=== PATIENT | male | born 1965 | race Caucasian/White ===

== ENCOUNTER 2020-05-08 10:05 | Outpatient (RCR) | payer OTHER, SELFPAY | END 2021-02-13 12:54 | disposition home or self-care (01) | LOC: HO.WCC 10:05 | PROVIDERS: PCP Nurse Practitioner Family; Visit Provider Surgery | DX: E11.621 Type 2 diabetes mellitus with foot ulcer (principal); E11.51 Type 2 diabetes mellitus with diabetic peripheral angiopathy without gangrene; L97.422 Non-pressure chronic ulcer of left heel and midfoot with fat layer exposed; E11.65 Type 2 diabetes mellitus with hyperglycemia; I10 Essential (primary) hypertension; B20 Human immunodeficiency virus [HIV] disease; F17.210 Nicotine dependence, cigarettes, uncomplicated; Z79.899 Other long term (current) drug therapy; Z79.891 Long term (current) use of opiate analgesic; Z79.4 Long term (current) use of insulin | CPT/HCPCS: 11042; 11043; 11045; 11046; 15275; 17250; 97597; 97605; 99183; 99212; 99213; Q4186; Q4187 ==

== ENCOUNTER 2020-06-26 09:56 | Outpatient (REF) | payer OTHER, SELFPAY ==
--- NOTE | 2020-06-26 10:10 | XR_ITS ---
EXAMINATION: XR CALCANEUS, LEFT CLINICAL INFORMATION: Diabetic foot ulcer COMPARISON: None TECHNIQUE: Lateral and axial views of the left calcaneus were obtained. FINDINGS: There is a soft tissue defect over the heel. There is adjacent periosteal reaction, osteopenia and bone loss of the posterior calcaneus questionable for osteomyelitis. There are calcaneal spurs. No fracture or dislocation is seen. XR/XR calcaneus LT min 2V IMPRESSION: Soft tissue defect over the posterior heel. There is periosteal reaction, focal osteopenia of bone loss of the adjacent posterior calcaneus questionable for osteomyelitis.
== END 2020-06-26 09:57 | disposition home or self-care (01) ==
LOC: HO.XRAY 09:56
PROVIDERS: PCP Registered Nurse; Visit Provider Surgery
DX: E11.621 Type 2 diabetes mellitus with foot ulcer (principal); L97.529 Non-pressure chronic ulcer of other part of left foot with unspecified severity
CPT/HCPCS: 73650

== ENCOUNTER → 2020-07-06 11:32 | Outpatient (BNVA) | payer OTHER, SELFPAY | PROVIDERS: Visit Provider Internal Medicine | DX: M86.9 Osteomyelitis, unspecified (principal); B20 Human immunodeficiency virus [HIV] disease | CPT/HCPCS: 99212 ==

== ENCOUNTER 2020-07-17 14:03 | Outpatient (REF) | payer OTHER, SELFPAY ==
--- NOTE | 2020-07-17 14:25 | XR_ITS ---
EXAMINATION: XR CHEST CLINICAL INFORMATION: Preprocedure COMPARISON: None TECHNIQUE: 2 views of the chest were obtained. FINDINGS: No significant abnormality is noted involving the heart, lungs, mediastinum, bony thorax or soft tissues. XR/XR chest 2V IMPRESSION: Unremarkable chest examination.
[2020-07-17 15:32] LABS: MANUAL DIFF FLAG NO
[2020-07-17 15:42] LABS: Basophils Absolute Auto 0.1 X10*3/uL (0.0-0.2); Basophils Percent Auto 0.8 % (0-2); Eosinophils Absolute Auto 0.3 X10*3/uL (0.0-0.4); Eosinophils Percent Auto 2.7 % (0-4); Hematocrit 35.8 % (42-52); Hemoglobin 12.4 g/dl (14.0-18.0); Imm Gran Abs Auto 0.05 X10*3/uL (0.00-0.03); Imm Gran Pct Auto 0.5 % (0.0-0.4); Lymphocytes Percent Auto 26.8 % (20-40); Mean Corpuscular HGB Conc 34.6 g/dl (31.0-36.0); Mean Corpuscular Hemoglobin 31.6 pg (27.0-33.0); Mean Corpuscular Volume 91.1 fL (80-98); Mean Platelet Volume 12.6 fL (9.4-12.4); Monocytes Absolute Auto 0.6 X10*3/uL (0.1-1.2); Neutrophils Absolute Auto 7.1 X10*3/uL (2.0-8.3); Neutrophils Percent Auto 64.2 % (45-73); Platelet Count 149 X10*3/uL (160-400); Red Blood Count 3.93 X10*6/uL (4.60-5.80); White Blood Count 11.1 X10*3/uL (4.8-10.8)
[2020-07-17 15:45] LABS: Estimated Average Glucose 235 mg/dL; Hemoglobin A1c % 9.8 %
[2020-07-17 15:57] LABS: Anion Gap 16 (12-20); Blood Urea Nitrogen 37 mg/dL (9-16); C Reactive Protein 0.44 mg/dL (< or = 0.50); Carbon Dioxide 31 mmol/L (22-29); Chloride 96 mmol/L (96-108); Estimated Glomerular Filt Rate 40; Glucose Fasting 258 mg/dL (60-99); Potassium 5.5 mmol/l (3.3-5.1); Sodium 137 mmol/L (135-145)
[2020-07-17 16:37] LABS: Erythrocyte Sedimentation Rate 62 MM/HR (0-15)
== END 2020-07-17 14:04 | disposition home or self-care (01) ==
LOC: HO.LAB 14:03
PROVIDERS: PCP Registered Nurse; Visit Provider Physician Assistant
DX: Z01.818 Encounter for other preprocedural examination (principal); R61 Generalized hyperhidrosis
CPT/HCPCS: 36415; 71046; 80048; 83036; 84134; 85025; 85652; 86140

== ENCOUNTER 2020-08-01 09:12 | Emergency (ER) | payer OTHER, SELFPAY ==
--- NOTE | 2020-08-01 09:21 | ECG_ITS ---
Test Reason : CHESTPRESS Blood Pressure : / mmHG Vent. Rate : 086 BPM Atrial Rate : 086 BPM P-R Int : 126 ms QRS Dur : 082 ms QT Int : 368 ms P-R-T Axes : 031 -08 021 degrees QTc Int : 440 ms Normal sinus rhythm Normal ECG When compared with ECG of 15-NOV-2019 14:59, No significant change was found Referred By: Mildred Nguyen Electronically Signed By:WANDA KOEHLER
[2020-08-01 09:31] VITALS: BMI 37.5
[2020-08-01 09:54] LABS: MANUAL DIFF FLAG SCAN; Monocytes Absolute Auto 0.5 X10*3/uL (0.1-1.2); PLT CLUMP 1; SCAN SMEAR FLAG 1
[2020-08-01 09:56] LABS: Basophils Absolute Auto 0.1 X10*3/uL (0.0-0.2); Basophils Percent Auto 0.9 % (0-2); Eosinophils Absolute Auto 0.2 X10*3/uL (0.0-0.4); Eosinophils Percent Auto 2.3 % (0-4); Hematocrit 32.3 % (42-52); Hemoglobin 10.9 g/dl (14.0-18.0); Imm Gran Abs Auto 0.02 X10*3/uL (0.00-0.03); Imm Gran Pct Auto 0.3 % (0.0-0.4); Lymphocytes Absolute Auto 1.6 X10*3/uL (1.2-4.9); Lymphocytes Percent Auto 20.7 % (20-40); Mean Corpuscular HGB Conc 33.7 g/dl (31.0-36.0); Mean Corpuscular Hemoglobin 31.1 pg (27.0-33.0); Mean Corpuscular Volume 92.3 fL (80-98); Mean Platelet Volume 12.2 fL (9.4-12.4); Monocytes Percent Auto 6.6 % (2-11); Neutrophils Absolute Auto 5.3 X10*3/uL (2.0-8.3); Neutrophils Percent Auto 69.2 % (45-73); Platelet Count 119 X10*3/uL (160-400); Red Cell Distribution Width 12.9 % (11.0-16.0); White Blood Count 7.7 X10*3/uL (4.8-10.8)
--- NOTE | 2020-08-01 09:58 | ED.GENADULT ---
HPI - General Adult General Chief complaint: General Medical Stated complaint: wound check Time Seen by Provider: 08/01/20 09:23 Source: patient Mode of arrival: ambulatory Limitations: no limitations History of Present Illness HPI narrative: 55 y/o male with history of HIV, DM and chronic left heel osteomyelitis who was [facility] with recurrent episode of diaphoresis and feeling unwell when he was in the hypercarbic chamber. Per the provider there a similar event occurred last week. Symptoms resolved when he came out the chamber and his vital signs were stable (both last week and this week). Given recurrence of symptoms patient was sent to the ER for further evaluation. On arrival patient reports feeling unwell while in the chamber but his symptoms are now resolved. He states he was sweaty and anxious. He denied chest pain, SOB, arm pain, neck pain, jaw pain, nausea, abd pain. MD complaint: ?pre-syncopal event Onset (ago): hour(s) (1) Severity: moderate Pain Consistency: now resolved Relieving factors: rest Exacerbating factors: none Associated symptoms: diaphoresis Treatments prior to arrival: none Related Data Allergies Allergy/AdvReac Type Severity Reaction Status Date / Time trazodone [TRAZODONE] Allergy Unknown UNKNOWN Unverified 04/19/20 16:30 Review of Systems Review of Systems: Constitutional: No Fever, No Chills Cardiovascular: No Chest Pain, No SOB, No Orthopnea, No Edema Respiratory: No Cough, No Sputum, No Wheezing, No dyspnea Gastrointestinal: No Nausea, No Vomiting, No Diarrhea, No abdominal Pain Musculoskeletal: No joint pain, No Myalgias Skin: No Skin Lesions, No rash Neuro: No Weakness, No Numbness, No Dizziness, No Headache Psych: No Anxiety/Panic, No Depression Heme/Lymph: No Bruising, No Lymphadenopathy Endocrine: No Polyuria, No Polydipsia PMFSH Past Medical History Attestation statement: The following information was validated with the patient. Medical History HIV (human immunodeficiency virus infection) Osteomyelitis Surgical History S/P angiogram of extremity Status post debridement Family History Family History Father Diabetes HTN (hypertension) Mother HTN (hypertension) Daughter No problems noted. Social History Social History Smoking Status: Current some day smoker Cigarettes Per Day: 4 Use of substances other than those prescribed or required for medical reasons: No Advance Directives: No Advance Directives Information Provided: Yes Physical Exam Vital Signs: Vital Signs: Last Vital Signs Pulse 87 08/01/20 10:31 Resp 14 08/01/20 10:23 BP 143/64 H 08/01/20 10:31 Pulse Ox 98 08/01/20 10:23 Body Mass Index 37.5 Appearance: Alert. Oriented X3. No acute distress. Eyes: Pupils equal, round and reactive to light. ENT: Pharynx normal. Neck: Normal inspection. Neck supple. CVS: Normal heart rate and rhythm. Pulses normal. Respiratory: No respiratory distress. Breath sounds normal. Abdomen: Soft and nontender. +BS x4 Skin: Skin warm and dry. Normal skin color. Normal skin turgor. No rashes. Extremities: No lower extremity edema. LLE wound wrapped in clean, dry dressing Neuro: Oriented X 3. No motor deficit. No sensory deficit. Course Course Course Narrative: 55 y/o male with chronic osteo, DM, HIV presenting with possible pre-syncopal event while in [facility]. Symptoms now resolved and patient feels back to baseline. His vitals are stable and he appears well. EKG is unremarkable. Will get lab work and orthostatic VS. Doubt ACS. Reevaluation(s) Reevaluation #1: EKG normal. Metabolic workup only showing hyperglycemia with glucose 341 - his A1cv is 9.8% with estimate average glucose of 235. No anion gap. Electrolytes stable and troponin is <3.5. Orthostatics negative. He continues to feel at his baseline. He is stable for discharge. Medical Decision Making Lab Data Result diagrams: 08/01/20 09:45 08/01/20 09:45 Labs: Lab Results 08/01/20 08/01/20 08/01/20 Range/Units 09:45 09:45 09:45 WBC 7.7 (4.8-10.8) X10*3/uL RBC 3.50 L (4.60-5.80) X10*6/uL Hgb 10.9 L (14.0-18.0) g/dl Hct 32.3 L (42-52) % MCV 92.3 (80-98) fL MCH 31.1 (27.0-33.0) pg MCHC 33.7 (31.0-36.0) g/dl RDW 12.9 (11.0-16.0) % Plt Count 119 L (160-400) X10*3/uL MPV 12.2 (9.4-12.4) fL Immature Gran % (Auto) 0.3 (0.0-0.4) % Neut % (Auto) 69.2 (45-73) % Lymph % (Auto) 20.7 (20-40) % [place] % (Auto) 6.6 (2-11) % Eos % (Auto) 2.3 (0-4) % Baso % (Auto) 0.9 (0-2) % Lymph # (Auto) 1.6 (1.2-4.9) X10*3/uL [place] # (Auto) 0.5 (0.1-1.2) X10*3/uL Eos # (Auto) 0.2 (0.0-0.4) X10*3/uL Baso # (Auto) 0.1 (0.0-0.2) X10*3/uL Abs Immat Gran (auto) 0.02 (0.00-0.03) X10*3/uL Absolute Neuts (auto) 5.3 (2.0-8.3) X10*3/uL Absolute Nucleated RBC 0.000 (0.0-0.012) X10*3/uL Nucleated RBC % (auto) 0.0 (0.0-0.2) /100WBC Smear Tech's Comments Not Reportable Hold Blue Top Sodium 134 L (135-145) mmol/L Potassium 4.7 (3.3-5.1) mmol/l Chloride 97 (96-108) mmol/L Carbon Dioxide 28 (22-29) mmol/L Anion Gap 14 (12-20) BUN 35 H (9-16) mg/dL Creatinine 1.35 (0.5-1.4) mg/dL Estim Creat Clear Calc 72.7 Estimated GFR 55 Random Glucose 341 H (60-115) mg/dL Calcium 8.8 (8.4-10.2) mg/dL Magnesium 1.7 (1.6-2.6) mg/dL Total Bilirubin 0.3 (0.0-1.0) mg/dL Direct Bilirubin < 0.2 (0.0-0.5) mg/dL AST 15 (5-37) U/L ALT 19 (0-40) U/L Alkaline Phosphatase 99 (39-117) U/L Troponin I High Sens < 3.5 (<3.5-35.0) ng/L Total Protein 7.5 (6.5-8.0) g/dL Albumin 3.7 (3.5-5.0) g/dL Urine Color Urine Appearance Urine pH (5.0-8.0) Ur Specific [place] (1.005-1.025) Urine Protein (NEG-TRACE) MG/DL Urine Glucose (UA) (NEG) MG/DL Urine Ketones (NEG) MG/DL Urine Blood (NEG) Urine Nitrite (NEG) Ur Leukocyte Esterase (NEG) 08/01/20 08/01/20 Range/Units 09:45 10:32 WBC (4.8-10.8) X10*3/uL RBC (4.60-5.80) X10*6/uL Hgb (14.0-18.0) g/dl Hct (42-52) % MCV (80-98) fL MCH (27.0-33.0) pg MCHC (31.0-36.0) g/dl RDW (11.0-16.0) % Plt Count (160-400) X10*3/uL MPV (9.4-12.4) fL Immature Gran % (Auto) (0.0-0.4) % Neut % (Auto) (45-73) % Lymph % (Auto) (20-40) % [place] % (Auto) (2-11) % Eos % (Auto) (0-4) % Baso % (Auto) (0-2) % Lymph # (Auto) (1.2-4.9) X10*3/uL [place] # (Auto) (0.1-1.2) X10*3/uL Eos # (Auto) (0.0-0.4) X10*3/uL Baso # (Auto) (0.0-0.2) X10*3/uL Abs Immat Gran (auto) (0.00-0.03) X10*3/uL Absolute Neuts (auto) (2.0-8.3) X10*3/uL Absolute Nucleated RBC (0.0-0.012) X10*3/uL Nucleated RBC % (auto) (0.0-0.2) /100WBC Smear Tech's Comments Hold Blue Top SEE NOTE Sodium (135-145) mmol/L Potassium (3.3-5.1) mmol/l Chloride (96-108) mmol/L Carbon Dioxide (22-29) mmol/L Anion Gap (12-20) BUN (9-16) mg/dL Creatinine (0.5-1.4) mg/dL Estim Creat Clear Calc Estimated GFR Random Glucose (60-115) mg/dL Calcium (8.4-10.2) mg/dL Magnesium (1.6-2.6) mg/dL Total Bilirubin (0.0-1.0) mg/dL Direct Bilirubin (0.0-0.5) mg/dL AST (5-37) U/L ALT (0-40) U/L Alkaline Phosphatase (39-117) U/L Troponin I High Sens (<3.5-35.0) ng/L Total Protein (6.5-8.0) g/dL Albumin (3.5-5.0) g/dL Urine Color YELLOW Urine Appearance CLEAR Urine pH 5.5 (5.0-8.0) Ur Specific [place] 1.025 (1.005-1.025) Urine Protein NEG (NEG-TRACE) MG/DL Urine Glucose (UA) 250 H (NEG) MG/DL Urine Ketones NEG (NEG) MG/DL Urine Blood NEG (NEG) Urine Nitrite NEG (NEG) Ur Leukocyte Esterase NEG (NEG) ECG Data Interpretation: normal sinus rhythm, HR 86, normal NH interval, normal QTc, no ischemic changes. Discharge Plan Discharge Clinical Impression: Pre-syncope, Anxiety Patient Disposition: Home, Self-Care Instructions: Near Syncope (ED), Anxiety (ED) Additional Instructions: Your lab workup today was unremarkable. Your EKG was normal. Your vital signs were normal. Your glucose was elevated - recommend adhering to diabetic diet and your diabetes medications. Recommend following up with your doctor this week. Your diabetes is not well controlled. Follow up with the [facility] for continued care. If you have recurrent symptoms of feeling unwell call your doctor or come back to the ER for further evaluation.
[2020-08-01 10:23] VITALS: BP 133/62; PULSE 81; RESP 14; O2SAT 98
[2020-08-01 10:25] LABS: Alanine Aminotransferase 19 U/L (0-40); Albumin Level 3.7 g/dL (3.5-5.0); Alkaline Phosphatase 99 U/L (39-117); Anion Gap 14 (12-20); Aspartate Amino Transferase 15 U/L (5-37); Bilirubin Direct < 0.2 mg/dL (0.0-0.5); Bilirubin Total 0.3 mg/dL (0.0-1.0); Blood Urea Nitrogen 35 mg/dL (9-16); Calcium 8.8 mg/dL (8.4-10.2); Carbon Dioxide 28 mmol/L (22-29); Chloride 97 mmol/L (96-108); Creatinine Clr Calc Pharmacy 72.7; Estimated Glomerular Filt Rate 55; Glucose Random 341 mg/dL (60-115); Magnesium 1.7 mg/dL (1.6-2.6); Potassium 4.7 mmol/l (3.3-5.1); Sodium 134 mmol/L (135-145); Total Protein 7.5 g/dL (6.5-8.0)
[2020-08-01 10:28] LABS: Troponin-I High Sensitivity < 3.5 ng/L (<3.5-35.0)
[2020-08-01 10:30] VITALS: BP 133/62; PULSE 87
[2020-08-01 10:31] VITALS: BP 140/63; BP 143/64; PULSE 82; PULSE 87
[2020-08-01 10:52] LABS: Glucose Urine UA 250 MG/DL (NEG); Leukocyte Esterase Urine NEG (NEG); Nitrite Urine NEG (NEG); PH 5.5 (5.0-8.0); Specific Gravity - Urine 1.025 (1.005-1.025); Urine Blood NEG (NEG); Urine Ketones NEG (NEG); Urine Protein NEG (NEG-TRACE)
[2020-08-01 10:56] LABS: Appearance Urine CLEAR; Color Urine YELLOW
[2020-08-01 11:25] VITALS: BP 156/82; PULSE 78; RESP 12; TEMP 37.1; O2SAT 100
== END 2020-08-01 11:37 | disposition home or self-care (01) ==
PROVIDERS: Physician Assistant; Emergency Provider Emergency Medicine Emergency Medical Services
DX: R55 Syncope and collapse (principal); F41.9 Anxiety disorder, unspecified; M86.672 Other chronic osteomyelitis, left ankle and foot; R61 Generalized hyperhidrosis; F17.200 Nicotine dependence, unspecified, uncomplicated; Z21 Asymptomatic human immunodeficiency virus [HIV] infection status
CPT/HCPCS: 36415; 80048; 80076; 81003; 83735; 84484; 85025; 93005; 99284

== ENCOUNTER → 2020-08-08 13:28 | Outpatient (BNVA) | payer OTHER, SELFPAY | PROVIDERS: PCP Nurse Practitioner Family; Referring Provider Nurse Practitioner Family; Visit Provider Surgery | DX: E11.621 Type 2 diabetes mellitus with foot ulcer (principal); L97.509 Non-pressure chronic ulcer of other part of unspecified foot with unspecified severity | CPT/HCPCS: 99202 ==

== ENCOUNTER → 2020-08-27 07:33 | Outpatient (REF) | payer OTHER, SELFPAY ==
--- NOTE | 2020-08-27 | NM_ITS ---
Myocardial perfusion study Indication: Shortness of breath evaluate for myocardial ischemia Technique: The patient was brought in for a Lexiscan perfusion study on 08/27/2020. Patient performed low-level exercise and was injected 0.4 mg of Lexiscan intravenously. Within a minute of injection, 30 mCi of sestamibi was given intravenously. Images were obtained using the SPECT gamma camera interlaced with the gating device. Images were obtained in supine position. Resting perfusion study was performed on 08/28/2020. Patient was administered 30 mCi of sestamibi intravenously at rest. Images were then obtained in supine position. Images obtained with and without CT attenuation. Total DLP 99 mGy-cm. Images were processed with the software and compared side to side in short axis, horizontal long axis and vertical long axis views. Findings: The stress perfusion study showed normal uptake of radiotracer in all segments of LV myocardium on attenuation corrected as well as non attenuated images.. The gated study shows normal LV systolic function with calculated LVEF of 66%. LV cavity is normal size. The gated study shows normal systolic wall thickening and contraction of segments. Resting study shows no change in perfusion pattern compared to stress perfusion study. Gating at rest reveals normal systolic wall motion with ejection fraction at 60%. The findings are consistent with normal myocardial perfusion. NM/NM alexandru perf SPECT rest & str Impression: 1. Myocardial perfusion imaging study shows normal myocardial perfusion 2. Gated LVEF is 66% 3. Transient ischemic dilatation not present EKG is nondiagnostic for ischemia
--- NOTE | 2020-08-27 08:00 | CA_ITS ---
Acquisition Time: 2020-08-27 09:11:55 Total Exercise Time: 00:02:00 Test Indications: Dyspnea Medications: Protocol: LEXISCAN Max HR: 109 BPM 66% of Pred: 165 BPM Max BP: 122/070 mmHG Max Work Load: 1.0 METS Pharmacological stress test with Lexiscan injection, while sitting and kicking his legs, without anginal symptoms, without arrythmia, with normotensive response to injection, with nondiagnostic EKG for ischemia. Nuclear images pending. Test reviewed with Dr Hill. Referred By: Ed Hill Overread By: NESHA PICHARDO
== END ==
LOC: HO.CARD 07:33
PROVIDERS: PCP Family Medicine; Visit Provider Internal Medicine Cardiovascular Disease
DX: R06.00 Dyspnea, unspecified (principal)
CPT/HCPCS: 78452; 93017; A9500; J0280; J2785

== ENCOUNTER → 2020-08-28 08:43 | Outpatient (REF) | payer OTHER, SELFPAY ==
--- NOTE | 2020-08-28 07:30 | CA_ITS ---
Transthoracic Echocardiogram Patient (Last, First, Middle): Santhosh Montanez, Gender: Male Date of : 1965 Age: 55 Procedure Date: 08/28/2020 Procedure Type: Transthoracic Echocardiogram Location: OP Height: 170.18 cm Weight: 91.63 kg BSA: 2.03 m2 Heart Rate: bpm BP: 124 / 80 mmHg Building Mechanic: Referring MD: Ed Hill MD Symptoms: DYSPNEA Study Quality: Good ECG Rhythm: Sinus Conclusions: - The left ventricular systolic function is normal. The visually estimated ejection fraction is between 65-70%. - No obvious valvular pathology seen on this study. Findings Left Ventricle Normal left ventricular cavity size. There is mildly increased left ventricular wall thickness. The left ventricular systolic function is normal. The visually estimated ejection fraction is between 65-70%. There is no evidence of regional wall motion abnormalities. Diastolic function is normal for age. Right Ventricle Normal right ventricular cavity size and systolic function. Atria The left atrium is normal in size. The right atrium is normal in size. Aortic Valve There is a normal trileaflet aortic valve. There is no aortic valve stenosis. There is no aortic valve regurgitation. Mitral Valve The mitral valve appears normal. There is no mitral valve regurgitation. There is no mitral valve stenosis. Pulmonic Valve The pulmonic valve was not well visualized. Tricuspid Valve Normal tricuspid valve structure. There is no tricuspid valve regurgitation. The pulmonary artery systolic pressure is normal. Great Vessels The aortic annulus, sinuses of valsalva, and asc aorta are normal in size. Venous The inferior vena cava is normal in size and collapses greater than 50% with inspiration. Pericardium/Pleural There is no evidence of pericardial effusion. Prior Study Comparison No significant change compared to prior study dated: 07/18/2014. Recommendations, Care & Conclusions No obvious valvular pathology seen on this study. Measurements 2D Linear Measurements IVSd: 1.17 0.6-0.9/0.6-1.0 cm LVIDd: 4.40 3.9-5.3/4.2-5.9 cm LVIDd Index: 2.17 2.4-3.2/2.2-3.1 cm/m2 LVIDs: 2.48 2.0-3.6 cm LVPWd: 1.15 0.7-1.1 cm Ao Root: 3.50 2.1-3.5 cm LA Diam: 3.20 2.7-3.8/3.0-4.0 cm LAIDs Index: 1.58 1.5-2.3 cm/m2 LV Mass: 227.01 67-162/88-224 g LV Mass Index: 111.83 43-95/49-115 g/m2 LVOT Diam: 2.30 3.0+(-)1.3 cm 2D Systolic Function EF 4C: 70.30 >55% EF 2C: 61.40 >55% EF BiP: 67.40 >55% Mitral Valve MV Pk E: 0.82 MV PK A: 0.93 MV Decel Time: 180.00 E/A: 0.90 E'Lateral: 8.99 E'Medial: 6.77 E/E' Med: 12.10 E/E' Lat: 9.10 PHT: 53.00 MVA PHT: 4.15 Decel Foster: 4.56 Aortic Valve AoV Pk David: 1.27 AoV Mn David: 0.85 AoV VTI: 0.27 AoV Pk Grad: 6.00 Aov Mn Grad: 3.00 MELLISSA Cont.VTI: 3.47 LVOT LVOT Pk David: 1.11 LVOT Mn David: 0.71 LVOT VTI: 0.22 LVOT Pk Grad: 5.00 LVOT Mn Grad: 2.00 LVOT Diam: 2.30 LVOT Area: 4.15 Diastolic Function MV Pk E: 0.82 MV Pk A: 0.93 E/A: 0.90 E'Medial: 6.77 E/E' Med: 12.10 E' Laterial: 8.99 E/E' Lat: 9.10 Tricuspid Valve TR Pk David: 1.83 TR Pk Grad: 13.00 RA Press: 3.00 RVSP: 16.00 Great Vessels Aorta Ao Root-2D: 3.50 2.0-3.7 cm Ao Asc: 3.30 2.1-3.4 cm Pulmonary Valve PV Pk David: 1.10 Peak PV Grad: 5.00 Updated in Other Vendor System with Status of Final Rodney Qiu MD electronically signed on 08/28/2020 4:49:46 PM with status of Final
== END ==
LOC: HO.CARD 08:43
PROVIDERS: PCP Family Medicine; Visit Provider Internal Medicine Cardiovascular Disease
DX: R06.00 Dyspnea, unspecified (principal)
CPT/HCPCS: 93306

== ENCOUNTER 2020-09-26 08:37 | Outpatient (REF) | payer OTHER, SELFPAY ==
--- NOTE | ~2020-09-26 | XR_ITS ---
EXAMINATION: XR CHEST CLINICAL INFORMATION: Barotrauma COMPARISON: 07/17/2020 TECHNIQUE: 2 views of the chest were obtained. FINDINGS: No significant abnormality is noted involving the heart, lungs, mediastinum, bony thorax or soft tissues. XR/XR chest 2V IMPRESSION: No acute pulmonary disease.
== END 2020-09-26 08:38 | disposition home or self-care (01) ==
LOC: HO.XRAY 08:37
PROVIDERS: PCP Registered Nurse; Visit Provider Physician Assistant
DX: T70.29XA Other effects of high altitude, initial encounter (principal); X58.XXXA Exposure to other specified factors, initial encounter
CPT/HCPCS: 71046

== ENCOUNTER → 2020-10-16 09:04 | Outpatient (BNVA) | payer OTHER, SELFPAY | PROVIDERS: PCP Registered Nurse; Visit Provider Surgery | DX: E11.621 Type 2 diabetes mellitus with foot ulcer (principal); L97.509 Non-pressure chronic ulcer of other part of unspecified foot with unspecified severity | CPT/HCPCS: 99212 ==

== ENCOUNTER → 2020-11-08 10:55 | Outpatient (BNVA) | payer OTHER, SELFPAY | PROVIDERS: PCP Registered Nurse; Visit Provider Surgery Vascular Surgery | DX: I73.9 Peripheral vascular disease, unspecified (principal) | CPT/HCPCS: 99212 ==

== ENCOUNTER 2020-11-12 10:35 | Outpatient (REF) | payer OTHER, SELFPAY ==
--- NOTE | ~2020-11-12 | US_ITS ---
EXAMINATION: COLOR-FLOW DUPLEX IMAGING OF THE BILATERAL LOWER EXTREMITY ARTERIAL SYSTEM. VELOCITY MEASUREMENTS THROUGHOUT THE FEMORAL ARTERIES WITH ANKLE-BRACHIAL PERIPHERAL ARTERIAL TESTING. CLINICAL INFORMATION: This is a 55-year-old male with a history of hypertension, hyperlipidemia, diabetes, vascular surgery, peripheral vascular disease, previous angioplasty. Interventional Radiologist: Brock Shen M.D., F.S.I.R., F.A.C.R. RIGHT FEMORAL RUNOFF VELOCITIES: The right common femoral artery measures 219 cm/s and biphasic. The right profunda femoral artery is 130 cm/s and is biphasic. Right proximal superficial femoral artery measures 105 cm/s and biphasic. Mid superficial femoral artery is 105 cm/s and biphasic. Distal right superficial femoral artery measures 103 cm/s and is biphasic. Right popliteal velocity measures 62 cm/s and is biphasic. The posterior tibial artery velocity measures 66 cm/s and was biphasic. The right ankle-brachial index is 0.71. LEFT FEMORAL RUNOFF VELOCITIES: The left common femoral artery measures 375 cm/s and biphasic. The left profunda femoral artery is 146 cm/s and is triphasic. Left proximal superficial femoral artery measures 140 cm/s and biphasic. Mid superficial femoral artery is 137 cm/s and biphasic. Distal left superficial femoral artery measures 225 cm/s and is biphasic. Left popliteal velocity measures 78 cm/s and is biphasic. The posterior tibial artery velocity measures 66 cm/s and was biphasic. The right ankle-brachial index is 0.61. Atherosclerotic plaque is seen throughout the arteries bilaterally. US/US arterial duplex LE BI IMPRESSION: 1. Bilateral abnormal peripheral arterial testing with abnormal ankle-brachial indices and velocity measurements. 2. There is elevated velocity in the right common femoral artery. No definite focal stenosis is seen in the inflow or outflow. 3. There is a 2-1 velocity shift with an elevated velocity in the distal left superficial femoral artery consistent with hemodynamically significant stenosis. 4. There are decreased ankle-brachial indices bilaterally with depressed waveforms consistent with moderate atherosclerotic disease and obstruction. 5. There is an elevated velocity in the left common femoral artery. No focal stenosis is seen in the left common femoral artery but this may be an indication of left external iliac artery disease.
== END 2020-11-12 10:36 | disposition home or self-care (01) ==
LOC: HO.US 10:35
PROVIDERS: PCP Registered Nurse; Visit Provider Surgery Vascular Surgery
DX: I73.9 Peripheral vascular disease, unspecified (principal)
CPT/HCPCS: 93923; 93925

== ENCOUNTER 2020-11-14 11:11 | Emergency (ER) | payer OTHER, SELFPAY ==
--- NOTE | ~2020-11-14 | XR_ITS ---
EXAMINATION: XR CHEST CLINICAL INFORMATION: Elevated glucose. COMPARISON: None TECHNIQUE: 2 views of the chest were obtained. FINDINGS: No significant abnormality is noted involving the heart, lungs, mediastinum, bony thorax or soft tissues. XR/XR chest 2V IMPRESSION: Unremarkable chest exam
--- NOTE | 2020-11-14 11:37 | ECG_ITS ---
Test Reason : HIGH BLOOD SUGAR Blood Pressure : / mmHG Vent. Rate : 072 BPM Atrial Rate : 072 BPM P-R Int : 128 ms QRS Dur : 076 ms QT Int : 382 ms P-R-T Axes : 019 -14 -06 degrees QTc Int : 418 ms Normal sinus rhythm Normal ECG When compared with ECG of 01-AUG-2020 09:17, No significant change was found Referred By: Shayy Mendoza Electronically Signed By:WANDA KOEHLER
[2020-11-14 11:53] VITALS: BP 151/73; PULSE 76; RESP 18; TEMP 36.7; O2SAT 98; BMI 31.9
[2020-11-14] MEDS: 0.9 % Sodium Chloride 1,000 ML 999 ML IVCONT (13:32)
[2020-11-14] MEDS: Insulin Regular, Human 100 UNIT/ML 3 ML VIAL 9 UNIT IVPUSH (13:37)
[2020-11-14 13:42] LABS: Basophils Absolute Auto 0.1 X10*3/uL (0.0-0.2); Basophils Percent Auto 0.8 % (0-2); Imm Gran Abs Auto 0.04 X10*3/uL (0.00-0.03); Imm Gran Pct Auto 0.4 % (0.0-0.4); Red Cell Distribution Width 12.8 % (11.0-16.0)
[2020-11-14 13:43] LABS: Eosinophils Absolute Auto 0.3 X10*3/uL (0.0-0.4); Eosinophils Percent Auto 2.7 % (0-4); Hematocrit 32.8 % (42-52); Hemoglobin 11.1 g/dl (14.0-18.0); Lymphocytes Absolute Auto 2.4 X10*3/uL (1.2-4.9); Lymphocytes Percent Auto 25.2 % (20-40); Mean Corpuscular HGB Conc 33.8 g/dl (31.0-36.0); Mean Corpuscular Hemoglobin 32.1 pg (27.0-33.0); Mean Corpuscular Volume 94.8 fL (80-98); Monocytes Absolute Auto 0.6 X10*3/uL (0.1-1.2); Monocytes Percent Auto 5.9 % (2-11); Neutrophils Absolute Auto 6.3 X10*3/uL (2.0-8.3); Platelet Count 129 X10*3/uL (160-400); Red Blood Count 3.46 X10*6/uL (4.60-5.80); White Blood Count 9.6 X10*3/uL (4.8-10.8)
[2020-11-14 13:45] LABS: Glucose, Whole Blood 326 mg/dL (60-115)
[2020-11-14 13:45] LABS: MANUAL DIFF FLAG NO; Prothrombin Time 11.6 SEC (10.8-13.0)
[2020-11-14 14:26] LABS: Acetone, serum QL Negative (Negative); Alanine Aminotransferase 15 U/L (0-40); Alkaline Phosphatase 93 U/L (39-117); Anion Gap 14 (12-20); Aspartate Amino Transferase 14 U/L (5-37); Bilirubin Total 0.4 mg/dL (0.0-1.0); Blood Urea Nitrogen 31 mg/dL (9-16); Calcium 9.3 mg/dL (8.4-10.2); Carbon Dioxide 27 mmol/L (22-29); Chloride 99 mmol/L (96-108); Estimated Glomerular Filt Rate 54; Glucose Random 386 mg/dL (60-115); Potassium 5.5 mmol/L (3.3-5.1); Sodium 134 mmol/L (135-145); Total Protein 7.8 g/dL (6.5-8.0)
[2020-11-14 14:26] LABS: Glucose, Whole Blood 285 mg/dL (60-115)
--- NOTE | 2020-11-14 14:45 | ED_ITS ---
HPI - Recheck/Abnormal Lab/Rx General Chief Complaint: Recheck/Abnormal Lab/Rx Stated Complaint: HIGH BLOOD SUGAR Time Seen by Provider: 11/14/20 11:22 Source: patient Mode of arrival: ambulatory Limitations: no limitations History of Present Illness HPI narrative: 55-year-old male With a past medical history of HIV, diabetes currently on p.o. and insulin, hypertension, hyperlipidemia, hepatitis, cirrhosis, history of drug dependence currently on methadone, peripheral vascular disease and chronic left heel osteomyelitis who received hyperbaric oxygen treatments at the wound center care is currently getting dressing change every other day by the wound center and being followed by Dr. Linares who was scheduling the patient today for skin graft today presenting to the ED after he was noted to have an elevated glucose prior to arrival. He reports he is currently on metformin 1000 mg daily, Lantus 80 units at bedtime. Humalog 90 units b.i.d. and trucility every Thursday, he reports he has been taking all his diabetes medications except for his Lantus 70 units at bedtime due to he ran out of it approximately 5-6 days ago and reports that the pharmacy has not refilled yet. He reports usually when he takes this at bedtime he does not have any problems in the morning although since he ran out he has been having elevated glucose levels. Denies any dizziness, lightheadedness, changes in vision, nausea/vomiting, chest pain, shortness of breath, palpitations, dyspnea on exertion, orthopnea, cough, neck pain/stiffness, abdominal pain, diarrhea, constipation, dysuria, hematuria, lower extremity edema or any other symptoms complaints or concerns at this time. MD complaint: abnormal lab (Elevated glucose) Related Data Home Medications Medication Instructions Recorded Confirmed albuterol sulfate 90 mcg/actuation 2 puff PO Q4H PRN 08/08/20 11/09/20 aerosol inhaler amlodipine 10 mg tablet 10 mg PO DAILY 08/08/20 11/09/20 ammonium lactate 12 % topical cream appl TOPICAL BID 08/08/20 10/16/20 aspirin 81 mg tablet,delayed 81 mg PO DAILY 08/08/20 11/09/20 release blood sugar diagnostic #10 ea 08/08/20 10/16/20 cholecalciferol (vitamin D3) 50 50 mcg PO DAILY 08/08/20 11/09/20 mcg (2,000 unit) tablet clopidogrel 75 mg tablet 75 mg PO DAILY 08/08/20 11/09/20 dulaglutide 1.5 mg/0.5 mL 3 mg SUBCUT QWEEK 08/08/20 11/09/20 subcutaneous pen injector emtricitabine 200 mg-rilpivirine 1 tab PO DAILY 08/08/20 11/09/20 25 mg-tenofovir alafenam 25 mg tablet furosemide 20 mg tablet 20 mg PO QAM PRN 08/08/20 11/09/20 hydrochlorothiazide 25 mg tablet 25 mg PO DAILY 08/08/20 11/09/20 insulin aspar prt-insulin aspart 90 unit SUBCUT BID 08/08/20 11/09/20 100 unit/mL (70-30) subcutaneous soln insulin glargine 100 unit/mL 80 unit SUBCUT BEDTIME 08/08/20 11/09/20 subcutaneous solution insulin syringe-needle U-100 1 mL #10 ea 08/08/20 10/16/20 29 gauge x 1/2 lisinopril 40 mg tablet 40 mg PO DAILY 08/08/20 11/09/20 lorazepam 0.5 mg tablet 0.5 mg PO DAILY PRN 08/08/20 11/09/20 metoprolol succinate 100 mg 100 mg PO DAILY 08/08/20 11/09/20 tablet,extended release 24 hr quetiapine 100 mg tablet 100 mg PO BEDTIME 08/08/20 11/09/20 lancets 33 gauge #100 ea 11/08/20 metformin 500 mg tablet,extended 1,000 mg PO DAILY 11/08/20 11/09/20 release 24 hr pen needle, diabetic 32 gauge x #50 ea 11/08/20 5/32 methadone mg PO QAM 11/12/20 omeprazole 20 mg PO DAILY 11/12/20 11/12/20 Previous Rx's Medication Instructions Recorded insulin glargine [Lantus U-100 80 unit SUBCUT QPM #100 ml 11/14/20 Insulin] Allergies Allergy/AdvReac Type Severity Reaction Status Date / Time trazodone [TRAZODONE] Allergy Unknown UNKNOWN Verified 11/14/20 11:45 Review of Systems Review of Systems: Constitutional : No Weight loss, No Fever, No Chills, No Night Sweats, No Fatigue, No Malaise ENT/Mouth : No Hearing loss, No Ear Pain, No Nasal Congestion, No Sinus Pain, No Hoarseness, No sore throat, No Rhinorrhea, No Swallowing Difficulty Eyes: No Eye Pain, No Swelling, No Redness, No Foreign Body, No Discharge, No Vision Changes Cardiovascular : No Chest Pain, No SOB, No Dyspnea on Exertion, No Orthopnea, No Edema, No Palpitations Respiratory : No Cough, No Sputum, No Wheezing, No Smoke Exposure, No Dyspnea Gastrointestinal : No Nausea, No Vomiting, No Diarrhea, No Constipation, No abdominal Pain, No Hematochezia, No Melena Genitourinary : no irregular bleeding, No Dysuria, No Urinary Frequency, No Hematuria, No Urinary Incontinence, No Urgency, No Flank Pain, No Urinary Flow Changes, No Hesitancy Musculoskeletal : No joint pain, No Myalgias, No Joint Swelling Skin : + chronic wound tp left heel, otherwise No other Skin Lesions, No rash Neuro : No Weakness, No Numbness, No Paresthesias, No Loss of Consciousness, No Dizziness, No Headache Psych : No Anxiety/Panic, No Depression, No SI/HI/AH/VH, No Social Issues, Heme/Lymph: No Bruising, No Bleeding,No Lymphadenopathy Endocrine : + elevated glucose levels, No Polyuria, No Polydipsia, No Temperature Intolerance Yes all other systems are reviewed and are negative [facility] Past Medical History Attestation statement: The following information was validated with the patient. Medical History Cirrhosis COVID-19 vaccine administered Depression Diabetes GERD (gastroesophageal reflux disease) Hepatitis History of hyperbaric oxygen therapy HIV (human immunodeficiency virus infection) Hx of drug dependence Hyperlipidemia Hypertension Osteomyelitis Surgical History S/P angiogram of extremity Status post debridement Family History Family History Father Diabetes HTN (hypertension) Mother HTN (hypertension) Daughter No problems noted. Social History Social History Household Members: Family Housing: House Smoking Status: Current every day smoker Tobacco Type: Cigarette Cigarettes Per Day: 10 Years Smoked: 40 Substance Use Type: Former Substance User and Heroin Advance Directives: No Advance Directives Information Provided: Yes Physical Exam Vital Signs: Vital Signs: Last Vital Signs Temp 98.0 F 11/14/20 11:53 Pulse 76 11/14/20 11:53 Resp 18 11/14/20 11:53 BP 151/73 H 11/14/20 11:53 Pulse Ox 98 11/14/20 11:53 Body Mass Index 31.9 vital signs have been reviewed as normal and appeared to be correct. Blood pressure hypertensive at 151/73. Heart rate normal. Respiration rate normal. Temperature normal. Oxygen saturation normal. Appearance: Alert. Oriented X3. No acute distress. Head: Normal external exam. Normocephalic. Atraumatic. Eyes: PERRLA. EOMI. Conjunctiva and sclera normal. Eyelids normal. ENT: Pharynx normal. Uvula midline. Moist mucous membranes. Neck: Normal inspection. Neck supple. FROM. No adenopathy. Thyroid Normal. No meningeal signs. No neck mass noted. CVS: Normal heart rate and rhythm. Heart sound normal. No murmurs noted. Pulses normal throughout. Respiratory: No respiratory distress. Painless inspiration. Breath sounds normal. No wheezes/rales/rhonchi noted. Chest nontender. No accessory muscle usage noted or decreased air movement noted. Back: Full range of motion noted. Nontender. Skin: To right foot heel aspect patient has a wound with dressing in place. See below for picture. No streaking or fluctuance noted at this time. The rest of the Skin is warm and dry. Normal skin color. Normal skin turgor. No additional rashes/lesions/lacerations noted. Extremities: No lower extremity edema. No calf tenderness noted bilaterally. Extremities exhibit normal range of motion. Extremities nontender. Neuro: Oriented X 3. No motor deficit. No sensory deficit. Reflexes normal. Course Course Course Narrative: 14:46pm - Patient mild baseline anemia improved when compared to prior. - sodium 134 - potassium 5.5 - glucose 386 - acetone level negative. - patient negative for COVID - will give the patient 45 g of Kayexalate and then will consult with Dr. Linares regarding the patient's surgery due to patient reports he was supposed to get surgery and does not want to leave until he has surgery. - will also send a prescription for the patient's Lantus to his pharmacy at this time. - patient understands agrees with this plan. MDM - Recheck/Abnormal Lab/Rx MDM Narrative Medical decision making narrative: 11:40am - 55-year-old male presenting to the ED with an elevated glucose due to not having his Lantus 80 units at bedtime for the past week sent here by Dr. Linares prior to skin graft surgery that was scheduled today. Patient denies any other symptoms complaints or concerns at this time. - on exam patient is alert and oriented x3. Not in any acute distress. Vital signs are stable within normal limits. No focal neuro deficits are noted. Lungs CTA. CV RRR. Abdomen is soft and nontender. No calf tenderness or lower extremity edema noted. Patient with chronic wound to right heel no surrounding erythema/streaking. - Plan: Labs. Provide a L of IV fluids and insulin then re-evaluate. Medical Records Attestation: I reviewed the patient's medical records. Lab Data Attestation: I reviewed the patient's lab results. Result diagrams: 11/14/20 13:31 11/14/20 13:31 Labs: Lab Results 11/14/20 11/14/20 11/14/20 Range/Units 13:31 13:31 13:31 WBC 9.6 (4.8-10.8) X10*3/uL RBC 3.46 L (4.60-5.80) X10*6/uL Hgb 11.1 L (14.0-18.0) g/dl Hct 32.8 L (42-52) % MCV 94.8 (80-98) fL MCH 32.1 (27.0-33.0) pg MCHC 33.8 (31.0-36.0) g/dl RDW 12.8 (11.0-16.0) % Plt Count 129 L (160-400) X10*3/uL MPV 12.0 (9.4-12.4) fL Immature Gran % (Auto) 0.4 (0.0-0.4) % Neut % (Auto) 65.0 (45-73) % Lymph % (Auto) 25.2 (20-40) % [place] % (Auto) 5.9 (2-11) % Eos % (Auto) 2.7 (0-4) % Baso % (Auto) 0.8 (0-2) % Lymph # (Auto) 2.4 (1.2-4.9) X10*3/uL [place] # (Auto) 0.6 (0.1-1.2) X10*3/uL Eos # (Auto) 0.3 (0.0-0.4) X10*3/uL Baso # (Auto) 0.1 (0.0-0.2) X10*3/uL Abs Immat Gran (auto) 0.04 H (0.00-0.03) X10*3/uL Absolute Neuts (auto) 6.3 (2.0-8.3) X10*3/uL Absolute Nucleated RBC 0.000 (0.0-0.012) X10*3/uL Nucleated RBC % (auto) 0.0 (0.0-0.2) /100WBC Hold Purple Top PT 11.6 (10.8-13.0) SEC INR 1.0 (0.9-1.1) Sodium (135-145) mmol/L Potassium (3.3-5.1) mmol/L Chloride (96-108) mmol/L Carbon Dioxide (22-29) mmol/L Anion Gap (12-20) BUN (9-16) mg/dL Creatinine (0.5-1.4) mg/dL Estim Creat Clear Calc Estimated GFR POC Glucose (60-115) mg/dL Random Glucose (60-115) mg/dL Calcium (8.4-10.2) mg/dL Magnesium 2.0 (1.6-2.6) mg/dL Total Bilirubin (0.0-1.0) mg/dL AST (5-37) U/L ALT (0-40) U/L Alkaline Phosphatase (39-117) U/L Total Protein (6.5-8.0) g/dL Albumin (3.5-5.0) g/dL Acetone, Qual Negative (Negative) 11/14/20 11/14/20 11/14/20 Range/Units 13:31 13:31 13:41 WBC (4.8-10.8) X10*3/uL RBC (4.60-5.80) X10*6/uL Hgb (14.0-18.0) g/dl Hct (42-52) % MCV (80-98) fL MCH (27.0-33.0) pg MCHC (31.0-36.0) g/dl RDW (11.0-16.0) % Plt Count (160-400) X10*3/uL MPV (9.4-12.4) fL Immature Gran % (Auto) (0.0-0.4) % Neut % (Auto) (45-73) % Lymph % (Auto) (20-40) % [place] % (Auto) (2-11) % Eos % (Auto) (0-4) % Baso % (Auto) (0-2) % Lymph # (Auto) (1.2-4.9) X10*3/uL [place] # (Auto) (0.1-1.2) X10*3/uL Eos # (Auto) (0.0-0.4) X10*3/uL Baso # (Auto) (0.0-0.2) X10*3/uL Abs Immat Gran (auto) (0.00-0.03) X10*3/uL Absolute Neuts (auto) (2.0-8.3) X10*3/uL Absolute Nucleated RBC (0.0-0.012) X10*3/uL Nucleated RBC % (auto) (0.0-0.2) /100WBC Hold Purple Top SEE NOTE PT (10.8-13.0) SEC INR (0.9-1.1) Sodium 134 L (135-145) mmol/L Potassium 5.5 H (3.3-5.1) mmol/L Chloride 99 (96-108) mmol/L Carbon Dioxide 27 (22-29) mmol/L Anion Gap 14 (12-20) BUN 31 H (9-16) mg/dL Creatinine 1.37 (0.5-1.4) mg/dL Estim Creat Clear Calc 66.0 Estimated GFR 54 POC Glucose 326 H (60-115) mg/dL Random Glucose 386 H* (60-115) mg/dL Calcium 9.3 (8.4-10.2) mg/dL Magnesium (1.6-2.6) mg/dL Total Bilirubin 0.4 (0.0-1.0) mg/dL AST 14 (5-37) U/L ALT 15 (0-40) U/L Alkaline Phosphatase 93 (39-117) U/L Total Protein 7.8 (6.5-8.0) g/dL Albumin 4.0 (3.5-5.0) g/dL Acetone, Qual (Negative) 11/14/20 Range/Units 14:22 WBC (4.8-10.8) X10*3/uL RBC (4.60-5.80) X10*6/uL Hgb (14.0-18.0) g/dl Hct (42-52) % MCV (80-98) fL MCH (27.0-33.0) pg MCHC (31.0-36.0) g/dl RDW (11.0-16.0) % Plt Count (160-400) X10*3/uL MPV (9.4-12.4) fL Immature Gran % (Auto) (0.0-0.4) % Neut % (Auto) (45-73) % Lymph % (Auto) (20-40) % [place] % (Auto) (2-11) % Eos % (Auto) (0-4) % Baso % (Auto) (0-2) % Lymph # (Auto) (1.2-4.9) X10*3/uL [place] # (Auto) (0.1-1.2) X10*3/uL Eos # (Auto) (0.0-0.4) X10*3/uL Baso # (Auto) (0.0-0.2) X10*3/uL Abs Immat Gran (auto) (0.00-0.03) X10*3/uL Absolute Neuts (auto) (2.0-8.3) X10*3/uL Absolute Nucleated RBC (0.0-0.012) X10*3/uL Nucleated RBC % (auto) (0.0-0.2) /100WBC Hold Purple Top PT (10.8-13.0) SEC INR (0.9-1.1) Sodium (135-145) mmol/L Potassium (3.3-5.1) mmol/L Chloride (96-108) mmol/L Carbon Dioxide (22-29) mmol/L Anion Gap (12-20) BUN (9-16) mg/dL Creatinine (0.5-1.4) mg/dL Estim Creat Clear Calc Estimated GFR POC Glucose 285 H (60-115) mg/dL Random Glucose (60-115) mg/dL Calcium (8.4-10.2) mg/dL Magnesium (1.6-2.6) mg/dL Total Bilirubin (0.0-1.0) mg/dL AST (5-37) U/L ALT (0-40) U/L Alkaline Phosphatase (39-117) U/L Total Protein (6.5-8.0) g/dL Albumin (3.5-5.0) g/dL Acetone, Qual (Negative) Critical Care Time Critical Care Time Critical Care Time: Yes Total Critical Care Time: 60 Attestation: I personally attest to this time spent taking care of the patient Discharge Plan Discharge Clinical Impression: Acute hyperglycemia, Acute hyperkalemia Instructions: Diabetic Hyperglycemia (ED) Prescriptions: New Lantus U-100 Insulin 100 unit/mL solution 80 unit subcut QPM Qty: 100 RF: 1 No Action omeprazole 20 mg Tablet,Delayed Release (Dr/Ec) 20 mg PO DAILY RF: 0 methadone 10 mg/mL Concentrate PO QAM RF: 0 albuterol sulfate 90 mcg/actuation HFA aerosol inhaler 2 puff PO Q4H PRN (Reason: Wheezing) RF: 0 hydrochlorothiazide 25 mg tablet 25 mg PO DAILY RF: 0 lisinopril 40 mg tablet 40 mg PO DAILY RF: 0 amlodipine 10 mg tablet 10 mg PO DAILY RF: 0 metoprolol succinate 100 mg tablet extended release 24 hr 100 mg PO DAILY RF: 0 quetiapine 100 mg tablet 100 mg PO BEDTIME RF: 0 Lantus U-100 Insulin 100 unit/mL solution 80 unit subcut BEDTIME RF: 0 clopidogrel 75 mg tablet 75 mg PO DAILY RF: 0 insulin asp prt-insulin aspart 100 unit/mL (70-30) solution 90 unit subcut BID RF: 0 (DME) FreeStyle Lite Strips Strip See Rx Instructions ea Not Applicable .MEDSUPPLY Qty: 10 RF: 0 aspirin 81 mg tablet,delayed release (DR/EC) 81 mg PO DAILY RF: 0 lorazepam 0.5 mg tablet 0.5 mg PO DAILY PRN (Reason: anxiety) RF: 0 ammonium lactate 12 % cream topical BID RF: 0 furosemide 20 mg tablet 20 mg PO QAM PRN (Reason: swelling) RF: 0 (DME) insulin syringe-needle U-100 1 mL 29 gauge x 1/2 syringe See Rx Instructions ea .ROUTE TID Qty: 10 RF: 0 cholecalciferol (vitamin D3) 50 mcg (2,000 unit) tablet 50 mcg PO DAILY RF: 0 Trulicity 1.5 mg/0.5 mL pen injector 3 mg subcut QWEEK RF: 0 O[place] 200-25-25 mg tablet 1 tab PO DAILY RF: 0 Referrals: Suzie Main, [facility] [Primary Care Provider] - 2 days Print Language: Austrian
[2020-11-14] MEDS: Sodium Polystyrene Sulfon/Sorb 15 GM/60 ML ORAL.SUSP 45 GM PO (15:39)
[2020-11-14 15:45] VITALS: BP 163/7; PULSE 71; RESP 18; O2SAT 100
== END 2020-11-14 15:48 | disposition home or self-care (01) ==
PROVIDERS: Physician Assistant Medical; Emergency Provider Emergency Medicine Emergency Medical Services; PCP Registered Nurse
DX: E11.65 Type 2 diabetes mellitus with hyperglycemia (principal); E87.5 Hyperkalemia; Z79.82 Long term (current) use of aspirin; Z79.899 Other long term (current) drug therapy; Z79.4 Long term (current) use of insulin
CPT/HCPCS: 36415; 71046; 80053; 82009; 82947; 83735; 85025; 85610; 93005; 96361; 96374; 99283; 99291

== ENCOUNTER → 2020-11-14 | Day surgery (SDC) | payer OTHER, SELFPAY ==
--- NOTE | 2020-11-12 12:02 | HO.ANESPROP2 ---
HPI - Anesthesia Eval Consult details Narrative: 55yo M for Left Split Thickness from Thigh to Heel, Wound Vac Placement Methadone daily Plavix for PVD Cx'd DOS for high blood sugar. Sent to ED [facility] Active Problems Active Problems: All Active Problems (Updated 11/11/20 @ 09:23 by Luke Billings MD) PVD (peripheral vascular disease) (Acute) Diabetic foot ulcer (Acute) Osteomyelitis (Acute) HIV (human immunodeficiency virus infection) (Acute) Past Medical History Medical History (Updated 11/14/20 @ 14:48 by ARNOLD Alcazar) Cirrhosis COVID-19 vaccine administered Depression Diabetes GERD (gastroesophageal reflux disease) Hepatitis History of hyperbaric oxygen therapy HIV (human immunodeficiency virus infection) Hx of drug dependence Hyperlipidemia Hypertension Osteomyelitis Family History Family History Father Diabetes HTN (hypertension) Mother HTN (hypertension) Daughter No problems noted. Surgical History Surgical History S/P angiogram of extremity Status post debridement Social History Social History (Updated 11/12/20 @ 12:50 by Argelia Kimbrough) Household Members: Family Housing: House Smoking Status: Current every day smoker Tobacco Type: Cigarette Cigarettes Per Day: 10 Years Smoked: 40 Substance Use Type: Former Substance User and Heroin Advance Directives: No Advance Directives Information Provided: Yes Meds Allergies Allergy/AdvReac Type Severity Reaction Status Date / Time trazodone [TRAZODONE] Allergy Unknown UNKNOWN Verified 11/14/20 11:45 Home Medications Medication Instructions Recorded Confirmed Last Taken Type albuterol sulfate 90 mcg/actuation 2 puff PO Q4H PRN 08/08/20 11/09/20 Unknown History aerosol inhaler amlodipine 10 mg tablet 10 mg PO DAILY 08/08/20 11/09/20 Unknown History ammonium lactate 12 % topical cream appl TOPICAL BID 08/08/20 10/16/20 Unknown History aspirin 81 mg tablet,delayed 81 mg PO DAILY 08/08/20 11/09/20 Unknown History release blood sugar diagnostic #10 ea 08/08/20 10/16/20 Unknown History cholecalciferol (vitamin D3) 50 50 mcg PO DAILY 08/08/20 11/09/20 Unknown History mcg (2,000 unit) tablet clopidogrel 75 mg tablet 75 mg PO DAILY 08/08/20 11/09/20 10/31/20 History dulaglutide 1.5 mg/0.5 mL 3 mg SUBCUT QWEEK 08/08/20 11/09/20 Unknown History subcutaneous pen injector emtricitabine 200 mg-rilpivirine 1 tab PO DAILY 08/08/20 11/09/20 Unknown History 25 mg-tenofovir alafenam 25 mg tablet furosemide 20 mg tablet 20 mg PO QAM PRN 08/08/20 11/09/20 Unknown History hydrochlorothiazide 25 mg tablet 25 mg PO DAILY 08/08/20 11/09/20 Unknown History insulin aspar prt-insulin aspart 90 unit SUBCUT BID 08/08/20 11/09/20 Unknown History 100 unit/mL (70-30) subcutaneous soln insulin glargine 100 unit/mL 80 unit SUBCUT BEDTIME 08/08/20 11/09/20 Unknown History subcutaneous solution insulin syringe-needle U-100 1 mL #10 ea 08/08/20 10/16/20 Unknown History 29 gauge x 1/2 lisinopril 40 mg tablet 40 mg PO DAILY 08/08/20 11/09/20 Unknown History lorazepam 0.5 mg tablet 0.5 mg PO DAILY PRN 08/08/20 11/09/20 Unknown History metoprolol succinate 100 mg 100 mg PO DAILY 08/08/20 11/09/20 11/14/20 09:30 History tablet,extended release 24 hr quetiapine 100 mg tablet 100 mg PO BEDTIME 08/08/20 11/09/20 Unknown History lancets 33 gauge #100 ea 11/08/20 Unknown History metformin 500 mg tablet,extended 1,000 mg PO DAILY 11/08/20 11/09/20 Unknown History release 24 hr pen needle, diabetic 32 gauge x #50 ea 11/08/20 Unknown History 5/32 methadone mg PO QAM 11/12/20 11/14/20 09:30 History omeprazole 20 mg PO DAILY 11/12/20 11/12/20 Unknown History Exam Exam Date and Time: November 12, 2020 1202 Narrative Narrative: EKG 07/2020 Vent. Rate : 086 BPM Atrial Rate : 086 BPM P-R Int : 126 ms QRS Dur : 082 ms QT Int : 368 ms P-R-T Axes : 031 -08 021 degrees QTc Int : 440 ms Normal sinus rhythm Normal ECG When compared with ECG of 15-NOV-2019 14:59, No significant change was found ECHO 08/2020 Conclusions: - The left ventricular systolic function is normal. The visually estimated ejection fraction is between 65-70%. - No obvious valvular pathology seen on this study. NM alexandru perf SPECT rest & str 08/2020 Impression: 1. Myocardial perfusion imaging study shows normal myocardial perfusion 2. Gated LVEF is 66% 3. Transient ischemic dilatation not present EKG is nondiagnostic for ischemia Assessment and Plan Assessment Anesthesia Assessment: Chart Reviewed
[2020-11-12 12:38] VITALS: BMI 31.9
[2020-11-14 10:50] LABS: Glucose, Whole Blood 398 mg/dL (60-115)
[2020-11-14 10:53] LABS: Hematocrit 31.6 % (42-52); Hemoglobin 10.7 g/dl (14.0-18.0); Mean Corpuscular HGB Conc 33.9 g/dl (31.0-36.0); Mean Corpuscular Hemoglobin 31.8 pg (27.0-33.0); Mean Corpuscular Volume 93.8 fL (80-98); Mean Platelet Volume 11.8 fL (9.4-12.4); Platelet Count 116 X10*3/uL (160-400); Red Blood Count 3.37 X10*6/uL (4.60-5.80); Red Cell Distribution Width 12.6 % (11.0-16.0); White Blood Count 7.3 X10*3/uL (4.8-10.8)
[2020-11-14 10:54] LABS: Prothrombin Time 11.5 SEC (10.8-13.0)
--- NOTE | 2020-11-14 11:06 | PC.NURSE ---
pt sitting in chair. questions asked to get started to admit. bs checked and 398. anesthesia made aware and surgery cancelled. pt brought to emergency room per doctor's request.
[2020-11-14 11:14] LABS: COVID-19 Test Negative (Negative)
[2020-11-14 11:26] LABS: Alanine Aminotransferase 15 U/L (0-40); Albumin Level 3.8 g/dL (3.5-5.0); Alkaline Phosphatase 91 U/L (39-117); Anion Gap 13 (12-20); Aspartate Amino Transferase 13 U/L (5-37); Bilirubin Total 0.4 mg/dL (0.0-1.0); Blood Urea Nitrogen 32 mg/dL (9-16); Calcium 9.2 mg/dL (8.4-10.2); Carbon Dioxide 26 mmol/L (22-29); Chloride 99 mmol/L (96-108); Estimated Glomerular Filt Rate 54; Potassium 5.1 mmol/L (3.3-5.1); Sodium 133 mmol/L (135-145); Total Protein 7.4 g/dL (6.5-8.0)
[2020-11-14 15:20] LABS: Glucose Fasting 395 mg/dL (60-99)
== END ==
LOC: HO.SSSA 15:12 → HO.SSS 11-15 12:59
PROVIDERS: Nurse Practitioner; PCP Registered Nurse; Visit Provider Surgery
DX: E11.621 Type 2 diabetes mellitus with foot ulcer (principal); L97.529 Non-pressure chronic ulcer of other part of left foot with unspecified severity; Z53.9 Procedure and treatment not carried out, unspecified reason; E11.69 Type 2 diabetes mellitus with other specified complication; E11.51 Type 2 diabetes mellitus with diabetic peripheral angiopathy without gangrene; M86.9 Osteomyelitis, unspecified; Z79.4 Long term (current) use of insulin; B20 Human immunodeficiency virus [HIV] disease; Z79.01 Long term (current) use of anticoagulants; F11.20 Opioid dependence, uncomplicated; Z20.822 Contact with and (suspected) exposure to COVID-19
CPT/HCPCS: 36415; 80053; 82947; 85027; 85610; 87635; 93923; 93925

== ENCOUNTER → 2020-12-04 09:28 | Outpatient (BNVA) | payer OTHER, SELFPAY | PROVIDERS: PCP Registered Nurse; Visit Provider Surgery Vascular Surgery | DX: I73.9 Peripheral vascular disease, unspecified (principal) | CPT/HCPCS: 99212 ==

== ENCOUNTER 2020-12-05 10:40 | Inpatient (IN) | payer OTHER, SELFPAY ==
--- NOTE | 2020-12-04 10:05 | HO.ANESPROP2 ---
Documented by User: Nayla Orosconey 12/04/20 10:12 HPI - Anesthesia Eval Consult details Narrative: 55yo M for Left Split Thickness from Thigh to Heel, Wound Vac Placement Methadone daily Plavix for PVD Cx'd DOS for high blood sugar (BS = 398, A1C = 10). Sent to ED. Dr Vijay vaz. [facility] Active Problems Active Problems: All Active Problems (Updated 11/15/20 @ 00:01 by Background [place]) Hypertension (Acute) Hyperlipidemia (Acute) Hx of drug dependence (Acute) Hepatitis (Acute) GERD (gastroesophageal reflux disease) (Acute) Diabetes (Acute) Depression (Acute) COVID-19 vaccine administered (Acute) Cirrhosis (Acute) Diabetic foot ulcer (Acute) PVD (peripheral vascular disease) (Acute) Osteomyelitis (Acute) HIV (human immunodeficiency virus infection) (Acute) Past Medical History Medical History Cirrhosis COVID-19 vaccine administered Depression Diabetes GERD (gastroesophageal reflux disease) Hepatitis History of hyperbaric oxygen therapy HIV (human immunodeficiency virus infection) Hx of drug dependence Hyperlipidemia Hypertension Osteomyelitis Family History Family History Father Diabetes HTN (hypertension) Mother HTN (hypertension) Daughter No problems noted. Surgical History Surgical History S/P angiogram of extremity Status post debridement Social History Social History Household Members: Family Housing: House Are you a primary care management specialist to a significant other at home: No Do you presently have visiting nurse or other home services: Yes Smoking Status: Current every day smoker Tobacco Type: Cigarette Cigarettes Per Day: 10 Years Smoked: 40 Use of substances other than those prescribed or required for medical reasons: No Substance Use Type: Former Substance User and Heroin Have you been hit, kicked, punched, or otherwise hurt by someone within the past year? If so, by whom?: No Are you DNR?: No Advance Directives: No Advance Directives Information Provided: No Meds Allergies Allergy/AdvReac Type Severity Reaction Status Date / Time trazodone [TRAZODONE] Allergy Unknown UNKNOWN Verified 12/04/20 09:37 Home Medications Medication Instructions Recorded Confirmed Last Taken Type albuterol sulfate 90 mcg/actuation 2 puff PO Q4H PRN 08/08/20 11/09/20 Unknown History aerosol inhaler amlodipine 10 mg tablet 10 mg PO DAILY 08/08/20 11/09/20 Unknown History ammonium lactate 12 % topical cream appl TOPICAL BID 08/08/20 10/16/20 Unknown History aspirin 81 mg tablet,delayed 81 mg PO DAILY 08/08/20 11/09/20 Unknown History release blood sugar diagnostic #10 ea 08/08/20 10/16/20 Unknown History cholecalciferol (vitamin D3) 50 50 mcg PO DAILY 08/08/20 11/09/20 Unknown History mcg (2,000 unit) tablet clopidogrel 75 mg tablet 75 mg PO DAILY 08/08/20 11/09/20 10/31/20 History dulaglutide 1.5 mg/0.5 mL 3 mg SUBCUT QWEEK 08/08/20 11/09/20 Unknown History subcutaneous pen injector emtricitabine 200 mg-rilpivirine 1 tab PO DAILY 08/08/20 11/09/20 Unknown History 25 mg-tenofovir alafenam 25 mg tablet furosemide 20 mg tablet 20 mg PO QAM PRN 08/08/20 11/09/20 Unknown History hydrochlorothiazide 25 mg tablet 25 mg PO DAILY 08/08/20 11/09/20 Unknown History insulin aspar prt-insulin aspart 90 unit SUBCUT BID 08/08/20 11/09/20 Unknown History 100 unit/mL (70-30) subcutaneous soln insulin glargine 100 unit/mL 80 unit SUBCUT BEDTIME 08/08/20 11/09/20 Unknown History subcutaneous solution insulin syringe-needle U-100 1 mL #10 ea 08/08/20 10/16/20 Unknown History 29 gauge x 1/2 lisinopril 40 mg tablet 40 mg PO DAILY 08/08/20 11/09/20 Unknown History lorazepam 0.5 mg tablet 0.5 mg PO DAILY PRN 08/08/20 11/09/20 Unknown History metoprolol succinate 100 mg 100 mg PO DAILY 08/08/20 11/09/20 11/14/20 09:30 History tablet,extended release 24 hr quetiapine 100 mg tablet 100 mg PO BEDTIME 08/08/20 11/09/20 Unknown History lancets 33 gauge #100 ea 11/08/20 Unknown History metformin 500 mg tablet,extended 1,000 mg PO DAILY 11/08/20 11/09/20 Unknown History release 24 hr pen needle, diabetic 32 gauge x #50 ea 11/08/20 Unknown History methadone mg PO QAM 11/12/20 11/14/20 09:30 History omeprazole 20 mg PO DAILY 11/12/20 11/12/20 Unknown History insulin aspart U-100 100 unit/mL unit SUBCUT 12/04/20 Unknown History (3 mL) subcutaneous pen Exam Exam Date and Time: December 04, 2020 1005 Narrative Narrative: EKG 07/2020 Vent. Rate : 086 BPM Atrial Rate : 086 BPM P-R Int : 126 ms QRS Dur : 082 ms QT Int : 368 ms P-R-T Axes : 031 -08 021 degrees QTc Int : 440 ms Normal sinus rhythm Normal ECG When compared with ECG of 15-NOV-2019 14:59, No significant change was found ECHO 08/2020 Conclusions: - The left ventricular systolic function is normal. The visually estimated ejection fraction is between 65-70%. - No obvious valvular pathology seen on this study. NM alexandru perf SPECT rest & str 08/2020 Impression: 1. Myocardial perfusion imaging study shows normal myocardial perfusion 2. Gated LVEF is 66% 3. Transient ischemic dilatation not present EKG is nondiagnostic for ischemia Assessment and Plan Assessment Anesthesia Assessment: Chart Reviewed Documented by User: Kevin Ryder 12/05/20 11:34 [facility] Past Medical History Medical History Cirrhosis COVID-19 vaccine administered Depression Diabetes GERD (gastroesophageal reflux disease) Hepatitis History of hyperbaric oxygen therapy HIV (human immunodeficiency virus infection) Hx of drug dependence Hyperlipidemia Hypertension Osteomyelitis Family History Family History Father Diabetes HTN (hypertension) Mother HTN (hypertension) Daughter No problems noted. Surgical History Surgical History S/P angiogram of extremity Status post debridement Social History Social History Household Members: Family Housing: House Are you a primary care management specialist to a significant other at home: No Do you presently have visiting nurse or other home services: Yes Smoking Status: Current every day smoker Tobacco Type: Cigarette Cigarettes Per Day: 10 Years Smoked: 40 Use of substances other than those prescribed or required for medical reasons: No Substance Use Type: Former Substance User and Heroin Have you been hit, kicked, punched, or otherwise hurt by someone within the past year? If so, by whom?: No Are you DNR?: No Advance Directives: No Advance Directives Information Provided: No Meds Allergies Allergy/AdvReac Type Severity Reaction Status Date / Time trazodone [TRAZODONE] Allergy Unknown UNKNOWN Verified 12/04/20 09:37 Home Medications Medication Instructions Recorded Confirmed Last Taken Type albuterol sulfate 90 mcg/actuation 2 puff PO Q4H PRN 08/08/20 11/09/20 Unknown History aerosol inhaler amlodipine 10 mg tablet 10 mg PO DAILY 08/08/20 11/09/20 Unknown History ammonium lactate 12 % topical cream appl TOPICAL BID 08/08/20 10/16/20 Unknown History aspirin 81 mg tablet,delayed 81 mg PO DAILY 08/08/20 11/09/20 Unknown History release blood sugar diagnostic #10 ea 08/08/20 10/16/20 Unknown History cholecalciferol (vitamin D3) 50 50 mcg PO DAILY 08/08/20 11/09/20 Unknown History mcg (2,000 unit) tablet clopidogrel 75 mg tablet 75 mg PO DAILY 08/08/20 11/09/20 10/31/20 History dulaglutide 1.5 mg/0.5 mL 3 mg SUBCUT QWEEK 08/08/20 11/09/20 Unknown History subcutaneous pen injector emtricitabine 200 mg-rilpivirine 1 tab PO DAILY 08/08/20 11/09/20 Unknown History 25 mg-tenofovir alafenam 25 mg tablet furosemide 20 mg tablet 20 mg PO QAM PRN 08/08/20 11/09/20 Unknown History hydrochlorothiazide 25 mg tablet 25 mg PO DAILY 08/08/20 11/09/20 Unknown History insulin aspar prt-insulin aspart 90 unit SUBCUT BID 08/08/20 11/09/20 Unknown History 100 unit/mL (70-30) subcutaneous soln insulin glargine 100 unit/mL 80 unit SUBCUT BEDTIME 08/08/20 11/09/20 Unknown History subcutaneous solution insulin syringe-needle U-100 1 mL #10 ea 08/08/20 10/16/20 Unknown History 29 gauge x 1/2 lisinopril 40 mg tablet 40 mg PO DAILY 08/08/20 11/09/20 Unknown History lorazepam 0.5 mg tablet 0.5 mg PO DAILY PRN 08/08/20 11/09/20 Unknown History metoprolol succinate 100 mg 100 mg PO DAILY 08/08/20 11/09/20 11/14/20 09:30 History tablet,extended release 24 hr quetiapine 100 mg tablet 100 mg PO BEDTIME 08/08/20 11/09/20 Unknown History lancets 33 gauge #100 ea 11/08/20 Unknown History metformin 500 mg tablet,extended 1,000 mg PO DAILY 11/08/20 11/09/20 Unknown History release 24 hr pen needle, diabetic 32 gauge x #50 ea 11/08/20 Unknown History /32 methadone mg PO QAM 11/12/20 11/14/20 09:30 History omeprazole 20 mg PO DAILY 11/12/20 11/12/20 Unknown History insulin aspart U-100 100 unit/mL unit SUBCUT 12/04/20 Unknown History (3 mL) subcutaneous pen Exam Airway Mallampati Class: III TM Dist: >3cm Neck ROM: Full Loose/Missing/Broken Teeth: Yes Heart: [id number] Lungs: cta b/l Assessment and Plan Assessment Anesthesia Assessment: Anesthesia Plan Discussed, PAT Visit and Chart Reviewed Final Anesthetic Review NPO: Yes ASA Class: III Final Preanesthetic Review: No Changes in Pt Med Stat, Meds/Allgs Chart Reviewed, Consent Obtained/Reviewed and Anes Risks/Benef Reviewed Patient Risk: Intermediate Procedure Risk: Low Assessment/Block/Sedation in SS: Assess/Block/Sedation-SS Anesthetic Plan Anesthetic Plan: GA and Agree w/ Assess. and Plan Disposition: Standard PACU
[2020-12-05] VITALS (11 sets, daily range): BP systolic 132–172; BP diastolic 61–78; PULSE 70–98; RESP 14–18; TEMP 35.8–36.9; O2SAT 98–100; BMI 31.9
[2020-12-05 10:48] LABS: COVID-19 Test Negative (Negative)
[2020-12-05] MEDS: Lactated Ringers 1,000 ML 100 ML IVCONT (10:58)
[2020-12-05 11:35] LABS: Anion Gap 12 (12-20); Blood Urea Nitrogen 35 mg/dL (9-16); Calcium 9.2 mg/dL (8.4-10.2); Carbon Dioxide 29 mmol/L (22-29); Chloride 101 mmol/L (96-108); Creatinine Clr Calc Pharmacy 74.8; Estimated Glomerular Filt Rate > 60; Glucose Fasting 206 mg/dL (60-99); Potassium 5.4 mmol/L (3.3-5.1); Sodium 137 mmol/L (135-145)
--- NOTE | 2020-12-05 11:43 | MHC.SHP ---
Pre-Procedural Eval Section A The patient is an INPATIENT: No Changes since office visit: Yes Patient answered all questions; No Cold of Flu in the past 2 weeks, No New Medical Problems and No Changes in Medication The History & Physical has been completed within 30 days and I have reviewed it.: No Section B Chief Complaint: s/p left debridementhio to heel with skin grafting Details of Present Illness: non-healing ulcer left heel Relevant Family History (Specify if Yes): No Relevant Social History: Other (specify) (drug use hx) Present Medications: see Short Stay Collaborative assessment Medical History: Significant History (Hypertension, hyperlipidemia, GERD, diabetes, HIV, diabetic foot ulcer) Allergies: Allergies Allergy/AdvReac Type Severity Reaction Status Date / Time trazodone [TRAZODONE] Allergy Unknown UNKNOWN Verified 12/04/20 09:37 Review of Systems Sugical H&P ROS: Negative: Constitution, Cardiovascular, Respiratory, Gastrointestinal and Genitourinary Review of Systems Comment: HIV Exam Surgical H&P Exam: Normal: HEENT, Normal: Heart, Normal: Lungs, Normal: Abdomen, Normal: Skin and Normal: Neurological and Significant Findings: Extremities (Ulcer in the heel left foot) Plan Diagnosis/Plan: Unchanged I have reviewed the history and physical and performed a pertinent physical examination on my patient. No changes have occurred unless specified.
--- NOTE | 2020-12-05 13:09 | W.PM.OPN ---
Operative Note Operative Note Date of Service: 12/05/20 Narrative: Preoperative diagnosis: Diabetic Foot ulcer left heel Postoperative diagnosis: Same Procedure: Debridement of left foot diabetic ulcer, heel, split-thickness skin graft harvested from left hip to left heel. Placement of wound VAC Surgeon: Tee Linares MD Finishing Machine Operator Automatic: none Anesthesia: General LMA Indications for procedure: 55-year-old male patient with peripheral vascular disease and diabetes with a nonhealing ulcer of the left heel [facility]. Patient has a nice granulated base for skin grafting. Operative findings: Split-thickness skin graft harvested from left hip and placed on left heel. Wound VAC applied Specimen: None Estimated blood loss: 10 mL Complications: None Procedure details: Patient was brought to the OR and placed in a supine position. After administering general anesthesia the patient's left hip was prepped with ChloraPrep and left foot was prepped with Betadine and the leg draped in a sterile fashion. A surgical time-out was called the consent confirmed. Patient received preoperative antibiotics and Venodyne boots were in place. Using a 15 blade the base of the heel was gently debrided down to viable tissue. This involved debridement of an ulcer measuring 5 x 3 cm. Debridement involved subcutaneous tissue only. Attention was then directed to the left hip. The leg was coated with mineral oil and a split-thickness skin graft measuring 0.015 inch deep and measuring 5 x 8 cm in width and length respectively was harvested from the left hip. This was then coated with a moist sponge. The graft was then meshed using a 1-1.5 mesher. This was then placed onto the wound bed your circumferentially with navdeep. Excess skin graft was excised using Metzenbaum scissors. The wound was then dressed with a sponge dressing from the wound VAC and covered with Obsite. This was then connected to a wound VAC device with 125 mm of mercury of suction continuous. Sterile dressings were then applied to the left hip including Xeroform dry gauze and ABD pads. The patient tolerated the procedure well. Sponge, instrument, needle counts reported as correct. The patient was transferred to PACU in stable condition.
[2020-12-05] MEDS: Sodium Chloride 0.45 % 1,000 ML 80 ML IVCONT (15:42)
[2020-12-05] MEDS: 0.9 % Sodium Chloride Flush 3 ML SYRINGE IVFLUSH (15:43)
[2020-12-05 16:17] LABS: Glucose, Whole Blood 135 mg/dL (60-115)
[2020-12-05 20:23] LABS: Glucose, Whole Blood 272 mg/dL (60-115)
[2020-12-05] MEDS: Insulin Lispro 100 UNIT/ML 3 ML VIAL SUBCUT (20:44)
[2020-12-05] MEDS: QUEtiapine Fumarate 100 MG TABLET PO (20:45)
--- NOTE | 2020-12-05 21:30 | CONS_ITS ---
DATE OF SERVICE: 12/05/2020 REASON FOR CONSULTATION: Medical management for underlying diabetes mellitus, HIV, hyperlipidemia, and hypertension. HISTORY OF PRESENTING ILLNESS: This is a 55-year-old gentleman with past medical history significant for diabetes mellitus, on insulin; history of HIV, on HAART treatment, was admitted to Surgery for graft placement to the left Achilles tendon healed diabetic wound. Postprocedure, the patient is awake, alert, offers no acute complaints. He denies pain. He denies nausea, vomiting, or abdominal discomfort. No diarrhea. He denies headache, lightheadedness, or dizziness. He took his methadone this morning. PAST MEDICAL HISTORY: Significant for, 1. History of diabetes mellitus, on insulin. 2. History of HIV. 3. History of hyperlipidemia. 4. History of hypertension. 5. History of osteomyelitis. 6. History of chronic diabetic heel ulcer, for which he underwent hyperbaric oxygen treatment, was followed closely by [facility]. Now, since he has significant granulation tissue, he underwent graft placement. PAST SURGICAL HISTORY: 1. Status post angiogram of left extremity. 2. Status post debridement of left foot wound. FAMILY HISTORY: Father is , had hypertension and diabetes. Mother has hypertension. SOCIAL HISTORY: The patient smokes 4 to 5 cigarettes a day. Denies alcohol abuse. 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 CVS: Denies chest pain or palpitation. RESPIRATORY: Denies any cough or sputum production. : No urinary symptoms of urgency and frequency. MUSCULOSKELETAL: Chronic numbness, left foot. Denies pain. MEDICATIONS ON ADMISSION: Aspirin 81 mg p.o. daily, vitamin D3 50 mcg daily, Trulicity 1.5 mg subcutaneously every week, Lasix 20 mg p.r.n., NovoLog 20 units subcutaneously with meals, Odefsey 1 tablet daily, hydrochlorothiazide 25 mg daily, insulin Tresiba 6 units subcutaneously daily, methadone 55 mg daily, metoprolol 100 mg daily, and Seroquel 100 mg at bedtime. ALLERGIES: HE IS ALLERGIC TO TRAZODONE, UNKNOWN REACTION. PHYSICAL EXAMINATION: GENERAL: The patient is sitting comfortably, does not appear to be in acute distress. VITAL SIGNS: Blood pressure 147/71 with a pulse of 76, temperature of 97.6, and O2 saturation 100% on room air. HEENT: Pupils equal, round, and reactive to light and accommodation. NECK: Supple. No JVD. LUNGS: Clear to auscultation bilaterally. HEART: Regular rate and rhythm. ABDOMEN: Obese, soft, and nontender. EXTREMITIES: Right lower extremity, there is no edema. Normal sensation. Left lower extremity, decreased sensation. Left heel dressing in place with wound VAC. LABORATORY DATA: Sodium 137, potassium 5.4, chloride 101, BUN of 35, creatinine of 1.2, blood sugar 135. INR of 1. Hematocrit 32.8. ASSESSMENT AND PLAN: This is a 55-year-old gentleman with past medical history significant for diabetes; human immunodeficiency virus; hyperlipidemia, on methadone, is status post left heel graft and wound VAC placement, is now being admitted under Surgery for close monitoring and treatment. 1. HIV. Asymptomatic, no fevers ,will continue HAART treatment. 2. Diabetes mellitus. Blood sugars are under good control. The patient is on multiple medications including Trulicity that is non-formulary, will be held. The patient will be continued on Tresiba equivalent Lantus at bedtime. We will hold premeal NovoLog insulin patient takes 20 units t.i.d. with meals since blood sugar is stable. We will place the patient on insulin sliding scale, and if blood sugars noted to be elevated, then the patient will be placed back on his home dose of NovoLog. 3. History of hyperlipidemia. will recommend low-fat diet. The patient is not on statins. 4. History of hypertension. The patient is on hydrochlorothiazide that will be continued. 5. Mild hyperkalemia. Since the patient is on hydrochlorothiazide, we will hold off on using Kayexalate and follow BMP at a.m. 6. Deep vein thrombosis prophylaxis. As per Surgery. Thank you for allowing us to participate in the care of this patient. We will continue to follow the patient along with you. MD SURESH Samuels/RESHMA / [id number] MTDD
[2020-12-06 03:34] VITALS: BP 140/68; PULSE 77; RESP 16; TEMP 36; O2SAT 100
[2020-12-06] MEDS: Sodium Chloride 0.45 % 1,000 ML 80 ML IVCONT (04:11)
[2020-12-06 07:07] LABS: Anion Gap 12 (12-20); Blood Urea Nitrogen 26 mg/dL (9-16); Calcium 8.6 mg/dL (8.4-10.2); Carbon Dioxide 29 mmol/L (22-29); Chloride 101 mmol/L (96-108); Creatinine Clr Calc Pharmacy 91.4; Estimated Glomerular Filt Rate > 60; Glucose Random 204 mg/dL (60-115); Potassium 4.9 mmol/L (3.3-5.1); Sodium 137 mmol/L (135-145)
[2020-12-06 07:24] VITALS: BP 164/77; PULSE 78; RESP 18; TEMP 36; O2SAT 99
--- NOTE | 2020-12-06 07:30 | P.PNGS_ITS ---
Subjective Subjective Date of Service: 12/06/20 Interval history: Patient denies foot pain or hip pain. Is reasonably comfortable at this time and denies any problems during the night. Physical Exam Vital Signs: Vital Signs: Last Vital Signs Temp 96.8 F 12/06/20 07:24 Pulse 78 12/06/20 07:24 Resp 18 12/06/20 07:24 BP 164/77 H 12/06/20 07:24 Pulse Ox 99 12/06/20 07:24 Body Mass Index 31.9 Const: General: cooperative, healthy appearing, comfortable, no acute distress, well developed, alert and awake Resp: Effort & Inspection: normal respiratory effort, no stridor and not tachypneic Auscultation: no wheezes Skin: Other: Warm, dry, no rash Extrem: Other: Wound VAC in place left heel with good seal. Minimal serous output noted. No erythema noted in foot or ankle. Left hip wound is clean, dry, and intact. Progress Note: A&P Assessment and plan (1) Diabetic foot ulcer: Problem details: Left heel ulcer Status: Acute (2) H/O skin graft: Problem details: 12/05/2020 Dr. Linares split-thickness skin graft from left hip to left heel, wound VAC placement. Status: Acute Assessment and Plan: Postop day 1 status post split-thickness skin graft to left heel from left hip. Both wounds are clean and intact. Patient has a wound VAC in place which will be kept on for today. Dressing changes anticipated for tomorrow. Patient unable to ambulate given the fresh wound and placement of wound VAC. will add heparin injection and continue compression stockings to the right leg. DC IV fluids. Appreciate Dr. Gardner' input. Fall Risk Details Current Medications: Current Medications Generic Name Dose Route Start Last Admin Trade Name Freq PRN Reason Stop Dose Admin Acetaminophen 650 mg 12/05/20 15:03 Acetaminophen 325 Mg Tablet PO Q6H PRN Pain, Mild (Pain Scale 1-3) Hydrocodone Bitart/Acetaminophen 1 tab 12/05/20 15:03 Hydrocodone Bit/Acetam 5/325 Tablet PO Q6H PRN Pain, Moderate (Pain Scale 4-6 Emtricitabine/Tenofovir Alafenamide 1 tab 12/06/20 09:00 Emtricitabine/Tenofov Alafenam Tablet PO DAILY [facility] Heparin Sodium (Porcine) 5,000 unit 05/06/21 07:30 Heparin Sodium,Porcine 5,000 Unit/Ml Vial SUBCUT Q12H [facility] Hydrochlorothiazide 25 mg 12/06/20 09:00 Hydrochlorothiazide 25 Mg Tablet PO DAILY [facility] Protocol Hydromorphone HCl 0.5 mg 12/05/20 15:03 Hydromorphone Hcl 0.5 Mg/0.5 Ml Syringe IVPUSH Q4H PRN Pain, Severe (Pain Scale 7-10) Insulin Glargine 42 unit 12/06/20 09:00 Insulin Glargine,Hum.Rec.Anlog 100 Unit/Ml 10 Ml Vial SUBCUT DAILY [facility] Insulin Human Lispro 0 unit 12/05/20 16:30 12/05/20 20:44 Insulin Lispro 100 Unit/Ml 3 Ml Vial SUBCUT 12/06/20 13:02 8 unit QIDACHS [facility] Administration Protocol Methadone HCl 60 mg 12/06/20 09:00 Methadone Hcl 1 Mg/0.1 Ml Oral.Conc PO DAILY [facility] Metoprolol Succinate 100 mg 12/06/20 09:00 Metoprolol Succinate Er 100 Mg Tab.Er.24h PO DAILY [facility] Protocol Ondansetron HCl 4 mg 12/05/20 15:03 Ondansetron Hcl 4 Mg/2 Ml Vial IVPUSH Q8H PRN Nausea and Vomiting Pharmacy Consult 1 each 12/05/20 15:03 Consult Rx Perform Med Rec MISCELLANE ONCE PRN Consult order Quetiapine Fumarate 100 mg 12/05/20 21:00 12/05/20 20:45 Quetiapine Fumarate 100 Mg Tablet PO 100 mg BEDTIME [facility] Administration Rilpivirine 25 mg 12/06/20 09:00 Rilpivirine Hcl 25 Mg Tablet PO DAILY [facility] Sodium Chloride 3 ml 12/05/20 16:00 12/06/20 07:16 0.9 % Sodium Chloride Flush 3 Ml Syringe IVFLUSH Not Given QSHIFT [facility] Time Spent With Patient Time: Total time spent is greater than 50% in coordination of care (as documented) at patient's floor/unit and/or counseling patient: Time with patient: 15 - 24 minutes
[2020-12-06 07:31] LABS: Glucose, Whole Blood 185 mg/dL (60-115)
[2020-12-06] MEDS: Rilpivirine HCL 25 MG TABLET PO (07:43)
[2020-12-06] MEDS: Heparin Sodium,Porcine 5,000 UNIT/ML VIAL 5000 UNIT SUBCUT ×2 (07:43→20:33)
[2020-12-06] MEDS: Emtricitabine/Tenofov Alafenam TABLET 1 TAB PO (07:43)
[2020-12-06] MEDS: hydroCHLOROthiazide 25 MG TABLET PO (07:43)
[2020-12-06] MEDS: Metoprolol Succinate ER 100 MG TAB.ER.24H PO (07:43)
[2020-12-06] MEDS: Insulin Glargine,Hum.rec.anlog 100 UNIT/ML 10 ML VIAL 42 UNIT SUBCUT (07:44)
[2020-12-06] MEDS: Insulin Lispro 100 UNIT/ML 3 ML VIAL SUBCUT ×2 (07:44→12:06)
[2020-12-06 08:43] LABS: Glucose, Whole Blood 197 mg/dL (60-115)
--- NOTE | 2020-12-06 09:44 | P.PNIM_ITS ---
Subjective Subjective Date of Service: 12/06/20 Interval History: Patient denies foot pain no overnight acute issues . Blood sugar 204 this morning ROS General no headache, no dizziness no fever chills. CVS no chest pain,, no palpitation. Respiratory no cough no sob. Gastrointestinal no nausea no vomiting, no abdominal pain Physical Exam Vital Signs: Vital Signs: Last Vital Signs Temp 96.8 F 12/06/20 07:24 Pulse 78 12/06/20 07:24 Resp 18 12/06/20 07:24 BP 164/77 H 12/06/20 07:24 Pulse Ox 99 12/06/20 07:24 Body Mass Index 31.9 General resting comfortably in no acute distress. Neck no JVD. CVS regular rate rhythm, Respiratory lungs clear to auscultation, no respiratory distress Gastrointestinal abdomen soft, nontender, bowel sounds audible Left heel dressing inplace with wound vac ,mild swelling left leg,rt lower ext no edema Neuro nonfocal, speech clear. Skin no rash Objective Data Current Medications Generic Name Dose Route Start Last Admin Trade Name Jorgeq PRN Reason Stop Dose Admin Acetaminophen 650 mg 12/05/20 15:03 Acetaminophen 325 Mg Tablet PO Q6H PRN Pain, Mild (Pain Scale 1-3) Hydrocodone Bitart/Acetaminophen 1 tab 12/05/20 15:03 Hydrocodone Bit/Acetam 5/325 Tablet PO Q6H PRN Pain, Moderate (Pain Scale 4-6 Emtricitabine/Tenofovir Alafenamide 1 tab 12/06/20 09:00 12/06/20 07:43 Emtricitabine/Tenofov Alafenam Tablet PO 1 tab DAILY LIBRADO Administration Heparin Sodium (Porcine) 5,000 unit 12/06/20 08:00 12/06/20 07:43 Heparin Sodium,Porcine 5,000 Unit/Ml Vial SUBCUT 5,000 unit Q12H LIBRADO Administration Hydrochlorothiazide 25 mg 12/06/20 09:00 12/06/20 07:43 Hydrochlorothiazide 25 Mg Tablet PO 25 mg DAILY LIBRADO Administration Protocol Hydromorphone HCl 0.5 mg 12/05/20 15:03 Hydromorphone Hcl 0.5 Mg/0.5 Ml Syringe IVPUSH Q4H PRN Pain, Severe (Pain Scale 7-10) Insulin Glargine 42 unit 12/06/20 09:00 12/06/20 07:44 Insulin Glargine,Hum.Rec.Anlog 100 Unit/Ml 10 Ml Vial SUBCUT 42 unit DAILY LIBRADO Administration Insulin Human Lispro 0 unit 12/05/20 16:30 12/06/20 07:44 Insulin Lispro 100 Unit/Ml 3 Ml Vial SUBCUT 12/06/20 13:02 4 unit QIDACHS LIBRADO Administration Protocol Methadone HCl 60 mg 12/06/20 09:00 12/06/20 08:26 Methadone Hcl 1 Mg/0.1 Ml Oral.Conc PO 60 mg DAILY LIBRADO Administration Metoprolol Succinate 100 mg 12/06/20 09:00 12/06/20 07:43 Metoprolol Succinate Er 100 Mg Tab.Er.24h PO 100 mg DAILY LIBRADO Administration Protocol Ondansetron HCl 4 mg 12/05/20 15:03 Ondansetron Hcl 4 Mg/2 Ml Vial IVPUSH Q8H PRN Nausea and Vomiting Pharmacy Consult 1 each 12/05/20 15:03 Consult Rx Perform Med Rec MISCELLANE ONCE PRN Consult order Quetiapine Fumarate 100 mg 12/05/20 21:00 12/05/20 20:45 Quetiapine Fumarate 100 Mg Tablet PO 100 mg BEDTIME LIBRADO Administration Rilpivirine 25 mg 12/06/20 09:00 12/06/20 07:43 Rilpivirine Hcl 25 Mg Tablet PO 25 mg DAILY LIBRADO Administration Sodium Chloride 3 ml 12/05/20 16:00 12/06/20 07:16 0.9 % Sodium Chloride Flush 3 Ml Syringe IVFLUSH Not Given QSHIFT [facility] Labs CBC & Chem 7: 12/06/20 06:05 Assessment and Plan (1) Diabetic foot ulcer: Problem details: Left heel ulcer Status: Acute (2) Hypertension: Status: Acute (3) Hyperlipidemia: Status: Acute (4) Hx of drug dependence: Problem details: heroin in past-taking methadone Status: Acute (5) HIV (human immunodeficiency virus infection): Problem details: treated,is on medication to preserve immune function-dx ~1996 Status: Acute (6) Diabetes: Problem details: type 2-taking metformin, trulicity, lantus, humalog-glucose usually mid 100's Status: Acute Assessment and Plan: 55-year-old gentleman with past medical history significant for diabetes; human immunodeficiency virus; hyperlipidemia, on methadone, is status post left heel graft and wound VAC placement, is now being admitted under Surgery for close monitoring and treatment. 1. HIV. continue HAART treatment. 2. Diabetes mellitus. Blood sugar 200 this am patient is on multiple medications at home, Trulicity is non-formulary and is held,continue Lantus in place of tresiba will resume home dose of premeal NovoLog insulin 12 units tid (home dose 20 units t.i.d.) continue diabetic diet and ISS 3. History of hyperlipidemia. cont. low-fat diet. patient is not on statins. 4. History of hypertension.bp noted to be elevated on hydrochlorothiazide and metoprolol cont. current treatment and follow bp closley 5. Mild hyperkalemia. resolved 6. Diabetic foot ulcer s/p skin graft with wound vac pod 1 being followed by surgery. 7. Deep vein thrombosis prophylaxis. on heparin.
[2020-12-06 11:33] LABS: Glucose, Whole Blood 263 mg/dL (60-115)
[2020-12-06 11:58] VITALS: BP 153/81; PULSE 71; RESP 18; TEMP 36.1; O2SAT 99
[2020-12-06] MEDS: Insulin Lispro 100 UNIT/ML 3 ML VIAL 12 UNIT SUBCUT ×2 (12:07→16:37)
[2020-12-06 15:06] VITALS: BP 156/90; PULSE 77; RESP 16; TEMP 36; O2SAT 100
--- NOTE | 2020-12-06 16:19 | HO.POSTANES ---
Post Anesthesia Evaluation Post Anesthesia Evaluation Vital Signs: Vital Signs Temp Pulse Resp BP Pulse Ox 12/06/20 15:06 96.8 F 77 16 156/90 H 100 12/06/20 11:58 97.0 F 71 18 153/81 H 99 12/06/20 07:24 96.8 F 78 18 164/77 H 99 Anesthesia: General Mental Status: Awake Pain Control: Satisfactory Nausea/Vomiting: None Hydration: Adequate Anesthesia-Related Issues: No Anes. Related Issues
[2020-12-06 16:24] LABS: Glucose, Whole Blood 136 mg/dL (60-115)
[2020-12-06] MEDS: 0.9 % Sodium Chloride Flush 3 ML SYRINGE IVFLUSH ×2 (16:38→20:33)
[2020-12-06 18:57] VITALS: BP 175/80; PULSE 75; RESP 16; TEMP 36.1; O2SAT 100
[2020-12-06 20:21] LABS: Glucose, Whole Blood 182 mg/dL (60-115)
[2020-12-06] MEDS: QUEtiapine Fumarate 100 MG TABLET PO (20:33)
[2020-12-06 23:40] VITALS: BP 148/67; PULSE 76; RESP 16; TEMP 36.2; O2SAT 100
[2020-12-07 03:56] VITALS: BP 142/65; PULSE 72; RESP 16; TEMP 36.6; O2SAT 100
--- NOTE | 2020-12-07 07:40 | PM.PNGS ---
Subjective Subjective Date of Service: 12/07/20 Interval history: No new complaints; denies significant foot or leg pain. No problems overnight. Physical Exam Vital Signs: Vital Signs: Last Vital Signs Temp 98 F 12/07/20 03:56 Pulse 72 12/07/20 03:56 Resp 16 12/07/20 03:56 BP 142/65 H 12/07/20 03:56 Pulse Ox 100 12/07/20 03:56 Body Mass Index 31.9 Const: General: cooperative, healthy appearing, comfortable and no acute distress Resp: Effort & Inspection: normal respiratory effort Skin: Other: warm, dry, no rash Extrem: Other: Wound vac in place, serous discharge noted. Graft donor site is clean and intact. Progress Note: A&P Assessment and plan (1) H/O skin graft: Problem details: 12/05/2020 Dr. Linares split-thickness skin graft from left hip to left heel, wound VAC placement. Status: Acute Assessment and Plan: Patient stable after skin graft to left heal. Plan to change the vac dressing later today. Based on dressing change results will determine how long to keep the vac in place. Dressing change materials requested. Fall Risk Details Current Medications: Current Medications Generic Name Dose Route Start Last Admin Trade Name Freq PRN Reason Stop Dose Admin Acetaminophen 650 mg 12/05/20 15:03 Acetaminophen 325 Mg Tablet PO Q6H PRN Pain, Mild (Pain Scale 1-3) Hydrocodone Bitart/Acetaminophen 1 tab 12/05/20 15:03 Hydrocodone Bit/Acetam 5/325 Tablet PO Q6H PRN Pain, Moderate (Pain Scale 4-6 Emtricitabine/Tenofovir Alafenamide 1 tab 12/06/20 09:00 12/06/20 07:43 Emtricitabine/Tenofov Alafenam Tablet PO 1 tab DAILY LIBRADO Administration Heparin Sodium (Porcine) 5,000 unit 12/06/20 08:00 12/06/20 20:33 Heparin Sodium,Porcine 5,000 Unit/Ml Vial SUBCUT 5,000 unit Q12H LIBRADO Administration Hydrochlorothiazide 25 mg 12/06/20 09:00 12/06/20 07:43 Hydrochlorothiazide 25 Mg Tablet PO 25 mg DAILY LIBRADO Administration Protocol Hydromorphone HCl 0.5 mg 12/05/20 15:03 Hydromorphone Hcl 0.5 Mg/0.5 Ml Syringe IVPUSH Q4H PRN Pain, Severe (Pain Scale 7-10) Insulin Glargine 42 unit 12/06/20 09:00 12/06/20 07:44 Insulin Glargine,Hum.Rec.Anlog 100 Unit/Ml 10 Ml Vial SUBCUT 42 unit DAILY LIBRADO Administration Insulin Human Lispro 12 unit 12/06/20 11:30 12/06/20 16:37 Insulin Lispro 100 Unit/Ml 3 Ml Vial SUBCUT 12 unit TIDAC LIBRADO Administration Methadone HCl 60 mg 12/06/20 09:00 12/06/20 08:26 Methadone Hcl 1 Mg/0.1 Ml Oral.Conc PO 60 mg DAILY LIBRADO Administration Metoprolol Succinate 100 mg 12/06/20 09:00 12/06/20 07:43 Metoprolol Succinate Er 100 Mg Tab.Er.24h PO 100 mg DAILY LIBRADO Administration Protocol Ondansetron HCl 4 mg 12/05/20 15:03 Ondansetron Hcl 4 Mg/2 Ml Vial IVPUSH Q8H PRN Nausea and Vomiting Pharmacy Consult 1 each 12/05/20 15:03 Consult Rx Perform Med Rec MISCELLANE ONCE PRN Consult order Quetiapine Fumarate 100 mg 12/05/20 21:00 12/06/20 20:33 Quetiapine Fumarate 100 Mg Tablet PO 100 mg BEDTIME LIBRADO Administration Rilpivirine 25 mg 12/06/20 09:00 12/06/20 07:43 Rilpivirine Hcl 25 Mg Tablet PO 25 mg DAILY LIBRADO Administration Sodium Chloride 3 ml 12/05/20 16:00 12/06/20 20:33 0.9 % Sodium Chloride Flush 3 Ml Syringe IVFLUSH 3 ml QSHIFT LIBRADO Administration Time Spent With Patient Time: Total time spent is greater than 50% in coordination of care (as documented) at patient's floor/unit and/or counseling patient: Time with patient: 15 - 24 minutes
[2020-12-07 07:45] VITALS: BP 158/77; PULSE 73; RESP 18; TEMP 35.8; O2SAT 100
[2020-12-07 07:51] LABS: Glucose, Whole Blood 196 mg/dL (60-115)
[2020-12-07] MEDS: Insulin Glargine,Hum.rec.anlog 100 UNIT/ML 10 ML VIAL 42 UNIT SUBCUT (08:09)
[2020-12-07] MEDS: Emtricitabine/Tenofov Alafenam TABLET 1 TAB PO (08:09)
[2020-12-07] MEDS: hydroCHLOROthiazide 25 MG TABLET PO (08:09)
[2020-12-07] MEDS: Heparin Sodium,Porcine 5,000 UNIT/ML VIAL 5000 UNIT SUBCUT ×2 (08:09→21:51)
[2020-12-07] MEDS: Rilpivirine HCL 25 MG TABLET PO (08:09)
[2020-12-07] MEDS: Metoprolol Succinate ER 100 MG TAB.ER.24H PO (08:10)
[2020-12-07] MEDS: Insulin Lispro 100 UNIT/ML 3 ML VIAL 12 UNIT SUBCUT ×3 (08:10→16:29)
[2020-12-07] MEDS: 0.9 % Sodium Chloride Flush 3 ML SYRINGE IVFLUSH ×3 (08:11→21:52)
--- NOTE | 2020-12-07 11:07 | MHC.CM.PN ---
PATIENT LIVES WITH HIS MOTHER. HE USES A WALKER TO AMBULATE. RN VISITS THROUGH [facility] EVERY OTHER DAY. [facility] ONCE A DAY FOR APPROX. 1 HOUR. PATIENT'S SISTER TRANSPORTS WHERE NEEDED. HE IS HOPING TO RETURN HOME WITH FAMILY AT DISCHARGE. CASE MANAGEMENT TO RETURN FOR HCP COMPLETION TO ALLOW TIME FOR CONSIDERATION OF AGENT TO BE CHOSEN. IMM 5 IN CHART.
[2020-12-07 11:29] VITALS: BP 141/85; PULSE 72; RESP 18; TEMP 36.1; O2SAT 98
--- NOTE | 2020-12-07 12:50 | HO.PM.IMPN ---
Subjective Subjective Date of Service: 12/07/20 Interval History: Patient denies foot pain no overnight acute issues . Pain is controlled ROS General no headache, no dizziness no fever chills. CVS no chest pain,, no palpitation. Respiratory no cough no sob. Gastrointestinal no nausea no vomiting, no abdominal pain Physical Exam Vital Signs: Vital Signs: Last Vital Signs Temp 97.0 F 12/07/20 11:29 Pulse 72 12/07/20 11:29 Resp 18 12/07/20 11:29 BP 141/85 H 12/07/20 11:29 Pulse Ox 98 12/07/20 11:29 Body Mass Index 31.9 Const: General: cooperative, healthy appearing, comfortable, no acute distress, well developed, alert and awake Limitations: No language barrier (PT SPEAKS AND UNDERSTANDS KINYARWANDA WELL FOR ASSESSMENT. 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 Graft donor site is clean and intact. Objective Data Current Medications Generic Name Dose Route Start Last Admin Trade Name Freq PRN Reason Stop Dose Admin Acetaminophen 650 mg 12/05/20 15:03 Acetaminophen 325 Mg Tablet PO Q6H PRN Pain, Mild (Pain Scale 1-3) Hydrocodone Bitart/Acetaminophen 1 tab 12/05/20 15:03 Hydrocodone Bit/Acetam 5/325 Tablet PO Q6H PRN Pain, Moderate (Pain Scale 4-6 Emtricitabine/Tenofovir Alafenamide 1 tab 12/06/20 09:00 12/07/20 08:09 Emtricitabine/Tenofov Alafenam Tablet PO 1 tab DAILY LIBRADO Administration Heparin Sodium (Porcine) 5,000 unit 12/06/20 08:00 12/07/20 08:09 Heparin Sodium,Porcine 5,000 Unit/Ml Vial SUBCUT 5,000 unit Q12H LIBRADO Administration Hydrochlorothiazide 25 mg 12/06/20 09:00 12/07/20 08:09 Hydrochlorothiazide 25 Mg Tablet PO 25 mg DAILY LIBRADO Administration Protocol Hydromorphone HCl 0.5 mg 12/05/20 15:03 Hydromorphone Hcl 0.5 Mg/0.5 Ml Syringe IVPUSH Q4H PRN Pain, Severe (Pain Scale 7-10) Insulin Glargine 42 unit 12/06/20 09:00 12/07/20 08:09 Insulin Glargine,Hum.Rec.Anlog 100 Unit/Ml 10 Ml Vial SUBCUT 42 unit DAILY LIBRADO Administration Insulin Human Lispro 12 unit 12/06/20 11:30 12/07/20 12:10 Insulin Lispro 100 Unit/Ml 3 Ml Vial SUBCUT 12 unit TIDAC LIBRADO Administration Methadone HCl 60 mg 12/06/20 09:00 12/07/20 08:09 Methadone Hcl 1 Mg/0.1 Ml Oral.Conc PO 60 mg DAILY LIBRADO Administration Metoprolol Succinate 100 mg 12/06/20 09:00 12/07/20 08:10 Metoprolol Succinate Er 100 Mg Tab.Er.24h PO 100 mg DAILY LIBRADO Administration Protocol Ondansetron HCl 4 mg 12/05/20 15:03 Ondansetron Hcl 4 Mg/2 Ml Vial IVPUSH Q8H PRN Nausea and Vomiting Pharmacy Consult 1 each 12/05/20 15:03 Consult Rx Perform Med Rec MISCELLANE ONCE PRN Consult order Quetiapine Fumarate 100 mg 12/05/20 21:00 12/06/20 20:33 Quetiapine Fumarate 100 Mg Tablet PO 100 mg BEDTIME LIBRADO Administration Rilpivirine 25 mg 12/06/20 09:00 12/07/20 08:09 Rilpivirine Hcl 25 Mg Tablet PO 25 mg DAILY LIBRADO Administration Sodium Chloride 3 ml 12/05/20 16:00 12/07/20 08:11 0.9 % Sodium Chloride Flush 3 Ml Syringe IVFLUSH 3 ml QSHIFT LIBRADO Administration Labs CBC & Chem 7: 12/06/20 06:05 Assessment and Plan (1) Diabetic foot ulcer: Problem details: Left heel ulcer Status: Acute (2) Hypertension: Status: Acute (3) Hyperlipidemia: Status: Acute (4) Hx of drug dependence: Problem details: heroin in past-taking methadone Status: Acute (5) HIV (human immunodeficiency virus infection): Problem details: treated,is on medication to preserve immune function-dx ~1996 Status: Acute (6) Diabetes: Problem details: type 2-taking metformin, trulicity, lantus, humalog-glucose usually mid 100's Status: Acute Assessment and Plan: 55-year-old gentleman with past medical history significant for diabetes; human immunodeficiency virus; hyperlipidemia, on methadone, is status post left heel graft and wound VAC placement, is now being admitted under Surgery for close monitoring and treatment. 1. HIV. continue HAART treatment. 2. Diabetes mellitus. Blood sugar 200 this am patient is on multiple medications at home, Trulicity is non-formulary and is held,continue Lantus in place of tresiba will resume home dose of premeal NovoLog insulin 12 units tid (home dose 20 units t.i.d.) continue diabetic diet and ISS 3. History of hyperlipidemia. cont. low-fat diet. patient is not on statins. 4. History of hypertension.bp noted to be elevated on hydrochlorothiazide and metoprolol cont. current treatment and follow bp closley 5. Mild hyperkalemia. resolved 6. Diabetic foot ulcer s/p skin graft with wound vac pod 2 being followed by surgery. 7. Deep vein thrombosis prophylaxis. on heparin.
[2020-12-07 15:20] VITALS: BP 130/76; PULSE 70; RESP 15; TEMP 37.2; O2SAT 99
[2020-12-07 16:04] LABS: Glucose, Whole Blood 270 mg/dL (60-115)
[2020-12-07 16:12] LABS: Glucose, Whole Blood 171 mg/dL (60-115)
[2020-12-07 19:12] VITALS: BP 172/82; PULSE 75; RESP 17; TEMP 36.2; O2SAT 100
[2020-12-07 20:12] LABS: Glucose, Whole Blood 179 mg/dL (60-115)
[2020-12-07] MEDS: QUEtiapine Fumarate 100 MG TABLET PO (21:51)
[2020-12-07 23:50] VITALS: BP 115/75; PULSE 72; RESP 18; TEMP 36.7; O2SAT 100
[2020-12-08 04:00] VITALS: BP 133/72; PULSE 74; RESP 18; TEMP 36.5; O2SAT 98
[2020-12-08 07:30] VITALS: BP 153/69; PULSE 70; RESP 16; TEMP 36.7; O2SAT 100
[2020-12-08 07:38] LABS: Glucose, Whole Blood 163 mg/dL (60-115)
[2020-12-08] MEDS: Insulin Lispro 100 UNIT/ML 3 ML VIAL 12 UNIT SUBCUT ×3 (08:09→16:36)
[2020-12-08] MEDS: Heparin Sodium,Porcine 5,000 UNIT/ML VIAL 5000 UNIT SUBCUT ×2 (08:10→20:29)
--- NOTE | 2020-12-08 09:27 | PM.PNGS ---
Subjective Subjective Date of Service: 12/08/20 Interval history: He denies significant complaints Says he is comfortable Physical Exam Vital Signs: Vital Signs: Last Vital Signs Temp 98.0 F 12/08/20 07:30 Pulse 70 12/08/20 07:30 Resp 16 12/08/20 07:30 BP 153/69 H 12/08/20 07:30 Pulse Ox 100 12/08/20 07:30 Body Mass Index 31.9 Const: General: comfortable and no acute distress Resp: Effort & Inspection: normal respiratory effort Cardio: Rhythm: regular rhythm GI: Palpation (GI): Soft to palpation and nontender Extrem: Other: Left heel graft site on wound VAC; appears clean Donor site on the left thigh clean and dry Progress Note: A&P Assessment and plan (1) H/O skin graft: Problem details: 12/05/2020 Dr. Linares split-thickness skin graft from left hip to left heel, wound VAC placement. Status: Acute Assessment and Plan: Both donor sites and graft sites look clean Has wound VAC on heel Pain management Doing well Change of wound VAC dressing planned on Thursday Fall Risk Details Current Medications: Current Medications Generic Name Dose Route Start Last Admin Trade Name Freq PRN Reason Stop Dose Admin Acetaminophen 650 mg 12/05/20 15:03 Acetaminophen 325 Mg Tablet PO Q6H PRN Pain, Mild (Pain Scale 1-3) Hydrocodone Bitart/Acetaminophen 1 tab 12/05/20 15:03 Hydrocodone Bit/Acetam 5/325 Tablet PO Q6H PRN Pain, Moderate (Pain Scale 4-6 Emtricitabine/Tenofovir Alafenamide 1 tab 12/06/20 09:00 12/07/20 08:09 Emtricitabine/Tenofov Alafenam Tablet PO 1 tab DAILY LIBRADO Administration Heparin Sodium (Porcine) 5,000 unit 12/06/20 08:00 12/08/20 08:10 Heparin Sodium,Porcine 5,000 Unit/Ml Vial SUBCUT 5,000 unit Q12H LIBRADO Administration Hydrochlorothiazide 25 mg 12/06/20 09:00 12/07/20 08:09 Hydrochlorothiazide 25 Mg Tablet PO 25 mg DAILY LIBRADO Administration Protocol Hydromorphone HCl 0.5 mg 12/05/20 15:03 Hydromorphone Hcl 0.5 Mg/0.5 Ml Syringe IVPUSH Q4H PRN Pain, Severe (Pain Scale 7-10) Insulin Glargine 42 unit 12/06/20 09:00 12/07/20 08:09 Insulin Glargine,Hum.Rec.Anlog 100 Unit/Ml 10 Ml Vial SUBCUT 42 unit DAILY LIBRADO Administration Insulin Human Lispro 12 unit 12/06/20 11:30 12/08/20 08:09 Insulin Lispro 100 Unit/Ml 3 Ml Vial SUBCUT 12 unit TIDAC LIBRADO Administration Methadone HCl 60 mg 12/06/20 09:00 12/07/20 08:09 Methadone Hcl 1 Mg/0.1 Ml Oral.Conc PO 60 mg DAILY LIBRADO Administration Metoprolol Succinate 100 mg 12/06/20 09:00 12/07/20 08:10 Metoprolol Succinate Er 100 Mg Tab.Er.24h PO 100 mg DAILY LIBRADO Administration Protocol Ondansetron HCl 4 mg 12/05/20 15:03 Ondansetron Hcl 4 Mg/2 Ml Vial IVPUSH Q8H PRN Nausea and Vomiting Pharmacy Consult 1 each 12/05/20 15:03 Consult Rx Perform Med Rec MISCELLANE ONCE PRN Consult order Quetiapine Fumarate 100 mg 12/05/20 21:00 12/07/20 21:51 Quetiapine Fumarate 100 Mg Tablet PO 100 mg BEDTIME LIBRADO Administration Rilpivirine 25 mg 12/06/20 09:00 12/07/20 08:09 Rilpivirine Hcl 25 Mg Tablet PO 25 mg DAILY LIBRADO Administration Sodium Chloride 3 ml 12/05/20 16:00 12/07/20 21:52 0.9 % Sodium Chloride Flush 3 Ml Syringe IVFLUSH 3 ml QSHIFT LIBRADO Administration Time Spent With Patient Time: Total time spent is greater than 50% in coordination of care (as documented) at patient's floor/unit and/or counseling patient: Time with patient: less than 15 minutes
[2020-12-08 09:28] VITALS: BP 141/72; PULSE 82
[2020-12-08] MEDS: Rilpivirine HCL 25 MG TABLET PO (09:28)
[2020-12-08] MEDS: hydroCHLOROthiazide 25 MG TABLET PO (09:28)
[2020-12-08] MEDS: Metoprolol Succinate ER 100 MG TAB.ER.24H PO (09:28)
[2020-12-08] MEDS: Insulin Glargine,Hum.rec.anlog 100 UNIT/ML 10 ML VIAL 42 UNIT SUBCUT (09:29)
[2020-12-08] MEDS: Emtricitabine/Tenofov Alafenam TABLET 1 TAB PO (09:29)
[2020-12-08] MEDS: 0.9 % Sodium Chloride Flush 3 ML SYRINGE IVFLUSH ×3 (09:30→20:30)
--- NOTE | 2020-12-08 11:49 | HO.PM.IMPN ---
Subjective Subjective Date of Service: 12/08/20 Interval History: Patient sitting comfortably in bed denies pain no acute issues overnight. General no headache, no dizziness, no fever chills. CVS no chest pain, no palpitation. Respiratory no cough no sob,. Gastrointestinal no nausea no vomiting, no abdominal pain Physical Exam Vital Signs: Vital Signs: Last Vital Signs Temp 98.0 F 12/08/20 07:30 Pulse 82 12/08/20 09:28 Resp 16 12/08/20 07:30 BP 141/72 H 12/08/20 09:28 Pulse Ox 100 12/08/20 07:30 Body Mass Index 31.9 General resting comfortably in no acute distress. Neck no JVD. CVS regular rate rhythm, Respiratory lungs clear to auscultation, no respiratory distress Gastrointestinal abdomen soft, nontender, bowel sounds audible Left heel dressing inplace with wound vac , left thigh donor site incision is clean,rt lower ext no edema Neuro nonfocal, speech clear. Skin no rash Objective Data Current Medications Generic Name Dose Route Start Last Admin Trade Name Freq PRN Reason Stop Dose Admin Acetaminophen 650 mg 12/05/20 15:03 Acetaminophen 325 Mg Tablet PO Q6H PRN Pain, Mild (Pain Scale 1-3) Hydrocodone Bitart/Acetaminophen 1 tab 12/05/20 15:03 Hydrocodone Bit/Acetam 5/325 Tablet PO Q6H PRN Pain, Moderate (Pain Scale 4-6 Emtricitabine/Tenofovir Alafenamide 1 tab 12/06/20 09:00 12/08/20 09:29 Emtricitabine/Tenofov Alafenam Tablet PO 1 tab DAILY LIBRADO Administration Heparin Sodium (Porcine) 5,000 unit 12/06/20 08:00 12/08/20 08:10 Heparin Sodium,Porcine 5,000 Unit/Ml Vial SUBCUT 5,000 unit Q12H LIBRADO Administration Hydrochlorothiazide 25 mg 12/06/20 09:00 12/08/20 09:28 Hydrochlorothiazide 25 Mg Tablet PO 25 mg DAILY LIBRADO Administration Protocol Hydromorphone HCl 0.5 mg 12/05/20 15:03 Hydromorphone Hcl 0.5 Mg/0.5 Ml Syringe IVPUSH Q4H PRN Pain, Severe (Pain Scale 7-10) Insulin Glargine 42 unit 12/06/20 09:00 12/08/20 09:29 Insulin Glargine,Hum.Rec.Anlog 100 Unit/Ml 10 Ml Vial SUBCUT 42 unit DAILY LIBRADO Administration Insulin Human Lispro 12 unit 12/06/20 11:30 12/08/20 11:46 Insulin Lispro 100 Unit/Ml 3 Ml Vial SUBCUT 12 unit TIDAC LIBRADO Administration Methadone HCl 60 mg 12/06/20 09:00 12/08/20 09:29 Methadone Hcl 1 Mg/0.1 Ml Oral.Conc PO 60 mg DAILY LIBRADO Administration Metoprolol Succinate 100 mg 12/06/20 09:00 12/08/20 09:28 Metoprolol Succinate Er 100 Mg Tab.Er.24h PO 100 mg DAILY LIBRADO Administration Protocol Ondansetron HCl 4 mg 12/05/20 15:03 Ondansetron Hcl 4 Mg/2 Ml Vial IVPUSH Q8H PRN Nausea and Vomiting Pharmacy Consult 1 each 12/05/20 15:03 Consult Rx Perform Med Rec MISCELLANE ONCE PRN Consult order Quetiapine Fumarate 100 mg 12/05/20 21:00 12/07/20 21:51 Quetiapine Fumarate 100 Mg Tablet PO 100 mg BEDTIME LIBRADO Administration Rilpivirine 25 mg 12/06/20 09:00 12/08/20 09:28 Rilpivirine Hcl 25 Mg Tablet PO 25 mg DAILY LIBRADO Administration Sodium Chloride 3 ml 12/05/20 16:00 12/08/20 09:30 0.9 % Sodium Chloride Flush 3 Ml Syringe IVFLUSH 3 ml QSHIFT LIBRADO Administration Labs CBC & Chem 7: 12/06/20 06:05 Assessment and Plan (1) H/O skin graft: Problem details: 12/05/2020 Dr. Linares split-thickness skin graft from left hip to left heel, wound VAC placement. Status: Acute (2) Hypertension: Status: Acute (3) Hyperlipidemia: Status: Acute (4) Hx of drug dependence: Problem details: heroin in past-taking methadone Status: Acute (5) GERD (gastroesophageal reflux disease): Status: Acute (6) Diabetes: Problem details: type 2-taking metformin, trulicity, lantus, humalog-glucose usually mid 100's Status: Acute (7) Depression: Status: Acute (8) PVD (peripheral vascular disease): Problem details: 12/07/2019 - left leg endo intervention with tibial plasty Status: Acute (9) HIV (human immunodeficiency virus infection): Problem details: treated,is on medication to preserve immune function-dx ~1996 Status: Acute Assessment and Plan: 55-year-old gentleman with past medical history significant for diabetes; human immunodeficiency virus; hyperlipidemia, on methadone, is status post left heel graft and wound VAC placement, is now being admitted under Surgery for close monitoring and treatment. 1. HIV. continue HAART treatment. 2. Diabetes mellitus. Blood sugar stable this am patient is on multiple medications at home, Trulicity is non-formulary and is held,continue Lantus in place of tresiba continue home dose of premeal NovoLog insulin 12 units tid (home dose 20 units t.i.d.) continue diabetic diet and ISS 3. History of hyperlipidemia. cont. low-fat diet. patient is not on statins. 4. History of hypertension.few high bp readings on hydrochlorothiazide and metoprolol cont. current treatment and follow bp closley 5. Mild hyperkalemia. resolved 6. Diabetic foot ulcer s/p skin graft with wound vac pod 3 being followed by surgery treatment plan as per surgery. 7. Deep vein thrombosis prophylaxis. on heparin.
[2020-12-08 12:00] VITALS: BP 153/87; PULSE 70; RESP 17; TEMP 36.5; O2SAT 100
[2020-12-08 12:17] LABS: Glucose, Whole Blood 205 mg/dL (60-115)
[2020-12-08 15:19] VITALS: BP 158/76; PULSE 70; RESP 14; TEMP 36.9; O2SAT 100
[2020-12-08 16:18] LABS: Glucose, Whole Blood 166 mg/dL (60-115)
[2020-12-08 19:30] VITALS: BP 155/78; PULSE 73; RESP 15; TEMP 36.2; O2SAT 99
[2020-12-08 20:21] LABS: Glucose, Whole Blood 201 mg/dL (60-115)
[2020-12-08] MEDS: QUEtiapine Fumarate 100 MG TABLET PO (20:29)
[2020-12-09] VITALS (7 sets, daily range): BP systolic 127–156; BP diastolic 55–77; PULSE 66–80; RESP 14–18; TEMP 35.9–36.7; O2SAT 98–100
[2020-12-09 07:33] LABS: Glucose, Whole Blood 199 mg/dL (60-115)
[2020-12-09] MEDS: Insulin Lispro 100 UNIT/ML 3 ML VIAL 12 UNIT SUBCUT ×2 (07:41→11:42)
[2020-12-09] MEDS: Heparin Sodium,Porcine 5,000 UNIT/ML VIAL 5000 UNIT SUBCUT ×2 (07:42→20:06)
[2020-12-09] MEDS: 0.9 % Sodium Chloride Flush 3 ML SYRINGE IVFLUSH ×3 (07:43→23:36)
[2020-12-09] MEDS: Insulin Glargine,Hum.rec.anlog 100 UNIT/ML 10 ML VIAL 42 UNIT SUBCUT (08:43)
[2020-12-09] MEDS: Emtricitabine/Tenofov Alafenam TABLET 1 TAB PO (08:43)
[2020-12-09] MEDS: hydroCHLOROthiazide 25 MG TABLET PO (08:43)
[2020-12-09] MEDS: Metoprolol Succinate ER 100 MG TAB.ER.24H PO (08:43)
[2020-12-09] MEDS: Rilpivirine HCL 25 MG TABLET PO (08:43)
--- NOTE | 2020-12-09 10:34 | PC.NURSE ---
Telesitter removed from room per pt request. Refusing camera at this time
--- NOTE | 2020-12-09 11:38 | PM.PNGS ---
Subjective Subjective Date of Service: 12/09/20 Interval history: no complaints says he feels well denies pain on graft site Physical Exam Vital Signs: Vital Signs: Last Vital Signs Temp 96.9 F 12/09/20 11:07 Pulse 70 12/09/20 11:07 Resp 18 12/09/20 11:07 BP 149/77 H 12/09/20 11:07 Pulse Ox 100 12/09/20 11:07 Body Mass Index 31.9 Const: General: comfortable and no acute distress Resp: Effort & Inspection: normal respiratory effort Cardio: Rate: regular rate GI: Palpation (GI): Soft to palpation and nontender Extrem: Other: graft site left heel with wound vac, clean, wound vac not leaking; donor site on left thigh clean, dry Progress Note: A&P Assessment and plan (1) H/O skin graft: Problem details: 12/05/2020 Dr. Linares split-thickness skin graft from left hip to left heel, wound VAC placement. Status: Acute Assessment and Plan: S/p skin graft both graft site and donor site clean planned for WoundVac dressing change reginald, then likely home with WOund Vac no other acute issues blood sugars ok Fall Risk Details Current Medications: Current Medications Generic Name Dose Route Start Last Admin Trade Name Freq PRN Reason Stop Dose Admin Acetaminophen 650 mg 12/05/20 15:03 Acetaminophen 325 Mg Tablet PO Q6H PRN Pain, Mild (Pain Scale 1-3) Hydrocodone Bitart/Acetaminophen 1 tab 12/05/20 15:03 Hydrocodone Bit/Acetam 5/325 Tablet PO Q6H PRN Pain, Moderate (Pain Scale 4-6 Emtricitabine/Tenofovir Alafenamide 1 tab 12/06/20 09:00 12/09/20 08:43 Emtricitabine/Tenofov Alafenam Tablet PO 1 tab DAILY LIBRADO Administration Heparin Sodium (Porcine) 5,000 unit 12/06/20 08:00 12/09/20 07:42 Heparin Sodium,Porcine 5,000 Unit/Ml Vial SUBCUT 5,000 unit Q12H LIBRADO Administration Hydrochlorothiazide 25 mg 12/06/20 09:00 12/09/20 08:43 Hydrochlorothiazide 25 Mg Tablet PO 25 mg DAILY LIBRADO Administration Protocol Hydromorphone HCl 0.5 mg 12/05/20 15:03 Hydromorphone Hcl 0.5 Mg/0.5 Ml Syringe IVPUSH Q4H PRN Pain, Severe (Pain Scale 7-10) Insulin Glargine 42 unit 12/06/20 09:00 12/09/20 08:43 Insulin Glargine,Hum.Rec.Anlog 100 Unit/Ml 10 Ml Vial SUBCUT 42 unit DAILY LIBRADO Administration Insulin Human Lispro 12 unit 12/06/20 11:30 12/09/20 07:41 Insulin Lispro 100 Unit/Ml 3 Ml Vial SUBCUT 12 unit TIDAC LIBRADO Administration Methadone HCl 60 mg 12/06/20 09:00 12/09/20 08:43 Methadone Hcl 1 Mg/0.1 Ml Oral.Conc PO 60 mg DAILY LIBRADO Administration Metoprolol Succinate 100 mg 12/06/20 09:00 12/09/20 08:43 Metoprolol Succinate Er 100 Mg Tab.Er.24h PO 100 mg DAILY LIBRADO Administration Protocol Ondansetron HCl 4 mg 12/05/20 15:03 Ondansetron Hcl 4 Mg/2 Ml Vial IVPUSH Q8H PRN Nausea and Vomiting Pharmacy Consult 1 each 12/05/20 15:03 Consult Rx Perform Med Rec MISCELLANE ONCE PRN Consult order Quetiapine Fumarate 100 mg 12/05/20 21:00 12/08/20 20:29 Quetiapine Fumarate 100 Mg Tablet PO 100 mg BEDTIME LIBRADO Administration Rilpivirine 25 mg 12/06/20 09:00 12/09/20 08:43 Rilpivirine Hcl 25 Mg Tablet PO 25 mg DAILY LIBRADO Administration Sodium Chloride 3 ml 12/05/20 16:00 12/09/20 07:43 0.9 % Sodium Chloride Flush 3 Ml Syringe IVFLUSH 3 ml QSHIFT LIBRADO Administration Time Spent With Patient Time: Total time spent is greater than 50% in coordination of care (as documented) at patient's floor/unit and/or counseling patient: Time with patient: less than 15 minutes
[2020-12-09 11:44] LABS: Glucose, Whole Blood 215 mg/dL (60-115)
--- NOTE | 2020-12-09 13:16 | HO.PM.IMPN ---
Subjective Subjective Date of Service: 12/09/20 Interval History: Patient sitting comfortably in bed, denies pain, no acute issues overnight. ROS General no headache, no dizziness, no fever chills. CVS no chest pain, no palpitation. Respiratory no cough no sob,. Gastrointestinal no nausea no vomiting, no abdominal pain Physical Exam Vital Signs: Vital Signs: Last Vital Signs Temp 96.9 F 12/09/20 11:07 Pulse 70 12/09/20 11:07 Resp 18 12/09/20 11:07 BP 149/77 H 12/09/20 11:07 Pulse Ox 100 12/09/20 11:07 Body Mass Index 31.9 General resting comfortably in no acute distress. Neck no JVD. CVS regular rate rhythm, Respiratory lungs clear to auscultation, no respiratory distress Gastrointestinal abdomen soft, nontender, bowel sounds audible Left heel dressing inplace with wound vac , left thigh donor site incision is clean,rt lower ext no edema Neuro nonfocal, speech clear. Skin no rash Objective Data Current Medications Generic Name Dose Route Start Last Admin Trade Name Freq PRN Reason Stop Dose Admin Acetaminophen 650 mg 12/05/20 15:03 Acetaminophen 325 Mg Tablet PO Q6H PRN Pain, Mild (Pain Scale 1-3) Hydrocodone Bitart/Acetaminophen 1 tab 12/05/20 15:03 Hydrocodone Bit/Acetam 5/325 Tablet PO Q6H PRN Pain, Moderate (Pain Scale 4-6 Emtricitabine/Tenofovir Alafenamide 1 tab 12/06/20 09:00 12/09/20 08:43 Emtricitabine/Tenofov Alafenam Tablet PO 1 tab DAILY LIBRADO Administration Heparin Sodium (Porcine) 5,000 unit 12/06/20 08:00 12/09/20 07:42 Heparin Sodium,Porcine 5,000 Unit/Ml Vial SUBCUT 5,000 unit Q12H LIBRADO Administration Hydrochlorothiazide 25 mg 12/06/20 09:00 12/09/20 08:43 Hydrochlorothiazide 25 Mg Tablet PO 25 mg DAILY LIBRADO Administration Protocol Hydromorphone HCl 0.5 mg 12/05/20 15:03 Hydromorphone Hcl 0.5 Mg/0.5 Ml Syringe IVPUSH Q4H PRN Pain, Severe (Pain Scale 7-10) Insulin Glargine 42 unit 12/06/20 09:00 12/09/20 08:43 Insulin Glargine,Hum.Rec.Anlog 100 Unit/Ml 10 Ml Vial SUBCUT 42 unit DAILY LIBRADO Administration Insulin Human Lispro 12 unit 12/06/20 11:30 12/09/20 11:42 Insulin Lispro 100 Unit/Ml 3 Ml Vial SUBCUT 12 unit TIDAC LIBRADO Administration Methadone HCl 60 mg 12/06/20 09:00 12/09/20 08:43 Methadone Hcl 1 Mg/0.1 Ml Oral.Conc PO 60 mg DAILY LIBRADO Administration Metoprolol Succinate 100 mg 12/06/20 09:00 12/09/20 08:43 Metoprolol Succinate Er 100 Mg Tab.Er.24h PO 100 mg DAILY LIBRADO Administration Protocol Ondansetron HCl 4 mg 12/05/20 15:03 Ondansetron Hcl 4 Mg/2 Ml Vial IVPUSH Q8H PRN Nausea and Vomiting Pharmacy Consult 1 each 12/05/20 15:03 Consult Rx Perform Med Rec MISCELLANE ONCE PRN Consult order Quetiapine Fumarate 100 mg 12/05/20 21:00 12/08/20 20:29 Quetiapine Fumarate 100 Mg Tablet PO 100 mg BEDTIME LIBRADO Administration Rilpivirine 25 mg 12/06/20 09:00 12/09/20 08:43 Rilpivirine Hcl 25 Mg Tablet PO 25 mg DAILY LIBRADO Administration Sodium Chloride 3 ml 12/05/20 16:00 12/09/20 07:43 0.9 % Sodium Chloride Flush 3 Ml Syringe IVFLUSH 3 ml QSHIFT LIBRADO Administration Labs CBC & Chem 7: 12/06/20 06:05 Assessment and Plan (1) Diabetic foot ulcer: Problem details: Left heel ulcer Status: Acute (2) H/O skin graft: Problem details: 12/05/2020 Dr. Linares split-thickness skin graft from left hip to left heel, wound VAC placement. Status: Acute (3) Hypertension: Status: Acute (4) Hyperlipidemia: Status: Acute (5) Hx of drug dependence: Problem details: heroin in past-taking methadone Status: Acute (6) HIV (human immunodeficiency virus infection): Problem details: treated,is on medication to preserve immune function-dx ~1996 Status: Acute (7) Diabetes: Problem details: type 2-taking metformin, trulicity, lantus, humalog-glucose usually mid 100's Status: Acute Assessment and Plan: 55-year-old gentleman with past medical history significant for diabetes; human immunodeficiency virus; hyperlipidemia, on methadone, is status post left heel graft and wound VAC placement, is now being admitted under Surgery for close monitoring and treatment. 1. HIV. continue HAART treatment. 2. Diabetes mellitus. Blood sugar elevated, on multiple medications at home, Trulicity is non-formulary and is held,continue Lantus in place of tresiba continue home dose of premeal NovoLog insulin 16 units tid (home dose 20 units t.i.d.) continue diabetic diet and ISS 3. History of hyperlipidemia. cont. low-fat diet. patient is not on statins. 4. History of hypertension.few high bp readings on hydrochlorothiazide and metoprolol cont. current treatment and follow bp closley 5. Mild hyperkalemia. resolved 6. Diabetic foot ulcer s/p skin graft with wound vac pod 4, being followed by surgery will have dressing change at a.m. ,further treatment plan as per surgery. 7. Deep vein thrombosis prophylaxis. on heparin.
[2020-12-09] MEDS: Insulin Lispro 100 UNIT/ML 3 ML VIAL 16 UNIT SUBCUT (16:58)
[2020-12-09 17:06] LABS: Glucose, Whole Blood 177 mg/dL (60-115)
[2020-12-09] MEDS: QUEtiapine Fumarate 100 MG TABLET PO (20:06)
[2020-12-09 20:30] LABS: Glucose, Whole Blood 206 mg/dL (60-115)
[2020-12-10 04:00] VITALS: BP 140/61; PULSE 72; RESP 14; TEMP 36.6; O2SAT 100
[2020-12-10 07:30] VITALS: BP 145/63; PULSE 70; RESP 16; TEMP 36.4; O2SAT 99
[2020-12-10 07:38] LABS: Glucose, Whole Blood 210 mg/dL (60-115)
[2020-12-10] MEDS: Insulin Glargine,Hum.rec.anlog 100 UNIT/ML 10 ML VIAL 42 UNIT SUBCUT (07:59)
[2020-12-10] MEDS: Insulin Lispro 100 UNIT/ML 3 ML VIAL 16 UNIT SUBCUT (08:00)
[2020-12-10] MEDS: Rilpivirine HCL 25 MG TABLET PO (08:01)
[2020-12-10] MEDS: Emtricitabine/Tenofov Alafenam TABLET 1 TAB PO (08:01)
[2020-12-10] MEDS: 0.9 % Sodium Chloride Flush 3 ML SYRINGE IVFLUSH (08:02)
[2020-12-10] MEDS: Metoprolol Succinate ER 100 MG TAB.ER.24H PO (08:02)
[2020-12-10] MEDS: hydroCHLOROthiazide 25 MG TABLET PO (08:02)
[2020-12-10] MEDS: Heparin Sodium,Porcine 5,000 UNIT/ML VIAL 5000 UNIT SUBCUT (08:02)
--- NOTE | 2020-12-10 09:40 | MHC.CM.PN ---
Addendum entered by Stephanie Mallory 12/10/20 13:56: [place] WITH MARIO ALBERTO FROM [facility] [employer] APPROVED [facility] WOUND VAC , IT WILL BE DELIVERED BEFORE 4 PM TODAY AND NURSING TO REATTACH THE HOME [facility] WOUND VAC ON . PATIENT WILL THEN BE ABLE TO BE DISCHARGED HOME. THE [facility] WILL BE OUT ON 12/12/20 Original Note: nurse direct care specialist note electronic medical record reviewed. case discussed with staff nurse and vamsi DALTONER TEXT WITH SURGEON . WOUND VAC DRESSING TO BE CHANGED TOday,, and reapplied. confirmed [facility] wound vac,confirmed with nusrat rivera [employer] insurance [facility] is within contracts. iniation of [facility] wound vac paper work started and need s to be completed by surgeon, i will then fax it to [facility] and request that they deliver the wound vac and all related supplies to [place] [phone] discharge plan home where he lives with his Mother [facility]FT AND WOUND ASSESSMENT AND DRESSING CHANGES PER DISCHARGE INSTRUCTIONS, ASSESSMENT OF PAIN MEDICATION AND MEDICATION RECONCILIATION
[2020-12-10 11:18] VITALS: BP 118/59; PULSE 71; RESP 16; TEMP 36.2; O2SAT 98
[2020-12-10 11:30] LABS: Glucose, Whole Blood 321 mg/dL (60-115)
[2020-12-10] MEDS: Insulin Lispro 100 UNIT/ML 3 ML VIAL 18 UNIT SUBCUT (12:05)
--- NOTE | 2020-12-10 13:43 | HO.PM.IMPN ---
Subjective Subjective Date of Service: 12/10/20 Interval History: Has some pain at skin graft donor site; otherwise no complaints States HIV viral load has been fully suppressed for years Physical Exam Vital Signs: Vital Signs: Last Vital Signs Temp 97.2 F 12/10/20 11:18 Pulse 71 12/10/20 11:18 Resp 16 12/10/20 11:18 BP 118/59 L 12/10/20 11:18 Pulse Ox 98 12/10/20 11:18 Body Mass Index 31.9 Gen- NAD Lungs- CTAB CV- RRR Abd- soft/NT Ext- no edema Skin- L heel with VAC dressing, L thigh donor site clean Neuro- no focal sounds Objective Data Current Medications Generic Name Dose Route Start Last Admin Trade Name Freq PRN Reason Stop Dose Admin Acetaminophen 650 mg 12/05/20 15:03 Acetaminophen 325 Mg Tablet PO Q6H PRN Pain, Mild (Pain Scale 1-3) Hydrocodone Bitart/Acetaminophen 1 tab 12/05/20 15:03 Hydrocodone Bit/Acetam 5/325 Tablet PO Q6H PRN Pain, Moderate (Pain Scale 4-6 Emtricitabine/Tenofovir Alafenamide 1 tab 12/06/20 09:00 12/10/20 08:01 Emtricitabine/Tenofov Alafenam Tablet PO 1 tab DAILY LIBRADO Administration Heparin Sodium (Porcine) 5,000 unit 12/06/20 08:00 12/10/20 08:02 Heparin Sodium,Porcine 5,000 Unit/Ml Vial SUBCUT 5,000 unit Q12H LIBRADO Administration Hydrochlorothiazide 25 mg 12/06/20 09:00 12/10/20 08:02 Hydrochlorothiazide 25 Mg Tablet PO 25 mg DAILY LIBRADO Administration Protocol Hydromorphone HCl 0.5 mg 12/05/20 15:03 Hydromorphone Hcl 0.5 Mg/0.5 Ml Syringe IVPUSH Q4H PRN Pain, Severe (Pain Scale 7-10) Insulin Glargine 45 unit 12/10/20 09:00 12/10/20 10:02 Insulin Glargine,Hum.Rec.Anlog 100 Unit/Ml 10 Ml Vial SUBCUT Not Given DAILY [facility] Insulin Human Lispro 18 unit 12/10/20 11:30 12/10/20 12:05 Insulin Lispro 100 Unit/Ml 3 Ml Vial SUBCUT 18 unit TIDAC [facility] Administration Methadone HCl 60 mg 12/06/20 09:00 12/10/20 07:59 Methadone Hcl 1 Mg/0.1 Ml Oral.Conc PO 60 mg DAILY LIBRADO Administration Metoprolol Succinate 100 mg 12/06/20 09:00 12/10/20 08:02 Metoprolol Succinate Er 100 Mg Tab.Er.24h PO 100 mg DAILY LIBRADO Administration Protocol Ondansetron HCl 4 mg 12/05/20 15:03 Ondansetron Hcl 4 Mg/2 Ml Vial IVPUSH Q8H PRN Nausea and Vomiting Pharmacy Consult 1 each 12/05/20 15:03 Consult Rx Perform Med Rec MISCELLANE ONCE PRN Consult order Quetiapine Fumarate 100 mg 12/05/20 21:00 12/09/20 20:06 Quetiapine Fumarate 100 Mg Tablet PO 100 mg BEDTIME LIBRADO Administration Rilpivirine 25 mg 12/06/20 09:00 12/10/20 08:01 Rilpivirine Hcl 25 Mg Tablet PO 25 mg DAILY LIBRADO Administration Sodium Chloride 3 ml 12/05/20 16:00 12/10/20 08:02 0.9 % Sodium Chloride Flush 3 Ml Syringe IVFLUSH 3 ml QSHIFT LIBRADO Administration Labs CBC & Chem 7: 12/06/20 06:05 Labs: Laboratory Results - last 24 hr 12/09/20 12/09/20 12/10/20 16:57 20:21 07:28 POC Glucose 177 H 206 H 210 H 12/10/20 11:19 POC Glucose 321 H Assessment and Plan (1) Diabetic foot ulcer: Problem details: Left heel ulcer Status: Acute (2) H/O skin graft: Problem details: 12/05/2020 Dr. Linares split-thickness skin graft from left hip to left heel, wound VAC placement. Status: Acute (3) Hypertension: Status: Acute (4) Hyperlipidemia: Status: Acute (5) Hx of drug dependence: Problem details: heroin in past-taking methadone Status: Acute (6) HIV (human immunodeficiency virus infection): Problem details: treated,is on medication to preserve immune function-dx ~1996 Status: Acute (7) Diabetes: Problem details: type 2-taking metformin, trulicity, lantus, humalog-glucose usually mid 100's Status: Acute Assessment and Plan: hospital d#6 55yo M with DM2, HTN, opioid use disorder on methadone 55-year-old gentleman with past medical history significant for diabetes; human immunodeficiency virus; hyperlipidemia, on methadone POD #5 debridement of left heel diabetic ulcer with placement of split-thickness skin graft harvested from left hip and wound VAC medicine consultation for management of comorbid conditions # HIV/AIDS - CD4 low but pVL has been suppressed long enough so that PCP prophylaxis is not indicated; updated viral load ordered; continue Odefsey [FTC/TAF + RPV] # DM2 - continue basal/bolus insulin [on Tresiba, Novolog, and Trulicity at home] # HTN - continue HCTZ + metoprolol # hyperK - mild, resolved # opioid use disorder - continue methadone # DFU - postop management per Surgery # VTE ppx - UFH
[2020-12-10 16:00] VITALS: BP 152/79; PULSE 72; RESP 16; TEMP 36.3; O2SAT 100
[2020-12-10 16:23] LABS: Glucose, Whole Blood 192 mg/dL (60-115)
--- NOTE | 2020-12-10 17:58 | P.DS_ITS ---
DS: Providers Provider Date of Service: 12/14/20 Date of admission: 12/05/20 10:40 Primary care physician: Suzie Estrada NP Consults: 12/05/20 15:03 Consult to Hospitalist Routine Consulting Provider: Hospitalist Reason For Exam: Diabetic foot ulcer, med management Attending physician on discharge: Tee Linares DS: Diagnosis Discharge Diagnosis (1) Diabetic foot ulcer: Status: Acute Problem details: Left heel ulcer (2) H/O skin graft: Status: Acute Problem details: 12/05/2020 Dr. Linares split-thickness skin graft from left hip to left heel, wound VAC placement. (3) Hypertension: Status: Acute (4) Hyperlipidemia: Status: Acute (5) Hx of drug dependence: Status: Acute Problem details: heroin in past-taking methadone (6) HIV (human immunodeficiency virus infection): Status: Acute Problem details: treated,is on medication to preserve immune function-dx ~1996 (7) Diabetes: Status: Acute Problem details: type 2-taking metformin, trulicity, lantus, humalog-glucose usually mid ' DS: Medications Discharge Medications Home Medications: Home Medications Medication Instructions Recorded Confirmed ammonium lactate 12 % topical cream 1 appl TOPICAL BID 08/08/20 12/05/20 aspirin 81 mg tablet,delayed 81 mg PO DAILY 08/08/20 12/05/20 release blood sugar diagnostic #10 ea 08/08/20 10/16/20 cholecalciferol (vitamin D3) 50 50 mcg PO DAILY 08/08/20 12/05/20 mcg (2,000 unit) tablet dulaglutide 1.5 mg/0.5 mL 1.5 mg SUBCUT QWEEK 08/08/20 12/05/20 subcutaneous pen injector furosemide 20 mg tablet 20 mg PO DAILY PRN 08/08/20 12/05/20 hydrochlorothiazide 25 mg tablet 25 mg PO DAILY 08/08/20 12/05/20 insulin syringe-needle U-100 1 mL #10 ea 08/08/20 10/16/20 29 gauge x 1/2 metoprolol succinate 100 mg 100 mg PO DAILY 08/08/20 12/05/20 tablet,extended release 24 hr quetiapine 100 mg tablet 100 mg PO BEDTIME 08/08/20 12/05/20 lancets 33 gauge #100 ea 11/08/20 metformin 500 mg tablet,extended 1,000 mg PO DAILY 11/08/20 12/05/20 release 24 hr pen needle, diabetic 32 gauge x #50 ea 11/08/20 methadone 55 mg PO DAILY 11/12/20 12/05/20 Odefsey 1 tab PO DAILY 12/05/20 12/05/20 Tresiba FlexTouch U-100 60 unit SUBCUT DAILY 12/05/20 12/05/20 insulin aspart U-100 [Novolog 20 unit SUBCUT TIDWM 12/05/20 12/05/20 Flexpen U-100 Insulin] DS: Summary Hospital Course Hospital Course: 55-year-old male patient with history of diabetes mellitus and peripheral vascular disease developed an ulcer in the posterior left heel. He underwent wound care at [facility] and was able to completely granulated wound however the wound has completely healed after a prolonged treatment. He presents for split-thickness skin graft placement from the left hip to be applied to the right heel ulcer. He was subsequently taken to the OR on 12/05/2020 for placement of the split-thickness skin graft to the left heel. He tolerated this procedure well. A wound VAC was applied to the graft postoperatively to expedite wound healing. The wound VAC dressing was were changed approximately 2 days later with good wound adherence. He remained hospitalized for the next 3 days with nonweightbearing with a wound VAC dressing in place. On 12/10/2020 the dressing was once again changed and the graft found to be well adhered to the granulated base. He was subsequently discharged home with a wound VAC in place. He will follow-up with wound care for further management and should follow up my office in approximately 2 weeks. He should avoid prolonged walking and standing. Nonweightbearing status was recommended. Time Spent with Patient Time attestation: Total time spent providing and/or coordinating discharge services: Discharge coordination time: Less than 30 minutes Physical Exam Vital Signs: Vital Signs: Last Vital Signs Temp 97.3 F 12/10/20 16:00 Pulse 72 12/10/20 16:00 Resp 16 12/10/20 16:00 BP 152/79 H 12/10/20 16:00 Pulse Ox 100 12/10/20 16:00 Body Mass Index 31.9 Const: General: cooperative, comfortable and no acute distress Neck: Neck: Yes normal visual inspection Resp: Effort & Inspection: normal respiratory effort GI: Inspection: Yes normal to inspection Skin: General skin exam: no rashes or lesions noted Extrem: Other: Dressings changed as noted above DS: Data Data Completed and Pending Labs on day of discharge: Laboratory Results - last 24 hr 12/09/20 12/10/20 12/10/20 20:21 07:28 11:19 POC Glucose 206 H 210 H 321 H 12/10/20 16:17 POC Glucose 192 H Discharge Plan Discharge Patient Disposition: Home Health Service Discharge Diagnosis: Left heel ulcer s/p Split thickness skin graft Referrals: [facility] [Other] - 1 Day ([facility] would vac dresing chnages per discharge instructions, and assessment also assessment for l skin graft , medication reconcilation, diagnosis sighn symptom management, pain management assessment they will be out the day after you are discharged and then per discharge inatructions ) [facility] [Other] - 1 Day ([facility] WOUND VAC AND ALL RELATED SUPPLIES TO BE DELIVERED TO HOSPITAL) [facility] [Other] - 1 Week (THEY WILL CALL YOU WHEN YOU GO HOME TO SCHEULE YOUR NEXT APPT) Tee Linares MD [Physician] - 2 Weeks Suzie Main NP [Primary Care Provider] - 1 Week Edel Hunter MD [Physician] - 1 Week Discharge Medications: Continued methadone 10 mg/mL Concentrate 55 mg PO DAILY RF: 0 insulin aspart U-100 [Novolog Flexpen U-100 Insulin] 100 unit/mL (3 mL) insulin pen 20 unit subcut TIDWM RF: 0 Tresiba FlexTouch U-100 100 unit/mL (3 mL) insulin pen 60 unit subcut DAILY RF: 0 Odefsey 200-25-25 mg tablet 1 tab PO DAILY RF: 0 hydrochlorothiazide 25 mg tablet 25 mg PO DAILY RF: 0 metoprolol succinate 100 mg tablet extended release 24 hr 100 mg PO DAILY RF: 0 quetiapine 100 mg tablet 100 mg PO BEDTIME RF: 0 (DME) blood sugar diagnostic Strip See Rx Instructions ea Not Applicable .MEDSUPPLY Qty: 10 RF: 0 aspirin 81 mg tablet,delayed release (DR/EC) 81 mg PO DAILY RF: 0 ammonium lactate 12 % cream 1 appl topical BID RF: 0 furosemide 20 mg tablet 20 mg PO DAILY PRN (Reason: swelling) RF: 0 (DME) insulin syringe-needle U-100 1 mL 29 gauge x 1/2 syringe See Rx Instructions ea .ROUTE TID Qty: 10 RF: 0 cholecalciferol (vitamin D3) 50 mcg (2,000 unit) tablet 50 mcg PO DAILY RF: 0 dulaglutide 1.5 mg/0.5 mL pen injector 1.5 mg subcut QWEEK RF: 0 Discharge Orders: Discharge Order (Routine); Ordered 12/10/20 Ordered By: Tee Linares Diet: diabetic diet Activity on Discharge: Walk with crutches Stand Alone Forms: Patient Portal Discharge page Care Plan Goals: Well healed skin graft to left heel Health Concerns: Diabetic foot ulcer left heel Plan of Treatment: STSG to left heel Assessment: Diabtic foot ulcer left heel Discharge Date/Time: 12/10/20 16:40
[2020-12-13 12:57] LABS: HIV RNA PCR Qn Copies <20 NOT DETECTED copies/mL (NOT DETECTED); HIV RNA PCR Qn Log Copies <1.30 NOT DETECTED (NOT DETECTED)
== END 2020-12-10 16:40 | disposition home health service (06) | DRG 623 ==
LOC: HO.SSSA 13:32 → HO.S3 13:42
PROVIDERS: Family Medicine; Nurse Practitioner; Admitting Provider Surgery; PCP Registered Nurse; Visit Provider Surgery
PROC: 0HRNX74 Replacement of Left Foot Skin with Autologous Tissue Substitute, Partial Thickness, External Approach (ICD-10-PCS; principal; 2020-12-05 11:40)
DX: E11.621 Type 2 diabetes mellitus with foot ulcer (principal); F11.20 Opioid dependence, uncomplicated; L97.422 Non-pressure chronic ulcer of left heel and midfoot with fat layer exposed; E87.5 Hyperkalemia; K21.9 Gastro-esophageal reflux disease without esophagitis; F17.210 Nicotine dependence, cigarettes, uncomplicated; Z21 Asymptomatic human immunodeficiency virus [HIV] infection status; E78.5 Hyperlipidemia, unspecified; I10 Essential (primary) hypertension; Z79.4 Long term (current) use of insulin; Z79.82 Long term (current) use of aspirin; Z79.899 Other long term (current) drug therapy
CPT/HCPCS: 36415; 80048; 82947; 87536; 87635; 99024; 99212; J0690; J2250; J2370; J3010

== ENCOUNTER 2021-03-13 14:20 | Inpatient (IN) | payer OTHER, SELFPAY ==
--- NOTE | ~2021-03-13 | US_ITS ---
EXAMINATION: US VENOUS ULTRASOUND WITH DOPPLER LOWER EXTREMITY, RIGHT CLINICAL INFORMATION: Ultrasound venous duplex right lower leg COMPARISON: None TECHNIQUE: Ultrasound of the deep veins is performed from the hip to the calf with compression sonography and color and pulse Doppler assessment. Spectral analysis with color-flow imaging is performed. FINDINGS: There is normal venous compression and respiratory variation and augmented flow. The visualized common femoral vein, superficial femoral vein, profunda femoral vein, popliteal vein, and the trifurcation region shows no evidence of deep venous thrombosis. There is no significant popliteal fossa cyst. If the patient's symptoms persist, followup ultrasound in 5 days 7 days might be of value to exclude proximal propagation from a non-visualized calf vein. US/US venous duplex LE RT IMPRESSION: No DVT demonstrated in the right lower extremity.
--- NOTE | ~2021-03-13 | MR_ITS ---
EXAMINATION: MRI FOOT WITHOUT AND WITH CONTRAST, RIGHT CLINICAL INFORMATION: Right 5th toe wound. Evaluate for osteomyelitis. COMPARISON: Right toe radiographs dated 03/13/2021. TECHNIQUE: Multisequence MR imaging of the right foot performed before and after the IV administration of 10 mL Gadavist contrast on a high-field strength scanner. FINDINGS: Evaluation limited secondary to patient motion. BONE: Redemonstration of an oblique fracture through the base of the 5th proximal phalanx. Prominent marrow edema throughout the 5th proximal phalanx which demonstrates postcontrast enhancement. No additional abnormal marrow signal. MUSCLES/TENDONS: The visualized flexor and extensor tendons are intact. Edema within the intrinsic musculature of the foot, which can be seen in diabetic patients. LIGAMENTS: The Lisfranc ligament is intact. SOFT TISSUES: Soft tissue edema and enhancement of the 5th toe without organized fluid collection or abscess formation. Dorsal subcutaneous edema. MR/MR foot RT wo/w con IMPRESSION: 1. Oblique fracture through the base of the 5th proximal phalanx. Prominent associated marrow edema throughout the 5th proximal phalanx with postcontrast enhancement. Findings may be related to the fracture. A superimposed infectious process cannot be excluded in the appropriate clinical setting. 2. Soft tissue edema and enhancement of the 5th toe without organized fluid collection or abscess formation. Findings may be reactive to the adjacent fracture or indicate cellulitis. 3. Edema within the intrinsic musculature of the foot, which can be seen in diabetic patients. 4. Dorsal subcutaneous edema.
--- NOTE | ~2021-03-13 | US_ITS ---
EXAMINATION: US DUPLEX DOPPLER ARTERIAL LOWER EXTREMITY, BILATERAL CLINICAL INFORMATION: PVD. Ischemic change right 5th toe. COMPARISON: TECHNIQUE: Real-time ultrasound and Doppler techniques (integrating B-mode 2D vascular images, Doppler spectral analysis and color flow Doppler imaging) were utilized to interrogate the lower extremity arteries bilaterally. FINDINGS: RIGHT LOWER EXTREMITY: The right common femoral artery has a monophasic waveform with peak systolic velocity of 234 cm/s. The superficial femoral artery has a monophasic waveform with peak systolic velocity of 92 cm/s. The profunda femoral artery has a triphasic waveform with peak systolic velocity of 85 cm/s. The mid superficial femoral artery has a monophasic waveform with peak systolic velocity of 88 cm/s. The distal superficial femoral artery has a peak systolic velocity of 113 cm/s with monophasic waveform. The popliteal artery has a monophasic waveform with peak systolic velocity of 55 cm/s. The peroneal artery has a monophasic waveform with peak systolic velocity of 80 cm/s. The distal posterior tibial artery has a monophasic waveform with peak systolic velocity of 84 cm/s. LEFT LOWER EXTREMITY: The left common femoral artery has a triphasic waveform with peak systolic velocity of 286 cm/s. The proximal superficial femoral artery has a triphasic waveform with peak systolic velocity of 118 cm/s. The profunda femoral artery has a monophasic waveform with peak systolic velocity of 108 cm/s. The mid superficial femoral artery has a triphasic waveform with peak systolic velocity of 124 cm/s. The distal superficial femoral artery has a monophasic waveform with peak systolic velocity of 169 cm/s. The popliteal artery has a biphasic waveform with peak systolic velocity of 46 cm/s. The peroneal artery has a triphasic waveform with peak systolic velocity of 97 cm/s. The distal posterior tibial artery has a monophasic waveform with peak systolic velocity of 35 cm/s. US/US arterial duplex LE BI IMPRESSION: Elevated velocity within the right common femoral artery consistent with inflow stenosis such as external iliac artery disease. There are also monophasic waveforms present consistent with hemodynamically significant stenoses. Elevated left common femoral artery velocity consistent with hemodynamically significant upstream stenosis. There is also seen to be elevated velocity within the distal superficial femoral artery consistent with hemodynamically significant stenosis in that location.
--- NOTE | ~2021-03-13 | XR_ITS ---
EXAMINATION: XR TOES, RIGHT CLINICAL INFORMATION: Osteomyelitis fifth digit COMPARISON: 3 views of the fifth digit TECHNIQUE: 3 views of the right toes were obtained. FINDINGS: Soft tissue swelling is present involving the fifth toe but no bony destructive lesions are seen. XR/XR toe RT min 2V IMPRESSION: No evidence of osteomyelitis
[2021-03-13 15:29] VITALS: BP 150/75; PULSE 87; RESP 18; TEMP 37.2; O2SAT 98; BMI 31.9
[2021-03-13 16:23] LABS: MANUAL DIFF FLAG NO
[2021-03-13 16:24] LABS: Basophils Absolute Auto 0.1 X10*3/uL (0.0-0.2); Basophils Percent Auto 0.6 % (0-2); Eosinophils Absolute Auto 0.2 X10*3/uL (0.0-0.4); Eosinophils Percent Auto 1.5 % (0-4); Hematocrit 34.7 % (42-52); Hemoglobin 11.9 g/dl (14.0-18.0); Imm Gran Abs Auto 0.07 X10*3/uL (0.00-0.03); Imm Gran Pct Auto 0.5 % (0.0-0.4); Lymphocytes Absolute Auto 2.7 X10*3/uL (1.2-4.9); Lymphocytes Percent Auto 18.6 % (20-40); Mean Corpuscular HGB Conc 34.3 g/dl (31.0-36.0); Mean Corpuscular Hemoglobin 31.9 pg (27.0-33.0); Monocytes Absolute Auto 0.9 X10*3/uL (0.1-1.2); Monocytes Percent Auto 6.4 % (2-11); Neutrophils Absolute Auto 10.3 X10*3/uL (2.0-8.3); Neutrophils Percent Auto 72.4 % (45-73); Platelet Count 128 X10*3/uL (160-400); Red Blood Count 3.73 X10*6/uL (4.60-5.80); Red Cell Distribution Width 12.7 % (11.0-16.0); White Blood Count 14.3 X10*3/uL (4.8-10.8)
[2021-03-13 16:52] LABS: Anion Gap 13 (12-20); Blood Urea Nitrogen 40 mg/dL (9-16); Calcium 9.4 mg/dL (8.4-10.2); Carbon Dioxide 30 mmol/L (22-29); Chloride 98 mmol/L (96-108); Creatinine Clr Calc Pharmacy 57.6; Estimated Glomerular Filt Rate 46; Glucose Random 249 mg/dL (60-115); Potassium 5.3 mmol/L (3.3-5.1); Sodium 136 mmol/L (135-145)
--- NOTE | 2021-03-13 18:20 | PC.NURSE ---
First contact with patient. Pt is sitting in bed watching tv and eating doughnuts. Pt states he is diabetic. Wedding Cake Designer informed patient that the doughnut will make his blood sugar high because it is carbohydrates. pt stopped eating it and asked for it to be thrown away
[2021-03-13 18:44] VITALS: BP 143/73; PULSE 82; RESP 17; O2SAT 99
[2021-03-13 19:08] LABS: Lactic Acid 1.6 mmol/L (0.5-2.0)
--- NOTE | 2021-03-13 19:13 | ED_ITS ---
HPI - Skin/Abscess/Foreign Bdy General Chief complaint: Skin/Abscess/Foreign Body Stated complaint: toe injury Time Seen by Provider: 03/13/21 18:00 Source: patient Mode of arrival: ambulatory Limitations: no limitations History of Present Illness HPI narrative: Patient comes emergency room complaining of right 5th toe infection. Patient was seen today at the wound clinic for the 1st time for the toe, patient was sent over to the emergency room for further evaluation and treatment. Patient reports localized pain but it is minimal due to patient's chronic neuropathy. Patient denies fever or chills patient states he noticed that his small toe started turning black approximately 2 weeks ago Related Data Home Medications Medication Instructions Recorded Confirmed ammonium lactate 12 % topical cream 1 appl TOPICAL BID 08/08/20 12/05/20 aspirin 81 mg tablet,delayed 81 mg PO DAILY 08/08/20 12/05/20 release blood sugar diagnostic #10 08/08/20 10/16/20 cholecalciferol (vitamin D3) 50 50 mcg PO DAILY 08/08/20 12/05/20 mcg (2,000 unit) tablet dulaglutide 1.5 mg/0.5 mL 1.5 mg SUBCUT QWEEK 08/08/20 12/05/20 subcutaneous pen injector furosemide 20 mg tablet 20 mg PO DAILY PRN 08/08/20 12/05/20 hydrochlorothiazide 25 mg tablet 25 mg PO DAILY 08/08/20 12/05/20 insulin syringe-needle U-100 1 mL #10 ea 08/08/20 10/16/20 29 gauge x 1/2 metoprolol succinate 100 mg 100 mg PO DAILY 08/08/20 12/05/20 tablet,extended release 24 hr quetiapine 100 mg tablet 100 mg PO BEDTIME 08/08/20 12/05/20 lancets 33 gauge #100 ea 11/08/20 metformin 500 mg tablet,extended 1,000 mg PO DAILY 11/08/20 12/05/20 release 24 hr pen needle, diabetic 32 gauge x #50 11/08/20 methadone 10 mg/mL oral concentrate 55 mg PO DAILY 11/12/20 12/05/20 emtricitabine 200 mg-rilpivirine 1 tab PO DAILY 12/05/20 12/05/20 25 mg-tenofovir alafenam 25 mg tablet (Bryan) insulin aspart U-100 100 unit/mL 20 unit SUBCUT TIDWM 12/05/20 12/05/20 (3 mL) subcutaneous pen (Novolog Flexpen U-100 Insulin aspart) insulin degludec 100 unit/mL (3 60 unit SUBCUT DAILY 12/05/20 12/05/20 mL) subcutaneous pen (Tresiba FlexTouch U-100 insulin) Allergies Allergy/AdvReac Type Severity Reaction Status Date / Time trazodone [TRAZODONE] Allergy Unknown UNKNOWN Verified 12/04/20 09:37 Review of Systems Review of Systems: Constitutional : No Weight loss, No Fever, No Chills, No Night Sweats, No Fatigue, No Malaise ENT/Mouth : No Hearing loss, No Ear Pain, No Nasal Congestion, No Sinus Pain, No Hoarseness, No sore throat, No Rhinorrhea, No Swallowing Difficulty Eyes: No Eye Pain, No Swelling, No Redness, No Foreign Body, No Discharge, No Vision Changes Cardiovascular : No Chest Pain, No SOB, No Dyspnea on Exertion, No Orthopnea, No Edema, No Palpitations Respiratory : No Cough, No Sputum, No Wheezing, No Smoke Exposure, No Dyspnea Gastrointestinal : No Nausea, No Vomiting, No Diarrhea, No Constipation, No abdominal Pain, No Hematochezia, No Melena Genitourinary : no irregular bleeding, No Dysuria, No Urinary Frequency, No Hematuria, No Urinary Incontinence, No Urgency, No Flank Pain, No Urinary Flow Changes, No Hesitancy Musculoskeletal : No joint pain, No Myalgias, No Joint Swelling Skin : 5th toe and in foot complaining of pain moving upwards from his right calf Neuro : No Weakness, No Numbness, No Paresthesias, No Loss of Consciousness, No Dizziness, No Headache Psych : No Anxiety/Panic, No Depression, No SI/HI/AH/VH, No Social Issues, Heme/Lymph: No Bruising, No Bleeding,No Lymphadenopathy Endocrine : No Polyuria, No Polydipsia, No Temperature Intolerance [facility] Past Medical History Medical History Cirrhosis COVID-19 vaccine administered Depression Diabetes GERD (gastroesophageal reflux disease) Hepatitis History of hyperbaric oxygen therapy HIV (human immunodeficiency virus infection) Hx of drug dependence Hyperlipidemia Hypertension Osteomyelitis Surgical History H/O skin graft S/P angiogram of extremity Status post debridement Family History Family History Father Diabetes HTN (hypertension) Mother HTN (hypertension) Daughter No problems noted. Social History Social History Household Members: Family Housing: House Are you a primary special needs caregiver to a significant other at home: No Do you presently have visiting nurse or other home services: Yes Alcohol intake: never Patient Tobacco Use Status: Never used Tobacco Cigarette Packs Per Day: 0 Cigarettes Per Day: 4 Years Smoked: 40 Second Hand Smoke Exposure: No Use of substances other than those prescribed or required for medical reasons: No Substance Use Type: Former Substance User and Heroin Advance Directives: Yes Advance Directives Information Provided: Yes Advance Directives on File: No service: No Current occupational status: disabled Physical Exam Vital Signs: Vital Signs: Last Vital Signs Temp 98.8 F 03/13/21 20:00 Pulse 68 03/13/21 20:00 Resp 16 03/13/21 20:00 BP 118/85 03/13/21 20:00 Pulse Ox 97 03/13/21 20:00 Body Mass Index 31.9 Const: Other: Appearance: Alert. Oriented X3. No acute distress. Eyes: Pupils equal, round and reactive to light. ENT: Pharynx normal. Neck: Normal inspection. Neck supple. No lymph nodes noted. No crepitus CVS: Normal heart rate and rhythm. Pulses normal. Normal S1 and S2 Respiratory: No respiratory distress. Breath sounds normal. No Wheezing. No rales Abdomen: Soft and nontender. No rigidity. No distention. good BS x4 Skin: Skin warm and dry. Normal skin color. Normal skin turgor. Extremities: No lower extremity edema, with gangrene in the right 5th toe, pain to palpation, serosanguineous fluid discharge. Left heel with an unstageable ulcer, not painful, not draining Neuro: Oriented X 3. No motor deficit. No sensory deficit. Moving all extermities. No slurred speech. Course Course Course Narrative: I discussed the labs and x-ray with the patient. Patient will be admitted for IV antibiotics. Although the x-ray does not show osteomyelitis, it is likely that he will need an MRI in the morning. In the meantime patient is being treated with Zosyn and vancomycin. MDM - Skin/Abscess/Foreign Bdy Lab Data Result diagrams: 03/13/21 16:12 03/13/21 16:12 Labs: Lab Results 03/13/21 03/13/21 03/13/21 Range/Units 16:12 16:12 16:12 WBC 14.3 H (4.8-10.8) X10*3/uL RBC 3.73 L (4.60-5.80) X10*6/uL Hgb 11.9 L (14.0-18.0) g/dl Hct 34.7 L (42-52) % MCV 93.0 (80-98) fL MCH 31.9 (27.0-33.0) pg MCHC 34.3 (31.0-36.0) g/dl RDW 12.7 (11.0-16.0) % Plt Count 128 L (160-400) X10*3/uL MPV 12.0 (9.4-12.4) fL Immature Gran % (Auto) 0.5 H (0.0-0.4) % Neut % (Auto) 72.4 (45-73) % Lymph % (Auto) 18.6 L (20-40) % [place] % (Auto) 6.4 (2-11) % Eos % (Auto) 1.5 (0-4) % Baso % (Auto) 0.6 (0-2) % Lymph # (Auto) 2.7 (1.2-4.9) X10*3/uL [place] # (Auto) 0.9 (0.1-1.2) X10*3/uL Eos # (Auto) 0.2 (0.0-0.4) X10*3/uL Baso # (Auto) 0.1 (0.0-0.2) X10*3/uL Abs Immat Gran (auto) 0.07 H (0.00-0.03) X10*3/uL Absolute Neuts (auto) 10.3 H (2.0-8.3) X10*3/uL Absolute Nucleated RBC 0.000 (0.0-0.012) X10*3/uL Nucleated RBC % (auto) 0.0 (0.0-0.2) /100WBC ESR 85 H (0-15) MM/HR Sodium 136 (135-145) mmol/L Potassium 5.3 H (3.3-5.1) mmol/L Chloride 98 (96-108) mmol/L Carbon Dioxide 30 H (22-29) mmol/L Anion Gap 13 (12-20) BUN 40 H D (9-16) mg/dL Creatinine 1.57 H (0.5-1.4) mg/dL Estim Creat Clear Calc 57.6 Estimated GFR 46 Random Glucose 249 H (60-115) mg/dL Lactic Acid (0.5-2.0) mmol/L Calcium 9.4 D (8.4-10.2) mg/dL C-Reactive Protein 7.18 H (< or = 0.50) mg/dL Coronavirus (PCR) (Negative) Influenza Type A (PCR) (Negative) Influenza Type B (PCR) (Negative) RSV RNA Qual (PCR) (Negative) 03/13/21 03/13/21 Range/Units 18:37 18:39 WBC (4.8-10.8) X10*3/uL RBC (4.60-5.80) X10*6/uL Hgb (14.0-18.0) g/dl Hct (42-52) % MCV (80-98) fL MCH (27.0-33.0) pg MCHC (31.0-36.0) g/dl RDW (11.0-16.0) % Plt Count (160-400) X10*3/uL MPV (9.4-12.4) fL Immature Gran % (Auto) (0.0-0.4) % Neut % (Auto) (45-73) % Lymph % (Auto) (20-40) % [place] % (Auto) (2-11) % Eos % (Auto) (0-4) % Baso % (Auto) (0-2) % Lymph # (Auto) (1.2-4.9) X10*3/uL [place] # (Auto) (0.1-1.2) X10*3/uL Eos # (Auto) (0.0-0.4) X10*3/uL Baso # (Auto) (0.0-0.2) X10*3/uL Abs Immat Gran (auto) (0.00-0.03) X10*3/uL Absolute Neuts (auto) (2.0-8.3) X10*3/uL Absolute Nucleated RBC (0.0-0.012) X10*3/uL Nucleated RBC % (auto) (0.0-0.2) /100WBC ESR (0-15) MM/HR Sodium (135-145) mmol/L Potassium (3.3-5.1) mmol/L Chloride (96-108) mmol/L Carbon Dioxide (22-29) mmol/L Anion Gap (12-20) BUN (9-16) mg/dL Creatinine (0.5-1.4) mg/dL Estim Creat Clear Calc Estimated GFR Random Glucose (60-115) mg/dL Lactic Acid 1.6 (0.5-2.0) mmol/L Calcium (8.4-10.2) mg/dL C-Reactive Protein (< or = 0.50) mg/dL Coronavirus (PCR) NEGATIVE (Negative) Influenza Type A (PCR) NEGATIVE (Negative) Influenza Type B (PCR) NEGATIVE (Negative) RSV RNA Qual (PCR) NEGATIVE (Negative) Imaging Data Toe x-ray: Radiologist's impression: CLINICAL INFORMATION: Osteomyelitis fifth digit COMPARISON: 3 views of the fifth digit TECHNIQUE: 3 views of the right toes were obtained. FINDINGS: Soft tissue swelling is present involving the fifth toe but no bony destructive lesions are seen. XR/XR toe RT min 2V IMPRESSION: No evidence of osteomyelitis Discharge Plan Discharge Clinical Impression: Diabetic foot ulcer, Acute kidney injury Patient Disposition: Admitted As Inpatient Prescriptions: No Action methadone 10 mg/mL Concentrate 55 mg PO DAILY RF: 0 insulin aspart U-100 [Novolog Flexpen U-100 Insulin] 100 unit/mL (3 mL) insulin pen 20 unit subcut TIDWM RF: 0 Tresiba FlexTouch U-100 100 unit/mL (3 mL) insulin pen 60 unit subcut DAILY RF: 0 Odefsey 200-25-25 mg tablet 1 tab PO DAILY RF: 0 hydrochlorothiazide 25 mg tablet 25 mg PO DAILY RF: 0 metoprolol succinate 100 mg tablet extended release 24 hr 100 mg PO DAILY RF: 0 quetiapine 100 mg tablet 100 mg PO BEDTIME RF: 0 (DME) blood sugar diagnostic Strip See Rx Instructions ea Not Applicable .MEDSUPPLY Qty: 10 RF: 0 aspirin 81 mg tablet,delayed release (DR/EC) 81 mg PO DAILY RF: 0 ammonium lactate 12 % cream 1 appl topical BID RF: 0 furosemide 20 mg tablet 20 mg PO DAILY PRN (Reason: swelling) RF: 0 (DME) insulin syringe-needle U-100 1 mL 29 gauge x 1/2 syringe See Rx Instructions ea .ROUTE TID Qty: 10 RF: 0 cholecalciferol (vitamin D3) 50 mcg (2,000 unit) tablet 50 mcg PO DAILY RF: 0 dulaglutide 1.5 mg/0.5 mL pen injector 1.5 mg subcut QWEEK RF: 0
[2021-03-13 19:57] LABS: C Reactive Protein 7.18 mg/dL (< or = 0.50)
[2021-03-13 20:00] VITALS: BP 118/85; PULSE 68; RESP 16; TEMP 37.1; O2SAT 97
[2021-03-13 20:00] LABS: Influenza A PCR NEGATIVE (Negative); Influenza B PCR NEGATIVE (Negative); Resp Syncy Virus RNA Qual PCR NEGATIVE (Negative); SARS COV2 PCR INHOUSE NEGATIVE (Negative)
[2021-03-13] MEDS: 0.9 % Sodium Chloride 1,000 ML 999 ML IVCONT (20:06)
[2021-03-13] MEDS: Piperacillin Sodium/Tazobactam 3.375 GM in 0.9 % Sodium Chloride 50 ML IV (20:06)
[2021-03-13] MEDS: vancomycin HCL 1,250 MG in 0.9 % Sodium Chloride 250 ML 166.67 MG IV (20:27)
[2021-03-13 20:30] LABS: Erythrocyte Sedimentation Rate 85 MM/HR (0-15)
[2021-03-13 21:51] VITALS: BP 141/72; PULSE 80; RESP 16; TEMP 36.2; O2SAT 80
[2021-03-13 21:57] LABS: Glucose, Whole Blood 159 mg/dL (60-115)
[2021-03-13] MEDS: Docusate Sodium 100 MG CAPSULE PO (21:59)
[2021-03-13] MEDS: Lactated Ringers 1,000 ML 100 ML IVCONT (22:00)
[2021-03-13] MEDS: Heparin Sodium,Porcine 5,000 UNIT/ML VIAL 5000 UNIT SUBCUT (22:00)
[2021-03-13 23:38] VITALS: BP 159/75; PULSE 81; RESP 18; TEMP 36.2; O2SAT 98
[2021-03-13] MEDS: QUEtiapine Fumarate 100 MG TABLET PO (23:48)
[2021-03-14 03:48] VITALS: BP 160/77; PULSE 81; RESP 18; TEMP 36.2; O2SAT 100
[2021-03-14] MEDS: Piperacillin Sodium/Tazobactam 3.375 GM in 0.9 % Sodium Chloride 50 ML IV ×4 (03:55→20:40)
--- NOTE | 2021-03-14 05:50 | P.HPHOSP_ITS ---
History of Present Illness Date of Service: 03/13/21 Chief Complaint: right toe ulcer This is a 55-year-old Mohawk-speaking only male with past medical history of liver cirrhosis, diabetes, HTN, HIV, HLD, history of osteomyelitis of the left heel presents to the hospital from wound clinic for right 5th toe wound. Patient reports that the wound started about 2 weeks ago, progressively changed color to block, and over the past few days the his started noticing swelling of his toe. he has about 3-4/10 throbbing pain that is not radiating, constant, reports no drainage, denies any fever chills, does not remember any trauma to the toe, denies any chest pain, no shortness of breath, no cough, no abdominal pain nausea or vomiting, no diarrhea constipation. No urinary symptoms. He does have swelling of the right lower extremity On arrival to the ED Patient hemodynamically stable with no significant abnormal vitals Labs are significant for WBC count of 14.3, hemoglobin of 11.9, ESR of 85, potassium of 5.3, BUN of 40, creatinine of 1.57 with a baseline of 0.99 in December, X-ray of the toe shows no evidence of osteomyelitis Review of Systems Review of Systems: Yes all other systems are reviewed and are negative [facility], [facility] Medical History Cirrhosis COVID-19 vaccine administered Depression Diabetes GERD (gastroesophageal reflux disease) Hepatitis History of hyperbaric oxygen therapy HIV (human immunodeficiency virus infection) Hx of drug dependence Hyperlipidemia Hypertension Osteomyelitis Family History Father Diabetes HTN (hypertension) Mother HTN (hypertension) Daughter No problems noted. Surgical History H/O skin graft S/P angiogram of extremity Status post debridement Social History Household Members: Family Housing: House Are you a primary tire care manager to a significant other at home: No Do you presently have visiting nurse or other home services: Yes Alcohol intake: never Patient Tobacco Use Status: Current everyday Tobacco user Tobacco use type: Cigarette Cigarette Packs Per Day: 0 Cigarettes Per Day: 4 Years Smoked: 40 Smoked in Last 30 Days: Yes e-Cigarette/Vaping Use: Never Used Patient Interested in Nicotine Replacement: No Patient Given Instructions on How to Stop Smoking: Yes (pt is willing and is trying to quit) Date Education Initiated: 03/13/21 Second Hand Smoke Exposure: No Use of substances other than those prescribed or required for medical reasons: No Substance Use Type: Former Substance User and Heroin Have you been hit, kicked, punched, or otherwise hurt by someone within the past year? If so, by whom?: No Do you feel safe in your current relationship?: Yes Is there a partner from a previous relationship who is making you feel unsafe now?: No Are you made to feel afraid or neglected: No Advance Directives: Yes Advance Directives Information Provided: Yes Advance Directives on File: No Advance Directives Date on File: 03/13/21 Do you have thoughts of harming others: None Do you have a plan to hurt others: No Plan Recently lost weight without trying: No Eating poorly because of decreased appetite: No Nutrition Risks: No Nutritional Risk Poor oral hygiene: No service: No Current occupational status: disabled Meds Allergies Allergy/AdvReac Type Severity Reaction Status Date / Time trazodone [TRAZODONE] Allergy Unknown UNKNOWN Verified 12/04/20 09:37 Active Medications: Current Medications Generic Name Dose Route Start Last Admin Trade Name Freq PRN Reason Stop Dose Admin Acetaminophen 650 mg 03/13/21 20:20 Acetaminophen 325 Mg Tablet PO Q6H PRN Pain, Mild (Pain Scale 1-3) Aspirin 81 mg 03/14/21 09:00 Aspirin Enteric Coated 81 Mg Tablet.Dr PO DAILY LIBRADO Dextrose 25 gm 03/13/21 23:18 Dextrose 50 % 25 Gm/50 Ml Vial IVPUSH Q15M PRN per Hypoglycemia Standing Ord. Protocol Docusate Sodium 100 mg 03/13/21 21:00 03/13/21 21:59 Docusate Sodium 100 Mg Capsule PO 100 mg BID [facility]RADO Administration Furosemide 20 mg 03/13/21 23:17 Furosemide 20 Mg Tablet PO DAILY PRN swelling Protocol Glucose 15 gm 03/13/21 23:18 Glucose Gel 15 Gm Gel..Gram. PO Q15M PRN per Hypoglycemia Standing Ord. Protocol Heparin Sodium (Porcine) 5,000 unit 03/13/21 21:00 03/13/21 22:00 Heparin Sodium,Porcine 5,000 Unit/Ml Vial SUBCUT 5,000 unit Q12H [facility] Administration Hydrochlorothiazide 25 mg 03/14/21 09:00 Hydrochlorothiazide 25 Mg Tablet PO DAILY [facility] Protocol Piperacillin Sod/Tazobactam 50 mls @ 100 mls/hr 03/14/21 03:00 03/14/21 04:32 Sod 3.375 gm/ Sodium Chloride IV Infused Q6H [facility] Infusion Lactated Ringer's 1,000 mls @ 100 mls/hr 03/13/21 20:30 03/13/21 22:00 Lr IVCONT 100 mls/hr .Q10H [facility] Administration Vancomycin HCl 750 mg/ Sodium 265 mls @ 265 mls/hr 03/14/21 10:00 Chloride IV Q12H [facility] Insulin Human Lispro 20 unit 03/14/21 08:00 Insulin Lispro 100 Unit/Ml 3 Ml Vial SUBCUT TIDWM [facility] Insulin Human Lispro 0 unit 03/14/21 07:30 Insulin Lispro 100 Unit/Ml 3 Ml Vial SUBCUT QIDACHS [facility] Protocol Lactic Acid 1 appl 03/14/21 09:00 Ammonium Lactate 12 % Cream 140 Gm Tube TOPICAL BID [facility] Protocol Methadone HCl 50 mg 03/14/21 09:00 Methadone Hcl 1 Mg/0.1 Ml Oral.Conc PO DAILY [facility] Metoprolol Succinate 100 mg 03/14/21 09:00 Metoprolol Succinate Er 100 Mg Tab.Er.24h PO DAILY [facility] Protocol Non-Formulary Medication 1 tab 03/14/21 09:00 Emtricitab/Rilpiviri/Tenof Ala PO DAILY [facility] Non-Formulary Medication 60 unit 03/14/21 09:00 Insulin Degludec [Tresiba Flextouch U-100] SUBCUT DAILY [facility] Ondansetron HCl 4 mg 03/13/21 20:20 Ondansetron Hcl 4 Mg/2 Ml Vial IVPUSH Q8H PRN Nausea and Vomiting Pharmacy Consult 1 each 03/13/21 20:20 Consult Rx Vancomycin Dosing MISCELLANE DAILY PRN Consult order Quetiapine Fumarate 100 mg 03/13/21 23:20 03/13/21 23:48 Quetiapine Fumarate 100 Mg Tablet PO 100 mg BEDTIME [facility] Administration Sodium Chloride 3 ml 03/14/21 00:00 03/14/21 00:20 0.9 % Sodium Chloride Flush 3 Ml Syringe IVFLUSH Not Given QSHIFT [facility] Vitamin D 50 mcg 03/14/21 09:00 Cholecalciferol (Vitamin D3) 25 Mcg Tablet PO DAILY [facility] Home Medications Medication Instructions Recorded Confirmed Last Taken Type ammonium lactate 12 % topical cream 1 appl TOPICAL BID 08/08/20 03/13/21 Unknown History aspirin 81 mg tablet,delayed 81 mg PO DAILY 08/08/20 03/13/21 Unknown History release blood sugar diagnostic #10 ea 08/08/20 10/16/20 Unknown History cholecalciferol (vitamin D3) 50 50 mcg PO DAILY 08/08/20 03/13/21 Unknown History mcg (2,000 unit) tablet dulaglutide 1.5 mg/0.5 mL 1.5 mg SUBCUT QWEEK 08/08/20 03/13/21 Unknown History subcutaneous pen injector furosemide 20 mg tablet 20 mg PO DAILY PRN 08/08/20 03/13/21 Unknown History hydrochlorothiazide 25 mg tablet 25 mg PO DAILY 08/08/20 03/13/21 Unknown History insulin syringe-needle U-100 1 mL #10 ea 08/08/20 10/16/20 Unknown History 29 gauge x 1/2 metoprolol succinate 100 mg 100 mg PO DAILY 08/08/20 03/13/21 11/14/20 09:30 History tablet,extended release 24 hr quetiapine 100 mg tablet 100 mg PO BEDTIME 08/08/20 03/13/21 Unknown History lancets 33 gauge #100 ea 11/08/20 Unknown History metformin 500 mg tablet,extended 1,000 mg PO DAILY 11/08/20 12/05/20 Unknown History release 24 hr pen needle, diabetic 32 gauge x #50 ea 11/08/20 Unknown History methadone 10 mg/mL oral concentrate 50 mg PO DAILY 11/12/20 03/13/21 11/14/20 09:30 History emtricitabine 200 mg-rilpivirine 1 tab PO DAILY 12/05/20 03/13/21 Unknown History 25 mg-tenofovir alafenam 25 mg tablet (Odefsey) insulin aspart U-100 100 unit/mL 20 unit SUBCUT TIDWM 12/05/20 03/13/21 Unknown History (3 mL) subcutaneous pen (Novolog Flexpen U-100 Insulin aspart) insulin degludec 100 unit/mL (3 60 unit SUBCUT DAILY 12/05/20 03/13/21 Unknown History mL) subcutaneous pen (Tresiba FlexTouch U-100 insulin) Physical Exam Vital Signs and Narrative: Vital Signs: Last Vital Signs Temp 97.1 F 03/14/21 03:48 Pulse 81 03/14/21 03:48 Resp 18 03/14/21 03:48 BP 160/77 H 03/14/21 03:48 Pulse Ox 100 03/14/21 03:48 Body Mass Index 31.9 Const: General: cooperative and no acute distress Eyes: General: appearance normal, both eyes and all related structures Resp: Effort & Inspection: normal respiratory effort and able to speak in complete sentences Auscultation: clear to auscultation bilaterally Cardio: Rate: regular rate Rhythm: regular rhythm GI: Palpation (GI): Soft to palpation Auscultation: normal bowel sounds Skin: General skin exam: no rashes or lesions noted Neuro: Cognition (Neuro): normal cognition Extrem: Other: Right 5th toe swollen, presence of an open wound that is black in color, no drainage. Has Estrace swelling of right extremity to to the vazquez. Left foot heel well-healed wound. Results Labs CBC and Chem 7: 03/13/21 16:12 03/13/21 16:12 Labs: Laboratory Results - last 24 hr 03/13/21 03/13/21 03/13/21 16:12 16:12 16:12 MCV 93.0 MCH 31.9 MCHC 34.3 RDW 12.7 Plt Count 128 L MPV 12.0 Immature Gran % (Auto) 0.5 H Neut % (Auto) 72.4 Lymph % (Auto) 18.6 L [place] % (Auto) 6.4 Eos % (Auto) 1.5 Baso % (Auto) 0.6 Lymph # (Auto) 2.7 [place] # (Auto) 0.9 Eos # (Auto) 0.2 Baso # (Auto) 0.1 Abs Immat Gran (auto) 0.07 H Absolute Neuts (auto) 10.3 H Absolute Nucleated RBC 0.000 Nucleated RBC % (auto) 0.0 ESR 85 H Anion Gap 13 Estim Creat Clear Calc 57.6 Estimated GFR 46 POC Glucose Random Glucose 249 H Lactic Acid Calcium 9.4 D C-Reactive Protein 7.18 H Coronavirus (PCR) Influenza Type A (PCR) Influenza Type B (PCR) RSV RNA Qual (PCR) 03/13/21 03/13/21 03/13/21 18:37 18:39 21:54 MCV MCH MCHC RDW Plt Count MPV Immature Gran % (Auto) Neut % (Auto) Lymph % (Auto) [place] % (Auto) Eos % (Auto) Baso % (Auto) Lymph # (Auto) [place] # (Auto) Eos # (Auto) Baso # (Auto) Abs Immat Gran (auto) Absolute Neuts (auto) Absolute Nucleated RBC Nucleated RBC % (auto) ESR Anion Gap Estim Creat Clear Calc Estimated GFR POC Glucose 159 H Random Glucose Lactic Acid 1.6 Calcium C-Reactive Protein Coronavirus (PCR) NEGATIVE Influenza Type A (PCR) NEGATIVE Influenza Type B (PCR) NEGATIVE RSV RNA Qual (PCR) NEGATIVE Imaging Radiologist's Impressions: Impressions Toe X-Ray 03/13/21 18:08 IMPRESSION: No evidence of osteomyelitis Assessment and Plan (1) Diabetic foot ulcer: Status: Acute (2) Acute kidney injury: Status: Acute (3) Non-healing wound: Status: Acute (4) Leukocytosis: Status: Acute (5) Right leg swelling: Status: Acute 55-year-old male with history of diabetes, osteomyelitis who presents with a nonhealing right foot 5th toe wound. # nonhealing wound,/diabetic foot ulcer - has elevated ESR and CRP - most likely osteomyelitis - was started on broad-spectrum antibiotics - follow cultures - MRI of the foot # COLT - creatinine of 1.51 with a baseline around 1 - unclear etiology - will start him on IV fluids - follow cultures - hold any nephrotoxic meds # right leg swelling - most likely secondary to toe infection but will rule out DVT - the next duplex ordered # leukocytosis - secondary to infection of right 5th toe - IV antibiotics - follow CBC # diabetes - continue home insulin - diabetic diet - will add low-dose sliding scale insulin # HIV - continue home medication # hypertension - will hold hydrochlorothiazide in the setting of COLT - hold furosemide DVT prophylaxis heparin subQ Quality Stroke Does the patient have a stroke diagnosis?: No VTE Prior VTE?: No VTE Risk Level:: Medical - moderate - high VTE Device Contraindication: Treatment Not Indicated VTE Drug Contraindication: N/A - Med Ordered
[2021-03-14 06:27] LABS: MANUAL DIFF FLAG NO
[2021-03-14 06:51] LABS: Basophils Absolute Auto 0.1 X10*3/uL (0.0-0.2); Basophils Percent Auto 0.8 % (0-2); Eosinophils Absolute Auto 0.3 X10*3/uL (0.0-0.4); Eosinophils Percent Auto 2.5 % (0-4); Hematocrit 30.8 % (42-52); Hemoglobin 10.7 g/dl (14.0-18.0); Imm Gran Abs Auto 0.05 X10*3/uL (0.00-0.03); Imm Gran Pct Auto 0.5 % (0.0-0.4); Lymphocytes Absolute Auto 2.9 X10*3/uL (1.2-4.9); Lymphocytes Percent Auto 27.7 % (20-40); Mean Corpuscular HGB Conc 34.7 g/dl (31.0-36.0); Mean Corpuscular Hemoglobin 32.2 pg (27.0-33.0); Mean Corpuscular Volume 92.8 fL (80-98); Mean Platelet Volume 12.4 fL (9.4-12.4); Monocytes Absolute Auto 0.8 X10*3/uL (0.1-1.2); Monocytes Percent Auto 7.8 % (2-11); Neutrophils Absolute Auto 6.4 X10*3/uL (2.0-8.3); Neutrophils Percent Auto 60.7 % (45-73); Platelet Count 111 X10*3/uL (160-400); Red Blood Count 3.32 X10*6/uL (4.60-5.80); Red Cell Distribution Width 12.6 % (11.0-16.0); White Blood Count 10.6 X10*3/uL (4.8-10.8)
[2021-03-14 07:07] LABS: Anion Gap 12 (12-20); Blood Urea Nitrogen 38 mg/dL (9-16); Calcium 8.4 mg/dL (8.4-10.2); Carbon Dioxide 28 mmol/L (22-29); Chloride 101 mmol/L (96-108); Creatinine Clr Calc Pharmacy 68.5; Estimated Glomerular Filt Rate 56; Glucose Random 204 mg/dL (60-115); Potassium 4.2 mmol/L (3.3-5.1); Sodium 137 mmol/L (135-145)
[2021-03-14 07:22] VITALS: BP 155/73; PULSE 74; RESP 18; TEMP 36; O2SAT 100
[2021-03-14 07:42] LABS: Glucose, Whole Blood 206 mg/dL (60-115)
[2021-03-14] MEDS: Insulin Lispro 100 UNIT/ML 3 ML VIAL 20 UNIT SUBCUT ×3 (08:18→16:13)
[2021-03-14] MEDS: Insulin Lispro 100 UNIT/ML 3 ML VIAL SUBCUT ×3 (08:19→16:14)
[2021-03-14] MEDS: Lactated Ringers 1,000 ML 100 ML IVCONT (09:00)
[2021-03-14] MEDS: Docusate Sodium 100 MG CAPSULE PO ×2 (09:01→20:39)
[2021-03-14] MEDS: Aspirin Enteric Coated 81 MG TABLET.DR PO (09:01)
[2021-03-14] MEDS: 0.9 % Sodium Chloride Flush 3 ML SYRINGE IVFLUSH ×3 (09:01→20:40)
[2021-03-14] MEDS: Metoprolol Succinate ER 100 MG TAB.ER.24H PO (09:01)
[2021-03-14] MEDS: Heparin Sodium,Porcine 5,000 UNIT/ML VIAL 5000 UNIT SUBCUT ×2 (09:01→20:39)
[2021-03-14] MEDS: Cholecalciferol (Vitamin D3) 25 MCG TABLET 50 MCG PO (09:01)
--- NOTE | 2021-03-14 09:33 | MHC.CM.PN ---
PATIENT LIVES WITH FAMILY. HE HAS ASSIGNED HIS SISTER, SOULEYMANE, HIS SOLE HCP AGENT. COPY FAXED INTO [employer] AND PLACED IN CHART. PATIENT HAS ORIGINAL AND [place] [facility] [place]. [facility] LEFT WITH OFFICE FOR MAILING. PATIENT USES A CANE AND A WALKER AND HAS [employer] (APPROX 2O HOURS PER WEEK). SISTER WILL PROVIDE TRANSPORT AT [place]. IMM 03/14 IN CHART.
[2021-03-14] MEDS: Ammonium Lactate 12 % Cream 140 GM TUBE 1 APPL TOPICAL ×2 (09:52→21:28)
[2021-03-14] MEDS: vancomycin HCL 750 MG in 0.9 % Sodium Chloride 250 ML 265 MG IV ×2 (09:52→21:23)
--- NOTE | 2021-03-14 10:39 | P.CDIC_ITS ---
CDI Concurrent Query Service Date: 03/14/21 Documentation Clarification: Please clarify if you are treating a proba ble/suspected/likely or confirmed: Labs: Hyperkalemia Other, please specify if known or undetermined Provider Response: Other Other Diagnosis: Hyperkalemia PLEASE DO NOT DELETE/MODIFY EXISTING CONTENT Additional information is needed in order to code to the highest accuracy and appropriate Severity of Illness (SOI). Please clarify the information noted below in your progress notes and discharge summary. Risk Factors/Clinical Indicators/Treatments Lab findings: potassium 5.3 H CDS: Vaishnavi Mccarthy CCS, CDIS Contact Number: [phone] Please Review the information above and exercise your independent professional judgment in responding to the query. If you concur, pleas document in the PROGRESS NOTES and DISCHARGE SUMMARY. If you do not agree with the query, please document in the query above. THIS QUERY IS PART OF THE PERMANENT MEDICAL RECORD
[2021-03-14 11:15] VITALS: BP 136/65; PULSE 71; RESP 18; TEMP 36; O2SAT 95
[2021-03-14 11:47] LABS: Glucose, Whole Blood 245 mg/dL (60-115)
--- NOTE | 2021-03-14 14:13 | P.PNIM_ITS ---
Subjective Subjective Date of Service: 03/14/21 Interval History: the patient was seen and evaluated this morning Laying in bed, complaining of pain in his right foot Denies any fever, chills or shortness of breath No reported other overnight events. Systemic review: No fever, chills or weakness No chest pain, palpitation No shortness of breath or coughing No abdominal pain, nausea or vomiting No urinary symptoms Fifth toe blackish discoloration with pain Physical Exam Vital Signs: Vital Signs: Last Vital Signs Temp 96.8 F 03/14/21 11:15 Pulse 71 03/14/21 11:15 Resp 18 03/14/21 11:15 BP 136/65 03/14/21 11:15 Pulse Ox 95 03/14/21 11:15 Body Mass Index 31.9 Const: Other: Constitutional : Alert, oriented, not in distress Neck : Normal inspection, Supple Cardiovascular : RRR, S1 S2, no lower extremity edema Respiratory : Good bilateral air entry, no crackles, wheezes or rhonchi Gastrointestinal: soft, lax, Normal bowel sounds, Non tender Skin : Warm, Dry, right 5th toe swollen with surrounding erythema and tenderness to touch Neurological : Alert & oriented x3, No focal deficit Objective Data Current Medications Generic Name Dose Route Start Last Admin Trade Name Freq PRN Reason Stop Dose Admin Acetaminophen 650 mg 03/13/21 20:20 Acetaminophen 325 Mg Tablet PO Q6H PRN Pain, Mild (Pain Scale 1-3) Aspirin 81 mg 03/14/21 09:00 03/14/21 09:01 Aspirin Enteric Coated 81 Mg Tablet. PO 81 mg DAILY [facility] Administration Dextrose 25 gm 03/13/21 23:18 Dextrose 50 % 25 Gm/50 Ml Vial IVPUSH Q15M PRN per Hypoglycemia Standing Ord. Protocol Docusate Sodium 100 mg 03/13/21 21:00 03/14/21 09:01 Docusate Sodium 100 Mg Capsule PO 100 mg BID [facility]O Administration Glucose 15 gm 03/13/21 23:18 Glucose Gel 15 Gm Gel..Gram. PO Q15M PRN per Hypoglycemia Standing Ord. Protocol Heparin Sodium (Porcine) 5,000 unit 03/13/21 21:00 03/14/21 09:01 Heparin Sodium,Porcine 5,000 Unit/Ml Vial SUBCUT 5,000 unit Q12H [facility] Administration Piperacillin Sod/Tazobactam 50 mls @ 100 mls/hr 03/14/21 03:00 03/14/21 09:53 Sod 3.375 gm/ Sodium Chloride IV Infused Q6H [facility] Infusion Lactated Ringer's 1,000 mls @ 100 mls/hr 03/13/21 20:30 03/14/21 09:00 Lr IVCONT 100 mls/hr .Q10H [facility] Administration Vancomycin HCl 750 mg/ Sodium 265 mls @ 265 mls/hr 03/14/21 10:00 03/14/21 10:55 Chloride IV Infused Q12H [facility] Infusion Insulin Glargine 42 unit 03/14/21 21:00 Insulin Glargine,Hum.Rec.Anlog 100 Unit/Ml 10 Ml Vial SUBCUT BEDTIME [facility] Insulin Human Lispro 20 unit 03/14/21 08:00 03/14/21 11:57 Insulin Lispro 100 Unit/Ml 3 Ml Vial SUBCUT 20 unit TIDWM [facility] Administration Insulin Human Lispro 0 unit 03/14/21 07:30 03/14/21 11:58 Insulin Lispro 100 Unit/Ml 3 Ml Vial SUBCUT 4 unit QIDACHS [facility] Administration Protocol Lactic Acid 1 appl 03/14/21 09:00 03/14/21 09:52 Ammonium Lactate 12 % Cream 140 Gm Tube TOPICAL 1 appl BID LIBRADO Administration Protocol Methadone HCl 50 mg 03/14/21 09:00 03/14/21 09:04 Methadone Hcl 1 Mg/0.1 Ml Oral.Conc PO 50 mg DAILY [facility] Administration Metoprolol Succinate 100 mg 03/14/21 09:00 03/14/21 09:01 Metoprolol Succinate Er 100 Mg Tab.Er.24h PO 100 mg DAILY [facility] Administration Protocol Patient Own 1 each 03/14/21 10:15 03/14/21 13:45 Medication ( PO 1 each Emtricitabine/ DAILY [facility] Administration Rilpivirine/ Tenofovir {Odefsey}) Ondansetron HCl 4 mg 03/13/21 20:20 Ondansetron Hcl 4 Mg/2 Ml Vial IVPUSH Q8H PRN Nausea and Vomiting Pharmacy Consult 1 each 03/13/21 20:20 Consult Rx Vancomycin Dosing MISCELLANE DAILY PRN Consult order Quetiapine Fumarate 100 mg 03/13/21 23:20 03/13/21 23:48 Quetiapine Fumarate 100 Mg Tablet PO 100 mg BEDTIME [facility]RADO Administration Sodium Chloride 3 ml 03/14/21 00:00 03/14/21 09:01 0.9 % Sodium Chloride Flush 3 Ml Syringe IVFLUSH 3 ml QSHIFT [facility] Administration Vitamin D 50 mcg 03/14/21 09:00 03/14/21 09:01 Cholecalciferol (Vitamin D3) 25 Mcg Tablet PO 50 mcg DAILY [facility] Administration Labs CBC & Chem 7: 03/14/21 06:11 03/14/21 06:11 Labs: Laboratory Results - last 24 hr 03/13/21 03/13/21 03/13/21 16:12 16:12 16:12 MCV 93.0 MCH 31.9 MCHC 34.3 RDW 12.7 Plt Count 128 L MPV 12.0 Immature Gran % (Auto) 0.5 H Neut % (Auto) 72.4 Lymph % (Auto) 18.6 L [place] % (Auto) 6.4 Eos % (Auto) 1.5 Baso % (Auto) 0.6 Lymph # (Auto) 2.7 [place] # (Auto) 0.9 Eos # (Auto) 0.2 Baso # (Auto) 0.1 Abs Immat Gran (auto) 0.07 H Absolute Neuts (auto) 10.3 H Absolute Nucleated RBC 0.000 Nucleated RBC % (auto) 0.0 ESR 85 H Anion Gap 13 Estim Creat Clear Calc 57.6 Estimated GFR 46 POC Glucose Random Glucose 249 H Lactic Acid Calcium 9.4 D C-Reactive Protein 7.18 H Coronavirus (PCR) Influenza Type A (PCR) Influenza Type B (PCR) RSV RNA Qual (PCR) 03/13/21 03/13/21 03/13/21 18:37 18:39 21:54 MCV MCH MCHC RDW Plt Count MPV Immature Gran % (Auto) Neut % (Auto) Lymph % (Auto) [place] % (Auto) Eos % (Auto) Baso % (Auto) Lymph # (Auto) [place] # (Auto) Eos # (Auto) Baso # (Auto) Abs Immat Gran (auto) Absolute Neuts (auto) Absolute Nucleated RBC Nucleated RBC % (auto) ESR Anion Gap Estim Creat Clear Calc Estimated GFR POC Glucose 159 H Random Glucose Lactic Acid 1.6 Calcium C-Reactive Protein Coronavirus (PCR) NEGATIVE Influenza Type A (PCR) NEGATIVE Influenza Type B (PCR) NEGATIVE RSV RNA Qual (PCR) NEGATIVE 03/14/21 03/14/21 03/14/21 06:11 06:11 07:21 MCV 92.8 MCH 32.2 MCHC 34.7 RDW 12.6 Plt Count 111 L MPV 12.4 Immature Gran % (Auto) 0.5 H Neut % (Auto) 60.7 Lymph % (Auto) 27.7 [place] % (Auto) 7.8 Eos % (Auto) 2.5 Baso % (Auto) 0.8 Lymph # (Auto) 2.9 [place] # (Auto) 0.8 Eos # (Auto) 0.3 Baso # (Auto) 0.1 Abs Immat Gran (auto) 0.05 H Absolute Neuts (auto) 6.4 Absolute Nucleated RBC 0.000 Nucleated RBC % (auto) 0.0 ESR Anion Gap 12 Estim Creat Clear Calc 68.5 Estimated GFR 56 POC Glucose 206 H Random Glucose 204 H Lactic Acid Calcium 8.4 D C-Reactive Protein Coronavirus (PCR) Influenza Type A (PCR) Influenza Type B (PCR) RSV RNA Qual (PCR) 03/14/21 11:14 MCV MCH MCHC RDW Plt Count MPV Immature Gran % (Auto) Neut % (Auto) Lymph % (Auto) [place] % (Auto) Eos % (Auto) Baso % (Auto) Lymph # (Auto) [place] # (Auto) Eos # (Auto) Baso # (Auto) Abs Immat Gran (auto) Absolute Neuts (auto) Absolute Nucleated RBC Nucleated RBC % (auto) ESR Anion Gap Estim Creat Clear Calc Estimated GFR POC Glucose 245 H Random Glucose Lactic Acid Calcium C-Reactive Protein Coronavirus (PCR) Influenza Type A (PCR) Influenza Type B (PCR) RSV RNA Qual (PCR) Assessment and Plan (1) Right leg swelling: Status: Acute (2) Leukocytosis: Status: Acute (3) Non-healing wound: Status: Acute (4) Acute kidney injury: Status: Acute Assessment and Plan: 55-year-old male with history of diabetes, osteomyelitis who presents with a nonhealing right foot 5th toe wound. # nonhealing wound,/diabetic foot ulcer elevated ESR and CRP Evaluate with MRI to rule out osteomyelitis Continue broad-spectrum antibiotics follow cultures # COLT Improving to 1.3 Continue IV fluids hold any nephrotoxic meds # right leg swelling secondary to toe infection but will rule out DVT Negative Doppler # diabetes continue home insulin diabetic diet low-dose sliding scale insulin # HIV continue home medication # hypertension will hold hydrochlorothiazide in the setting of COLT hold furosemide DVT prophylaxis heparin subQ Quality Stroke Does the patient have a stroke diagnosis?: No VTE Prior VTE?: No VTE Risk Level:: Medical - moderate - high VTE Device Contraindication: Treatment Not Indicated VTE Drug Contraindication: N/A - Med Ordered
[2021-03-14 15:05] VITALS: BP 127/63; PULSE 73; RESP 17; TEMP 36.2; O2SAT 97
--- NOTE | 2021-03-14 15:53 | PM.CNGS ---
History of Present Illness Consult details Consult date: 03/14/21 Narrative: 55-year-old male referred for a toe ulcer. The patient describes an ulcer on the 5th toe on the right side for about 2 weeks now. He says that the toe has become progressively swollen. He describes discoloration of the entire toe as well. He says sometimes this has some throbbing pain but generally he really does not complain of significant tenderness. [facility] and was sent to the emergency room because of this. He does have a history of a left heel ulcer and had undergone a graft for this with Dr. Linares last December. He has known longstanding diabetes. He is being seen by Dr. Billings of vascular surgery next week as well he says. Review of Systems Constitutional: Constitutional: Denies chills and Denies fever(s) Cardiovascular: Cardiovascular: Denies chest pain, Denies dyspnea and Denies dyspnea on exertion Respiratory: Respiratory: Denies cough, Denies dyspnea and Denies dyspnea on exertion Gastrointestinal: Gastrointestinal: Denies hematochezia and Denies change in bowel habits Genitourinary: Genitourinary: Denies hematuria and Denies difficulty urinating Musculoskeletal: Musculoskeletal: Denies back pain and Denies limited range of motion Neurologic: Denies focal weakness and Denies convulsions Psychiatric: Psychiatric: Denies depression and Denies mood swings PMFSH Past Medical History Medical History (Updated 03/14/21 @ 15:56 by Doug Wahl MD) Cirrhosis COVID-19 vaccine administered Depression Diabetes GERD (gastroesophageal reflux disease) Hepatitis History of hyperbaric oxygen therapy HIV (human immunodeficiency virus infection) Hx of drug dependence Hyperlipidemia Hypertension Osteomyelitis Toe ulcer Family History Family History Father Diabetes HTN (hypertension) Mother HTN (hypertension) Daughter No problems noted. Surgical History Surgical History H/O skin graft S/P angiogram of extremity Status post debridement Social History Social History Household Members: Family Housing: House Are you a primary hospice patient care secretary to a significant other at home: No Do you presently have visiting nurse or other home services: Yes Alcohol intake: never Patient Tobacco Use Status: Current everyday Tobacco user Tobacco use type: Cigarette Cigarette Packs Per Day: 0 Cigarettes Per Day: 4 Years Smoked: 40 Smoked in Last 30 Days: Yes e-Cigarette/Vaping Use: Never Used Patient Interested in Nicotine Replacement: No Patient Given Instructions on How to Stop Smoking: Yes (pt is willing and is trying to quit) Date Education Initiated: 03/13/21 Second Hand Smoke Exposure: No Use of substances other than those prescribed or required for medical reasons: No Substance Use Type: Former Substance User and Heroin Currently Displaying Signs/Symptoms of Drug Intoxication Withdrawal: No Have you been hit, kicked, punched, or otherwise hurt by someone within the past year? If so, by whom?: No Do you feel safe in your current relationship?: Yes Is there a partner from a previous relationship who is making you feel unsafe now?: No Are you made to feel afraid or neglected: No Advance Directives: Yes Advance Directives Information Provided: Yes Advance Directives on File: No Advance Directives Date on File: 03/13/21 Do you have thoughts of harming others: None Do you have a plan to hurt others: No Plan Recently lost weight without trying: No Eating poorly because of decreased appetite: No Nutrition Risks: No Nutritional Risk Poor oral hygiene: No service: No Current occupational status: disabled Meds Allergies Allergy/AdvReac Type Severity Reaction Status Date / Time trazodone [TRAZODONE] Allergy Unknown UNKNOWN Verified 12/04/20 09:37 Active Medications: Current Medications Generic Name Dose Route Start Last Admin Trade Name Freq PRN Reason Stop Dose Admin Acetaminophen 650 mg 03/13/21 20:20 Acetaminophen 325 Mg Tablet PO Q6H PRN Pain, Mild (Pain Scale 1-3) Aspirin 81 mg 03/14/21 09:00 03/14/21 09:01 Aspirin Enteric Coated 81 Mg Tablet. PO 81 mg DAILY LIBRADO Administration Dextrose 25 gm 03/13/21 23:18 Dextrose 50 % 25 Gm/50 Ml Vial IVPUSH Q15M PRN per Hypoglycemia Standing Ord. Protocol Docusate Sodium 100 mg 03/13/21 21:00 03/14/21 09:01 Docusate Sodium 100 Mg Capsule PO 100 mg BID LIBRADO Administration Glucose 15 gm 03/13/21 23:18 Glucose Gel 15 Gm Gel..Gram. PO Q15M PRN per Hypoglycemia Standing Ord. Protocol Heparin Sodium (Porcine) 5,000 unit 03/13/21 21:00 03/14/21 09:01 Heparin Sodium,Porcine 5,000 Unit/Ml Vial SUBCUT 5,000 unit Q12H LIBRADO Administration Piperacillin Sod/Tazobactam 50 mls @ 100 mls/hr 03/14/21 03:00 03/14/21 15:40 Sod 3.375 gm/ Sodium Chloride IV Infused Q6H LIBRADO Infusion Lactated Ringer's 1,000 mls @ 100 mls/hr 03/13/21 20:30 03/14/21 09:00 Lr IVCONT 100 mls/hr .Q10H LIBRADO Administration Vancomycin HCl 750 mg/ Sodium 265 mls @ 265 mls/hr 03/14/21 10:00 03/14/21 10:55 Chloride IV Infused Q12H LIBRADO Infusion Insulin Glargine 42 unit 03/14/21 21:00 Insulin Glargine,Hum.Rec.Anlog 100 Unit/Ml 10 Ml Vial SUBCUT BEDTIME LIBRADO Insulin Human Lispro 20 unit 03/14/21 08:00 03/14/21 11:57 Insulin Lispro 100 Unit/Ml 3 Ml Vial SUBCUT 20 unit TIDWM LIBRADO Administration Insulin Human Lispro 0 unit 03/14/21 07:30 03/14/21 11:58 Insulin Lispro 100 Unit/Ml 3 Ml Vial SUBCUT 4 unit QIDACHS [facility] Administration Protocol Lactic Acid 1 appl 03/14/21 09:00 03/14/21 09:52 Ammonium Lactate 12 % Cream 140 Gm Tube TOPICAL 1 appl BID LIBRADO Administration Protocol Methadone HCl 50 mg 03/14/21 09:00 03/14/21 09:04 Methadone Hcl 1 Mg/0.1 Ml Oral.Conc PO 50 mg DAILY LIBRADO Administration Metoprolol Succinate 100 mg 03/14/21 09:00 03/14/21 09:01 Metoprolol Succinate Er 100 Mg Tab.Er.24h PO 100 mg DAILY LIBRADO Administration Protocol Patient Own 1 each 03/14/21 10:15 03/14/21 13:45 Medication ( PO 1 each Emtricitabine/ DAILY LIBRADO Administration Rilpivirine/ Tenofovir {Odefsey}) Ondansetron HCl 4 mg 03/13/21 20:20 Ondansetron Hcl 4 Mg/2 Ml Vial IVPUSH Q8H PRN Nausea and Vomiting Pharmacy Consult 1 each 03/13/21 20:20 Consult Rx Vancomycin Dosing MISCELLANE DAILY PRN Consult order Quetiapine Fumarate 100 mg 03/13/21 23:20 03/13/21 23:48 Quetiapine Fumarate 100 Mg Tablet PO 100 mg BEDTIME LIBRADO Administration Sodium Chloride 3 ml 03/14/21 00:00 03/14/21 15:09 0.9 % Sodium Chloride Flush 3 Ml Syringe IVFLUSH 3 ml QSHIFT LIBRADO Administration Vitamin D 50 mcg 03/14/21 09:00 03/14/21 09:01 Cholecalciferol (Vitamin D3) 25 Mcg Tablet PO 50 mcg DAILY LIBRADO Administration Home Medications Medication Instructions Recorded Confirmed Last Taken Type ammonium lactate 12 % topical cream 1 appl TOPICAL BID 08/08/20 03/13/21 Unknown History aspirin 81 mg tablet,delayed 81 mg PO DAILY 08/08/20 03/13/21 Unknown History release blood sugar diagnostic #10 ea 08/08/20 10/16/20 Unknown History cholecalciferol (vitamin D3) 50 50 mcg PO DAILY 08/08/20 03/13/21 Unknown History mcg (2,000 unit) tablet dulaglutide 1.5 mg/0.5 mL 1.5 mg SUBCUT QWEEK 08/08/20 03/13/21 Unknown History subcutaneous pen injector furosemide 20 mg tablet 20 mg PO DAILY PRN 08/08/20 03/13/21 Unknown History hydrochlorothiazide 25 mg tablet 25 mg PO DAILY 08/08/20 03/13/21 Unknown History insulin syringe-needle U-100 1 mL #10 ea 08/08/20 10/16/20 Unknown History 29 gauge x 1/2 metoprolol succinate 100 mg 100 mg PO DAILY 08/08/20 03/13/21 11/14/20 09:30 History tablet,extended release 24 hr quetiapine 100 mg tablet 100 mg PO BEDTIME 08/08/20 03/13/21 Unknown History lancets 33 gauge #100 ea 11/08/20 Unknown History metformin 500 mg tablet,extended 1,000 mg PO DAILY 11/08/20 12/05/20 Unknown History release 24 hr pen needle, diabetic 32 gauge x #50 ea 11/08/20 Unknown History methadone 10 mg/mL oral concentrate 50 mg PO DAILY 11/12/20 03/13/21 11/14/20 09:30 History emtricitabine 200 mg-rilpivirine 1 tab PO DAILY 12/05/20 03/13/21 Unknown History 25 mg-tenofovir alafenam 25 mg tablet (Odefsey) insulin aspart U-100 100 unit/mL 20 unit SUBCUT TIDWM 12/05/20 03/13/21 Unknown History (3 mL) subcutaneous pen (Novolog Flexpen U-100 Insulin aspart) insulin degludec 100 unit/mL (3 60 unit SUBCUT DAILY 12/05/20 03/13/21 Unknown History mL) subcutaneous pen (Tresiba FlexTouch U-100 insulin) Physical Exam Vital Signs: Vital Signs: Last Vital Signs Temp 97.1 F 03/14/21 15:05 Pulse 73 03/14/21 15:05 Resp 17 03/14/21 15:05 BP 127/63 03/14/21 15:05 Pulse Ox 97 03/14/21 15:05 Body Mass Index 31.9 Const: General: comfortable and no acute distress Orientation/consciousness: patient oriented x3 Neck: Neck: Yes no lymphadenopathy Resp: Auscultation: clear to auscultation bilaterally Cardio: Rhythm: regular rhythm GI: Palpation (GI): Soft to palpation, nontender and no guarding Neuro: General: patient oriented x3 Extrem: Other: Trophic changes of both lower extremities, 5th toe with discoloration, diffuse edema, ulcer on the lower aspect, scanty drainage; will healed ulcer on the left heel Results Labs Result diagrams: 03/14/21 06:11 03/14/21 06:11 Labs: Abnormal lab results 03/13/21 03/13/21 03/13/21 Range/Units 16:12 16:12 16:12 WBC 14.3 H (4.8-10.8) X10*3/uL RBC 3.73 L (4.60-5.80) X10*6/uL Hgb 11.9 L (14.0-18.0) g/dl Hct 34.7 L (42-52) % Plt Count 128 L (160-400) X10*3/uL Immature Gran % (Auto) 0.5 H (0.0-0.4) % Lymph % (Auto) 18.6 L (20-40) % Abs Immat Gran (auto) 0.07 H (0.00-0.03) X10*3/uL Absolute Neuts (auto) 10.3 H (2.0-8.3) X10*3/uL ESR 85 H (0-15) MM/HR Potassium 5.3 H (3.3-5.1) mmol/L Carbon Dioxide 30 H (22-29) mmol/L BUN 40 H D (9-16) mg/dL Creatinine 1.57 H (0.5-1.4) mg/dL POC Glucose (60-115) mg/dL Random Glucose 249 H (60-115) mg/dL C-Reactive Protein 7.18 H (< or = 0.50) mg/dL 03/13/21 03/14/21 03/14/21 Range/Units 21:54 06:11 06:11 WBC (4.8-10.8) X10*3/uL RBC 3.32 L (4.60-5.80) X10*6/uL Hgb 10.7 L (14.0-18.0) g/dl Hct 30.8 L (42-52) % Plt Count 111 L (160-400) X10*3/uL Immature Gran % (Auto) 0.5 H (0.0-0.4) % Lymph % (Auto) (20-40) % Abs Immat Gran (auto) 0.05 H (0.00-0.03) X10*3/uL Absolute Neuts (auto) (2.0-8.3) X10*3/uL ESR (0-15) MM/HR Potassium (3.3-5.1) mmol/L Carbon Dioxide (22-29) mmol/L BUN 38 H (9-16) mg/dL Creatinine (0.5-1.4) mg/dL POC Glucose 159 H (60-115) mg/dL Random Glucose 204 H (60-115) mg/dL C-Reactive Protein (< or = 0.50) mg/dL 03/14/21 03/14/21 Range/Units 07:21 11:14 WBC (4.8-10.8) X10*3/uL RBC (4.60-5.80) X10*6/uL Hgb (14.0-18.0) g/dl Hct (42-52) % Plt Count (160-400) X10*3/uL Immature Gran % (Auto) (0.0-0.4) % Lymph % (Auto) (20-40) % Abs Immat Gran (auto) (0.00-0.03) X10*3/uL Absolute Neuts (auto) (2.0-8.3) X10*3/uL ESR (0-15) MM/HR Potassium (3.3-5.1) mmol/L Carbon Dioxide (22-29) mmol/L BUN (9-16) mg/dL Creatinine (0.5-1.4) mg/dL POC Glucose 206 H 245 H (60-115) mg/dL Random Glucose (60-115) mg/dL C-Reactive Protein (< or = 0.50) mg/dL Short CBC 03/13/21 03/14/21 Range/Units 16:12 06:11 WBC 14.3 H 10.6 (4.8-10.8) X10*3/uL Hgb 11.9 L 10.7 L (14.0-18.0) g/dl Hct 34.7 L 30.8 L (42-52) % Plt Count 128 L 111 L (160-400) X10*3/uL BMP 03/13/21 03/14/21 16:12 06:11 Sodium 136 137 Potassium 5.3 H 4.2 D Chloride 98 101 Carbon Dioxide 30 H 28 BUN 40 H D 38 H Creatinine 1.57 H 1.32 Calcium 9.4 D 8.4 D All other labs normal. Assessment and Plan (1) Toe ulcer: Status: Acute He has the toe ulcer on the 5th toe with edema and discoloration. This is suspicious for osteomyelitis. I would recommend proceeding with MRI of these foot. He has been started on IV antibiotics empirically. It may be best for in to be seen by Dr. Billings vascular surgery as well for vasculopathy of the right foot and leg. He has known diabetes and his blood sugars need to be well controlled. I can follow him while is in the hospital. Procedures Date of Service Date of Service: 03/14/21
[2021-03-14 16:00] LABS: Glucose, Whole Blood 167 mg/dL (60-115)
[2021-03-14 20:00] VITALS: BP 155/72; PULSE 79; RESP 20; TEMP 36; O2SAT 99
[2021-03-14 20:14] LABS: Glucose, Whole Blood 146 mg/dL (60-115)
[2021-03-14] MEDS: QUEtiapine Fumarate 100 MG TABLET PO (20:39)
[2021-03-14] MEDS: Insulin Glargine,Hum.rec.anlog 100 UNIT/ML 10 ML VIAL 42 UNIT SUBCUT (20:39)
[2021-03-14 23:23] VITALS: BP 136/65; PULSE 88; RESP 18; TEMP 36.9; O2SAT 100
[2021-03-15] MEDS: Piperacillin Sodium/Tazobactam 3.375 GM in 0.9 % Sodium Chloride 50 ML IV ×4 (02:53→20:15)
[2021-03-15] MEDS: Lactated Ringers 1,000 ML 100 ML IVCONT (02:54)
[2021-03-15 03:35] VITALS: BP 134/61; PULSE 73; RESP 18; TEMP 37; O2SAT 100
[2021-03-15 06:20] LABS: Hematocrit 30.7 % (42-52); Hemoglobin 10.5 g/dl (14.0-18.0); Mean Corpuscular HGB Conc 34.2 g/dl (31.0-36.0); Mean Corpuscular Hemoglobin 31.6 pg (27.0-33.0); Mean Corpuscular Volume 92.5 fL (80-98); Mean Platelet Volume 12.2 fL (9.4-12.4); Platelet Count 123 X10*3/uL (160-400); Red Blood Count 3.32 X10*6/uL (4.60-5.80); Red Cell Distribution Width 12.4 % (11.0-16.0); White Blood Count 8.6 X10*3/uL (4.8-10.8)
[2021-03-15 06:49] LABS: Anion Gap 11 (12-20); Blood Urea Nitrogen 26 mg/dL (9-16); Calcium 8.5 mg/dL (8.4-10.2); Carbon Dioxide 29 mmol/L (22-29); Chloride 102 mmol/L (96-108); Creatinine Clr Calc Pharmacy 75.4; Estimated Glomerular Filt Rate > 60; Glucose Random 159 mg/dL (60-115); Potassium 4.4 mmol/L (3.3-5.1); Sodium 138 mmol/L (135-145)
[2021-03-15 07:34] VITALS: BP 141/68; PULSE 79; RESP 18; TEMP 36; O2SAT 100
[2021-03-15 07:56] LABS: Glucose, Whole Blood 158 mg/dL (60-115)
[2021-03-15] MEDS: Cholecalciferol (Vitamin D3) 25 MCG TABLET 50 MCG PO (08:05)
[2021-03-15] MEDS: Aspirin Enteric Coated 81 MG TABLET.DR PO (08:06)
[2021-03-15] MEDS: Insulin Lispro 100 UNIT/ML 3 ML VIAL 20 UNIT SUBCUT ×3 (08:06→16:41)
[2021-03-15] MEDS: Docusate Sodium 100 MG CAPSULE PO ×2 (08:06→20:15)
[2021-03-15] MEDS: Metoprolol Succinate ER 100 MG TAB.ER.24H PO (08:06)
[2021-03-15] MEDS: Heparin Sodium,Porcine 5,000 UNIT/ML VIAL 5000 UNIT SUBCUT ×2 (08:06→20:15)
[2021-03-15] MEDS: 0.9 % Sodium Chloride Flush 3 ML SYRINGE IVFLUSH ×3 (08:07→20:22)
[2021-03-15] MEDS: Ammonium Lactate 12 % Cream 140 GM TUBE 1 APPL TOPICAL ×2 (08:07→20:20)
[2021-03-15] MEDS: Insulin Lispro 100 UNIT/ML 3 ML VIAL SUBCUT ×4 (08:07→20:14)
[2021-03-15 11:27] VITALS: BP 145/71; PULSE 74; RESP 18; TEMP 36.1; O2SAT 99
[2021-03-15] MEDS: vancomycin HCL 750 MG in 0.9 % Sodium Chloride 250 ML 265 MG IV ×2 (11:32→22:32)
[2021-03-15 11:55] LABS: Glucose, Whole Blood 154 mg/dL (60-115)
--- NOTE | 2021-03-15 12:02 | P.PNIM_ITS ---
Subjective Subjective Date of Service: 03/15/21 Interval History: the patient was seen and evaluated this morning Laying in bed, complaining of pain in his right foot Denies any fever, chills or shortness of breath No reported other overnight events. Systemic review: No fever, chills or weakness No chest pain, palpitation No shortness of breath or coughing No abdominal pain, nausea or vomiting No urinary symptoms Fifth toe blackish discoloration with pain Physical Exam Vital Signs: Vital Signs: Last Vital Signs Temp 96.9 F 03/15/21 11:27 Pulse 74 03/15/21 11:27 Resp 18 03/15/21 11:27 BP 145/71 H 03/15/21 11:27 Pulse Ox 99 03/15/21 11:27 Body Mass Index 31.9 Const: Other: Constitutional : Alert, oriented, not in distress Neck : Normal inspection, Supple Cardiovascular : RRR, S1 S2, no lower extremity edema Respiratory : Good bilateral air entry, no crackles, wheezes or rhonchi Gastrointestinal: soft, lax, Normal bowel sounds, Non tender Skin : Warm, Dry, right 5th toe swollen with surrounding erythema and tenderness to touch Neurological : Alert & oriented x3, No focal deficit Objective Data Current Medications Generic Name Dose Route Start Last Admin Trade Name Freq PRN Reason Stop Dose Admin Acetaminophen 650 mg 03/13/21 20:20 Acetaminophen 325 Mg Tablet PO Q6H PRN Pain, Mild (Pain Scale 1-3) Aspirin 81 mg 03/14/21 09:00 03/15/21 08:06 Aspirin Enteric Coated 81 Mg Tablet. PO 81 mg DAILY LIBRADO Administration Dextrose 25 gm 03/13/21 23:18 Dextrose 50 % 25 Gm/50 Ml Vial IVPUSH Q15M PRN per Hypoglycemia Standing Ord. Protocol Docusate Sodium 100 mg 03/13/21 21:00 03/15/21 08:06 Docusate Sodium 100 Mg Capsule PO 100 mg BID LIBRADO Administration Glucose 15 gm 03/13/21 23:18 Glucose Gel 15 Gm Gel..Gram. PO Q15M PRN per Hypoglycemia Standing Ord. Protocol Heparin Sodium (Porcine) 5,000 unit 03/13/21 21:00 03/15/21 08:06 Heparin Sodium,Porcine 5,000 Unit/Ml Vial SUBCUT 5,000 unit Q12H LIBRADO Administration Piperacillin Sod/Tazobactam 50 mls @ 100 mls/hr 03/14/21 03:00 03/15/21 08:47 Sod 3.375 gm/ Sodium Chloride IV Infused Q6H LIBRADO Infusion Vancomycin HCl 750 mg/ Sodium 265 mls @ 265 mls/hr 03/14/21 10:00 03/15/21 11:32 Chloride IV 265 mls/hr Q12H LIBRADO Administration Insulin Glargine 42 unit 03/14/21 21:00 03/14/21 20:39 Insulin Glargine,Hum.Rec.Anlog 100 Unit/Ml 10 Ml Vial SUBCUT 42 unit BEDTIME LIBRADO Administration Insulin Human Lispro 20 unit 03/14/21 08:00 03/15/21 11:54 Insulin Lispro 100 Unit/Ml 3 Ml Vial SUBCUT 20 unit TIDWM LIBRADO Administration Insulin Human Lispro 0 unit 03/14/21 07:30 03/15/21 11:54 Insulin Lispro 100 Unit/Ml 3 Ml Vial SUBCUT 2 unit QIDACHS LIBRADO Administration Protocol Lactic Acid 1 appl 03/14/21 09:00 03/15/21 08:07 Ammonium Lactate 12 % Cream 140 Gm Tube TOPICAL 1 appl BID LIBRADO Administration Protocol Methadone HCl 50 mg 03/14/21 09:00 03/15/21 08:06 Methadone Hcl 1 Mg/0.1 Ml Oral.Conc PO 50 mg DAILY LIBRADO Administration Metoprolol Succinate 100 mg 03/14/21 09:00 03/15/21 08:06 Metoprolol Succinate Er 100 Mg Tab.Er.24h PO 100 mg DAILY LIBRADO Administration Protocol Patient Own 1 each 03/14/21 10:15 03/15/21 08:09 Medication ( PO 1 each Emtricitabine/ DAILY LIBRADO Administration Rilpivirine/ Tenofovir {Michelesey}) Ondansetron HCl 4 mg 03/13/21 20:20 Ondansetron Hcl 4 Mg/2 Ml Vial IVPUSH Q8H PRN Nausea and Vomiting Pharmacy Consult 1 each 03/13/21 20:20 Consult Rx Vancomycin Dosing MISCELLANE DAILY PRN Consult order Quetiapine Fumarate 100 mg 03/13/21 23:20 03/14/21 20:39 Quetiapine Fumarate 100 Mg Tablet PO 100 mg BEDTIME LIBRADO Administration Senna 8.6 mg 03/15/21 10:30 03/15/21 11:00 Sennosides 8.6 Mg Tablet PO Not Given DAILY [facility] Sodium Chloride 3 ml 03/14/21 00:00 03/15/21 08:07 0.9 % Sodium Chloride Flush 3 Ml Syringe IVFLUSH 3 ml QSHIFT [facility] Administration Vitamin D 50 mcg 03/14/21 09:00 03/15/21 08:05 Cholecalciferol (Vitamin D3) 25 Mcg Tablet PO 50 mcg DAILY LIBRADO Administration Labs CBC & Chem 7: 03/15/21 05:44 03/15/21 05:44 Labs: Laboratory Results - last 24 hr 03/14/21 03/14/21 03/15/21 15:44 20:09 05:44 MCV 92.5 MCH 31.6 MCHC 34.2 RDW 12.4 Plt Count 123 L MPV 12.2 Absolute Nucleated RBC 0.000 Nucleated RBC % (auto) 0.0 Anion Gap Estim Creat Clear Calc Estimated GFR POC Glucose 167 H 146 H Random Glucose Calcium 03/15/21 03/15/21 03/15/21 05:44 07:33 11:26 MCV MCH MCHC RDW Plt Count MPV Absolute Nucleated RBC Nucleated RBC % (auto) Anion Gap 11 L Estim Creat Clear Calc 75.4 Estimated GFR > 60 POC Glucose 158 H 154 H Random Glucose 159 H Calcium 8.5 Microbiology Microbiology Results: Microbiology 03/13/21 18:43 Blood Culture - Preliminary Blood - Venous No growth after 24 hours. 03/13/21 18:37 Blood Culture - Preliminary Blood - Venous No growth after 24 hours. Assessment and Plan (1) Toe ulcer: Status: Acute (2) Non-healing wound: Status: Acute (3) Osteomyelitis: Status: Acute Assessment and Plan: 55-year-old male with history of diabetes, osteomyelitis who presents with a nonhealing right foot 5th toe wound. # nonhealing wound,/diabetic foot ulcer # suspected osteomyelitis elevated ESR and CRP The MRI concerning for possible 5th toe osteomyelitis with a fracture Continue broad-spectrum antibiotics follow cultures Pending Vascular surgery evaluation # COLT Improving Discontinue IV fluids hold any nephrotoxic meds # right leg swelling secondary to toe infection but will rule out DVT Negative Doppler # diabetes continue home insulin diabetic diet low-dose sliding scale insulin # HIV continue home medication # hypertension will hold hydrochlorothiazide in the setting of COLT hold furosemide DVT prophylaxis heparin subQ Quality Stroke Does the patient have a stroke diagnosis?: No VTE Prior VTE?: No VTE Risk Level:: Medical - moderate - high VTE Device Contraindication: Treatment Not Indicated VTE Drug Contraindication: N/A - Med Ordered
--- NOTE | 2021-03-15 12:35 | MHC.CM.PN ---
PATIENT AWARE OF WINDOW INSTALLER ANTIBIOTIC POSSIBILITY. HE IS WANTING TO DISCHARGE HOME WITH [facility], AND IS AGREEABLE TO A REFERRAL TO , AND CHOOSES, [facility], IN THE EVENT THAT PATIENT NEEDS MORE CARE THAN A [facility] CAN PROVIDE AT [place]. BOTH REFERRALS PLACED. CASE MANAGEMENT FOLLOWING.
[2021-03-15 12:56] LABS: Vancomycin Trough 10.2 mcg/mL (10.0-20.0)
[2021-03-15 15:23] VITALS: BP 142/68; PULSE 76; RESP 20; TEMP 36; O2SAT 98
--- NOTE | 2021-03-15 15:33 | P.CNID_ITS ---
History of Present Illness Data of Consult Service Date: 03/15/21 Requesting physician: Turner Elmore Primary Care Provider: Suzie Estrada NP HPI Reason for consult: foot infection,HIV He presents to hospital with right foot redness and swelling, started two weeks ago after wore new footwear and worsening. He has dark skin and drainage over right 5th toe He has no fever or chills He takes Odefsey Review of Systems Review of Systems: Yes all other systems are reviewed and are negative [facility] Past Medical History Medical History Cirrhosis COVID-19 vaccine administered Depression Diabetes GERD (gastroesophageal reflux disease) Hepatitis History of hyperbaric oxygen therapy HIV (human immunodeficiency virus infection) Hx of drug dependence Hyperlipidemia Hypertension Osteomyelitis Toe ulcer Family History Family History Father Diabetes HTN (hypertension) Mother HTN (hypertension) Daughter No problems noted. Family history: reviewed and not pertinent Surgical History Surgical History H/O skin graft S/P angiogram of extremity Status post debridement Social History Social History Household Members: Family Housing: House Are you a primary urgent care nurse practitioner to a significant other at home: No Do you presently have visiting nurse or other home services: Yes Alcohol intake: never Patient Tobacco Use Status: Current everyday Tobacco user Tobacco use type: Cigarette Cigarette Packs Per Day: 0 Cigarettes Per Day: 5 Years Smoked: 35 e-Cigarette/Vaping Use: Never Used Second Hand Smoke Exposure: No Substance Use Type: Former Substance User and Heroin Advance Directives Date on File: 03/13/21 service: No Current occupational status: disabled Meds Allergies Allergy/AdvReac Type Severity Reaction Status Date / Time trazodone [TRAZODONE] Allergy Unknown UNKNOWN Verified 04/22/21 12:01 Active Medications: Current Medications Generic Name Dose Route Start Last Admin Trade Name Freq PRN Reason Stop Dose Admin Acetaminophen 650 mg 03/13/21 20:20 Acetaminophen 325 Mg Tablet PO Q6H PRN Pain, Mild (Pain Scale 1-3) Aspirin 81 mg 03/14/21 09:00 03/15/21 08:06 Aspirin Enteric Coated 81 Mg Tablet. PO 81 mg DAILY LIBRADO Administration Dextrose 25 gm 03/13/21 23:18 Dextrose 50 % 25 Gm/50 Ml Vial IVPUSH Q15M PRN per Hypoglycemia Standing Ord. Protocol Docusate Sodium 100 mg 03/13/21 21:00 03/15/21 08:06 Docusate Sodium 100 Mg Capsule PO 100 mg BID LIBRADO Administration Glucose 15 gm 03/13/21 23:18 Glucose Gel 15 Gm Gel..Gram. PO Q15M PRN per Hypoglycemia Standing Ord. Protocol Heparin Sodium (Porcine) 5,000 unit 03/13/21 21:00 03/15/21 08:06 Heparin Sodium,Porcine 5,000 Unit/Ml Vial SUBCUT 5,000 unit Q12H LIBRADO Administration Piperacillin Sod/Tazobactam 50 mls @ 100 mls/hr 03/14/21 03:00 03/15/21 08:47 Sod 3.375 gm/ Sodium Chloride IV Infused Q6H LIBRADO Infusion Vancomycin HCl 750 mg/ Sodium 265 mls @ 265 mls/hr 03/14/21 10:00 03/15/21 13:04 Chloride IV Infused Q12H LIBRADO Infusion Insulin Glargine 42 unit 03/14/21 21:00 03/14/21 20:39 Insulin Glargine,Hum.Rec.Anlog 100 Unit/Ml 10 Ml Vial SUBCUT 42 unit BEDTIME LIBRADO Administration Insulin Human Lispro 20 unit 03/14/21 08:00 03/15/21 11:54 Insulin Lispro 100 Unit/Ml 3 Ml Vial SUBCUT 20 unit TIDWM LIBRADO Administration Insulin Human Lispro 0 unit 03/14/21 07:30 03/15/21 11:54 Insulin Lispro 100 Unit/Ml 3 Ml Vial SUBCUT 2 unit QIDACHS LIBRADO Administration Protocol Lactic Acid 1 appl 03/14/21 09:00 03/15/21 08:07 Ammonium Lactate 12 % Cream 140 Gm Tube TOPICAL 1 appl BID LIBRADO Administration Protocol Methadone HCl 50 mg 03/14/21 09:00 03/15/21 08:06 Methadone Hcl 1 Mg/0.1 Ml Oral.Conc PO 50 mg DAILY LIBRADO Administration Metoprolol Succinate 100 mg 03/14/21 09:00 03/15/21 08:06 Metoprolol Succinate Er 100 Mg Tab.Er.24h PO 100 mg DAILY LIBRADO Administration Protocol Patient Own 1 each 03/14/21 10:15 03/15/21 08:09 Medication ( PO 1 each Emtricitabine/ DAILY LIBRADO Administration Rilpivirine/ Tenofovir {Odefsey}) Ondansetron HCl 4 mg 03/13/21 20:20 Ondansetron Hcl 4 Mg/2 Ml Vial IVPUSH Q8H PRN Nausea and Vomiting Pharmacy Consult 1 each 03/13/21 20:20 Consult Rx Vancomycin Dosing MISCELLANE DAILY PRN Consult order Quetiapine Fumarate 100 mg 03/13/21 23:20 03/14/21 20:39 Quetiapine Fumarate 100 Mg Tablet PO 100 mg BEDTIME LIBRADO Administration Senna 8.6 mg 03/15/21 10:30 03/15/21 11:00 Sennosides 8.6 Mg Tablet PO Not Given DAILY LIBRADO Sodium Chloride 3 ml 03/14/21 00:00 03/15/21 08:07 0.9 % Sodium Chloride Flush 3 Ml Syringe IVFLUSH 3 ml QSHIFT [facility] Administration Vitamin D 50 mcg 03/14/21 09:00 03/15/21 08:05 Cholecalciferol (Vitamin D3) 25 Mcg Tablet PO 50 mcg DAILY LIBRADO Administration Home Medications Medication Instructions Recorded Confirmed Last Taken Type ammonium lactate 12 % topical cream 1 appl TOPICAL BID 08/08/20 03/13/21 Unknown History aspirin 81 mg tablet,delayed 81 mg PO DAILY 08/08/20 03/13/21 04/20/21 History release blood sugar diagnostic #10 ea 08/08/20 10/16/20 Unknown History cholecalciferol (vitamin D3) 50 50 mcg PO DAILY 08/08/20 03/13/21 Unknown History mcg (2,000 unit) tablet dulaglutide 1.5 mg/0.5 mL 1.5 mg SUBCUT QWEEK 08/08/20 03/13/21 04/18/21 History subcutaneous pen injector furosemide 20 mg tablet 20 mg PO DAILY PRN 08/08/20 03/13/21 Unknown History hydrochlorothiazide 25 mg tablet 25 mg PO DAILY 08/08/20 03/13/21 Unknown His tory insulin syringe-needle U-100 1 mL #10 ea 08/08/20 10/16/20 Unknown History 29 gauge x 1/2 metoprolol succinate 100 mg 100 mg PO DAILY 08/08/20 03/13/21 11/14/20 09:30 History tablet,extended release 24 hr quetiapine 100 mg tablet 100 mg PO BEDTIME 08/08/20 03/13/21 Unknown History lancets 33 gauge #100 ea 11/08/20 Unknown History metformin 500 mg tablet,extended 1,000 mg PO DAILY 11/08/20 12/05/20 Unknown History release 24 hr pen needle, diabetic 32 gauge x #50 ea 11/08/20 Unknown History methadone 10 mg/mL oral concentrate 50 mg PO DAILY 11/12/20 03/13/21 04/22/21 10:30 History emtricitabine 200 mg-rilpivirine 1 tab PO DAILY 12/05/20 03/13/21 Unknown History 25 mg-tenofovir alafenam 25 mg tablet (Bryan) insulin aspart U-100 100 unit/mL 20 unit SUBCUT TIDWM 12/05/20 03/13/21 Unknown History (3 mL) subcutaneous pen (Novolog Flexpen U-100 Insulin aspart) insulin degludec 100 unit/mL (3 60 unit SUBCUT DAILY 12/05/20 03/13/21 Unknown History mL) subcutaneous pen (Tresiba FlexTouch U-100 insulin) insulin degludec 100 unit/mL (3 60 unit SUBCUT DAILY 04/22/21 04/22/21 04/21/21 21:30 History mL) subcutaneous pen (Tresiba 30 units FlexTouch U-100 insulin) Physical Exam Vital Signs: Vital Signs: Last Vital Signs Temp 96.8 F 03/15/21 15:23 Pulse 76 03/15/21 15:23 Resp 20 03/15/21 15:23 BP 142/68 H 03/15/21 15:23 Pulse Ox 98 03/15/21 15:23 Body Mass Index 31.9 Const: General: cooperative Orientation/consciousness: patient oriented x3 HENMT: Head: Yes normal to inspection Mouth: Normal oral and palatal mucosa present Resp: Effort & Inspection: normal respiratory effort Cardio: Rate: regular rate Rhythm: regular rhythm GI: Palpation (GI): Soft to palpation and not firm Skin: General skin exam: no rashes or lesions noted Neuro: General: patient oriented x3 Gait exam (Neuro): Other gait observations present (neuropathy feet) Extrem: Other: right 5th toe dark color and erythema Results Labs CBC & Chem 7: 03/20/21 05:59 03/20/21 05:59 Labs: Short CBC 03/15/21 Range/Units 05:44 WBC 8.6 (4.8-10.8) X10*3/uL Hgb 10.5 L (14.0-18.0) g/dl Hct 30.7 L (42-52) % Plt Count 123 L (160-400) X10*3/uL BMP 03/15/21 05:44 Sodium 138 Potassium 4.4 Chloride 102 Carbon Dioxide 29 BUN 26 H Creatinine 1.20 Calcium 8.5 Microbiology Microbiology Results: Microbiology 03/13/21 18:43 Blood - Venous Blood Culture - Preliminary No growth after 24 hours. 03/13/21 18:37 Blood - Venous Blood Culture - Preliminary No growth after 24 hours. Assessment and Plan (1) Osteomyelitis: Status: Acute There may be occult osteomyelitis leading to pathologic fracture (2) Diabetic foot ulcer: Status: Acute Fracture and possible osteomyelitis Would likely give Ertapenem for six weeks (3) HIV (human immunodeficiency virus infection): Status: Acute Continue Odefsey
--- NOTE | 2021-03-15 15:47 | PM.PNGS ---
Subjective Subjective Date of Service: 03/15/21 Interval history: Some pain on 5th toe No new complaints otherwise Physical Exam Vital Signs: Vital Signs: Last Vital Signs Temp 96.8 F 03/15/21 15:23 Pulse 76 03/15/21 15:23 Resp 20 03/15/21 15:23 BP 142/68 H 03/15/21 15:23 Pulse Ox 98 03/15/21 15:23 Body Mass Index 31.9 Const: General: comfortable and no acute distress Resp: Effort & Inspection: normal respiratory effort Cardio: Rate: regular rate Procedures Date of Service Date of Service: 03/15/21 Progress Note: A&P Assessment and plan (1) Toe ulcer: Status: Acute Assessment and Plan: MRI shows fracture of the proximal phalanx of the 5th toe, with significant soft tissue edema No abscesses noted Explained above to patient No amputation necessary at this time He may continue to need antibiotics however If there is poor healing or worsening of the changes of the 5th toe, revisit option of surgical intervention including amputation I can see him in the office for follow-up visit Fall Risk Details Current Medications: Current Medications Generic Name Dose Route Start Last Admin Trade Name Freq PRN Reason Stop Dose Admin Acetaminophen 650 mg 03/13/21 20:20 Acetaminophen 325 Mg Tablet PO Q6H PRN Pain, Mild (Pain Scale 1-3) Aspirin 81 mg 03/14/21 09:00 03/15/21 08:06 Aspirin Enteric Coated 81 Mg Tablet. PO 81 mg DAILY LIBRADO Administration Dextrose 25 gm 03/13/21 23:18 Dextrose 50 % 25 Gm/50 Ml Vial IVPUSH Q15M PRN per Hypoglycemia Standing Ord. Protocol Docusate Sodium 100 mg 03/13/21 21:00 03/15/21 08:06 Docusate Sodium 100 Mg Capsule PO 100 mg BID LIBRADO Administration Glucose 15 gm 03/13/21 23:18 Glucose Gel 15 Gm Gel..Gram. PO Q15M PRN per Hypoglycemia Standing Ord. Protocol Heparin Sodium (Porcine) 5,000 unit 03/13/21 21:00 03/15/21 08:06 Heparin Sodium,Porcine 5,000 Unit/Ml Vial SUBCUT 5,000 unit Q12H LIBRADO Administration Piperacillin Sod/Tazobactam 50 mls @ 100 mls/hr 03/14/21 03:00 03/15/21 08:47 Sod 3.375 gm/ Sodium Chloride IV Infused Q6H LIBRADO Infusion Vancomycin HCl 750 mg/ Sodium 265 mls @ 265 mls/hr 03/14/21 10:00 03/15/21 13:04 Chloride IV Infused Q12H LIBRADO Infusion Insulin Glargine 42 unit 03/14/21 21:00 03/14/21 20:39 Insulin Glargine,Hum.Rec.Anlog 100 Unit/Ml 10 Ml Vial SUBCUT 42 unit BEDTIME LIBRADO Administration Insulin Human Lispro 20 unit 03/14/21 08:00 03/15/21 11:54 Insulin Lispro 100 Unit/Ml 3 Ml Vial SUBCUT 20 unit TIDWM LIBRADO Administration Insulin Human Lispro 0 unit 03/14/21 07:30 03/15/21 11:54 Insulin Lispro 100 Unit/Ml 3 Ml Vial SUBCUT 2 unit QIDACHS LIBRADO Administration Protocol Lactic Acid 1 appl 03/14/21 09:00 03/15/21 08:07 Ammonium Lactate 12 % Cream 140 Gm Tube TOPICAL 1 appl BID LIBRADO Administration Protocol Methadone HCl 50 mg 03/14/21 09:00 03/15/21 08:06 Methadone Hcl 1 Mg/0.1 Ml Oral.Conc PO 50 mg DAILY LIBRADO Administration Metoprolol Succinate 100 mg 03/14/21 09:00 03/15/21 08:06 Metoprolol Succinate Er 100 Mg Tab.Er.24h PO 100 mg DAILY LIBRADO Administration Protocol Patient Own 1 each 03/14/21 10:15 03/15/21 08:09 Medication ( PO 1 each Emtricitabine/ DAILY LIBRADO Administration Rilpivirine/ Tenofovir {Bryan}) Ondansetron HCl 4 mg 03/13/21 20:20 Ondansetron Hcl 4 Mg/2 Ml Vial IVPUSH Q8H PRN Nausea and Vomiting Pharmacy Consult 1 each 03/13/21 20:20 Consult Rx Vancomycin Dosing MISCELLANE DAILY PRN Consult order Quetiapine Fumarate 100 mg 03/13/21 23:20 03/14/21 20:39 Quetiapine Fumarate 100 Mg Tablet PO 100 mg BEDTIME LIBRADO Administration Senna 8.6 mg 03/15/21 10:30 03/15/21 11:00 Sennosides 8.6 Mg Tablet PO Not Given DAILY LIBRADO Sodium Chloride 3 ml 03/14/21 00:00 03/15/21 08:07 0.9 % Sodium Chloride Flush 3 Ml Syringe IVFLUSH 3 ml QSHIFT LIBRADO Administration Vitamin D 50 mcg 03/14/21 09:00 03/15/21 08:05 Cholecalciferol (Vitamin D3) 25 Mcg Tablet PO 50 mcg DAILY LIBRADO Administration Time Spent With Patient Time: Total time spent is greater than 50% in coordination of care (as documented) at patient's floor/unit and/or counseling patient: Time with patient: 15 - 24 minutes Quality Stroke Does the patient have a stroke diagnosis?: No VTE Prior VTE?: No VTE Risk Level:: Medical - moderate - high VTE Device Contraindication: Treatment Not Indicated VTE Drug Contraindication: N/A - Med Ordered
[2021-03-15 16:18] LABS: Glucose, Whole Blood 152 mg/dL (60-115)
[2021-03-15 19:09] VITALS: BP 167/73; PULSE 73; RESP 20; TEMP 36.2; O2SAT 98
[2021-03-15 19:57] LABS: Glucose, Whole Blood 159 mg/dL (60-115)
[2021-03-15] MEDS: Insulin Glargine,Hum.rec.anlog 100 UNIT/ML 10 ML VIAL 42 UNIT SUBCUT (20:14)
[2021-03-15] MEDS: QUEtiapine Fumarate 100 MG TABLET PO (20:15)
[2021-03-15 23:59] VITALS: BP 160/71; PULSE 79; RESP 16; TEMP 36.4; O2SAT 100
[2021-03-16] VITALS (7 sets, daily range): BP systolic 140–165; BP diastolic 62–80; PULSE 70–88; RESP 15–18; TEMP 35.9–37.3; O2SAT 98–100
[2021-03-16] MEDS: Piperacillin Sodium/Tazobactam 3.375 GM in 0.9 % Sodium Chloride 50 ML IV ×4 (03:54→21:07)
[2021-03-16 06:49] LABS: Anion Gap 12 (12-20); Blood Urea Nitrogen 19 mg/dL (9-16); Calcium 8.1 mg/dL (8.4-10.2); Carbon Dioxide 26 mmol/L (22-29); Chloride 104 mmol/L (96-108); Creatinine Clr Calc Pharmacy 83.8; Estimated Glomerular Filt Rate > 60; Glucose Random 203 mg/dL (60-115); Potassium 3.9 mmol/L (3.3-5.1); Sodium 138 mmol/L (135-145)
[2021-03-16 07:21] LABS: Glucose, Whole Blood 181 mg/dL (60-115)
[2021-03-16] MEDS: Insulin Lispro 100 UNIT/ML 3 ML VIAL 20 UNIT SUBCUT ×3 (07:42→16:43)
[2021-03-16] MEDS: Metoprolol Succinate ER 100 MG TAB.ER.24H PO (07:43)
[2021-03-16] MEDS: 0.9 % Sodium Chloride Flush 3 ML SYRINGE IVFLUSH ×2 (07:43→15:17)
[2021-03-16] MEDS: Heparin Sodium,Porcine 5,000 UNIT/ML VIAL 5000 UNIT SUBCUT ×2 (07:43→21:01)
[2021-03-16] MEDS: Insulin Lispro 100 UNIT/ML 3 ML VIAL SUBCUT ×4 (07:43→21:02)
[2021-03-16] MEDS: Aspirin Enteric Coated 81 MG TABLET.DR PO (07:44)
[2021-03-16] MEDS: Cholecalciferol (Vitamin D3) 25 MCG TABLET 50 MCG PO (07:44)
[2021-03-16] MEDS: Sennosides 8.6 MG TABLET PO (07:44)
[2021-03-16] MEDS: Docusate Sodium 100 MG CAPSULE PO ×2 (07:44→21:01)
[2021-03-16] MEDS: Ammonium Lactate 12 % Cream 140 GM TUBE 1 APPL TOPICAL (07:46)
[2021-03-16] MEDS: vancomycin HCL 750 MG in 0.9 % Sodium Chloride 250 ML 265 MG IV ×2 (10:12→22:19)
--- NOTE | 2021-03-16 10:58 | HO.PM.IMPN ---
Subjective Subjective Date of Service: 03/16/21 Interval History: the patient was seen and evaluated this morning Laying in bed, complaining of pain in his right foot Pain has improved Denies any fever, chills or shortness of breath No reported other overnight events. Systemic review: No fever, chills or weakness No chest pain, palpitation No shortness of breath or coughing No abdominal pain, nausea or vomiting No urinary symptoms Fifth toe blackish discoloration with pain Physical Exam Vital Signs: Vital Signs: Last Vital Signs Temp 96.6 F L 03/16/21 08:00 Pulse 74 03/16/21 08:00 Resp 18 03/16/21 08:00 BP 156/70 H 03/16/21 08:00 Pulse Ox 100 03/16/21 08:00 Body Mass Index 31.9 Const: Other: Constitutional : Alert, oriented, not in distress Neck : Normal inspection, Supple Cardiovascular : RRR, S1 S2, no lower extremity edema Respiratory : Good bilateral air entry, no crackles, wheezes or rhonchi Gastrointestinal: soft, lax, Normal bowel sounds, Non tender Skin : Warm, Dry, right 5th toe swollen with surrounding erythema and tenderness to touch Neurological : Alert & oriented x3, No focal deficit Objective Data Current Medications Generic Name Dose Route Start Last Admin Trade Name Freq PRN Reason Stop Dose Admin Acetaminophen 650 mg 03/13/21 20:20 Acetaminophen 325 Mg Tablet PO Q6H PRN Pain, Mild (Pain Scale 1-3) Aspirin 81 mg 03/14/21 09:00 03/16/21 07:44 Aspirin Enteric Coated 81 Mg Tablet.Dr PO 81 mg DAILY LIBRADO Administration Dextrose 25 gm 03/13/21 23:18 Dextrose 50 % 25 Gm/50 Ml Vial IVPUSH Q15M PRN per Hypoglycemia Standing Ord. Protocol Docusate Sodium 100 mg 03/13/21 21:00 03/16/21 07:44 Docusate Sodium 100 Mg Capsule PO 100 mg BID LIBRADO Administration Glucose 15 gm 03/13/21 23:18 Glucose Gel 15 Gm Gel..Gram. PO Q15M PRN per Hypoglycemia Standing Ord. Protocol Heparin Sodium (Porcine) 5,000 unit 03/13/21 21:00 03/16/21 07:43 Heparin Sodium,Porcine 5,000 Unit/Ml Vial SUBCUT 5,000 unit Q12H LIBRADO Administration Piperacillin Sod/Tazobactam 50 mls @ 100 mls/hr 03/14/21 03:00 03/16/21 10:18 Sod 3.375 gm/ Sodium Chloride IV Infused Q6H LIBRADO Infusion Vancomycin HCl 750 mg/ Sodium 265 mls @ 265 mls/hr 03/14/21 10:00 03/16/21 10:12 Chloride IV 265 mls/hr Q12H LIBRADO Administration Insulin Glargine 42 unit 03/14/21 21:00 03/15/21 20:14 Insulin Glargine,Hum.Rec.Anlog 100 Unit/Ml 10 Ml Vial SUBCUT 42 unit BEDTIME LIBRADO Administration Insulin Human Lispro 20 unit 03/14/21 08:00 03/16/21 07:42 Insulin Lispro 100 Unit/Ml 3 Ml Vial SUBCUT 20 unit TIDWM LIBRADO Administration Insulin Human Lispro 0 unit 03/14/21 07:30 03/16/21 07:43 Insulin Lispro 100 Unit/Ml 3 Ml Vial SUBCUT 2 unit QIDACHS LIBRADO Administration Protocol Lactic Acid 1 appl 03/14/21 09:00 03/16/21 07:46 Ammonium Lactate 12 % Cream 140 Gm Tube TOPICAL 1 appl BID LIBRADO Administration Protocol Methadone HCl 50 mg 03/14/21 09:00 03/16/21 07:44 Methadone Hcl 1 Mg/0.1 Ml Oral.Conc PO 50 mg DAILY LIBRADO Administration Metoprolol Succinate 100 mg 03/14/21 09:00 03/16/21 07:43 Metoprolol Succinate Er 100 Mg Tab.Er.24h PO 100 mg DAILY LIBRADO Administration Protocol Patient Own 1 each 03/14/21 10:15 03/16/21 09:31 Medication ( PO 1 each Emtricitabine/ DAILY LIBRADO Administration Rilpivirine/ Tenofovir {Odefsey}) Ondansetron HCl 4 mg 03/13/21 20:20 Ondansetron Hcl 4 Mg/2 Ml Vial IVPUSH Q8H PRN Nausea and Vomiting Pharmacy Consult 1 each 03/13/21 20:20 Consult Rx Vancomycin Dosing MISCELLANE DAILY PRN Consult order Quetiapine Fumarate 100 mg 03/13/21 23:20 03/15/21 20:15 Quetiapine Fumarate 100 Mg Tablet PO 100 mg BEDTIME LIBRADO Administration Senna 8.6 mg 03/15/21 10:30 03/16/21 07:44 Sennosides 8.6 Mg Tablet PO 8.6 mg DAILY LIBRADO Administration Sodium Chloride 3 ml 03/14/21 00:00 03/16/21 07:43 0.9 % Sodium Chloride Flush 3 Ml Syringe IVFLUSH 3 ml QSHIFT LIBRADO Administration Vitamin D 50 mcg 03/14/21 09:00 03/16/21 07:44 Cholecalciferol (Vitamin D3) 25 Mcg Tablet PO 50 mcg DAILY LIBRADO Administration Labs CBC & Chem 7: 03/15/21 05:44 03/16/21 05:40 Labs: Laboratory Results - last 24 hr 03/15/21 03/15/21 03/15/21 07:54 11:26 16:05 Anion Gap Estim Creat Clear Calc Estimated GFR POC Glucose 154 H 152 H Random Glucose Calcium Vancomycin Trough 10.2 03/15/21 03/16/21 03/16/21 19:51 05:40 07:17 Anion Gap 12 Estim Creat Clear Calc 83.8 Estimated GFR > 60 POC Glucose 159 H 181 H Random Glucose 203 H Calcium 8.1 L Vancomycin Trough Microbiology Microbiology Results: Microbiology 03/13/21 18:43 Blood Culture - Preliminary Blood - Venous No growth after 48 hours. 03/13/21 18:37 Blood Culture - Preliminary Blood - Venous No growth after 48 hours. Assessment and Plan (1) Osteomyelitis: Status: Acute (2) Toe ulcer: Status: Acute (3) Right leg swelling: Status: Acute Assessment and Plan: 55-year-old male with history of diabetes, osteomyelitis who presents with a nonhealing right foot 5th toe wound. # nonhealing wound,/diabetic foot ulcer # suspected osteomyelitis elevated ESR and CRP The MRI concerning for possible 5th toe osteomyelitis with a fracture Continue broad-spectrum antibiotics follow cultures To place PICC line and for treatment with 6 weeks with ertapenem # PAD Doppler ultrasound LE showing significant stenosis bilaterally in the lower extremities Pending Vascular surgery evaluation # COLT Improving Discontinue IV fluids hold any nephrotoxic meds # right leg swelling secondary to toe infection but will rule out DVT Negative Doppler # diabetes continue home insulin diabetic diet low-dose sliding scale insulin # HIV continue home medication # hypertension will hold hydrochlorothiazide in the setting of COLT hold furosemide DVT prophylaxis heparin subQ Quality Stroke Does the patient have a stroke diagnosis?: No VTE Prior VTE?: No VTE Risk Level:: Medical - moderate - high VTE Device Contraindication: Treatment Not Indicated VTE Drug Contraindication: N/A - Med Ordered
[2021-03-16 11:19] LABS: Glucose, Whole Blood 168 mg/dL (60-115)
--- NOTE | 2021-03-16 11:47 | PM.PNGS ---
Subjective Subjective Date of Service: 03/16/21 Interval history: No new complaints Physical Exam Vital Signs: Vital Signs: Last Vital Signs Temp 96.6 F L 03/16/21 08:00 Pulse 74 03/16/21 08:00 Resp 18 03/16/21 08:00 BP 156/70 H 03/16/21 08:00 Pulse Ox 100 03/16/21 08:00 Body Mass Index 31.9 Const: General: cooperative, no acute distress and awake Extrem: Other: Right foot-slight decrease in erythema 5th toe and adjacent distal foot. Areas of eschar dorsum of 5th toe. Procedures Date of Service Date of Service: 03/16/21 Progress Note: A&P Assessment and plan (1) Toe ulcer: Status: Acute (2) Osteomyelitis: Status: Acute (3) Right leg swelling: Status: Acute Assessment and Plan: Recent onset ulcer right 5th toe with fracture and possible osteomyelitis, cellulitis. Cellulitis appears improved. Arterial duplex studies done yesterday suggest the presence of significant arterial disease. ABIs not done. Discussed results with the patient and his sister. May benefit from vascular intervention. Awaiting assessment with Dr. Billings, anticipated 03/18/2021. On vancomycin and Zosyn. Per Dr. Del Castillo, 6 weeks of IV antibiotics advisable as presence of osteomyelitis is likely. Fall Risk Details Current Medications: Current Medications Generic Name Dose Route Start Last Admin Trade Name Freq PRN Reason Stop Dose Admin Acetaminophen 650 mg 03/13/21 20:20 Acetaminophen 325 Mg Tablet PO Q6H PRN Pain, Mild (Pain Scale 1-3) Aspirin 81 mg 03/14/21 09:00 03/16/21 07:44 Aspirin Enteric Coated 81 Mg Tablet. PO 81 mg DAILY LIBRADO Administration Dextrose 25 gm 03/13/21 23:18 Dextrose 50 % 25 Gm/50 Ml Vial IVPUSH Q15M PRN per Hypoglycemia Standing Ord. Protocol Docusate Sodium 100 mg 03/13/21 21:00 03/16/21 07:44 Docusate Sodium 100 Mg Capsule PO 100 mg BID LIBRADO Administration Glucose 15 gm 03/13/21 23:18 Glucose Gel 15 Gm Gel..Gram. PO Q15M PRN per Hypoglycemia Standing Ord. Protocol Heparin Sodium (Porcine) 5,000 unit 03/13/21 21:00 03/16/21 07:43 Heparin Sodium,Porcine 5,000 Unit/Ml Vial SUBCUT 5,000 unit Q12H LIBRADO Administration Piperacillin Sod/Tazobactam 50 mls @ 100 mls/hr 03/14/21 03:00 03/16/21 10:18 Sod 3.375 gm/ Sodium Chloride IV Infused Q6H LIB[facility]O Infusion Vancomycin HCl 750 mg/ Sodium 265 mls @ 265 mls/hr 03/14/21 10:00 03/16/21 11:22 Chloride IV Infused Q12H [facility]O Infusion Insulin Glargine 42 unit 03/14/21 21:00 03/15/21 20:14 Insulin Glargine,Hum.Rec.Anlog 100 Unit/Ml 10 Ml Vial SUBCUT 42 unit BEDTIME LIBRADO Administration Insulin Human Lispro 20 unit 03/14/21 08:00 03/16/21 07:42 Insulin Lispro 100 Unit/Ml 3 Ml Vial SUBCUT 20 unit TIDWM LIBRADO Administration Insulin Human Lispro 0 unit 03/14/21 07:30 03/16/21 07:43 Insulin Lispro 100 Unit/Ml 3 Ml Vial SUBCUT 2 unit QIDACHS [facility]RADO Administration Protocol Lactic Acid 1 appl 03/14/21 09:00 03/16/21 07:46 Ammonium Lactate 12 % Cream 140 Gm Tube TOPICAL 1 appl BID LIBRADO Administration Protocol Methadone HCl 50 mg 03/14/21 09:00 03/16/21 07:44 Methadone Hcl 1 Mg/0.1 Ml Oral.Conc PO 50 mg DAILY LIBRADO Administration Metoprolol Succinate 100 mg 03/14/21 09:00 03/16/21 07:43 Metoprolol Succinate Er 100 Mg Tab.Er.24h PO 100 mg DAILY LIBRADO Administration Protocol Patient Own 1 each 03/14/21 10:15 03/16/21 09:31 Medication ( PO 1 each Emtricitabine/ DAILY LIBRADO Administration Rilpivirine/ Tenofovir {Sydneyefsey}) Ondansetron HCl 4 mg 03/13/21 20:20 Ondansetron Hcl 4 Mg/2 Ml Vial IVPUSH Q8H PRN Nausea and Vomiting Pharmacy Consult 1 each 03/13/21 20:20 Consult Rx Vancomycin Dosing MISCELLANE DAILY PRN Consult order Quetiapine Fumarate 100 mg 03/13/21 23:20 03/15/21 20:15 Quetiapine Fumarate 100 Mg Tablet PO 100 mg BEDTIME LIBRADO Administration Senna 8.6 mg 03/15/21 10:30 03/16/21 07:44 Sennosides 8.6 Mg Tablet PO 8.6 mg DAILY LIBRADO Administration Sodium Chloride 3 ml 03/14/21 00:00 03/16/21 07:43 0.9 % Sodium Chloride Flush 3 Ml Syringe IVFLUSH 3 ml QSHIFT [facility] Administration Vitamin D 50 mcg 03/14/21 09:00 03/16/21 07:44 Cholecalciferol (Vitamin D3) 25 Mcg Tablet PO 50 mcg DAILY LIBRADO Administration Time Spent With Patient Time: Total time spent is greater than 50% in coordination of care (as documented) at patient's floor/unit and/or counseling patient: Time with patient: 15 - 24 minutes Quality Stroke Does the patient have a stroke diagnosis?: No VTE Prior VTE?: No VTE Risk Level:: Medical - moderate - high VTE Device Contraindication: Treatment Not Indicated VTE Drug Contraindication: N/A - Med Ordered
[2021-03-16 16:19] LABS: Glucose, Whole Blood 160 mg/dL (60-115)
[2021-03-16 20:28] LABS: Glucose, Whole Blood 222 mg/dL (60-115)
[2021-03-16] MEDS: QUEtiapine Fumarate 100 MG TABLET PO (21:01)
[2021-03-16] MEDS: Insulin Glargine,Hum.rec.anlog 100 UNIT/ML 10 ML VIAL 42 UNIT SUBCUT (21:01)
[2021-03-16 21:52] LABS: Vancomycin Trough 11.3 mcg/mL (10.0-20.0)
[2021-03-17] VITALS (8 sets, daily range): BP systolic 143–174; BP diastolic 65–78; PULSE 70–81; RESP 16–19; TEMP 36.2–37.2; O2SAT 97–100
[2021-03-17] MEDS: Piperacillin Sodium/Tazobactam 3.375 GM in 0.9 % Sodium Chloride 50 ML IV ×4 (03:23→20:39)
[2021-03-17 07:27] LABS: Glucose, Whole Blood 155 mg/dL (60-115)
[2021-03-17] MEDS: Insulin Lispro 100 UNIT/ML 3 ML VIAL SUBCUT ×2 (07:39→20:41)
[2021-03-17] MEDS: Insulin Lispro 100 UNIT/ML 3 ML VIAL 20 UNIT SUBCUT ×3 (07:39→16:25)
[2021-03-17] MEDS: 0.9 % Sodium Chloride Flush 3 ML SYRINGE IVFLUSH ×2 (07:39→14:53)
[2021-03-17] MEDS: Sennosides 8.6 MG TABLET PO (08:54)
[2021-03-17] MEDS: Cholecalciferol (Vitamin D3) 25 MCG TABLET 50 MCG PO (08:54)
[2021-03-17] MEDS: Heparin Sodium,Porcine 5,000 UNIT/ML VIAL 5000 UNIT SUBCUT ×2 (08:54→20:40)
[2021-03-17] MEDS: Metoprolol Succinate ER 100 MG TAB.ER.24H PO (08:54)
[2021-03-17] MEDS: Docusate Sodium 100 MG CAPSULE PO ×2 (08:54→20:40)
[2021-03-17] MEDS: amLODIPine Besylate 5 MG TABLET PO (08:55)
[2021-03-17] MEDS: Aspirin Enteric Coated 81 MG TABLET.DR PO (08:55)
[2021-03-17] MEDS: Ammonium Lactate 12 % Cream 140 GM TUBE 1 APPL TOPICAL ×2 (08:55→20:45)
[2021-03-17] MEDS: vancomycin HCL 750 MG in 0.9 % Sodium Chloride 250 ML 265 MG IV ×2 (09:35→22:07)
[2021-03-17 11:25] LABS: Glucose, Whole Blood 149 mg/dL (60-115)
--- NOTE | 2021-03-17 11:48 | HO.PM.IMPN ---
Subjective Subjective Date of Service: 03/17/21 Interval History: the patient was seen and evaluated this morning Laying in bed, complaining of pain in his right foot Pain has improved Denies any fever, chills or shortness of breath No reported other overnight events. Systemic review: No fever, chills or weakness No chest pain, palpitation No shortness of breath or coughing No abdominal pain, nausea or vomiting No urinary symptoms Fifth toe blackish discoloration with pain Physical Exam Vital Signs: Vital Signs: Last Vital Signs Temp 97.1 F 03/17/21 11:03 Pulse 75 03/17/21 11:03 Resp 16 03/17/21 11:03 BP 162/70 H 03/17/21 11:03 Pulse Ox 99 03/17/21 11:03 Body Mass Index 31.9 Const: Other: Constitutional : Alert, oriented, not in distress Neck : Normal inspection, Supple Cardiovascular : RRR, S1 S2, no lower extremity edema Respiratory : Good bilateral air entry, no crackles, wheezes or rhonchi Gastrointestinal: soft, lax, Normal bowel sounds, Non tender Skin : Warm, Dry, right 5th toe swollen with surrounding erythema and tenderness to touch Neurological : Alert & oriented x3, No focal deficit Objective Data Current Medications Generic Name Dose Route Start Last Admin Trade Name Freq PRN Reason Stop Dose Admin Acetaminophen 650 mg 03/13/21 20:20 Acetaminophen 325 Mg Tablet PO Q6H PRN Pain, Mild (Pain Scale 1-3) Amlodipine Besylate 5 mg 03/17/21 09:00 03/17/21 08:55 Amlodipine Besylate 5 Mg Tablet PO 5 mg DAILY LIBRADO Administration Protocol Aspirin 81 mg 03/14/21 09:00 03/17/21 08:55 Aspirin Enteric Coated 81 Mg Tablet.Dr PO 81 mg DAILY [facility]O Administration Dextrose 25 gm 03/13/21 23:18 Dextrose 50 % 25 Gm/50 Ml Vial IVPUSH Q15M PRN per Hypoglycemia Standing Ord. Protocol Docusate Sodium 100 mg 03/13/21 21:00 03/17/21 08:54 Docusate Sodium 100 Mg Capsule PO 100 mg BID [facility]RADO Administration Glucose 15 gm 03/13/21 23:18 Glucose Gel 15 Gm Gel..Gram. PO Q15M PRN per Hypoglycemia Standing Ord. Protocol Heparin Sodium (Porcine) 5,000 unit 03/13/21 21:00 03/17/21 08:54 Heparin Sodium,Porcine 5,000 Unit/Ml Vial SUBCUT 5,000 unit Q12H [facility]O Administration Piperacillin Sod/Tazobactam 50 mls @ 100 mls/hr 03/14/21 03:00 03/17/21 09:35 Sod 3.375 gm/ Sodium Chloride IV Infused Q6H [facility]O Infusion Vancomycin HCl 750 mg/ Sodium 265 mls @ 265 mls/hr 03/14/21 10:00 03/17/21 11:01 Chloride IV Infused Q12H [facility]O Infusion Insulin Glargine 42 unit 03/14/21 21:00 03/16/21 21:01 Insulin Glargine,Hum.Rec.Anlog 100 Unit/Ml 10 Ml Vial SUBCUT 42 unit BEDTIME [facility]O Administration Insulin Human Lispro 20 unit 03/14/21 08:00 03/17/21 11:27 Insulin Lispro 100 Unit/Ml 3 Ml Vial SUBCUT 20 unit TIDWM [facility] Administration Insulin Human Lispro 0 unit 03/14/21 07:30 03/17/21 11:26 Insulin Lispro 100 Unit/Ml 3 Ml Vial SUBCUT Not Given QIDACHS [facility] Protocol Lactic Acid 1 appl 03/14/21 09:00 03/17/21 08:55 Ammonium Lactate 12 % Cream 140 Gm Tube TOPICAL 1 appl BID LIBRADO Administration Protocol Methadone HCl 50 mg 03/14/21 09:00 03/17/21 08:54 Methadone Hcl 1 Mg/0.1 Ml Oral.Conc PO 50 mg DAILY [facility] Administration Metoprolol Succinate 100 mg 03/14/21 09:00 03/17/21 08:54 Metoprolol Succinate Er 100 Mg Tab.Er.24h PO 100 mg DAILY [facility] Administration Protocol Patient Own 1 each 03/14/21 10:15 03/17/21 08:55 Medication ( PO 1 each Emtricitabine/ DAILY [facility] Administration Rilpivirine/ Tenofovir {Odefsey}) Ondansetron HCl 4 mg 03/13/21 20:20 Ondansetron Hcl 4 Mg/2 Ml Vial IVPUSH Q8H PRN Nausea and Vomiting Pharmacy Consult 1 each 03/13/21 20:20 Consult Rx Vancomycin Dosing MISCELLANE DAILY PRN Consult order Quetiapine Fumarate 100 mg 03/13/21 23:20 03/16/21 21:01 Quetiapine Fumarate 100 Mg Tablet PO 100 mg BEDTIME [facility] Administration Senna 8.6 mg 03/15/21 10:30 03/17/21 08:54 Sennosides 8.6 Mg Tablet PO 8.6 mg DAILY [facility] Administration Sodium Chloride 3 ml 03/14/21 00:00 03/17/21 07:39 0.9 % Sodium Chloride Flush 3 Ml Syringe IVFLUSH 3 ml QSHIFT [facility] Administration Vitamin D 50 mcg 03/14/21 09:00 03/17/21 08:54 Cholecalciferol (Vitamin D3) 25 Mcg Tablet PO 50 mcg DAILY [facility] Administration Labs CBC & Chem 7: 03/15/21 05:44 03/16/21 05:40 Labs: Laboratory Results - last 24 hr 03/16/21 03/16/21 03/16/21 16:14 20:24 21:05 POC Glucose 160 H 222 H Vancomycin Trough 11.3 03/17/21 03/17/21 07:08 10:58 POC Glucose 155 H 149 H Vancomycin Trough Assessment and Plan (1) Osteomyelitis: Status: Acute (2) Toe ulcer: Status: Acute (3) Right leg swelling: Status: Acute Assessment and Plan: 55-year-old male with history of diabetes, osteomyelitis who presents with a nonhealing right foot 5th toe wound. # nonhealing wound,/diabetic foot ulcer # suspected osteomyelitis elevated ESR and CRP The MRI concerning for possible 5th toe osteomyelitis with a fracture Continue broad-spectrum antibiotics follow cultures To place PICC line and for treatment with 6 weeks with ertapenem # PAD Doppler ultrasound LE showing significant stenosis bilaterally in the lower extremities Pending Vascular surgery evaluation # COLT Improved hold any nephrotoxic meds # right leg swelling secondary to toe infection but will rule out DVT Negative Doppler # diabetes continue home insulin diabetic diet low-dose sliding scale insulin # HIV continue home medication # hypertension will hold hydrochlorothiazide in the setting of COLT hold furosemide DVT prophylaxis heparin subQ Quality Stroke Does the patient have a stroke diagnosis?: No VTE Prior VTE?: No VTE Risk Level:: Medical - moderate - high VTE Device Contraindication: Treatment Not Indicated VTE Drug Contraindication: N/A - Med Ordered
[2021-03-17 16:18] LABS: Glucose, Whole Blood 129 mg/dL (60-115)
[2021-03-17 20:28] LABS: Glucose, Whole Blood 211 mg/dL (60-115)
[2021-03-17] MEDS: Insulin Glargine,Hum.rec.anlog 100 UNIT/ML 10 ML VIAL 42 UNIT SUBCUT (20:40)
[2021-03-17] MEDS: QUEtiapine Fumarate 100 MG TABLET PO (20:40)
[2021-03-18] VITALS (8 sets, daily range): BP systolic 147–176; BP diastolic 65–79; PULSE 72–83; RESP 16–18; TEMP 36.2–36.9; O2SAT 97–100
[2021-03-18] MEDS: Piperacillin Sodium/Tazobactam 3.375 GM in 0.9 % Sodium Chloride 50 ML IV ×4 (03:36→21:23)
--- NOTE | 2021-03-18 06:17 | P.HPHOSP_ITS ---
Review of Systems Constitutional: Constitutional: Denies chills, Denies fatigue, Denies fever(s), Denies headache(s), Denies weakness and Denies weight loss Eyes: Eyes: Denies blurry vision, Denies change in vision, Denies diplopia and Denies loss of vision ENT: Denies dysphagia, Denies vertigo, Denies dizziness, Denies headache(s), Denies hearing loss, Denies lip swelling and Denies sore throat Cardiovascular: Cardiovascular: Denies chest pain, Denies leg edema, Denies lightheadedness, Denies palpitations and Denies dyspnea Respiratory: Respiratory: Denies no additional respiratory complaints, Denies cough, Denies dyspnea and Denies wheezing Gastrointestinal: Gastrointestinal: Denies coffee ground emesis, Denies constipation, Denies dysphagia, Denies diarrhea, Denies nausea and Denies vomiting Genitourinary: Genitourinary: Denies dysuria Musculoskeletal: Musculoskeletal: Denies arthralgias, Denies muscle weakness, Denies numbness and Denies tingling Integumentary/Breasts: Skin/Breast: Denies bleeding lesions, Denies new lesions and Denies rash Neurologic: Denies vertigo, Denies dizziness, Denies headache(s), Denies loss of vision, Denies numbness, Denies tingling and Denies weakness Psychiatric: Psychiatric: Denies anxiety and Denies depression Endocrine: Endocrine: Denies cold intolerance, Denies fatigue, Denies heat intolerance and Denies palpitations Hematologic/Lymphatic: Hematologic/Lymphatic: Denies easy bleeding, Denies easy bruising and Denies lymphadenopathy Allergic/Immunologic: Allergic/Immunologic: Denies lip swelling and Denies wheezing [facility] Medical History Cirrhosis COVID-19 vaccine administered Depression Diabetes GERD (gastroesophageal reflux disease) Hepatitis History of hyperbaric oxygen therapy HIV (human immunodeficiency virus infection) Hx of drug dependence Hyperlipidemia Hypertension Osteomyelitis Toe ulcer Family History Father Diabetes HTN (hypertension) Mother HTN (hypertension) Daughter No problems noted. Family history: reviewed and not pertinent Surgical History H/O skin graft S/P angiogram of extremity Status post debridement Social History Household Members: Family Housing: House Are you a primary pet care worker to a significant other at home: No Do you presently have visiting nurse or other home services: Yes Alcohol intake: never Patient Tobacco Use Status: Current everyday Tobacco user Tobacco use type: Cigarette Cigarette Packs Per Day: 0 Cigarettes Per Day: 4 Years Smoked: 40 e-Cigarette/Vaping Use: Never Used Second Hand Smoke Exposure: No Substance Use Type: Former Substance User and Heroin Advance Directives Date on File: 03/13/21 service: No Current occupational status: disabled Meds Allergies Allergy/AdvReac Type Severity Reaction Status Date / Time trazodone [TRAZODONE] Allergy Unknown UNKNOWN Verified 12/04/20 09:37 Active Medications: Current Medications Generic Name Dose Route Start Last Admin Trade Name Freq PRN Reason Stop Dose Admin Acetaminophen 650 mg 03/13/21 20:20 Acetaminophen 325 Mg Tablet PO Q6H PRN Pain, Mild (Pain Scale 1-3) Amlodipine Besylate 5 mg 03/17/21 09:00 03/17/21 08:55 Amlodipine Besylate 5 Mg Tablet PO 5 mg DAILY [facility]RADO Administration Protocol Aspirin 81 mg 03/14/21 09:00 03/17/21 08:55 Aspirin Enteric Coated 81 Mg Tablet. PO 81 mg DAILY [facility]RADO Administration Dextrose 25 gm 03/13/21 23:18 Dextrose 50 % 25 Gm/50 Ml Vial IVPUSH Q15M PRN per Hypoglycemia Standing Ord. Protocol Docusate Sodium 100 mg 03/13/21 21:00 03/17/21 20:40 Docusate Sodium 100 Mg Capsule PO 100 mg BID LIBRADO Administration Glucose 15 gm 03/13/21 23:18 Glucose Gel 15 Gm Gel..Gram. PO Q15M PRN per Hypoglycemia Standing Ord. Protocol Heparin Sodium (Porcine) 5,000 unit 03/13/21 21:00 03/17/21 20:40 Heparin Sodium,Porcine 5,000 Unit/Ml Vial SUBCUT 5,000 unit Q12H [facility]O Administration Piperacillin Sod/Tazobactam 50 mls @ 100 mls/hr 03/14/21 03:00 03/18/21 04:15 Sod 3.375 gm/ Sodium Chloride IV Infused Q6H [facility] Infusion Vancomycin HCl 750 mg/ Sodium 265 mls @ 265 mls/hr 03/14/21 10:00 03/17/21 23:18 Chloride IV Infused Q12H [facility] Infusion Insulin Glargine 42 unit 03/14/21 21:00 03/17/21 20:40 Insulin Glargine,Hum.Rec.Anlog 100 Unit/Ml 10 Ml Vial SUBCUT 42 unit BEDTIME [facility]RADO Administration Insulin Human Lispro 20 unit 03/14/21 08:00 03/17/21 16:25 Insulin Lispro 100 Unit/Ml 3 Ml Vial SUBCUT 20 unit TIDWM [facility] Administration Insulin Human Lispro 0 unit 03/14/21 07:30 03/17/21 20:41 Insulin Lispro 100 Unit/Ml 3 Ml Vial SUBCUT 4 unit QIDACHS [facility] Administration Protocol Lactic Acid 1 appl 03/14/21 09:00 03/17/21 20:45 Ammonium Lactate 12 % Cream 140 Gm Tube TOPICAL 1 appl BID LIBRADO Administration Protocol Methadone HCl 50 mg 03/14/21 09:00 03/17/21 08:54 Methadone Hcl 1 Mg/0.1 Ml Oral.Conc PO 50 mg DAILY [facility]RADO Administration Metoprolol Succinate 100 mg 03/14/21 09:00 03/17/21 08:54 Metoprolol Succinate Er 100 Mg Tab.Er.24h PO 100 mg DAILY [facility]RADO Administration Protocol Patient Own 1 each 03/14/21 10:15 03/17/21 08:55 Medication ( PO 1 each Emtricitabine/ DAILY LIBRADO Administration Rilpivirine/ Tenofovir {Odefsey}) Ondansetron HCl 4 mg 03/13/21 20:20 Ondansetron Hcl 4 Mg/2 Ml Vial IVPUSH Q8H PRN Nausea and Vomiting Pharmacy Consult 1 each 03/13/21 20:20 Consult Rx Vancomycin Dosing MISCELLANE DAILY PRN Consult order Quetiapine Fumarate 100 mg 03/13/21 23:20 03/17/21 20:40 Quetiapine Fumarate 100 Mg Tablet PO 100 mg BEDTIME [facility]RADO Administration Senna 8.6 mg 03/15/21 10:30 03/17/21 08:54 Sennosides 8.6 Mg Tablet PO 8.6 mg DAILY [facility] Administration Sodium Chloride 3 ml 03/14/21 00:00 03/18/21 01:36 0.9 % Sodium Chloride Flush 3 Ml Syringe IVFLUSH Not Given QSHIFT [facility] Vitamin D 50 mcg 03/14/21 09:00 03/17/21 08:54 Cholecalciferol (Vitamin D3) 25 Mcg Tablet PO 50 mcg DAILY [facility] Administration Home Medications Medication Instructions Recorded Confirmed Last Taken Type ammonium lactate 12 % topical cream 1 appl TOPICAL BID 08/08/20 03/13/21 Unknown History aspirin 81 mg tablet,delayed 81 mg PO DAILY 08/08/20 03/13/21 Unknown History release blood sugar diagnostic #10 ea 08/08/20 10/16/20 Unknown History cholecalciferol (vitamin D3) 50 50 mcg PO DAILY 08/08/20 03/13/21 Unknown History mcg (2,000 unit) tablet dulaglutide 1.5 mg/0.5 mL 1.5 mg SUBCUT QWEEK 08/08/20 03/13/21 Unknown History subcutaneous pen injector furosemide 20 mg tablet 20 mg PO DAILY PRN 08/08/20 03/13/21 Unknown History hydrochlorothiazide 25 mg tablet 25 mg PO DAILY 08/08/20 03/13/21 Unknown History insulin syringe-needle U-100 1 mL #10 ea 08/08/20 10/16/20 Unknown History 29 gauge x 1/2 metoprolol succinate 100 mg 100 mg PO DAILY 08/08/20 03/13/21 11/14/20 09:30 H istory tablet,extended release 24 hr quetiapine 100 mg tablet 100 mg PO BEDTIME 08/08/20 03/13/21 Unknown History lancets 33 gauge #100 ea 11/08/20 Unknown History metformin 500 mg tablet,extended 1,000 mg PO DAILY 11/08/20 12/05/20 Unknown History release 24 hr pen needle, diabetic 32 gauge x #50 ea 11/08/20 Unknown History methadone 10 mg/mL oral concentrate 50 mg PO DAILY 11/12/20 03/13/21 11/14/20 09:30 History emtricitabine 200 mg-rilpivirine 1 tab PO DAILY 12/05/20 03/13/21 Unknown History 25 mg-tenofovir alafenam 25 mg tablet (Odefsey) insulin aspart U-100 100 unit/mL 20 unit SUBCUT TIDWM 12/05/20 03/13/21 Unknown History (3 mL) subcutaneous pen (Novolog Flexpen U-100 Insulin aspart) insulin degludec 100 unit/mL (3 60 unit SUBCUT DAILY 12/05/20 03/13/21 Unknown History mL) subcutaneous pen (Tresiba FlexTouch U-100 insulin) Physical Exam Vital Signs and Narrative: Vital Signs: Last Vital Signs Temp 97.8 F 03/18/21 03:58 Pulse 73 03/18/21 03:58 Resp 16 03/18/21 03:58 BP 164/72 H 03/18/21 03:58 Pulse Ox 100 03/18/21 03:58 Body Mass Index 31.9 Const: General: no acute distress, well developed and alert HENMT: Face and sinus: Yes normal facial exam and Yes face symmetric Mouth: Normal oral and palatal mucosa present and moist mucous membranes Throat: Yes posterior oropharynx normal and Yes tonsils normal Eyes: General: appearance normal, both eyes and all related structures Alignment and Position: alignment normal and position normal Sclerae: sclerae normal Pupils: Equal, round and reactive pupils present EOM: EOMs intact bilaterally Neck: Yes normal visual inspection, Yes full ROM and Yes no lymphadenopathy Lymphatic: no lymphadenopathy noted Chest: Chest palpation & inspection: normal inspection of the chest, no tenderness and No rash Resp: Effort & Inspection: normal respiratory effort and able to speak in complete sentences Auscultation: clear to auscultation bilaterally, no crackles, no rales, no rhonchi and no wheezes Cardio: Rate: regular rate Rhythm: regular rhythm Heart sounds: S1 normal heart sound present, S2 normal heart sound present, no murmurs and no rubs GI: Inspection: No distended Palpation (GI): Soft to palpation and nontender Percussion: No tympanic to percussion Auscultation: normal bowel sounds Skin: Rashes: no rashes Trauma: no lacerations or abrasions Wounds: no wounds Neuro: Cranial nerves: Yes CN's II-XII intact bilaterally, Yes Equal, round and reactive pupils present and Yes Bilaterally intact EOM present Extrem: General: Yes full ROM and Yes no pedal edema Psych: Appearance: grossly normal Mental Status: mental status grossly normal Speech and movement: Normal speech and movement present Affect: normal affect Thought process: Normal thought process present Results Labs CBC and Chem 7: 03/15/21 05:44 03/16/21 05:40 Labs: Laboratory Results - last 24 hr 03/17/21 03/17/2121 07:08 10:58 16:13 POC Glucose 155 H 149 H 129 H 03/17/21 20:22 POC Glucose 211 H Quality Stroke Does the patient have a stroke diagnosis?: No VTE Prior VTE?: No VTE Risk Level:: Medical - moderate - high VTE Device Contraindication: Treatment Not Indicated VTE Drug Contraindication: N/A - Med Ordered
[2021-03-18 06:33] LABS: Anion Gap 14 (12-20); Blood Urea Nitrogen 15 mg/dL (9-16); Calcium 8.2 mg/dL (8.4-10.2); Carbon Dioxide 26 mmol/L (22-29); Chloride 105 mmol/L (96-108); Creatinine Clr Calc Pharmacy 89.6; Estimated Glomerular Filt Rate > 60; Glucose Random 202 mg/dL (60-115); Sodium 141 mmol/L (135-145)
[2021-03-18 07:35] LABS: Glucose, Whole Blood 180 mg/dL (60-115)
[2021-03-18] MEDS: Insulin Lispro 100 UNIT/ML 3 ML VIAL SUBCUT ×3 (07:38→21:28)
[2021-03-18] MEDS: Insulin Lispro 100 UNIT/ML 3 ML VIAL 20 UNIT SUBCUT ×3 (07:38→16:50)
[2021-03-18] MEDS: Heparin Sodium,Porcine 5,000 UNIT/ML VIAL 5000 UNIT SUBCUT ×2 (08:37→21:27)
[2021-03-18] MEDS: Aspirin Enteric Coated 81 MG TABLET.DR PO (08:38)
[2021-03-18] MEDS: amLODIPine Besylate 5 MG TABLET PO ×2 (08:38→10:36)
[2021-03-18] MEDS: Cholecalciferol (Vitamin D3) 25 MCG TABLET 50 MCG PO (08:38)
[2021-03-18] MEDS: 0.9 % Sodium Chloride Flush 3 ML SYRINGE IVFLUSH ×3 (08:38→21:37)
[2021-03-18] MEDS: Sennosides 8.6 MG TABLET PO (08:38)
[2021-03-18] MEDS: Ammonium Lactate 12 % Cream 140 GM TUBE 1 APPL TOPICAL ×2 (08:38→21:36)
[2021-03-18] MEDS: Docusate Sodium 100 MG CAPSULE PO ×2 (08:38→21:27)
[2021-03-18] MEDS: Metoprolol Succinate ER 100 MG TAB.ER.24H PO (08:38)
[2021-03-18 09:38] LABS: Estimated Glomerular Filt Rate > 60
[2021-03-18 09:44] LABS: Vancomycin Trough 9.6 mcg/mL (10.0-20.0)
--- NOTE | 2021-03-18 10:03 | P.PICC_ITS ---
[facility] Diagnosis: NONHEALING R FOOT DIABETIC ULCER, SUSPECTED OSTEOMYELITIS Indication: PALLET RECTIFIER IV ANTIBIOTICS Pertinent Labs: REVIEWED Technique: Following informed consent including risks, benefits and alternatives and using sterile technique including cap and mask, sterile gown, glove and drape, the RIGHT arm was prepped and draped in the usual sterile fashion of full barrier technique with CHG. Following completion of [place] Protocol the skin and soft tissues were anesthetized with 1% Lidocaine plain. Using ultrasound gu idance, CEPHALIC vein access was obtained IN SINGLE ATTEMPT BY THIS RN. Over an 0.018 wire through peel-away sheath, a 4-YI, SINGLE LUMEN, PASV PICC line was positioned. Catheter length is 39 CM internal length, 1 CM external length, for a total trimmed length of 40 CM. The procedure was performed in [facility]. Tip verification was performed by Samra Murray with [place]lock 3CG. Tip located in SVC. Ultrasound was used to document vein patency and for needle entry. A formal ultrasound picture and cardiac rhythm strip was recorded. V[employer] Instrument Shop Supervisor has released the line for use and it is currently dressed with a StatLock, Tegaderm, and CHG disc. Verification has been performed for blood return and line patency. Arm Circumference: 34.5 CM Equipment: [employer] POWERPICC SOLO Catheter Type: SINGLE LUMEN, 4-YI, PASV Lot #: [id number]
--- NOTE | 2021-03-18 10:21 | MHC.CM.PN ---
REFERRAL TO [facility]. PATIENT PREFERS OT RETURN HOME AT DISCHARGE. [facility] CANNOT OFFER SECONDARY TO METHADONE.
[2021-03-18] MEDS: vancomycin HCL 1,000 MG in 0.9 % Sodium Chloride 250 ML 270 MG IV ×2 (10:34→21:29)
[2021-03-18] MEDS: lisinopriL 5 MG TABLET PO (10:37)
[2021-03-18 11:46] LABS: Glucose, Whole Blood 137 mg/dL (60-115)
--- NOTE | 2021-03-18 12:44 | P.PNIM_ITS ---
Subjective Subjective Date of Service: 03/18/21 Interval History: the patient was seen and evaluated this morning Laying in bed, complaining of pain in his right foot Pain has improved Denies any fever, chills or shortness of breath No reported other overnight events. Systemic review: No fever, chills or weakness No chest pain, palpitation No shortness of breath or coughing No abdominal pain, nausea or vomiting No urinary symptoms Fifth toe blackish discoloration with pain Physical Exam Vital Signs: Vital Signs: Last Vital Signs Temp 97.2 F 03/18/21 11:59 Pulse 73 03/18/21 11:59 Resp 17 03/18/21 11:59 BP 170/79 H 03/18/21 11:59 Pulse Ox 100 03/18/21 11:59 Body Mass Index 31.9 Const: Other: Constitutional : Alert, oriented, not in distress Neck : Normal inspection, Supple Cardiovascular : RRR, S1 S2, no lower extremity edema Respiratory : Good bilateral air entry, no crackles, wheezes or rhonchi Gastrointestinal: soft, lax, Normal bowel sounds, Non tender Skin : Warm, Dry, right 5th toe swollen with surrounding erythema and tenderness to touch Neurological : Alert & oriented x3, No focal deficit Objective Data Current Medications Generic Name Dose Route Start Last Admin Trade Name Freq PRN Reason Stop Dose Admin Acetaminophen 650 mg 03/13/21 20:20 Acetaminophen 325 Mg Tablet PO Q6H PRN Pain, Mild (Pain Scale 1-3) Amlodipine Besylate 10 mg 03/19/21 09:00 Amlodipine Besylate 5 Mg Tablet PO DAILY [facility] Protocol Aspirin 81 mg 03/14/21 09:00 03/18/21 08:38 Aspirin Enteric Coated 81 Mg Tablet.Dr PO 81 mg DAILY [facility] Administration Dextrose 25 gm 03/13/21 23:18 Dextrose 50 % 25 Gm/50 Ml Vial IVPUSH Q15M PRN per Hypoglycemia Standing Ord. Protocol Docusate Sodium 100 mg 03/13/21 21:00 03/18/21 08:38 Docusate Sodium 100 Mg Capsule PO 100 mg BID [facility]RADO Administration Glucose 15 gm 03/13/21 23:18 Glucose Gel 15 Gm Gel..Gram. PO Q15M PRN per Hypoglycemia Standing Ord. Protocol Heparin Sodium (Porcine) 5,000 unit 03/13/21 21:00 03/18/21 08:37 Heparin Sodium,Porcine 5,000 Unit/Ml Vial SUBCUT 5,000 unit Q12H [facility]O Administration Piperacillin Sod/Tazobactam 50 mls @ 100 mls/hr 03/14/21 03:00 03/18/21 11:42 Sod 3.375 gm/ Sodium Chloride IV Infused Q6H [facility]RADO Infusion Vancomycin HCl 1,000 mg/ 270 mls @ 270 mls/hr 03/18/21 10:00 03/18/21 11:42 Sodium Chloride IV Infused Q12H [facility]O Infusion Insulin Glargine 42 unit 03/14/21 21:00 03/17/21 20:40 Insulin Glargine,Hum.Rec.Anlog 100 Unit/Ml 10 Ml Vial SUBCUT 42 unit BEDTIME [facility]RADO Administration Insulin Human Lispro 20 unit 03/14/21 08:00 03/18/21 12:20 Insulin Lispro 100 Unit/Ml 3 Ml Vial SUBCUT 20 unit TIDWM [facility] Administration Insulin Human Lispro 0 unit 03/14/21 07:30 03/18/21 11:48 Insulin Lispro 100 Unit/Ml 3 Ml Vial SUBCUT Not Given QIDACHS [facility] Protocol Lactic Acid 1 appl 03/14/21 09:00 03/18/21 08:38 Ammonium Lactate 12 % Cream 140 Gm Tube TOPICAL 1 appl BID [facility] Administration Protocol Lisinopril 5 mg 03/18/21 09:10 03/18/21 10:37 Lisinopril 5 Mg Tablet PO 5 mg DAILY [facility] Administration Protocol Methadone HCl 50 mg 03/14/21 09:00 03/18/21 08:36 Methadone Hcl 1 Mg/0.1 Ml Oral.Conc PO 50 mg DAILY [facility] Administration Metoprolol Succinate 100 mg 03/14/21 09:00 03/18/21 08:38 Metoprolol Succinate Er 100 Mg Tab.Er.24h PO 100 mg DAILY [facility] Administration Protocol Patient Own 1 each 03/14/21 10:15 03/18/21 08:38 Medication ( PO 1 each Emtricitabine/ DAILY [facility] Administration Rilpivirine/ Tenofovir {Odefsey}) Ondansetron HCl 4 mg 03/13/21 20:20 Ondansetron Hcl 4 Mg/2 Ml Vial IVPUSH Q8H PRN Nausea and Vomiting Pharmacy Consult 1 each 03/13/21 20:20 Consult Rx Vancomycin Dosing MISCELLANE DAILY PRN Consult order Quetiapine Fumarate 100 mg 03/13/21 23:20 03/17/21 20:40 Quetiapine Fumarate 100 Mg Tablet PO 100 mg BEDTIME [facility] Administration Senna 8.6 mg 03/15/21 10:30 03/18/21 08:38 Sennosides 8.6 Mg Tablet PO 8.6 mg DAILY [facility] Administration Sodium Chloride 3 ml 03/14/21 00:00 03/18/21 08:38 0.9 % Sodium Chloride Flush 3 Ml Syringe IVFLUSH 3 ml QSHIFT [facility] Administration Vitamin D 50 mcg 03/14/21 09:00 03/18/21 08:38 Cholecalciferol (Vitamin D3) 25 Mcg Tablet PO 50 mcg DAILY [facility] Administration Labs CBC & Chem 7: 03/15/21 05:44 03/18/21 08:51 Labs: Laboratory Results - last 24 hr 03/17/21 03/17/21 03/18/21 16:13 20:22 05:23 Anion Gap 14 Estim Creat Clear Calc 89.6 Estimated GFR > 60 POC Glucose 129 H 211 H Random Glucose 202 H Calcium 8.2 L Vancomycin Trough 03/18/21 03/18/21 03/18/21 07:21 08:49 08:51 Anion Gap Estim Creat Clear Calc 87.0 Estimated GFR > 60 POC Glucose 180 H Random Glucose Calcium Vancomycin Trough 9.6 L 03/18/21 11:29 Anion Gap Estim Creat Clear Calc Estimated GFR POC Glucose 137 H Random Glucose Calcium Vancomycin Trough Assessment and Plan (1) Osteomyelitis: Status: Acute (2) Toe ulcer: Status: Acute (3) Right leg swelling: Status: Acute Assessment and Plan: 55-year-old male with history of diabetes, osteomyelitis who presents with a nonhealing right foot 5th toe wound. # nonhealing wound,/diabetic foot ulcer # suspected osteomyelitis elevated ESR and CRP The MRI concerning for possible 5th toe osteomyelitis with a fracture Continue broad-spectrum antibiotics follow cultures PICC line and for treatment with 6 weeks with ertapenem # PAD Doppler ultrasound LE showing significant stenosis bilaterally in the lower extremities Vascular surgery evaluation, for Angiography on Thursday # COLT Improved hold any nephrotoxic meds # right leg swelling secondary to toe infection but will rule out DVT Negative Doppler # diabetes continue home insulin diabetic diet low-dose sliding scale insulin # HIV continue home medication # hypertension will hold hydrochlorothiazide in the setting of COLT hold furosemide DVT prophylaxis heparin subQ Quality Stroke Does the patient have a stroke diagnosis?: No VTE Prior VTE?: No VTE Risk Level:: Medical - moderate - high VTE Device Contraindication: Treatment Not Indicated VTE Drug Contraindication: N/A - Med Ordered
--- NOTE | 2021-03-18 13:25 | PM.CNGS ---
History of Present Illness Consult details Consult date: 03/18/21 Reason for consult: wound care Narrative: Very pleasant 55-year-old gentleman presents for vascular evaluation regarding nonhealing right 5th toe ulceration. He had been admitted and subsequently worked up. He was discovered to have underlying osteomyelitis. He has already received a PICC line for IV antibiotic therapy. In addition during his workup he had undergone noninvasive arterial testing. He now presents to us for vascular evaluation. Review of Systems Review of Systems: Yes all other systems are reviewed and are negative Constitutional: Constitutional: Reports no additional constitutional complaints ENT: Reports Normal hearing present Cardiovascular: Cardiovascular: Denies chest pain, Denies chest pain at rest, Denies chest pain with activity and Denies pedal edema Respiratory: Respiratory: Denies cough Gastrointestinal: Gastrointestinal: Denies abdominal pain Musculoskeletal: Musculoskeletal: Denies abnormal gait, Denies muscle cramps and Denies radiating pain into limb Integumentary/Breasts: Skin/Breast: Denies skin ulcer and Denies wounds Neurologic: Reports Normal hearing present and Denies abnormal gait Psychiatric: Psychiatric: Reports no additional psychiatric complaints PMFSH Past Medical History Medical History Cirrhosis COVID-19 vaccine administered Depression Diabetes GERD (gastroesophageal reflux disease) Hepatitis History of hyperbaric oxygen therapy HIV (human immunodeficiency virus infection) Hx of drug dependence Hyperlipidemia Hypertension Osteomyelitis Toe ulcer Family History Family History Father Diabetes HTN (hypertension) Mother HTN (hypertension) Daughter No problems noted. Family history: reviewed and not pertinent Surgical History Surgical History H/O skin graft S/P angiogram of extremity Status post debridement Social History Social History Household Members: Family Housing: House Are you a primary personal carer to a significant other at home: No Do you presently have visiting nurse or other home services: Yes Alcohol intake: never Patient Tobacco Use Status: Current everyday Tobacco user Tobacco use type: Cigarette Cigarette Packs Per Day: 0 Cigarettes Per Day: 4 Years Smoked: 40 e-Cigarette/Vaping Use: Never Used Second Hand Smoke Exposure: No Substance Use Type: Former Substance User and Heroin Advance Directives Date on File: 03/13/21 service: No Current occupational status: disabled Meds Allergies Allergy/AdvReac Type Severity Reaction Status Date / Time trazodone [TRAZODONE] Allergy Unknown UNKNOWN Verified 12/04/20 09:37 Active Medications: Current Medications Generic Name Dose Route Start Last Admin Trade Name Freq PRN Reason Stop Dose Admin Acetaminophen 650 mg 03/13/21 20:20 Acetaminophen 325 Mg Tablet PO Q6H PRN Pain, Mild (Pain Scale 1-3) Amlodipine Besylate 10 mg 03/19/21 09:00 Amlodipine Besylate 5 Mg Tablet PO DAILY [facility] Protocol Aspirin 81 mg 03/14/21 09:00 03/18/21 08:38 Aspirin Enteric Coated 81 Mg Tablet.Dr PO 81 mg DAILY [facility] Administration Dextrose 25 gm 03/13/21 23:18 Dextrose 50 % 25 Gm/50 Ml Vial IVPUSH Q15M PRN per Hypoglycemia Standing Ord. Protocol Docusate Sodium 100 mg 03/13/21 21:00 03/18/21 08:38 Docusate Sodium 100 Mg Capsule PO 100 mg BID [facility] Administration Glucose 15 gm 03/13/21 23:18 Glucose Gel 15 Gm Gel..Gram. PO Q15M PRN per Hypoglycemia Standing Ord. Protocol Heparin Sodium (Porcine) 5,000 unit 03/13/21 21:00 03/18/21 08:37 Heparin Sodium,Porcine 5,000 Unit/Ml Vial SUBCUT 5,000 unit Q12H [facility] Administration Piperacillin Sod/Tazobactam 50 mls @ 100 mls/hr 03/14/21 03:00 03/18/21 11:42 Sod 3.375 gm/ Sodium Chloride IV Infused Q6H [facility] Infusion Vancomycin HCl 1,000 mg/ 270 mls @ 270 mls/hr 03/18/21 10:00 03/18/21 11:42 Sodium Chloride IV Infused Q12H [facility] Infusion Insulin Glargine 42 unit 03/14/21 21:00 03/17/21 20:40 Insulin Glargine,Hum.Rec.Anlog 100 Unit/Ml 10 Ml Vial SUBCUT 42 unit BEDTIME [facility] Administration Insulin Human Lispro 20 unit 03/14/21 08:00 03/18/21 12:20 Insulin Lispro 100 Unit/Ml 3 Ml Vial SUBCUT 20 unit TIDWM [facility] Administration Insulin Human Lispro 0 unit 03/14/21 07:30 03/18/21 11:48 Insulin Lispro 100 Unit/Ml 3 Ml Vial SUBCUT Not Given QIDACHS [facility] Protocol Lactic Acid 1 appl 03/14/21 09:00 03/18/21 08:38 Ammonium Lactate 12 % Cream 140 Gm Tube TOPICAL 1 appl BID [facility] Administration Protocol Lisinopril 5 mg 03/18/21 09:10 03/18/21 10:37 Lisinopril 5 Mg Tablet PO 5 mg DAILY [facility] Administration Protocol Methadone HCl 50 mg 03/14/21 09:00 03/18/21 08:36 Methadone Hcl 1 Mg/0.1 Ml Oral.Conc PO 50 mg DAILY [facility] Administration Metoprolol Succinate 100 mg 03/14/21 09:00 03/18/21 08:38 Metoprolol Succinate Er 100 Mg Tab.Er.24h PO 100 mg DAILY [facility] Administration Protocol Patient Own 1 each 03/14/21 10:15 03/18/21 08:38 Medication ( PO 1 each Emtricitabine/ DAILY [facility] Administration Rilpivirine/ Tenofovir {Michelesey}) Ondansetron HCl 4 mg 03/13/21 20:20 Ondansetron Hcl 4 Mg/2 Ml Vial IVPUSH Q8H PRN Nausea and Vomiting Pharmacy Consult 1 each 03/13/21 20:20 Consult Rx Vancomycin Dosing MISCELLANE DAILY PRN Consult order Quetiapine Fumarate 100 mg 03/13/21 23:20 03/17/21 20:40 Quetiapine Fumarate 100 Mg Tablet PO 100 mg BEDTIME [facility] Administration Senna 8.6 mg 03/15/21 10:30 03/18/21 08:38 Sennosides 8.6 Mg Tablet PO 8.6 mg DAILY [facility] Administration Sodium Chloride 3 ml 03/14/21 00:00 03/18/21 08:38 0.9 % Sodium Chloride Flush 3 Ml Syringe IVFLUSH 3 ml QSHIFT [facility] Administration Vitamin D 50 mcg 03/14/21 09:00 03/18/21 08:38 Cholecalciferol (Vitamin D3) 25 Mcg Tablet PO 50 mcg DAILY [facility] Administration Home Medications Medication Instructions Recorded Confirmed Last Taken Type ammonium lactate 12 % topical cream 1 appl TOPICAL BID 08/08/20 03/13/21 Unknown History aspirin 81 mg tablet,delayed 81 mg PO DAILY 08/08/20 03/13/21 Unknown History release blood sugar diagnostic #10 ea 08/08/20 10/16/20 Unknown History cholecalciferol (vitamin D3) 50 50 mcg PO DAILY 08/08/20 03/13/21 Unknown History mcg (2,000 unit) tablet dulaglutide 1.5 mg/0.5 mL 1.5 mg SUBCUT QWEEK 08/08/20 03/13/21 Unknown History subcutaneous pen injector furosemide 20 mg tablet 20 mg PO DAILY PRN 08/08/20 03/13/21 Unknown History hydrochlorothiazide 25 mg tablet 25 mg PO DAILY 08/08/20 03/13/21 Unknown History insulin syringe-needle U-100 1 mL #10 ea 08/08/20 10/16/20 Unknown History 29 gauge x 1/2 metoprolol succinate 100 mg 100 mg PO DAILY 08/08/20 03/13/21 11/14/20 09:30 History tablet,extended release 24 hr quetiapine 100 mg tablet 100 mg PO BEDTIME 08/08/20 03/13/21 Unknown History lancets 33 gauge #100 ea 11/08/20 Unknown History metformin 500 mg tablet,extended 1,000 mg PO DAILY 11/08/20 12/05/20 Unknown History release 24 hr pen needle, diabetic 32 gauge x #50 ea 11/08/20 Unknown History methadone 10 mg/mL oral concentrate 50 mg PO DAILY 11/12/20 03/13/21 11/14/20 09:30 History emtricitabine 200 mg-rilpivirine 1 tab PO DAILY 12/05/20 03/13/21 Unknown History 25 mg-tenofovir alafenam 25 mg tablet (Bryan) insulin aspart U-100 100 unit/mL 20 unit SUBCUT TIDWM 12/05/20 03/13/21 Unknown History (3 mL) subcutaneous pen (Novolog Flexpen U-100 Insulin aspart) insulin degludec 100 unit/mL (3 60 unit SUBCUT DAILY 12/05/20 03/13/21 Unknown History mL) subcutaneous pen (Tresiba FlexTouch U-100 insulin) Physical Exam Vital Signs: Vital Signs: Last Vital Signs Temp 97.2 F 03/18/21 11:59 Pulse 73 03/18/21 11:59 Resp 17 03/18/21 11:59 BP 170/79 H 03/18/21 11:59 Pulse Ox 100 03/18/21 11:59 Body Mass Index 31.9 Const: General: cooperative, healthy appearing and comfortable Orientation/consciousness: oriented to person, oriented to place and oriented to time HENMT: Head: Yes normal to inspection Neck: Neck: Yes normal visual inspection Carotids: no bruits Chest: Chest palpation & inspection: normal inspection of the chest Resp: Effort & Inspection: normal respiratory effort and able to speak in complete sentences Auscultation: clear to auscultation bilaterally, no crackles, no rales, no rhonchi and no wheezes Cardio: Rate: regular rate Rhythm: regular rhythm Heart sounds: S1 normal heart sound present and S2 normal heart sound present Bruits: no carotid bruits Peripheral pulses: dorsalis pedis present (Bilateral DP signal only) GI: Inspection: Yes normal to inspection Skin: Wounds: wounds noted (Right 5th toe dorsal necrosis) Hair: normal Neuro: General: oriented to person, oriented to place and oriented to time Cranial nerves: Yes CN's II-XII intact bilaterally and Yes Normal hearing present Cognition (Neuro): normal cognition Motor exam (neuro): 5/5 motor strength present throughout Extrem: Other: venous exam: No significant superficial varicosities or spider telangiectasias, minimal edema General: No clubbing, No cyanosis and No edema Psych: Appearance: grossly normal Mental Status: mental status grossly normal Speech and movement: Normal speech and movement present Results Labs Result diagrams: 03/15/21 05:44 03/18/21 08:51 Labs: Abnormal lab results 03/17/21 03/17/21 03/18/21 Range/Units 16:13 20:22 05:23 POC Glucose 129 H 211 H (60-115) mg/dL Random Glucose 202 H (60-115) mg/dL Calcium 8.2 L (8.4-10.2) mg/dL Vancomycin Trough (10.0-20.0) mcg/mL 03/18/21 03/18/21 03/18/21 Range/Units 07:21 08:49 11:29 POC Glucose 180 H 137 H (60-115) mg/dL Random Glucose (60-115) mg/dL Calcium (8.4-10.2) mg/dL Vancomycin Trough 9.6 L (10.0-20.0) mcg/mL BMP 03/18/21 03/18/21 05:23 08:51 Sodium 141 Potassium 4.0 Chloride 105 Carbon Dioxide 26 BUN 15 Creatinine 1.01 1.04 Calcium 8.2 L All other labs normal. Assessment and Plan (1) PAD (peripheral artery disease): Status: Acute Patient notes nonhealing right 5th toe ulcer I have discussed the pathophysiology of peripheral vascular disease with the patient. I have also discussed risk factor modification. I have reviewed the patient's arterial testing which reveals common femoral and SFA disease on the right leg the patient would benefit from a right leg endovascular peripheral angiogram with possible angioplasty, stent, and/or atherectomy. This has been discussed in detail with the patient along with risks, benefits, and complications. This includes but is not limited to bleeding, infection, heart attack, need for emergent surgical repair, limb ischemia, blood vessel damage, bleeding, puncture, kidney injury, bruising, allergic reaction, and skin reaction. The patient demonstrates a clear understanding. We will schedule for the next appropriate time. Thank you for allowing us to assist in this patient's care. Procedures Date of Service Date of Service: 03/18/21
[2021-03-18 16:38] LABS: Glucose, Whole Blood 192 mg/dL (60-115)
[2021-03-18 20:31] LABS: Glucose, Whole Blood 173 mg/dL (60-115)
[2021-03-18] MEDS: QUEtiapine Fumarate 100 MG TABLET PO (21:27)
[2021-03-18] MEDS: Insulin Glargine,Hum.rec.anlog 100 UNIT/ML 10 ML VIAL 42 UNIT SUBCUT (21:28)
[2021-03-19] VITALS (12 sets, daily range): BP systolic 121–181; BP diastolic 57–86; PULSE 70–95; RESP 16–20; TEMP 36.1–37.4; O2SAT 97–100
[2021-03-19] MEDS: Piperacillin Sodium/Tazobactam 3.375 GM in 0.9 % Sodium Chloride 50 ML IV ×4 (03:54→20:25)
[2021-03-19] MEDS: 0.9 % Sodium Chloride 1,000 ML 100 ML IVCONT (05:59)
[2021-03-19 07:01] LABS: Glucose, Whole Blood 153 mg/dL (60-115)
[2021-03-19 07:46] LABS: Creatinine Clr Calc Pharmacy 91.4; Estimated Glomerular Filt Rate > 60
--- NOTE | 2021-03-19 10:06 | P.OP_ITS ---
Operative Note Operative Note Date of Service: 03/19/21 Narrative: Angiogram report from [facility] Preoperative diagnosis: Atherosclerosis of right lower extremity with nonhealing ulcer Postoperative diagnosis: Same Procedure: 1. Ultrasound-guided left common femoral access 2. Aortogram with right lower extremity runoff 3. Angioplasty of right anterior tibial and peroneal artery Surgeon:Luke Billings M.D. Director Of Agriculture:None Anesthesia: Local with moderate conscious sedation for a total of 78 minutes, performed by ak Specimens:none Drains:none Estimated blood loss: Less than 10 ml Indications: 55-year-old gentleman who presented to the hospital with atherosclerosis and a nonhealing right 5th toe ulceration now presents for endovascular intervention. The patient has signed the informed consent after reviewing risks, complications, benefits, and alternatives previously discussed with the patient. The patient was given the opportunity to ask any additional questions or voice any concerns. All questions were answered to the patient's satisfaction. Procedure in detail: Patient was brought to the angiography suite prior to which a time-out was called for patient identification and site verification. Bilateral groins were prepped and draped in the standard surgical fashion. Under ultrasound guidance leftcommon femoral was punctured with micro puncture needle and wire. Subsequently a precision 4 Frisian sheath was then placed. streamOnceson wire was advanced to the level of the aorta. 4 Frisian Flush catheter was brought up and parked at the level of the renal arteries. Aortogram was then undertaken. Catheter was brought down to the level of the iliac bifurcation. Iliacs were subsequently imaged. Catheter was then brought in up and over to the right side SFA. Runoff study was then undertaken. At this time it was recognized that he did have significant below-knee disease. 5000 units of systemic heparin was administered. Up and over 6 Frisian sheath was then placed. We then brought a now he cross catheter just below the knee in the blue knee popliteal region. And 014 wire was used to traverse the lesions and get into the anterior tibial artery. We 1st tried to use a tapered 1.5-2 balloon. We were able to get into the mid anterior tibial artery we then went down to a 2 x 100 balloon and this had minimal additional X 6s and finally we did a 1.5 balloon which did provide significant improvement throughout the anterior tibial at the more proximal portion we once again insufflated this with a 2.5 x 100 balloon. We then turned our attention to the peroneal artery where the origin had a high-grade stenosis. This was plasty and with a 3 x 40 balloon. Once this was all accomplished we turned our attention to the iliac system which had mild to moderate stenosis a multiple orthogonal views were undertaken. There was no high-grade stenosis noted. At this point catheter wire sheath was brought back to the ipsilateral side. StarClose closure device was deployed. Adequate hemostasis was achieved. 10 minutes of direct pressure was held. Interpretation of films: 1. Ultrasound demonstrates appropriate femoral puncture. Image of which was saved. 2. Aortogram demonstrates appropriate caliber aorta. Minimal disease. Appropriate take-off of the renals. 3. Iliac images demonstrate small caliber vessels with stenosis mild to moderate noted in the external iliac in particular on the right side. 4. Right lower extremity demonstrated good flow through the common femoral profunda and SFA all the way down into the popliteal. Below knee had good runoff in the posterior tibial peroneal had moderate stenosis at the origin. Good runoff. Anterior tibial was tenuous with multiple stenotic areas thro ughout. Completion angiogram demonstrated good flow through the posterior tibial peroneal and anterior tibial had improved flow although smaller in caliber. Conclusion: 1. Successful angiogram with plasty of right anterior tibial and peroneal arteries. The patient will require aspirin and Plavix. This note is constructed using voice recognition software. While every effort has been made to ensure accuracy, jig boring machine set up operator errors may have been included. Thank you for allowing me to participate in the care of your patient. Yours sincerely, Luke Billings MD, FACS, R.P.V.I.
[2021-03-19] MEDS: vancomycin HCL 1,000 MG in 0.9 % Sodium Chloride 250 ML 270 MG IV ×2 (11:09→22:07)
--- NOTE | 2021-03-19 11:29 | P.PNIM_ITS ---
Subjective Subjective Date of Service: 03/19/21 Interval History: Went to angiogram study this morning Pain has improved No fever, chills or shortness of breath No reported other overnight events. Systemic review: No fever, chills or weakness No chest pain, palpitation No shortness of breath or coughing No abdominal pain, nausea or vomiting No urinary symptoms Physical Exam Vital Signs: Vital Signs: Last Vital Signs Temp 99.3 F 03/19/21 09:47 Pulse 78 03/19/21 10:45 Resp 18 03/19/21 10:45 BP 140/86 H 03/19/21 10:45 Pulse Ox 100 03/19/21 10:45 Body Mass Index 31.9 Const: Other: Constitutional : Alert, oriented, not in distress Neck : Normal inspection, Supple Cardiovascular : RRR, S1 S2, no lower extremity edema Respiratory : Good bilateral air entry, no crackles, wheezes or rhonchi Gastrointestinal: soft, lax, Normal bowel sounds, Non tender Skin : Warm, Dry, right 5th toe swollen with surrounding erythema and tenderness to touch Neurological : Alert & oriented x3, No focal deficit Objective Data Current Medications Generic Name Dose Route Start Last Admin Trade Name Freq PRN Reason Stop Dose Admin Acetaminophen 650 mg 03/13/21 20:20 Acetaminophen 325 Mg Tablet PO Q6H PRN Pain, Mild (Pain Scale 1-3) Amlodipine Besylate 10 mg 03/19/21 09:00 Amlodipine Besylate 5 Mg Tablet PO DAILY [facility] Protocol Aspirin 81 mg 03/14/21 09:00 03/18/21 08:38 Aspirin Enteric Coated 81 Mg Tablet.Dr PO 81 mg DAILY [facility] Administration Clopidogrel Bisulfate 75 mg 03/20/21 09:00 Clopidogrel Bisulfate 75 Mg Tablet PO DAILY [facility] Dextrose 25 gm 03/13/21 23:18 Dextrose 50 % 25 Gm/50 Ml Vial IVPUSH Q15M PRN per Hypoglycemia Standing Ord. Protocol Docusate Sodium 100 mg 03/13/21 21:00 03/18/21 21:27 Docusate Sodium 100 Mg Capsule PO 100 mg BID [facility] Administration Glucose 15 gm 03/13/21 23:18 Glucose Gel 15 Gm Gel..Gram. PO Q15M PRN per Hypoglycemia Standing Ord. Protocol Heparin Sodium (Porcine) 5,000 unit 03/13/21 21:00 03/18/21 21:27 Heparin Sodium,Porcine 5,000 Unit/Ml Vial SUBCUT 5,000 unit Q12H [facility] Administration Piperacillin Sod/Tazobactam 50 mls @ 100 mls/hr 03/14/21 03:00 03/19/21 11:08 Sod 3.375 gm/ Sodium Chloride IV 03/20/21 06:00 Infused Q6H [facility] Infusion Vancomycin HCl 1,000 mg/ 270 mls @ 270 mls/hr 03/18/21 10:00 03/19/21 11:09 Sodium Chloride IV 03/20/21 06:00 270 mls/hr Q12H [facility] Administration Sodium Chloride 1,000 mls @ 100 mls/hr 03/19/21 06:00 03/19/21 05:59 Ns IVCONT 100 mls/hr .Q10H [facility] Administration Ertapenem 1 gm/ Sodium 50 mls @ 100 mls/hr 03/20/21 09:00 Chloride IV 03/20/21 09:29 ONCE ONE Insulin Glargine 42 unit 03/14/21 21:00 03/18/21 21:28 Insulin Glargine,Hum.Rec.Anlog 100 Unit/Ml 10 Ml Vial SUBCUT 42 unit BEDTIME [facility] Administration Insulin Human Lispro 20 unit 03/14/21 08:00 03/18/21 16:50 Insulin Lispro 100 Unit/Ml 3 Ml Vial SUBCUT 20 unit TIDWM [facility] Administration Insulin Human Lispro 0 unit 03/14/21 07:30 03/18/21 21:28 Insulin Lispro 100 Unit/Ml 3 Ml Vial SUBCUT 8 unit QIDACHS [facility] Administration Protocol Lactic Acid 1 appl 03/14/21 09:00 03/18/21 21:36 Ammonium Lactate 12 % Cream 140 Gm Tube TOPICAL 1 appl BID [facility] Administration Protocol Lisinopril 5 mg 03/18/21 09:10 03/18/21 10:37 Lisinopril 5 Mg Tablet PO 5 mg DAILY [facility] Administration Protocol Methadone HCl 50 mg 03/14/21 09:00 03/18/21 08:36 Methadone Hcl 1 Mg/0.1 Ml Oral.Conc PO 50 mg DAILY [facility] Administration Metoprolol Succinate 100 mg 03/14/21 09:00 03/18/21 08:38 Metoprolol Succinate Er 100 Mg Tab.Er.24h PO 100 mg DAILY [facility] Administration Protocol Patient Own 1 each 03/14/21 10:15 03/18/21 08:38 Medication ( PO 1 each Emtricitabine/ DAILY [facility] Administration Rilpivirine/ Tenofovir {Odefsey}) Ondansetron HCl 4 mg 03/13/21 20:20 Ondansetron Hcl 4 Mg/2 Ml Vial IVPUSH Q8H PRN Nausea and Vomiting Pharmacy Consult 1 each 03/13/21 20:20 Consult Rx Vancomycin Dosing MISCELLANE DAILY PRN Consult order Quetiapine Fumarate 100 mg 03/13/21 23:20 03/18/21 21:27 Quetiapine Fumarate 100 Mg Tablet PO 100 mg BEDTIME [facility] Administration Senna 8.6 mg 03/15/21 10:30 03/18/21 08:38 Sennosides 8.6 Mg Tablet PO 8.6 mg DAILY [facility] Administration Sodium Chloride 3 ml 03/14/21 00:00 03/18/21 21:37 0.9 % Sodium Chloride Flush 3 Ml Syringe IVFLUSH 3 ml QSHIFT [facility] Administration Vitamin D 50 mcg 03/14/21 09:00 03/18/21 08:38 Cholecalciferol (Vitamin D3) 25 Mcg Tablet PO 50 mcg DAILY [facility] Administration Labs CBC & Chem 7: 03/15/21 05:44 03/19/21 07:19 Labs: Laboratory Results - last 24 hr 03/18/21 03/18/21 03/18/21 11:29 16:22 20:20 Estim Creat Clear Calc Estimated GFR POC Glucose 137 H 192 H 173 H 03/19/21 03/19/21 06:58 07:19 Estim Creat Clear Calc 91.4 Estimated GFR > 60 POC Glucose 153 H Microbiology Microbiology Results: Microbiology 03/13/21 18:43 Blood Culture - Final Blood - Venous No growth after 5 days. 03/13/21 18:37 Blood Culture - Final Blood - Venous No growth after 5 days. Assessment and Plan (1) PAD (peripheral artery disease): Status: Acute (2) Osteomyelitis: Status: Acute (3) Toe ulcer: Status: Acute Assessment and Plan: 55-year-old male with history of diabetes, osteomyelitis who presents with a nonhealing right foot 5th toe wound. # nonhealing wound,/diabetic foot ulcer # suspected osteomyelitis elevated ESR and CRP The MRI concerning for possible 5th toe osteomyelitis with a fracture Continue broad-spectrum antibiotics follow cultures PICC line placed To give ertapenem 1st dose tomorrow morning with a plan to discharge home in the afternoon with [facility]. # PAD Doppler ultrasound LE showing significant stenosis bilaterally in the lower extremities Vascular surgery evaluation, angiography plan for today # COLT Improved hold any nephrotoxic meds # right leg swelling secondary to toe infection but will rule out DVT Negative Doppler # diabetes continue home insulin diabetic diet low-dose sliding scale insulin # HIV continue home medication # hypertension will hold hydrochlorothiazide in the setting of COLT hold furosemide DVT prophylaxis heparin subQ Quality Stroke Does the patient have a stroke diagnosis?: No VTE Prior VTE?: No VTE Risk Level:: Medical - moderate - high VTE Device Contraindication: Treatment Not Indicated VTE Drug Contraindication: N/A - Med Ordered
--- NOTE | 2021-03-19 11:35 | MHC.CM.PN ---
[facility] ARRIVED AND NOW HAS THE FLUSH FORM AND RX FOR INVANZ. FORMS ALSO UPLOADED INTO [employer] PLAN IS FOR PATIENT TO DC TO HOME TOMORROW AND RECEIVE START OF CARE Thursday03/21/21. [facility], PATIENT, AND [facility] AWARE OF PLAN.
--- NOTE | 2021-03-19 12:09 | W.PM.OPN ---
Operative Note Operative Note Date of Service: 03/19/21 Narrative: Angiogram report from [facility] Preoperative diagnosis: Atherosclerosis of right lower extremity with nonhealing ulcer Postoperative diagnosis: Same Procedure: 1. Ultrasound-guided left common femoral access 2. Aortogram with right lower extremity runoff 3. Plasty right anterior tibial and peroneal artery Surgeon:Luke Billings M.D. Spot Checker:None Anesthesia: Local with moderate conscious sedation for a total of 78 minutes, performed by sc Specimens:none Drains:none Estimated blood loss: Less than 10 ml Indications: 55-year-old gentleman with a history of peripheral vascular disease and nonhealing right 5th toe ulcer presents for endovascular treatment. The patient has signed the informed consent after reviewing risks, complications, benefits, and alternatives previously discussed with the patient. The patient was given the opportunity to ask any additional questions or voice any concerns. All questions were answered to the patient's satisfaction. Procedure in detail: Patient was brought to the angiography suite prior to which a time-out was called for patient identification and site verification. Bilateral groins were prepped and draped in the standard surgical fashion. Under ultrasound guidance left common femoral was punctured with micro puncture needle and wire. Subsequently a precision 4 [place] sheath was then placed. Bentson wire was advanced to the level of the aorta. 4 [place] Flush catheter was brought up and parked at the level of the renal arteries. Aortogram was then undertaken. Catheter was brought down to the level of the iliac bifurcation. Iliacs were subsequently imaged. Catheter was then brought in up and over to the right side SFA. Runoff study was then undertaken. At this time it was recognized that he had significant below-knee disease. 5000 units of systemic heparin was administered. After 5 minutes of circulation time and up and over 6 [place] sheath was then placed. We advanced a 035 wire to the below-knee popliteal. We then brought in a now be cross catheter. Through this we brought in a 014 wire. Once this was accomplished I was able to access the anterior tibial artery. We confirmed true lumen with the catheter. At this point we E plasty this with a progressive 1.5-2 balloon. Then we subsequently plasty the this with a 1.5 balloon in the more distal portion which we could not reach. Finally we plasty id the rest with a 2.5 x 100 balloon in the more proximal portion. We then turned our attention to the pro Tayo artery we redirected the wire down the prone heel artery and at the proximal portion we plasty a high-grade stenosis with a 3 x 40 balloon. We then turned our attention to the iliacs. There was [id number] disease but none that appeared flow limiting. Multiple orthogonal views were undertaken. No intervention was indicated in the iliacs. Catheter wire sheath were brought back to the ipsilateral side. StarClose closure device was deployed. At the end the case sponge instrument counts were correct. Patient tolerated the procedure well. Interpretation of films: 1. Ultrasound demonstrates appropriate femoral puncture. Image of which was saved. 2. Aortogram demonstrates appropriate caliber aorta. Minimal disease. Appropriate take-off of the renals. 3. Iliac images demonstrate small caliber vessel [id number] disease in the external iliac on the right side. It did not appear flow limiting. 4. Right side demonstrated good flow through the profundus an SFA all the way down to the popliteal below knee posterior tibial had normal flow all the way through peroneal had some disease at the proximal portion but normal flow down below anterior tibial had multiple stenotic lesions throughout. Completion angiogram demonstrated reasonable flow through the anterior tibial excellent flow through the peroneal and posterior tibial arteries. Conclusion: 1. Successful at angioplasty of right peroneal and anterior tibial arteries. Patient will require aspirin and Plavix. This note is constructed using voice recognition software. While every effort has been made to ensure accuracy, moth proofer errors may have been included. Thank you for allowing me to participate in the care of your patient. Yours sincerely, Luke Billings MD, FACS, R.P.V.I.
[2021-03-19 13:02] LABS: Glucose, Whole Blood 144 mg/dL (60-115)
[2021-03-19] MEDS: amLODIPine Besylate 5 MG TABLET 10 MG PO (13:03)
[2021-03-19] MEDS: lisinopriL 5 MG TABLET PO (13:03)
[2021-03-19] MEDS: Sennosides 8.6 MG TABLET PO (13:03)
[2021-03-19] MEDS: Clopidogrel Bisulfate 300 MG TABLET PO (13:03)
[2021-03-19] MEDS: Metoprolol Succinate ER 100 MG TAB.ER.24H PO (13:05)
[2021-03-19] MEDS: methADONE HCl 20 MG/2 ML ORAL.CONC 50 MG PO (13:21)
--- NOTE | 2021-03-19 13:39 | W.PM.OPN ---
Operative Note Operative Note Date of Service: 03/19/21 Narrative: Angiogram report from [facility] Preoperative diagnosis: Atherosclerosis of right lower extremity with nonhealing ulcer Postoperative diagnosis: Same Procedure: 1. Ultrasound-guided left common femoral access 2. Aortogram with right lower extremity runoff 3. Angioplasty of right anterior tibial and peroneal arteries Surgeon:Luke Billings M.D. Head Men'S Tennis Coach:None Anesthesia: Local with moderate conscious sedation for a total of 78 minutes, performed by ny Specimens:none Drains:none Estimated blood loss: Less than 10 ml Indications: 55-year-old gentleman with a history of peripheral vascular disease has it been in the hospital for nonhealing right 5th toe ulceration. He now presents for endovascular intervention. The patient has signed the informed consent after reviewing risks, complications, benefits, and alternatives previously discussed. The patient was given the opportunity to ask any additional questions or voice any concerns. All questions were answered to the patient's satisfaction. Procedure in detail: Patient was brought to the angiography suite prior to which a time-out was called for patient identification and site verification. Bilateral groins were prepped and draped in the standard surgical fashion. Under ultrasound guidance left common femoral was punctured with micro puncture needle and wire. Subsequently a precision 4 [place] sheath was then placed. [employer] wire was advanced to the level of the aorta. 4 [place] Flush catheter was brought up and parked at the level of the renal arteries. Aortogram was then undertaken. Catheter was brought down to the level of the iliac bifurcation. Iliacs were subsequently imaged. Catheter was then brought in up and over to the right side SFA. Runoff study was then undertaken. At this time it was discovered that most of the disease was right below-knee vasculature. 5000 units of systemic heparin was administered. Up and over 6 Venezuelan sheath was placed. An 035 glidewire Advantage was advanced all the way down to the popliteal. Confirmed true lumen with not across catheter. We then advanced a 014 wire down to the anterior tibial. There are multiple stenotic lesions throughout. We were finally able to traverse these and we confirmed true lumen once again with a catheter. We 1st plastied with a 1.5-2.0 tapered balloon. A there additional lesions distal to that which was plasty with a 1.5 by 100 balloon. More proximally we used a 2.5 x 100 balloon as well. Reasonable result was achieved. We redirected the were 014 wire down the peroneal artery. The proximal portion was plasty and with a 3.0 x 20 balloon. Once this was accomplished we turned our attention to the iliacs. The external iliac had mild to moderate stitches ease. There was no flow-limiting stenosis noted. Multiple orthogonal views were undertaken. We then brought the catheter wire sheath back to the ipsilateral side. StarClose closure device was deployed. 10 minutes direct pressure was held. Patient tolerated the procedure well. Interpretation of films: 1. Ultrasound demonstrates appropriate femoral puncture. Image of which was saved. 2. Aortogram demonstrates appropriate caliber aorta. Minimal disease. Appropriate take-off of the renals. 3. Iliac images demonstrate small caliber. Right external iliac had mild to moderate stenosis. No flow mill limiting disease. 4. Right side demonstrated good flow through the SFA and popliteal. Below-knee anterior tibial had significant disease and the origin of peroneal. The rest of the peroneal was within normal limits. Posterior tibial had excellent flow. Completion angiogram demonstrated reasonable flow through the anterior tibial. Good flow through the peroneal and posterior tibial. Conclusion: 1. Successful plasty of right anterior tibial and peroneal arteries. Patient will require aspirin and Plavix. This note is constructed using voice recognition software. While every effort has been made to ensure accuracy, mobile application tester errors may have been included. Thank you for allowing me to participate in the care of your patient. Yours sincerely, Luke Billings MD, FACS, R.P.V.I.
[2021-03-19 16:29] LABS: Glucose, Whole Blood 285 mg/dL (60-115)
[2021-03-19] MEDS: Insulin Lispro 100 UNIT/ML 3 ML VIAL 20 UNIT SUBCUT (16:52)
[2021-03-19] MEDS: Insulin Lispro 100 UNIT/ML 3 ML VIAL SUBCUT ×2 (16:53→20:25)
[2021-03-19 20:24] LABS: Glucose, Whole Blood 229 mg/dL (60-115)
[2021-03-19] MEDS: Heparin Sodium,Porcine 5,000 UNIT/ML VIAL 5000 UNIT SUBCUT (20:24)
[2021-03-19] MEDS: Insulin Glargine,Hum.rec.anlog 100 UNIT/ML 10 ML VIAL 42 UNIT SUBCUT (20:24)
[2021-03-19] MEDS: Docusate Sodium 100 MG CAPSULE PO (20:25)
[2021-03-19] MEDS: QUEtiapine Fumarate 100 MG TABLET PO (20:25)
[2021-03-19] MEDS: Ammonium Lactate 12 % Cream 140 GM TUBE 1 APPL TOPICAL (22:10)
[2021-03-20] MEDS: 0.9 % Sodium Chloride 1,000 ML 100 ML IVCONT (02:23)
[2021-03-20 03:46] VITALS: BP 136/62; PULSE 74; RESP 16; TEMP 36.9; O2SAT 100
[2021-03-20] MEDS: Piperacillin Sodium/Tazobactam 3.375 GM in 0.9 % Sodium Chloride 50 ML IV (03:56)
[2021-03-20 06:29] LABS: Hematocrit 25.7 % (42-52); Hemoglobin 9.1 g/dl (14.0-18.0); Mean Corpuscular HGB Conc 35.4 g/dl (31.0-36.0); Mean Corpuscular Hemoglobin 32.2 pg (27.0-33.0); Mean Corpuscular Volume 90.8 fL (80-98); Mean Platelet Volume 11.3 fL (9.4-12.4); Platelet Count 144 X10*3/uL (160-400); Red Blood Count 2.83 X10*6/uL (4.60-5.80); Red Cell Distribution Width 12.5 % (11.0-16.0)
[2021-03-20 07:03] LABS: Anion Gap 10 (12-20); Calcium 8.1 mg/dL (8.4-10.2); Carbon Dioxide 28 mmol/L (22-29); Chloride 107 mmol/L (96-108); Creatinine Clr Calc Pharmacy 100.5; Estimated Glomerular Filt Rate > 60; Glucose Random 166 mg/dL (60-115); Potassium 3.8 mmol/L (3.3-5.1); Sodium 141 mmol/L (135-145)
[2021-03-20 07:21] LABS: Blood Urea Nitrogen 10 mg/dL (9-16)
[2021-03-20 07:54] VITALS: BP 176/81; PULSE 80; RESP 18; TEMP 36.1; O2SAT 100
[2021-03-20 07:59] LABS: Glucose, Whole Blood 154 mg/dL (60-115)
[2021-03-20] MEDS: Insulin Lispro 100 UNIT/ML 3 ML VIAL SUBCUT ×2 (08:09→12:08)
[2021-03-20] MEDS: methADONE HCl 20 MG/2 ML ORAL.CONC 50 MG PO (08:10)
[2021-03-20] MEDS: Cholecalciferol (Vitamin D3) 25 MCG TABLET 50 MCG PO (08:12)
[2021-03-20] MEDS: Clopidogrel Bisulfate 75 MG TABLET PO (08:12)
[2021-03-20] MEDS: Aspirin Enteric Coated 81 MG TABLET.DR PO (08:13)
[2021-03-20] MEDS: amLODIPine Besylate 5 MG TABLET 10 MG PO (08:13)
[2021-03-20] MEDS: Docusate Sodium 100 MG CAPSULE PO (08:13)
[2021-03-20] MEDS: Metoprolol Succinate ER 100 MG TAB.ER.24H PO (08:13)
[2021-03-20] MEDS: lisinopriL 5 MG TABLET PO (08:13)
[2021-03-20] MEDS: 0.9 % Sodium Chloride Flush 3 ML SYRINGE IVFLUSH (08:15)
[2021-03-20] MEDS: Heparin Sodium,Porcine 5,000 UNIT/ML VIAL 5000 UNIT SUBCUT (08:15)
[2021-03-20] MEDS: Ammonium Lactate 12 % Cream 140 GM TUBE 1 APPL TOPICAL (08:17)
[2021-03-20] MEDS: Ertapenem Sodium 1 GM in 0.9 % Sodium Chloride 50 ML IV (10:05)
[2021-03-20 11:16] VITALS: BP 165/75; PULSE 76; RESP 16; TEMP 36.1; O2SAT 99
[2021-03-20 11:28] LABS: Glucose, Whole Blood 293 mg/dL (60-115)
--- NOTE | 2021-03-20 11:55 | HO.VASCPN ---
Subjective Subjective Date of Service: 03/20/21 Patient reports: no new complaints and feels better Interval history: Patient seen and examined. No significant events overnight. Status post angiogram. Left groin had a pressure dressing which was stable overnight. He notes that right lower extremity does feel better to him. Now for postprocedure follow-up. Physical Exam Vital Signs: Vital Signs: Last Vital Signs Temp 96.9 F 03/20/21 11:16 Pulse 76 03/20/21 11:16 Resp 16 03/20/21 11:16 BP 165/75 H 03/20/21 11:16 Pulse Ox 99 03/20/21 11:16 Body Mass Index 31.9 Const: General: cooperative, healthy appearing and no acute distress Orientation/consciousness: oriented to person, oriented to place and oriented to time HENMT: Head: Yes normal to inspection Neck: Carotids: no bruits Chest: Chest palpation & inspection: normal inspection of the chest Resp: Effort & Inspection: normal respiratory effort and able to speak in complete sentences Auscultation: clear to auscultation bilaterally Cardio: Rate: regular rate Heart sounds: S1 normal heart sound present and S2 normal heart sound present Peripheral pulses: dorsalis pedis present (Bilateral DP signals) GI: Inspection: Yes normal to inspection Skin: General skin exam: no rashes or lesions noted Wounds: wounds noted (Right 5th toe) Neuro: General: oriented to person, oriented to place, oriented to time and CN's II-XI intact bilaterally Extrem: General: Yes normal to inspection, Yes full ROM and Yes no clubbing, cyanosis or edema Psych: Appearance: grossly normal and well kempt Speech and movement: Normal speech and movement present Affect: normal affect Progress Note: A&P Assessment and plan (1) PAD (peripheral artery disease): Status: Acute Assessment and Plan: In short patient is stable status post endovascular intervention. Stable from my perspective for discharge. Upon discharge patient will need to be maintained on aspirin and Plavix. He can follow up with me in approximately 2 weeks time. Thank you for allowing us to assist in his care. If there are any questions or concerns please do not hesitate to contact us. Fall Risk Details Current Medications: Current Medications Generic Name Dose Route Start Last Admin Trade Name Freq PRN Reason Stop Dose Admin Acetaminophen 650 mg 03/13/21 20:20 Acetaminophen 325 Mg Tablet PO Q6H PRN Pain, Mild (Pain Scale 1-3) Amlodipine Besylate 10 mg 03/19/21 09:00 03/20/21 08:13 Amlodipine Besylate 5 Mg Tablet PO 10 mg DAILY LIBRADO Administration Protocol Aspirin 81 mg 03/14/21 09:00 03/20/21 08:13 Aspirin Enteric Coated 81 Mg Tablet. PO 81 mg DAILY LIBRADO Administration Clopidogrel Bisulfate 75 mg 03/20/21 09:00 03/20/21 08:12 Clopidogrel Bisulfate 75 Mg Tablet PO 75 mg DAILY LIBRADO Administration Dextrose 25 gm 03/13/21 23:18 Dextrose 50 % 25 Gm/50 Ml Vial IVPUSH Q15M PRN per Hypoglycemia Standing Ord. Protocol Docusate Sodium 100 mg 03/13/21 21:00 03/20/21 08:13 Docusate Sodium 100 Mg Capsule PO 100 mg BID LIBRADO Administration Glucose 15 gm 03/13/21 23:18 Glucose Gel 15 Gm Gel..Gram. PO Q15M PRN per Hypoglycemia Standing Ord. Protocol Heparin Sodium (Porcine) 5,000 unit 03/13/21 21:00 03/20/21 08:15 Heparin Sodium,Porcine 5,000 Unit/Ml Vial SUBCUT 5,000 unit Q12H LIBRADO Administration Sodium Chloride 1,000 mls @ 100 mls/hr 03/19/21 06:00 03/20/21 02:23 Ns IVCONT 100 mls/hr .Q10H LIBRADO Administration Insulin Glargine 42 unit 03/14/21 21:00 03/19/21 20:24 Insulin Glargine,Hum.Rec.Anlog 100 Unit/Ml 10 Ml Vial SUBCUT 42 unit BEDTIME LIBRADO Administration Insulin Human Lispro 20 unit 03/14/21 08:00 03/20/21 08:00 Insulin Lispro 100 Unit/Ml 3 Ml Vial SUBCUT Not Given TIDWM LIBRADO Insulin Human Lispro 0 unit 03/14/21 07:30 03/20/21 08:09 Insulin Lispro 100 Unit/Ml 3 Ml Vial SUBCUT 2 unit QIDACHS LIBRADO Administration Protocol Lactic Acid 1 appl 03/14/21 09:00 03/20/21 08:17 Ammonium Lactate 12 % Cream 140 Gm Tube TOPICAL 1 appl BID LIBRADO Administration Protocol Lisinopril 5 mg 03/18/21 09:10 03/20/21 08:13 Lisinopril 5 Mg Tablet PO 5 mg DAILY LIBRADO Administration Protocol Methadone HCl 50 mg 03/20/21 09:00 03/20/21 08:10 Methadone Hcl 20 Mg/2 Ml Oral.Conc PO 50 mg DAILY LIBRADO Administration Metoprolol Succinate 100 mg 03/14/21 09:00 03/20/21 08:13 Metoprolol Succinate Er 100 Mg Tab.Er.24h PO 100 mg DAILY LIBRADO Administration Protocol Patient Own 1 each 03/14/21 10:15 03/20/21 08:16 Medication ( PO 1 each Emtricitabine/ DAILY LIBRADO Administration Rilpivirine/ Tenofovir {Odefsey}) Ondansetron HCl 4 mg 03/13/21 20:20 Ondansetron Hcl 4 Mg/2 Ml Vial IVPUSH Q8H PRN Nausea and Vomiting Pharmacy Consult 1 each 03/13/21 20:20 Consult Rx Vancomycin Dosing MISCELLANE DAILY PRN Consult order Quetiapine Fumarate 100 mg 03/13/21 23:20 03/19/21 20:25 Quetiapine Fumarate 100 Mg Tablet PO 100 mg BEDTIME LIBRADO Administration Senna 8.6 mg 03/15/21 10:30 03/20/21 08:17 Sennosides 8.6 Mg Tablet PO Not Given DAILY LIBRADO Sodium Chloride 3 ml 03/14/21 00:00 03/20/21 08:15 0.9 % Sodium Chloride Flush 3 Ml Syringe IVFLUSH 3 ml QSHIFT LIBRADO Administration Vitamin D 50 mcg 03/14/21 09:00 03/20/21 08:12 Cholecalciferol (Vitamin D3) 25 Mcg Tablet PO 50 mcg DAILY LIBRADO Administration Time Spent With Patient Time: Total time spent is greater than 50% in coordination of care (as documented) at patient's floor/unit and/or counseling patient: Time with patient: 15 - 24 minutes Procedures Date of Service Date of Service: 03/20/21 Quality Stroke Does the patient have a stroke diagnosis?: No VTE Prior VTE?: No VTE Risk Level:: Medical - moderate - high VTE Device Contraindication: Treatment Not Indicated VTE Drug Contraindication: N/A - Med Ordered
[2021-03-20] MEDS: Insulin Lispro 100 UNIT/ML 3 ML VIAL 20 UNIT SUBCUT (12:08)
--- NOTE | 2021-03-20 12:09 | PM.DS ---
DS: Providers Provider Date of Service: 03/20/21 Date of admission: 03/13/21 20:13 Primary care physician: Suzie Estrada NP Consults: 03/13/21 20:20 Consult to General Surgery Routine Consulting Provider: Doug Wahl Reason for consultation: non-healing diabetic wound in r foot Has provider been notified: No Consult to Infectious Diseases Routine Consulting Provider: Sherin Del Castillo Reason for consultation: non-healing diabetic wound, osteo Has provider been notified: No 03/15/21 07:49 Consult to Vascular Surgery Routine Consulting Provider: Luke Billings Reason for consultation: Diabetic foot, OM, LE vascular eval. DS: Diagnosis Discharge Diagnosis (1) PAD (peripheral artery disease): Status: Acute DS: Medications Discharge Medications Home Medications: Home Medications Medication Instructions Recorded Confirmed ammonium lactate 12 % topical cream 1 appl TOPICAL BID 08/08/20 03/13/21 aspirin 81 mg tablet,delayed 81 mg PO DAILY 08/08/20 03/13/21 release blood sugar diagnostic #10 ea 08/08/20 10/16/20 cholecalciferol (vitamin D3) 50 50 mcg PO DAILY 08/08/20 03/13/21 mcg (2,000 unit) tablet dulaglutide 1.5 mg/0.5 mL 1.5 mg SUBCUT QWEEK 08/08/20 03/13/21 subcutaneous pen injector furosemide 20 mg tablet 20 mg PO DAILY PRN 08/08/20 03/13/21 hydrochlorothiazide 25 mg tablet 25 mg PO DAILY 08/08/20 03/13/21 insulin syringe-needle U-100 1 mL #10 ea 08/08/20 10/16/20 29 gauge x 1/2 metoprolol succinate 100 mg 100 mg PO DAILY 08/08/20 03/13/21 tablet,extended release 24 hr quetiapine 100 mg tablet 100 mg PO BEDTIME 08/08/20 03/13/21 lancets 33 gauge #100 ea 11/08/20 metformin 500 mg tablet,extended 1,000 mg PO DAILY 11/08/20 12/05/20 release 24 hr pen needle, diabetic 32 gauge x #50 ea 11/08/20/32 methadone 10 mg/mL oral concentrate 50 mg PO DAILY 11/12/20 03/13/21 emtricitabine 200 mg-rilpivirine 1 tab PO DAILY 12/05/20 03/13/21 25 mg-tenofovir alafenam 25 mg tablet (Odefsey) insulin aspart U-100 100 unit/mL 20 unit SUBCUT TIDWM 12/05/20 03/13/21 (3 mL) subcutaneous pen (Novolog Flexpen U-100 Insulin aspart) insulin degludec 100 unit/mL (3 60 unit SUBCUT DAILY 12/05/20 03/13/21 mL) subcutaneous pen (Tresiba FlexTouch U-100 insulin) Previous Rx's Medication Instructions Recorded ertapenem 1 gram solution for 1 g IV Q24H 35 Days ea 03/19/21 injection (Invanz) DS: Summary Hospital Course Hospital Course: patient was admitted for non healing diabetic foot ulcer, MRI showed right fifth toe OM with fracture. he underwent angiogram and successful plasty of right anterior tibial and peroneal arteries. course complicated by COLT creatniine was 1.5, resolved by time of discharge. patient will continue 6 weeks iv ertpaenem via picc at home. Time Spent with Patient Time attestation: Total time spent providing and/or coordinating discharge services: Discharge coordination time: Greater than 30 minutes Quality: Stroke Does the patient have a stroke diagnosis?: No Physical Exam Vital Signs: Vital Signs: Last Vital Signs Temp 96.9 F 03/20/21 11:16 Pulse 76 03/20/21 11:16 Resp 16 03/20/21 11:16 BP 165/75 H 03/20/21 11:16 Pulse Ox 99 03/20/21 11:16 Body Mass Index 31.9 General: AO X 3, no acute distress Resp: CTA bilateral CVS: S1,S2,RRR GI: soft, non tender, non distended Neuro: motor grossly intact Psych: appropriate affect DS: Data Data Completed and Pending Completed studies during hospitalization [Text1]: Procedures Excision of Left Foot Subcutaneous Tissue and Fascia, Open Approach (12/05/20) Excision of Left Upper Leg Skin, External Approach (12/05/20) Replacement of Left Foot Skin with Autologous Tissue Substitute, Partial Thickness, External Approach (12/05/20) Labs on day of discharge: Laboratory Results - last 24 hr 03/19/21 03/19/21 03/19/21 12:58 15:58 20:20 WBC RBC Hgb Hct MCV MCH MCHC RDW Plt Count MPV Absolute Nucleated RBC Nucleated RBC % (auto) Sodium Potassium Chloride Carbon Dioxide Anion Gap BUN Creatinine Estim Creat Clear Calc Estimated GFR POC Glucose 144 H 285 H 229 H Random Glucose Calcium Vancomycin Trough 03/19/21 03/20/21 03/20/21 20:46 05:59 05:59 WBC 7.0 RBC 2.83 L Hgb 9.1 L Hct 25.7 L MCV 90.8 MCH 32.2 MCHC 35.4 RDW 12.5 Plt Count 144 L MPV 11.3 Absolute Nucleated RBC 0.000 Nucleated RBC % (auto) 0.0 Sodium 141 Potassium 3.8 Chloride 107 Carbon Dioxide 28 Anion Gap 10 L BUN 10 Creatinine 0.90 Estim Creat Clear Calc 100.5 Estimated GFR > 60 POC Glucose Random Glucose 166 H Calcium 8.1 L Vancomycin Trough 14.0 03/20/21 03/20/21 07:52 11:15 WBC RBC Hgb Hct MCV MCH MCHC RDW Plt Count MPV Absolute Nucleated RBC Nucleated RBC % (auto) Sodium Potassium Chloride Carbon Dioxide Anion Gap BUN Creatinine Estim Creat Clear Calc Estimated GFR POC Glucose 154 H 293 H Random Glucose Calcium Vancomycin Trough Discharge Plan Discharge Patient Disposition: Home Health Service Discharge Diagnosis: OM Referrals: Suzie Main, DRISS [Primary Care Provider] - 1 Week Discharge Medications: New ertapenem [Invanz] 1 gram recon soln 1 g IV Q24H 35 Days RF: 0 Continued methadone 10 mg/mL Concentrate 50 mg PO DAILY RF: 0 insulin aspart U-100 [Novolog Flexpen U-100 Insulin] 100 unit/mL (3 mL) insulin pen 20 unit subcut TIDWM RF: 0 Tresiba FlexTouch U-100 100 unit/mL (3 mL) insulin pen 60 unit subcut DAILY RF: 0 Odefsey 200-25-25 mg tablet 1 tab PO DAILY RF: 0 hydrochlorothiazide 25 mg tablet 25 mg PO DAILY RF: 0 metoprolol succinate 100 mg tablet extended release 24 hr 100 mg PO DAILY RF: 0 quetiapine 100 mg tablet 100 mg PO BEDTIME RF: 0 (DME) blood sugar diagnostic Strip See Rx Instructions ea Not Applicable .MEDSUPPLY Qty: 10 RF: 0 aspirin 81 mg tablet,delayed release (DR/EC) 81 mg PO DAILY RF: 0 ammonium lactate 12 % cream 1 appl topical BID RF: 0 furosemide 20 mg tablet 20 mg PO DAILY PRN (Reason: swelling) RF: 0 (DME) insulin syringe-needle U-100 1 mL 29 gauge x 1/2 syringe See Rx Instructions ea .ROUTE TID Qty: 10 RF: 0 cholecalciferol (vitamin D3) 50 mcg (2,000 unit) tablet 50 mcg PO DAILY RF: 0 dulaglutide 1.5 mg/0.5 mL pen injector 1.5 mg subcut QWEEK RF: 0 Discharge Orders: Discharge Order (Routine); Ordered 03/20/21 Ordered By: Pino Pearson Diet: advance to usual diet Activity on Discharge: As tolerated Stand Alone Forms: Patient Portal Discharge page Activity Restrictions/Additional Instructions: Skin glue was used in your groin. Take it easy today and you may ambulate around the house. Within 24 hours you can resume normal activity you may climb a flight of stairs as tolerated Do not lift anything heavier than a gallon of milk for [address] Billings in follow-up in approximately 2 weeks time. you should already have an appointment if not please call my office at [phone] Please see above for any change in medications If you notice excessive bleeding from the groin please immediately call my office or return to the emergency room. Care Plan Goals: recovery Health Concerns: OM Plan of Treatment: 6 weeks total iv ertapenem Assessment: see above
--- NOTE | 2021-03-20 12:29 | W.MHC.F2F ---
Service Date Service Date: 03/20/21 Encounter Date of encounter: 03/20/21 Reasons for Services Reason for custodial: administration of IV, SQ, or IM injection, medication management, medication treatment and teach disease management Homebound: Leaving the home is medically contraindicated at this time without the asist of a device and/or another person due th the listed conditions above and below. Certification: Based on the above findings, I certify that this patient is confined to the home and needs intermittent custodial care, physical therapy and/or speech therapy, or continues to need occupational therapy. The patient is under my care, and I have initiated the establishment of the plan of care. The patient will be followed by a physician who will periodically review the plan of care.
--- NOTE | 2021-03-20 13:30 | MHC.CM.PN ---
PATIENT IS DISCHARGED HOME WITH [facility]. PATIENT AND FAMILY AWARE OF PLAN. IMM 03/19 IN CHART
== END 2021-03-20 14:48 | disposition home health service (06) | DRG 253 ==
LOC: HO.ED 20:55 → HO.S3 21:02
PROVIDERS: Student in an Organized Health Care Education/Training Program; Surgery Vascular Surgery; Admitting Provider Internal Medicine; Emergency Provider Emergency Medicine; PCP Registered Nurse; Visit Provider Internal Medicine
PROC: 047P3ZZ Dilation of Right Anterior Tibial Artery, Percutaneous Approach (ICD-10-PCS; principal; 2021-03-19 07:30)
DX: E11.51 Type 2 diabetes mellitus with diabetic peripheral angiopathy without gangrene (principal); F11.20 Opioid dependence, uncomplicated; M86.9 Osteomyelitis, unspecified; L97.516 Non-pressure chronic ulcer of other part of right foot with bone involvement without evidence of necrosis; M84.674A Pathological fracture in other disease, right foot, initial encounter for fracture; N17.9 Acute kidney failure, unspecified; E11.621 Type 2 diabetes mellitus with foot ulcer; K21.9 Gastro-esophageal reflux disease without esophagitis; F17.210 Nicotine dependence, cigarettes, uncomplicated; Z21 Asymptomatic human immunodeficiency virus [HIV] infection status; E11.69 Type 2 diabetes mellitus with other specified complication; E87.5 Hyperkalemia; D72.829 Elevated white blood cell count, unspecified; Z20.822 Contact with and (suspected) exposure to COVID-19; Z71.6 Tobacco abuse counseling; I70.235 Atherosclerosis of native arteries of right leg with ulceration of other part of foot; Z79.4 Long term (current) use of insulin; Z79.82 Long term (current) use of aspirin; Z79.899 Other long term (current) drug therapy
CPT/HCPCS: 0241U; 36415; 36573; 37228; 37232; 73660; 73720; 76937; 80048; 80202; 82565; 82947; 83605; 85025; 85027; 85652; 86140; 87040; 93925; 93971; 96361; 96365; 96375; 99152; 99153; 99285; A9585; C1725; C1751; C1760; C1769; C1887; J1335; J2543; J3370

== ENCOUNTER 2021-03-20 09:00 | Outpatient (RCR) | payer OTHER, SELFPAY | END 2021-04-19 12:16 | disposition home or self-care (01) | LOC: HO.WCC 09:00 | PROVIDERS: Visit Provider Surgery | DX: E11.621 Type 2 diabetes mellitus with foot ulcer (principal); L97.514 Non-pressure chronic ulcer of other part of right foot with necrosis of bone; I70.235 Atherosclerosis of native arteries of right leg with ulceration of other part of foot; E11.69 Type 2 diabetes mellitus with other specified complication; M86.9 Osteomyelitis, unspecified; E11.51 Type 2 diabetes mellitus with diabetic peripheral angiopathy without gangrene; E11.65 Type 2 diabetes mellitus with hyperglycemia; I10 Essential (primary) hypertension; B20 Human immunodeficiency virus [HIV] disease; F17.200 Nicotine dependence, unspecified, uncomplicated; Z79.2 Long term (current) use of antibiotics | CPT/HCPCS: 11042; 11044; 97597; 99212 ==

== ENCOUNTER 2021-03-26 | Outpatient (REF) | payer OTHER, SELFPAY ==
[2021-03-26 13:51] LABS: MANUAL DIFF FLAG NO
[2021-03-26 13:53] LABS: Basophils Absolute Auto 0.1 X10*3/uL (0.0-0.2); Basophils Percent Auto 0.8 % (0-2); Eosinophils Absolute Auto 0.3 X10*3/uL (0.0-0.4); Imm Gran Abs Auto 0.08 X10*3/uL (0.00-0.03); Imm Gran Pct Auto 0.8 % (0.0-0.4); Lymphocytes Absolute Auto 1.7 X10*3/uL (1.2-4.9); Lymphocytes Percent Auto 17.9 % (20-40); Mean Corpuscular HGB Conc 34.5 g/dl (31.0-36.0); Mean Corpuscular Hemoglobin 32.1 pg (27.0-33.0); Mean Corpuscular Volume 92.9 fL (80-98); Monocytes Absolute Auto 0.7 X10*3/uL (0.1-1.2); Monocytes Percent Auto 6.9 % (2-11); Neutrophils Absolute Auto 6.8 X10*3/uL (2.0-8.3); Neutrophils Percent Auto 70.6 % (45-73); Platelet Count 152 X10*3/uL (160-400); Red Blood Count 3.12 X10*6/uL (4.60-5.80); Red Cell Distribution Width 12.8 % (11.0-16.0); White Blood Count 9.6 X10*3/uL (4.8-10.8)
[2021-03-26 14:11] LABS: Anion Gap 16 (12-20); Blood Urea Nitrogen 25 mg/dL (9-16); Calcium 9.1 mg/dL (8.4-10.2); Carbon Dioxide 28 mmol/L (22-29); Chloride 100 mmol/L (96-108); Estimated Glomerular Filt Rate 57; Glucose Random 316 mg/dL (60-115); Potassium 4.7 mmol/L (3.3-5.1); Sodium 139 mmol/L (135-145)
== END 2021-03-26 00:01 | disposition home or self-care (01) ==
LOC: HO.HVNA
PROVIDERS: Visit Provider Internal Medicine
DX: M86.9 Osteomyelitis, unspecified (principal)
CPT/HCPCS: 36415; 80048; 85025

== ENCOUNTER → 2021-04-02 09:47 | Outpatient (BNVA) | payer OTHER, SELFPAY | PROVIDERS: PCP Registered Nurse; Referring Provider Registered Nurse; Visit Provider Surgery Vascular Surgery | DX: I73.9 Peripheral vascular disease, unspecified (principal) | CPT/HCPCS: 99212 ==

== ENCOUNTER 2021-04-04 12:02 | Outpatient (REF) | payer OTHER, SELFPAY ==
[2021-04-04 12:06] LABS: MANUAL DIFF FLAG NO
[2021-04-04 12:11] LABS: Basophils Absolute Auto 0.1 X10*3/uL (0.0-0.2); Basophils Percent Auto 0.8 % (0-2); Eosinophils Absolute Auto 0.3 X10*3/uL (0.0-0.4); Eosinophils Percent Auto 3.9 % (0-4); Hemoglobin 10.9 g/dl (14.0-18.0); Imm Gran Abs Auto 0.02 X10*3/uL (0.00-0.03); Imm Gran Pct Auto 0.3 % (0.0-0.4); Lymphocytes Absolute Auto 2.3 X10*3/uL (1.2-4.9); Lymphocytes Percent Auto 31.7 % (20-40); Mean Corpuscular HGB Conc 34.1 g/dl (31.0-36.0); Mean Corpuscular Hemoglobin 31.8 pg (27.0-33.0); Mean Corpuscular Volume 93.3 fL (80-98); Mean Platelet Volume 12.8 fL (9.4-12.4); Monocytes Absolute Auto 0.5 X10*3/uL (0.1-1.2); Monocytes Percent Auto 6.2 % (2-11); Neutrophils Absolute Auto 4.2 X10*3/uL (2.0-8.3); Neutrophils Percent Auto 57.1 % (45-73); Platelet Count 129 X10*3/uL (160-400); Red Blood Count 3.43 X10*6/uL (4.60-5.80); Red Cell Distribution Width 12.6 % (11.0-16.0); White Blood Count 7.4 X10*3/uL (4.8-10.8)
[2021-04-04 12:25] LABS: Anion Gap 15 (12-20); Blood Urea Nitrogen 32 mg/dL (9-16); Calcium 9.1 mg/dL (8.4-10.2); Carbon Dioxide 27 mmol/L (22-29); Chloride 100 mmol/L (96-108); Estimated Glomerular Filt Rate 56; Glucose Random 278 mg/dL (60-115); Sodium 137 mmol/L (135-145)
== END 2021-04-04 12:03 | disposition home or self-care (01) ==
LOC: HO.HVNA 12:02
PROVIDERS: Visit Provider Internal Medicine
DX: M86.9 Osteomyelitis, unspecified (principal)
CPT/HCPCS: 36415; 80048; 85025

== ENCOUNTER 2021-04-11 11:31 | Outpatient (REF) | payer OTHER, SELFPAY ==
[2021-04-11 11:36] LABS: MANUAL DIFF FLAG NO
[2021-04-11 11:43] LABS: Basophils Absolute Auto 0.1 X10*3/uL (0.0-0.2); Basophils Percent Auto 0.9 % (0-2); Eosinophils Absolute Auto 0.3 X10*3/uL (0.0-0.4); Eosinophils Percent Auto 3.3 % (0-4); Hematocrit 32.7 % (42-52); Imm Gran Abs Auto 0.03 X10*3/uL (0.00-0.03); Imm Gran Pct Auto 0.4 % (0.0-0.4); Lymphocytes Percent Auto 38.5 % (20-40); Mean Corpuscular HGB Conc 33.6 g/dl (31.0-36.0); Mean Corpuscular Hemoglobin 31.3 pg (27.0-33.0); Mean Corpuscular Volume 93.2 fL (80-98); Mean Platelet Volume 12.8 fL (9.4-12.4); Monocytes Absolute Auto 0.6 X10*3/uL (0.1-1.2); Monocytes Percent Auto 7.4 % (2-11); Neutrophils Absolute Auto 3.9 X10*3/uL (2.0-8.3); Neutrophils Percent Auto 49.5 % (45-73); Platelet Count 133 X10*3/uL (160-400); Red Blood Count 3.51 X10*6/uL (4.60-5.80); Red Cell Distribution Width 12.7 % (11.0-16.0); White Blood Count 7.9 X10*3/uL (4.8-10.8)
[2021-04-11 12:10] LABS: Anion Gap 14 (12-20); Blood Urea Nitrogen 33 mg/dL (9-16); Calcium 9.4 mg/dL (8.4-10.2); Carbon Dioxide 27 mmol/L (22-29); Chloride 102 mmol/L (96-108); Estimated Glomerular Filt Rate 54; Glucose Random 275 mg/dL (60-115); Potassium 4.7 mmol/L (3.3-5.1); Sodium 138 mmol/L (135-145)
== END 2021-04-11 11:32 | disposition home or self-care (01) ==
LOC: HO.LNP 11:31
PROVIDERS: Visit Provider Internal Medicine
DX: L97.519 Non-pressure chronic ulcer of other part of right foot with unspecified severity (principal); L03.115 Cellulitis of right lower limb; Z79.2 Long term (current) use of antibiotics
CPT/HCPCS: 80048; 85025

== ENCOUNTER → 2021-04-16 13:07 | Outpatient (BNVA) | payer OTHER, SELFPAY | PROVIDERS: Visit Provider Surgery Vascular Surgery | DX: I73.9 Peripheral vascular disease, unspecified (principal); M86.9 Osteomyelitis, unspecified | CPT/HCPCS: 99212 ==

== ENCOUNTER 2021-04-18 11:14 | Outpatient (REF) | payer OTHER, SELFPAY ==
[2021-04-18 11:15] LABS: MANUAL DIFF FLAG NO
[2021-04-18 11:21] LABS: Basophils Absolute Auto 0.1 X10*3/uL (0.0-0.2); Basophils Percent Auto 1.2 % (0-2); Eosinophils Absolute Auto 0.3 X10*3/uL (0.0-0.4); Eosinophils Percent Auto 3.9 % (0-4); Hematocrit 32.7 % (42-52); Hemoglobin 11.3 g/dl (14.0-18.0); Imm Gran Abs Auto 0.03 X10*3/uL (0.00-0.03); Imm Gran Pct Auto 0.4 % (0.0-0.4); Lymphocytes Absolute Auto 2.7 X10*3/uL (1.2-4.9); Lymphocytes Percent Auto 32.2 % (20-40); Mean Corpuscular HGB Conc 34.6 g/dl (31.0-36.0); Mean Corpuscular Hemoglobin 31.8 pg (27.0-33.0); Mean Corpuscular Volume 92.1 fL (80-98); Mean Platelet Volume 12.5 fL (9.4-12.4); Monocytes Absolute Auto 0.6 X10*3/uL (0.1-1.2); Monocytes Percent Auto 6.5 % (2-11); Neutrophils Absolute Auto 4.7 X10*3/uL (2.0-8.3); Neutrophils Percent Auto 55.8 % (45-73); Platelet Count 122 X10*3/uL (160-400); Red Blood Count 3.55 X10*6/uL (4.60-5.80); Red Cell Distribution Width 12.2 % (11.0-16.0); White Blood Count 8.5 X10*3/uL (4.8-10.8)
[2021-04-18 11:58] LABS: Anion Gap 15 (12-20); Blood Urea Nitrogen 27 mg/dL (9-16); Calcium 8.8 mg/dL (8.4-10.2); Carbon Dioxide 24 mmol/L (22-29); Chloride 101 mmol/L (96-108); Estimated Glomerular Filt Rate 57; Glucose Random 212 mg/dL (60-115); Sodium 135 mmol/L (135-145)
== END 2021-04-18 11:15 | disposition home or self-care (01) ==
LOC: HO.HVNA 11:14
PROVIDERS: Visit Provider Internal Medicine
DX: E11.51 Type 2 diabetes mellitus with diabetic peripheral angiopathy without gangrene (principal); L97.519 Non-pressure chronic ulcer of other part of right foot with unspecified severity; Z79.2 Long term (current) use of antibiotics
CPT/HCPCS: 36415; 80048; 85025

== ENCOUNTER 2021-04-22 11:47 | Day surgery (SDC) | payer OTHER, SELFPAY ==
--- NOTE | 2021-04-19 09:45 | HO.ANESPROP2 ---
Documented by User: Nayla Ko NP 04/19/21 09:51 HPI - Anesthesia Eval Consult details Narrative: 56yo M for Toe Amputation 5th toe s/p debridement 12/2020 with GA-LMA 5 Methadone daily PMFSH Active Problems Active Problems: All Active Problems (Updated 04/02/21 @ 12:11 by Luke Billings MD) PAD (peripheral artery disease) (Acute) Osteomyelitis (Acute) Toe ulcer (Acute) Right leg swelling (Acute) Leukocytosis (Acute) Non-healing wound (Acute) Acute kidney injury (Acute) H/O skin graft (Acute) Hypertension (Acute) Hyperlipidemia (Acute) Hx of drug dependence (Acute) Hepatitis (Acute) GERD (gastroesophageal reflux disease) (Acute) Diabetes (Acute) Depression (Acute) COVID-19 vaccine administered (Acute) Cirrhosis (Acute) Diabetic foot ulcer (Acute) PVD (peripheral vascular disease) (Acute) Osteomyelitis (Acute) HIV (human immunodeficiency virus infection) (Acute) Past Medical History Medical History Cirrhosis COVID-19 vaccine administered Depression Diabetes GERD (gastroesophageal reflux disease) Hepatitis History of hyperbaric oxygen therapy HIV (human immunodeficiency virus infection) Hx of drug dependence Hyperlipidemia Hypertension Osteomyelitis Toe ulcer Family History Family History Father Diabetes HTN (hypertension) Mother HTN (hypertension) Daughter No problems noted. Surgical History Surgical History H/O skin graft S/P angiogram of extremity Status post debridement Social History Social History Household Members: Family Housing: House Are you a primary care consultant to a significant other at home: No Do you presently have visiting nurse or other home services: Yes Alcohol intake: never Patient Tobacco Use Status: Current everyday Tobacco user Tobacco use type: Cigarette Cigarette Packs Per Day: 0 Cigarettes Per Day: 5 Years Smoked: 35 Smoked in Last 30 Days: Yes e-Cigarette/Vaping Use: Never Used Second Hand Smoke Exposure: No Use of substances other than those prescribed or required for medical reasons: Yes 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 Are you DNR?: No Advance Directives: Yes Advance Directives Information Provided: Yes Advance Directives on File: Yes Advance Directives Date on File: 03/13/21 service: No Current occupational status: disabled Meds Allergies Allergy/AdvReac Type Severity Reaction Status Date / Time trazodone [TRAZODONE] Allergy Unknown UNKNOWN Verified 04/22/21 12:01 Home Medications Medication Instructions Recorded Confirmed Last Taken Type ammonium lactate 12 % topical cream 1 appl TOPICAL BID 08/08/20 03/13/21 Unknown History aspirin 81 mg tablet,delayed 81 mg PO DAILY 08/08/20 03/13/21 04/20/21 History release blood sugar diagnostic #10 ea 08/08/20 10/16/20 Unknown History cholecalciferol (vitamin D3) 50 50 mcg PO DAILY 08/08/20 03/13/21 Unknown History mcg (2,000 unit) tablet dulaglutide 1.5 mg/0.5 mL 1.5 mg SUBCUT QWEEK 08/08/20 03/13/21 04/18/21 History subcutaneous pen injector furosemide 20 mg tablet 20 mg PO DAILY PRN 08/08/20 03/13/21 Unknown History hydrochlorothiazide 25 mg tablet 25 mg PO DAILY 08/08/20 03/13/21 Unknown History insulin syringe-needle U-100 1 mL #10 ea 08/08/20 10/16/20 Unknown History 29 gauge x 1/2 metoprolol succinate 100 mg 100 mg PO DAILY 08/08/20 03/13/21 11/14/20 09:30 History tablet,extended release 24 hr quetiapine 100 mg tablet 100 mg PO BEDTIME 08/08/20 03/13/21 Unknown History lancets 33 gauge #100 ea 11/08/20 Unknown History metformin 500 mg tablet,extended 1,000 mg PO DAILY 11/08/20 12/05/20 Unknown History release 24 hr pen needle, diabetic 32 gauge x #50 ea 11/08/20 Unknown History methadone 10 mg/mL oral concentrate 50 mg PO DAILY 11/12/20 03/13/21 04/22/21 10:30 History emtricitabine 200 mg-rilpivirine 1 tab PO DAILY 12/05/20 03/13/21 Unknown History 25 mg-tenofovir alafenam 25 mg tablet (Bryan) insulin aspart U-100 100 unit/mL 20 unit SUBCUT TIDWM 12/05/20 03/13/21 Unknown History (3 mL) subcutaneous pen (Novolog Flexpen U-100 Insulin aspart) insulin degludec 100 unit/mL (3 60 unit SUBCUT DAILY 12/05/20 03/13/21 Unknown History mL) subcutaneous pen (Tresiba FlexTouch U-100 insulin) insulin degludec 100 unit/mL (3 60 unit SUBCUT DAILY 04/22/21 04/22/21 04/21/21 21:30 History mL) subcutaneous pen (Tresiba 30 units FlexTouch U-100 insulin) Exam Exam Date and Time: April 19, 2021 0945 Pertinent Lab Results Pertinent Lab Results: Laboratory Tests 04/18/21 04/18/21 10:21 10:21 WBC 8.5 Hgb 11.3 L Hct 32.7 L Plt Count 122 L Sodium 135 Potassium 5.0 Chloride 101 Carbon Dioxide 24 BUN 27 H Creatinine 1.30 Narrative Narrative: EKG 11/2020 Vent. Rate : 072 BPM ? ? Atrial Rate : 072 BPM ?? P-R Int : 128 ms? QRS Dur : 076 ms ? ? QT Int : 382 ms ? ? ? P-R-T Axes : 019 -14 -06 degrees ?? QTc Int : 418 ms ? Normal sinus rhythm Normal ECG When compared with ECG of 01-AUG-2020 09:17, No significant change was found ECHO 08/2020 Conclusions: - The left ventricular systolic function is normal.? The visually estimated ejection fraction is between 65-70%. ? - No obvious valvular pathology seen on this study.? NM alexandru perf SPECT rest & str 08/2020 Impression: ? 1.? Myocardial perfusion imaging study shows normal myocardial perfusion 2.? Gated LVEF is 66% 3. Transient ischemic dilatation not present ? EKG is nondiagnostic for ischemia Assessment and Plan Assessment Anesthesia Assessment: Chart Reviewed Documented by User: Anastasiya Mancuso MD 04/22/21 14:01 COUNTS INCLUDE 234 BEDS AT THE [facility] Past Medical History Medical History Cirrhosis COVID-19 vaccine administered Depression Diabetes GERD (gastroesophageal reflux disease) Hepatitis History of hyperbaric oxygen therapy HIV (human immunodeficiency virus infection) Hx of drug dependence Hyperlipidemia Hypertension Osteomyelitis Toe ulcer Family History Family History Father Diabetes HTN (hypertension) Mother HTN (hypertension) Daughter No problems noted. Family history of problems with anesthesia: No Surgical History Surgical History H/O skin graft S/P angiogram of extremity Status post debridement History of Problems with Anesthesia: No Social History Social History Household Members: Family Housing: House Are you a primary care consultant to a significant other at home: No Do you presently have visiting nurse or other home services: Yes Alcohol intake: never Patient Tobacco Use Status: Current everyday Tobacco user Tobacco use type: Cigarette Cigarette Packs Per Day: 0 Cigarettes Per Day: 5 Years Smoked: 35 Smoked in Last 30 Days: Yes e-Cigarette/Vaping Use: Never Used Second Hand Smoke Exposure: No Use of substances other than those prescribed or required for medical reasons: Yes 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 Are you DNR?: No Advance Directives: Yes Advance Directives Information Provided: Yes Advance Directives on File: Yes Advance Directives Date on File: 03/13/21 service: No Current occupational status: disabled Meds Allergies Allergy/AdvReac Type Severity Reaction Status Date / Time trazodone [TRAZODONE] Allergy Unknown UNKNOWN Verified 04/22/21 12:01 Home Medications Medication Instructions Recorded Confirmed Last Taken Type ammonium lactate 12 % topical cream 1 appl TOPICAL BID 08/08/20 03/13/21 Unknown History aspirin 81 mg tablet,delayed 81 mg PO DAILY 08/08/20 03/13/21 04/20/21 History release blood sugar diagnostic #10 ea 08/08/20 10/16/20 Unknown History cholecalciferol (vitamin D3) 50 50 mcg PO DAILY 08/08/20 03/13/21 Unknown History mcg (2,000 unit) tablet dulaglutide 1.5 mg/0.5 mL 1.5 mg SUBCUT QWEEK 08/08/20 03/13/21 04/18/21 History subcutaneous pen injector furosemide 20 mg tablet 20 mg PO DAILY PRN 08/08/20 03/13/21 Unknown History hydrochlorothiazide 25 mg tablet 25 mg PO DAILY 08/08/20 03/13/21 Unknown History insulin syringe-needle U-100 1 mL #10 ea 08/08/20 10/16/20 Unknown History 29 gauge x 1/2 metoprolol succinate 100 mg 100 mg PO DAILY 08/08/20 03/13/21 11/14/20 09:30 History tablet,extended release 24 hr quetiapine 100 mg tablet 100 mg PO BEDTIME 08/08/20 03/13/21 Unknown History lancets 33 gauge #100 ea 11/08/20 Unknown History metformin 500 mg tablet,extended 1,000 mg PO DAILY 11/08/20 12/05/20 Unknown History release 24 hr pen needle, diabetic 32 gauge x #50 ea 11/08/20 Unknown History methadone 10 mg/mL oral concentrate 50 mg PO DAILY 11/12/20 03/13/21 04/22/21 10:30 History emtricitabine 200 mg-rilpivirine 1 tab PO DAILY 12/05/20 03/13/21 Unknown History 25 mg-tenofovir alafenam 25 mg tablet (Bryan) insulin aspart U-100 100 unit/mL 20 unit SUBCUT TIDWM 12/05/20 03/13/21 Unknown History (3 mL) subcutaneous pen (Novolog Flexpen U-100 Insulin aspart) insulin degludec 100 unit/mL (3 60 unit SUBCUT DAILY 12/05/20 03/13/21 Unknown History mL) subcutaneous pen (Tresiba FlexTouch U-100 insulin) insulin degludec 100 unit/mL (3 60 unit SUBCUT DAILY 04/22/21 04/22/21 04/21/21 21:30 History mL) subcutaneous pen (Tresiba 30 units FlexTouch U-100 insulin) Exam Height,Weight and Vital Signs: Height 5 ft 7 in Weight 92.533 kg Vital Signs Temp Pulse Resp BP Pulse Ox 97.1 F 78 16 145/71 H 100 04/22/21 12:24 09/20/21 12:24 04/22/21 12:24 04/22/21 12:24 04/22/21 12:24 Pertinent Lab Results Pertinent Lab Results: Laboratory Tests 04/18/21 04/18/21 10:21 10:21 WBC 8.5 Hgb 11.3 L Hct 32.7 L Plt Count 122 L Sodium 135 Potassium 5.0 Chloride 101 Carbon Dioxide 24 BUN 27 H Creatinine 1.30 Lab Results 04/22/21 Range/Units 12:16 POC Glucose 314 H (60-115) mg/dL Airway Mallampati Class: III TM Dist: >3cm Neck ROM: Full Loose/Missing/Broken Teeth: Yes (Broken, missing) Heart: RRR Lungs: CTAB Assessment and Plan Assessment Anesthesia Assessment: Anesthesia Plan Discussed Final Anesthetic Review Family History of Problems with Anesthesia: No History of Problems with Anesthesia: No NPO: Yes ASA Class: III Final Preanesthetic Review: No Changes in Pt Med Stat, Meds/Allgs Chart Reviewed, Consent Obtained/Reviewed and Anes Risks/Benef Reviewed Patient Risk: Intermediate Procedure Risk: Low Assessment/Block/Sedation in SS: Assess/Block/Sedation-SS Anesthetic Plan Anesthetic Plan: GA Disposition: Standard PACU
--- NOTE | 2021-04-22 11:31 | MHC.SHP ---
Pre-Procedural Eval Section A Date of Service: 04/22/21 The patient is an INPATIENT: No The History & Physical has been completed within 30 days and I have reviewed it.: Yes Section B Chief Complaint: PVD,ulcer Allergies: Allergies Allergy/AdvReac Type Severity Reaction Status Date / Time trazodone [TRAZODONE] Allergy Unknown UNKNOWN Verified 04/16/21 13:16 Plan I have reviewed the history and physical and performed a pertinent physical examination on my patient. No changes have occurred unless specified.
[2021-04-22 12:02] VITALS: BMI 31.9
[2021-04-22 12:23] LABS: Glucose, Whole Blood 314 mg/dL (60-115)
[2021-04-22 12:24] VITALS: BP 145/71; PULSE 78; RESP 16; TEMP 36.2; O2SAT 100
--- NOTE | 2021-04-22 12:45 | PC.NURSE ---
Anesthesia Dr. Ryder made aware that patients blood sugar results were 314 in preop. No new orders at this time. Okay to proceed with surgery.
[2021-04-22] MEDS: Lactated Ringers 1,000 ML 100 ML IVCONT (13:10)
[2021-04-22 13:48] VITALS: BP 113/73; PULSE 80; RESP 10; TEMP 36; O2SAT 100
[2021-04-22 13:53] VITALS: BP 141/68; PULSE 80; RESP 10; O2SAT 99
[2021-04-22 13:58] VITALS: BP 128/78; PULSE 78; RESP 10; O2SAT 99
[2021-04-22 14:03] VITALS: BP 144/73; PULSE 79; RESP 12; O2SAT 98
--- NOTE | 2021-04-22 14:04 | P.OP_ITS ---
Operative Note Operative Note Date of Service: 04/22/21 Narrative: Operative note by [facility] Preoperative diagnosis: Right 5th toe nonhealing ulcer Postoperative diagnosis: Same Procedure: Her right 5th toe amputation Surgeon:Luke Billings M.D. Software Sales Manager: None Anesthesia: General Specimens: 1 Drains: None Estimated blood loss: Minimal Indications: 56-year-old gentleman with history of peripheral vascular disease and diabetes has a nonhealing right 5th toe ulcer. This has been extending into bone. There has been a significant period of conservative management with the wound remains nonhealing. He now presents for amputation of that right 5th toe. The patient has signed the informed consent after reviewing risks, complications, benefits, and alternatives previously discussed with the patient. The patient was given the opportunity to ask any additional questions or voice any concerns. All questions were answered to the patient's satisfaction. Procedure in detail: Patient was brought to the OR prior to which a time-out was called for patient identification and site verification a fishmouth incision was carried out over the 5th toe. This was taken down through the bone muscle down to the metatarsal head. This was then excised in its entirety. The of note the bone had totally disintegrated. It had to be removed piecemeal. The metatarsal head was left in its entirety. Once this was accomplished the area was irrigated out thoroughly. We then placed a 2 x 3 piece of epi Fix. Once this was done deep layer was reapproximated using 2 0 poly Sorb. Finally skin was closed using a 3-0 nylon in a mattress fashion. Xeroform and a sterile dressing were applied. At the end the case sponge instrument counts were correct. It patient tolerated the procedure well and was returned to recovery with stable vitals. This note is constructed using voice recognition software. While every effort has been made to ensure accuracy, concrete tile machine operator errors may have been included. Thank you for allowing me to participate in the care of your patient. Yours sincerely, Luke Billings MD, FACS, R.P.V.I.
[2021-04-22 14:18] VITALS: BP 134/71; PULSE 78; RESP 14; TEMP 36.3; O2SAT 97
== END 2021-04-22 15:00 | disposition home or self-care (01) ==
PROVIDERS: PCP Registered Nurse; Visit Provider Surgery Vascular Surgery
PROC: (CPT 28820; principal; 2021-04-22 13:10)
DX: E11.621 Type 2 diabetes mellitus with foot ulcer (principal); L97.516 Non-pressure chronic ulcer of other part of right foot with bone involvement without evidence of necrosis; M86.171 Other acute osteomyelitis, right ankle and foot; M86.671 Other chronic osteomyelitis, right ankle and foot; I73.9 Peripheral vascular disease, unspecified; I10 Essential (primary) hypertension; Z21 Asymptomatic human immunodeficiency virus [HIV] infection status
CPT/HCPCS: 28820; 82947; 88305; 88311; J0690; J2250; J2405; J3010; Q4186

== ENCOUNTER → 2021-04-26 14:26 | Outpatient (BNVA) | payer OTHER, SELFPAY | PROVIDERS: Visit Provider Internal Medicine | DX: I73.9 Peripheral vascular disease, unspecified (principal); M86.9 Osteomyelitis, unspecified | CPT/HCPCS: 99212 ==

== ENCOUNTER → 2021-05-07 13:37 | Outpatient (BNVA) | payer OTHER, SELFPAY | PROVIDERS: PCP Registered Nurse; Visit Provider Surgery Vascular Surgery | DX: I73.9 Peripheral vascular disease, unspecified (principal); Z89.421 Acquired absence of other right toe(s) | CPT/HCPCS: 99212 ==

== ENCOUNTER → 2021-05-28 13:24 | Outpatient (BNVA) | payer OTHER, SELFPAY | PROVIDERS: PCP Registered Nurse; Visit Provider Surgery Vascular Surgery | DX: I73.9 Peripheral vascular disease, unspecified (principal) | CPT/HCPCS: 99212 ==

== ENCOUNTER → 2021-06-20 14:07 | Outpatient (BNVA) | payer OTHER, SELFPAY | PROVIDERS: PCP Registered Nurse; Visit Provider Surgery Vascular Surgery | DX: I73.9 Peripheral vascular disease, unspecified (principal); M86.8X8 Other osteomyelitis, other site; K74.60 Unspecified cirrhosis of liver; I10 Essential (primary) hypertension; E78.5 Hyperlipidemia, unspecified; B19.9 Unspecified viral hepatitis without hepatic coma; B20 Human immunodeficiency virus [HIV] disease; F17.210 Nicotine dependence, cigarettes, uncomplicated; F11.20 Opioid dependence, uncomplicated; F15.20 Other stimulant dependence, uncomplicated; Z89.421 Acquired absence of other right toe(s); Z83.3 Family history of diabetes mellitus; Z82.49 Family history of ischemic heart disease and other diseases of the circulatory system; Z88.6 Allergy status to analgesic agent; Z79.4 Long term (current) use of insulin; Z79.84 Long term (current) use of oral hypoglycemic drugs; Z79.899 Other long term (current) drug therapy | CPT/HCPCS: 99212 ==

== ENCOUNTER → 2021-07-11 13:21 | Outpatient (BNVA) | payer OTHER, SELFPAY | PROVIDERS: PCP Registered Nurse; Referring Provider Registered Nurse; Visit Provider Surgery Vascular Surgery | DX: I73.9 Peripheral vascular disease, unspecified (principal); Z89.421 Acquired absence of other right toe(s) | CPT/HCPCS: 99212 ==

== ENCOUNTER → 2021-08-15 10:20 | Outpatient (BNVA) | payer OTHER, SELFPAY | PROVIDERS: PCP Registered Nurse; Visit Provider Surgery Vascular Surgery | DX: I73.9 Peripheral vascular disease, unspecified (principal); Z89.421 Acquired absence of other right toe(s) | CPT/HCPCS: 99212 ==

== ENCOUNTER 2021-09-12 09:30 | Outpatient (REF) | payer OTHER, SELFPAY ==
--- NOTE | ~2021-09-12 | US_ITS ---
EXAMINATION: COLOR-FLOW DUPLEX IMAGING OF THE BILATERAL LOWER EXTREMITY ARTERIAL SYSTEM. VELOCITY MEASUREMENTS THROUGHOUT THE FEMORAL ARTERIES WITH ANKLE-BRACHIAL PERIPHERAL ARTERIAL TESTING. Interventional Radiologist: Brock Shen M.D., F.S.I.R., F.A.C.R. CLINICAL INFORMATION: This is a 56-year-old male with bilateral peripheral arterial disease. Comparison: Comparison is made to a previous study dated 11/12/2020. RIGHT FEMORAL RUNOFF VELOCITIES: The right common femoral artery measures 164 cm/s and monophasic. Previously, 219 cm/s and biphasic. The right profunda femoral artery is 105 cm/s and monophasic. Previously, 130 cm/s and is biphasic. Right proximal superficial femoral artery measures 108 cm/s and monophasic. Previously, 105 cm/s and biphasic. Mid superficial femoral artery is 97 cm/s and monophasic. Previously, 105 cm/s and biphasic. Distal right superficial femoral artery measures 79 cm/s and monophasic. Previously, 103 cm/s and is biphasic. Right popliteal velocity measures 53 cm/s and monophasic. Previously, 62 cm/s and is biphasic. The posterior tibial artery velocity measures 98 cm/s and monophasic. Previously, 66 cm/s and was biphasic. The right ankle-brachial index is 0.70. Previously, 0.71. LEFT FEMORAL RUNOFF VELOCITIES: The left common femoral artery measures 280 cm/s and triphasic. Previously, 375 cm/s and biphasic. The left profunda femoral artery is 97 cm/s and triphasic. Previously, 146 cm/s and is triphasic. Left proximal superficial femoral artery measures 149 cm/s and triphasic. Previously, 140 cm/s and biphasic. Mid superficial femoral artery is 124 cm/s and triphasic. Previously, 137 cm/s and biphasic. Distal left superficial femoral artery measures 151 cm/s and triphasic. Previously, 225 cm/s and is biphasic. Left popliteal velocity measures 73 cm/s and triphasic. Previously, 78 cm/s and is biphasic. The posterior tibial artery velocity measures 54 cm/s and monophasic. Previously, 66 cm/s and was biphasic. The right ankle-brachial index is 0.73. Previously, 0.61. Atherosclerotic plaque is seen throughout the arteries bilaterally. US/US arterial duplex LE BI IMPRESSION: 1. Bilateral abnormal peripheral arterial testing with abnormal ankle-brachial indices and velocity measurements. 2. The previous elevated velocity in the right common femoral artery is not apparent on the current study. However, the waveforms are monophasic throughout the Doppler study and the ankle-brachial index is decreased. This may be a sign of aortoiliac disease which could not be imaged. 3. The previous 2-1 velocity shift with an elevated velocity in the distal left superficial femoral artery is not apparent on the current study. However, there are elevated velocities again noted in the left common femoral artery and an abnormal ankle-brachial index. This may be indicative of bilateral aortoiliac inflow disease.
== END 2021-09-12 09:31 | disposition home or self-care (01) ==
LOC: HO.US 09:30
PROVIDERS: Visit Provider Surgery Vascular Surgery
DX: I73.9 Peripheral vascular disease, unspecified (principal)
CPT/HCPCS: 93923; 93925

== ENCOUNTER → 2021-09-17 11:37 | Outpatient (BNVA) | payer OTHER, SELFPAY | PROVIDERS: Visit Provider Surgery Vascular Surgery | DX: I73.9 Peripheral vascular disease, unspecified (principal) | CPT/HCPCS: 99212 ==

== ENCOUNTER 2022-03-31 08:45 | Outpatient (REF) | payer OTHER, SELFPAY ==
--- NOTE | ~2022-03-31 | US_ITS ---
EXAMINATION: ANKLE-BRACHIAL INDICES SINGLE LEVEL PULSE VOLUME RECORDING ARTERIAL DUPLEX BILATERAL LEGS CLINICAL INFORMATION: Peripheral arterial disease COMPARISON: 09/12/21 TECHNIQUE: Ankle-brachial indices and PVR at the ankle were obtained. Duplex Doppler of the bilateral lower extremity arterial systems was performed. FINDINGS: RIGHT: Ankle-brachial index: 0.57. Previous 0.70. PVR: Abnormal Common femoral: PSV 191 cm/s. Monophasic waveform. Moderate focal stenosis. Deep femoral: PSV 143 cm/s. Monophasic waveform. Proximal superficial femoral: PSV 123 cm/s. Monophasic waveform. Mid superficial femoral: PSV 128 cm/s. Monophasic waveform. Distal superficial femoral: PSV 44 cm/s. Monophasic waveform. Popliteal: PSV 51 cm/s. Monophasic waveform. Posterior tibial: PSV 48 cm/s. Monophasic waveform. Peroneal: PSV 29 cm/s. Monophasic waveform. LEFT: Ankle-brachial index: 0.65. Previous 0.73. PVR: Mildly abnormal Common femoral: PSV 284 cm/s. Monophasic waveform. Deep femoral: PSV 123 cm/s. Triphasic waveform. Proximal superficial femoral: PSV 178 cm/s. Monophasic waveform. Mid superficial femoral: PSV 255 cm/s. Monophasic waveform. Distal superficial femoral: PSV 46 cm/s. Monophasic waveform. Popliteal: PSV 73 cm/s. Monophasic waveform. Posterior tibial: PSV 49 cm/s. Monophasic waveform. Peroneal: PSV 24 cm/s. Monophasic waveform. US/US arterial duplex LE BI IMPRESSION: Right lower extremity: Ankle-brachial index 0.57 (previous 0.70) and abnormal PVR waveform consistent with moderate peripheral arterial disease. Monophasic waveforms are seen throughout the right lower extremity which is consistent with hemodynamically significant inflow disease. There is patent moderate focal stenosis in the common femoral artery. Left lower extremity: Ankle-brachial index 0.65 (previous 0.73) and mildly abnormal PVR waveform consistent with moderate peripheral arterial disease. Monophasic waveforms are seen throughout the left lower extremity which is consistent with hemodynamically significant inflow disease.
--- NOTE | ~2022-03-31 | US_ITS ---
EXAMINATION: ANKLE-BRACHIAL INDICES SINGLE LEVEL PULSE VOLUME RECORDING ARTERIAL DUPLEX BILATERAL LEGS CLINICAL INFORMATION: Peripheral arterial disease COMPARISON: 09/12/21 TECHNIQUE: Ankle-brachial indices and PVR at the ankle were obtained. Duplex Doppler of the bilateral lower extremity arterial systems was performed. FINDINGS: RIGHT: Ankle-brachial index: 0.57. Previous 0.70. PVR: Abnormal Common femoral: PSV 191 cm/s. Monophasic waveform. Moderate focal stenosis. Deep femoral: PSV 143 cm/s. Monophasic waveform. Proximal superficial femoral: PSV 123 cm/s. Monophasic waveform. Mid superficial femoral: PSV 128 cm/s. Monophasic waveform. Distal superficial femoral: PSV 44 cm/s. Monophasic waveform. Popliteal: PSV 51 cm/s. Monophasic waveform. Posterior tibial: PSV 48 cm/s. Monophasic waveform. Peroneal: PSV 29 cm/s. Monophasic waveform. LEFT: Ankle-brachial index: 0.65. Previous 0.73. PVR: Mildly abnormal Common femoral: PSV 284 cm/s. Monophasic waveform. Deep femoral: PSV 123 cm/s. Triphasic waveform. Proximal superficial femoral: PSV 178 cm/s. Monophasic waveform. Mid superficial femoral: PSV 255 cm/s. Monophasic waveform. Distal superficial femoral: PSV 46 cm/s. Monophasic waveform. Popliteal: PSV 73 cm/s. Monophasic waveform. Posterior tibial: PSV 49 cm/s. Monophasic waveform. Peroneal: PSV 24 cm/s. Monophasic waveform. US/US CELINA complete IMPRESSION: Right lower extremity: Ankle-brachial index 0.57 (previous 0.70) and abnormal PVR waveform consistent with moderate peripheral arterial disease. Monophasic waveforms are seen throughout the right lower extremity which is consistent with hemodynamically significant inflow disease. There is patent moderate focal stenosis in the common femoral artery. Left lower extremity: Ankle-brachial index 0.65 (previous 0.73) and mildly abnormal PVR waveform consistent with moderate peripheral arterial disease. Monophasic waveforms are seen throughout the left lower extremity which is consistent with hemodynamically significant inflow disease.
== END 2022-03-31 08:46 | disposition home or self-care (01) ==
LOC: HO.US 08:45
PROVIDERS: Visit Provider Surgery Vascular Surgery
DX: I73.9 Peripheral vascular disease, unspecified (principal)
CPT/HCPCS: 93923; 93925

== ENCOUNTER → 2022-07-29 10:46 | Outpatient (BNVA) | payer OTHER, SELFPAY | PROVIDERS: Visit Provider Surgery Vascular Surgery | DX: I73.9 Peripheral vascular disease, unspecified (principal); Z89.421 Acquired absence of other right toe(s) | CPT/HCPCS: 99212 ==

== ENCOUNTER 2023-01-05 12:32 | Outpatient (REF) | payer OTHER, SELFPAY ==
--- NOTE | ~2023-01-05 | US_ITS ---
EXAMINATION: US RETROPERITONEAL LIMITED (AORTA) CLINICAL INFORMATION: Peripheral vascular disease. COMPARISON: None available. TECHNIQUE: White-scale, color Doppler and spectral Doppler evaluation of the abdominal aorta. FINDINGS: The aorta is normal. The measurements of the aorta in maximum AP dimensions is as follows: Proximal: 2.4 cm. Mid: 1.9 cm. Distal: 1.5 cm. PSV: 75 cm/s (proximal and mid segments). The measurements of the common iliac arteries in maximum AP and TRV dimensions are as follows: Right Common Iliac Artery: 0.9 cm. Left Common Iliac Artery: 0.8 cm. US/US abdominal aortic aneurysm IMPRESSION: No abdominal aortic or bilateral common iliac artery aneurysm is seen.
--- NOTE | ~2023-01-05 | US_ITS ---
EXAMINATION: Noninvasive assessment of the bilateral lower extremities with ARTERIAL DUPLEX and ANKLE BRACHIAL INDICES (ABIs). CLINICAL INFORMATION: Peripheral vascular disease, follow-up TECHNIQUE: Duplex Doppler techniques with waveform analysis and measurement of velocities in the bilateral common femoral, profunda femoris, superficial femoral, popliteal and tibial arteries were performed. Additionally, ankle pulse volume recordings, ankle pressure measurements and ankle brachial indices were obtained of the lower extremity arterial system bilaterally. The study was performed only at rest. Additional duplex evaluation of the abdominal aorta and bilateral iliac arteries was performed. This portion of the study was dictated separately however velocity measurements were not reported and will be reported below. COMPARISON: 03/31/2022 and 09/12/2021 FINDINGS: DIRECT DUPLEX DOPPLER FINDINGS: RIGHT LEG: Common femoral artery: 180 cm/s, phasicity: Monophasic. Moderate noncalcified plaque Profunda femoris artery: 111 cm/s, phasicity: Monophasic Superficial femoral artery (proximal): 116 cm/s, phasicity: Monophasic Superficial femoral artery (mid): 124 cm/s, phasicity: Monophasic Superficial femoral artery (distal): 103 cm/s, phasicity: Monophasic Popliteal artery: 59.5 cm/s, phasicity: Monophasic Posterior tibial artery: 51.0 cm/s, phasicity: Monophasic Peroneal artery: 39.6 cm/s, phasicity: Monophasic LEFT LEG: Common femoral artery: 328 cm/s, phasicity: Triphasic. Moderate noncalcified plaque Profunda femoris artery: 183 cm/s, phasicity: Triphasic Superficial femoral artery (proximal): 168 cm/s, phasicity: Monophasic Superficial femoral artery (mid): 149 cm/s, phasicity: Monophasic Superficial femoral artery (distal): 194 cm/s, phasicity: Monophasic Popliteal artery: 126 cm/s, phasicity: Monophasic Posterior tibial artery: 63.5 cm/s, phasicity: Monophasic Peroneal artery: Not visualized ANKLE-BRACHIAL INDEX: Right: 0.44, previously 0.57? Left: 0.59, previously 0.65 ANKLE PRESSURES: Right: PT 64, DP 60 Left: PT?85, DP?68 ANKLE PVR WAVEFORMS: Right: Abnormal Left: Abnormal Abdominal aorta and iliac arteries: Abdominal aorta and bilateral iliac arteries are normal in caliber. Duplex Doppler demonstrates normal velocities and color-flow in the abdominal aorta. Elevated velocity seen in the right common iliac artery measuring 280 cm/s and external iliac artery measuring 354 cm/s consistent with moderate to severe stenosis. Velocities within the left iliac arteries measures 112 cm/s in the common iliac artery and 206 cm/s in the external iliac artery. US/US arterial duplex LE BI IMPRESSION: Right: Severely decreased ankle-brachial index. Moderate to severe stenosis seen in the right common iliac artery and right external iliac artery. Diffusely dampened arterial waveforms with otherwise patent flow in the right femoral, popliteal and below-knee runoff vessels. Left: Moderately decreased ankle brachial index. A moderate to severe stenosis in the left common femoral artery. Dampened arterial waveforms with otherwise patent flow within the left superficial femoral, popliteal and below-knee runoff vessels. No significant change
== END 2023-01-05 12:33 | disposition home or self-care (01) ==
LOC: HO.US 12:32
PROVIDERS: Visit Provider Surgery Vascular Surgery
DX: Z13.6 Encounter for screening for cardiovascular disorders (principal); I70.213 Atherosclerosis of native arteries of extremities with intermittent claudication, bilateral legs
CPT/HCPCS: 76706; 93923; 93925

== ENCOUNTER → 2023-01-20 13:11 | Outpatient (BNVA) | payer OTHER, SELFPAY | PROVIDERS: Visit Provider Surgery Vascular Surgery | DX: I73.9 Peripheral vascular disease, unspecified (principal); E11.610 Type 2 diabetes mellitus with diabetic neuropathic arthropathy; Z89.421 Acquired absence of other right toe(s) | CPT/HCPCS: 99212 ==

== ENCOUNTER 2023-01-28 06:10 | Day surgery (SDC) | payer OTHER, SELFPAY ==
[2023-01-28] VITALS (15 sets, daily range): BP systolic 96–131; BP diastolic 44–68; PULSE 10–110; RESP 16–18; TEMP 36.8–37.2; O2SAT 97–100; BMI 28.5
[2023-01-28 06:33] LABS: MANUAL DIFF FLAG NO
[2023-01-28 06:44] LABS: Basophils Absolute Auto 0.1 X10*3/uL (0.0-0.2); Basophils Percent Auto 0.6 % (0-2); Eosinophils Absolute Auto 0.3 X10*3/uL (0.0-0.4); Hematocrit 22.8 % (42.0-52.0); Imm Gran Abs Auto 0.17 X10*3/uL (0.00-0.03); Imm Gran Pct Auto 1.4 % (0.0-0.4); Lymphocytes Absolute Auto 2.3 X10*3/uL (1.2-4.9); Lymphocytes Percent Auto 18.1 % (20-40); Mean Corpuscular HGB Conc 35.1 g/dl (31.0-36.0); Mean Corpuscular Hemoglobin 32.3 pg (27.0-33.0); Mean Corpuscular Volume 91.9 fL (80.0-98.0); Mean Platelet Volume 11.2 fL (9.4-12.4); Monocytes Absolute Auto 0.9 X10*3/uL (0.1-1.2); Monocytes Percent Auto 7.4 % (2-11); Neutrophils Absolute Auto 8.8 x10*3/uL (2.0-8.3); Neutrophils Percent Auto 70.5 % (45-73); Platelet Count 203 X10*3/uL (160-400); Red Blood Count 2.48 X10*6/uL (4.60-5.80); Red Cell Distribution Width 11.8 % (11.0-16.0); White Blood Count 12.5 X10*3/uL (4.8-10.8)
[2023-01-28 06:47] LABS: Blood Urea Nitrogen 27 mg/dL (9-16); Estimated Glomerular Filt Rate 34
[2023-01-28 07:03] LABS: Glucose, Whole Blood 371 mg/dL (60-115)
[2023-01-28] MEDS: Albuterol Sulfate (0.083%) 2.5 MG/3 ML VIAL.NEB INHALE (07:22)
--- NOTE | 2023-01-28 07:39 | PC.NURSE ---
md was made aware earlier of poc and H&h
--- NOTE | 2023-01-28 09:15 | P.OP_ITS ---
Operative Note Operative Note Date of Service: 01/28/23 Narrative: Angiogram report from [facility] Preoperative diagnosis: Atherosclerosis of right lower extremity with nonhealing ulcer Postoperative diagnosis: Same Procedure: 1. Ultrasound-guided left common femoral access 2. Aortogram with right lower extremity runoff 3. Right external iliac plasty Surgeon:Luke Billings M.D., FACS, RPVI Employment Manager:None Anesthesia: Local with moderate conscious sedation. Total intraservice moderate sedation time was 37 minutes. I monitored the patient's level of consciousness and physiologic status continuously throughout the procedure. Specimens:none Drains:none Estimated blood loss: Less than 10 ml Contrast used: 50 cc Implant: Medtronic Impact DCB 7 x 40 Indications: 57-year-old diabetic gentleman with a history of Charcot foot presents with nonhealing ulcer. He had undergone noninvasive testing which was concerning for inflow disease. He now presents for endovascular intervention The patient has signed the informed consent after reviewing risks, co mplications, benefits, and alternatives previously discussed with the patient. The patient was given the opportunity to ask any additional questions or voice any concerns. All questions were answered to the patient's satisfaction. Procedure in detail: Patient was brought to the angiography suite prior to which a time-out was called for patient identification and site verification. Bilateral groins were prepped and draped in the standard surgical fashion. Under ultrasound guidance left common femoral was punctured with micro puncture needle and wire. Subsequently a precision 4 Kisw[place]ili sheath was then placed. Bentson wire was advanced to the level of the aorta. 4 Kisw[place]ili Flush catheter was brought up and parked at the level of the renal arteries. Aortogram was then undertaken. Catheter was brought down to the level of the iliac bifurcation. Iliacs were subsequently imaged. Catheter was then brought in up and over to the right side SFA. Runoff study was then undertaken. We brought a trail Blazer catheter all the way down into the popliteal to get better visualization of the below-knee vessels. Through this contrast was instilled and no below-knee intervention was indicated. We did multiple orthogonal views of the iliacs and we recognize there was a high-grade right external iliac stenosis. At this time we administered 3000 units of systemic heparin. After 5 minutes of circulation time up and over 7 Kisw[place]ili sheath was then placed. We then confirmed true lumen with contrast. Once this was all accomplished we saw a high-grade stenosis in the external iliac. This was 1st insufflated with a regular 7 x 40 balloon. We then performed a plasty with a 7 x 40 drug coated balloon. This was brought into position in under 3 minutes and insufflated for a total of 3 minutes in duration. Completion angiogram demonstrated a good result. Catheter wire sheath was brought back to the ipsilateral side. StarClose closure device was then deployed. Patient tolerated the procedure well. Interpretation of films: 1. Ultrasound demonstrates appropriate femoral puncture. Image of which was saved. 2. Aortogram demonstrates appropriate caliber aorta. Minimal disease. Appropriate take-off of the renals. 3. Iliac images demonstrate right external iliac high-grade stenosis and in general vasculature was of extremely small caliber 4. Right Leg Common femoral artery: No significant disease Profundus Femoris: No significant disease Superficial femoral artery: No significant disease Popliteal artery (p1,p2,p3): No significant disease Anterior tibial artery: Occludes proximal quarter and becomes all collateral no named vessel Peroneal artery: Good flow all the way down towards the ankle Posterior tibial artery: Dominant flow to the pedal arch Dorsalis pedis/plantar arch: Incomplete Conclusion: 1. Successful plasty of right external iliac 2. Anticoagulation status: Will require 6 months of aspirin and Plavix This note is constructed using voice recognition software. While every effort has been made to ensure accuracy, toxics program officer errors may have been included. Thank you for allowing me to participate in the care of your patient. Yours sincerely, Luke Billings MD, FACS, R.P.V.I.
[2023-01-28] MEDS: Aspirin 325 MG TABLET 650 MG PO (09:20)
[2023-01-28] MEDS: Clopidogrel Bisulfate 300 MG TABLET PO (09:20)
== END 2023-01-28 13:16 | disposition home or self-care (01) ==
PROVIDERS: Visit Provider Surgery Vascular Surgery
DX: E11.51 Type 2 diabetes mellitus with diabetic peripheral angiopathy without gangrene (principal); L97.519 Non-pressure chronic ulcer of other part of right foot with unspecified severity; I70.235 Atherosclerosis of native arteries of right leg with ulceration of other part of foot; E11.610 Type 2 diabetes mellitus with diabetic neuropathic arthropathy; M86.9 Osteomyelitis, unspecified; Z89.421 Acquired absence of other right toe(s); F32.A Depression, unspecified; B20 Human immunodeficiency virus [HIV] disease; Z79.4 Long term (current) use of insulin; I10 Essential (primary) hypertension; E78.5 Hyperlipidemia, unspecified; F11.21 Opioid dependence, in remission; F17.210 Nicotine dependence, cigarettes, uncomplicated
CPT/HCPCS: 36415; 37220; 75630; 76937; 82565; 82947; 84520; 85025; 94640; 99152; 99153; C1725; C1760; C1769; C1887; J1643; J2250; J3010; Q9967

== ENCOUNTER 2023-01-30 12:36 | Outpatient (RCR) | payer OTHER, SELFPAY ==
--- NOTE | ~2023-01-30 | XR_ITS ---
EXAMINATION: XR FOOT, LEFT CLINICAL INFORMATION: Nonhealing wound COMPARISON: None available. TECHNIQUE: AP, lateral, and oblique views of the left foot. FINDINGS: Soft tissue gas and gauze material overlies the 5th toe. No acute osseous abnormality is identified. Probable chronic ulcer of the posterior heel pad. No cortical erosion is evident. Large heel spur. XR/XR foot LT min 3V IMPRESSION: Soft tissue gas and gauze material overlies the 5th toe. No acute osseous abnormality is evident. No radiographic evidence of osteomyelitis. MRI would be a more sensitive modality.
== END 2023-02-11 09:00 | disposition home or self-care (01) ==
LOC: HO.WCC 12:36
PROVIDERS: Visit Provider Physician Assistant
DX: E11.621 Type 2 diabetes mellitus with foot ulcer (principal); E11.51 Type 2 diabetes mellitus with diabetic peripheral angiopathy without gangrene; L97.524 Non-pressure chronic ulcer of other part of left foot with necrosis of bone; E11.69 Type 2 diabetes mellitus with other specified complication; M86.072 Acute hematogenous osteomyelitis, left ankle and foot; E11.40 Type 2 diabetes mellitus with diabetic neuropathy, unspecified; Q66.02 Congenital talipes equinovarus, left foot; F17.210 Nicotine dependence, cigarettes, uncomplicated; I10 Essential (primary) hypertension; Z79.02 Long term (current) use of antithrombotics/antiplatelets; Z79.82 Long term (current) use of aspirin; Z86.19 Personal history of other infectious and parasitic diseases; Z79.4 Long term (current) use of insulin; Z79.84 Long term (current) use of oral hypoglycemic drugs; Z89.421 Acquired absence of other right toe(s)
CPT/HCPCS: 11042; 11044; 36415; 73630; 80053; 83036; 84134; 85025; 85652; 86140; 87070; 87073; 87076; 87077; 87185; 87186; 87205

== ENCOUNTER 2023-02-02 15:29 | Inpatient (IN) | payer OTHER, SELFPAY ==
[2023-02-02 15:44] VITALS: BP 129/64; PULSE 100; RESP 18; TEMP 36.6; O2SAT 100; BMI 28.2
--- NOTE | 2023-02-02 15:55 | ED.GENADULT ---
HPI - General Adult General Chief complaint: Wound/Laceration Stated complaint: abnormal labs Time Seen by Provider: 02/02/23 16:51 Source: patient, RN notes reviewed, old records reviewed and assistant art director Mode of arrival: ambulatory Limitations: language barrier History of Present Illness HPI narrative: 57-year-old male past medical history significant for diabetes, peripheral artery disease, history of osteomyelitis, chronic kidney disease, hypertension, hyperlipidemia, cirrhosis presents for evaluation of left foot pain and wound. Patient reports that he has had chronic wounds to his left foot. He has a previous calcaneal surgery related to osteomyelitis in the past Therefore yesterday where a specialized boot to his left leg and he believes that caused an ulcer to the ball of his foot. He reports that he had been going to Wound Care previously but stopped for a long time as he felt his wound was improving He went back to wound care today had x-rays and blood work and was told to go to the ER due to an infection He reports mild, 5/10 pain to the area that is worse with walking Denies any fevers or chills Related Data Home Medications Medication Instructions Recorded Confirmed aspirin 81 mg tablet,delayed 81 mg PO DAILY 08/08/20 02/02/23 release blood sugar diagnostic #10 ea 08/08/20 10/16/20 cholecalciferol (vitamin D3) 50 50 mcg PO DAILY 08/08/20 02/02/23 mcg (2,000 unit) tablet dulaglutide 1.5 mg/0.5 mL 1.5 mg subcut FR 08/08/20 02/02/23 subcutaneous pen injector furosemide 20 mg tablet 20 mg PO DAILY PRN swelling 08/08/20 02/02/23 hydrochlorothiazide 25 mg tablet 25 mg PO DAILY 08/08/20 02/02/23 insulin syringe-needle U-100 1 mL #10 ea 08/08/20 10/16/20 29 gauge x 1/2 metoprolol succinate 100 mg 100 mg PO DAILY 08/08/20 02/02/23 tablet,extended release 24 hr quetiapine 100 mg tablet 100 mg PO BEDTIME 08/08/20 02/02/23 lancets 33 gauge #100 ea 11/08/20 metformin 500 mg tablet,extended 1,000 mg PO BID 11/08/20 02/02/23 release 24 hr pen needle, diabetic 32 gauge x #50 ea 11/08/20 methadone 10 mg/mL oral concentrate 30 mg PO DAILY 11/12/20 03/13/21 emtricitabine 200 mg-rilpivirine 1 tab PO DAILY 12/05/20 02/02/23 25 mg-tenofovir alafenam 25 mg tablet (Odefsey) insulin aspart U-100 100 unit/mL 10 - 20 unit subcut TIDWM 12/05/20 02/02/23 (3 mL) subcutaneous pen (Novolog FlexPen U-100 Insulin aspart) insulin degludec 100 unit/mL (3 30 unit subcut BEDTIME 04/22/21 02/02/23 mL) subcutaneous pen (Tresiba FlexTouch U-100 insulin) amlodipine 5 mg tablet 5 mg PO DAILY 02/02/23 02/02/23 nicotine 10 mg inhalation 1 inh inhalation Q4H PRN CRAvings 02/02/23 02/02/23 cartridge (Nicotrol) nicotine 21 mg/24 hr daily 1 patch topical DAILY 02/02/23 02/02/23 transdermal patch rosuvastatin 20 mg tablet 20 mg PO BEDTIME 02/02/23 02/02/23 Previous Rx's Medication Instructions Recorded lisinopril 5 mg tablet 5 mg PO DAILY #30 tabs 03/20/21 clopidogrel 75 mg tablet (Plavix) 75 mg PO DAILY #90 tabs 01/28/23 Allergies Allergy/AdvReac Type Severity Reaction Status Date / Time trazodone [TRAZODONE] Allergy Unknown UNKNOWN Verified 01/20/23 13:17 Review of Systems Constitutional: Constitutional: Denies chills and Denies fever(s) Musculoskeletal: Musculoskeletal: Reports deformity Integumentary/Breasts: Skin/Breast: Reports erythema, Reports skin ulcer, Reports wounds and Reports jaundice PMFSH Past Medical History Medical History Cirrhosis COVID-19 vaccine administered Depression Diabetes GERD (gastroesophageal reflux disease) Hepatitis History of hyperbaric oxygen therapy HIV (human immunodeficiency virus infection) Hx of drug dependence Hyperlipidemia Hypertension Osteomyelitis Toe ulcer Surgical History H/O skin graft S/P angiogram of extremity Status post debridement Family History Family History Father Diabetes HTN (hypertension) Mother HTN (hypertension) Daughter No problems noted. Social History Social History (Updated 01/20/23 @ 13:19 by VINICIO Murcia) Household Members: Family Housing: House Are you a primary resident care coordinator to a significant other at home: No Do you presently have visiting nurse or other home services: Yes Alcohol intake: never Patient Tobacco Use Status: Current everyday Tobacco user Tobacco use type: Cigarette Cigarette Packs Per Day: 0 Cigarettes Per Day: 10 Years Smoked: 35 e-Cigarette/Vaping Use: Never Used Second Hand Smoke Exposure: No Substance Use Type: Former Substance User and Heroin Advance Directives: Yes Advance Directives on File: Yes Advance Directives Date on File: 03/13/21 service: No Current occupational status: disabled Physical Exam ED Vital Signs: Vital Signs - 24 hr 02/02/23 15:44 Temperature 97.8 F Pulse Rate 100 Respiratory Rate 18 Blood Pressure 129/64 Pulse Oximetry 100 Oxygen Delivery Method Room Air BMI result Body Mass Index 28.2 Const General: healthy appearing, comfortable, no acute distress, alert and awake Nutritional Appearance: well nourished Orientation/consciousness: patient oriented x3 HENMT Head: Yes normocephalic and Yes atraumatic Eyes Eyelids: Yes eyelids normal Conjunctivae: conjunctivae normal Sclerae: sclerae normal Corneas: corneas normal Pupils: Equal, round and reactive pupils present EOM: EOMs intact bilaterally Neck Neck: Yes full ROM Resp Effort & Inspection: normal respiratory effort, able to speak in complete sentences and not labored Skin Other: Patient has an approximately 8 cm in diameter diabetic ulcer that is unstageable due to black eschar. There is some surrounding erythema on the lateral aspect of the foot. There is some foul-smelling purulent drainage. General skin exam: elasticity normal Neuro General: patient oriented x3 Cranial nerves: Yes Equal, round and reactive pupils present and Yes Bilaterally intact EOM present Cognition (Neuro): normal cognition Extrem Other: Deformity to the left calcaneus from previous surgery Course Course Course Narrative: RME; 57 yold male with known ostemoytleitis presents to the ED for WBC of 18,000 and known oestoemyelitits as per wound clinic. labs and xray ordered Reevaluation(s) Reevaluation #1: Discussed with Dr. Goodman, admitting team who would like me to transfuse the patient as his hemoglobin is 7.3 any is a high likelihood of going to the OR. I discussed this with the patient using the court commissioner and the patient signed informed consent agreeing to blood transfusion Time: 18:55 Medications Administered Discontinued Medications Generic Name Dose Route Start Last Admin Trade Name Humble PRN Reason Stop Dose Admin Acetaminophen 650 mg 02/02/23 17:26 02/02/23 18:29 Acetaminophen 325 Mg Tablet PO 02/02/23 17:27 650 mg ONCE ONE Administration Piperacillin Sod/Tazobactam 50 mls @ 100 mls/hr 02/02/23 17:14 02/02/23 18:29 Sod 3.375 gm/ Sodium Chloride IV 02/02/23 17:43 100 mls/hr ONCE ONE Administration Sodium Chloride 1,000 mls @ 999 mls/hr 02/02/23 17:15 02/02/23 18:29 Ns IV 02/02/23 18:15 999 mls/hr .Q1H1M LIBRADO Administration Medical Decision Making Medical Decision Making [facility] Narrative: 57-year-old male presents for evaluation of a diabetic ulcer/wound to his left foot. The patient appears to [place] [address]. He has a chronic anemia due to liver cirrhosis and likely anemia of chronic disease. His lactic acid is 2.4. The patient's vital signs are within normal limits. The patient's heart rate is 100 however he does not meet any other criteria for SIRS. The for the patient is not septic. However we will treat with IV fluids, vancomycin and Zosyn. Will admit to the hospitalist for further evaluation management Differential Diagnosis Cellulitis Osteomyelitis Diabetic ulcer Gangrene Sepsis Admission/Observation Consideration of admission/observation: Escalation of care including admission/observation considered Consult Healthcare Provider Management of the patient was discussed with: Hospitalist Lab Data [facility] Lab Attestation statement: I reviewed the patient's lab results. Patient has a [place] [address]. He has a chronic anemia. The patient has chronic kidney disease, his creatinine is 2.09 which is consistent with his recent baseline, his BUN is 36. The patient's sodium is low at 128 but he does have a elevated glucose at 295. Elevated lactic acid to 2.4 02/02/23 16:05 02/02/23 16:05 Labs: Lab Results 02/02/23 02/02/23 02/02/23 Range/Units 16:04 16:05 16:05 WBC 20.2 H (4.8-10.8) X10*3/uL RBC 2.27 L (4.60-5.80) X10*6/uL Hgb 7.3 L (14.0-18.0) g/dl Hct 20.9 L* (42.0-52.0) % MCV 92.1 (80.0-98.0) fL MCH 32.2 (27.0-33.0) pg MCHC 34.9 (31.0-36.0) g/dl RDW 12.0 (11.0-16.0) % Plt Count 257 (160-400) X10*3/uL MPV 11.0 (9.4-12.4) fL Immature Gran % (Auto) 0.9 H (0.0-0.4) % Neut % (Auto) 82.9 H (45-73) % Lymph % (Auto) 9.6 L (20-40) % [place] % (Auto) 5.6 (2-11) % Eos % (Auto) 0.6 (0-4) % Baso % (Auto) 0.4 (0-2) % Lymph # (Auto) 1.9 (1.2-4.9) X10*3/uL [place] # (Auto) 1.1 (0.1-1.2) X10*3/uL Eos # (Auto) 0.1 (0.0-0.4) X10*3/uL Baso # (Auto) 0.1 (0.0-0.2) X10*3/uL Abs Immat Gran (auto) 0.18 H (0.00-0.03) X10*3/uL Absolute Neuts (auto) 16.7 H (2.0-8.3) x10*3/uL Absolute Nucleated RBC 0.000 (0.0-0.012) X10*3/uL Nucleated RBC % (auto) 0.0 (0.0-0.2) /100WBC Sodium 128 L (135-145) mmol/L Potassium 4.0 (3.3-5.1) mmol/L Chloride 97 (96-108) mmol/L Carbon Dioxide 20 L (22-29) mmol/L Anion Gap 15 (12-20) BUN 36 H (9-16) mg/dL Creatinine 2.09 H (0.5-1.4) mg/dL Estim Creat Clear Calc 39.8 Estimated GFR 33 Random Glucose 295 H (60-115) mg/dL Lactic Acid 2.4 H* (0.5-2.0) mmol/L Calcium 9.1 (8.4-10.2) mg/dL Total Bilirubin 0.5 (0.0-1.0) mg/dL AST 38 H (5-37) U/L ALT 30 (0-40) U/L Alkaline Phosphatase 139 H (39-117) U/L C-Reactive Protein 13.97 H (< or = 0.50) mg/dL Total Protein 8.3 H (6.5-8.0) g/dL Albumin 3.4 L (3.5-5.0) g/dL External Record Review External record reviewed: Prior outpatient labs and Prior outpatient radiology Chronic Conditions Patient?s care impacted by: Diabetes Discharge Plan Discharge Clinical Impression: Diabetic foot ulcer, Anemia of chronic disease Patient Disposition: Admitted As Inpatient Prescriptions: No Action lisinopril 5 mg Tablet 5 mg PO DAILY Qty: 30 0RF Protocol: Hold for SBP< HOLD for SBP < : 90 insulin degludec [Tresiba FlexTouch U-100] 100 unit/mL (3 mL) insulin pen 30 unit subcut BEDTIME methadone 10 mg/mL Concentrate 30 mg PO DAILY insulin aspart U-100 [Novolog FlexPen U-100 Insulin] 100 unit/mL (3 mL) insulin pen 10 - 20 unit subcut TIDWM Odefsey 200-25-25 mg tablet 1 tab PO DAILY clopidogrel [Plavix] 75 mg tablet 75 mg PO DAILY Qty: 90 1RF amlodipine 5 mg tablet 5 mg PO DAILY Nicotrol 10 mg cartridge 1 inh INHALATION Q4H PRN (Reason: CRAvings) nicotine 21 mg/24 hr patch 24 hour 1 patch topical DAILY rosuvastatin 20 mg tablet 20 mg PO BEDTIME hydrochlorothiazide 25 mg tablet 25 mg PO DAILY metoprolol succinate 100 mg tablet extended release 24 hr 100 mg PO DAILY quetiapine 100 mg tablet 100 mg PO BEDTIME (DME) blood sugar diagnostic Strip See Rx Instructions Not Applicable .MEDSUPPLY Qty: 10 Rx Instructions: As directed aspirin 81 mg tablet,delayed release (DR/EC) 81 mg PO DAILY furosemide 20 mg tablet 20 mg PO DAILY PRN (Reason: swelling) (DME) insulin syringe-needle U-100 1 mL 29 gauge x 1/2 syringe See Rx Instructions .ROUTE TID Qty: 10 Rx Instructions: As directed cholecalciferol (vitamin D3) 50 mcg (2,000 unit) tablet 50 mcg PO DAILY dulaglutide 1.5 mg/0.5 mL pen injector 1.5 mg subcut FR (DME) lancets 33 gauge misc See Rx Instructions Not Applicable .MEDSUPPLY Qty: 100 Rx Instructions: As directed (DME) pen needle, diabetic 32 gauge x / needle See Rx Instructions .ROUTE .MEDSUPPLY Qty: 50 Rx Instructions: As directed metformin 500 mg tablet extended release 24 hr 1,000 mg PO BID
--- NOTE | 2023-02-02 18:33 | PHA.MEDREC ---
Pharmacy Consult ? Medication Reconciliation Pharmacy has completed the medication reconciliation. Spoke to patient using stock preparer. Patient states that the tresiba dose is between 30-40 units, and his sliding scale changes between 10-20. Patient gets 30 mg of methadone from a clinic in [place]. He said the clinic is closed tomorrow so he did get 1x take home bottle. patient states he is done with the doxy. Everything else is updated per pt aaron
--- NOTE | 2023-02-02 19:23 | PM.IMHP ---
History of Present Illness Date of Service: 02/02/23 Attending physician on admission: Milton Goodman Chief Complaint: DM FOOT WOUND 57-year-old male past medical history significant for diabetes, peripheral artery disease, history of osteomyelitis, chronic kidney disease, hypertension, hyperlipidemia, cirrhosis presents for evaluation of left foot pain and wound. Patient says that he had a blister on the foot 3 weeks ago for which he went to his PCP and was given p.o. antibiotics- Ceftin and another antibiotic not know the name. And he he kept walking on the same foot and subsequently his foot was getting more erythematous and has some pain-for which he went to his PCP again and was lab work was done-foot x-ray and labs: Patient found to have COLT and also evidence of infection please see x-ray section. Subsequently was sent to the hospital for further evaluation. In ED: Lab imaging reviewed Found to have WBC count of 20, hemoglobin of 7.3/hematocrit 20.9 Foot x-ray shows soft tissue infection with some air. Discussed with the ED physician in detail foot x-ray finding is likely due to open foot phone area, otherwise patient is not in distress, no fever. Sodium : Corrected is 131 BUN 36 and creatinine of 2.1 ESR pending, CRP is 13. 79 Lactic acid 2.4, patient had tachycardia Patient received IV vanco and Zosyn in the ED, and admission was given for cellulitis. Review of Systems Review of Systems: As above. [facility] Medical History Cirrhosis COVID-19 vaccine administered Depression Diabetes GERD (gastroesophageal reflux disease) Hepatitis History of hyperbaric oxygen therapy HIV (human immunodeficiency virus infection) Hx of drug dependence Hyperlipidemia Hypertension Osteomyelitis Toe ulcer Family History Father Diabetes HTN (hypertension) Mother HTN (hypertension) Daughter No problems noted. Surgical History H/O skin graft S/P angiogram of extremity Status post debridement Social History Household Members: Family Housing: House Are you a primary hearing healthcare practitioner to a significant other at home: No Do you presently have visiting nurse or other home services: Yes Alcohol intake: never Patient Tobacco Use Status: Current everyday Tobacco user Tobacco use type: Cigarette Cigarette Packs Per Day: 0 Cigarettes Per Day: 10 Years Smoked: 35 e-Cigarette/Vaping Use: Never Used Second Hand Smoke Exposure: No Substance Use Type: Former Substance User and Heroin Advance Directives: Yes Advance Directives on File: Yes Advance Directives Date on File: 03/13/21 service: No Current occupational status: disabled Meds Allergies Allergy/AdvReac Type Severity Reaction Status Date / Time trazodone [TRAZODONE] Allergy Unknown UNKNOWN Verified 01/20/23 13:17 Active Medications: Current Medications Amlodipine Besylate (Amlodipine Besylate 5 Mg Tablet) 5 mg PO DAILY FOR[facility]LY [facility], [facility]–1983; Protocol Aspirin (Aspirin Enteric Coated 81 Mg Tablet.Dr) 81 mg PO DAILY [facility], [facility]1983 Clopidogrel Bisulfate (Clopidogrel Bisulfate 75 Mg Tablet) 75 mg PO DAILY [facility], [facility]1983 Dextrose (Dextrose 50 % 25 Gm/50 Ml Syringe) 25 gm IVPUSH Q15M PRN; Protocol PRN Reason: per Hypoglycemia Standing Ord. Glucose (Glucose Gel 15 Gm Gel..Gram.) 15 gm PO Q15M PRN; Protocol PRN Reason: per Hypoglycemia Standing Ord. Albumin Human (Kedbumin 25 %) 100 mls @ 100 mls/hr IV Q6H [facility], [facility]–1983 Stop: 02/03/23 14:29 Sodium Chloride (Ns) 1,000 mls @ 80 mls/hr IVCONT .[id number] [facility], 1928–1983 Piperacillin Sod/Tazobactam (Sod 3.375 gm/ Sodium Chloride) 50 mls @ 100 mls/hr IV Q6H [facility], [facility]–1983 Insulin Human Lispro (Insulin Lispro 100 Unit/Ml 3 Ml Vial) 0 unit SUBCUT QIDACHS FOR[facility]LY [facility], 1928–1983; Protocol Metoprolol Succinate (Metoprolol Succinate Er 100 Mg Tab.Er.24h) 100 mg PO DAILY [facility], [facility]1983; Protocol Nicotine (Nicotine 21 Mg Patch.Td24) mg TRANSDERMA DAILY [facility], 1928–1983 Non-Formulary Medication (Hgzmpsusuj-Wzxatavl-Nqabdd Ala [Odefsey]) 1 tab PO DAILY FOR[facility]LY [facility], [facility]1983 Non-Formulary Medication (Nicotine [Nicotrol]) 1 inhalation INHALE Q4H PRN PRN Reason: CRAvings Pharmacy Consult (Consult Rx Perform Med Rec) 1 each MISCELLANE ONCE PRN PRN Reason: Consult order Pharmacy Consult (Consult Rx Vancomycin Dosing) 1 each MISCELLANE DAILY PRN PRN Reason: Consult order Quetiapine Fumarate (Quetiapine Fumarate 100 Mg Tablet) 100 mg PO BEDTIME [facility], [facility]1983 Sodium Chloride (0.9 % Sodium Chloride Flush 3 Ml Syringe) 3 ml IVFLUSH QSHIFT [facility]–1983 Vitamin D (Cholecalciferol (Vitamin D3) 25 Mcg Tablet) 50 mcg PO DAILY FOR[facility], [facility]1983 Home Medications Medication Instructions Recorded Confirmed Last Taken Type aspirin 81 mg tablet,delayed 81 mg PO DAILY 08/08/20 02/02/23 02/02/23 History release blood sugar diagnostic #10 ea 08/08/20 10/16/20 Unknown History cholecalciferol (vitamin D3) 50 50 mcg PO DAILY 08/08/20 02/02/23 02/02/23 History mcg (2,000 unit) tablet dulaglutide 1.5 mg/0.5 mL 1.5 mg subcut FR 08/08/20 02/02/23 04/18/21 History subcutaneous pen injector furosemide 20 mg tablet 20 mg PO DAILY PRN swelling 08/08/20 02/02/23 Unknown History hydrochlorothiazide 25 mg tablet 25 mg PO DAILY 08/08/20 02/02/23 02/02/23 History insulin syringe-needle U-100 1 mL #10 ea 08/08/20 10/16/20 Unknown History 29 gauge x 1/2 metoprolol succinate 100 mg 100 mg PO DAILY 08/08/20 02/02/23 02/02/23 History tablet,extended release 24 hr quetiapine 100 mg tablet 100 mg PO BEDTIME 08/08/20 02/02/23 02/01/23 History lancets 33 gauge #100 ea 11/08/20 Unknown History metformin 500 mg tablet,extended 1,000 mg PO BID 11/08/20 02/02/23 02/02/23 History release 24 hr pen needle, diabetic 32 gauge x #50 ea 11/08/20 Unknown History methadone 10 mg/mL oral concentrate 30 mg PO DAILY 11/12/20 03/13/21 04/22/21 10:30 History emtricitabine 200 mg-rilpivirine 1 tab PO DAILY 12/05/20 02/02/23 02/02/23 History 25 mg-tenofovir alafenam 25 mg tablet (Bryan) insulin aspart U-100 100 unit/mL 10 - 20 unit subcut TIDWM 12/05/20 02/02/23 02/02/23 History (3 mL) subcutaneous pen (Novolog FlexPen U-100 Insulin aspart) insulin degludec 100 unit/mL (3 30 unit subcut BEDTIME 04/22/21 02/02/23 02/01/23 History mL) subcutaneous pen (Tresiba FlexTouch U-100 insulin) amlodipine 5 mg tablet 5 mg PO DAILY 02/02/23 02/02/23 02/02/23 History nicotine 10 mg inhalation 1 inh inhalation Q4H PRN CRAvings 02/02/23 02/02/23 Unknown History cartridge (Nicotrol) nicotine 21 mg/24 hr daily 1 patch topical DAILY 02/02/23 02/02/23 Unknown History transdermal patch rosuvastatin 20 mg tablet 20 mg PO BEDTIME 02/02/23 02/02/23 02/01/23 History Physical Exam Vital Signs and Narrative: Vital Signs: Last Vital Signs Temp 97.8 F 02/02/23 15:44 Pulse 100 02/02/23 15:44 Resp 18 02/02/23 15:44 BP 129/64 02/02/23 15:44 Pulse Ox 100 02/02/23 15:44 O2 Del Method Room Air 02/02/23 15:44 BMI result Body Mass Index 28.2 Appearance: Alert.? Oriented X3.? not in distress.? Eyes: Pupils equal, round and reactive to light.? Sclera nonicteric.? ENT: Pharynx normal.? Moist mucous membranes. cvs: rrr, [id number] . res: clear to auscultation ,no rhonchii or wheezing abd: no rebound or guarding ,nt, bs present. ext pulses present , no cyanosis. left foot -mild erythema, mostly dry at the plantar base ulcer none, no significant discharge, 5th told seems to me bluish. Please see picture from ED attending says note for further detail. neuro: axo3 , nonfocal. Results Labs 02/02/23 16:05 02/02/23 16:05 Labs: Laboratory Results - last 24 hr 02/02/23 02/02/23 02/02/23 16:04 16:05 16:05 MCV 92.1 MCH 32.2 MCHC 34.9 RDW 12.0 Plt Count 257 MPV 11.0 Immature Gran % (Auto) 0.9 H Neut % (Auto) 82.9 H Lymph % (Auto) 9.6 L [place] % (Auto) 5.6 Eos % (Auto) 0.6 Baso % (Auto) 0.4 Lymph # (Auto) 1.9 [place] # (Auto) 1.1 Eos # (Auto) 0.1 Baso # (Auto) 0.1 Abs Immat Gran (auto) 0.18 H Absolute Neuts (auto) 16.7 H Absolute Nucleated RBC 0.000 Nucleated RBC % (auto) 0.0 Anion Gap 15 Estim Creat Clear Calc 39.8 Estimated GFR 33 Random Glucose 295 H Lactic Acid 2.4 H* Lactic Acid F/U @ 2Hr Calcium 9.1 Total Bilirubin 0.5 AST 38 H ALT 30 Alkaline Phosphatase 139 H C-Reactive Protein 13.97 H Total Protein 8.3 H Albumin 3.4 L Crossmatch 02/02/23 02/02/23 18:34 18:59 MCV MCH MCHC RDW Plt Count MPV Immature Gran % (Auto) Neut % (Auto) Lymph % (Auto) [place] % (Auto) Eos % (Auto) Baso % (Auto) Lymph # (Auto) [place] # (Auto) Eos # (Auto) Baso # (Auto) Abs Immat Gran (auto) Absolute Neuts (auto) Absolute Nucleated RBC Nucleated RBC % (auto) Anion Gap Estim Creat Clear Calc Estimated GFR Random Glucose Lactic Acid Lactic Acid F/U @ 2Hr 2.3 H* Calcium Total Bilirubin AST ALT Alkaline Phosphatase C-Reactive Protein Total Protein Albumin Crossmatch See Detail Imaging Radiologist's Impressions: Impressions Foot X-Ray 02/02/23 16:25 IMPRESSION: Gas in the soft tissue most likely due to soft tissue infection. No obvious osteomyelitis. Correlate clinically. Assessment and Plan (1) Sepsis: Status: Acute (2) PAD (peripheral artery disease): Status: Acute (3) Cellulitis: Status: Acute (4) Acute kidney injury: Status: Acute Plan 57-year-old male with history of diabetes, osteomyelitis who presents with a nonhealing left foot wound/5th toe . Sepsis secondary to nonhealing wound,/diabetic foot ulcer-suspected osteomyelitis ? ESR pending and CRP elevated,blood culure pending Patient has lactic acidosis, tachycardia, elevated leukocytosis X-ray findings: Please see above. Trend lactic acid Continue broad-spectrum antibiotics-Vanco and Zosyn day 1 . vascular evaluation and id evaluation ? 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 PAD Continue home medications. COLT: Ordered hydration IV with normal saline Hold lisinopril, diuretics, nephrotoxic medications Added UA-to more information for COLT. diabetes diabetic diet Fingersticks with low-dose sliding scale insulin HIV:?continue home medication hypertension will hold hydrochlorothiazide in the setting of COLT hold furosemide Chronic anemia: Worsening Monitor H&H ED had already ordered type and cross and PRBC. Monitor CBC. Hyponatremia: Mild hyponatremia possibly related to decreased p.o. intake Continue hydration, monitor BMP. DVT prophylaxis : Chemoprophylaxis on hold because of anemia. In patient need: Patient has sepsis secondary to nonhealing diabetic foot wound-cellulitis: Need IV antibiotic broad-spectrum, need Vanco trough and electrolyte monitoring, also need surgical evaluation for possible surgical intervention if does not improve. Above was discussed with patient and his sister in detail length both understand and in agreement with above plan, time spent 70 minute, sisters phone number [phone]. Patient is full code. Time Spent With Patient Time: Total time managing care of this patient today ____ minutes. Quality Stroke Does the patient have a stroke diagnosis?: No VTE Prior VTE?: No VTE Risk Level:: Medical - moderate - high VTE Device Contraindication: N/A - Device Ordered VTE Drug Contraindication: N/A - Med Ordered
[2023-02-02 19:47] VITALS: BP 94/52; PULSE 79; RESP 18; TEMP 37.3; O2SAT 98
[2023-02-02 20:26] VITALS: BP 110/55; PULSE 79; RESP 17; TEMP 36.2; O2SAT 99
[2023-02-02] MEDS: Insulin Lispro 100 UNIT/ML 3 ML VIAL SUBCUT (20:44)
--- NOTE | 2023-02-02 22:13 | PHA.PROG ---
Admission Date/Time: February 02, 2023 19:03 Indication: SKIN Weight in k.647 kg Serum Creatinine - Last 168 Hours 02/02/23 16:05 Creatinine 2.09 H Estimated CrCl and GFR - Last 168 Hours 02/02/23 16:05 Estim Creat Clear Calc 39.8 Estimated GFR 33 Vancomycin Loading Dose: 1500 Current Vancomycin Dosing Regimen: 1000 Vancomycin Monitoring using AUC goal of 400 - 600 range with trough as surrogate marker: 480 Date and Time for next Vancomycin Level to be drawn: 02/04 @ 1700 Pharmacist Comments on Vancomycin Plan: Vancomycin dosing will take advantage of [employer] as a clinical decision support tool that uses Bayesian modeling to calculate individual patient's pharmacokinetic parameters and forecast the patient's drug concentration time course with the target goal AUC 24 range of 400 - 600 mg/L/hr.
[2023-02-02 22:55] VITALS: BP 113/59; PULSE 81; RESP 17; TEMP 37.3
[2023-02-02 23:11] VITALS: BP 119/61; PULSE 81; RESP 16; TEMP 36.9; O2SAT 100
[2023-02-03] VITALS (8 sets, daily range): BP systolic 109–132; BP diastolic 57–63; PULSE 79–91; RESP 16–20; TEMP 36.1–37; O2SAT 99–100; BMI 29.2
--- NOTE | 2023-02-03 04:39 | PC.NURSE ---
Pr arrived to unit at approx 2014 from ED via stretcher. A&Ox4, tajik speaking but able to make needs known. No c/o pain or discomfort. No s/s respiratory distress. Call watson and orientation of room reviewed. NSR on cardiac cath technologist. Pt recieved 1 unit RBCs this shift w/o difficulty. Albumin as ordered. NS at 80ml/hr as ordered infusing. IV antibiotics given as ordered. Left foot diabetic ulcer necrotic throughout, eschar present. Foul odor noted. Pt requesting wound to be covered. Place a moistened gauze over affected area and wrapped with kerlix. NPO after midnight. Urine sample obtained and sent to the lab. Pt voiding large amounts of CYU in urinal. Call watson within reach, bed in lowest locked position.
--- NOTE | 2023-02-03 08:00 | PC.NURSE ---
Surgery- Dr. Wahl at bedside for debriedment of foot wound this AM.
[2023-02-03] MEDS: Clopidogrel Bisulfate 75 MG TABLET PO (08:27)
[2023-02-03] MEDS: amLODIPine Besylate 5 MG TABLET PO (08:27)
[2023-02-03] MEDS: Aspirin Enteric Coated 81 MG TABLET.DR PO (08:27)
[2023-02-03] MEDS: Cholecalciferol (Vitamin D3) 25 MCG TABLET 50 MCG PO (08:27)
[2023-02-03] MEDS: Nicotine 21 MG PATCH.TD24 TRANSDERMA (08:27)
[2023-02-03] MEDS: Metoprolol Succinate ER 100 MG TAB.ER.24H PO (08:27)
[2023-02-03] MEDS: Insulin Lispro 100 UNIT/ML 3 ML VIAL SUBCUT ×4 (08:28→20:46)
--- NOTE | 2023-02-03 09:02 | PM.CNGS ---
History of Present Illness Consult details Consult date: 02/03/23 Narrative: 57M with hx of DM, PVD, cirrhosis, HIV, foot ulcers, admitted last night for COLT. He was being followed by his PCP for multiple medical problems. Outpatient labs yesterday showed COLT, so he was sent to the ED. According to his sister, he has had discoloration of the 5th toe on the left, involving the lateral aspect of the left foot mostly on the plantar aspect. This had been ongoing for about 3 weeks, but apparently has been worsening. The pt has poor sensation of his extremities so he denies any pain. The sister also says that the left foot has had foul odor for a few days now. She says the patient does not have any fever or chills. The patient has know PVD, with iliac diseas on the right. He had plasty of the right iliac with Dr. Billings last week. He has amputation oft the 5th toe on the right, and debridement of a heel ulce on the left with skin grafts. Review of Systems Constitutional: Constitutional: Denies chills and Denies fever(s) Cardiovascular: Cardiovascular: Denies chest pain Respiratory: Respiratory: Denies cough Gastrointestinal: Gastrointestinal: Denies abdominal pain Genitourinary: Genitourinary: Denies dysuria Musculoskeletal: Musculoskeletal: Reports muscle weakness and Reports numbness Neurologic: Reports numbness and Reports Sensory deficit (Neuro) (on both lower extremities) [facility] Past Medical History Medical History Cirrhosis COVID-19 vaccine administered Depression Diabetes Gangrene of left foot GERD (gastroesophageal reflux disease) Hepatitis History of hyperbaric oxygen therapy HIV (human immunodeficiency virus infection) Hx of drug dependence Hyperlipidemia Hypertension Osteomyelitis Toe ulcer Family History Family History Father Diabetes HTN (hypertension) Mother HTN (hypertension) Daughter No problems noted. Surgical History Surgical History H/O skin graft S/P angiogram of extremity Status post debridement Social History Social History Household Members: Family Housing: House Are you a primary emergency care tech to a significant other at home: No Do you presently have visiting nurse or other home services: Yes Alcohol intake: never Patient Tobacco Use Status: Current everyday Tobacco user Tobacco use type: Cigarette Cigarette Packs Per Day: 0 Cigarettes Per Day: 10 Years Smoked: 35 e-Cigarette/Vaping Use: Never Used Second Hand Smoke Exposure: No Substance Use Type: Former Substance User and Heroin Advance Directives Date on File: 03/13/21 service: No Current occupational status: disabled Meds Allergies Allergy/AdvReac Type Severity Reaction Status Date / Time trazodone [TRAZODONE] Allergy Unknown UNKNOWN Verified 01/20/23 13:17 Active Medications: Current Medications Amlodipine Besylate (Amlodipine Besylate 5 Mg Tablet) 5 mg PO DAILY [facility]; Protocol Last Admin: 02/03/23 08:27 Dose: 5 mg Aspirin (Aspirin Enteric Coated 81 Mg Tablet.Dr) 81 mg PO DAILY [facility] Last Admin: 02/03/23 08:27 Dose: 81 mg Clopidogrel Bisulfate (Clopidogrel Bisulfate 75 Mg Tablet) 75 mg PO DAILY [facility] Last Admin: 02/03/23 08:27 Dose: 75 mg Dextrose (Dextrose 50 % 25 Gm/50 Ml Syringe) 25 gm IVPUSH Q15M PRN; Protocol PRN Reason: per Hypoglycemia Standing Ord. Glucose (Glucose Gel 15 Gm Gel..Gram.) 15 gm PO Q15M PRN; Protocol PRN Reason: per Hypoglycemia Standing Ord. Albumin Human (Kedbumin 25 %) 100 mls @ 100 mls/hr IV Q6H [facility] Stop: 02/03/23 14:29 Last Admin: 02/03/23 08:20 Dose: 100 mls/hr Sodium Chloride (Ns) 1,000 mls @ 80 mls/hr IVCONT .[id number] [facility] Last Admin: 02/02/23 20:39 Dose: 80 mls/hr Piperacillin Sod/Tazobactam (Sod 2.25 gm/ Sodium Chloride) 50 mls @ 100 mls/hr IV Q6H [facility] Last Infusion: 02/03/23 06:22 Dose: Infused Vancomycin HCl 1,000 mg/ (Sodium Chloride) 270 mls @ 270 mls/hr IV Q24H [facility] Insulin Human Lispro (Insulin Lispro 100 Unit/Ml 3 Ml Vial) 0 unit SUBCUT QIDACHS [facility]; Protocol Last Admin: 02/03/23 08:28 Dose: 6 unit Methadone HCl (Methadone Hcl 20 Mg/2 Ml Oral.Conc) 30 mg PO DAILY [facility] Metoprolol Succinate (Metoprolol Succinate Er 100 Mg Tab.Er.24h) 100 mg PO DAILY [facility]; Protocol Last Admin: 02/03/23 08:27 Dose: 100 mg Nicotine (Nicotine 21 Mg Patch.Td24) 21 mg TRANSDERMA DAILY [facility] Last Admin: 02/03/23 08:27 Dose: 21 mg Non-Formulary Medication (Nbmzvggpad-Btwgywve-Rifjuu Ala [Odefsey]) 1 tab PO DAILY [facility] Pharmacy Consult (Consult Rx Perform Med Rec) 1 each MISCELLANE ONCE PRN PRN Reason: Consult order Pharmacy Consult (Consult Rx Vancomycin Dosing) 1 each MISCELLANE DAILY PRN PRN Reason: Consult order Quetiapine Fumarate (Quetiapine Fumarate 100 Mg Tablet) 100 mg PO BEDTIME [facility] Last Admin: 02/02/23 20:44 Dose: 100 mg Sodium Chloride (0.9 % Sodium Chloride Flush 3 Ml Syringe) 3 ml IVFLUSH QSHIFT [facility] Last Admin: 02/03/23 08:28 Dose: 3 ml Vitamin D (Cholecalciferol (Vitamin D3) 25 Mcg Tablet) 50 mcg PO DAILY [facility] Last Admin: 02/03/23 08:27 Dose: 50 mcg Home Medications Medication Instructions Recorded Confirmed Last Taken Type aspirin 81 mg tablet,delayed 81 mg PO DAILY 08/08/20 02/02/23 02/02/23 History release blood sugar diagnostic #10 ea 08/08/20 10/16/20 Unknown History cholecalciferol (vitamin D3) 50 50 mcg PO DAILY 08/08/20 02/02/23 02/02/23 History mcg (2,000 unit) tablet dulaglutide 1.5 mg/0.5 mL 1.5 mg subcut FR 08/08/20 02/02/23 04/18/21 History subcutaneous pen injector furosemide 20 mg tablet 20 mg PO DAILY PRN swelling 08/08/20 02/02/23 Unknown History hydrochlorothiazide 25 mg tablet 25 mg PO DAILY 08/08/20 02/02/23 02/02/23 History insulin syringe-needle U-100 1 mL #10 ea 08/08/20 10/16/20 Unknown History 29 gauge x 1/2 metoprolol succinate 100 mg 100 mg PO DAILY 08/08/20 02/02/23 02/02/23 History tablet,extended release 24 hr quetiapine 100 mg tablet 100 mg PO DAILY@1800 08/08/20 02/08/23 02/01/23 History lancets 33 gauge #100 ea 11/08/20 Unknown History metformin 500 mg tablet,extended 1,000 mg PO BID 11/08/20 02/02/23 02/02/23 History release 24 hr pen needle, diabetic 32 gauge x #50 ea 11/08/20 Unknown History methadone 10 mg/mL oral concentrate 30 mg PO DAILY 11/12/20 03/13/21 04/22/21 10:30 History emtricitabine 200 mg-rilpivirine 1 tab PO DAILY 12/05/20 02/02/23 02/02/23 History 25 mg-tenofovir alafenam 25 mg tablet (Sydneyefsey) insulin aspart U-100 100 unit/mL 10 - 20 unit subcut TIDWM 12/05/20 02/02/23 02/02/23 History (3 mL) subcutaneous pen (Novolog FlexPen U-100 Insulin aspart) insulin degludec 100 unit/mL (3 30 unit subcut BEDTIME 04/22/21 02/02/23 02/01/23 History mL) subcutaneous pen (Tresiba FlexTouch U-100 insulin) amlodipine 5 mg tablet 5 mg PO DAILY 02/02/23 02/02/23 02/02/23 History nicotine 10 mg inhalation 1 inh inhalation Q4H PRN CRAvings 02/02/23 02/02/23 Unknown History cartridge (Nicotrol) nicotine 21 mg/24 hr daily 1 patch topical DAILY 02/02/23 02/02/23 Unknown History transdermal patch rosuvastatin 20 mg tablet 20 mg PO BEDTIME 02/02/23 02/02/23 02/01/23 History Physical Exam Vital Signs: Vital Signs: Last Vital Signs Temp 98.1 F 02/03/23 07:40 Pulse 82 02/03/23 07:40 Resp 20 02/03/23 07:40 BP 119/57 L 02/03/23 07:40 Pulse Ox 100 02/03/23 07:40 O2 Del Method Room Air 02/03/23 07:40 BMI result Body Mass Index 29.2 Const: General: comfortable and no acute distress Resp: Effort & Inspection: normal respiratory effort Cardio: Rate: regular rate GI: Palpation (GI): Soft to palpation, not firm, nontender and no guarding Neuro: Sensory Exam: Sensory deficit (Neuro) (on both lower extremities) Extrem: Other: left foot - dark discoloration, 5th toe and plantar aspect of later foot, with foul odor c/w gangrene, no surrounding cellulitis; area of discoloration on plantar aspect 5x7 cm, appearing to be thick eschar 5th toe amputation on right Results Labs 02/03/23 05:45 02/03/23 05:45 Labs: Abnormal lab results 02/02/23 02/02/23 02/02/23 Range/Units 16:04 16:05 16:05 WBC 20.2 H (4.8-10.8) X10*3/uL RBC 2.27 L (4.60-5.80) X10*6/uL Hgb 7.3 L (14.0-18.0) g/dl Hct 20.9 L* (42.0-52.0) % Immature Gran % (Auto) 0.9 H (0.0-0.4) % Neut % (Auto) 82.9 H (45-73) % Lymph % (Auto) 9.6 L (20-40) % Abs Immat Gran (auto) 0.18 H (0.00-0.03) X10*3/uL Absolute Neuts (auto) 16.7 H (2.0-8.3) x10*3/uL ESR > 140 H (0-15) MM/HR Sodium (135-145) mmol/L Carbon Dioxide (22-29) mmol/L BUN (9-16) mg/dL Creatinine (0.5-1.4) mg/dL POC Glucose (60-115) mg/dL Random Glucose (60-115) mg/dL Lactic Acid 2.4 H* (0.5-2.0) mmol/L Lactic Acid F/U @ 2Hr (0.5-2.0) mmol/L AST (5-37) U/L Alkaline Phosphatase (39-117) U/L C-Reactive Protein (< or = 0.50) mg/dL Total Protein (6.5-8.0) g/dL Albumin (3.5-5.0) g/dL Urine Protein (Neg-Trace) mg/dL Urine Blood (Negative) Crossmatch 02/02/23 02/02/23 02/02/23 Range/Units 16:05 18:34 18:59 WBC (4.8-10.8) X10*3/uL RBC (4.60-5.80) X10*6/uL Hgb (14.0-18.0) g/dl Hct (42.0-52.0) % Immature Gran % (Auto) (0.0-0.4) % Neut % (Auto) (45-73) % Lymph % (Auto) (20-40) % Abs Immat Gran (auto) (0.00-0.03) X10*3/uL Absolute Neuts (auto) (2.0-8.3) x10*3/uL ESR (0-15) MM/HR Sodium 128 L (135-145) mmol/L Carbon Dioxide 20 L (22-29) mmol/L BUN 36 H (9-16) mg/dL Creatinine 2.09 H (0.5-1.4) mg/dL POC Glucose (60-115) mg/dL Random Glucose 295 H (60-115) mg/dL Lactic Acid (0.5-2.0) mmol/L Lactic Acid F/U @ 2Hr 2.3 H* (0.5-2.0) mmol/L AST 38 H (5-37) U/L Alkaline Phosphatase 139 H (39-117) U/L C-Reactive Protein 13.97 H (< or = 0.50) mg/dL Total Protein 8.3 H (6.5-8.0) g/dL Albumin 3.4 L (3.5-5.0) g/dL Urine Protein (Neg-Trace) mg/dL Urine Blood (Negative) Crossmatch See Detail 02/02/23 02/03/23 02/03/23 Range/Units 20:25 01:42 05:45 WBC 14.2 H (4.8-10.8) X10*3/uL RBC 2.30 L (4.60-5.80) X10*6/uL Hgb 7.2 L (14.0-18.0) g/dl Hct 21.2 L (42.0-52.0) % Immature Gran % (Auto) (0.0-0.4) % Neut % (Auto) (45-73) % Lymph % (Auto) (20-40) % Abs Immat Gran (auto) (0.00-0.03) X10*3/uL Absolute Neuts (auto) (2.0-8.3) x10*3/uL ESR (0-15) MM/HR Sodium (135-145) mmol/L Carbon Dioxide (22-29) mmol/L BUN (9-16) mg/dL Creatinine (0.5-1.4) mg/dL POC Glucose 224 H (60-115) mg/dL Random Glucose (60-115) mg/dL Lactic Acid (0.5-2.0) mmol/L Lactic Acid F/U @ 2Hr (0.5-2.0) mmol/L AST (5-37) U/L Alkaline Phosphatase (39-117) U/L C-Reactive Protein (< or = 0.50) mg/dL Total Protein (6.5-8.0) g/dL Albumin (3.5-5.0) g/dL Urine Protein 100 (2+) H (Neg-Trace) mg/dL Urine Blood Trace H (Negative) Crossmatch 02/03/23 02/03/23 Range/Units 05:45 07:44 WBC (4.8-10.8) X10*3/uL RBC (4.60-5.80) X10*6/uL Hgb (14.0-18.0) g/dl Hct (42.0-52.0) % Immature Gran % (Auto) (0.0-0.4) % Neut % (Auto) (45-73) % Lymph % (Auto) (20-40) % Abs Immat Gran (auto) (0.00-0.03) X10*3/uL Absolute Neuts (auto) (2.0-8.3) x10*3/uL ESR (0-15) MM/HR Sodium (135-145) mmol/L Carbon Dioxide 18 L (22-29) mmol/L BUN 33 H (9-16) mg/dL Creatinine 1.91 H (0.5-1.4) mg/dL POC Glucose 298 H (60-115) mg/dL Random Glucose 302 H (60-115) mg/dL Lactic Acid (0.5-2.0) mmol/L Lactic Acid F/U @ 2Hr (0.5-2.0) mmol/L AST (5-37) U/L Alkaline Phosphatase (39-117) U/L C-Reactive Protein (< or = 0.50) mg/dL Total Protein (6.5-8.0) g/dL Albumin (3.5-5.0) g/dL Urine Protein (Neg-Trace) mg/dL Urine Blood (Negative) Crossmatch Short CBC 02/02/23 02/03/23 Range/Units 16:05 05:45 WBC 20.2 H 14.2 H (4.8-10.8) X10*3/uL Hgb 7.3 L 7.2 L (14.0-18.0) g/dl Hct 20.9 L* 21.2 L (42.0-52.0) % Plt Count 257 198 (160-400) X10*3/uL BMP 02/02/23 02/03/23 16:05 05:45 Sodium 128 L 135 Potassium 4.0 4.4 Chloride 97 106 Carbon Dioxide 20 L 18 L BUN 36 H 33 H Creatinine 2.09 H 1.91 H Calcium 9.1 8.4 D Liver Function 02/02/23 Range/Units 16:05 Total Bilirubin 0.5 (0.0-1.0) mg/dL AST 38 H (5-37) U/L ALT 30 (0-40) U/L Alkaline Phosphatase 139 H (39-117) U/L Albumin 3.4 L (3.5-5.0) g/dL Urine 02/03/23 Range/Units 01:42 Urine Color Yellow Urine Appearance Cloudy Urine pH 5.5 (5.0-9.0) Ur Specific [place] <= 1.005 (1.005-1.025) Urine Protein 100 (2+) H (Neg-Trace) mg/dL Urine Glucose (UA) Negative (Negative) mg/dL All other labs normal. Assessment and Plan (1) Gangrene of left foot: Status: Acute Exam shows a thick eschar on the lateral plantar aspect of the left foot as described above. There was note of foul odor c/w gangrene as well. I therefore proceeded to do sharp excision debridement of this area. Full thickness of the eschar including skin and gangrenous subcutaneous fat was sharply excised with scissors. An area of 7x5 cm of full thickness skin and subcutaneous tissue was excised. I applied wet to dry dressings and wrapped the foot with Kerlix. I may need to repeat the debridement, probably in the OR depending on how the wound looks tomorrow. I explained to him that there is a change he may need amputation, whether trans met or BKA down the line. He does have known PVD, so I would recommend consulting Dr. Billings as well of Vascular Surgery. Time Spent With Patient Time: Total time managing care of this patient today ____ minutes. Procedures Date of Service Date of Service: 02/09/23
--- NOTE | 2023-02-03 09:14 | PM.EVENT ---
Event Note Date of Service: 02/03/23 Event Note: sharp excisional debridement done at bedside using scissors. full thickness of skin and subcutaneous fat was excised - gangrenous tissue noted I applied wet to dry dressings wrapped foot with gauze and Kerlix roll area 7 cm x 5 cm excised Time Spent With Patient Time: Total time managing care of this patient today ____ minutes.
--- NOTE | 2023-02-03 11:21 | MHC.CM.PN ---
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 PT VERIFIES PCP IS DARIELA AT [facility] (DARIELA ZULUAGA), FULLY VACC FOR COVID 19 AND PT REPORTS [facility] HAS A COPY OF HCP WHO IS SISTER SOULEYMANE MUNOZ, PT DECLINED TO COMPLETE A NEW ONE AT TIME OF ADMIT. 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
--- NOTE | 2023-02-03 11:46 | HO.PM.IMPN ---
Subjective Subjective Date of Service: 02/03/23 Interval History: follow-up on diabetic foot infection, osteomyelitis P no change Physical Exam Vital Signs: Vital Signs: Last Vital Signs Temp 97.7 F 02/03/23 10:52 Pulse 79 02/03/23 10:52 Resp 20 02/03/23 10:52 BP 109/57 L 02/03/23 10:52 Pulse Ox 99 02/03/23 10:52 O2 Del Method Room Air 02/03/23 10:52 BMI result Body Mass Index 29.2 Const: Other: General: AO X 3, no acute distress Resp: CTA bilateral CVS: S1,S2,RRR GI: +BS, NT, no distention Skin:see picture Neuro: motor grossly intact Psych: appropriate affect Skin: Other: Patient has an approximately 8 cm in diameter diabetic ulcer that is unstageable due to black eschar. There is some surrounding erythema on the lateral aspect of the foot. There is some foul-smelling purulent drainage. Objective Data Active Medications Amlodipine Besylate (Amlodipine Besylate 5 Mg Tablet) 5 mg PO DAILY [facility]; Protocol Last Admin: 02/03/23 08:27 Dose: 5 mg Documented By: KEVIN Aspirin (Aspirin Enteric Coated 81 Mg Tablet.) 81 mg PO DAILY [facility] Last Admin: 02/03/23 08:27 Dose: 81 mg Documented By: KEVIN Clopidogrel Bisulfate (Clopidogrel Bisulfate 75 Mg Tablet) 75 mg PO DAILY [facility] Last Admin: 02/03/23 08:27 Dose: 75 mg Documented By: KEVIN Dextrose (Dextrose 50 % 25 Gm/50 Ml Syringe) 25 gm IVPUSH Q15M PRN; Protocol PRN Reason: per Hypoglycemia Standing Ord. Glucose (Glucose Gel 15 Gm Gel..Gram.) 15 gm PO Q15M PRN; Protocol PRN Reason: per Hypoglycemia Standing Ord. Albumin Human (Kedbumin 25 %) 100 mls @ 100 mls/hr IV Q6H [facility] Stop: 02/03/23 14:29 Last Infusion: 02/03/23 09:27 Dose: 0 mls/hr Documented By: KEVIN Sodium Chloride (Ns) 1,000 mls @ 80 mls/hr IVCONT .[id number] [facility] Last Admin: 02/03/23 09:29 Dose: 80 mls/hr Documented By: KEVIN Piperacillin Sod/Tazobactam (Sod 2.25 gm/ Sodium Chloride) 50 mls @ 100 mls/hr IV Q6H [facility] Last Admin: 02/03/23 11:24 Dose: 100 mls/hr Documented By: KEVIN Vancomycin HCl 1,000 mg/ (Sodium Chloride) 270 mls @ 270 mls/hr IV Q24H [facility] Insulin Human Lispro (Insulin Lispro 100 Unit/Ml 3 Ml Vial) 0 unit SUBCUT QIDACHS [facility]; Protocol Last Admin: 02/03/23 11:24 Dose: 10 unit Documented By: KEVIN Methadone HCl (Methadone Hcl 20 Mg/2 Ml Oral.Conc) 30 mg PO DAILY [facility] Metoprolol Succinate (Metoprolol Succinate Er 100 Mg Tab.Er.24h) 100 mg PO DAILY [facility]; Protocol Last Admin: 02/03/23 08:27 Dose: 100 mg Documented By: KEVIN Nicotine (Nicotine 21 Mg Patch.Td24) 21 mg TRANSDERMA DAILY [facility] Last Admin: 02/03/23 08:27 Dose: 21 mg Documented By: KEVIN Non-Formulary Medication (Daqpfflhcn-Cazhflsy-Tubkfa Ala [Odefsey]) 1 tab PO DAILY [facility] Pharmacy Consult (Consult Rx Perform Med Rec) 1 each MISCELLANE ONCE PRN PRN Reason: Consult order Pharmacy Consult (Consult Rx Vancomycin Dosing) 1 each MISCELLANE DAILY PRN PRN Reason: Consult order Quetiapine Fumarate (Quetiapine Fumarate 100 Mg Tablet) 100 mg PO BEDTIME [facility] Last Admin: 02/02/23 20:44 Dose: 100 mg Documented By: AIYANA Sodium Chloride (0.9 % Sodium Chloride Flush 3 Ml Syringe) 3 ml IVFLUSH QSHIFT [facility] Last Admin: 02/03/23 11:27 Dose: 3 ml Documented By: KEVIN Vitamin D (Cholecalciferol (Vitamin D3) 25 Mcg Tablet) 50 mcg PO DAILY [facility] Last Admin: 02/03/23 08:27 Dose: 50 mcg Documented By: KEVIN Labs 02/03/23 05:45 02/03/23 05:45 Labs: Laboratory Results - last 24 hr 02/02/23 02/02/2323 16:04 16:05 16:05 MCV 92.1 MCH 32.2 MCHC 34.9 RDW 12.0 Plt Count 257 MPV 11.0 Immature Gran % (Auto) 0.9 H Neut % (Auto) 82.9 H Lymph % (Auto) 9.6 L [place] % (Auto) 5.6 Eos % (Auto) 0.6 Baso % (Auto) 0.4 Lymph # (Auto) 1.9 [place] # (Auto) 1.1 Eos # (Auto) 0.1 Baso # (Auto) 0.1 Abs Immat Gran (auto) 0.18 H Absolute Neuts (auto) 16.7 H Absolute Nucleated RBC 0.000 Nucleated RBC % (auto) 0.0 ESR > 140 H Anion Gap Estim Creat Clear Calc Estimated GFR POC Glucose Random Glucose Estimat Average Glucose Hemoglobin A1c % Lactic Acid 2.4 H* Lactic Acid F/U @ 2Hr Lactic Acid F/U @ 4Hr Calcium Total Bilirubin AST ALT Alkaline Phosphatase C-Reactive Protein Total Protein Albumin Urine Color Urine Appearance Urine pH Ur Specific [place] Urine Protein Urine Glucose (UA) Urine Ketones Urine Blood Urine Nitrite Ur Leukocyte Esterase Urine RBC Urine WBC Ur Squamous Epith Cells Urine Bacteria Hyaline Casts Blood Type Antibody Screen Crossmatch 02/02/23 02/02/23 02/02/23 16:05 18:34 18:59 MCV MCH MCHC RDW Plt Count MPV Immature Gran % (Auto) Neut % (Auto) Lymph % (Auto) [place] % (Auto) Eos % (Auto) Baso % (Auto) Lymph # (Auto) [place] # (Auto) Eos # (Auto) Baso # (Auto) Abs Immat Gran (auto) Absolute Neuts (auto) Absolute Nucleated RBC Nucleated RBC % (auto) ESR Anion Gap 15 Estim Creat Clear Calc 39.8 Estimated GFR 33 POC Glucose Random Glucose 295 H Estimat Average Glucose Hemoglobin A1c % Lactic Acid Lactic Acid F/U @ 2Hr 2.3 H* Lactic Acid F/U @ 4Hr Calcium 9.1 Total Bilirubin 0.5 AST 38 H ALT 30 Alkaline Phosphatase 139 H C-Reactive Protein 13.97 H Total Protein 8.3 H Albumin 3.4 L Urine Color Urine Appearance Urine pH Ur Specific [place] Urine Protein Urine Glucose (UA) Urine Ketones Urine Blood Urine Nitrite Ur Leukocyte Esterase Urine RBC Urine WBC Ur Squamous Epith Cells Urine Bacteria Hyaline Casts Blood Type A Negative Antibody Screen NEGATIVE Crossmatch See Detail 02/02/23 02/02/23 02/03/23 20:25 21:22 01:42 MCV MCH MCHC RDW Plt Count MPV Immature Gran % (Auto) Neut % (Auto) Lymph % (Auto) [place] % (Auto) Eos % (Auto) Baso % (Auto) Lymph # (Auto) [place] # (Auto) Eos # (Auto) Baso # (Auto) Abs Immat Gran (auto) Absolute Neuts (auto) Absolute Nucleated RBC Nucleated RBC % (auto) ESR Anion Gap Estim Creat Clear Calc Estimated GFR POC Glucose 224 H Random Glucose Estimat Average Glucose Hemoglobin A1c % Lactic Acid Lactic Acid F/U @ 2Hr Lactic Acid F/U @ 4Hr 1.6 Calcium Total Bilirubin AST ALT Alkaline Phosphatase C-Reactive Protein Total Protein Albumin Urine Color Yellow Urine Appearance Cloudy Urine pH 5.5 Ur Specific [place] <= 1.005 Urine Protein 100 (2+) H Urine Glucose (UA) Negative Urine Ketones Negative Urine Blood Trace H Urine Nitrite Negative Ur Leukocyte Esterase Negative Urine RBC 0-2 Urine WBC 0-5 Ur Squamous Epith Cells 0-2 Urine Bacteria None Seen Hyaline Casts 3-5 Blood Type Antibody Screen Crossmatch 02/03/23 02/03/23 02/03/23 05:45 05:45 05:45 MCV 92.2 MCH 31.3 MCHC 34.0 RDW 13.1 Plt Count 198 MPV 11.5 Immature Gran % (Auto) Neut % (Auto) Lymph % (Auto) [place] % (Auto) Eos % (Auto) Baso % (Auto) Lymph # (Auto) [place] # (Auto) Eos # (Auto) Baso # (Auto) Abs Immat Gran (auto) Absolute Neuts (auto) Absolute Nucleated RBC 0.000 Nucleated RBC % (auto) 0.0 ESR Anion Gap 15 Estim Creat Clear Calc 44.3 Estimated GFR 36 POC Glucose Random Glucose 302 H Estimat Average Glucose 206 Hemoglobin A1c % 8.8 Lactic Acid Lactic Acid F/U @ 2Hr Lactic Acid F/U @ 4Hr Calcium 8.4 D Total Bilirubin AST ALT Alkaline Phosphatase C-Reactive Protein Total Protein Albumin Urine Color Urine Appearance Urine pH Ur Specific [place] Urine Protein Urine Glucose (UA) Urine Ketones Urine Blood Urine Nitrite Ur Leukocyte Esterase Urine RBC Urine WBC Ur Squamous Epith Cells Urine Bacteria Hyaline Casts Blood Type Antibody Screen Crossmatch 02/03/23 02/03/23 07:44 10:54 MCV MCH MCHC RDW Plt Count MPV Immature Gran % (Auto) Neut % (Auto) Lymph % (Auto) [place] % (Auto) Eos % (Auto) Baso % (Auto) Lymph # (Auto) [place] # (Auto) Eos # (Auto) Baso # (Auto) Abs Immat Gran (auto) Absolute Neuts (auto) Absolute Nucleated RBC Nucleated RBC % (auto) ESR Anion Gap Estim Creat Clear Calc Estimated GFR POC Glucose 298 H 395 H* Random Glucose Estimat Average Glucose Hemoglobin A1c % Lactic Acid Lactic Acid F/U @ 2Hr Lactic Acid F/U @ 4Hr Calcium Total Bilirubin AST ALT Alkaline Phosphatase C-Reactive Protein Total Protein Albumin Urine Color Urine Appearance Urine pH Ur Specific [place] Urine Protein Urine Glucose (UA) Urine Ketones Urine Blood Urine Nitrite Ur Leukocyte Esterase Urine RBC Urine WBC Ur Squamous Epith Cells Urine Bacteria Hyaline Casts Blood Type Antibody Screen Crossmatch Assessment and Plan (1) Cellulitis: Status: Acute (2) Sepsis: Status: Acute Plan 57-year-old male with history of diabetes, osteomyelitis who presents with a nonhealing left foot wound/5th toe . Sepsis secondary to nonhealing wound,/diabetic foot ulcer-suspected acute osteomyelitis, high ESR and CRP--see pic --s/p bedside debridment by Dr. Wahl and may need further debridment in OR and even possible Amputation. -continue IV Abx, follow cultures PAD Continue home medications. COLT: on CKD, improving, continue IV and monitor DM--SSI, add Lantus HIV:?continue home medication hypertension-- hold hydrochlorothiazide in the setting of COLT hold furosemide Chronic anemia: s/p 1 unit RBC 02/02, no change, monitor Hyponatremia: Mild hyponatremia possibly related to decreased p.o. intake, resolved DVT prophylaxis : Chemoprophylaxis on hold because of anemia. compression device need for inpt: IV for sepsis, likely acute osteomylitis Time Spent With Patient Time: Total time managing care of this patient today ____ minutes. Quality Stroke Does the patient have a stroke diagnosis?: No VTE Prior VTE?: No VTE Risk Level:: Medical - moderate - high VTE Device Contraindication: N/A - Device Ordered VTE Drug Contraindication: N/A - Med Ordered
[2023-02-03] MEDS: Piperacillin Sodium/Tazobactam 3.375 GM in 0.9 % Sodium Chloride 50 ML IV ×2 (18:05→23:48)
[2023-02-03] MEDS: Insulin Glargine,Hum.rec.anlog 100 UNIT/ML 10 ML VIAL 20 UNIT SUBCUT (20:45)
[2023-02-04] VITALS (9 sets, daily range): BP systolic 107–151; BP diastolic 48–70; PULSE 77–91; RESP 16–20; TEMP 36.2–36.8; O2SAT 99–100
[2023-02-04] MEDS: Piperacillin Sodium/Tazobactam 3.375 GM in 0.9 % Sodium Chloride 50 ML IV ×3 (05:13→17:02)
[2023-02-04] MEDS: Metoprolol Succinate ER 100 MG TAB.ER.24H PO (07:47)
[2023-02-04] MEDS: amLODIPine Besylate 5 MG TABLET PO (07:50)
[2023-02-04] MEDS: Cholecalciferol (Vitamin D3) 25 MCG TABLET 50 MCG PO (07:50)
[2023-02-04] MEDS: Nicotine 21 MG PATCH.TD24 TRANSDERMA (07:57)
--- NOTE | 2023-02-04 08:20 | PM.PNGS ---
Subjective Subjective Date of Service: 02/04/23 Interval history: No new complaints No events reported Physical Exam Vital Signs: Vital Signs: Last Vital Signs Temp 98.2 F 02/04/23 07:24 Pulse 83 02/04/23 07:24 Resp 20 02/04/23 07:24 BP 130/61 02/04/23 07:24 Pulse Ox 100 02/04/23 07:24 O2 Del Method Room Air 02/04/23 07:24 BMI result Body Mass Index 29.2 Const: General: comfortable and no acute distress Resp: Effort & Inspection: normal respiratory effort Cardio: Rate: regular rate GI: Palpation (GI): Soft to palpation, not firm and nontender Extrem: Other: Left foot - open wound, improved from yesterday but still with nonviable subcutaneous tissue, 5th distal metatarsal exposed, still with some foul odor Fifth toe appears to have dry gangrene, 4th toe slightly discolored as well Objective Data Active Medications Amlodipine Besylate (Amlodipine Besylate 5 Mg Tablet) 5 mg PO DAILY [facility]; Protocol Last Admin: 02/04/23 07:50 Dose: 5 mg Documented By: OLIVIA Aspirin (Aspirin Enteric Coated 81 Mg Tablet.) 81 mg PO DAILY [facility] Last Admin: 02/03/23 08:27 Dose: 81 mg Documented By: KEVIN Clopidogrel Bisulfate (Clopidogrel Bisulfate 75 Mg Tablet) 75 mg PO DAILY [facility] Last Admin: 02/04/23 07:50 Dose: 75 mg Documented By: OLIVIA Dextrose (Dextrose 50 % 25 Gm/50 Ml Syringe) 25 gm IVPUSH Q15M PRN; Protocol PRN Reason: per Hypoglycemia Standing Ord. Glucose (Glucose Gel 15 Gm Gel..Gram.) 15 gm PO Q15M PRN; Protocol PRN Reason: per Hypoglycemia Standing Ord. Sodium Chloride (Ns) 1,000 mls @ 80 mls/hr IVCONT .[id number] [facility] Last Admin: 02/03/23 20:45 Dose: 80 mls/hr Documented By: CHARU Vancomycin HCl 1,000 mg/ (Sodium Chloride) 270 mls @ 270 mls/hr IV Q24H [facility] Last Infusion: 02/03/23 20:13 Dose: 0 mls/hr Documented By: CHARU Piperacillin Sod/Tazobactam (Sod 3.375 gm/ Sodium Chloride) 50 mls @ 100 mls/hr IV Q6H [facility] Last Infusion: 02/04/23 05:51 Dose: 0 mls/hr Documented By: XAVIER Insulin Glargine (Insulin Glargine,Hum.Rec.Anlog 100 Unit/Ml 10 Ml Vial) 20 unit SUBCUT BEDTIME [facility] Last Admin: 02/03/23 20:45 Dose: 20 unit Documented By: CHARU Insulin Human Lispro (Insulin Lispro 100 Unit/Ml 3 Ml Vial) 0 unit SUBCUT QIDACHS [facility]; Protocol Last Admin: 02/03/23 20:46 Dose: 10 unit Documented By: CHARU Methadone HCl (Methadone Hcl 20 Mg/2 Ml Oral.Conc) 30 mg PO DAILY [facility] Metoprolol Succinate (Metoprolol Succinate Er 100 Mg Tab.Er.24h) 100 mg PO DAILY [facility]; Protocol Last Admin: 02/04/23 07:47 Dose: 100 mg Documented By: OLIVIA Nicotine (Nicotine 21 Mg Patch.Td24) 21 mg TRANSDERMA DAILY [facility] Last Admin: 02/04/23 07:57 Dose: 21 mg Documented By: OLIVIA Pt Own (Emtricitab- Rilpivir-Tenofo Ala [Odefsey] 200-25-25 Mg Tablet) 1 tab PO DAILY [facility] Last Admin: 02/03/23 17:56 Dose: 1 tab Documented By: CHARU Pharmacy Consult (Consult Rx Perform Med Rec) 1 each MISCELLANE ONCE PRN PRN Reason: Consult order Pharmacy Consult (Consult Rx Vancomycin Dosing) 1 each MISCELLANE DAILY PRN PRN Reason: Consult order Quetiapine Fumarate (Quetiapine Fumarate 100 Mg Tablet) 100 mg PO BEDTIME [facility] Last Admin: 02/03/23 19:40 Dose: 100 mg Documented By: CHARU Sodium Chloride (0.9 % Sodium Chloride Flush 3 Ml Syringe) [facility] Last Admin: 02/04/23 07:54 Dose: 3 ml Documented By: OLIVIA Vitamin D (Cholecalciferol (Vitamin D3) 25 Mcg Tablet) 50 mcg PO DAILY [facility] Last Admin: 02/04/23 07:50 Dose: 50 mcg Documented By: OLIVIA Labs 02/03/23 05:45 02/04/23 05:31 Labs: Laboratory Results - last 24 hr 02/03/23 02/03/23 02/03/23 10:54 15:55 20:09 Estim Creat Clear Calc Estimated GFR POC Glucose 395 H* 443 H* 434 H* 02/04/23 02/04/23 05:31 07:26 Estim Creat Clear Calc 44.1 Estimated GFR 36 POC Glucose 307 H Microbiology Microbiology Results: Microbiology 02/02/23 18:35 Blood Culture - Preliminary Blood - Venous No growth after 24 hours. 02/02/23 16:04 Blood Culture - Preliminary Blood - Venous No growth after 24 hours. Procedures Date of Service Date of Service: 02/04/23 Progress Note: A&P Assessment and plan (1) Gangrene of left foot: Status: Acute Assessment and Plan: I have done excisional debridement yesterday for a thick eschar with foul smell Open wound appears better but still with nonviable tissue, malodorous, exposed bone - 5th metatarsal head I had a long discussion with the patient I explained to him that he may need BKA of the left because of the presence persistent nonviable tissue, exposed bone He wants to save his foot but is willing to have amputation of the 5th toe including the metatarsal for now I explained to him that this is unlikely to heal and there will be not enough soft tissue coverage He will have an open wound after amputation therefore He says he is is willing to take a chance as long as there is a possibility of saving his left foot Will proceed with debridement of the left foot with amputation of the 5th toe at this time including the metatarsal Discussed with his sister as well Hospitalist aware of plan Time Spent With Patient Time: Total time managing care of this patient today ____ minutes. Quality Stroke Does the patient have a stroke diagnosis?: No VTE Prior VTE?: No VTE Risk Level:: Medical - moderate - high VTE Device Contraindication: N/A - Device Ordered VTE Drug Contraindication: N/A - Med Ordered
[2023-02-04] MEDS: Insulin Lispro 100 UNIT/ML 3 ML VIAL SUBCUT ×4 (08:37→20:32)
--- NOTE | 2023-02-04 09:28 | HO.PM.IMPN ---
Subjective Subjective Date of Service: 02/04/23 Interval History: follow-up on diabetic foot infection, osteomyelitis no new issues Physical Exam Vital Signs: Vital Signs: Last Vital Signs Temp 98.2 F 02/04/23 07:24 Pulse 83 02/04/23 07:24 Resp 20 02/04/23 07:24 BP 130/61 02/04/23 07:24 Pulse Ox 100 02/04/23 07:24 O2 Del Method Room Air 02/04/23 07:24 BMI result Body Mass Index 29.2 Const: Other: General: AO X 3, no acute distress Resp: CTA bilateral CVS: S1,S2,RRR GI: +BS, NT, no distention Skin:see picture Neuro: motor grossly intact Psych: appropriate affect Objective Data Active Medications Amlodipine Besylate (Amlodipine Besylate 5 Mg Tablet) 5 mg PO DAILY [facility]; Protocol Last Admin: 02/04/23 07:50 Dose: 5 mg Documented By: OLIVIA Aspirin (Aspirin Enteric Coated 81 Mg Tablet.) 81 mg PO DAILY [facility] Last Admin: 02/04/23 08:37 Dose: Not Given Documented By: OLIVIA Non-Admin Reason: Physician Held Med Clopidogrel Bisulfate (Clopidogrel Bisulfate 75 Mg Tablet) 75 mg PO DAILY [facility] Last Admin: 02/04/23 09:24 Dose: Not Given Documented By: OLIVIA Non-Admin Reason: Physician Held Med Dextrose (Dextrose 50 % 25 Gm/50 Ml Syringe) 25 gm IVPUSH Q15M PRN; Protocol PRN Reason: per Hypoglycemia Standing Ord. Glucose (Glucose Gel 15 Gm Gel..Gram.) 15 gm PO Q15M PRN; Protocol PRN Reason: per Hypoglycemia Standing Ord. Sodium Chloride (Ns) 1,000 mls @ 80 mls/hr IVCONT .[id number] [facility] Last Admin: 02/04/23 09:14 Dose: 80 mls/hr Documented By: OLIVIA Vancomycin HCl 1,000 mg/ (Sodium Chloride) 270 mls @ 270 mls/hr IV Q24H [facility] Last Infusion: 02/03/23 20:13 Dose: 0 mls/hr Documented By: CHARU Piperacillin Sod/Tazobactam (Sod 3.375 gm/ Sodium Chloride) 50 mls @ 100 mls/hr IV Q6H [facility] Last Infusion: 02/04/23 05:51 Dose: 0 mls/hr Documented By: XAVIER Insulin Glargine (Insulin Glargine,Hum.Rec.Anlog 100 Unit/Ml 10 Ml Vial) 20 unit SUBCUT BEDTIME [facility] Last Admin: 02/03/23 20:45 Dose: 20 unit Documented By: CHARU Insulin Human Lispro (Insulin Lispro 100 Unit/Ml 3 Ml Vial) 0 unit SUBCUT QIDACHS [facility]; Protocol Last Admin: 02/04/23 08:37 Dose: 8 unit Documented By: OLIVIA Methadone HCl (Methadone Hcl 20 Mg/2 Ml Oral.Conc) 30 mg PO DAILY [facility] Metoprolol Succinate (Metoprolol Succinate Er 100 Mg Tab.Er.24h) 100 mg PO DAILY [facility]; Protocol Last Admin: 02/04/23 07:47 Dose: 100 mg Documented By: OLIVIA Nicotine (Nicotine 21 Mg Patch.Td24) 21 mg TRANSDERMA DAILY [facility] Last Admin: 02/04/23 07:57 Dose: 21 mg Documented By: OLIVIA Pt Own (Emtricitab- Rilpivir-Tenofo Ala [Odefsey] 200-25-25 Mg Tablet) 1 tab PO DAILY [facility] Last Admin: 02/04/23 08:37 Dose: Not Given Documented By: OLIVIA Non-Admin Reason: NPO Pharmacy Consult (Consult Rx Perform Med Rec) 1 each MISCELLANE ONCE PRN PRN Reason: Consult order Pharmacy Consult (Consult Rx Vancomycin Dosing) 1 each MISCELLANE DAILY PRN PRN Reason: Consult order Quetiapine Fumarate (Quetiapine Fumarate 100 Mg Tablet) 100 mg PO BEDTIME [facility] Last Admin: 02/03/23 19:40 Dose: 100 mg Documented By: CHARU Sodium Chloride (0.9 % Sodium Chloride Flush 3 Ml Syringe) 3 ml IVFLUSH QSHIFT [facility] Last Admin: 02/04/23 07:54 Dose: 3 ml Documented By: OLIVIA Vitamin D (Cholecalciferol (Vitamin D3) 25 Mcg Tablet) 50 mcg PO DAILY [facility] Last Admin: 02/04/23 07:50 Dose: 50 mcg Documented By: OLIVIA Labs 02/03/23 05:45 02/04/23 05:31 Labs: Laboratory Results - last 24 hr 02/03/23 02/03/23 02/03/23 10:54 15:55 20:09 Estim Creat Clear Calc Estimated GFR POC Glucose 395 H* 443 H* 434 H* 02/04/23 02/04/23 05:31 07:26 Estim Creat Clear Calc 44.1 Estimated GFR 36 POC Glucose 307 H Microbiology Microbiology Results: Microbiology 02/02/23 18:35 Blood Culture - Preliminary Blood - Venous No growth after 24 hours. 02/02/23 16:04 Blood Culture - Preliminary Blood - Venous No growth after 24 hours. Assessment and Plan (1) Cellulitis: Status: Acute (2) Sepsis: Status: Acute Plan 57-year-old male with history of diabetes, osteomyelitis who presents with a nonhealing left foot wound/5th toe . Sepsis secondary to nonhealing wound,/diabetic foot ulcer-suspected acute osteomyelitis, high ESR and CRP--see pic --s/p bedside debridment by Dr. Wahl and plan for debridment today and probable definitive ampuation -continue IV Abx, follow cultures PAD Continue home medications. COLT: on CKD, improving, continue IV and monitor, I suspect this baseline DM--SSI, add Lantus HIV:?continue home medication hypertension-- hold hydrochlorothiazide in the setting of COLT hold furosemide Chronic anemia: s/p 1 unit RBC 02/02, no change, monitor Hyponatremia: Mild hyponatremia possibly related to decreased p.o. intake, resolved DVT prophylaxis : Chemoprophylaxis on hold because of anemia. compression device need for inpt: IV for sepsis, likely acute osteomylitis Time Spent With Patient Time: Total time managing care of this patient today ____ minutes. Quality Stroke Does the patient have a stroke diagnosis?: No VTE Prior VTE?: No VTE Risk Level:: Medical - moderate - high VTE Device Contraindication: N/A - Device Ordered VTE Drug Contraindication: N/A - Med Ordered
--- NOTE | 2023-02-04 09:32 | PM.CNGS ---
History of Present Illness Consult details Consult date: 02/04/23 Reason for consult: wound care Narrative: Pleasant 57-year-old gentleman with a history of diabetes and non healing lower extremity ulcers presented to the hospital with nonhealing left foot ulcer. He actually had undergone right lower extremity endovascular treatment and his left leg subsequently progressed. [facility] and then there was concern about his left foot. He was sent into the hospital. He was found to have an elevated white count up to 20. He was subsequently admitted and treated with IV antibiotics. He now presents for vascular evaluation. Of note he had undergone right lower extremity endovascular intervention by me approximately a week or 2 prior. Review of Systems Review of Systems: Yes all other systems are reviewed and are negative Constitutional: Constitutional: Reports no additional constitutional complaints ENT: Reports Normal hearing present Cardiovascular: Cardiovascular: Denies chest pain, Denies chest pain at rest, Denies chest pain with activity and Denies pedal edema Respiratory: Respiratory: Denies cough Gastrointestinal: Gastrointestinal: Denies abdominal pain Musculoskeletal: Musculoskeletal: Denies abnormal gait, Denies muscle cramps and Denies radiating pain into limb Integumentary/Breasts: Skin/Breast: Denies skin ulcer and Denies wounds Neurologic: Reports Normal hearing present and Denies abnormal gait Psychiatric: Psychiatric: Reports no additional psychiatric complaints PMFSH Past Medical History Medical History (Updated 02/03/23 @ 09:10 by Doug Wahl MD) Cirrhosis COVID-19 vaccine administered Depression Diabetes Gangrene of left foot GERD (gastroesophageal reflux disease) Hepatitis History of hyperbaric oxygen therapy HIV (human immunodeficiency virus infection) Hx of drug dependence Hyperlipidemia Hypertension Osteomyelitis Toe ulcer Family History Family History Father Diabetes HTN (hypertension) Mother HTN (hypertension) Daughter No problems noted. Surgical History Surgical History H/O skin graft S/P angiogram of extremity Status post debridement Social History Social History Household Members: Family Housing: House Are you a primary plant health care technician to a significant other at home: No Do you presently have visiting nurse or other home services: Yes Alcohol intake: never Patient Tobacco Use Status: Current everyday Tobacco user Tobacco use type: Cigarette Cigarette Packs Per Day: 0 Cigarettes Per Day: 10 Years Smoked: 35 e-Cigarette/Vaping Use: Never Used Second Hand Smoke Exposure: No Substance Use Type: Former Substance User and Heroin Advance Directives Date on File: 03/13/21 service: No Current occupational status: disabled Meds Allergies Allergy/AdvReac Type Severity Reaction Status Date / Time trazodone [TRAZODONE] Allergy Unknown UNKNOWN Verified 01/20/23 13:17 Active Medications: Current Medications Amlodipine Besylate (Amlodipine Besylate 5 Mg Tablet) 5 mg PO DAILY [facility]; Protocol Last Admin: 02/04/23 07:50 Dose: 5 mg Aspirin (Aspirin Enteric Coated 81 Mg Tablet.Dr) 81 mg PO DAILY [facility] Last Admin: 02/04/23 08:37 Dose: Not Given Clopidogrel Bisulfate (Clopidogrel Bisulfate 75 Mg Tablet) 75 mg PO DAILY [facility] Last Admin: 02/04/23 09:24 Dose: Not Given Dextrose (Dextrose 50 % 25 Gm/50 Ml Syringe) 25 gm IVPUSH Q15M PRN; Protocol PRN Reason: per Hypoglycemia Standing Ord. Glucose (Glucose Gel 15 Gm Gel..Gram.) 15 gm PO Q15M PRN; Protocol PRN Reason: per Hypoglycemia Standing Ord. Sodium Chloride (Ns) 1,000 mls @ 80 mls/hr IVCONT .[id number] [facility] Last Admin: 02/04/23 09:14 Dose: 80 mls/hr Vancomycin HCl 1,000 mg/ (Sodium Chloride) 270 mls @ 270 mls/hr IV Q24H [facility] Last Infusion: 02/03/23 20:13 Dose: Infused Piperacillin Sod/Tazobactam (Sod 3.375 gm/ Sodium Chloride) 50 mls @ 100 mls/hr IV Q6H [facility] Last Infusion: 02/04/23 05:51 Dose: Infused Insulin Glargine (Insulin Glargine,Hum.Rec.Anlog 100 Unit/Ml 10 Ml Vial) 20 unit SUBCUT BEDTIME [facility] Last Admin: 02/03/23 20:45 Dose: 20 unit Insulin Human Lispro (Insulin Lispro 100 Unit/Ml 3 Ml Vial) 0 unit SUBCUT QIDACHS [facility]; Protocol Last Admin: 02/04/23 08:37 Dose: 8 unit Methadone HCl (Methadone Hcl 20 Mg/2 Ml Oral.Conc) 30 mg PO DAILY [facility] Metoprolol Succinate (Metoprolol Succinate Er 100 Mg Tab.Er.24h) 100 mg PO DAILY [facility]; Protocol Last Admin: 02/04/23 07:47 Dose: 100 mg Nicotine (Nicotine 21 Mg Patch.Td24) 21 mg TRANSDERMA DAILY [facility] Last Admin: 02/04/23 07:57 Dose: 21 mg Pt Own (Emtricitab- Rilpivir-Tenofo Ala [Odefsey] 200-25-25 Mg Tablet) 1 tab PO DAILY [facility] Last Admin: 02/04/23 08:37 Dose: Not Given Pharmacy Consult (Consult Rx Perform Med Rec) 1 each MISCELLANE ONCE PRN PRN Reason: Consult order Pharmacy Consult (Consult Rx Vancomycin Dosing) 1 each MISCELLANE DAILY PRN PRN Reason: Consult order Quetiapine Fumarate (Quetiapine Fumarate 100 Mg Tablet) 100 mg PO BEDTIME [facility] Last Admin: 02/03/23 19:40 Dose: 100 mg Sodium Chloride (0.9 % Sodium Chloride Flush 3 Ml Syringe) 3 ml IVFLUSH QSHIFT [facility] Last Admin: 02/04/23 07:54 Dose: 3 ml Vitamin D (Cholecalciferol (Vitamin D3) 25 Mcg Tablet) 50 mcg PO DAILY [facility] Last Admin: 02/04/23 07:50 Dose: 50 mcg Home Medications Medication Instructions Recorded Confirmed Last Taken Type aspirin 81 mg tablet,delayed 81 mg PO DAILY 08/08/20 02/02/23 02/02/23 History release blood sugar diagnostic #10 ea 08/08/20 10/16/20 Unknown History cholecalciferol (vitamin D3) 50 50 mcg PO DAILY 08/08/20 02/02/23 02/02/23 History mcg (2,000 unit) tablet dulaglutide 1.5 mg/0.5 mL 1.5 mg subcut FR 08/08/20 02/02/23 04/18/21 History subcutaneous pen injector furosemide 20 mg tablet 20 mg PO DAILY PRN swelling 08/08/20 02/02/23 Unknown History hydrochlorothiazide 25 mg tablet 25 mg PO DAILY 08/08/20 02/02/23 02/02/23 History insulin syringe-needle U-100 1 mL #10 ea 08/08/20 10/16/20 Unknown History 29 gauge x 1/2 metoprolol succinate 100 mg 100 mg PO DAILY 08/08/20 02/02/23 02/02/23 History tablet,extended release 24 hr quetiapine 100 mg tablet 100 mg PO BEDTIME 08/08/20 02/02/23 02/01/23 History lancets 33 gauge #100 ea 11/08/20 Unknown History metformin 500 mg tablet,extended 1,000 mg PO BID 11/08/20 02/02/23 02/02/23 History release 24 hr pen needle, diabetic 32 gauge x #50 ea 11/08/20 Unknown History methadone 10 mg/mL oral concentrate 30 mg PO DAILY 11/12/20 03/13/21 04/22/21 10:30 History emtricitabine 200 mg-rilpivirine 1 tab PO DAILY 12/05/20 02/02/23 02/02/23 History 25 mg-tenofovir alafenam 25 mg tablet (Bryan) insulin aspart U-100 100 unit/mL 10 - 20 unit subcut TIDWM 12/05/20 02/02/23 02/02/23 History (3 mL) subcutaneous pen (Novolog FlexPen U-100 Insulin aspart) insulin degludec 100 unit/mL (3 30 unit subcut BEDTIME 04/22/21 02/02/23 02/01/23 History mL) subcutaneous pen (Tresiba FlexTouch U-100 insulin) amlodipine 5 mg tablet 5 mg PO DAILY 02/02/23 02/02/23 02/02/23 History nicotine 10 mg inhalation 1 inh inhalation Q4H PRN CRAvings 02/02/23 02/02/23 Unknown History cartridge (Nicotrol) nicotine 21 mg/24 hr daily 1 patch topical DAILY 02/02/23 02/02/23 Unknown History transdermal patch rosuvastatin 20 mg tablet 20 mg PO BEDTIME 02/02/23 02/02/23 02/01/23 History Physical Exam Vital Signs: Vital Signs: Last Vital Signs Temp 98.2 F 02/04/23 07:24 Pulse 83 02/04/23 07:24 Resp 20 02/04/23 07:24 BP 130/61 02/04/23 07:24 Pulse Ox 100 02/04/23 07:24 O2 Del Method Room Air 02/04/23 07:24 BMI result Body Mass Index 29.2 Const: General: cooperative, healthy appearing and comfortable Orientation/consciousness: oriented to person, oriented to place and oriented to time HEENT: Head: Yes normal to inspection Neck: Neck: Yes normal visual inspection Carotids: no bruits Chest: Chest palpation & inspection: normal inspection of the chest Resp: Effort & Inspection: normal respiratory effort and able to speak in complete sentences Auscultation: clear to auscultation bilaterally, no crackles, no rales, no rhonchi and no wheezes Cardio: Other: Bilateral DP signals Rate: regular rate Rhythm: regular rhythm Heart sounds: S1 normal heart sound present and S2 normal heart sound present Bruits: no carotid bruits GI: Inspection: Yes normal to inspection Skin: Other: Left foot plantar ulcer exposed bone 5th toe dusky. Plantar aspect loss of a fair amount of skin surface. Wounds: no wounds Hair: normal Neuro: General: oriented to person, oriented to place and oriented to time Cranial nerves: Yes CN's II-XII intact bilaterally and Yes Normal hearing present Cognition (Neuro): normal cognition Motor exam (neuro): 5/5 motor strength present throughout Extrem: Other: venous exam: No significant superficial varicosities or spider telangiectasias, minimal edema General: No clubbing, No cyanosis and No edema Psych: Appearance: grossly normal Mental Status: mental status grossly normal Speech and movement: Normal speech and movement present Results Labs 02/03/23 05:45 02/04/23 05:31 Labs: Abnormal lab results 02/03/23 02/03/23 02/03/23 Range/Units 10:54 15:55 20:09 Creatinine (0.5-1.4) mg/dL POC Glucose 395 H* 443 H* 434 H* (60-115) mg/dL 02/04/23 02/04/23 Range/Units 05:31 07:26 Creatinine 1.92 H (0.5-1.4) mg/dL POC Glucose 307 H (60-115) mg/dL BMP 02/04/23 05:31 Creatinine 1.92 H Urine 02/03/23 Range/Units 01:42 Urine Color Yellow Urine Appearance Cloudy Urine pH 5.5 (5.0-9.0) Ur Specific [place] <= 1.005 (1.005-1.025) Urine Protein 100 (2+) H (Neg-Trace) mg/dL Urine Glucose (UA) Negative (Negative) mg/dL All other labs normal. Assessment and Plan (1) PAD (peripheral artery disease): Status: Acute Plan In short patient has nonhealing left lower extremity ulcer. He is scheduled for operative debridement by General surgery today. He will require repeat endovascular intervention at some point. May benefit from Nephrology evaluation although I do believe most of his disease is chronic in nature. Will continue to monitor his status with you. Thank you for allowing us to assist in his care. If there are any questions or concerns please do not hesitate to contact us. Time Spent With Patient Time: Total time managing care of this patient today ____ minutes. Procedures Date of Service Date of Service: 02/04/23
--- NOTE | 2023-02-04 10:21 | HO.ANESPROP2 ---
HPI - Anesthesia Eval Consult details Narrative: for left 5th toe amputation PMFSH Active Problems Active Problems: All Active Problems (Updated 02/03/23 @ 09:10 by Doug Wahl MD) Gangrene of left foot (Acute) Cellulitis (Acute) Sepsis (Acute) Anemia of chronic disease (Acute) Charcot foot due to diabetes mellitus (Acute) PAD (peripheral artery disease) (Acute) Osteomyelitis (Acute) Toe ulcer (Acute) Right leg swelling (Acute) Leukocytosis (Acute) Non-healing wound (Acute) Acute kidney injury (Acute) H/O skin graft (Acute) Hypertension (Acute) Hyperlipidemia (Acute) Hx of drug dependence (Acute) Hepatitis (Acute) GERD (gastroesophageal reflux disease) (Acute) Diabetes (Acute) Depression (Acute) COVID-19 vaccine administered (Acute) Cirrhosis (Acute) Diabetic foot ulcer (Acute) PVD (peripheral vascular disease) (Acute) Osteomyelitis (Acute) HIV (human immunodeficiency virus infection) (Acute) Past Medical History Medical History (Updated 02/03/23 @ 09:10 by Doug Wahl MD) Cirrhosis COVID-19 vaccine administered Depression Diabetes Gangrene of left foot GERD (gastroesophageal reflux disease) Hepatitis History of hyperbaric oxygen therapy HIV (human immunodeficiency virus infection) Hx of drug dependence Hyperlipidemia Hypertension Osteomyelitis Toe ulcer Family History Family History Father Diabetes HTN (hypertension) Mother HTN (hypertension) Daughter No problems noted. Family history of problems with anesthesia: No Surgical History Surgical History H/O skin graft S/P angiogram of extremity Status post debridement History of Problems with Anesthesia: No Social History Social History Household Members: Family Housing: House Are you a primary palliative care specialist to a significant other at home: No Do you presently have visiting nurse or other home services: Yes Alcohol intake: never Patient Tobacco Use Status: Current everyday Tobacco user Tobacco use type: Cigarette Cigarette Packs Per Day: 0 Cigarettes Per Day: 10 Years Smoked: 35 e-Cigarette/Vaping Use: Never Used Second Hand Smoke Exposure: No Substance Use Type: Former Substance User and Heroin Advance Directives Date on File: 03/13/21 service: No Current occupational status: disabled Meds Allergies Allergy/AdvReac Type Severity Reaction Status Date / Time trazodone [TRAZODONE] Allergy Unknown UNKNOWN Verified 01/20/23 13:17 Active Medications: Current Medications Amlodipine Besylate (Amlodipine Besylate 5 Mg Tablet) 5 mg PO DAILY [facility]; Protocol Last Admin: 02/04/23 07:50 Dose: 5 mg Aspirin (Aspirin Enteric Coated 81 Mg Tablet.Dr) 81 mg PO DAILY [facility] Last Admin: 02/04/23 08:37 Dose: Not Given Clopidogrel Bisulfate (Clopidogrel Bisulfate 75 Mg Tablet) 75 mg PO DAILY [facility] Last Admin: 02/04/23 09:24 Dose: Not Given Dextrose (Dextrose 50 % 25 Gm/50 Ml Syringe) 25 gm IVPUSH Q15M PRN; Protocol PRN Reason: per Hypoglycemia Standing Ord. Glucose (Glucose Gel 15 Gm Gel..Gram.) 15 gm PO Q15M PRN; Protocol PRN Reason: per Hypoglycemia Standing Ord. Sodium Chloride (Ns) 1,000 mls @ 80 mls/hr IVCONT .[id number] [facility] Last Infusion: 02/04/23 09:41 Dose: 0 mls/hr Vancomycin HCl 1,000 mg/ (Sodium Chloride) 270 mls @ 270 mls/hr IV Q24H [facility] Last Infusion: 02/03/23 20:13 Dose: Infused Piperacillin Sod/Tazobactam (Sod 3.375 gm/ Sodium Chloride) 50 mls @ 100 mls/hr IV Q6H [facility] Last Infusion: 02/04/23 05:51 Dose: Infused Insulin Glargine (Insulin Glargine,Hum.Rec.Anlog 100 Unit/Ml 10 Ml Vial) 20 unit SUBCUT BEDTIME [facility] Last Admin: 02/03/23 20:45 Dose: 20 unit Insulin Human Lispro (Insulin Lispro 100 Unit/Ml 3 Ml Vial) 0 unit SUBCUT QIDACHS [facility]; Protocol Last Admin: 02/04/23 08:37 Dose: 8 unit Methadone HCl (Methadone Hcl 20 Mg/2 Ml Oral.Conc) 30 mg PO DAILY [facility] Metoprolol Succinate (Metoprolol Succinate Er 100 Mg Tab.Er.24h) 100 mg PO DAILY [facility]; Protocol Last Admin: 02/04/23 07:47 Dose: 100 mg Nicotine (Nicotine 21 Mg Patch.Td24) 21 mg TRANSDERMA DAILY [facility] Last Admin: 02/04/23 07:57 Dose: 21 mg Pt Own (Emtricitab- Rilpivir-Tenofo Ala [Odefsey] 200-25-25 Mg Tablet) 1 tab PO DAILY [facility] Last Admin: 02/04/23 08:37 Dose: Not Given Pharmacy Consult (Consult Rx Perform Med Rec) 1 each MISCELLANE ONCE PRN PRN Reason: Consult order Pharmacy Consult (Consult Rx Vancomycin Dosing) 1 each MISCELLANE DAILY PRN PRN Reason: Consult order Quetiapine Fumarate (Quetiapine Fumarate 100 Mg Tablet) 100 mg PO BEDTIME [facility] Last Admin: 02/03/23 19:40 Dose: 100 mg Sodium Chloride (0.9 % Sodium Chloride Flush 3 Ml Syringe) 3 ml IVFLUSH QSHIFT [facility] Last Admin: 02/04/23 07:54 Dose: 3 ml Vitamin D (Cholecalciferol (Vitamin D3) 25 Mcg Tablet) 50 mcg PO DAILY [facility] Last Admin: 02/04/23 07:50 Dose: 50 mcg Home Medications Medication Instructions Recorded Confirmed Last Taken Type aspirin 81 mg tablet,delayed 81 mg PO DAILY 08/08/20 02/02/23 02/02/23 History release blood sugar diagnostic #10 ea 08/08/20 10/16/20 Unknown History cholecalciferol (vitamin D3) 50 50 mcg PO DAILY 08/08/20 02/02/23 02/02/23 History mcg (2,000 unit) tablet dulaglutide 1.5 mg/0.5 mL 1.5 mg subcut FR 08/08/20 02/02/23 04/18/21 History subcutaneous pen injector furosemide 20 mg tablet 20 mg PO DAILY PRN swelling 08/08/20 02/02/23 Unknown History hydrochlorothiazide 25 mg tablet 25 mg PO DAILY 08/08/20 02/02/23 02/02/23 History insulin syringe-needle U-100 1 mL #10 ea 08/08/20 10/16/20 Unknown History 29 gauge x 1/2 metoprolol succinate 100 mg 100 mg PO DAILY 08/08/20 02/02/23 02/02/23 History tablet,extended release 24 hr quetiapine 100 mg tablet 100 mg PO BEDTIME 08/08/20 02/02/23 02/01/23 History lancets 33 gauge #100 ea 11/08/20 Unknown History metformin 500 mg tablet,extended 1,000 mg PO BID 11/08/20 02/02/23 02/02/23 History release 24 hr pen needle, diabetic 32 gauge x #50 ea 11/08/20 Unknown History methadone 10 mg/mL oral concentrate 30 mg PO DAILY 11/12/20 03/13/21 04/22/21 10:30 History emtricitabine 200 mg-rilpivirine 1 tab PO DAILY 12/05/20 02/02/23 02/02/23 History 25 mg-tenofovir alafenam 25 mg tablet (Sydneyefsey) insulin aspart U-100 100 unit/mL 10 - 20 unit subcut TIDWM 12/05/20 02/02/23 02/02/23 History (3 mL) subcutaneous pen (Novolog FlexPen U-100 Insulin aspart) insulin degludec 100 unit/mL (3 30 unit subcut BEDTIME 04/22/21 02/02/23 02/01/23 History mL) subcutaneous pen (Tresiba FlexTouch U-100 insulin) amlodipine 5 mg tablet 5 mg PO DAILY 02/02/23 02/02/23 02/02/23 History nicotine 10 mg inhalation 1 inh inhalation Q4H PRN CRAvings 02/02/23 02/02/23 Unknown History cartridge (Nicotrol) nicotine 21 mg/24 hr daily 1 patch topical DAILY 02/02/23 02/02/23 Unknown History transdermal patch rosuvastatin 20 mg tablet 20 mg PO BEDTIME 02/02/23 02/02/23 02/01/23 History Exam Exam Date and Time: February 04, 2023 102 Height,Weight and Vital Signs: Height 5 ft 7 in Weight 84.5 kg Last Vital Signs Temp 97.5 F 02/04/23 09:50 Pulse 77 02/04/23 09:50 Resp 16 02/04/23 09:50 BP 125/54 L 02/04/23 09:50 Pulse Ox 100 02/04/23 09:50 O2 Del Method Room Air 02/04/23 09:50 Pertinent Lab Results Pertinent Lab Results: Laboratory Tests 02/02/23 02/02/23 02/02/23 16:04 16:05 16:05 WBC 20.2 H RBC 2.27 L Hgb 7.3 L Hct 20.9 L* MCV 92.1 MCH 32.2 MCHC 34.9 RDW 12.0 Plt Count 257 MPV 11.0 Immature Gran % (Auto) 0.9 H Neut % (Auto) 82.9 H Lymph % (Auto) 9.6 L Pepin % (Auto) 5.6 Eos % (Auto) 0.6 Baso % (Auto) 0.4 Lymph # (Auto) 1.9 Pepin # (Auto) 1.1 Eos # (Auto) 0.1 Baso # (Auto) 0.1 Abs Immat Gran (auto) 0.18 H Absolute Neuts (auto) 16.7 H Absolute Nucleated RBC 0.000 Nucleated RBC % (auto) 0.0 ESR > 140 H Sodium Potassium Chloride Carbon Dioxide Anion Gap BUN Creatinine Estim Creat Clear Calc Estimated GFR POC Glucose Random Glucose Estimat Average Glucose Hemoglobin A1c % Lactic Acid 2.4 H* Lactic Acid F/U @ 2Hr Lactic Acid F/U @ 4Hr Calcium Total Bilirubin AST ALT Alkaline Phosphatase C-Reactive Protein Total Protein Albumin Urine Color Urine Appearance Urine pH Ur Specific [place] Urine Protein Urine Glucose (UA) Urine Ketones Urine Blood Urine Nitrite Ur Leukocyte Esterase Urine RBC Urine WBC Ur Squamous Epith Cells Urine Bacteria Hyaline Casts Blood Type Antibody Screen Crossmatch 02/02/23 02/02/23 02/02/23 16:05 18:34 18:59 WBC RBC Hgb Hct MCV MCH MCHC RDW Plt Count MPV Immature Gran % (Auto) Neut % (Auto) Lymph % (Auto) Pepin % (Auto) Eos % (Auto) Baso % (Auto) Lymph # (Auto) Pepin # (Auto) Eos # (Auto) Baso # (Auto) Abs Immat Gran (auto) Absolute Neuts (auto) Absolute Nucleated RBC Nucleated RBC % (auto) ESR Sodium 128 L Potassium 4.0 Chloride 97 Carbon Dioxide 20 L Anion Gap 15 BUN 36 H Creatinine 2.09 H Estim Creat Clear Calc 39.8 Estimated GFR 33 POC Glucose Random Glucose 295 H Estimat Average Glucose Hemoglobin A1c % Lactic Acid Lactic Acid F/U @ 2Hr 2.3 H* Lactic Acid F/U @ 4Hr Calcium 9.1 Total Bilirubin 0.5 AST 38 H ALT 30 Alkaline Phosphatase 139 H C-Reactive Protein 13.97 H Total Protein 8.3 H Albumin 3.4 L Urine Color Urine Appearance Urine pH Ur Specific [place] Urine Protein Urine Glucose (UA) Urine Ketones Urine Blood Urine Nitrite Ur Leukocyte Esterase Urine RBC Urine WBC Ur Squamous Epith Cells Urine Bacteria Hyaline Casts Blood Type A Negative Antibody Screen NEGATIVE Crossmatch See Detail 02/02/23 02/02/23 02/03/23 20:25 21:22 01:42 WBC RBC Hgb Hct MCV MCH MCHC RDW Plt Count MPV Immature Gran % (Auto) Neut % (Auto) Lymph % (Auto) Pepin % (Auto) Eos % (Auto) Baso % (Auto) Lymph # (Auto) Pepin # (Auto) Eos # (Auto) Baso # (Auto) Abs Immat Gran (auto) Absolute Neuts (auto) Absolute Nucleated RBC Nucleated RBC % (auto) ESR Sodium Potassium Chloride Carbon Dioxide Anion Gap BUN Creatinine Estim Creat Clear Calc Estimated GFR POC Glucose 224 H Random Glucose Estimat Average Glucose Hemoglobin A1c % Lactic Acid Lactic Acid F/U @ 2Hr Lactic Acid F/U @ 4Hr 1.6 Calcium Total Bilirubin AST ALT Alkaline Phosphatase C-Reactive Protein Total Protein Albumin Urine Color Yellow Urine Appearance Cloudy Urine pH 5.5 Ur Specific [place] <= 1.005 Urine Protein 100 (2+) H Urine Glucose (UA) Negative Urine Ketones Negative Urine Blood Trace H Urine Nitrite Negative Ur Leukocyte Esterase Negative Urine RBC 0-2 Urine WBC 0-5 Ur Squamous Epith Cells 0-2 Urine Bacteria None Seen Hyaline Casts 3-5 Blood Type Antibody Screen Crossmatch 02/03/23 02/03/23 02/03/23 05:45 05:45 05:45 WBC 14.2 H RBC 2.30 L Hgb 7.2 L Hct 21.2 L MCV 92.2 MCH 31.3 MCHC 34.0 RDW 13.1 Plt Count 198 MPV 11.5 Immature Gran % (Auto) Neut % (Auto) Lymph % (Auto) Pepin % (Auto) Eos % (Auto) Baso % (Auto) Lymph # (Auto) Pepin # (Auto) Eos # (Auto) Baso # (Auto) Abs Immat Gran (auto) Absolute Neuts (auto) Absolute Nucleated RBC 0.000 Nucleated RBC % (auto) 0.0 ESR Sodium 135 Potassium 4.4 Chloride 106 Carbon Dioxide 18 L Anion Gap 15 BUN 33 H Creatinine 1.91 H Estim Creat Clear Calc 44.3 Estimated GFR 36 POC Glucose Random Glucose 302 H Estimat Average Glucose 206 Hemoglobin A1c % 8.8 Lactic Acid Lactic Acid F/U @ 2Hr Lactic Acid F/U @ 4Hr Calcium 8.4 D Total Bilirubin AST ALT Alkaline Phosphatase C-Reactive Protein Total Protein Albumin Urine Color Urine Appearance Urine pH Ur Specific [place] Urine Protein Urine Glucose (UA) Urine Ketones Urine Blood Urine Nitrite Ur Leukocyte Esterase Urine RBC Urine WBC Ur Squamous Epith Cells Urine Bacteria Hyaline Casts Blood Type Antibody Screen Crossmatch 02/03/23 02/03/23 02/03/23 07:44 10:54 15:55 WBC RBC Hgb Hct MCV MCH MCHC RDW Plt Count MPV Immature Gran % (Auto) Neut % (Auto) Lymph % (Auto) Pepin % (Auto) Eos % (Auto) Baso % (Auto) Lymph # (Auto) Pepin # (Auto) Eos # (Auto) Baso # (Auto) Abs Immat Gran (auto) Absolute Neuts (auto) Absolute Nucleated RBC Nucleated RBC % (auto) ESR Sodium Potassium Chloride Carbon Dioxide Anion Gap BUN Creatinine Estim Creat Clear Calc Estimated GFR POC Glucose 298 H 395 H* 443 H* Random Glucose Estimat Average Glucose Hemoglobin A1c % Lactic Acid Lactic Acid F/U @ 2Hr Lactic Acid F/U @ 4Hr Calcium Total Bilirubin AST ALT Alkaline Phosphatase C-Reactive Protein Total Protein Albumin Urine Color Urine Appearance Urine pH Ur Specific [place] Urine Protein Urine Glucose (UA) Urine Ketones Urine Blood Urine Nitrite Ur Leukocyte Esterase Urine RBC Urine WBC Ur Squamous Epith Cells Urine Bacteria Hyaline Casts Blood Type Antibody Screen Crossmatch 02/03/23 02/04/23 02/04/23 20:09 05:31 07:26 WBC RBC Hgb Hct MCV MCH MCHC RDW Plt Count MPV Immature Gran % (Auto) Neut % (Auto) Lymph % (Auto) Pepin % (Auto) Eos % (Auto) Baso % (Auto) Lymph # (Auto) Pepin # (Auto) Eos # (Auto) Baso # (Auto) Abs Immat Gran (auto) Absolute Neuts (auto) Absolute Nucleated RBC Nucleated RBC % (auto) ESR Sodium Potassium Chloride Carbon Dioxide Anion Gap BUN Creatinine 1.92 H Estim Creat Clear Calc 44.1 Estimated GFR 36 POC Glucose 434 H* 307 H Random Glucose Estimat Average Glucose Hemoglobin A1c % Lactic Acid Lactic Acid F/U @ 2Hr Lactic Acid F/U @ 4Hr Calcium Total Bilirubin AST ALT Alkaline Phosphatase C-Reactive Protein Total Protein Albumin Urine Color Urine Appearance Urine pH Ur Specific [place] Urine Protein Urine Glucose (UA) Urine Ketones Urine Blood Urine Nitrite Ur Leukocyte Esterase Urine RBC Urine WBC Ur Squamous Epith Cells Urine Bacteria Hyaline Casts Blood Type Antibody Screen Crossmatch 02/04/23 09:56 WBC RBC Hgb Hct MCV MCH MCHC RDW Plt Count MPV Immature Gran % (Auto) Neut % (Auto) Lymph % (Auto) Pepin % (Auto) Eos % (Auto) Baso % (Auto) Lymph # (Auto) Pepin # (Auto) Eos # (Auto) Baso # (Auto) Abs Immat Gran (auto) Absolute Neuts (auto) Absolute Nucleated RBC Nucleated RBC % (auto) ESR Sodium Potassium Chloride Carbon Dioxide Anion Gap BUN Creatinine Estim Creat Clear Calc Estimated GFR POC Glucose 312 H Random Glucose Estimat Average Glucose Hemoglobin A1c % Lactic Acid Lactic Acid F/U @ 2Hr Lactic Acid F/U @ 4Hr Calcium Total Bilirubin AST ALT Alkaline Phosphatase C-Reactive Protein Total Protein Albumin Urine Color Urine Appearance Urine pH Ur Specific [place] Urine Protein Urine Glucose (UA) Urine Ketones Urine Blood Urine Nitrite Ur Leukocyte Esterase Urine RBC Urine WBC Ur Squamous Epith Cells Urine Bacteria Hyaline Casts Blood Type Antibody Screen Crossmatch Airway Mallampati Class: I TM Dist: <=3cm Neck ROM: Full Denture: Upper and Lower Heart: ok Lungs: ok Assessment and Plan Assessment Anesthesia Assessment: Anesthesia Plan Discussed and Chart Reviewed Final Anesthetic Review Family History of Problems with Anesthesia: No History of Problems with Anesthesia: No NPO: Yes ASA Class: IV Final Preanesthetic Review: No Changes in Pt Med Stat, Meds/Allgs Chart Reviewed, Consent Obtained/Reviewed and Anes Risks/Benef Reviewed Patient Risk: High Procedure Risk: Low Anesthetic Plan Anesthetic Plan: MAC:, Regional Block (ankle block) and Agree w/ Assess. and Plan Disposition: Standard PACU
--- NOTE | 2023-02-04 11:06 | MHC.CM.PN ---
EMR reviewed and per MD rounds, pt is not medically cleared for D/C due to needing a wound debridement in the OR today and he may have an amputation later this week. CM will continue to follow.
--- NOTE | 2023-02-04 11:22 | HO.ANESEVENT ---
Anesthesia Event Note Date of Service: 02/04/23 Time Spent With Patient Time: Total time managing care of this patient today ____ minutes.
--- NOTE | 2023-02-04 11:26 | W.PM.OPN ---
Operative Note Operative Note Date of Service: 02/04/23 Narrative: Preop diagnosis: Gangrene of the 5th toe and plantar aspect of the left foot Postop diagnosis: The same Procedure: Amputation of the 5th toe at the mid metatarsal, with excisional debridement of the soft tissue of the plantar aspect and lateral aspect of the foot Surgeon: Doug Wahl MD medical support assistant: ARNOLD Zhang The patient is a 57-year-old male, diabetic, with gangrene of the 5th toe and the surrounding soft tissue. I had done excisional debridement bedside but there was more nonviable and gangrenous soft tissue surrounding the 5th toe which was ischemic and gangrenous as well. He understood the technique of amputation of this 5th toe at the metatarsal along with excision debridement of the plantar aspect of the left foot surrounding the toe. He did not want to proceed with the BKA at this time. He understood that there did not appear to be adequate soft tissue for closure of this debridement site and he would have an open wound. He was brought to the operating room. He was placed supine under monitored anesthesia care. An ankle block had been done by the anesthesiologist. The left foot and lower leg were prepped and draped in these was sterile fashion. A surgical time-out was done. The patient was receiving scheduled antibiotics. I made an incision on the dorsal aspect of the skin at the base of the 5th toe and extended this proximally and laterally. This was connected with the open wound. I then used electrocautery to divide through soft tissue. I used curved Monroy scissors to continue division of the soft tissues including tendons towards the mid part of the 5th metatarsal. This allowed me to define the mid meta tarsal. I used a bone cutter to divide this. Then continued division of the rest of the soft tissue attached to this amputated area. This included gangrenous tissue that I had to divide excised using Monroy scissors all the way to the plantar aspect surrounding this 5th toe. The specimen consisting of the 5th toe down to the metatarsal, along with venous soft tissue potassium this was sent as specimen. I continued to excise nonviable tissue using Monroy scissors until I reached what appeared to be will arise and nonischemic tissue. I used electrocautery to achieve hemostasis. I copiously irrigated. I used the rongeur to smooth then the of the 5th metatarsal. The open wound measured about 10 x 7 cm. Once hemostasis was achieved, I proceeded to apply a bone wax on the stump. I applied wet to dry dressings and wrapped the foot with thick dry fluffs, and Kerlix and Garry bandage. The procedure was then completed. He tolerated procedure well. The were no immediate complications. Estimated blood loss about 50 cc. He was transferred to the recovery room with stable vital signs.
--- NOTE | 2023-02-04 14:02 | PC.NURSE ---
this nurse tried to call the clinic to verify methadone dose for the patient for 6 times but the line was busy all times. tried to call with different phone number that patient gave but unsuccessful. Pharmacist notified. Overridden a pt own med (Odefsy) at 1300 in OCT due to time change (with meal) and new label not available
--- NOTE | 2023-02-04 16:48 | W.PM.IDCN ---
History of Present Illness Data of Consult Service Date: 02/04/23 Requesting physician: Sukh Soto Primary Care Provider: [facility] Reason for consult: left foot wound He has DM and PAD and chronic foot infections. He has left lateral foot infection He has HIV and is taking medication. Review of Systems Review of Systems: Yes all other systems are reviewed and are negative [facility] Past Medical History Medical History Cirrhosis COVID-19 vaccine administered Depression Diabetes Gangrene of left foot GERD (gastroesophageal reflux disease) Hepatitis History of hyperbaric oxygen therapy HIV (human immunodeficiency virus infection) Hx of drug dependence Hyperlipidemia Hypertension Osteomyelitis Toe ulcer Family History Family History Father Diabetes HTN (hypertension) Mother HTN (hypertension) Daughter No problems noted. Family history: reviewed and not pertinent Surgical History Surgical History H/O skin graft S/P angiogram of extremity Status post debridement Social History Social History Household Members: Family Housing: House Are you a primary wound care rn to a significant other at home: No Do you presently have visiting nurse or other home services: Yes Alcohol intake: never Patient Tobacco Use Status: Current everyday Tobacco user Tobacco use type: Cigarette Cigarette Packs Per Day: 0 Cigarettes Per Day: 10 Years Smoked: 35 e-Cigarette/Vaping Use: Never Used Second Hand Smoke Exposure: No Substance Use Type: Former Substance User and Heroin Advance Directives Date on File: 03/13/21 service: No Current occupational status: disabled Meds Allergies Allergy/AdvReac Type Severity Reaction Status Date / Time trazodone [TRAZODONE] Allergy Unknown UNKNOWN Verified 01/20/23 13:17 Active Medications: Current Medications Acetaminophen (Acetaminophen 325 Mg Tablet) 650 mg PO Q6H PRN PRN Reason: Pain, Mild (Pain Scale 1-3) Amlodipine Besylate (Amlodipine Besylate 5 Mg Tablet) 5 mg PO DAILY [facility]; Protocol Last Admin: 02/04/23 07:50 Dose: 5 mg Aspirin (Aspirin Enteric Coated 81 Mg Tablet.) 81 mg PO DAILY [facility] Last Admin: 02/04/23 08:37 Dose: Not Given Clopidogrel Bisulfate (Clopidogrel Bisulfate 75 Mg Tablet) 75 mg PO DAILY [facility] Last Admin: 02/04/23 09:24 Dose: Not Given Dextrose (Dextrose 50 % 25 Gm/50 Ml Syringe) 25 gm IVPUSH Q15M PRN; Protocol PRN Reason: per Hypoglycemia Standing Ord. Fentanyl (Fentanyl Citrate/Pf 100 Mcg/2 Ml Vial) 25 mcg IVPUSH Q5M PRN; Protocol PRN Reason: Pain, Moderate(Pain Scale 4-6) Glucose (Glucose Gel 15 Gm Gel..Gram.) 15 gm PO Q15M PRN; Protocol PRN Reason: per Hypoglycemia Standing Ord. Sodium Chloride (Ns) 1,000 mls @ 80 mls/hr IVCONT .[id number] [facility] Last Infusion: 02/04/23 12:48 Dose: 80 mls/hr Vancomycin HCl 1,000 mg/ (Sodium Chloride) 270 mls @ 270 mls/hr IV Q24H [facility] Last Infusion: 02/03/23 20:13 Dose: Infused Piperacillin Sod/Tazobactam (Sod 3.375 gm/ Sodium Chloride) 50 mls @ 100 mls/hr IV Q6H [facility] Last Infusion: 02/04/23 12:48 Dose: Infused Insulin Glargine (Insulin Glargine,Hum.Rec.Anlog 100 Unit/Ml 10 Ml Vial) 20 unit SUBCUT BEDTIME [facility] Last Admin: 02/03/23 20:45 Dose: 20 unit Insulin Human Lispro (Insulin Lispro 100 Unit/Ml 3 Ml Vial) 0 unit SUBCUT QIDACHS [facility]; Protocol Last Admin: 02/04/23 13:06 Dose: 6 unit Methadone HCl (Methadone Hcl 20 Mg/2 Ml Oral.Conc) 30 mg PO DAILY [facility] Metoprolol Succinate (Metoprolol Succinate Er 100 Mg Tab.Er.24h) 100 mg PO DAILY [facility]; Protocol Last Admin: 02/04/23 07:47 Dose: 100 mg Morphine Sulfate (Morphine Sulfate 4 Mg/Ml Cartridge) 4 mg IVPUSH Q4H PRN; Protocol PRN Reason: Pain, Severe (Pain Scale 7-10) Nicotine (Nicotine 21 Mg Patch.Td24) 21 mg TRANSDERMA DAILY [facility] Last Admin: 02/04/23 07:57 Dose: 21 mg Pt Own (Emtricitab- Rilpivir-Tenofo Ala [Odefsey] 200-25-25 Mg Tablet) 1 tab PO DAILY@1200 [facility] Last Admin: 02/04/23 13:08 Dose: 1 tab Oxycodone HCl (Oxycodone Hcl Immed Release 5 Mg Tablet) 5 mg PO Q4H PRN PRN Reason: Pain, Moderate(Pain Scale 4-6) Pharmacy Consult (Consult Rx Perform Med Rec) 1 each MISCELLANE ONCE PRN PRN Reason: Consult order Pharmacy Consult (Consult Rx Vancomycin Dosing) 1 each MISCELLANE DAILY PRN PRN Reason: Consult order Quetiapine Fumarate (Quetiapine Fumarate 100 Mg Tablet) 100 mg PO BEDTIME [facility] Last Admin: 02/03/23 19:40 Dose: 100 mg Sodium Chloride (0.9 % Sodium Chloride Flush 3 Ml Syringe) 3 ml IVFLUSH QSHIFT [facility] Last Admin: 02/04/23 07:54 Dose: 3 ml Vitamin D (Cholecalciferol (Vitamin D3) 25 Mcg Tablet) 50 mcg PO DAILY [facility] Last Admin: 02/04/23 07:50 Dose: 50 mcg Home Medications Medication Instructions Recorded Confirmed Last Taken Type aspirin 81 mg tablet,delayed 81 mg PO DAILY 08/08/20 02/02/23 02/02/23 History release blood sugar diagnostic #10 ea 08/08/20 10/16/20 Unknown History cholecalciferol (vitamin D3) 50 50 mcg PO DAILY 08/08/20 02/02/23 02/02/23 History mcg (2,000 unit) tablet dulaglutide 1.5 mg/0.5 mL 1.5 mg subcut FR 08/08/20 02/02/23 04/18/21 History subcutaneous pen injector furosemide 20 mg tablet 20 mg PO DAILY PRN swelling 08/08/20 02/02/23 Unknown History hydrochlorothiazide 25 mg tablet 25 mg PO DAILY 08/08/20 02/02/23 02/02/23 History insulin syringe-needle U-100 1 mL #10 ea 08/08/20 10/16/20 Unknown History 29 gauge x 1/2 metoprolol succinate 100 mg 100 mg PO DAILY 08/08/20 02/02/23 02/02/23 History tablet,extended release 24 hr quetiapine 100 mg tablet 100 mg PO BEDTIME 08/08/20 02/02/23 02/01/23 History lancets 33 gauge #100 ea 11/08/20 Unknown History metformin 500 mg tablet,extended 1,000 mg PO BID 11/08/20 02/02/23 02/02/23 History release 24 hr pen needle, diabetic 32 gauge x #50 ea 11/08/20 Unknown History methadone 10 mg/mL oral concentrate 30 mg PO DAILY 11/12/20 03/13/21 04/22/21 10:30 History emtricitabine 200 mg-rilpivirine 1 tab PO DAILY 12/05/20 02/02/23 02/02/23 History 25 mg-tenofovir alafenam 25 mg tablet (Odefsey) insulin aspart U-100 100 unit/mL 10 - 20 unit subcut TIDWM 12/05/20 02/02/23 02/02/23 History (3 mL) subcutaneous pen (Novolog FlexPen U-100 Insulin aspart) insulin degludec 100 unit/mL (3 30 unit subcut BEDTIME 04/22/21 02/02/23 02/01/23 History mL) subcutaneous pen (Tresiba FlexTouch U-100 insulin) amlodipine 5 mg tablet 5 mg PO DAILY 02/02/23 02/02/23 02/02/23 History nicotine 10 mg inhalation 1 inh inhalation Q4H PRN CRAvings 02/02/23 02/02/23 Unknown History cartridge (Nicotrol) nicotine 21 mg/24 hr daily 1 patch topical DAILY 02/02/23 02/02/23 Unknown History transdermal patch rosuvastatin 20 mg tablet 20 mg PO BEDTIME 02/02/23 02/02/23 02/01/23 History Physical Exam Vital Signs: Vital Signs: Last Vital Signs Temp 97.4 F 02/04/23 15:13 Pulse 88 02/04/23 15:13 Resp 20 02/04/23 15:13 BP 128/59 L 02/04/23 15:13 Pulse Ox 100 02/04/23 15:13 O2 Del Method Room Air 02/04/23 15:13 BMI result Body Mass Index 29.2 Const: General: cooperative HEENT: Head: Yes normal to inspection Face and sinus: Yes normal facial exam Mouth: Normal oral and palatal mucosa present Teeth and gingiva: dentition normal Eyes: General: appearance normal, both eyes and all related structures Pupils: Equal, round and reactive pupils present Resp: Effort & Inspection: normal respiratory effort Cardio: Rate: regular rate Rhythm: regular rhythm GI: Palpation (GI): Soft to palpation and nontender : General: Yes no CVA tenderness Back/Spine/Pelvis: Back: no CVA tenderness Skin: General skin exam: no rashes or lesions noted Neuro: General: moves all extremities Cranial nerves: Yes Equal, round and reactive pupils present Extrem: Other: left foot wound midway through foot General: Yes normal to inspection Psych: Appearance: grossly normal Results Labs 02/03/23 05:45 02/04/23 05:31 Labs: BMP 02/04/23 05:31 Creatinine 1.92 H Microbiology Microbiology Results: Microbiology 02/02/23 18:35 Blood - Venous Blood Culture - Preliminary No growth after 24 hours. 02/02/23 16:04 Blood - Venous Blood Culture - Preliminary No growth after 24 hours. Assessment and Plan (1) Gangrene of left foot: Status: Acute He has much tissue compromised He may have multiple organisms found,gram negative,gram positive,anerobe (2) Cellulitis: Status: Acute Plan Continue broad spectrum antibiotics Would also recommend surgical therapy as needed per Dr Billings Continue HIV medicationBryan Time Spent With Patient Time: Total time managing care of this patient today ____ minutes.
[2023-02-04] MEDS: Insulin Glargine,Hum.rec.anlog 100 UNIT/ML 10 ML VIAL 20 UNIT SUBCUT (20:32)
--- NOTE | 2023-02-04 21:15 | PM.EVENT ---
Event Note Date of Service: 02/04/23 Event Note: d/w medical team Full consult to follow Pt with Mild COLT on CKD 3 Baseline around 1.3 in 2020 Last month = 2.1 PVD for angio Suggest IVF with NS 1 ml/kg/ hr pre and post - Pt high risk for BELLA Avoid Nephrotoxins THx Time Spent With Patient Time: Total time managing care of this patient today ____ minutes.
[2023-02-05] VITALS (12 sets, daily range): BP systolic 132–155; BP diastolic 61–73; PULSE 73–84; RESP 16–20; TEMP 36.1–36.6; O2SAT 98–100
[2023-02-05] MEDS: Piperacillin Sodium/Tazobactam 3.375 GM in 0.9 % Sodium Chloride 50 ML IV ×4 (01:13→17:50)
[2023-02-05 06:42] LABS: Mean Corpuscular HGB Conc 34.3 g/dl (31.0-36.0); Mean Corpuscular Hemoglobin 30.8 pg (27.0-33.0); Mean Corpuscular Volume 89.9 fL (80.0-98.0); Mean Platelet Volume 11.3 fL (9.4-12.4); Platelet Count 184 X10*3/uL (160-400); Red Blood Count 2.27 X10*6/uL (4.60-5.80); Red Cell Distribution Width 13.2 % (11.0-16.0); White Blood Count 10.5 X10*3/uL (4.8-10.8)
[2023-02-05 07:10] LABS: Anion Gap 13 (12-20); Blood Urea Nitrogen 24 mg/dL (9-16); Calcium 8.8 mg/dL (8.4-10.2); Carbon Dioxide 20 mmol/L (22-29); Chloride 112 mmol/L (96-108); Creatinine Clr Calc Pharmacy 53.5; Estimated Glomerular Filt Rate 45; Glucose Random 297 mg/dL (60-115); Potassium 3.6 mmol/L (3.3-5.1); Sodium 141 mmol/L (135-145)
[2023-02-05 07:27] LABS: Hematocrit 20.4 % (42.0-52.0)
[2023-02-05] MEDS: Insulin Lispro 100 UNIT/ML 3 ML VIAL SUBCUT ×4 (07:37→20:24)
[2023-02-05] MEDS: Clopidogrel Bisulfate 75 MG TABLET PO (07:38)
[2023-02-05] MEDS: Cholecalciferol (Vitamin D3) 25 MCG TABLET 50 MCG PO (07:38)
[2023-02-05] MEDS: Metoprolol Succinate ER 100 MG TAB.ER.24H PO (07:38)
[2023-02-05] MEDS: Nicotine 21 MG PATCH.TD24 TRANSDERMA (07:38)
[2023-02-05] MEDS: Aspirin Enteric Coated 81 MG TABLET.DR PO (07:39)
[2023-02-05] MEDS: amLODIPine Besylate 5 MG TABLET PO (07:39)
--- NOTE | 2023-02-05 08:04 | PM.PNGS ---
Subjective Subjective Date of Service: 02/05/23 Interval history: no complaints denies signficant pain no events reported overnight Physical Exam Vital Signs: Vital Signs: Last Vital Signs Temp 97.7 F 02/05/23 07:21 Pulse 84 02/05/23 07:21 Resp 20 02/05/23 07:21 BP 144/67 H 02/05/23 07:21 Pulse Ox 99 02/05/23 07:21 O2 Del Method Room Air 02/05/23 07:21 BMI result Body Mass Index 29.2 Const: General: comfortable and no acute distress Resp: Effort & Inspection: normal respiratory effort Cardio: Rate: regular rate GI: Palpation (GI): Soft to palpation Extrem: Other: dressings changed - open wound left foot clean, no obvious gangrenous tissue, 4th toe appears darker on dorsal aspect; no cellulitis Objective Data Active Medications Acetaminophen (Acetaminophen 325 Mg Tablet) 650 mg PO Q6H PRN PRN Reason: Pain, Mild (Pain Scale 1-3) Amlodipine Besylate (Amlodipine Besylate 5 Mg Tablet) 5 mg PO DAILY [facility]; Protocol Last Admin: 02/05/23 07:39 Dose: 5 mg Documented By: ALINA Aspirin (Aspirin Enteric Coated 81 Mg Tablet.) 81 mg PO DAILY [facility] Last Admin: 02/05/23 07:39 Dose: 81 mg Documented By: ALINA Clopidogrel Bisulfate (Clopidogrel Bisulfate 75 Mg Tablet) 75 mg PO DAILY [facility] Last Admin: 02/05/23 07:38 Dose: 75 mg Documented By: ALINA Dextrose (Dextrose 50 % 25 Gm/50 Ml Syringe) 25 gm IVPUSH Q15M PRN; Protocol PRN Reason: per Hypoglycemia Standing Ord. Fentanyl (Fentanyl Citrate/Pf 100 Mcg/2 Ml Vial) 25 mcg IVPUSH Q5M PRN; Protocol PRN Reason: Pain, Moderate(Pain Scale 4-6) Glucose (Glucose Gel 15 Gm Gel..Gram.) 15 gm PO Q15M PRN; Protocol PRN Reason: per Hypoglycemia Standing Ord. Vancomycin HCl 1,000 mg/ (Sodium Chloride) 270 mls @ 270 mls/hr IV Q24H [facility] Last Infusion: 02/04/23 22:00 Dose: 0 mls/hr Documented By: TREASURE Piperacillin Sod/Tazobactam (Sod 3.375 gm/ Sodium Chloride) 50 mls @ 100 mls/hr IV Q6H [facility] Last Infusion: 02/05/23 07:24 Dose: 100 mls/hr Documented By: ALINA Insulin Glargine (Insulin Glargine,Hum.Rec.Anlog 100 Unit/Ml 10 Ml Vial) 20 unit SUBCUT BEDTIME [facility] Last Admin: 02/04/23 20:32 Dose: 20 unit Documented By: ROBERT Insulin Human Lispro (Insulin Lispro 100 Unit/Ml 3 Ml Vial) 0 unit SUBCUT QIDACHS [facility]; Protocol Last Admin: 02/05/23 07:37 Dose: 6 unit Documented By: ALINA Methadone HCl (Methadone Hcl 20 Mg/2 Ml Oral.Conc) 30 mg PO DAILY [facility] Metoprolol Succinate (Metoprolol Succinate Er 100 Mg Tab.Er.24h) 100 mg PO DAILY [facility]; Protocol Last Admin: 02/05/23 07:38 Dose: 100 mg Documented By: ALINA Morphine Sulfate (Morphine Sulfate 4 Mg/Ml Cartridge) 4 mg IVPUSH Q4H PRN; Protocol PRN Reason: Pain, Severe (Pain Scale 7-10) Nicotine (Nicotine 21 Mg Patch.Td24) 21 mg TRANSDERMA DAILY [facility] Last Admin: 02/05/23 07:38 Dose: 21 mg Documented By: ALINA Oxycodone HCl (Oxycodone Hcl Immed Release 5 Mg Tablet) 5 mg PO Q4H PRN PRN Reason: Pain, Moderate(Pain Scale 4-6) Pharmacy Consult (Consult Rx Perform Med Rec) 1 each MISCELLANE ONCE PRN PRN Reason: Consult order Pharmacy Consult (Consult Rx Vancomycin Dosing) 1 each MISCELLANE DAILY PRN PRN Reason: Consult order Quetiapine Fumarate (Quetiapine Fumarate 100 Mg Tablet) 100 mg PO BEDTIME [facility] Last Admin: 02/04/23 20:32 Dose: 100 mg Documented By: ROBERT Sodium Chloride (0.9 % Sodium Chloride Flush 3 Ml Syringe) 3 ml IVFLUSH QSHIFT [facility] Last Admin: 02/05/23 07:39 Dose: 3 ml Documented By: ALINA Vitamin D (Cholecalciferol (Vitamin D3) 25 Mcg Tablet) 50 mcg PO DAILY [facility] Last Admin: 02/05/23 07:38 Dose: 50 mcg Documented By: ALINA Labs 02/05/23 06:00 02/05/23 06:00 Labs: Laboratory Results - last 24 hr 02/04/23 02/04/23 02/04/23 09:56 11:38 12:14 MCV MCH MCHC RDW Plt Count MPV Absolute Nucleated RBC Nucleated RBC % (auto) Anion Gap Estim Creat Clear Calc Estimated GFR POC Glucose 312 H 278 H 279 H Random Glucose Calcium Random Vancomycin 02/04/23 02/04/23 02/04/23 16:06 17:39 19:46 MCV MCH MCHC RDW Plt Count MPV Absolute Nucleated RBC Nucleated RBC % (auto) Anion Gap Estim Creat Clear Calc Estimated GFR POC Glucose 334 H 379 H* Random Glucose Calcium Random Vancomycin 12.9 L 02/05/23 02/05/23 02/05/23 06:00 06:00 07:23 MCV 89.9 MCH 30.8 MCHC 34.3 RDW 13.2 Plt Count 184 MPV 11.3 Absolute Nucleated RBC 0.000 Nucleated RBC % (auto) 0.0 Anion Gap 13 Estim Creat Clear Calc 53.5 Estimated GFR 45 POC Glucose 298 H Random Glucose 297 H Calcium 8.8 Random Vancomycin Microbiology Microbiology Results: Microbiology 02/02/23 18:35 Blood Culture - Preliminary Blood - Venous No growth after 48 hours. 02/02/23 16:04 Blood Culture - Preliminary Blood - Venous No growth after 48 hours. Procedures Date of Service Date of Service: 02/05/23 Progress Note: A&P Assessment and plan (1) Gangrene of left foot: Status: Acute Assessment and Plan: s/p amputation of 5th toe at midmetatarsal level, wtih extensive debridement of soft tissue has large open wound wet to dry dressings placed - wound looks clean 4th toe seems more discolored at dorsal area he again stated he would like to save his foot as much as possible he understands the 4th toe may not be viable either continue good wound care, IV abx Time Spent With Patient Time: Total time managing care of this patient today ____ minutes. Quality Stroke Does the patient have a stroke diagnosis?: No VTE Prior VTE?: No VTE Risk Level:: Medical - moderate - high VTE Device Contraindication: N/A - Device Ordered VTE Drug Contraindication: N/A - Med Ordered
--- NOTE | 2023-02-05 08:35 | HE.PHANOTE ---
Methadone Maintenance Clinic Verification Form : [facility] . Methadone Dose 30 mg .
--- NOTE | 2023-02-05 09:17 | HO.PM.IMPN ---
Subjective Subjective Date of Service: 02/05/23 Interval History: follow-up on diabetic foot infection, osteomyelitis no new issues, s/p debridment in OR yesterday, H/H signficantly low Cr better Physical Exam Vital Signs: Vital Signs: Last Vital Signs Temp 97.7 F 02/05/23 07:21 Pulse 84 02/05/23 07:21 Resp 20 02/05/23 07:21 BP 144/67 H 02/05/23 07:21 Pulse Ox 99 02/05/23 07:21 O2 Del Method Room Air 02/05/23 07:21 BMI result Body Mass Index 29.2 Objective Data Active Medications Acetaminophen (Acetaminophen 325 Mg Tablet) 650 mg PO Q6H PRN PRN Reason: Pain, Mild (Pain Scale 1-3) Amlodipine Besylate (Amlodipine Besylate 5 Mg Tablet) 5 mg PO DAILY [facility]; Protocol Last Admin: 02/05/23 07:39 Dose: 5 mg Documented By: ALINA Aspirin (Aspirin Enteric Coated 81 Mg Tablet.) 81 mg PO DAILY [facility] Last Admin: 02/05/23 07:39 Dose: 81 mg Documented By: ALINA Clopidogrel Bisulfate (Clopidogrel Bisulfate 75 Mg Tablet) 75 mg PO DAILY [facility] Last Admin: 02/05/23 07:38 Dose: 75 mg Documented By: ALINA Dextrose (Dextrose 50 % 25 Gm/50 Ml Syringe) 25 gm IVPUSH Q15M PRN; Protocol PRN Reason: per Hypoglycemia Standing Ord. Fentanyl (Fentanyl Citrate/Pf 100 Mcg/2 Ml Vial) 25 mcg IVPUSH Q5M PRN; Protocol PRN Reason: Pain, Moderate(Pain Scale 4-6) Glucose (Glucose Gel 15 Gm Gel..Gram.) 15 gm PO Q15M PRN; Protocol PRN Reason: per Hypoglycemia Standing Ord. Vancomycin HCl 1,000 mg/ (Sodium Chloride) 270 mls @ 270 mls/hr IV Q24H [facility] Last Infusion: 02/04/23 22:00 Dose: 0 mls/hr Documented By: TREASURE Piperacillin Sod/Tazobactam (Sod 3.375 gm/ Sodium Chloride) 50 mls @ 100 mls/hr IV Q6H [facility] Last Infusion: 02/05/23 07:24 Dose: 100 mls/hr Documented By: ALINA Insulin Glargine (Insulin Glargine,Hum.Rec.Anlog 100 Unit/Ml 10 Ml Vial) 20 unit SUBCUT BEDTIME [facility] Last Admin: 02/04/23 20:32 Dose: 20 unit Documented By: ROBERT Insulin Human Lispro (Insulin Lispro 100 Unit/Ml 3 Ml Vial) 0 unit SUBCUT QIDACHS [facility]; Protocol Last Admin: 02/05/23 07:37 Dose: 6 unit Documented By: ALINA Methadone HCl (Methadone Hcl 20 Mg/2 Ml Oral.Conc) 30 mg PO DAILY [facility] Metoprolol Succinate (Metoprolol Succinate Er 100 Mg Tab.Er.24h) 100 mg PO DAILY [facility]; Protocol Last Admin: 02/05/23 07:38 Dose: 100 mg Documented By: ALINA Morphine Sulfate (Morphine Sulfate 4 Mg/Ml Cartridge) 4 mg IVPUSH Q4H PR[facility]; Protocol PRN Reason: Pain, Severe (Pain Scale 7-10) Nicotine (Nicotine 21 Mg Patch.Td24) 21 mg TRANSDERMA DAILY [facility] Last Admin: 02/05/23 07:38 Dose: 21 mg Documented By: ALINA Oxycodone HCl (Oxycodone Hcl Immed Release 5 Mg Tablet) 5 mg PO Q4H PRN PRN Reason: Pain, Moderate(Pain Scale 4-6) Pharmacy Consult (Consult Rx Perform Med Rec) 1 each MISCELLANE ONCE PRN PRN Reason: Consult order Pharmacy Consult (Consult Rx Vancomycin Dosing) 1 each MISCELLANE DAILY PRN PRN Reason: Consult order Quetiapine Fumarate (Quetiapine Fumarate 100 Mg Tablet) 100 mg PO BEDTIME [facility] Last Admin: 02/04/23 20:32 Dose: 100 mg Documented By: ROBERT Sodium Chloride (0.9 % Sodium Chloride Flush 3 Ml Syringe) 3 ml IVFLUSH QSHIFT [facility] Last Admin: 02/05/23 07:39 Dose: 3 ml Documented By: ALINA Vitamin D (Cholecalciferol (Vitamin D3) 25 Mcg Tablet) 50 mcg PO DAILY [facility] Last Admin: 02/05/23 07:38 Dose: 50 mcg Documented By: ALINA Labs 02/05/23 06:00 02/05/23 06:00 Labs: Laboratory Results - last 24 hr 02/04/23 02/04/23 02/04/23 09:56 11:38 12:14 MCV MCH MCHC RDW Plt Count MPV Absolute Nucleated RBC Nucleated RBC % (auto) Anion Gap Estim Creat Clear Calc Estimated GFR POC Glucose 312 H 278 H 279 H Random Glucose Calcium Random Vancomycin 02/04/23 02/04/23 02/04/23 16:06 17:39 19:46 MCV MCH MCHC RDW Plt Count MPV Absolute Nucleated RBC Nucleated RBC % (auto) Anion Gap Estim Creat Clear Calc Estimated GFR POC Glucose 334 H 379 H* Random Glucose Calcium Random Vancomycin 12.9 L 02/05/23 02/05/23 02/05/23 06:00 06:00 07:23 MCV 89.9 MCH 30.8 MCHC 34.3 RDW 13.2 Plt Count 184 MPV 11.3 Absolute Nucleated RBC 0.000 Nucleated RBC % (auto) 0.0 Anion Gap 13 Estim Creat Clear Calc 53.5 Estimated GFR 45 POC Glucose 298 H Random Glucose 297 H Calcium 8.8 Random Vancomycin Microbiology Microbiology Results: Microbiology 02/02/23 18:35 Blood Culture - Preliminary Blood - Venous No growth after 48 hours. 02/02/23 16:04 Blood Culture - Preliminary Blood - Venous No growth after 48 hours. Assessment and Plan (1) Cellulitis: Status: Acute (2) Sepsis: Status: Acute Plan 57-year-old male with history of diabetes, osteomyelitis who presents with a nonhealing left foot wound/5th toe . Sepsis secondary to nonhealing wound,/diabetic foot ulcer-suspected acute osteomyelitis, high ESR and CRP--see pic --s/p bedside debridment by Dr. Wahl and OR debridment 02/04 and probable will need definitive ampuation -continue IV Abx (Vanco and Zosyn since 02/02), cultures negative thus far PAD Continue home medications. Vascular following COLT: on CKD, improving, continue IVF and monitor, Cr better 1.9 to 1.58 today, Nephrology following DM--SSI, add Lantus HIV:?continue home medication Hypertension-- hold hydrochlorothiazide and Lasix in the setting of COLT Chronic anemia: s/p 1 unit RBC 02/02, H/H worse, transfuse 2 units today HypOnatremia: Mild hypOnatremia possibly related to decreased p.o. intake, resolved DVT prophylaxis : Chemoprophylaxis on hold because of anemia. compression device need for inpt: IV Abx for sepsis, likely acute osteomylitis and may need further surgical intervention Time Spent With Patient Time: Total time managing care of this patient today ____ minutes. Quality Stroke Does the patient have a stroke diagnosis?: No VTE Prior VTE?: No VTE Risk Level:: Medical - moderate - high VTE Device Contraindication: N/A - Device Ordered VTE Drug Contraindication: N/A - Med Ordered
[2023-02-05] MEDS: methADONE HCl 20 MG/2 ML ORAL.CONC 30 MG PO (09:19)
--- NOTE | 2023-02-05 14:16 | HO.VASCPN ---
Subjective Subjective Date of Service: 02/05/23 Patient reports: no new complaints and feels better Interval history: Pleasant 57-year-old gentleman for vascular follow-up. He had undergone debridement and left 5th toe amputation by General surgery yesterday. He reports he is doing fairly well with that. Pain well controlled. No events overnight. Now for vascular follow-up. Physical Exam Vital Signs: Vital Signs: Last Vital Signs Temp 97.3 F 02/05/23 13:45 Pulse 74 02/05/23 13:45 Resp 20 02/05/23 13:45 BP 133/72 02/05/23 13:45 Pulse Ox 99 02/05/23 10:54 O2 Del Method Room Air 02/05/23 10:54 BMI result Body Mass Index 29.2 Const: General: cooperative, healthy appearing and no acute distress Orientation/consciousness: oriented to person, oriented to place and oriented to time HEENT: Head: Yes normal to inspection Neck: Carotids: no bruits Chest: Chest palpation & inspection: normal inspection of the chest Resp: Effort & Inspection: normal respiratory effort and able to speak in complete sentences Auscultation: clear to auscultation bilaterally Cardio: Other: Bilateral DP signals Rate: regular rate Heart sounds: S1 normal heart sound present and S2 normal heart sound present GI: Inspection: Yes normal to inspection Skin: Other: Left foot dressing clean dry intact General skin exam: no rashes or lesions noted Wounds: no wounds Neuro: General: oriented to person, oriented to place, oriented to time and CN's II-XI intact bilaterally Extrem: General: Yes normal to inspection, Yes full ROM and Yes no clubbing, cyanosis or edema Psych: Appearance: grossly normal and well kempt Speech and movement: Normal speech and movement present Affect: normal affect Progress Note: A&P Assessment and plan (1) PAD (peripheral artery disease): Status: Acute Assessment and Plan: In short patient has nonhealing left foot ulcer. He does have an element of peripheral vascular disease. He is currently being transfused 2 units of packed red blood cells. Will await him stabilizing. Did discuss the case with Nephrology and who feels that he is back down to baseline creatinine. We will continue to monitor this patient with you and anticipate angiogram on Thursday if patient is stable. Thank you for allowing us to participate in his care. Time Spent With Patient Time: Total time managing care of this patient today ____ minutes. Procedures Date of Service Date of Service: 02/05/23 Quality Stroke Does the patient have a stroke diagnosis?: No VTE Prior VTE?: No VTE Risk Level:: Medical - moderate - high VTE Device Contraindication: N/A - Device Ordered VTE Drug Contraindication: N/A - Med Ordered
--- NOTE | 2023-02-05 14:56 | HO.POSTANES ---
Post Anesthesia Evaluation Post Anesthesia Evaluation Date of Service: 02/05/23 Vital Signs: Vital Signs Temp Pulse Resp BP Pulse Ox O2 Del Method 02/05/23 13:45 97.3 F 74 20 133/72 02/05/23 12:51 97.5 F 76 20 135/62 02/05/23 12:35 97.5 F 77 20 144/61 H 02/05/23 12:21 97.5 F 77 20 144/62 H 02/05/23 10:54 97.7 F 73 20 135/63 99 Room Air 02/05/23 10:49 97.7 F 73 20 135/63 02/05/23 10:31 97.8 F 76 20 137/62 02/05/23 07:21 97.7 F 84 20 144/67 H 99 Room Air 02/05/23 03:21 97.0 F 83 20 134/64 99 Room Air Anesthesia: Monitored Mental Status: Awake Pain Control: Satisfactory Nausea/Vomiting: None Hydration: Adequate Anesthesia-Related Issues: No Anes. Related Issues
[2023-02-05 17:36] LABS: Vancomycin Random 12.8 mcg/mL (15-20)
--- NOTE | 2023-02-05 17:49 | HE.PHANOTE ---
RE: vanco Trough on 02/05 came back at 12.8; renal function improved. Increased dose to 1250mg Q24 with predicted AUC of 498mg/L, trough of 15. Next level to be drawn after 2 doses 02/07 @1700
[2023-02-05] MEDS: Insulin Glargine,Hum.rec.anlog 100 UNIT/ML 10 ML VIAL 20 UNIT SUBCUT (20:23)
[2023-02-06] MEDS: Piperacillin Sodium/Tazobactam 3.375 GM in 0.9 % Sodium Chloride 50 ML IV ×4 (00:05→17:20)
[2023-02-06 03:21] VITALS: BP 149/68; PULSE 73; RESP 20; TEMP 36.7; O2SAT 100
[2023-02-06 05:42] LABS: Hematocrit 26.4 % (42.0-52.0); Mean Corpuscular HGB Conc 34.1 g/dl (31.0-36.0); Mean Corpuscular Hemoglobin 30.5 pg (27.0-33.0); Mean Corpuscular Volume 89.5 fL (80.0-98.0); Mean Platelet Volume 10.8 fL (9.4-12.4); Platelet Count 171 X10*3/uL (160-400); Red Blood Count 2.95 X10*6/uL (4.60-5.80); Red Cell Distribution Width 13.1 % (11.0-16.0); White Blood Count 9.4 X10*3/uL (4.8-10.8)
[2023-02-06 06:02] LABS: Creatinine Clr Calc Pharmacy 66.1; Estimated Glomerular Filt Rate 58
[2023-02-06 07:19] VITALS: BP 149/67; PULSE 76; RESP 20; TEMP 36.3; O2SAT 97
--- NOTE | 2023-02-06 07:52 | PM.PNGS ---
Subjective Subjective Date of Service: 02/09/23 Interval history: no complaints no events reported Physical Exam Vital Signs: Vital Signs: Last Vital Signs Temp 97.4 F 02/06/23 07:19 Pulse 76 02/06/23 07:19 Resp 20 02/06/23 07:19 BP 149/67 H 02/06/23 07:19 Pulse Ox 97 02/06/23 07:19 O2 Del Method Room Air 02/06/23 07:19 BMI result Body Mass Index 29.2 Const: General: comfortable and no acute distress Resp: Effort & Inspection: normal respiratory effort GI: Palpation (GI): Soft to palpation Extrem: Other: left foot open wound clean, 4th toe with dark discoloration on dorsal aspect, no pus, most of wound surface granulating, large tissue defect Objective Data Active Medications Acetaminophen (Acetaminophen 325 Mg Tablet) 650 mg PO Q6H PRN PRN Reason: Pain, Mild (Pain Scale 1-3) Amlodipine Besylate (Amlodipine Besylate 5 Mg Tablet) 5 mg PO DAILY [facility]; Protocol Last Admin: 02/05/23 07:39 Dose: 5 mg Documented By: ALINA Aspirin (Aspirin Enteric Coated 81 Mg Tablet.) 81 mg PO DAILY [facility] Last Admin: 02/05/23 07:39 Dose: 81 mg Documented By: ALINA Clopidogrel Bisulfate (Clopidogrel Bisulfate 75 Mg Tablet) 75 mg PO DAILY [facility] Last Admin: 02/05/23 07:38 Dose: 75 mg Documented By: ALINA Dextrose (Dextrose 50 % 25 Gm/50 Ml Syringe) 25 gm IVPUSH Q15M PRN; Protocol PRN Reason: per Hypoglycemia Standing Ord. Fentanyl (Fentanyl Citrate/Pf 100 Mcg/2 Ml Vial) 25 mcg IVPUSH Q5M PRN; Protocol PRN Reason: Pain, Moderate(Pain Scale 4-6) Glucose (Glucose Gel 15 Gm Gel..Gram.) 15 gm PO Q15M PRN; Protocol PRN Reason: per Hypoglycemia Standing Ord. Piperacillin Sod/Tazobactam (Sod 3.375 gm/ Sodium Chloride) 50 mls @ 100 mls/hr IV Q6H [facility] Last Infusion: 02/06/23 07:04 Dose: 0 mls/hr Documented By: CINDY Vancomycin HCl 1,250 mg/ (Sodium Chloride) 250 mls @ 166.667 mls/hr IV Q24H [facility] Last Infusion: 02/05/23 20:02 Dose: 0 mls/hr Documented By: CHARU Insulin Glargine (Insulin Glargine,Hum.Rec.Anlog 100 Unit/Ml 10 Ml Vial) 20 unit SUBCUT BEDTIME [facility] Last Admin: 02/05/23 20:23 Dose: 20 unit Documented By: CHARU Insulin Human Lispro (Insulin Lispro 100 Unit/Ml 3 Ml Vial) 0 unit SUBCUT QIDACHS [facility]; Protocol Last Admin: 02/05/23 20:24 Dose: 10 unit Documented By: CHARU Methadone HCl (Methadone Hcl 20 Mg/2 Ml Oral.Conc) 30 mg PO DAILY [facility] Last Admin: 02/05/23 09:23 Dose: 30 mg Documented By: ALINA Metoprolol Succinate (Metoprolol Succinate Er 100 Mg Tab.Er.24h) 100 mg PO DAILY [facility]; Protocol Last Admin: 02/05/23 07:38 Dose: 100 mg Documented By: ALINA Morphine Sulfate (Morphine Sulfate 4 Mg/Ml Cartridge) 4 mg IVPUSH Q4H PRN; Protocol PRN Reason: Pain, Severe (Pain Scale 7-10) Nicotine (Nicotine 21 Mg Patch.Td24) 21 mg TRANSDERMA DAILY [facility] Last Admin: 02/05/23 07:38 Dose: 21 mg Documented By: ALINA Oxycodone HCl (Oxycodone Hcl Immed Release 5 Mg Tablet) 5 mg PO Q4H PRN PRN Reason: Pain, Moderate(Pain Scale 4-6) Pharmacy Consult (Consult Rx Perform Med Rec) 1 each MISCELLANE ONCE PRN PRN Reason: Consult order Pharmacy Consult (Consult Rx Vancomycin Dosing) 1 each MISCELLANE DAILY PRN PRN Reason: Consult order Quetiapine Fumarate (Quetiapine Fumarate 100 Mg Tablet) 100 mg PO BEDTIME [facility] Last Admin: 02/05/23 19:20 Dose: 100 mg Documented By: CHARU Sodium Chloride (0.9 % Sodium Chloride Flush 3 Ml Syringe) 3 ml IVFLUSH QSHIFT [facility] Last Admin: 02/06/23 00:06 Dose: 3 ml Documented By: SARAH Vitamin D (Cholecalciferol (Vitamin D3) 25 Mcg Tablet) 50 mcg PO DAILY [facility] Last Admin: 02/05/23 07:38 Dose: 50 mcg Documented By: ALINA Labs 02/06/23 05:19 02/06/23 05:19 Labs: Laboratory Results - last 24 hr 02/02/23 02/05/23 02/05/23 18:59 06:00 09:01 MCV MCH MCHC RDW Plt Count MPV Absolute Nucleated RBC Nucleated RBC % (auto) Smear Path Review SEE NOTE Estim Creat Clear Calc Estimated GFR POC Glucose U Random Total Protein 50 H Ur Random Sodium 132.0 Urine Creatinine 32.84 Random Vancomycin Blood Type A Negative Antibody Screen NEGATIVE Crossmatch See Detail 02/05/23 02/05/23 02/05/23 11:05 16:04 17:16 MCV MCH MCHC RDW Plt Count MPV Absolute Nucleated RBC Nucleated RBC % (auto) Smear Path Review Estim Creat Clear Calc Estimated GFR POC Glucose 369 H* 365 H* U Random Total Protein Ur Random Sodium Urine Creatinine Random Vancomycin 12.8 L Blood Type Antibody Screen Crossmatch 02/05/23 02/06/23 02/06/23 19:49 05:19 05:19 MCV 89.5 MCH 30.5 MCHC 34.1 RDW 13.1 Plt Count 171 MPV 10.8 Absolute Nucleated RBC 0.000 Nucleated RBC % (auto) 0.0 Smear Path Review Estim Creat Clear Calc 66.1 Estimated GFR 58 POC Glucose 381 H* U Random Total Protein Ur Random Sodium Urine Creatinine Random Vancomycin Blood Type Antibody Screen Crossmatch 02/06/23 07:20 MCV MCH MCHC RDW Plt Count MPV Absolute Nucleated RBC Nucleated RBC % (auto) Smear Path Review Estim Creat Clear Calc Estimated GFR POC Glucose 228 H U Random Total Protein Ur Random Sodium Urine Creatinine Random Vancomycin Blood Type Antibody Screen Crossmatch Procedures Date of Service Date of Service: 02/09/23 Progress Note: A&P Assessment and plan (1) Gangrene of left foot: Status: Acute Assessment and Plan: S/P amputation of 5th toe all the way to midmetatarsal, with extensive debridement wound looks clean discoloration of 4th toe noted, but still mostly viable dressings changed wet to dry applied continue daily wound care if he gets discharged over the weekend, I can see him next week to reeval for possible more proximal amputation he stated preference for avoiding further amputation for now if possible Time Spent With Patient Time: Total time managing care of this patient today ____ minutes. Quality Stroke Does the patient have a stroke diagnosis?: No VTE Prior VTE?: No VTE Risk Level:: Medical - moderate - high VTE Device Contraindication: N/A - Device Ordered VTE Drug Contraindication: N/A - Med Ordered
--- NOTE | 2023-02-06 07:53 | HE.PHANOTE ---
Vancomycin Dosing Renal function is still improving. Current regimen is still predicted to be therapeutic. Next level 02/07 @ 6192. Tara Pope PharmD
[2023-02-06] MEDS: Aspirin Enteric Coated 81 MG TABLET.DR PO (07:54)
[2023-02-06] MEDS: methADONE HCl 20 MG/2 ML ORAL.CONC 30 MG PO (07:55)
[2023-02-06] MEDS: Insulin Lispro 100 UNIT/ML 3 ML VIAL SUBCUT ×4 (07:55→19:32)
[2023-02-06] MEDS: Cholecalciferol (Vitamin D3) 25 MCG TABLET 50 MCG PO (07:55)
[2023-02-06] MEDS: Metoprolol Succinate ER 100 MG TAB.ER.24H PO (07:55)
[2023-02-06] MEDS: amLODIPine Besylate 5 MG TABLET PO (07:55)
[2023-02-06] MEDS: Nicotine 21 MG PATCH.TD24 TRANSDERMA (07:55)
[2023-02-06] MEDS: Clopidogrel Bisulfate 75 MG TABLET PO (07:55)
--- NOTE | 2023-02-06 09:06 | HO.PM.IMPN ---
Subjective Subjective Date of Service: 02/06/23 Interval History: follow-up on diabetic foot infection, osteomyelitis no new issues, s/p debridment , H/H signficantly low and transfused yesterday with good effect COLT resolved. Physical Exam Vital Signs: Vital Signs: Last Vital Signs Temp 97.4 F 02/06/23 07:19 Pulse 76 02/06/23 07:19 Resp 20 02/06/23 07:19 BP 149/67 H 02/06/23 07:19 Pulse Ox 97 02/06/23 07:19 O2 Del Method Room Air 02/06/23 07:19 BMI result Body Mass Index 29.2 Const: Other: General: AO X 3, no acute distress Resp: CTA bilateral CVS: S1,S2,RRR GI: +BS, NT, no distention Skin: left foot wound dressing in place Neuro: motor grossly intact Psych: appropriate affect Objective Data Active Medications Acetaminophen (Acetaminophen 325 Mg Tablet) 650 mg PO Q6H PRN PRN Reason: Pain, Mild (Pain Scale 1-3) Amlodipine Besylate (Amlodipine Besylate 5 Mg Tablet) 5 mg PO DAILY [facility]; Protocol Last Admin: 02/06/23 07:55 Dose: 5 mg Documented By: CINDY Aspirin (Aspirin Enteric Coated 81 Mg Tablet.) 81 mg PO DAILY [facility] Last Admin: 02/06/23 07:54 Dose: 81 mg Documented By: CINDY Clopidogrel Bisulfate (Clopidogrel Bisulfate 75 Mg Tablet) 75 mg PO DAILY [facility] Last Admin: 02/06/23 07:55 Dose: 75 mg Documented By: CINDY Dextrose (Dextrose 50 % 25 Gm/50 Ml Syringe) 25 gm IVPUSH Q15M PRN; Protocol PRN Reason: per Hypoglycemia Standing Ord. Fentanyl (Fentanyl Citrate/Pf 100 Mcg/2 Ml Vial) 25 mcg IVPUSH Q5M PRN; Protocol PRN Reason: Pain, Moderate(Pain Scale 4-6) Glucose (Glucose Gel 15 Gm Gel..Gram.) 15 gm PO Q15M PRN; Protocol PRN Reason: per Hypoglycemia Standing Ord. Piperacillin Sod/Tazobactam (Sod 3.375 gm/ Sodium Chloride) 50 mls @ 100 mls/hr IV Q6H [facility] Last Infusion: 02/06/23 07:04 Dose: 0 mls/hr Documented By: CINDY Vancomycin HCl 1,250 mg/ (Sodium Chloride) 250 mls @ 166.667 mls/hr IV Q24H [facility] Last Infusion: 02/05/23 20:02 Dose: 0 mls/hr Documented By: CHARU Insulin Glargine (Insulin Glargine,Hum.Rec.Anlog 100 Unit/Ml 10 Ml Vial) 20 unit SUBCUT BEDTIME [facility] Last Admin: 02/05/23 20:23 Dose: 20 unit Documented By: CHARU Insulin Human Lispro (Insulin Lispro 100 Unit/Ml 3 Ml Vial) 0 unit SUBCUT QIDACHS [facility]; Protocol Last Admin: 02/06/23 07:55 Dose: 4 unit Documented By: CINDY Methadone HCl (Methadone Hcl 20 Mg/2 Ml Oral.Conc) 30 mg PO DAILY [facility] Last Admin: 02/06/23 07:55 Dose: 30 mg Documented By: CINDY Metoprolol Succinate (Metoprolol Succinate Er 100 Mg Tab.Er.24h) 100 mg PO DAILY [facility]; Protocol Last Admin: 02/06/23 07:55 Dose: 100 mg Documented By: CINDY Morphine Sulfate (Morphine Sulfate 4 Mg/Ml Cartridge) 4 mg IVPUSH Q4H PRN; Protocol PRN Reason: Pain, Severe (Pain Scale 7-10) Nicotine (Nicotine 21 Mg Patch.Td24) 21 mg TRANSDERMA DAILY [facility] Last Admin: 02/06/23 07:55 Dose: 21 mg Documented By: CINDY Oxycodone HCl (Oxycodone Hcl Immed Release 5 Mg Tablet) 5 mg PO Q4H PRN PRN Reason: Pain, Moderate(Pain Scale 4-6) Pharmacy Consult (Consult Rx Perform Med Rec) 1 each MISCELLANE ONCE PRN PRN Reason: Consult order Pharmacy Consult (Consult Rx Vancomycin Dosing) 1 each MISCELLANE DAILY PRN PRN Reason: Consult order Quetiapine Fumarate (Quetiapine Fumarate 100 Mg Tablet) 100 mg PO BEDTIME [facility] Last Admin: 02/05/23 19:20 Dose: 100 mg Documented By: CHARU Sodium Chloride (0.9 % Sodium Chloride Flush 3 Ml Syringe) 3 ml IVFLUSH QSHIFT [facility] Last Admin: 02/06/23 07:59 Dose: 3 ml Documented By: CINDY Vitamin D (Cholecalciferol (Vitamin D3) 25 Mcg Tablet) 50 mcg PO DAILY [facility] Last Admin: 02/06/23 07:55 Dose: 50 mcg Documented By: CINDY Labs 02/06/23 05:19 02/06/23 05:19 Labs: Laboratory Results - last 24 hr 02/02/23 02/05/23 02/05/23 18:59 06:00 09:01 MCV MCH MCHC RDW Plt Count MPV Absolute Nucleated RBC Nucleated RBC % (auto) Smear Path Review SEE NOTE Estim Creat Clear Calc Estimated GFR POC Glucose U Random Total Protein 50 H Ur Random Sodium 132.0 Urine Creatinine 32.84 Random Vancomycin Blood Type A Negative Antibody Screen NEGATIVE Crossmatch See Detail 02/05/23 02/05/23 02/05/23 11:05 16:04 17:16 MCV MCH MCHC RDW Plt Count MPV Absolute Nucleated RBC Nucleated RBC % (auto) Smear Path Review Estim Creat Clear Calc Estimated GFR POC Glucose 369 H* 365 H* U Random Total Protein Ur Random Sodium Urine Creatinine Random Vancomycin 12.8 L Blood Type Antibody Screen Crossmatch 02/05/23 02/06/23 02/06/23 19:49 05:19 05:19 MCV 89.5 MCH 30.5 MCHC 34.1 RDW 13.1 Plt Count 171 MPV 10.8 Absolute Nucleated RBC 0.000 Nucleated RBC % (auto) 0.0 Smear Path Review Estim Creat Clear Calc 66.1 Estimated GFR 58 POC Glucose 381 H* U Random Total Protein Ur Random Sodium Urine Creatinine Random Vancomycin Blood Type Antibody Screen Crossmatch 02/06/23 07:20 MCV MCH MCHC RDW Plt Count MPV Absolute Nucleated RBC Nucleated RBC % (auto) Smear Path Review Estim Creat Clear Calc Estimated GFR POC Glucose 228 H U Random Total Protein Ur Random Sodium Urine Creatinine Random Vancomycin Blood Type Antibody Screen Crossmatch Assessment and Plan (1) Cellulitis: Status: Acute (2) Sepsis: Status: Acute Plan 57-year-old male with history of diabetes, osteomyelitis who presents with a nonhealing left foot wound/5th toe . Sepsis secondary to nonhealing wound,/diabetic foot ulcer-suspected acute osteomyelitis, high ESR and CRP--see pic --s/p bedside debridment by Dr. Wahl and OR debridment 02/04 and probable will need definitive ampuation. He will have angiogram by Dr. Billings on Friday 02/09 -continue IV Abx (Vanco and Zosyn since 02/02), cultures negative thus far PAD Continue home medications. Vascular following, angiogram 02/09 COLT: on CKD, improving, continue IVF and monitor, Cr better 1.9 to 1.28 today, Nephrology need no longer to follow DM--SSI, add Lantus HIV:?continue home medication Hypertension-- hold hydrochlorothiazide and Lasix in the setting of COLT Chronic anemia: s/p 1 unit RBC 02/02, H/H worse, transfused 2 units 02/05, H/H is better HypOnatremia: Mild hypOnatremia possibly related to decreased p.o. intake, resolved DVT prophylaxis : Chemoprophylaxis on hold because of anemia. compression device need for inpt: IV Abx for sepsis, likely acute osteomylitis and may need further surgical intervention Time Spent With Patient Time: Total time managing care of this patient today ____ minutes. Quality Stroke Does the patient have a stroke diagnosis?: No VTE Prior VTE?: No VTE Risk Level:: Medical - moderate - high VTE Device Contraindication: N/A - Device Ordered VTE Drug Contraindication: N/A - Med Ordered
--- NOTE | 2023-02-06 09:45 | HO.VASCPN ---
Subjective Subjective Date of Service: 02/06/23 Patient reports: no new complaints and feels better Interval history: Very pleasant 57-year-old gentleman presents for routine follow-up regarding his left lower extremity. He has this nonhealing ulcer which was debrided by General surgery. They report some healing there is concern about the 4th toe as well. He now presents for vascular follow-up. Physical Exam Vital Signs: Vital Signs: Last Vital Signs Temp 97.4 F 02/06/23 07:19 Pulse 76 02/06/23 07:19 Resp 20 02/06/23 07:19 BP 149/67 H 02/06/23 07:19 Pulse Ox 97 02/06/23 07:19 O2 Del Method Room Air 02/06/23 07:19 BMI result Body Mass Index 29.2 Const: General: cooperative, healthy appearing and no acute distress Orientation/consciousness: oriented to person, oriented to place and oriented to time HEENT: Head: Yes normal to inspection Neck: Carotids: no bruits Chest: Chest palpation & inspection: normal inspection of the chest Resp: Effort & Inspection: normal respiratory effort and able to speak in complete sentences Auscultation: clear to auscultation bilaterally Cardio: Rate: regular rate Heart sounds: S1 normal heart sound present and S2 normal heart sound present GI: Inspection: Yes normal to inspection Skin: Other: Left foot dressing clean dry intact General skin exam: no rashes or lesions noted Wounds: no wounds Neuro: General: oriented to person, oriented to place, oriented to time and CN's II-XI intact bilaterally Extrem: General: Yes normal to inspection, Yes full ROM and Yes no clubbing, cyanosis or edema Psych: Appearance: grossly normal and well kempt Speech and movement: Normal speech and movement present Affect: normal affect Progress Note: A&P Assessment and plan (1) PAD (peripheral artery disease): Status: Acute Assessment and Plan: Patient has a nonhealing left leg ulcer. I have discussed the pathophysiology of peripheral vascular disease with the patient. I have also discussed risk factor modification. I have reviewed the patient's arterial testing which reveals left leg inflow disease along with common femoral disease. the patient would benefit from a left leg endovascular peripheral angiogram with possible angioplasty, stent, and/or atherectomy. This has been discussed in detail with the patient along with risks, benefits, and complications. This includes but is not limited to bleeding, infection, heart attack, need for emergent surgical repair, limb ischemia, blood vessel damage, bleeding, puncture, kidney injury, bruising, allergic reaction, and skin reaction. The patient demonstrates a clear understanding. We will schedule for the next appropriate time. Thank you for allowing us to assist in this patient's care. Time Spent With Patient Time: Total time managing care of this patient today ____ minutes. Procedures Date of Service Date of Service: 02/06/23 Quality Stroke Does the patient have a stroke diagnosis?: No VTE Prior VTE?: No VTE Risk Level:: Medical - moderate - high VTE Device Contraindication: N/A - Device Ordered VTE Drug Contraindication: N/A - Med Ordered
--- NOTE | 2023-02-06 10:23 | MHC.CM.PN ---
Per ROUNDS discussion, Patient will have Surgery on Thursday and is not yet medically cleared for dc. Home/resume services is the goal; and CM will continue to follow.
[2023-02-06 11:13] VITALS: BP 145/70; PULSE 71; RESP 20; TEMP 36.9; O2SAT 99
[2023-02-06 15:23] VITALS: BP 156/73; PULSE 72; RESP 16; TEMP 36.3; O2SAT 98
[2023-02-06 18:46] VITALS: BP 142/65; PULSE 76; RESP 17; TEMP 36.1; O2SAT 99
[2023-02-06] MEDS: Insulin Glargine,Hum.rec.anlog 100 UNIT/ML 10 ML VIAL 20 UNIT SUBCUT (19:31)
--- NOTE | 2023-02-06 23:50 | PM.PNNEP ---
Subjective Subjective Date of Service: 02/06/23 Interval history: follow-up on diabetic foot infection, osteomyelitis no new issues, s/p debridment , H/H signficantly low and transfused yesterday with good effect COLT resolved. Physical Exam Vital Signs: Vital Signs: Last Vital Signs Temp 97.0 F 02/06/23 18:46 Pulse 76 02/06/23 18:46 Resp 17 02/06/23 18:46 BP 142/65 H 02/06/23 18:46 Pulse Ox 99 02/06/23 18:46 O2 Del Method Room Air 02/06/23 18:46 BMI result Body Mass Index 29.2 Const: General: cooperative, healthy appearing and no acute distress Orientation/consciousness: oriented to person, oriented to place and oriented to time HEENT: Head: Yes normal to inspection Neck: Carotids: no bruits Chest: Chest palpation & inspection: normal inspection of the chest Resp: Effort & Inspection: normal respiratory effort and able to speak in complete sentences Auscultation: clear to auscultation bilaterally Cardio: Rate: regular rate Heart sounds: S1 normal heart sound present and S2 normal heart sound present GI: Inspection: Yes normal to inspection Skin: Other: Left foot dressing clean dry intact General skin exam: no rashes or lesions noted Wounds: no wounds Neuro: General: oriented to person, oriented to place, oriented to time and CN's II-XI intact bilaterally Extrem: General: Yes normal to inspection, Yes full ROM and Yes no clubbing, cyanosis or edema Psych: Appearance: grossly normal and well kempt Speech and movement: Normal speech and movement present Affect: normal affect Objective Data Labs 02/06/23 05:19 02/06/23 05:19 Labs: Laboratory Results - last 24 hr 02/06/23 02/06/23 02/06/23 05:19 05:19 07:20 WBC 9.4 RBC 2.95 L D Hgb 9.0 L D Hct 26.4 L D MCV 89.5 MCH 30.5 MCHC 34.1 RDW 13.1 Plt Count 171 MPV 10.8 Absolute Nucleated RBC 0.000 Nucleated RBC % (auto) 0.0 Creatinine 1.28 Estim Creat Clear Calc 66.1 Estimated GFR 58 POC Glucose 228 H 02/06/23 02/06/23 02/06/23 11:15 16:13 19:22 WBC RBC Hgb Hct MCV MCH MCHC RDW Plt Count MPV Absolute Nucleated RBC Nucleated RBC % (auto) Creatinine Estim Creat Clear Calc Estimated GFR POC Glucose 289 H 394 H* 387 H* Microbiology Microbiology Results: Microbiology 02/02/23 18:35 Blood - Venous Blood Culture - Preliminary No growth after 48 hours. 02/02/23 16:04 Blood - Venous Blood Culture - Preliminary No growth after 48 hours. Procedures Date of Service Date of Service: 02/06/23 Assessment & Plan Assessment and plan (1) Acute kidney injury: Status: Acute Plan 1. 57-year-old male with acute kidney injury.? Acute kidney injury, likely secondary to multifactorial reasons.? Clinically, might be slightly prerenal. He had infection in the foot with likely renal hypoperfusion associated with it.? The patient was on furosemide and hydrochlorothiazide which could have also induced renal insufficiency. 2. He was on human immunodeficiency viruses medication combination which had tenofovir, which is also a nephrotoxic agent.? We need to rule out obstruction. ?Renal function does not improve. 3. Chronic kidney disease stage 3 at baseline setting of longstanding diabetes and hypertension likely diabetic/hypertensive renal disease. 4. Diabetic foot infection with suspicion of osteomyelitis. 5. Type 2 diabetes mellitus. 6. Human immunodeficiency viruses positive status. 7. Hypertension. ? RECOMMENDATION:? Continue holding off on diuretic, Lasix and hydrochlorothiazide as pt may go for an angio ? I agree with holding off on metformin for now. ? Can restart HIV medication ? In regard to risk of contrast nephropathy, he is at high risk of contrast nephropathy, which include due to multiple reasons.? I recommend giving IV hydration normal saline at 1 mL/kg per hour for 8 hours to 12 pre and 8 hours to 12 hours post. Time Spent With Patient Time: Total time managing care of this patient today ____ minutes. Progress Note: Quality Stroke Does the patient have a stroke diagnosis?: No
[2023-02-07] VITALS (7 sets, daily range): BP systolic 134–173; BP diastolic 63–81; PULSE 66–76; RESP 16–20; TEMP 36.2–36.8; O2SAT 98–100
[2023-02-07] MEDS: Piperacillin Sodium/Tazobactam 3.375 GM in 0.9 % Sodium Chloride 50 ML IV ×4 (00:18→17:48)
[2023-02-07] MEDS: Metoprolol Succinate ER 100 MG TAB.ER.24H PO (07:51)
[2023-02-07] MEDS: Nicotine 21 MG PATCH.TD24 TRANSDERMA (07:52)
[2023-02-07] MEDS: Insulin Lispro 100 UNIT/ML 3 ML VIAL SUBCUT ×6 (07:52→20:16)
[2023-02-07] MEDS: Aspirin Enteric Coated 81 MG TABLET.DR PO (07:52)
[2023-02-07] MEDS: amLODIPine Besylate 5 MG TABLET PO (07:52)
[2023-02-07] MEDS: Cholecalciferol (Vitamin D3) 25 MCG TABLET 50 MCG PO (07:52)
[2023-02-07] MEDS: Clopidogrel Bisulfate 75 MG TABLET PO (07:52)
[2023-02-07] MEDS: methADONE HCl 20 MG/2 ML ORAL.CONC 30 MG PO (07:53)
--- NOTE | 2023-02-07 08:14 | HE.PHANOTE ---
VANCOMYCIN ADDENDUM RENAL FUNCTION IS SLOWLY IMPROVING, MAY NEED TO INCREASE DOSE, LEVEL DUE TODAY AT 1700 CAN DECIDE AFTER WE GET THIS LEVEL
--- NOTE | 2023-02-07 08:52 | HO.PM.IMPN ---
Subjective Subjective Date of Service: 02/07/23 Interval History: follow-up on diabetic foot infection, osteomyelitis no new issues, s/p debridment , no new issues, anemia improved Physical Exam Vital Signs: Vital Signs: Last Vital Signs Temp 97.4 F 02/07/23 07:27 Pulse 71 02/07/23 07:27 Resp 16 02/07/23 07:27 BP 156/66 H 02/07/23 07:27 Pulse Ox 99 02/07/23 07:27 O2 Del Method Room Air 02/07/23 07:27 BMI result Body Mass Index 29.2 Const: Other: General: AO X 3, no acute distress Resp: CTA bilateral CVS: S1,S2,RRR GI: +BS, NT, no distention Skin: left foot wound dressing in place Neuro: motor grossly intact Psych: appropriate affect Objective Data Active Medications Acetaminophen (Acetaminophen 325 Mg Tablet) 650 mg PO Q6H PRN PRN Reason: Pain, Mild (Pain Scale 1-3) Amlodipine Besylate (Amlodipine Besylate 5 Mg Tablet) 5 mg PO DAILY [facility]; Protocol Last Admin: 02/07/23 07:52 Dose: 5 mg Documented By: CAROLINA Aspirin (Aspirin Enteric Coated 81 Mg Tablet.) 81 mg PO DAILY [facility] Last Admin: 02/07/23 07:52 Dose: 81 mg Documented By: CAROLINA Clopidogrel Bisulfate (Clopidogrel Bisulfate 75 Mg Tablet) 75 mg PO DAILY [facility] Last Admin: 02/07/23 07:52 Dose: 75 mg Documented By: CAROLINA Dextrose (Dextrose 50 % 25 Gm/50 Ml Syringe) 25 gm IVPUSH Q15M PRN; Protocol PRN Reason: per Hypoglycemia Standing Ord. Fentanyl (Fentanyl Citrate/Pf 100 Mcg/2 Ml Vial) 25 mcg IVPUSH Q5M PRN; Protocol PRN Reason: Pain, Moderate(Pain Scale 4-6) Glucose (Glucose Gel 15 Gm Gel..Gram.) 15 gm PO Q15M PRN; Protocol PRN Reason: per Hypoglycemia Standing Ord. Piperacillin Sod/Tazobactam (Sod 3.375 gm/ Sodium Chloride) 50 mls @ 100 mls/hr IV Q6H [facility] Last Infusion: 02/07/23 06:36 Dose: 0 mls/hr Documented By: REBA Vancomycin HCl 1,250 mg/ (Sodium Chloride) 250 mls @ 166.667 mls/hr IV Q24H [facility] Last Infusion: 02/06/23 19:44 Dose: 0 mls/hr Documented By: BRADLEY Sodium Chloride (Ns) 1,000 mls @ 100 mls/hr IVCONT .Q10H [facility] Insulin Glargine (Insulin Glargine,Hum.Rec.Anlog 100 Unit/Ml 10 Ml Vial) 20 unit SUBCUT BEDTIME [facility] Last Admin: 02/06/23 19:31 Dose: 20 unit Documented By: BRADLEY Insulin Human Lispro (Insulin Lispro 100 Unit/Ml 3 Ml Vial) 0 unit SUBCUT QIDACHS [facility]; Protocol Last Admin: 02/07/23 07:52 Dose: 4 unit Documented By: CAROLINA Methadone HCl (Methadone Hcl 20 Mg/2 Ml Oral.Conc) 30 mg PO DAILY [facility] Last Admin: 02/07/23 07:53 Dose: 30 mg Documented By: CAROLINA Metoprolol Succinate (Metoprolol Succinate Er 100 Mg Tab.Er.24h) 100 mg PO DAILY [facility]; Protocol Last Admin: 02/07/23 07:51 Dose: 100 mg Documented By: CAROLINA Morphine Sulfate (Morphine Sulfate 4 Mg/Ml Cartridge) 4 mg IVPUSH Q4H PRN; Protocol PRN Reason: Pain, Severe (Pain Scale 7-10) Nicotine (Nicotine 21 Mg Patch.Td24) 21 mg TRANSDERMA DAILY [facility] Last Admin: 02/07/23 07:52 Dose: 21 mg Documented By: CAROLINA Oxycodone HCl (Oxycodone Hcl Immed Release 5 Mg Tablet) 5 mg PO Q4H PRN PRN Reason: Pain, Moderate(Pain Scale 4-6) Pharmacy Consult (Consult Rx Perform Med Rec) 1 each MISCELLANE ONCE PRN PRN Reason: Consult order Pharmacy Consult (Consult Rx Vancomycin Dosing) 1 each MISCELLANE DAILY PRN PRN Reason: Consult order Quetiapine Fumarate (Quetiapine Fumarate 100 Mg Tablet) 100 mg PO BEDTIME [facility] Last Admin: 02/06/23 19:31 Dose: 100 mg Documented By: BRADLEY Sodium Chloride (0.9 % Sodium Chloride Flush 3 Ml Syringe) 3 ml IVFLUSH QSHIFT [facility] Last Admin: 02/07/23 07:53 Dose: 3 ml Documented By: CAROLINA Vitamin D (Cholecalciferol (Vitamin D3) 25 Mcg Tablet) 50 mcg PO DAILY [facility] Last Admin: 02/07/23 07:52 Dose: 50 mcg Documented By: CAROLINA Labs 02/06/23 05:19 02/07/23 06:14 Labs: Laboratory Results - last 24 hr 02/06/23 02/06/23 02/06/23 11:15 16:13 19:22 Estim Creat Clear Calc Estimated GFR POC Glucose 289 H 394 H* 387 H* 02/07/23 02/07/23 06:14 07:29 Estim Creat Clear Calc 73.6 Estimated GFR > 60 POC Glucose 236 H Assessment and Plan (1) Cellulitis: Status: Acute (2) Sepsis: Status: Acute Plan 57-year-old male with history of diabetes, osteomyelitis who presents with a nonhealing left foot wound/5th toe . Sepsis secondary to nonhealing wound,/diabetic foot ulcer-suspected acute osteomyelitis, high ESR and CRP--see pic --s/p bedside debridment by Dr. Wahl and OR debridment 02/04 and probable will need definitive ampuation. He will have angiogram by Dr. Billings on Friday 02/09 -continue IV Abx (Vanco and Zosyn since 02/02), cultures negative thus far PAD Continue home medications. Vascular following, angiogram 02/09 COLT: on CKD, improving, continue IVF and monitor, Cr better 1.9 to 1.15 today, Nephrology need no longer to follow DM--SSI, add Lantus HIV:?continue home medication Hypertension-- hold hydrochlorothiazide and Lasix in the setting of COLT Chronic anemia: s/p 1 unit RBC 02/02, H/H worse, transfused 2 units 02/05, H/H is better HypOnatremia: Mild hypOnatremia possibly related to decreased p.o. intake, resolved DVT prophylaxis : Chemoprophylaxis on hold because of anemia. compression device need for inpt: IV Abx for sepsis, likely acute osteomylitis and may need further surgical intervention Time Spent With Patient Time: Total time managing care of this patient today ____ minutes. Quality Stroke Does the patient have a stroke diagnosis?: No VTE Prior VTE?: No VTE Risk Level:: Medical - moderate - high VTE Device Contraindication: N/A - Device Ordered VTE Drug Contraindication: N/A - Med Ordered
--- NOTE | 2023-02-07 14:12 | PM.PNNEP ---
Subjective Subjective Date of Service: 02/07/23 Interval history: follow-up on diabetic foot infection, osteomyelitis no new issues, s/p debridment , no new issues, anemia improved Physical Exam Vital Signs: Vital Signs: Last Vital Signs Temp 97.3 F 02/07/23 11:04 Pulse 71 02/07/23 11:04 Resp 18 02/07/23 11:04 BP 134/63 02/07/23 11:04 Pulse Ox 100 02/07/23 11:04 O2 Del Method Room Air 02/07/23 11:04 BMI result Body Mass Index 29.2 Const: Other: General: AO X 3, no acute distress Resp: CTA bilateral CVS: S1,S2,RRR GI: +BS, NT, no distention Skin: left foot wound dressing in place Neuro: motor grossly intact Psych: appropriate affect Objective Data Labs 02/06/23 05:19 02/07/23 06:14 Labs: Laboratory Results - last 24 hr 02/06/23 02/06/23 02/07/23 16:13 19:22 06:14 Creatinine 1.15 Estim Creat Clear Calc 73.6 Estimated GFR > 60 POC Glucose 394 H* 387 H* 02/07/23 02/07/23 07:29 11:06 Creatinine Estim Creat Clear Calc Estimated GFR POC Glucose 236 H 322 H Microbiology Microbiology Results: Microbiology 02/02/23 18:35 Blood - Venous Blood Culture - Preliminary No growth after 48 hours. 02/02/23 16:04 Blood - Venous Blood Culture - Preliminary No growth after 48 hours. Procedures Date of Service Date of Service: 02/07/23 Assessment & Plan Assessment and plan (1) Acute kidney injury: Status: Acute Plan 1. 57-year-old male with acute kidney injury.? Acute kidney injury, likely secondary to multifactorial reasons.? Clinically, might be slightly prerenal. He had infection in the foot with likely renal hypoperfusion associated with it.? The patient was on furosemide and hydrochlorothiazide which could have also induced renal insufficiency. 2. He was on human immunodeficiency viruses medication combination which had tenofovir, which is also a nephrotoxic agent.? We need to rule out obstruction. ?Renal function does not improve. 3. Chronic kidney disease stage 3 at baseline setting of longstanding diabetes and hypertension likely diabetic/hypertensive renal disease. 4. Diabetic foot infection with suspicion of osteomyelitis. 5. Type 2 diabetes mellitus. 6. Human immunodeficiency viruses positive status. 7. Hypertension. ? RECOMMENDATION:? Continue holding off on diuretic, Lasix and hydrochlorothiazide as pt may go for an angio ? I agree with holding off on metformin for now. ? Can restart HIV medication ? In regard to risk of contrast nephropathy, he is at high risk of contrast nephropathy, which include due to multiple reasons.? I recommend giving IV hydration normal saline at 1 mL/kg per hour for 8 hours to 12 pre and 8 hours to 12 hours post. Will sign Off Thx Time Spent With Patient Time: Total time managing care of this patient today ____ minutes. Progress Note: Quality Stroke Does the patient have a stroke diagnosis?: No
[2023-02-07] MEDS: Insulin Glargine,Hum.rec.anlog 100 UNIT/ML 10 ML VIAL 20 UNIT SUBCUT (20:14)
[2023-02-08] VITALS (7 sets, daily range): BP systolic 139–171; BP diastolic 67–79; PULSE 66–77; RESP 17–20; TEMP 35.8–36.7; O2SAT 98–100
[2023-02-08] MEDS: Piperacillin Sodium/Tazobactam 3.375 GM in 0.9 % Sodium Chloride 50 ML IV ×5 (01:24→23:11)
[2023-02-08 07:09] LABS: Creatinine Clr Calc Pharmacy 81.4; Estimated Glomerular Filt Rate > 60
[2023-02-08] MEDS: Cholecalciferol (Vitamin D3) 25 MCG TABLET 50 MCG PO (08:30)
[2023-02-08] MEDS: amLODIPine Besylate 5 MG TABLET PO (08:30)
[2023-02-08] MEDS: Metoprolol Succinate ER 100 MG TAB.ER.24H PO (08:30)
[2023-02-08] MEDS: methADONE HCl 20 MG/2 ML ORAL.CONC 30 MG PO (08:30)
[2023-02-08] MEDS: Nicotine 21 MG PATCH.TD24 TRANSDERMA (08:30)
[2023-02-08] MEDS: Aspirin Enteric Coated 81 MG TABLET.DR PO (08:30)
[2023-02-08] MEDS: Clopidogrel Bisulfate 75 MG TABLET PO (08:30)
--- NOTE | 2023-02-08 08:48 | HE.PHANOTE ---
VANCOMYCIN ADDENDUM RENAL FUNCTION CONTINUES TO IMPROVE, NEXT LEVEL FOR 02/09/23, WILL KEEP SAME DOSE, MAY CONSIDER CHANGING TO Q 12 HOURS IN RENAL FUNCTION CONTINUES TO IMPROVE
--- NOTE | 2023-02-08 08:54 | HO.PM.IMPN ---
Subjective Subjective Date of Service: 02/08/23 Interval History: follow-up on diabetic foot infection, osteomyelitis doing well, no new issues Physical Exam Vital Signs: Vital Signs: Last Vital Signs Temp 98.1 F 02/08/23 07:12 Pulse 72 02/08/23 07:12 Resp 20 02/08/23 07:12 BP 139/67 02/08/23 07:12 Pulse Ox 100 02/08/23 07:12 O2 Del Method Room Air 02/08/23 07:12 BMI result Body Mass Index 29.2 Const: Other: General: AO X 3, no acute distress Resp: CTA bilateral CVS: S1,S2,RRR GI: +BS, NT, no distention Skin: left foot wound dressing in place Neuro: motor grossly intact Psych: appropriate affect Objective Data Active Medications Acetaminophen (Acetaminophen 325 Mg Tablet) 650 mg PO Q6H PRN PRN Reason: Pain, Mild (Pain Scale 1-3) Amlodipine Besylate (Amlodipine Besylate 5 Mg Tablet) 5 mg PO DAILY [facility]; Protocol Last Admin: 02/08/23 08:30 Dose: 5 mg Documented By: DINO Aspirin (Aspirin Enteric Coated 81 Mg Tablet.) 81 mg PO DAILY [facility] Last Admin: 02/08/23 08:30 Dose: 81 mg Documented By: DINO Clopidogrel Bisulfate (Clopidogrel Bisulfate 75 Mg Tablet) 75 mg PO DAILY [facility] Last Admin: 02/08/23 08:30 Dose: 75 mg Documented By: DINO Dextrose (Dextrose 50 % 25 Gm/50 Ml Syringe) 25 gm IVPUSH Q15M PRN; Protocol PRN Reason: per Hypoglycemia Standing Ord. Fentanyl (Fentanyl Citrate/Pf 100 Mcg/2 Ml Vial) 25 mcg IVPUSH Q5M PRN; Protocol PRN Reason: Pain, Moderate(Pain Scale 4-6) Glucose (Glucose Gel 15 Gm Gel..Gram.) 15 gm PO Q15M PRN; Protocol PRN Reason: per Hypoglycemia Standing Ord. Piperacillin Sod/Tazobactam (Sod 3.375 gm/ Sodium Chloride) 50 mls @ 100 mls/hr IV Q6H [facility] Last Infusion: 02/08/23 06:43 Dose: 0 mls/hr Documented By: REBA Sodium Chloride (Ns) 1,000 mls @ 100 mls/hr IVCONT .Q10H [facility] Vancomycin HCl 1,500 mg/ (Sodium Chloride) 500 mls @ 333.333 mls/hr IV Q24H [facility] Last Infusion: 02/07/23 20:03 Dose: 0 mls/hr Documented By: REBA Insulin Glargine (Insulin Glargine,Hum.Rec.Anlog 100 Unit/Ml 10 Ml Vial) 20 unit SUBCUT BEDTIME [facility] Last Admin: 02/07/23 20:14 Dose: 20 unit Documented By: REBA Insulin Human Lispro (Insulin Lispro 100 Unit/Ml 3 Ml Vial) 0 unit SUBCUT QIDACHS [facility]; Protocol Last Admin: 02/08/23 08:03 Dose: Not Given Documented By: DINO Non-Admin Reason: No Insulin Coverage Insulin Human Lispro (Insulin Lispro 100 Unit/Ml 3 Ml Vial) 5 unit SUBCUT QIDACHS [facility] Last Admin: 02/08/23 08:03 Dose: Not Given Documented By: DINO Non-Admin Reason: POC 106 Methadone HCl (Methadone Hcl 20 Mg/2 Ml Oral.Conc) 30 mg PO DAILY [facility] Last Admin: 02/08/23 08:30 Dose: 30 mg Documented By: DINO Metoprolol Succinate (Metoprolol Succinate Er 100 Mg Tab.Er.24h) 100 mg PO DAILY [facility]; Protocol Last Admin: 02/08/23 08:30 Dose: 100 mg Documented By: DINO Morphine Sulfate (Morphine Sulfate 4 Mg/Ml Cartridge) 4 mg IVPUSH Q4H PRN; Protocol PRN Reason: Pain, Severe (Pain Scale 7-10) Nicotine (Nicotine 21 Mg Patch.Td24) 21 mg TRANSDERMA DAILY [facility] Last Admin: 02/08/23 08:30 Dose: 21 mg Documented By: DINO Oxycodone HCl (Oxycodone Hcl Immed Release 5 Mg Tablet) 5 mg PO Q4H PRN PRN Reason: Pain, Moderate(Pain Scale 4-6) Pharmacy Consult (Consult Rx Perform Med Rec) 1 each MISCELLANE ONCE PRN PRN Reason: Consult order Pharmacy Consult (Consult Rx Vancomycin Dosing) 1 each MISCELLANE DAILY PRN PRN Reason: Consult order Quetiapine Fumarate (Quetiapine Fumarate 100 Mg Tablet) 100 mg PO BEDTIME [facility] Last Admin: 02/07/23 20:14 Dose: 100 mg Documented By: REBA Sodium Chloride (0.9 % Sodium Chloride Flush 3 Ml Syringe) 3 ml IVFLUSH QSHIFT [facility] Last Admin: 02/08/23 08:31 Dose: 3 ml Documented By: DINO Vitamin D (Cholecalciferol (Vitamin D3) 25 Mcg Tablet) 50 mcg PO DAILY [facility] Last Admin: 02/08/23 08:30 Dose: 50 mcg Documented By: DINO Labs 02/06/23 05:19 02/08/23 05:49 Labs: Laboratory Results - last 24 hr 02/07/23 02/07/23 02/07/23 11:06 15:30 17:04 Estim Creat Clear Calc Estimated GFR POC Glucose 322 H 371 H* Vancomycin Trough 12.9 02/07/23 02/08/23 02/08/23 19:16 05:49 07:15 Estim Creat Clear Calc 81.4 Estimated GFR > 60 POC Glucose 385 H* 106 Vancomycin Trough Microbiology Microbiology Results: Microbiology 02/02/23 18:35 Blood Culture - Final Blood - Venous No growth after 5 days. 02/02/23 16:04 Blood Culture - Final Blood - Venous No growth after 5 days. Assessment and Plan (1) Cellulitis: Status: Acute (2) Sepsis: Status: Acute Plan 57-year-old male with history of diabetes, osteomyelitis who presents with a nonhealing left foot wound/5th toe . Sepsis secondary to nonhealing wound,/diabetic foot ulcer-suspected acute osteomyelitis, high ESR and CRP--see pic --s/p bedside debridment by Dr. Wahl and OR debridment 02/04 and probable will need definitive ampuation. He will have angiogram by Dr. Billings on Friday 02/09 -continue IV Abx (Vanco and Zosyn since 02/02), cultures negative thus far PAD Continue home medications. Vascular following, angiogram planed for 02/09 COLT: on CKD, improving, continue IVF and monitor, Cr better 1.9 to 1.04 today, Nephrology need no longer to follow DM--Lantus+SSI+5u pre-meal--FBS 106 HIV:?continue home medication Hypertension-- hold hydrochlorothiazide and Lasix in the setting of COLT Chronic anemia: s/p 1 unit RBC 7/3, H/H worse, transfused 2 units /, H/H is better HypOnatremia: Mild hypOnatremia possibly related to decreased p.o. intake, resolved DVT prophylaxis : Chemoprophylaxis on hold because of anemia. compression device need for inpt: IV Abx for sepsis, likely acute osteomylitis , awaiting angiogram and possibly amputation later Time Spent With Patient Time: Total time managing care of this patient today ____ minutes. Quality Stroke Does the patient have a stroke diagnosis?: No VTE Prior VTE?: No VTE Risk Level:: Medical - moderate - high VTE Device Contraindication: N/A - Device Ordered VTE Drug Contraindication: N/A - Med Ordered
[2023-02-08 10:51] LABS: Anion Gap 14 (12-20)
[2023-02-08] MEDS: Insulin Lispro 100 UNIT/ML 3 ML VIAL SUBCUT ×6 (11:19→20:10)
[2023-02-08 11:31] LABS: Carbon Dioxide 26 mmol/L (22-29); Chloride 108 mmol/L (96-108); Magnesium 1.8 mg/dL (1.6-2.6); Potassium 3.1 mmol/L (3.3-5.1); Sodium 145 mmol/L (135-145)
[2023-02-08] MEDS: QUEtiapine Fumarate 100 MG TABLET PO (17:09)
[2023-02-08] MEDS: Insulin Glargine,Hum.rec.anlog 100 UNIT/ML 10 ML VIAL 20 UNIT SUBCUT (20:09)
[2023-02-08] MEDS: 0.9 % Sodium Chloride 1,000 ML 100 ML IVCONT (23:48)
[2023-02-09] VITALS (16 sets, daily range): BP systolic 96–162; BP diastolic 55–72; PULSE 68–81; RESP 14–20; TEMP 36.3–37.6; O2SAT 97–100
[2023-02-09] MEDS: Piperacillin Sodium/Tazobactam 3.375 GM in 0.9 % Sodium Chloride 50 ML IV ×3 (06:04→23:09)
[2023-02-09 06:44] LABS: Estimated Glomerular Filt Rate > 60
--- NOTE | 2023-02-09 07:46 | PM.PNGS ---
Subjective Subjective Date of Service: 02/09/23 Interval history: denies any complaints no events reported for the weekend Physical Exam Vital Signs: Vital Signs: Last Vital Signs Temp 99.0 F 02/09/23 07:26 Pulse 74 02/09/23 07:26 Resp 18 02/09/23 07:26 BP 161/72 H 02/09/23 07:26 Pulse Ox 100 02/09/23 07:26 O2 Del Method Room Air 02/09/23 07:26 BMI result Body Mass Index 29.2 Const: General: comfortable and no acute distress Resp: Effort & Inspection: normal respiratory effort Cardio: Rate: regular rate GI: Palpation (GI): Soft to palpation Extrem: Other: dressings on left foot taken down - large open wound with soft tissue defect around 5th toe amputation, clean, no residual gangrene or pus, 4th toe with discoloration on the dorsal aspect consistent with ischemia of skin Objective Data Active Medications Acetaminophen (Acetaminophen 325 Mg Tablet) 650 mg PO Q6H PRN PRN Reason: Pain, Mild (Pain Scale 1-3) Amlodipine Besylate (Amlodipine Besylate 5 Mg Tablet) 5 mg PO DAILY [facility]; Protocol Last Admin: 02/08/23 08:30 Dose: 5 mg Documented By: DINO Aspirin (Aspirin Enteric Coated 81 Mg Tablet.) 81 mg PO DAILY [facility] Last Admin: 02/08/23 08:30 Dose: 81 mg Documented By: DINO Clopidogrel Bisulfate (Clopidogrel Bisulfate 75 Mg Tablet) 75 mg PO DAILY [facility] Last Admin: 02/08/23 08:30 Dose: 75 mg Documented By: DINO Dextrose (Dextrose 50 % 25 Gm/50 Ml Syringe) 25 gm IVPUSH Q15M PRN; Protocol PRN Reason: per Hypoglycemia Standing Ord. Glucose (Glucose Gel 15 Gm Gel..Gram.) 15 gm PO Q15M PRN; Protocol PRN Reason: per Hypoglycemia Standing Ord. Piperacillin Sod/Tazobactam (Sod 3.375 gm/ Sodium Chloride) 50 mls @ 100 mls/hr IV Q6H [facility] Last Infusion: 02/09/23 07:20 Dose: 100 mls/hr Documented By: MARISELA Sodium Chloride (Ns) 1,000 mls @ 100 mls/hr IVCONT .Q10H [facility] Last Admin: 02/08/23 23:48 Dose: 100 mls/hr Documented By: MARISELA Vancomycin HCl 1,500 mg/ (Sodium Chloride) 500 mls @ 333.333 mls/hr IV Q24H [facility] Last Infusion: 02/08/23 23:17 Dose: 333.3 mls/hr Documented By: MARISELA Insulin Glargine (Insulin Glargine,Hum.Rec.Anlog 100 Unit/Ml 10 Ml Vial) 20 unit SUBCUT BEDTIME [facility] Last Admin: 02/08/23 20:09 Dose: 20 unit Documented By: MARISELA Insulin Human Lispro (Insulin Lispro 100 Unit/Ml 3 Ml Vial) 0 unit SUBCUT QIDACHS [facility]; Protocol Last Admin: 02/08/23 20:10 Dose: 8 unit Documented By: MARISELA Insulin Human Lispro (Insulin Lispro 100 Unit/Ml 3 Ml Vial) 5 unit SUBCUT QIDACHS [facility] Last Admin: 02/08/23 20:09 Dose: 5 unit Documented By: MARISELA Magnesium Hydroxide (Milk Of Magnesia 30 Ml Oral.Susp) 30 ml PO DAILY PRN PRN Reason: Constipation Methadone HCl (Methadone Hcl 20 Mg/2 Ml Oral.Conc) 30 mg PO DAILY [facility] Last Admin: 02/08/23 08:30 Dose: 30 mg Documented By: DINO Metoprolol Succinate (Metoprolol Succinate Er 100 Mg Tab.Er.24h) 100 mg PO DAILY [facility]; Protocol Last Admin: 02/08/23 08:30 Dose: 100 mg Documented By: DINO Morphine Sulfate (Morphine Sulfate 4 Mg/Ml Cartridge) 4 mg IVPUSH Q4H PRN; Protocol PRN Reason: Pain, Severe (Pain Scale 7-10) Nicotine (Nicotine 21 Mg Patch.Td24) 21 mg TRANSDERMA DAILY [facility] Last Admin: 02/08/23 08:30 Dose: 21 mg Documented By: DINO Pt Own (Emtricitab- Rilpivir-Tenofo Ala [Odefsey] 200-25-25 Mg Tablet) 1 tab PO DAILY@1200 [facility] Last Admin: 02/08/23 14:59 Dose: 1 tab Documented By: DINO Oxycodone HCl (Oxycodone Hcl Immed Release 5 Mg Tablet) 5 mg PO Q4H PRN PRN Reason: Pain, Moderate(Pain Scale 4-6) Pharmacy Consult (Consult Rx Perform Med Rec) 1 each MISCELLANE ONCE PRN PRN Reason: Consult order Pharmacy Consult (Consult Rx Vancomycin Dosing) 1 each MISCELLANE DAILY PRN PRN Reason: Consult order Polyethylene Glycol (Polyethylene Glycol 3350 17 Gm Powd.Pack) 17 gm PO DAILY PRN PRN Reason: Constipation Last Admin: 02/08/23 13:23 Dose: 17 gm Documented By: ESTHER Quetiapine Fumarate (Quetiapine Fumarate 100 Mg Tablet) 100 mg PO DAILY@1800 [facility] Last Admin: 02/08/23 17:09 Dose: 100 mg Documented By: DINO Sodium Chloride (0.9 % Sodium Chloride Flush 3 Ml Syringe) 3 ml IVFLUSH QSHIFT [facility] Last Admin: 02/09/23 00:23 Dose: 3 ml Documented By: MARISELA Vitamin D (Cholecalciferol (Vitamin D3) 25 Mcg Tablet) 50 mcg PO DAILY [facility] Last Admin: 02/08/23 08:30 Dose: 50 mcg Documented By: DINO Labs 02/06/23 05:19 02/09/23 06:13 Labs: Laboratory Results - last 24 hr 02/08/23 02/08/23 02/08/23 05:49 07:15 11:14 Anion Gap 14 Estim Creat Clear Calc Estimated GFR POC Glucose 106 271 H Magnesium 1.8 02/08/23 02/08/23 02/09/23 15:07 19:25 06:13 Anion Gap Estim Creat Clear Calc 83.0 Estimated GFR > 60 POC Glucose 315 H 304 H Magnesium 02/09/23 07:28 Anion Gap Estim Creat Clear Calc Estimated GFR POC Glucose 132 H Magnesium Procedures Date of Service Date of Service: 02/09/23 Progress Note: A&P Assessment and plan (1) Gangrene of left foot: Status: Acute Assessment and Plan: status post amputation and debridement large open wound with soft tissue defect clean for angiogram today with Dr. Billings patient and family now stating that if he needs further amputation, he would rather for BKA then amputate the 4th toe appears to be darkly discolored the dorsal aspect Time Spent With Patient Time: Total time managing care of this patient today ____ minutes. Quality Stroke Does the patient have a stroke diagnosis?: No VTE Prior VTE?: No VTE Risk Level:: Medical - moderate - high VTE Device Contraindication: N/A - Device Ordered VTE Drug Contraindication: N/A - Med Ordered
--- NOTE | 2023-02-09 09:02 | HO.PM.IMPN ---
Subjective Subjective Date of Service: 02/09/23 Interval History: follow-up on diabetic foot infection, osteomyelitis doing well, no new issues, for angiogram today Physical Exam Vital Signs: Vital Signs: Last Vital Signs Temp 99.0 F 02/09/23 07:26 Pulse 74 02/09/23 07:26 Resp 18 02/09/23 07:26 BP 161/72 H 02/09/23 07:26 Pulse Ox 100 02/09/23 07:26 O2 Del Method Room Air 02/09/23 07:26 BMI result Body Mass Index 29.2 Const: Other: General: AO X 3, no acute distress Resp: CTA bilateral CVS: S1,S2,RRR GI: +BS, NT, no distention Skin: left foot wound dressing in place Neuro: motor grossly intact Psych: appropriate affect Objective Data Active Medications Acetaminophen (Acetaminophen 325 Mg Tablet) 650 mg PO Q6H PRN PRN Reason: Pain, Mild (Pain Scale 1-3) Amlodipine Besylate (Amlodipine Besylate 5 Mg Tablet) 5 mg PO DAILY [facility]; Protocol Last Admin: 02/08/23 08:30 Dose: 5 mg Documented By: DINO Aspirin (Aspirin Enteric Coated 81 Mg Tablet.) 81 mg PO DAILY [facility] Last Admin: 02/08/23 08:30 Dose: 81 mg Documented By: DINO Clopidogrel Bisulfate (Clopidogrel Bisulfate 75 Mg Tablet) 75 mg PO DAILY [facility] Last Admin: 02/08/23 08:30 Dose: 75 mg Documented By: DINO Dextrose (Dextrose 50 % 25 Gm/50 Ml Syringe) 25 gm IVPUSH Q15M PRN; Protocol PRN Reason: per Hypoglycemia Standing Ord. Glucose (Glucose Gel 15 Gm Gel..Gram.) 15 gm PO Q15M PRN; Protocol PRN Reason: per Hypoglycemia Standing Ord. Piperacillin Sod/Tazobactam (Sod 3.375 gm/ Sodium Chloride) 50 mls @ 100 mls/hr IV Q6H [facility] Last Infusion: 02/09/23 07:20 Dose: 100 mls/hr Documented By: MARISELA Sodium Chloride (Ns) 1,000 mls @ 100 mls/hr IVCONT .Q10H [facility] Last Admin: 02/08/23 23:48 Dose: 100 mls/hr Documented By: MARISELA Vancomycin HCl 1,500 mg/ (Sodium Chloride) 500 mls @ 333.333 mls/hr IV Q24H [facility] Last Infusion: 02/08/23 23:17 Dose: 333.3 mls/hr Documented By: MARISELA Insulin Glargine (Insulin Glargine,Hum.Rec.Anlog 100 Unit/Ml 10 Ml Vial) 20 unit SUBCUT BEDTIME [facility] Last Admin: 02/08/23 20:09 Dose: 20 unit Documented By: MARISELA Insulin Human Lispro (Insulin Lispro 100 Unit/Ml 3 Ml Vial) 0 unit SUBCUT QIDACHS [facility]; Protocol Last Admin: 02/09/23 08:23 Dose: Not Given Documented By: ISIDRO Non-Admin Reason: No Insulin Coverage Insulin Human Lispro (Insulin Lispro 100 Unit/Ml 3 Ml Vial) 5 unit SUBCUT QIDACHS [facility] Last Admin: 02/09/23 08:24 Dose: Not Given Documented By: ISIDRO Non-Admin Reason: NPO Magnesium Hydroxide (Milk Of Magnesia 30 Ml Oral.Susp) 30 ml PO DAILY PRN PRN Reason: Constipation Methadone HCl (Methadone Hcl 20 Mg/2 Ml Oral.Conc) 30 mg PO DAILY [facility] Last Admin: 02/08/23 08:30 Dose: 30 mg Documented By: DINO Metoprolol Succinate (Metoprolol Succinate Er 100 Mg Tab.Er.24h) 100 mg PO DAILY [facility]; Protocol Last Admin: 02/08/23 08:30 Dose: 100 mg Documented By: DINO Morphine Sulfate (Morphine Sulfate 4 Mg/Ml Cartridge) 4 mg IVPUSH Q4H PRN; Protocol PRN Reason: Pain, Severe (Pain Scale 7-10) Nicotine (Nicotine 21 Mg Patch.Td24) 21 mg TRANSDERMA DAILY [facility] Last Admin: 02/08/23 08:30 Dose: 21 mg Documented By: DINO Pt Own (Emtricitab- Rilpivir-Tenofo Ala [Odefsey] 200-25-25 Mg Tablet) 1 tab PO DAILY@1200 [facility] Last Admin: 02/08/23 14:59 Dose: 1 tab Documented By: DINO Oxycodone HCl (Oxycodone Hcl Immed Release 5 Mg Tablet) 5 mg PO Q4H PRN PRN Reason: Pain, Moderate(Pain Scale 4-6) Pharmacy Consult (Consult Rx Perform Med Rec) 1 each MISCELLANE ONCE PRN PRN Reason: Consult order Pharmacy Consult (Consult Rx Vancomycin Dosing) 1 each MISCELLANE DAILY PRN PRN Reason: Consult order Polyethylene Glycol (Polyethylene Glycol 3350 17 Gm Powd.Pack) 17 gm PO DAILY PRN PRN Reason: Constipation Last Admin: 02/08/23 13:23 Dose: 17 gm Documented By: ESTHER Quetiapine Fumarate (Quetiapine Fumarate 100 Mg Tablet) 100 mg PO DAILY@1800 [facility] Last Admin: 02/08/23 17:09 Dose: 100 mg Documented By: DINO Sodium Chloride (0.9 % Sodium Chloride Flush 3 Ml Syringe) 3 ml IVFLUSH QSHIFT [facility] Last Admin: 02/09/23 00:23 Dose: 3 ml Documented By: MARISELA Vitamin D (Cholecalciferol (Vitamin D3) 25 Mcg Tablet) 50 mcg PO DAILY [facility] Last Admin: 02/08/23 08:30 Dose: 50 mcg Documented By: DINO Labs 02/06/23 05:19 02/09/23 06:13 Labs: Laboratory Results - last 24 hr 02/08/23 02/08/23 02/08/23 05:49 11:14 15:07 Anion Gap 14 Estim Creat Clear Calc Estimated GFR POC Glucose 271 H 315 H Magnesium 1.8 02/08/23 02/09/23 02/09/23 19:25 06:13 07:28 Anion Gap Estim Creat Clear Calc 83.0 Estimated GFR > 60 POC Glucose 304 H 132 H Magnesium Assessment and Plan (1) Cellulitis: Status: Acute (2) Sepsis: Status: Acute Plan 57-year-old male with history of diabetes, osteomyelitis who presents with a nonhealing left foot wound/5th toe . Sepsis secondary to nonhealing wound,/diabetic foot ulcer-suspected acute osteomyelitis--see pic (in ED note) --s/p bedside debridment by Dr. Wahl and OR debridment 02/04 and probable will need definitive ampuation, he is open to BKA. He will have angiogram by Dr. Billings on today 02/09 -continue IV Abx (Vanco and Zosyn since 02/02), cultures negative thus far PAD Continue home medications. Vascular following, angiogram planed for 02/09 COLT: on CKD, improving, continue IVF and monitor, Cr better 1.9 to 1.02 today, Nephrology need no longer to follow DM--Lantus+SSI+5u pre-meal--FBS 106 HIV:?continue home medication Hypertension-- hold hydrochlorothiazide and Lasix in the setting of COLT Chronic anemia: s/p 1 unit RBC 7/, H/H worse, transfused 2 units 7/6, H/H is better HypOnatremia: Mild hypOnatremia possibly related to decreased p.o. intake, resolved DVT prophylaxis : Chemoprophylaxis on hold because of anemia. compression device need for inpt: IV Abx for sepsis, likely acute osteomylitis , awaiting angiogram and possibly amputation later Time Spent With Patient Time: Total time managing care of this patient today ____ minutes. Quality Stroke Does the patient have a stroke diagnosis?: No VTE Prior VTE?: No VTE Risk Level:: Medical - moderate - high VTE Device Contraindication: N/A - Device Ordered VTE Drug Contraindication: N/A - Med Ordered
[2023-02-09] MEDS: Cholecalciferol (Vitamin D3) 25 MCG TABLET 50 MCG PO (09:05)
[2023-02-09] MEDS: Aspirin Enteric Coated 81 MG TABLET.DR PO (09:05)
[2023-02-09] MEDS: amLODIPine Besylate 5 MG TABLET PO (09:05)
[2023-02-09] MEDS: Clopidogrel Bisulfate 75 MG TABLET PO (09:05)
[2023-02-09] MEDS: Metoprolol Succinate ER 100 MG TAB.ER.24H PO (09:05)
[2023-02-09] MEDS: methADONE HCl 20 MG/2 ML ORAL.CONC 30 MG PO (09:06)
[2023-02-09] MEDS: 0.9 % Sodium Chloride 1,000 ML 100 ML IVCONT ×2 (09:08→23:14)
[2023-02-09] MEDS: Nicotine 21 MG PATCH.TD24 TRANSDERMA (09:09)
--- NOTE | 2023-02-09 10:11 | MHC.CM.PN ---
Patient is not yet medically cleared for dc (IV ABT, Angiogram today); Home/resume services is the goal and CM will continue to follow.
--- NOTE | 2023-02-09 14:01 | W.PM.OPN ---
Operative Note Operative Note Date of Service: 02/09/23 Narrative: Angiogram report from [facility] Preoperative diagnosis: Atherosclerosis of left lower extremity with nonhealing ulcer Postoperative diagnosis: Same Procedure: 1. Ultrasound-guided right common femoral access 2. Aortogram with left lower extremity runoff Surgeon:Luke Billings M.D., FACS, RPVI Cinder Crusher Operator:None Anesthesia: Local with moderate conscious sedation. Total intraservice moderate sedation time was 28 minutes. I monitored the patient's level of consciousness and physiologic status continuously throughout the procedure. Specimens:none Drains:none Estimated blood loss: Less than 10 ml Implant: None Indications: 57-year-old diabetic gentleman with nonhealing left leg ulcer. He has on noninvasive testing noted to be monophasic inflow. He now presents for endovascular intervention. The patient has signed the informed consent after reviewing risks, complications, benefits, and alternatives previously discussed with the patient. The patient was given the opportunity to ask any additional questions or voice any concerns. All questions were answered to the patient's satisfaction. Procedure in detail: Patient was brought to the angiography suite prior to which a time-out was called for patient identification and site verification. Bilateral groins were prepped and draped in the standard surgical fashion. Under ultrasound guidance right common femoral was punctured with micro puncture needle and wire. Subsequently a precision 4 Singaporean sheath was then placed. Bentson wire was advanced to the level of the aorta. 4 Singaporean Flush catheter was brought up and parked at the level of the renal arteries. Aortogram was then undertaken. Catheter was brought down to the level of the iliac bifurcation. Iliacs were subsequently imaged. Catheter was then brought in up and over to the left side SFA. Runoff study was then undertaken. There appeared to be good runoff. The only significant finding was a question of a arterial venous fistula in the left groin. This did not appear to interfere with the patient's distal runoff. No intervention was indicated. Catheter wire sheath were removed. Direct pressure was held for 10 minutes. Patient tolerated the procedure well. Interpretation of films: 1. Ultrasound demonstrates appropriate femoral puncture. Image of which was saved. 2. Aortogram demonstrates appropriate caliber aorta. Minimal disease. Appropriate take-off of the renals. 3. Iliac images demonstrate no significant disease 4. Left Leg Common femoral artery: No significant disease but there is concern of a AV fistula at the common femoral as the venous vessels filled immediately Profundus Femoris: No significant disease Superficial femoral artery: No significant disease Popliteal artery (p1,p2,p3): No significant disease Anterior tibial artery: No significant disease in supplies the foot Peroneal artery: No significant disease Posterior tibial artery: No significant disease supplies the foot Dorsalis pedis/plantar arch: Nearly complete Conclusion: 1. Successful diagnostic angiogram no intervention indicated 2. Anticoagulation status: Resume regular anticoagulation This note is constructed using voice recognition software. While every effort has been made to ensure accuracy, personnel analyst errors may have been included. Thank you for allowing me to participate in the care of your patient. Yours sincerely, Luke Billings MD, FACS, R.P.V.I.
--- NOTE | 2023-02-09 15:06 | PM.PNNEP ---
Subjective Subjective Date of Service: 02/09/23 Interval history: Seen and examined, events noted Physical Exam Vital Signs: Vital Signs: Last Vital Signs Temp 98.5 F 02/09/23 13:35 Pulse 73 02/09/23 14:50 Resp 17 02/09/23 14:50 BP 145/64 H 02/09/23 14:50 Pulse Ox 99 02/09/23 14:50 O2 Del Method Room Air 02/09/23 14:50 BMI result Body Mass Index 29.2 Const: Other: General: AO X 3, no acute distress Resp: CTA bilateral CVS: S1,S2,RRR GI: +BS, NT, no distention Skin: left foot wound dressing in place Neuro: motor grossly intact Psych: appropriate affect General: cooperative, healthy appearing and no acute distress Orientation/consciousness: oriented to person, oriented to place and oriented to time HEENT: Head: Yes normal to inspection Neck: Carotids: no bruits Chest: Chest palpation & inspection: normal inspection of the chest Resp: Effort & Inspection: normal respiratory effort and able to speak in complete sentences Auscultation: clear to auscultation bilaterally Cardio: Rate: regular rate Heart sounds: S1 normal heart sound present and S2 normal heart sound present GI: Inspection: Yes normal to inspection Skin: Other: Left foot dressing clean dry intact General skin exam: no rashes or lesions noted Wounds: no wounds Neuro: General: oriented to person, oriented to place, oriented to time and CN's II-XI intact bilaterally Extrem: General: Yes normal to inspection, Yes full ROM and Yes no clubbing, cyanosis or edema Psych: Appearance: grossly normal and well kempt Speech and movement: Normal speech and movement present Affect: normal affect Objective Data Labs 02/06/23 05:19 02/09/23 06:13 Labs: Laboratory Results - last 24 hr 02/08/23 02/08/23 02/09/23 15:07 19:25 06:13 Creatinine 1.02 Estim Creat Clear Calc 83.0 Estimated GFR > 60 POC Glucose 315 H 304 H 02/09/23 02/09/23 07:28 11:35 Creatinine Estim Creat Clear Calc Estimated GFR POC Glucose 132 H 168 H Microbiology Microbiology Results: Microbiology 02/02/23 18:35 Blood - Venous Blood Culture - Final No growth after 5 days. 02/02/23 16:04 Blood - Venous Blood Culture - Final No growth after 5 days. Procedures Date of Service Date of Service: 02/09/23 Assessment & Plan Assessment and plan (1) Acute kidney injury: Status: Acute Plan 1. 57-year-old male with acute kidney injury.? Acute kidney injury, likely secondary to multifactorial reasons.? Clinically, might be slightly prerenal. He had infection in the foot with likely renal hypoperfusion associated with it.? The patient was on furosemide and hydrochlorothiazide which could have also induced renal insufficiency. 2. He was on human immunodeficiency viruses medication combination which had tenofovir, which is also a nephrotoxic agent.? We need to rule out obstruction. ?Renal function does not improve. 3. Chronic kidney disease stage 3 at baseline setting of longstanding diabetes and hypertension likely diabetic/hypertensive renal disease. 4. Diabetic foot infection with suspicion of osteomyelitis. 5. Type 2 diabetes mellitus. 6. Human immunodeficiency viruses positive status. 7. Hypertension. ? RECOMMENDATION:? Continue holding off on diuretic, Lasix and hydrochlorothiazide as pt may go for an angio ? I agree with holding off on metformin for now. ? Can restart HIV medication ? In regard to risk of contrast nephropathy, he is at high risk of contrast nephropathy, which include due to multiple reasons.? I recommend giving IV hydration normal saline at 1 mL/kg per hour for 8 hours to 12 pre and 8 hours to 12 hours post. Will sign Off Thx Time Spent With Patient Time: Total time managing care of this patient today ____ minutes. Progress Note: Quality Stroke Does the patient have a stroke diagnosis?: No
[2023-02-09] MEDS: Insulin Lispro 100 UNIT/ML 3 ML VIAL SUBCUT ×4 (17:17→21:04)
--- NOTE | 2023-02-09 17:41 | PC.NURSE ---
Pt back from angiogram without complications. Right groin incision with glue CDI, no bleeding or hematoma noted. Resumed diabetic diet. Good po intake. Missed 1 dose of Zosyn, spoke with pharmacy and advised to chart against dose and given next instead of rescheduling. Denies any pain. On room air, vital signs stable. Bed alarm on, safety maintained.
[2023-02-09] MEDS: QUEtiapine Fumarate 100 MG TABLET PO (18:29)
[2023-02-09 18:42] LABS: Vancomycin Trough 13.2 mcg/mL (10.0-20.0)
[2023-02-09] MEDS: vancomycin HCL 1,250 MG in 0.9 % Sodium Chloride 250 ML 166.67 MG IV (20:18)
[2023-02-09 20:37] LABS: Glucose, Whole Blood 378 mg/dL (60-115)
[2023-02-09] MEDS: Insulin Glargine,Hum.rec.anlog 100 UNIT/ML 10 ML VIAL 20 UNIT SUBCUT (21:04)
[2023-02-10 03:14] VITALS: BP 158/70; PULSE 69; RESP 18; TEMP 36.8; O2SAT 97
[2023-02-10 06:11] LABS: Creatinine Clr Calc Pharmacy 73.6; Estimated Glomerular Filt Rate > 60
[2023-02-10] MEDS: Piperacillin Sodium/Tazobactam 3.375 GM in 0.9 % Sodium Chloride 50 ML IV ×3 (06:20→17:48)
[2023-02-10 07:09] VITALS: BP 126/71; PULSE 70; RESP 20; TEMP 36.8; O2SAT 98
[2023-02-10 07:37] LABS: Glucose, Whole Blood 257 mg/dL (60-115)
[2023-02-10] MEDS: Insulin Lispro 100 UNIT/ML 3 ML VIAL SUBCUT ×8 (08:17→20:42)
[2023-02-10] MEDS: Cholecalciferol (Vitamin D3) 25 MCG TABLET 50 MCG PO (08:18)
[2023-02-10] MEDS: methADONE HCl 20 MG/2 ML ORAL.CONC 30 MG PO (08:18)
[2023-02-10] MEDS: Aspirin Enteric Coated 81 MG TABLET.DR PO (08:18)
[2023-02-10] MEDS: Metoprolol Succinate ER 100 MG TAB.ER.24H PO (08:18)
[2023-02-10] MEDS: Clopidogrel Bisulfate 75 MG TABLET PO (08:18)
[2023-02-10] MEDS: amLODIPine Besylate 5 MG TABLET PO (08:18)
[2023-02-10] MEDS: vancomycin HCL 1,250 MG in 0.9 % Sodium Chloride 250 ML 166.67 MG IV (08:19)
[2023-02-10] MEDS: Nicotine 21 MG PATCH.TD24 TRANSDERMA (08:19)
--- NOTE | 2023-02-10 09:25 | HO.VASCPN ---
Subjective Subjective Date of Service: 02/10/23 Patient reports: no new complaints and feels better Interval history: Patient is postop day 1 status post left lower extremity angiogram. He has had no interval issues. Reports that he is doing fairly well. Now for post angio follow-up. Physical Exam Vital Signs: Vital Signs: Last Vital Signs Temp 98.2 F 02/10/23 07:09 Pulse 70 02/10/23 07:09 Resp 20 02/10/23 07:09 BP 126/71 02/10/23 07:09 Pulse Ox 98 02/10/23 07:09 O2 Del Method Room Air 02/10/23 07:09 BMI result Body Mass Index 29.2 Const: General: cooperative, healthy appearing and no acute distress Orientation/consciousness: oriented to person, oriented to place and oriented to time HEENT: Head: Yes normal to inspection Neck: Carotids: no bruits Chest: Chest palpation & inspection: normal inspection of the chest Resp: Effort & Inspection: normal respiratory effort and able to speak in complete sentences Auscultation: clear to auscultation bilaterally Cardio: Rate: regular rate Heart sounds: S1 normal heart sound present and S2 normal heart sound present GI: Inspection: Yes normal to inspection Skin: Other: Left foot nonhealing ulcer - dressing clean dry intact General skin exam: no rashes or lesions noted Wounds: no wounds Neuro: General: oriented to person, oriented to place, oriented to time and CN's II-XI intact bilaterally Extrem: General: Yes normal to inspection, Yes full ROM and Yes no clubbing, cyanosis or edema Psych: Appearance: grossly normal and well kempt Speech and movement: Normal speech and movement present Affect: normal affect Progress Note: A&P Assessment and plan (1) PVD (peripheral vascular disease): Status: Acute Assessment and Plan: In short patient has a nonhealing left lower extremity ulcer from an arterial standpoint there appears to be adequate supply to heal the wound. There is an incidental finding of an AV fistula in the left groin. This can be addressed as an outpatient. Does not interfere with the patient's overall vascular status. General surgery is following in terms of the patient's wound status. Thank you for allowing us to assist in this patient's care. If there are any questions or concerns please do not hesitate to contact us. Time Spent With Patient Time: Total time managing care of this patient today ____ minutes. Procedures Date of Service Date of Service: 02/10/23 Quality Stroke Does the patient have a stroke diagnosis?: No VTE Prior VTE?: No VTE Risk Level:: Medical - moderate - high VTE Device Contraindication: N/A - Device Ordered VTE Drug Contraindication: N/A - Med Ordered
[2023-02-10 11:09] VITALS: BP 136/75; PULSE 73; RESP 20; TEMP 36.3; O2SAT 100
[2023-02-10 11:39] LABS: Glucose, Whole Blood 305 mg/dL (60-115)
--- NOTE | 2023-02-10 13:36 | PM.PNGS ---
Subjective Subjective Date of Service: 02/10/23 Interval history: no new complaints angiogram done yesterday by Dr. Billings - beatriz blood supply to left lower leg Physical Exam Vital Signs: Vital Signs: Last Vital Signs Temp 97.3 F 02/10/23 11:09 Pulse 73 02/10/23 11:09 Resp 20 02/10/23 11:09 BP 136/75 02/10/23 11:09 Pulse Ox 100 02/10/23 11:09 O2 Del Method Room Air 02/10/23 11:09 BMI result Body Mass Index 29.2 Const: General: comfortable and no acute distress Resp: Effort & Inspection: normal respiratory effort Cardio: Rate: regular rate Extrem: Other: open wound with large defect on left forefoot laterally, now with dry gangrene of the 4th toe; open wound otherwise clean Objective Data Active Medications Acetaminophen (Acetaminophen 325 Mg Tablet) 650 mg PO Q6H PRN PRN Reason: Pain, Mild (Pain Scale 1-3) Amlodipine Besylate (Amlodipine Besylate 5 Mg Tablet) 5 mg PO DAILY [facility]; Protocol Last Admin: 02/10/23 08:18 Dose: 5 mg Documented By: LEIA Aspirin (Aspirin Enteric Coated 81 Mg Tablet.) 81 mg PO DAILY [facility] Last Admin: 02/10/23 08:18 Dose: 81 mg Documented By: LEIA Clopidogrel Bisulfate (Clopidogrel Bisulfate 75 Mg Tablet) 75 mg PO DAILY [facility] Last Admin: 02/10/23 08:18 Dose: 75 mg Documented By: LEIA Dextrose (Dextrose 50 % 25 Gm/50 Ml Syringe) 25 gm IVPUSH Q15M PRN; Protocol PRN Reason: per Hypoglycemia Standing Ord. Glucose (Glucose Gel 15 Gm Gel..Gram.) 15 gm PO Q15M PRN; Protocol PRN Reason: per Hypoglycemia Standing Ord. Piperacillin Sod/Tazobactam (Sod 3.375 gm/ Sodium Chloride) 50 mls @ 100 mls/hr IV Q6H [facility] Last Infusion: 02/10/23 12:52 Dose: 0 mls/hr Documented By: LEIA Sodium Chloride (Ns) 1,000 mls @ 100 mls/hr IVCONT .Q10H [facility] Last Admin: 02/09/23 23:14 Dose: 100 mls/hr Documented By: MARISELA Vancomycin HCl 1,250 mg/ (Sodium Chloride) 250 mls @ 166.667 mls/hr IV Q12H [facility] Last Infusion: 02/10/23 10:05 Dose: 0 mls/hr Documented By: LEIA Insulin Glargine (Insulin Glargine,Hum.Rec.Anlog 100 Unit/Ml 10 Ml Vial) 20 unit SUBCUT BEDTIME [facility] Last Admin: 02/09/23 21:04 Dose: 20 unit Documented By: MARISELA Insulin Human Lispro (Insulin Lispro 100 Unit/Ml 3 Ml Vial) 0 unit SUBCUT QIDAS [facility]; Protocol Last Admin: 02/10/23 11:55 Dose: 8 unit Documented By: LEIA Insulin Human Lispro (Insulin Lispro 100 Unit/Ml 3 Ml Vial) 5 unit SUBCUT QIDAS [facility] Last Admin: 02/10/23 11:55 Dose: 5 unit Documented By: LEIA Magnesium Hydroxide (Milk Of Magnesia 30 Ml Oral.Susp) 30 ml PO DAILY PRN PRN Reason: Constipation Methadone HCl (Methadone Hcl 20 Mg/2 Ml Oral.Conc) 30 mg PO DAILY [facility] Last Admin: 02/10/23 08:18 Dose: 30 mg Documented By: LEIA Metoprolol Succinate (Metoprolol Succinate Er 100 Mg Tab.Er.24h) 100 mg PO DAILY [facility]; Protocol Last Admin: 02/10/23 08:18 Dose: 100 mg Documented By: LEIA Nicotine (Nicotine 21 Mg Patch.Td24) 21 mg TRANSDERMA DAILY [facility] Last Admin: 02/10/23 08:19 Dose: 21 mg Documented By: LEIA Pt Own (Emtricitab- Rilpivir-Tenofo Ala [Odefsey] 200-25-25 Mg Tablet) 1 tab PO DAILY@1200 [facility] Last Admin: 02/10/23 11:55 Dose: 1 tab Documented By: LEIA Pharmacy Consult (Consult Rx Perform Med Rec) 1 each MISCELLANE ONCE PRN PRN Reason: Consult order Pharmacy Consult (Consult Rx Vancomycin Dosing) 1 each MISCELLANE DAILY PRN PRN Reason: Consult order Polyethylene Glycol (Polyethylene Glycol 3350 17 Gm Powd.Pack) 17 gm PO DAILY PRN PRN Reason: Constipation Last Admin: 02/08/23 13:23 Dose: 17 gm Documented By: ESTHER Quetiapine Fumarate (Quetiapine Fumarate 100 Mg Tablet) 100 mg PO DAILY@1800 [facility] Last Admin: 02/09/23 18:29 Dose: 100 mg Documented By: ISIDRO Sodium Chloride (0.9 % Sodium Chloride Flush 3 Ml Syringe) 3 ml IVFLUSH QSHIFT [facility] Last Admin: 02/10/23 08:07 Dose: Not Given Documented By: LEIA Non-Admin Reason: IV Running Vitamin D (Cholecalciferol (Vitamin D3) 25 Mcg Tablet) 50 mcg PO DAILY [facility] Last Admin: 02/10/23 08:18 Dose: 50 mcg Documented By: LEIA Labs 02/06/23 05:19 02/10/23 05:26 Labs: Laboratory Results - last 24 hr 02/09/23 02/09/23 02/09/23 16:28 18:11 20:22 Estim Creat Clear Calc Estimated GFR POC Glucose 281 H 378 H* Vancomycin Trough 13.2 02/10/23 02/10/23 02/10/23 05:26 07:12 11:11 Estim Creat Clear Calc 73.6 Estimated GFR > 60 POC Glucose 257 H 305 H Vancomycin Trough Procedures Date of Service Date of Service: 02/10/23 Progress Note: A&P Assessment and plan (1) Gangrene of toe of left foot: Status: Acute Assessment and Plan: the 4th toe now has dry gangrene I told him that this will need to be amputated as this has demarcated well in view of the large soft tissue defect on the foot, he now says he would like to go ahead with BKA of the left I did explain to him that the open wound looks clean, and may take some time to reepithelialize completely he does not want to continue with intensive wound care for this open wound especially with dry gangrene of the 4th toe will schedule for BKA, left tomorrow (?) his sister Zoila was involved with discussion Time Spent With Patient Time: Total time managing care of this patient today ____ minutes. Quality Stroke Does the patient have a stroke diagnosis?: No VTE Prior VTE?: No VTE Risk Level:: Medical - moderate - high VTE Device Contraindication: N/A - Device Ordered VTE Drug Contraindication: N/A - Med Ordered
[2023-02-10] MEDS: 0.9 % Sodium Chloride 1,000 ML 100 ML IVCONT (14:19)
--- NOTE | 2023-02-10 14:31 | HO.PM.IMPN ---
Subjective Subjective Date of Service: 02/10/23 Interval History: follow-up on diabetic foot infection, osteomyelitis Review of Systems doing well, no new issues, s/p angiogram yesterday Physical Exam Vital Signs: Vital Signs: Last Vital Signs Temp 97.3 F 02/10/23 11:09 Pulse 73 02/10/23 11:09 Resp 20 02/10/23 11:09 BP 136/75 02/10/23 11:09 Pulse Ox 100 02/10/23 11:09 O2 Del Method Room Air 02/10/23 11:09 BMI result Body Mass Index 29.2 General: AO X 3, no acute distress Resp:? CTA bilateral CVS: S1,S2,RRR GI: +BS, NT, no distention Skin: left foot wound dressing in place Neuro:? motor grossly intact Psych: appropriate affect Objective Data Active Medications Acetaminophen (Acetaminophen 325 Mg Tablet) 650 mg PO Q6H PRN PRN Reason: Pain, Mild (Pain Scale 1-3) Amlodipine Besylate (Amlodipine Besylate 5 Mg Tablet) 5 mg PO DAILY [facility]; Protocol Last Admin: 02/10/23 08:18 Dose: 5 mg Documented By: DAVIDEMA Aspirin (Aspirin Enteric Coated 81 Mg Tablet.) 81 mg PO DAILY [facility] Last Admin: 02/10/23 08:18 Dose: 81 mg Documented By: LEIA Clopidogrel Bisulfate (Clopidogrel Bisulfate 75 Mg Tablet) 75 mg PO DAILY [facility] Last Admin: 02/10/23 08:18 Dose: 75 mg Documented By: DAVIDEMA Dextrose (Dextrose 50 % 25 Gm/50 Ml Syringe) 25 gm IVPUSH Q15M PRN; Protocol PRN Reason: per Hypoglycemia Standing Ord. Glucose (Glucose Gel 15 Gm Gel..Gram.) 15 gm PO Q15M PRN; Protocol PRN Reason: per Hypoglycemia Standing Ord. Piperacillin Sod/Tazobactam (Sod 3.375 gm/ Sodium Chloride) 50 mls @ 100 mls/hr IV Q6H [facility] Last Infusion: 02/10/23 12:52 Dose: 0 mls/hr Documented By: COTEMA Sodium Chloride (Ns) 1,000 mls @ 100 mls/hr IVCONT .Q10H [facility] Last Admin: 02/10/23 14:19 Dose: 100 mls/hr Documented By: DAVIDEMA Vancomycin HCl 1,250 mg/ (Sodium Chloride) 250 mls @ 166.667 mls/hr IV Q12H [facility] Last Infusion: 02/10/23 10:05 Dose: 0 mls/hr Documented By: LEIA Insulin Glargine (Insulin Glargine,Hum.Rec.Anlog 100 Unit/Ml 10 Ml Vial) 20 unit SUBCUT BEDTIME [facility] Last Admin: 02/09/23 21:04 Dose: 20 unit Documented By: MARISELA Insulin Human Lispro (Insulin Lispro 100 Unit/Ml 3 Ml Vial) 0 unit SUBCUT QIDAS [facility]; Protocol Last Admin: 02/10/23 11:55 Dose: 8 unit Documented By: LEIA Insulin Human Lispro (Insulin Lispro 100 Unit/Ml 3 Ml Vial) 5 unit SUBCUT QIDAS [facility] Last Admin: 02/10/23 11:55 Dose: 5 unit Documented By: LEIA Magnesium Hydroxide (Milk Of Magnesia 30 Ml Oral.Susp) 30 ml PO DAILY PRN PRN Reason: Constipation Methadone HCl (Methadone Hcl 20 Mg/2 Ml Oral.Conc) 30 mg PO DAILY [facility] Last Admin: 02/10/23 08:18 Dose: 30 mg Documented By: LEIA Metoprolol Succinate (Metoprolol Succinate Er 100 Mg Tab.Er.24h) 100 mg PO DAILY [facility]; Protocol Last Admin: 02/10/23 08:18 Dose: 100 mg Documented By: LEIA Nicotine (Nicotine 21 Mg Patch.Td24) 21 mg TRANSDERMA DAILY [facility] Last Admin: 02/10/23 08:19 Dose: 21 mg Documented By: LEIA Pt Own (Emtricitab- Rilpivir-Tenofo Ala [Odefsey] 200-25-25 Mg Tablet) 1 tab PO DAILY@1200 [facility] Last Admin: 02/10/23 11:55 Dose: 1 tab Documented By: LEIA Pharmacy Consult (Consult Rx Perform Med Rec) 1 each MISCELLANE ONCE PRN PRN Reason: Consult order Pharmacy Consult (Consult Rx Vancomycin Dosing) 1 each MISCELLANE DAILY PRN PRN Reason: Consult order Polyethylene Glycol (Polyethylene Glycol 3350 17 Gm Powd.Pack) 17 gm PO DAILY PRN PRN Reason: Constipation Last Admin: 02/08/23 13:23 Dose: 17 gm Documented By: ESTHER Quetiapine Fumarate (Quetiapine Fumarate 100 Mg Tablet) 100 mg PO DAILY@1800 [facility] Last Admin: 02/09/23 18:29 Dose: 100 mg Documented By: ISIDRO Sodium Chloride (0.9 % Sodium Chloride Flush 3 Ml Syringe) 3 ml IVFLUSH QSHIFT [facility] Last Admin: 02/10/23 08:07 Dose: Not Given Documented By: LEIA Non-Admin Reason: IV Running Vitamin D (Cholecalciferol (Vitamin D3) 25 Mcg Tablet) 50 mcg PO DAILY [facility] Last Admin: 02/10/23 08:18 Dose: 50 mcg Documented By: LEIA Labs 02/06/23 05:19 02/10/23 05:26 Labs: Laboratory Results - last 24 hr 02/09/23 02/09/23 02/09/23 16:28 18:11 20:22 Estim Creat Clear Calc Estimated GFR POC Glucose 281 H 378 H* Vancomycin Trough 13.2 02/10/23 02/10/23 02/10/23 05:26 07:12 11:11 Estim Creat Clear Calc 73.6 Estimated GFR > 60 POC Glucose 257 H 305 H Vancomycin Trough Assessment and Plan (1) Gangrene of toe of left foot: Status: Acute Plan 57-year-old male with history of diabetes, osteomyelitis who presents with a nonhealing left foot wound/5th toe . Sepsis secondary to nonhealing wound,/diabetic foot ulcer-suspected acute osteomyelitis--see pic (in ED note). s/p bedside debridment by Dr. Wahl and OR debridment 02/04? and probable will need definitive ampuation, he is open to BKA. s/p angiogram by Dr. Billings on today 02/09. continue IV Abx (Vanco and Zosyn since 02/02), cultures negative thus far PAD Continue home medications.? Vascular following, angiogram planed for 02/09 ?COLT:? on CKD, improving, continue IVF and monitor,? Cr better 1.9 to 1.02 today, Nephrology need no longer to follow DM--Lantus+SSI+5u pre-meal--FBS 106 ?HIV:?continue home medication Hypertension-- hold hydrochlorothiazide and Lasix in the setting of COLT Chronic anemia: s/p 1 unit RBC 02/02, H/H worse, transfused 2 units 02/05, H/H is better HypOnatremia:? Mild hypOnatremia possibly related to decreased p.o. intake, resolved DVT prophylaxis :? Chemoprophylaxis on hold because of anemia. compression device need for inpt: IV Abx? for sepsis, likely acute osteomylitis , s/p angiogram and need ?possibly surgery intervention Time Spent With Patient Time: Total time managing care of this patient today ____ minutes. Quality Stroke Does the patient have a stroke diagnosis?: No VTE Prior VTE?: No VTE Risk Level:: Medical - moderate - high VTE Device Contraindication: N/A - Device Ordered VTE Drug Contraindication: N/A - Med Ordered
[2023-02-10 15:05] VITALS: BP 149/75; PULSE 68; RESP 16; TEMP 36.3; O2SAT 99
[2023-02-10 16:36] LABS: Glucose, Whole Blood 324 mg/dL (60-115)
[2023-02-10] MEDS: QUEtiapine Fumarate 100 MG TABLET PO (17:48)
[2023-02-10 19:03] VITALS: BP 132/60; PULSE 69; RESP 16; TEMP 36.9; O2SAT 99
[2023-02-10 19:16] LABS: Vancomycin Trough 22.7 mcg/mL (10.0-20.0)
--- NOTE | 2023-02-10 19:36 | HE.PHANOTE ---
RE VANCO PT TROUGH WAS 22.7, WILL HOLD X1, AND REPEAT LEVEL IN AM. DOSE TO BE CHANGED BACK TO Q24H BOBBY
[2023-02-10 19:56] LABS: Glucose, Whole Blood 253 mg/dL (60-115)
[2023-02-10] MEDS: Insulin Glargine,Hum.rec.anlog 100 UNIT/ML 10 ML VIAL 20 UNIT SUBCUT (20:41)
[2023-02-11] VITALS (9 sets, daily range): BP systolic 121–162; BP diastolic 59–80; PULSE 65–74; RESP 16–76; TEMP 35.8–37.1; O2SAT 97–100
[2023-02-11] MEDS: Piperacillin Sodium/Tazobactam 3.375 GM in 0.9 % Sodium Chloride 50 ML IV ×4 (00:13→20:14)
[2023-02-11 06:14] LABS: Creatinine Clr Calc Pharmacy 86.4; Estimated Glomerular Filt Rate > 60
[2023-02-11 06:18] LABS: Vancomycin Random 17.5 mcg/mL (15-20)
--- NOTE | 2023-02-11 06:26 | HE.PHANOTE ---
RE: SAMIA Patients level came back at 17.5 down from 22.7, dose was held. Patients renal function also improved increasing patients crcl. Insight suggests that 1250 mg will be subtherapeutic, therefore going with one dose of 1500 mg before another level is taken to ensure patients level does not rise too high again. Will monitor renal. Predicted AUC 440.
[2023-02-11 07:47] LABS: Glucose, Whole Blood 149 mg/dL (60-115)
[2023-02-11] MEDS: Nicotine 21 MG PATCH.TD24 TRANSDERMA (08:27)
[2023-02-11] MEDS: methADONE HCl 20 MG/2 ML ORAL.CONC 30 MG PO (08:27)
[2023-02-11] MEDS: amLODIPine Besylate 5 MG TABLET PO (08:27)
[2023-02-11] MEDS: Metoprolol Succinate ER 100 MG TAB.ER.24H PO (08:27)
[2023-02-11] MEDS: vancomycin HCL 1,500 MG in 0.9 % Sodium Chloride 500 ML 333.33 MG IV (08:32)
[2023-02-11 10:13] LABS: Hematocrit 26.4 % (42.0-52.0); Mean Corpuscular HGB Conc 34.1 g/dl (31.0-36.0); Mean Corpuscular Hemoglobin 30.9 pg (27.0-33.0); Mean Corpuscular Volume 90.7 fL (80.0-98.0); Platelet Count 146 X10*3/uL (160-400); Red Blood Count 2.91 X10*6/uL (4.60-5.80); Red Cell Distribution Width 12.5 % (11.0-16.0)
--- NOTE | 2023-02-11 10:20 | MHC.CM.PN ---
Per MD in [facility], Patient is not yet medically cleared for dc (amp today); Patient will need a PT eval to then assist with disposition.Should STR be necessary, Patient's SNF choice will be limited r/t Methadone. CM will follow.
[2023-02-11 10:41] LABS: MANUAL DIFF FLAG NO
[2023-02-11 10:46] LABS: Basophils Absolute Auto 0.1 X10*3/uL (0.0-0.2); Basophils Percent Auto 0.9 % (0-2); Eosinophils Absolute Auto 0.2 X10*3/uL (0.0-0.4); Eosinophils Percent Auto 2.5 % (0-4); Imm Gran Abs Auto 0.02 X10*3/uL (0.00-0.03); Imm Gran Pct Auto 0.3 % (0.0-0.4); Lymphocytes Absolute Auto 1.7 X10*3/uL (1.2-4.9); Monocytes Absolute Auto 0.4 X10*3/uL (0.1-1.2); Monocytes Percent Auto 4.8 % (2-11); Neutrophils Absolute Auto 5.5 x10*3/uL (2.0-8.3); Neutrophils Percent Auto 69.5 % (45-73)
--- NOTE | 2023-02-11 11:13 | PC.NURSE ---
patient only had a 22g left forearm and inserted a new 20g right ac iv. attempted once.
--- NOTE | 2023-02-11 12:13 | P.CONAN_ITS ---
HPI - Anesthesia Eval Consult details Narrative: Left foot gangreene PMFSH Active Problems Active Problems: All Active Problems (Updated 02/10/23 @ 13:39 by Doug Wahl MD) Gangrene of toe of left foot (Acute) Gangrene of left foot (Acute) Cellulitis (Acute) Sepsis (Acute) Anemia of chronic disease (Acute) Charcot foot due to diabetes mellitus (Acute) PAD (peripheral artery disease) (Acute) Osteomyelitis (Acute) Toe ulcer (Acute) Right leg swelling (Acute) Leukocytosis (Acute) Non-healing wound (Acute) Acute kidney injury (Acute) H/O skin graft (Acute) Hypertension (Acute) Hyperlipidemia (Acute) Hx of drug dependence (Acute) Hepatitis (Acute) GERD (gastroesophageal reflux disease) (Acute) Diabetes (Acute) Depression (Acute) COVID-19 vaccine administered (Acute) Cirrhosis (Acute) Diabetic foot ulcer (Acute) PVD (peripheral vascular disease) (Acute) Osteomyelitis (Acute) HIV (human immunodeficiency virus infection) (Acute) Past Medical History Medical History (Updated 02/10/23 @ 13:39 by Doug Wahl MD) Cirrhosis COVID-19 vaccine administered Depression Diabetes Gangrene of left foot Gangrene of toe of left foot GERD (gastroesophageal reflux disease) Hepatitis History of hyperbaric oxygen therapy HIV (human immunodeficiency virus infection) Hx of drug dependence Hyperlipidemia Hypertension Osteomyelitis Toe ulcer Family History Family History Father Diabetes HTN (hypertension) Mother HTN (hypertension) Daughter No problems noted. Family history of problems with anesthesia: No Surgical History Surgical History H/O skin graft S/P angiogram of extremity Status post debridement History of Problems with Anesthesia: No Social History Social History Household Members: Family Housing: House Are you a primary wound care nurse to a significant other at home: No Do you presently have visiting nurse or other home services: Yes Alcohol intake: never Patient Tobacco Use Status: Current everyday Tobacco user Tobacco use type: Cigarette Cigarette Packs Per Day: 0 Cigarettes Per Day: 10 Years Smoked: 35 Smoked in Last 30 Days: Yes e-Cigarette/Vaping Use: Never Used Patient Interested in Nicotine Replacement: No Patient Given Instructions on How to Stop Smoking: No Second Hand Smoke Exposure: No Use of substances other than those prescribed or required for medical reasons: No Substance Use Type: Former Substance User and Heroin Currently Displaying Signs/Symptoms of Drug Intoxication Withdrawal: No Have you been hit, kicked, punched, or otherwise hurt by someone within the past year? If so, by whom?: No Are you DNR?: No Advance Directives: Yes Advance Directives Information Provided: No Advance Directives on File: Yes Advance Directives Date on File: 03/13/21 Do you have thoughts of harming others: None Do you have a plan to hurt others: No Plan Recently lost weight without trying: Unsure Nutrition Risks: No Nutritional Risk service: No Current occupational status: disabled Meds Allergies Allergy/AdvReac Type Severity Reaction Status Date / Time trazodone [TRAZODONE] Allergy Unknown UNKNOWN Verified 01/20/23 13:17 Active Medications: Current Medications Acetaminophen (Acetaminophen 325 Mg Tablet) 650 mg PO Q6H PRN PRN Reason: Pain, Mild (Pain Scale 1-3) Amlodipine Besylate (Amlodipine Besylate 5 Mg Tablet) 5 mg PO DAILY [facility]; Protocol Last Admin: 02/11/23 08:27 Dose: 5 mg Aspirin (Aspirin Enteric Coated 81 Mg Tablet.Dr) 81 mg PO DAILY [facility] Last Admin: 02/11/23 07:50 Dose: Not Given Clopidogrel Bisulfate (Clopidogrel Bisulfate 75 Mg Tablet) 75 mg PO DAILY [facility] Last Admin: 02/11/23 07:50 Dose: Not Given Dextrose (Dextrose 50 % 25 Gm/50 Ml Syringe) 25 gm IVPUSH Q15M PRN; Protocol PRN Reason: per Hypoglycemia Standing Ord. Glucose (Glucose Gel 15 Gm Gel..Gram.) 15 gm PO Q15M PRN; Protocol PRN Reason: per Hypoglycemia Standing Ord. Piperacillin Sod/Tazobactam (Sod 3.375 gm/ Sodium Chloride) 50 mls @ 100 mls/hr IV Q6H [facility] Last Infusion: 02/11/23 06:36 Dose: Infused Vancomycin HCl 1,500 mg/ (Sodium Chloride) 500 mls @ 333.333 mls/hr IV Q24H [facility] Last Infusion: 02/11/23 10:06 Dose: Infused Insulin Glargine (Insulin Glargine,Hum.Rec.Anlog 100 Unit/Ml 10 Ml Vial) 20 unit SUBCUT BEDTIME [facility] Last Admin: 02/10/23 20:41 Dose: 20 unit Insulin Human Lispro (Insulin Lispro 100 Unit/Ml 3 Ml Vial) 0 unit SUBCUT QIDACHS [facility]; Protocol Last Admin: 02/11/23 11:26 Dose: Not Given Insulin Human Lispro (Insulin Lispro 100 Unit/Ml 3 Ml Vial) 5 unit SUBCUT QIDACHS [facility] Last Admin: 02/11/23 11:27 Dose: Not Given Magnesium Hydroxide (Milk Of Magnesia 30 Ml Oral.Susp) 30 ml PO DAILY PRN PRN Reason: Constipation Methadone HCl (Methadone Hcl 20 Mg/2 Ml Oral.Conc) 30 mg PO DAILY [facility] Last Admin: 02/11/23 08:27 Dose: 30 mg Metoprolol Succinate (Metoprolol Succinate Er 100 Mg Tab.Er.24h) 100 mg PO DAILY [facility]; Protocol Last Admin: 02/11/23 08:27 Dose: 100 mg Nicotine (Nicotine 21 Mg Patch.Td24) 21 mg TRANSDERMA DAILY [facility] Last Admin: 02/11/23 08:27 Dose: 21 mg Pt Own (Emtricitab- Rilpivir-Tenofo Ala [Odefsey] 200-25-25 Mg Tablet) 1 tab PO DAILY@1200 [facility] Last Admin: 02/10/23 11:55 Dose: 1 tab Pharmacy Consult (Consult Rx Perform Med Rec) 1 each MISCELLANE ONCE PRN PRN Reason: Consult order Pharmacy Consult (Consult Rx Vancomycin Dosing) 1 each MISCELLANE DAILY PRN PRN Reason: Consult order Polyethylene Glycol (Polyethylene Glycol 3350 17 Gm Powd.Pack) 17 gm PO DAILY PRN PRN Reason: Constipation Last Admin: 02/08/23 13:23 Dose: 17 gm Quetiapine Fumarate (Quetiapine Fumarate 100 Mg Tablet) 100 mg PO DAILY@1800 [facility] Last Admin: 02/10/23 17:48 Dose: 100 mg Sodium Chloride (0.9 % Sodium Chloride Flush 3 Ml Syringe) 3 ml IVFLUSH QSHIFT [facility] Last Admin: 02/11/23 07:15 Dose: Not Given Vitamin D (Cholecalciferol (Vitamin D3) 25 Mcg Tablet) 50 mcg PO DAILY [facility] Last Admin: 02/10/23 08:18 Dose: 50 mcg Home Medications Medication Instructions Recorded Confirmed Last Taken Type aspirin 81 mg tablet,delayed 81 mg PO DAILY 08/08/20 02/02/23 02/02/23 History release blood sugar diagnostic #10 ea 08/08/20 10/16/20 Unknown History cholecalciferol (vitamin D3) 50 50 mcg PO DAILY 08/08/20 02/02/23 02/02/23 History mcg (2,000 unit) tablet dulaglutide 1.5 mg/0.5 mL 1.5 mg subcut FR 08/08/20 02/02/23 04/18/21 History subcutaneous pen injector furosemide 20 mg tablet 20 mg PO DAILY PRN swelling 08/08/20 02/02/23 Unknown History hydrochlorothiazide 25 mg tablet 25 mg PO DAILY 08/08/20 02/02/23 02/02/23 History insulin syringe-needle U-100 1 mL #10 ea 08/08/20 10/16/20 Unknown History 29 gauge x 1/2 metoprolol succinate 100 mg 100 mg PO DAILY 08/08/20 02/02/23 02/02/23 History tablet,extended release 24 hr quetiapine 100 mg tablet 100 mg PO DAILY@1800 08/08/20 02/08/23 02/01/23 History lancets 33 gauge #100 ea 11/08/20 Unknown History metformin 500 mg tablet,extended 1,000 mg PO BID 11/08/20 02/02/23 02/02/23 History release 24 hr pen needle, diabetic 32 gauge x #50 ea 11/08/20 Unknown History methadone 10 mg/mL oral concentrate 30 mg PO DAILY 11/12/20 03/13/21 04/22/21 10:30 History emtricitabine 200 mg-rilpivirine 1 tab PO DAILY 12/05/20 02/02/23 02/02/23 History 25 mg-tenofovir alafenam 25 mg tablet (Bryan) insulin aspart U-100 100 unit/mL 10 - 20 unit subcut TIDWM 12/05/20 02/02/23 02/02/23 History (3 mL) subcutaneous pen (Novolog FlexPen U-100 Insulin aspart) insulin degludec 100 unit/mL (3 30 unit subcut BEDTIME 04/22/21 02/02/23 02/01/23 History mL) subcutaneous pen (Tresiba FlexTouch U-100 insulin) amlodipine 5 mg tablet 5 mg PO DAILY 02/02/23 02/02/23 02/02/23 History nicotine 10 mg inhalation 1 inh inhalation Q4H PRN CRAvings 02/02/23 02/02/23 Unknown History cartridge (Nicotrol) nicotine 21 mg/24 hr daily 1 patch topical DAILY 02/02/23 02/02/23 Unknown History transdermal patch rosuvastatin 20 mg tablet 20 mg PO BEDTIME 02/02/23 02/02/23 02/01/23 History Exam Exam Date and Time: February 11, 2023 1213 Height,Weight and Vital Signs: Height 5 ft 7 in Weight 84.5 kg Last Vital Signs Temp 98.4 F 02/11/23 10:58 Pulse 74 02/11/23 10:58 Resp 16 02/11/23 10:58 BP 162/76 H 02/11/23 10:58 Pulse Ox 100 02/11/23 10:58 O2 Del Method Room Air 02/11/23 10:58 Pertinent Lab Results Pertinent Lab Results: Laboratory Tests 02/02/23 02/02/23 02/02/23 16:04 16:05 16:05 WBC 20.2 H RBC 2.27 L Hgb 7.3 L Hct 20.9 L* MCV 92.1 MCH 32.2 MCHC 34.9 RDW 12.0 Plt Count 257 MPV 11.0 Immature Gran % (Auto) 0.9 H Neut % (Auto) 82.9 H Lymph % (Auto) 9.6 L [place] % (Auto) 5.6 Eos % (Auto) 0.6 Baso % (Auto) 0.4 Lymph # (Auto) 1.9 Hemphill # (Auto) 1.1 Eos # (Auto) 0.1 Baso # (Auto) 0.1 Abs Immat Gran (auto) 0.18 H Absolute Neuts (auto) 16.7 H Absolute Nucleated RBC 0.000 Nucleated RBC % (auto) 0.0 Smear Path Review ESR > 140 H Sodium Potassium Chloride Carbon Dioxide Anion Gap BUN Creatinine Estim Creat Clear Calc Estimated GFR POC Glucose Random Glucose Estimat Average Glucose Hemoglobin A1c % Lactic Acid 2.4 H* Lactic Acid F/U @ 2Hr Lactic Acid F/U @ 4Hr Calcium Magnesium Total Bilirubin AST ALT Alkaline Phosphatase C-Reactive Protein Total Protein Albumin Urine Color Urine Appearance Urine pH Ur Specific Chancellor Urine Protein Urine Glucose (UA) Urine Ketones Urine Blood Urine Nitrite Ur Leukocyte Esterase Urine RBC Urine WBC Ur Squamous Epith Cells Urine Bacteria Hyaline Casts U Random Total Protein Ur Random Sodium Urine Creatinine Vancomycin Trough Random Vancomycin Blood Type Antibody Screen Crossmatch 02/02/23 02/02/23 02/02/23 16:05 18:34 18:59 WBC RBC Hgb Hct MCV MCH MCHC RDW Plt Count MPV Immature Gran % (Auto) Neut % (Auto) Lymph % (Auto) Hemphill % (Auto) Eos % (Auto) Baso % (Auto) Lymph # (Auto) Hem[place]ill # (Auto) Eos # (Auto) Baso # (Auto) Abs Immat Gran (auto) Absolute Neuts (auto) Absolute Nucleated RBC Nucleated RBC % (auto) Smear Path Review ESR Sodium 128 L Potassium 4.0 Chloride 97 Carbon Dioxide 20 L Anion Gap 15 BUN 36 H Creatinine 2.09 H Estim Creat Clear Calc 39.8 Estimated GFR 33 POC Glucose Random Glucose 295 H Estimat Average Glucose Hemoglobin A1c % Lactic Acid Lactic Acid F/U @ 2Hr 2.3 H* Lactic Acid F/U @ 4Hr Calcium 9.1 Magnesium Total Bilirubin 0.5 AST 38 H ALT 30 Alkaline Phosphatase 139 H C-Reactive Protein 13.97 H Total Protein 8.3 H Albumin 3.4 L Urine Color Urine Appearance Urine pH Ur Specific Chancellor Urine Protein Urine Glucose (UA) Urine Ketones Urine Blood Urine Nitrite Ur Leukocyte Esterase Urine RBC Urine WBC Ur Squamous Epith Cells Urine Bacteria Hyaline Casts U Random Total Protein Ur Random Sodium Urine Creatinine Vancomycin Trough Random Vancomycin Blood Type A Negative Antibody Screen NEGATIVE Crossmatch See Detail 02/02/23 02/02/23 02/03/23 20:25 21:22 01:42 WBC RBC Hgb Hct MCV MCH MCHC RDW Plt Count MPV Immature Gran % (Auto) Neut % (Auto) Lymph % (Auto) Hemphill % (Auto) Eos % (Auto) Baso % (Auto) Lymph # (Auto) Hemphill # (Auto) Eos # (Auto) Baso # (Auto) Abs Immat Gran (auto) Absolute Neuts (auto) Absolute Nucleated RBC Nucleated RBC % (auto) Smear Path Review ESR Sodium Potassium Chloride Carbon Dioxide Anion Gap BUN Creatinine Estim Creat Clear Calc Estimated GFR POC Glucose 224 H Random Glucose Estimat Average Glucose Hemoglobin A1c % Lactic Acid Lactic Acid F/U @ 2Hr Lactic Acid F/U @ 4Hr 1.6 Calcium Magnesium Total Bilirubin AST ALT Alkaline Phosphatase C-Reactive Protein Total Protein Albumin Urine Color Yellow Urine Appearance Cloudy Urine pH 5.5 Ur Specific Chancellor <= 1.005 Urine Protein 100 (2+) H Urine Glucose (UA) Negative Urine Ketones Negative Urine Blood Trace H Urine Nitrite Negative Ur Leukocyte Esterase Negative Urine RBC 0-2 Urine WBC 0-5 Ur Squamous Epith Cells 0-2 Urine Bacteria None Seen Hyaline Casts 3-5 U Random Total Protein Ur Random Sodium Urine Creatinine Vancomycin Trough Random Vancomycin Blood Type Antibody Screen Crossmatch 02/03/23 02/03/23 02/03/23 05:45 05:45 05:45 WBC 14.2 H RBC 2.30 L Hgb 7.2 L Hct 21.2 L MCV 92.2 MCH 31.3 MCHC 34.0 RDW 13.1 Plt Count 198 MPV 11.5 Immature Gran % (Auto) Neut % (Auto) Lymph % (Auto) Hemphill % (Auto) Eos % (Auto) Baso % (Auto) Lymph # (Auto) Hemphill # (Auto) Eos # (Auto) Baso # (Auto) Abs Immat Gran (auto) Absolute Neuts (auto) Absolute Nucleated RBC 0.000 Nucleated RBC % (auto) 0.0 Smear Path Review ESR Sodium 135 Potassium 4.4 Chloride 106 Carbon Dioxide 18 L Anion Gap 15 BUN 33 H Creatinine 1.91 H Estim Creat Clear Calc 44.3 Estimated GFR 36 POC Glucose Random Glucose 302 H Estimat Average Glucose 206 Hemoglobin A1c % 8.8 Lactic Acid Lactic Acid F/U @ 2Hr Lactic Acid F/U @ 4Hr Calcium 8.4 D Magnesium Total Bilirubin AST ALT Alkaline Phosphatase C-Reactive Protein Total Protein Albumin Urine Color Urine Appearance Urine pH Ur Specific Chancellor Urine Protein Urine Glucose (UA) Urine Ketones Urine Blood Urine Nitrite Ur Leukocyte Esterase Urine RBC Urine WBC Ur Squamous Epith Cells Urine Bacteria Hyaline Casts U Random Total Protein Ur Random Sodium Urine Creatinine Vancomycin Trough Random Vancomycin Blood Type Antibody Screen Crossmatch 02/03/23 02/03/23 02/03/23 07:44 10:54 15:55 WBC RBC Hgb Hct MCV MCH MCHC RDW Plt Count MPV Immature Gran % (Auto) Neut % (Auto) Lymph % (Auto) Hemphill % (Auto) Eos % (Auto) Baso % (Auto) Lymph # (Auto) Hemphill # (Auto) Eos # (Auto) Baso # (Auto) Abs Immat Gran (auto) Absolute Neuts (auto) Absolute Nucleated RBC Nucleated RBC % (auto) Smear Path Review ESR Sodium Potassium Chloride Carbon Dioxide Anion Gap BUN Creatinine Estim Creat Clear Calc Estimated GFR POC Glucose 298 H 395 H* 443 H* Random Glucose Estimat Average Glucose Hemoglobin A1c % Lactic Acid Lactic Acid F/U @ 2Hr Lactic Acid F/U @ 4Hr Calcium Magnesium Total Bilirubin AST ALT Alkaline Phosphatase C-Reactive Protein Total Protein Albumin Urine Color Urine Appearance Urine pH Ur Specific Chancellor Urine Protein Urine Glucose (UA) Urine Ketones Urine Blood Urine Nitrite Ur Leukocyte Esterase Urine RBC Urine WBC Ur Squamous Epith Cells Urine Bacteria Hyaline Casts U Random Total Protein Ur Random Sodium Urine Creatinine Vancomycin Trough Random Vancomycin Blood Type Antibody Screen Crossmatch 02/03/23 02/04/23 02/04/23 20:09 05:31 07:26 WBC RBC Hgb Hct MCV MCH MCHC RDW Plt Count MPV Immature Gran % (Auto) Neut % (Auto) Lymph % (Auto) Hemphill % (Auto) Eos % (Auto) Baso % (Auto) Lymph # (Auto) Hemphill # (Auto) Eos # (Auto) Baso # (Auto) Abs Immat Gran (auto) Absolute Neuts (auto) Absolute Nucleated RBC Nucleated RBC % (auto) Smear Path Review ESR Sodium Potassium Chloride Carbon Dioxide Anion Gap BUN Creatinine 1.92 H Estim Creat Clear Calc 44.1 Estimated GFR 36 POC Glucose 434 H* 307 H Random Glucose Estimat Average Glucose Hemoglobin A1c % Lactic Acid Lactic Acid F/U @ 2Hr Lactic Acid F/U @ 4Hr Calcium Magnesium Total Bilirubin AST ALT Alkaline Phosphatase C-Reactive Protein Total Protein Albumin Urine Color Urine Appearance Urine pH Ur Specific Chancellor Urine Protein Urine Glucose (UA) Urine Ketones Urine Blood Urine Nitrite Ur Leukocyte Esterase Urine RBC Urine WBC Ur Squamous Epith Cells Urine Bacteria Hyaline Casts U Random Total Protein Ur Random Sodium Urine Creatinine Vancomycin Trough Random Vancomycin Blood Type Antibody Screen Crossmatch 02/04/23 02/04/23 02/04/23 09:56 11:38 12:14 WBC RBC Hgb Hct MCV MCH MCHC RDW Plt Count MPV Immature Gran % (Auto) Neut % (Auto) Lymph % (Auto) Hemph[place] % (Auto) Eos % (Auto) Baso % (Auto) Lymph # (Auto) [place] # (Auto) Eos # (Auto) Baso # (Auto) Abs Immat Gran (auto) Absolute Neuts (auto) Absolute Nucleated RBC Nucleated RBC % (auto) Smear Path Review ESR Sodium Potassium Chloride Carbon Dioxide Anion Gap BUN Creatinine Estim Creat Clear Calc Estimated GFR POC Glucose 312 H 278 H 279 H Random Glucose Estimat Average Glucose Hemoglobin A1c % Lactic Acid Lactic Acid F/U @ 2Hr Lactic Acid F/U @ 4Hr Calcium Magnesium Total Bilirubin AST ALT Alkaline Phosphatase C-Reactive Protein Total Protein Albumin Urine Color Urine Appearance Urine pH Ur Specific Chancellor Urine Protein Urine Glucose (UA) Urine Ketones Urine Blood Urine Nitrite Ur Leukocyte Esterase Urine RBC Urine WBC Ur Squamous Epith Cells Urine Bacteria Hyaline Casts U Random Total Protein Ur Random Sodium Urine Creatinine Vancomycin Trough Random Vancomycin Blood Type Antibody Screen Crossmatch 02/04/23 02/04/23 02/04/23 16:06 17:39 19:46 WBC RBC Hgb Hct MCV MCH MCHC RDW Plt Count MPV Immature Gran % (Auto) Neut % (Auto) Lymph % (Auto) [place] % (Auto) Eos % (Auto) Baso % (Auto) Lymph # (Auto) [place] # (Auto) Eos # (Auto) Baso # (Auto) Abs Immat Gran (auto) Absolute Neuts (auto) Absolute Nucleated RBC Nucleated RBC % (auto) Smear Path Review ESR Sodium Potassium Chloride Carbon Dioxide Anion Gap BUN Creatinine Estim Creat Clear Calc Estimated GFR POC Glucose 334 H 379 H* Random Glucose Estimat Average Glucose Hemoglobin A1c % Lactic Acid Lactic Acid F/U @ 2Hr Lactic Acid F/U @ 4Hr Calcium Magnesium Total Bilirubin AST ALT Alkaline Phosphatase C-Reactive Protein Total Protein Albumin Urine Color Urine Appearance Urine pH Ur Specific Chancellor Urine Protein Urine Glucose (UA) Urine Ketones Urine Blood Urine Nitrite Ur Leukocyte Esterase Urine RBC Urine WBC Ur Squamous Epith Cells Urine Bacteria Hyaline Casts U Random Total Protein Ur Random Sodium Urine Creatinine Vancomycin Trough Random Vancomycin 12.9 L Blood Type Antibody Screen Crossmatch 02/05/23 02/05/23 02/05/23 06:00 06:00 07:23 WBC 10.5 RBC 2.27 L Hgb 7.0 L* Hct 20.4 L* MCV 89.9 MCH 30.8 MCHC 34.3 RDW 13.2 Plt Count 184 MPV 11.3 Immature Gran % (Auto) Neut % (Auto) Lymph % (Auto) [place] % (Auto) Eos % (Auto) Baso % (Auto) Lymph # (Auto) [place] # (Auto) Eos # (Auto) Baso # (Auto) Abs Immat Gran (auto) Absolute Neuts (auto) Absolute Nucleated RBC 0.000 Nucleated RBC % (auto) 0.0 Smear Path Review SEE NOTE ESR Sodium 141 Potassium 3.6 Chloride 112 H Carbon Dioxide 20 L Anion Gap 13 BUN 24 H Creatinine 1.58 H Estim Creat Clear Calc 53.5 Estimated GFR 45 POC Glucose 298 H Random Glucose 297 H Estimat Average Glucose Hemoglobin A1c % Lactic Acid Lactic Acid F/U @ 2Hr Lactic Acid F/U @ 4Hr Calcium 8.8 Magnesium Total Bilirubin AST ALT Alkaline Phosphatase C-Reactive Protein Total Protein Albumin Urine Color Urine Appearance Urine pH Ur Specific Chancellor Urine Protein Urine Glucose (UA) Urine Ketones Urine Blood Urine Nitrite Ur Leukocyte Esterase Urine RBC Urine WBC Ur Squamous Epith Cells Urine Bacteria Hyaline Casts U Random Total Protein Ur Random Sodium Urine Creatinine Vancomycin Trough Random Vancomycin Blood Type Antibody Screen Crossmatch 02/05/23 02/05/23 02/05/23 09:01 11:05 16:04 WBC RBC Hgb Hct MCV MCH MCHC RDW Plt Count MPV Immature Gran % (Auto) Neut % (Auto) Lymph % (Auto) [place] % (Auto) Eos % (Auto) Baso % (Auto) Lymph # (Auto) [place] # (Auto) Eos # (Auto) Baso # (Auto) Abs Immat Gran (auto) Absolute Neuts (auto) Absolute Nucleated RBC Nucleated RBC % (auto) Smear Path Review ESR Sodium Potassium Chloride Carbon Dioxide Anion Gap BUN Creatinine Estim Creat Clear Calc Estimated GFR POC Glucose 369 H* 365 H* Random Glucose Estimat Average Glucose Hemoglobin A1c % Lactic Acid Lactic Acid F/U @ 2Hr Lactic Acid F/U @ 4Hr Calcium Magnesium Total Bilirubin AST ALT Alkaline Phosphatase C-Reactive Protein Total Protein Albumin Urine Color Urine Appearance Urine pH Ur Specific Chancellor Urine Protein Urine Glucose (UA) Urine Ketones Urine Blood Urine Nitrite Ur Leukocyte Esterase Urine RBC Urine WBC Ur Squamous Epith Cells Urine Bacteria Hyaline Casts U Random Total Protein 50 H Ur Random Sodium 132.0 Urine Creatinine 32.84 Vancomycin Trough Random Vancomycin Blood Type Antibody Screen Crossmatch 02/05/23 02/05/23 02/06/23 17:16 19:49 05:19 WBC 9.4 RBC 2.95 L D Hgb 9.0 L D Hct 26.4 L D MCV 89.5 MCH 30.5 MCHC 34.1 RDW 13.1 Plt Count 171 MPV 10.8 Immature Gran % (Auto) Neut % (Auto) Lymph % (Auto) [place] % (Auto) Eos % (Auto) Baso % (Auto) Lymph # (Auto) [place] # (Auto) Eos # (Auto) Baso # (Auto) Abs Immat Gran (auto) Absolute Neuts (auto) Absolute Nucleated RBC 0.000 Nucleated RBC % (auto) 0.0 Smear Path Review ESR Sodium Potassium Chloride Carbon Dioxide Anion Gap BUN Creatinine Estim Creat Clear Calc Estimated GFR POC Glucose 381 H* Random Glucose Estimat Average Glucose Hemoglobin A1c % Lactic Acid Lactic Acid F/U @ 2Hr Lactic Acid F/U @ 4Hr Calcium Magnesium Total Bilirubin AST ALT Alkaline Phosphatase C-Reactive Protein Total Protein Albumin Urine Color Urine Appearance Urine pH Ur Specific Chancellor Urine Protein Urine Glucose (UA) Urine Ketones Urine Blood Urine Nitrite Ur Leukocyte Esterase Urine RBC Urine WBC Ur Squamous Epith Cells Urine Bacteria Hyaline Casts U Random Total Protein Ur Random Sodium Urine Creatinine Vancomycin Trough Random Vancomycin 12.8 L Blood Type Antibody Screen Crossmatch 02/06/23 02/06/23 02/06/23 05:19 07:20 11:15 WBC RBC Hgb Hct MCV MCH MCHC RDW Plt Count MPV Immature Gran % (Auto) Neut % (Auto) Lymph % (Auto) [place] % (Auto) Eos % (Auto) Baso % (Auto) Lymph # (Auto) [place] # (Auto) Eos # (Auto) Baso # (Auto) Abs Immat Gran (auto) Absolute Neuts (auto) Absolute Nucleated RBC Nucleated RBC % (auto) Smear Path Review ESR Sodium Potassium Chloride Carbon Dioxide Anion Gap BUN Creatinine 1.28 Estim Creat Clear Calc 66.1 Estimated GFR 58 POC Glucose 228 H 289 H Random Glucose Estimat Average Glucose Hemoglobin A1c % Lactic Acid Lactic Acid F/U @ 2Hr Lactic Acid F/U @ 4Hr Calcium Magnesium Total Bilirubin AST ALT Alkaline Phosphatase C-Reactive Protein Total Protein Albumin Urine Color Urine Appearance Urine pH Ur Specific Chancellor Urine Protein Urine Glucose (UA) Urine Ketones Urine Blood Urine Nitrite Ur Leukocyte Esterase Urine RBC Urine WBC Ur Squamous Epith Cells Urine Bacteria Hyaline Casts U Random Total Protein Ur Random Sodium Urine Creatinine Vancomycin Trough Random Vancomycin Blood Type Antibody Screen Crossmatch 02/06/23 02/06/2323 16:13 19:22 06:14 WBC RBC Hgb Hct MCV MCH MCHC RDW Plt Count MPV Immature Gran % (Auto) Neut % (Auto) Lymph % (Auto) [place] % (Auto) Eos % (Auto) Baso % (Auto) Lymph # (Auto) [place] # (Auto) Eos # (Auto) Baso # (Auto) Abs Immat Gran (auto) Absolute Neuts (auto) Absolute Nucleated RBC Nucleated RBC % (auto) Smear Path Review ESR Sodium Potassium Chloride Carbon Dioxide Anion Gap BUN Creatinine 1.15 Estim Creat Clear Calc 73.6 Estimated GFR > 60 POC Glucose 394 H* 387 H* Random Glucose Estimat Average Glucose Hemoglobin A1c % Lactic Acid Lactic Acid F/U @ 2Hr Lactic Acid F/U @ 4Hr Calcium Magnesium Total Bilirubin AST ALT Alkaline Phosphatase C-Reactive Protein Total Protein Albumin Urine Color Urine Appearance Urine pH Ur Specific Chancellor Urine Protein Urine Glucose (UA) Urine Ketones Urine Blood Urine Nitrite Ur Leukocyte Esterase Urine RBC Urine WBC Ur Squamous Epith Cells Urine Bacteria Hyaline Casts U Random Total Protein Ur Random Sodium Urine Creatinine Vancomycin Trough Random Vancomycin Blood Type Antibody Screen Crossmatch 02/07/23 02/07/23 02/07/23 07:29 11:06 15:30 WBC RBC Hgb Hct MCV MCH MCHC RDW Plt Count MPV Immature Gran % (Auto) Neut % (Auto) Lymph % (Auto) [place] % (Auto) Eos % (Auto) Baso % (Auto) Lymph # (Auto) [place] # (Auto) Eos # (Auto) Baso # (Auto) Abs Immat Gran (auto) Absolute Neuts (auto) Absolute Nucleated RBC Nucleated RBC % (auto) Smear Path Review ESR Sodium Potassium Chloride Carbon Dioxide Anion Gap BUN Creatinine Estim Creat Clear Calc Estimated GFR POC Glucose 236 H 322 H 371 H* Random Glucose Estimat Average Glucose Hemoglobin A1c % Lactic Acid Lactic Acid F/U @ 2Hr Lactic Acid F/U @ 4Hr Calcium Magnesium Total Bilirubin AST ALT Alkaline Phosphatase C-Reactive Protein Total Protein Albumin Urine Color Urine Appearance Urine pH Ur Specific Chancellor Urine Protein Urine Glucose (UA) Urine Ketones Urine Blood Urine Nitrite Ur Leukocyte Esterase Urine RBC Urine WBC Ur Squamous Epith Cells Urine Bacteria Hyaline Casts U Random Total Protein Ur Random Sodium Urine Creatinine Vancomycin Trough Random Vancomycin Blood Type Antibody Screen Crossmatch 02/07/23 02/07/23 02/08/23 17:04 19:16 05:49 WBC RBC Hgb Hct MCV MCH MCHC RDW Plt Count MPV Immature Gran % (Auto) Neut % (Auto) Lymph % (Auto) [place] % (Auto) Eos % (Auto) Baso % (Auto) Lymph # (Auto) [place] # (Auto) Eos # (Auto) Baso # (Auto) Abs Immat Gran (auto) Absolute Neuts (auto) Absolute Nucleated RBC Nucleated RBC % (auto) Smear Path Review ESR Sodium 145 Potassium 3.1 L Chloride 108 Carbon Dioxide 26 Anion Gap 14 BUN Creatinine 1.04 Estim Creat Clear Calc 81.4 Estimated GFR > 60 POC Glucose 385 H* Random Glucose Estimat Average Glucose Hemoglobin A1c % Lactic Acid Lactic Acid F/U @ 2Hr Lactic Acid F/U @ 4Hr Calcium Magnesium 1.8 Total Bilirubin AST ALT Alkaline Phosphatase C-Reactive Protein Total Protein Albumin Urine Color Urine Appearance Urine pH Ur Specific [place] Urine Protein Urine Glucose (UA) Urine Ketones Urine Blood Urine Nitrite Ur Leukocyte Esterase Urine RBC Urine WBC Ur Squamous Epith Cells Urine Bacteria Hyaline Casts U Random Total Protein Ur Random Sodium Urine Creatinine Vancomycin Trough 12.9 Random Vancomycin Blood Type Antibody Screen Crossmatch 02/08/23 02/08/23 02/08/23 07:15 11:14 15:07 WBC RBC Hgb Hct MCV MCH MCHC RDW Plt Count MPV Immature Gran % (Auto) Neut % (Auto) Lymph % (Auto) [place] % (Auto) Eos % (Auto) Baso % (Auto) Lymph # (Auto) [place] # (Auto) Eos # (Auto) Baso # (Auto) Abs Immat Gran (auto) Absolute Neuts (auto) Absolute Nucleated RBC Nucleated RBC % (auto) Smear Path Review ESR Sodium Potassium Chloride Carbon Dioxide Anion Gap BUN Creatinine Estim Creat Clear Calc Estimated GFR POC Glucose 106 271 H 315 H Random Glucose Estimat Average Glucose Hemoglobin A1c % Lactic Acid Lactic Acid F/U @ 2Hr Lactic Acid F/U @ 4Hr Calcium Magnesium Total Bilirubin AST ALT Alkaline Phosphatase C-Reactive Protein Total Protein Albumin Urine Color Urine Appearance Urine pH Ur Specific [place] Urine Protein Urine Glucose (UA) Urine Ketones Urine Blood Urine Nitrite Ur Leukocyte Esterase Urine RBC Urine WBC Ur Squamous Epith Cells Urine Bacteria Hyaline Casts U Random Total Protein Ur Random Sodium Urine Creatinine Vancomycin Trough Random Vancomycin Blood Type Antibody Screen Crossmatch 02/08/23 02/09/23 02/09/23 19:25 06:13 07:28 WBC RBC Hgb Hct MCV MCH MCHC RDW Plt Count MPV Immature Gran % (Auto) Neut % (Auto) Lymph % (Auto) [place] % (Auto) Eos % (Auto) Baso % (Auto) Lymph # (Auto) [place] # (Auto) Eos # (Auto) Baso # (Auto) Abs Immat Gran (auto) Absolute Neuts (auto) Absolute Nucleated RBC Nucleated RBC % (auto) Smear Path Review ESR Sodium Potassium Chloride Carbon Dioxide Anion Gap BUN Creatinine 1.02 Estim Creat Clear Calc 83.0 Estimated GFR > 60 POC Glucose 304 H 132 H Random Glucose Estimat Average Glucose Hemoglobin A1c % Lactic Acid Lactic Acid F/U @ 2Hr Lactic Acid F/U @ 4Hr Calcium Magnesium Total Bilirubin AST ALT Alkaline Phosphatase C-Reactive Protein Total Protein Albumin Urine Color Urine Appearance Urine pH Ur Specific [place] Urine Protein Urine Glucose (UA) Urine Ketones Urine Blood Urine Nitrite Ur Leukocyte Esterase Urine RBC Urine WBC Ur Squamous Epith Cells Urine Bacteria Hyaline Casts U Random Total Protein Ur Random Sodium Urine Creatinine Vancomycin Trough Random Vancomycin Blood Type Antibody Screen Crossmatch 02/09/23 02/09/23 02/09/23 11:35 16:28 18:11 WBC RBC Hgb Hct MCV MCH MCHC RDW Plt Count MPV Immature Gran % (Auto) Neut % (Auto) Lymph % (Auto) [place] % (Auto) Eos % (Auto) Baso % (Auto) Lymph # (Auto) [place] # (Auto) Eos # (Auto) Baso # (Auto) Abs Immat Gran (auto) Absolute Neuts (auto) Absolute Nucleated RBC Nucleated RBC % (auto) Smear Path Review ESR Sodium Potassium Chloride Carbon Dioxide Anion Gap BUN Creatinine Estim Creat Clear Calc Estimated GFR POC Glucose 168 H 281 H Random Glucose Estimat Average Glucose Hemoglobin A1c % Lactic Acid Lactic Acid F/U @ 2Hr Lactic Acid F/U @ 4Hr Calcium Magnesium Total Bilirubin AST ALT Alkaline Phosphatase C-Reactive Protein Total Protein Albumin Urine Color Urine Appearance Urine pH Ur Specific [place] Urine Protein Urine Glucose (UA) Urine Ketones Urine Blood Urine Nitrite Ur Leukocyte Esterase Urine RBC Urine WBC Ur Squamous Epith Cells Urine Bacteria Hyaline Casts U Random Total Protein Ur Random Sodium Urine Creatinine Vancomycin Trough 13.2 Random Vancomycin Blood Type Antibody Screen Crossmatch 02/09/23 02/10/23 02/10/23 20:22 05:26 07:12 WBC RBC Hgb Hct MCV MCH MCHC RDW Plt Count MPV Immature Gran % (Auto) Neut % (Auto) Lymph % (Auto) [place] % (Auto) Eos % (Auto) Baso % (Auto) Lymph # (Auto) [place] # (Auto) Eos # (Auto) Baso # (Auto) Abs Immat Gran (auto) Absolute Neuts (auto) Absolute Nucleated RBC Nucleated RBC % (auto) Smear Path Review ESR Sodium Potassium Chloride Carbon Dioxide Anion Gap BUN Creatinine 1.15 Estim Creat Clear Calc 73.6 Estimated GFR > 60 POC Glucose 378 H* 257 H Random Glucose Estimat Average Glucose Hemoglobin A1c % Lactic Acid Lactic Acid F/U @ 2Hr Lactic Acid F/U @ 4Hr Calcium Magnesium Total Bilirubin AST ALT Alkaline Phosphatase C-Reactive Protein Total Protein Albumin Urine Color Urine Appearance Urine pH Ur Specific [place] Urine Protein Urine Glucose (UA) Urine Ketones Urine Blood Urine Nitrite Ur Leukocyte Esterase Urine RBC Urine WBC Ur Squamous Epith Cells Urine Bacteria Hyaline Casts U Random Total Protein Ur Random Sodium Urine Creatinine Vancomycin Trough Random Vancomycin Blood Type Antibody Screen Crossmatch 02/10/23 02/10/23 02/10/23 11:11 16:33 18:22 WBC RBC Hgb Hct MCV MCH MCHC RDW Plt Count MPV Immature Gran % (Auto) Neut % (Auto) Lymph % (Auto) [place] % (Auto) Eos % (Auto) Baso % (Auto) Lymph # (Auto) [place] # (Auto) Eos # (Auto) Baso # (Auto) Abs Immat Gran (auto) Absolute Neuts (auto) Absolute Nucleated RBC Nucleated RBC % (auto) Smear Path Review ESR Sodium Potassium Chloride Carbon Dioxide Anion Gap BUN Creatinine Estim Creat Clear Calc Estimated GFR POC Glucose 305 H 324 H Random Glucose Estimat Average Glucose Hemoglobin A1c % Lactic Acid Lactic Acid F/U @ 2Hr Lactic Acid F/U @ 4Hr Calcium Magnesium Total Bilirubin AST ALT Alkaline Phosphatase C-Reactive Protein Total Protein Albumin Urine Color Urine Appearance Urine pH Ur Specific [place] Urine Protein Urine Glucose (UA) Urine Ketones Urine Blood Urine Nitrite Ur Leukocyte Esterase Urine RBC Urine WBC Ur Squamous Epith Cells Urine Bacteria Hyaline Casts U Random Total Protein Ur Random Sodium Urine Creatinine Vancomycin Trough 22.7 H Random Vancomycin Blood Type Antibody Screen Crossmatch 02/10/23 02/11/23 02/11/23 19:51 05:47 05:47 WBC RBC Hgb Hct MCV MCH MCHC RDW Plt Count MPV Immature Gran % (Auto) Neut % (Auto) Lymph % (Auto) [place] % (Auto) Eos % (Auto) Baso % (Auto) Lymph # (Auto) [place] # (Auto) Eos # (Auto) Baso # (Auto) Abs Immat Gran (auto) Absolute Neuts (auto) Absolute Nucleated RBC Nucleated RBC % (auto) Smear Path Review ESR Sodium Potassium Chloride Carbon Dioxide Anion Gap BUN Creatinine 0.98 Estim Creat Clear Calc 86.4 Estimated GFR > 60 POC Glucose 253 H Random Glucose Estimat Average Glucose Hemoglobin A1c % Lactic Acid Lactic Acid F/U @ 2Hr Lactic Acid F/U @ 4Hr Calcium Magnesium Total Bilirubin AST ALT Alkaline Phosphatase C-Reactive Protein Total Protein Albumin Urine Color Urine Appearance Urine pH Ur Specific [place] Urine Protein Urine Glucose (UA) Urine Ketones Urine Blood Urine Nitrite Ur Leukocyte Esterase Urine RBC Urine WBC Ur Squamous Epith Cells Urine Bacteria Hyaline Casts U Random Total Protein Ur Random Sodium Urine Creatinine Vancomycin Trough Random Vancomycin 17.5 Blood Type Antibody Screen Crossmatch 02/11/23 02/11/23 02/11/23 07:14 09:54 09:54 WBC 8.0 RBC 2.91 L Hgb 9.0 L Hct 26.4 L MCV 90.7 MCH 30.9 MCHC 34.1 RDW 12.5 Plt Count 146 L MPV 11.0 Immature Gran % (Auto) 0.3 Neut % (Auto) 69.5 Lymph % (Auto) 22.0 [place] % (Auto) 4.8 Eos % (Auto) 2.5 Baso % (Auto) 0.9 Lymph # (Auto) 1.7 [place] # (Auto) 0.4 Eos # (Auto) 0.2 Baso # (Auto) 0.1 Abs Immat Gran (auto) 0.02 Absolute Neuts (auto) 5.5 Absolute Nucleated RBC 0.000 Nucleated RBC % (auto) 0.0 Smear Path Review ESR Sodium Potassium Chloride Carbon Dioxide Anion Gap BUN Creatinine Estim Creat Clear Calc Estimated GFR POC Glucose 149 H Random Glucose Estimat Average Glucose Hemoglobin A1c % Lactic Acid Lactic Acid F/U @ 2Hr Lactic Acid F/U @ 4Hr Calcium Magnesium Total Bilirubin AST ALT Alkaline Phosphatase C-Reactive Protein Total Protein Albumin Urine Color Urine Appearance Urine pH Ur Specific [place] Urine Protein Urine Glucose (UA) Urine Ketones Urine Blood Urine Nitrite Ur Leukocyte Esterase Urine RBC Urine WBC Ur Squamous Epith Cells Urine Bacteria Hyaline Casts U Random Total Protein Ur Random Sodium Urine Creatinine Vancomycin Trough Random Vancomycin Blood Type A Negative Antibody Screen NEGATIVE Crossmatch Airway Mallampati Class: II TM Dist: >3cm Neck ROM: Limited Heart: rrr Lungs: cta Assessment and Plan Assessment Anesthesia Assessment: Anesthesia Plan Discussed Final Anesthetic Review Family History of Problems with Anesthesia: No History of Problems with Anesthesia: No NPO: Yes ASA Class: IV Final Preanesthetic Review: No Changes in Pt Med Stat, Meds/Allgs Chart Reviewed, Consent Obtained/Reviewed and Anes Risks/Benef Reviewed Patient Risk: High Procedure Risk: Intermediate Anesthetic Plan Anesthetic Plan: Regional Block and Agree w/ Assess. and Plan Disposition: Standard PACU
--- NOTE | 2023-02-11 13:45 | W.PM.OPN ---
Operative Note Operative Note Date of Service: 02/11/23 Narrative: Preop diagnosis: Recent 5th toe amputation with large open wound, now with 4th toe gangrene Postop diagnosis: The same Procedure: below-knee amputation, left leg Surgeon: Doug Wahl MD engineering inspection assistant: ARNOLD Zhang The patient is a 57-year-old male, known diabetic, with gangrene of the 5th toe and had undergone amputation with extensive debridement of the area last week. He has a large soft tissue defect as he did not want to proceed with BKA at that time. Now he has dry gangrene of the 4th toe and explained to him that this needs to be amputated as well as this had demarcated already. He had eventually decided to proceed with below-knee amputation because of the need for intensive wound care the due to the large open wound. He understood the planned procedure as well as the risks, benefits, and alternatives. He was brought to the operating room. He was placed supine under monitored anesthesia care with a popliteal block earlier by the anesthesiologist. I marked my planned line of incision. A surgical time-out had been done. The patient receiving scheduled antibiotics. I made the incision on the skin about 13 cm from the tibial tubercle transversely and went distally in a longitudinal direction on the lateral and the medial aspect of the skin. I then proceeded to use cautery to divide through the rest of the skin and subcutaneous layer. I divided the fascia as well as anterior muscle groups until was able to expose the tibia. I cleared the tibia using the periosteal elevator and divided this using the bone saw, bevelling anteriorly. I continued to divide through the through the muscle groups surrounding the tibia with careful dissection using electrocautery. I was able to identify the vascular pedicles and each of these were ligated, and divided between ties. We used Polysorb 2-0 ties gait these pedicles. Eventually, I was able to achieve exposure of the fibula. I divided the fibula using the bone saw as well. The fibula was divided about 1.5 cm more proximal than the divided tibia. I then proceeded to define the gastrocnemius and developed this as a flap. I removed the rest of the muscle groups anterior to this. This was done with dissection using electrocautery. I completed the amputation by dividing the rest of the muscles attached to the tibia and the fibula and preserved the gastro skin use as a flap posteriorly. The gastric clean use flap was completed by used a blade 15 to divide the skin on the posterior aspect distally. This allowed me to completely separate the leg below-knee and this was sent as a specimen. We had the tourniquet a beginning of the case. At this point therefore I loosened the tourniquet to expose any bleeders. We had to ligate small oozing areas. I used electrocautery to chief hemostasis on room muscle areas that were oozing. I copiously irrigated. I applied bone wax on divided edges of the tibia and the fibula. I smoothened sharp edges of the divided bones using the bone file. Once hemostasis was confirmed, I proceeded to copiously irrigate the stump. I then proceeded to cover the stump with the gastrocnemius flap.. I secured the muscle flap stump with multiple Polysorb 2-0 sutures towards the fascia anteriorly to achieve coverage of the tibial stump. I proceeded to trimmed the excess skin. I closed the subcutaneous layer with Mchenry 3-0 interrupted sutures. Skin closure was achieved with skin navdeep. I applied thick fluffy dressing and wrapped the stump with Kerlix and Garry bandage . The procedure was then completed. The patient tolerated the procedure well. There were no immediate complications. Initial and final counts of sponges and instruments were correct. Estimated blood loss was about 75 cc . Tourniquet time was 35 minutes. The patient was then transferred to the recovery room with stable vital signs.
[2023-02-11 14:26] LABS: Anion Gap 13 (12-20); Blood Urea Nitrogen 16 mg/dL (9-16); Calcium 8.8 mg/dL (8.4-10.2); Carbon Dioxide 25 mmol/L (22-29); Chloride 109 mmol/L (96-108); Creatinine Clr Calc Pharmacy 83.8; Estimated Glomerular Filt Rate > 60; Glucose Random 163 mg/dL (60-115); Potassium 3.5 mmol/L (3.3-5.1); Sodium 143 mmol/L (135-145)
[2023-02-11 14:36] LABS: Glucose, Whole Blood 143 mg/dL (60-115)
--- NOTE | 2023-02-11 15:02 | HO.PM.IMPN ---
Subjective Subjective Date of Service: 02/11/23 Interval History: follow-up on diabetic foot infection, osteomyelitis Review of Systems doing well, no new issues, s/p angiogram. Physical Exam Vital Signs: Vital Signs: Last Vital Signs Temp 96.8 F 02/11/23 14:49 Pulse 68 02/11/23 14:49 Resp 16 02/11/23 14:49 BP 147/72 H 02/11/23 14:49 Pulse Ox 99 02/11/23 14:49 O2 Del Method Room Air 02/11/23 14:49 BMI result Body Mass Index 29.2 General: AO X 3, no acute distress Resp:? CTA bilateral CVS: S1,S2,RRR GI: +BS, NT, no distention Skin: left foot wound dressing in place Neuro:? motor grossly intact Psych: appropriate affect Objective Data Active Medications Acetaminophen (Acetaminophen 325 Mg Tablet) 650 mg PO Q6H PRN PRN Reason: Pain, Mild (Pain Scale 1-3) Amlodipine Besylate (Amlodipine Besylate 5 Mg Tablet) 5 mg PO DAILY [facility]; Protocol Last Admin: 02/11/23 08:27 Dose: 5 mg Documented By: OTF Aspirin (Aspirin Enteric Coated 81 Mg Tablet.) 81 mg PO DAILY [facility] Last Admin: 02/11/23 07:50 Dose: Not Given Documented By: OTF Non-Admin Reason: NPO Clopidogrel Bisulfate (Clopidogrel Bisulfate 75 Mg Tablet) 75 mg PO DAILY [facility] Last Admin: 02/11/23 07:50 Dose: Not Given Documented By: OTF Non-Admin Reason: NPO Dextrose (Dextrose 50 % 25 Gm/50 Ml Syringe) 25 gm IVPUSH Q15M PRN; Protocol PRN Reason: per Hypoglycemia Standing Ord. Glucose (Glucose Gel 15 Gm Gel..Gram.) 15 gm PO Q15M PRN; Protocol PRN Reason: per Hypoglycemia Standing Ord. Piperacillin Sod/Tazobactam (Sod 3.375 gm/ Sodium Chloride) 50 mls @ 100 mls/hr IV Q6H [facility] Last Admin: 02/11/23 14:20 Dose: 100 mls/hr Documented By: OTF Vancomycin HCl 1,500 mg/ (Sodium Chloride) 500 mls @ 333.333 mls/hr IV Q24H [facility] Last Infusion: 02/11/23 10:06 Dose: 0 mls/hr Documented By: OTF Insulin Glargine (Insulin Glargine,Hum.Rec.Anlog 100 Unit/Ml 10 Ml Vial) 20 unit SUBCUT BEDTIME [facility] Last Admin: 02/10/23 20:41 Dose: 20 unit Documented By: NING Insulin Human Lispro (Insulin Lispro 100 Unit/Ml 3 Ml Vial) 0 unit SUBCUT QIDACHS [facility]; Protocol Last Admin: 02/11/23 11:26 Dose: Not Given Documented By: OTF Non-Admin Reason: Off Unit: Surgery Insulin Human Lispro (Insulin Lispro 100 Unit/Ml 3 Ml Vial) 5 unit SUBCUT QIDACHS [facility] Last Admin: 02/11/23 11:27 Dose: Not Given Documented By: OTF Non-Admin Reason: Off Unit: Surgery Magnesium Hydroxide (Milk Of Magnesia 30 Ml Oral.Susp) 30 ml PO DAILY PRN PRN Reason: Constipation Methadone HCl (Methadone Hcl 20 Mg/2 Ml Oral.Conc) 30 mg PO DAILY [facility] Last Admin: 02/11/23 08:27 Dose: 30 mg Documented By: OTF Metoprolol Succinate (Metoprolol Succinate Er 100 Mg Tab.Er.24h) 100 mg PO DAILY [facility]; Protocol Last Admin: 02/11/23 08:27 Dose: 100 mg Documented By: OTF Morphine Sulfate (Morphine Sulfate 4 Mg/Ml Cartridge) 4 mg IVPUSH Q4H PRN; Protocol PRN Reason: Pain, Severe (Pain Scale 7-10) Nicotine (Nicotine 21 Mg Patch.Td24) 21 mg TRANSDERMA DAILY [facility] Last Admin: 02/11/23 08:27 Dose: 21 mg Documented By: OTF Pt Own (Emtricitab- Rilpivir-Tenofo Ala [Odefsey] 200-25-25 Mg Tablet) 1 tab PO DAILY@1200 [facility] Last Admin: 02/11/23 14:20 Dose: 1 tab Documented By: OTF Oxycodone HCl (Oxycodone Hcl Immed Release 5 Mg Tablet) 5 mg PO Q4H PRN PRN Reason: Pain, Moderate(Pain Scale 4-6) Oxycodone HCl (Oxycodone Hcl Immed Release 5 Mg Tablet) 10 mg PO Q4H PRN PRN Reason: Pain, Severe (Pain Scale 7-10) Pharmacy Consult (Consult Rx Perform Med Rec) 1 each MISCELLANE ONCE PRN PRN Reason: Consult order Pharmacy Consult (Consult Rx Vancomycin Dosing) 1 each MISCELLANE DAILY PRN PRN Reason: Consult order Polyethylene Glycol (Polyethylene Glycol 3350 17 Gm Powd.Pack) 17 gm PO DAILY PRN PRN Reason: Constipation Last Admin: 02/08/23 13:23 Dose: 17 gm Documented By: ESTHER Quetiapine Fumarate (Quetiapine Fumarate 100 Mg Tablet) 100 mg PO DAILY@1800 [facility] Last Admin: 02/10/23 17:48 Dose: 100 mg Documented By: LEIA Sodium Chloride (0.9 % Sodium Chloride Flush 3 Ml Syringe) 3 ml IVFLUSH QSHIFT [facility] Last Admin: 02/11/23 13:59 Dose: Not Given Documented By: OTF Non-Admin Reason: See Note Vitamin D (Cholecalciferol (Vitamin D3) 25 Mcg Tablet) 50 mcg PO DAILY [facility] Last Admin: 02/10/23 08:18 Dose: 50 mcg Documented By: LEIA Labs 02/11/23 09:54 02/11/23 09:54 Labs: Laboratory Results - last 24 hr 02/10/23 02/10/23 02/10/23 16:33 18:22 19:51 MCV MCH MCHC RDW Plt Count MPV Immature Gran % (Auto) Neut % (Auto) Lymph % (Auto) [place] % (Auto) Eos % (Auto) Baso % (Auto) Lymph # (Auto) [place] # (Auto) Eos # (Auto) Baso # (Auto) Abs Immat Gran (auto) Absolute Neuts (auto) Absolute Nucleated RBC Nucleated RBC % (auto) Anion Gap Estim Creat Clear Calc Estimated GFR POC Glucose 324 H 253 H Random Glucose Calcium Vancomycin Trough 22.7 H Random Vancomycin Blood Type Antibody Screen 02/11/23 02/11/23 02/11/23 05:47 05:47 07:14 MCV MCH MCHC RDW Plt Count MPV Immature Gran % (Auto) Neut % (Auto) Lymph % (Auto) [place] % (Auto) Eos % (Auto) Baso % (Auto) Lymph # (Auto) [place] # (Auto) Eos # (Auto) Baso # (Auto) Abs Immat Gran (auto) Absolute Neuts (auto) Absolute Nucleated RBC Nucleated RBC % (auto) Anion Gap Estim Creat Clear Calc 86.4 Estimated GFR > 60 POC Glucose 149 H Random Glucose Calcium Vancomycin Trough Random Vancomycin 17.5 Blood Type Antibody Screen 02/11/23 02/11/23 02/11/23 09:54 09:54 09:54 MCV 90.7 MCH 30.9 MCHC 34.1 RDW 12.5 Plt Count 146 L MPV 11.0 Immature Gran % (Auto) 0.3 Neut % (Auto) 69.5 Lymph % (Auto) 22.0 [place] % (Auto) 4.8 Eos % (Auto) 2.5 Baso % (Auto) 0.9 Lymph # (Auto) 1.7 [place] # (Auto) 0.4 Eos # (Auto) 0.2 Baso # (Auto) 0.1 Abs Immat Gran (auto) 0.02 Absolute Neuts (auto) 5.5 Absolute Nucleated RBC 0.000 Nucleated RBC % (auto) 0.0 Anion Gap 13 Estim Creat Clear Calc 83.8 Estimated GFR > 60 POC Glucose Random Glucose 163 H Calcium 8.8 Vancomycin Trough Random Vancomycin Blood Type A Negative Antibody Screen NEGATIVE 02/11/23 14:33 MCV MCH MCHC RDW Plt Count MPV Immature Gran % (Auto) Neut % (Auto) Lymph % (Auto) [place] % (Auto) Eos % (Auto) Baso % (Auto) Lymph # (Auto) [place] # (Auto) Eos # (Auto) Baso # (Auto) Abs Immat Gran (auto) Absolute Neuts (auto) Absolute Nucleated RBC Nucleated RBC % (auto) Anion Gap Estim Creat Clear Calc Estimated GFR POC Glucose 143 H Random Glucose Calcium Vancomycin Trough Random Vancomycin Blood Type Antibody Screen Assessment and Plan (1) Gangrene of toe of left foot: Status: Acute Plan 57-year-old male with history of diabetes, osteomyelitis who presents with a nonhealing left foot wound/5th toe . Sepsis secondary to nonhealing wound,/diabetic foot ulcer-suspected acute osteomyelitis--see pic (in ED note). s/p bedside debridment by Dr. Wahl and OR debridment 02/04? and probable will need definitive ampuation, he is open to BKA. s/p angiogram by Dr. Billings on today 02/09. continue IV Abx (Vanco and Zosyn since 02/02), cultures negative thus far patient will be going for bka today PAD Continue home medications.? Vascular following, angiogram planed for 02/09 ?COLT:? on CKD, improved. DM--fs acceptable continue insulin ?HIV:?continue home medication Hypertension-- hold hydrochlorothiazide and Lasix in the setting of COLT Chronic anemia: s/p 1 unit RBC 02/02, H/H worse, transfused 2 units 02/05, H/H is better HypOnatremia:? Mild hypOnatremia possibly related to decreased p.o. intake, resolved DVT prophylaxis :? Chemoprophylaxis on hold because of anemia. compression device need for inpt: IV Abx? for sepsis, likely acute osteomylitis , s/p angiogram and need ?possibly surgery intervention today Time Spent With Patient Time: Total time managing care of this patient today ____ minutes. Quality Stroke Does the patient have a stroke diagnosis?: No VTE Prior VTE?: No VTE Risk Level:: Medical - moderate - high VTE Device Contraindication: N/A - Device Ordered VTE Drug Contraindication: N/A - Med Ordered
[2023-02-11 16:24] LABS: Glucose, Whole Blood 232 mg/dL (60-115)
[2023-02-11] MEDS: QUEtiapine Fumarate 100 MG TABLET PO (16:59)
[2023-02-11] MEDS: Insulin Lispro 100 UNIT/ML 3 ML VIAL SUBCUT ×4 (17:00→20:15)
[2023-02-11 19:54] LABS: Glucose, Whole Blood 359 mg/dL (60-115)
[2023-02-11] MEDS: Insulin Glargine,Hum.rec.anlog 100 UNIT/ML 10 ML VIAL 20 UNIT SUBCUT (20:16)
[2023-02-12] VITALS (7 sets, daily range): BP systolic 136–151; BP diastolic 66–77; PULSE 72–82; RESP 16–20; TEMP 36.1–37.1; O2SAT 95–99
[2023-02-12] MEDS: Piperacillin Sodium/Tazobactam 3.375 GM in 0.9 % Sodium Chloride 50 ML IV ×4 (01:26→20:30)
[2023-02-12 07:20] LABS: Creatinine Clr Calc Pharmacy 77.6; Estimated Glomerular Filt Rate > 60
[2023-02-12 07:38] LABS: Glucose, Whole Blood 147 mg/dL (60-115)
[2023-02-12] MEDS: methADONE HCl 20 MG/2 ML ORAL.CONC 30 MG PO (07:52)
[2023-02-12] MEDS: oxyCODONE HCl Immed Release 5 MG TABLET 10 MG PO ×2 (07:53→20:32)
[2023-02-12 07:54] LABS: Vancomycin Random 18.1 mcg/mL (15-20)
[2023-02-12] MEDS: Metoprolol Succinate ER 100 MG TAB.ER.24H PO (07:55)
[2023-02-12] MEDS: Aspirin Enteric Coated 81 MG TABLET.DR PO (07:56)
[2023-02-12] MEDS: amLODIPine Besylate 5 MG TABLET PO (07:56)
--- NOTE | 2023-02-12 08:02 | HE.PHANOTE ---
RE: VANCO Patients level came back this morning at 18.1. Patient had a below knee amputation last night. Patient also showed a jump in Scr. Will decrease dose to 1250 mg Q24H and get a level after 1 dose to see how patient is tolerating. I suspect renal function may continue to decline due to the stress of surgery. Lowered dose as well because now patient has less muscle mass. Predicted AUC 413 mg/L/hr.
[2023-02-12] MEDS: Insulin Lispro 100 UNIT/ML 3 ML VIAL SUBCUT ×7 (08:06→20:45)
--- NOTE | 2023-02-12 08:06 | PM.PNGS ---
Subjective Subjective Date of Service: 02/12/23 <Shey Zhang PA-C - Last Filed: 02/12/23 08:11> 02/12/23 <Doug Wahl MD - Last Filed: 02/12/23 08:39> Interval history: C/o severe pain. Did not receive any pain meds overnight. <Shey Zhang PA-C - Last Filed: 02/12/23 08:11> Physical Exam Vital Signs: Vital Signs: Last Vital Signs Temp 97.1 F 02/12/23 07:09 Pulse 79 02/12/23 07:09 Resp 18 02/12/23 07:09 BP 147/77 H 02/12/23 07:09 Pulse Ox 98 02/12/23 07:09 O2 Del Method Room Air 02/12/23 07:09 BMI result Body Mass Index 29.2 <Shey Zhang PA-C - Last Filed: 02/12/23 08:11> Const: General: comfortable, no acute distress and alert <Shey Zhang PA-C - Last Filed: 02/12/23 08:11> Orientation/consciousness: patient oriented x3 <Shey Zhang PA-C - Last Filed: 02/12/23 08:11> Resp: Effort & Inspection: normal respiratory effort <Shey Zhang PA-C - Last Filed: 02/12/23 08:11> Skin: General skin exam: no rashes or lesions noted <Shey Zhang PA-C - Last Filed: 02/12/23 08:11> Neuro: General: patient oriented x3 <Shey Zhang PA-C - Last Filed: 02/12/23 08:11> Extrem: Other: left BKA site with dressing in place, some sanguineous staining <NOEL Moreno Last Filed: 02/12/23 08:11> Objective Data Active Medications Acetaminophen (Acetaminophen 325 Mg Tablet) 650 mg PO Q6H PRN PRN Reason: Pain, Mild (Pain Scale 1-3) Amlodipine Besylate (Amlodipine Besylate 5 Mg Tablet) 5 mg PO DAILY [facility]; Protocol Last Admin: 02/12/23 07:56 Dose: 5 mg Documented By: ROLLY Aspirin (Aspirin Enteric Coated 81 Mg Tablet.) 81 mg PO DAILY [facility] Last Admin: 02/12/23 07:56 Dose: 81 mg Documented By: ROLLY Clopidogrel Bisulfate (Clopidogrel Bisulfate 75 Mg Tablet) 75 mg PO DAILY [facility] Last Admin: 02/11/23 07:50 Dose: Not Given Documented By: OTF Non-Admin Reason: NPO Dextrose (Dextrose 50 % 25 Gm/50 Ml Syringe) 25 gm IVPUSH Q15M PRN; Protocol PRN Reason: per Hypoglycemia Standing Ord. Glucose (Glucose Gel 15 Gm Gel..Gram.) 15 gm PO Q15M PRN; Protocol PRN Reason: per Hypoglycemia Standing Ord. Piperacillin Sod/Tazobactam (Sod 3.375 gm/ Sodium Chloride) 50 mls @ 100 mls/hr IV Q6H [facility] Last Infusion: 02/12/23 02:04 Dose: 0 mls/hr Documented By: CHARLES Vancomycin HCl 1,250 mg/ (Sodium Chloride) 250 mls @ 166.667 mls/hr IV Q24H [facility] Insulin Glargine (Insulin Glargine,Hum.Rec.Anlog 100 Unit/Ml 10 Ml Vial) 20 unit SUBCUT BEDTIME [facility] Last Admin: 02/11/23 20:16 Dose: 20 unit Documented By: CHARLES Insulin Human Lispro (Insulin Lispro 100 Unit/Ml 3 Ml Vial) 0 unit SUBCUT QIDACHS [facility]; Protocol Last Admin: 02/11/23 20:15 Dose: 10 unit Documented By: CHARLES Insulin Human Lispro (Insulin Lispro 100 Unit/Ml 3 Ml Vial) 5 unit SUBCUT QIDACHS [facility] Last Admin: 02/11/23 20:15 Dose: 5 unit Documented By: CHARLES Magnesium Hydroxide (Milk Of Magnesia 30 Ml Oral.Susp) 30 ml PO DAILY PRN PRN Reason: Constipation Methadone HCl (Methadone Hcl 20 Mg/2 Ml Oral.Conc) 30 mg PO DAILY [facility] Last Admin: 02/12/23 07:52 Dose: 30 mg Documented By: ROLLY Metoprolol Succinate (Metoprolol Succinate Er 100 Mg Tab.Er.24h) 100 mg PO DAILY [facility]; Protocol Last Admin: 02/12/23 07:55 Dose: 100 mg Documented By: ROLLY Morphine Sulfate (Morphine Sulfate 4 Mg/Ml Cartridge) 4 mg IVPUSH Q4H PRN; Protocol PRN Reason: Pain, Severe (Pain Scale 7-10) Nicotine (Nicotine 21 Mg Patch.Td24) 21 mg TRANSDERMA DAILY [facility] Last Admin: 02/11/23 08:27 Dose: 21 mg Documented By: JESEFARamona Pt Own (Emtricitab- Rilpivir-Tenofo Ala [Odefsey] 200-25-25 Mg Tablet) 1 tab PO DAILY@1200 [facility] Last Admin: 02/11/23 14:20 Dose: 1 tab Documented By: OTF Oxycodone HCl (Oxycodone Hcl Immed Release 5 Mg Tablet) 5 mg PO Q4H PRN PRN Reason: Pain, Moderate(Pain Scale 4-6) Oxycodone HCl (Oxycodone Hcl Immed Release 5 Mg Tablet) 10 mg PO Q4H PRN PRN Reason: Pain, Severe (Pain Scale 7-10) Last Admin: 02/12/23 07:53 Dose: 10 mg Documented By: ROLLY Pharmacy Consult (Consult Rx Perform Med Rec) 1 each MISCELLANE ONCE PRN PRN Reason: Consult order Pharmacy Consult (Consult Rx Vancomycin Dosing) 1 each MISCELLANE DAILY PRN PRN Reason: Consult order Polyethylene Glycol (Polyethylene Glycol 3350 17 Gm Powd.Pack) 17 gm PO DAILY PRN PRN Reason: Constipation Last Admin: 02/08/23 13:23 Dose: 17 gm Documented By: ESTHER Quetiapine Fumarate (Quetiapine Fumarate 100 Mg Tablet) 100 mg PO DAILY@1800 [facility] Last Admin: 02/11/23 16:59 Dose: 100 mg Documented By: ROLLY Sodium Chloride (0.9 % Sodium Chloride Flush 3 Ml Syringe) 3 ml IVFLUSH QSHIFT [facility] Last Admin: 02/12/23 01:21 Dose: Not Given Documented By: CHARLES Non-Admin Reason: Previously Administered Vitamin D (Cholecalciferol (Vitamin D3) 25 Mcg Tablet) 50 mcg PO DAILY [facility] Last Admin: 02/10/23 08:18 Dose: 50 mcg Documented By: LEIA <Shey Zhang PA-C - Last Filed: 02/12/23 08:11> Labs CBC & Chem 7: 02/11/23 09:54 02/12/23 06:03 <Shey Zhang PA-C - Last Filed: 02/12/23 08:11> Labs: Laboratory Results - last 24 hr 02/11/23 02/11/23 02/11/23 09:54 09:54 09:54 MCV 90.7 MCH 30.9 MCHC 34.1 RDW 12.5 Plt Count 146 L MPV 11.0 Immature Gran % (Auto) 0.3 Neut % (Auto) 69.5 Lymph % (Auto) 22.0 [place] % (Auto) 4.8 Eos % (Auto) 2.5 Baso % (Auto) 0.9 Lymph # (Auto) 1.7 [place] # (Auto) 0.4 Eos # (Auto) 0.2 Baso # (Auto) 0.1 Abs Immat Gran (auto) 0.02 Absolute Neuts (auto) 5.5 Absolute Nucleated RBC 0.000 Nucleated RBC % (auto) 0.0 Anion Gap 13 Estim Creat Clear Calc 83.8 Estimated GFR > 60 POC Glucose Random Glucose 163 H Calcium 8.8 Random Vancomycin Blood Type A Negative Antibody Screen NEGATIVE 02/11/23 02/11/23 02/11/23 14:33 16:07 19:43 MCV MCH MCHC RDW Plt Count MPV Immature Gran % (Auto) Neut % (Auto) Lymph % (Auto) [place] % (Auto) Eos % (Auto) Baso % (Auto) Lymph # (Auto) [place] # (Auto) Eos # (Auto) Baso # (Auto) Abs Immat Gran (auto) Absolute Neuts (auto) Absolute Nucleated RBC Nucleated RBC % (auto) Anion Gap Estim Creat Clear Calc Estimated GFR POC Glucose 143 H 232 H 359 H* Random Glucose Calcium Random Vancomycin Blood Type Antibody Screen 02/12/23 02/12/23 02/12/23 06:03 06:03 07:12 MCV MCH MCHC RDW Plt Count MPV Immature Gran % (Auto) Neut % (Auto) Lymph % (Auto) [place] % (Auto) Eos % (Auto) Baso % (Auto) Lymph # (Auto) [place] # (Auto) Eos # (Auto) Baso # (Auto) Abs Immat Gran (auto) Absolute Neuts (auto) Absolute Nucleated RBC Nucleated RBC % (auto) Anion Gap Estim Creat Clear Calc 77.6 Estimated GFR > 60 POC Glucose 147 H Random Glucose Calcium Random Vancomycin 18.1 Blood Type Antibody Screen <Shey Zhang PA-C - Last Filed: 02/12/23 08:11> Procedures Date of Service Date of Service: 02/12/23 <Shey Zhang PA-C - Last Filed: 02/12/23 08:11> 02/12/23 <Doug Wahl MD - Last Filed: 02/12/23 08:39> Progress Note: A&P Assessment and plan (1) Status post below-knee amputation of left lower extremity: Status: Acute <Shey Zhang PA-C - Last Filed: 02/12/23 08:11> Assessment and Plan: Complaining of pain - says he has not been getting pain meds Dressings in place Plan dressing change tomorrow Pain management Keep leg off of the bed, elevated with pillow Seen and examined independently <Doug Wahl MD - Last Filed: 02/12/23 08:39> (2) Gangrene of left foot: Status: Acute <Shey Zhang PA-C - Last Filed: 02/12/23 08:11> Assessment and Plan: 57 year old male now POD #1 s/p left BKA. C/o pain. Has not received any analgesics despite having multiple ordered. Discussed with RN who will medicate patient now. Cont left leg elevation, pain control. Dressing change tomorrow. <Shey Zhang PA-C - Last Filed: 02/12/23 08:11> Time Spent With Patient Time: Total time managing care of this patient today ____ minutes. <Shey Zhang PA-C - Last Filed: 02/12/23 08:11> Quality Stroke Does the patient have a stroke diagnosis?: No <Shey Zhang PA-C - Last Filed: 02/12/23 08:11> VTE Prior VTE?: No <Shey Zhang PA-C - Last Filed: 02/12/23 08:11> VTE Risk Level:: Medical - moderate - high <Shey Zhang PA-C - Last Filed: 02/12/23 08:11> VTE Device Contraindication: N/A - Device Ordered <NOEL Moreno Last Filed: 02/12/23 08:11> VTE Drug Contraindication: N/A - Med Ordered <Shey Zhang PA-C - Last Filed: 02/12/23 08:11>
[2023-02-12 08:57] LABS: Hematocrit 22.9 % (42.0-52.0)
[2023-02-12] MEDS: vancomycin HCL 1,250 MG in 0.9 % Sodium Chloride 250 ML 166.67 MG IV (09:09)
--- NOTE | 2023-02-12 09:47 | MHC.CM.PN ---
(L) BKA on 02/11/2023 and Patient c/o severe pain. Patient may benefit from a PT eval, when appropriate, to assist with disposition. CM will follow.Patient's Methadone will significantly limit his SNF options.
[2023-02-12] MEDS: Acetaminophen 325 MG TABLET 650 MG PO (11:31)
[2023-02-12 11:36] LABS: Glucose, Whole Blood 198 mg/dL (60-115)
--- NOTE | 2023-02-12 12:54 | HO.PM.IMPN ---
Subjective Subjective Date of Service: 02/12/23 Interval History: follow-up on diabetic foot infection, osteomyelitis Review of Systems doing well, no new issues, s/p angiogram ,also had bka (02/11/23) Has mild pain in the BKA site, denies any shortness of breath or chest pain. Physical Exam Vital Signs: Vital Signs: Last Vital Signs Temp 97.5 F 02/12/23 11:09 Pulse 74 02/12/23 11:09 Resp 18 02/12/23 11:09 BP 145/69 H 02/12/23 11:09 Pulse Ox 97 02/12/23 11:09 O2 Del Method Room Air 02/12/23 11:09 BMI result Body Mass Index 29.2 General: AO X 3, no acute distress Resp:? CTA bilateral CVS: S1,S2,RRR GI: +BS, NT, no distention Skin: s/p left bka ,wrapped . Neuro:? motor grossly intact Psych: appropriate affect Objective Data Active Medications Acetaminophen (Acetaminophen 325 Mg Tablet) 650 mg PO Q6H PRN PRN Reason: Pain, Mild (Pain Scale 1-3) Last Admin: 02/12/23 11:31 Dose: 650 mg Documented By: ROLLY Amlodipine Besylate (Amlodipine Besylate 5 Mg Tablet) 5 mg PO DAILY [facility]; Protocol Last Admin: 02/12/23 07:56 Dose: 5 mg Documented By: ROLLY Aspirin (Aspirin Enteric Coated 81 Mg Tablet.) 81 mg PO DAILY [facility] Last Admin: 02/12/23 07:56 Dose: 81 mg Documented By: ROLLY Clopidogrel Bisulfate (Clopidogrel Bisulfate 75 Mg Tablet) 75 mg PO DAILY [facility] Last Admin: 02/11/23 07:50 Dose: Not Given Documented By: OTF Non-Admin Reason: NPO Dextrose (Dextrose 50 % 25 Gm/50 Ml Syringe) 25 gm IVPUSH Q15M PRN; Protocol PRN Reason: per Hypoglycemia Standing Ord. Glucose (Glucose Gel 15 Gm Gel..Gram.) 15 gm PO Q15M PRN; Protocol PRN Reason: per Hypoglycemia Standing Ord. Piperacillin Sod/Tazobactam (Sod 3.375 gm/ Sodium Chloride) 50 mls @ 100 mls/hr IV Q6H [facility] Last Infusion: 02/12/23 09:11 Dose: 0 mls/hr Documented By: ROLLY Vancomycin HCl 1,250 mg/ (Sodium Chloride) 250 mls @ 166.667 mls/hr IV Q24H [facility] Last Infusion: 02/12/23 11:26 Dose: 0 mls/hr Documented By: ROLLY Insulin Glargine (Insulin Glargine,Hum.Rec.Anlog 100 Unit/Ml 10 Ml Vial) 20 unit SUBCUT BEDTIME [facility] Last Admin: 02/11/23 20:16 Dose: 20 unit Documented By: CHARLES Insulin Human Lispro (Insulin Lispro 100 Unit/Ml 3 Ml Vial) 0 unit SUBCUT QIDACHS [facility]; Protocol Last Admin: 02/12/23 12:03 Dose: 2 unit Documented By: ROLLY Insulin Human Lispro (Insulin Lispro 100 Unit/Ml 3 Ml Vial) 5 unit SUBCUT QIDACHS [facility] Last Admin: 02/12/23 12:04 Dose: 5 unit Documented By: ROLLY Magnesium Hydroxide (Milk Of Magnesia 30 Ml Oral.Susp) 30 ml PO DAILY PRN PRN Reason: Constipation Methadone HCl (Methadone Hcl 20 Mg/2 Ml Oral.Conc) 30 mg PO DAILY [facility] Last Admin: 02/12/23 07:52 Dose: 30 mg Documented By: ROLLY Metoprolol Succinate (Metoprolol Succinate Er 100 Mg Tab.Er.24h) 100 mg PO DAILY [facility]; Protocol Last Admin: 02/12/23 07:55 Dose: 100 mg Documented By: ROLLY Morphine Sulfate (Morphine Sulfate 4 Mg/Ml Cartridge) 4 mg IVPUSH Q4H PRN; Protocol PRN Reason: Pain, Severe (Pain Scale 7-10) Nicotine (Nicotine 21 Mg Patch.Td24) 21 mg TRANSDERMA DAILY [facility] Last Admin: 02/12/23 08:50 Dose: Not Given Documented By: ROLLY Non-Admin Reason: Patient Refused Pt Own (Emtricitab- Rilpivir-Tenofo Ala [Odefsey] 200-25-25 Mg Tablet) 1 tab PO DAILY@1200 [facility] Last Admin: 02/11/23 14:20 Dose: 1 tab Documented By: SOFFARamona Oxycodone HCl (Oxycodone Hcl Immed Release 5 Mg Tablet) 5 mg PO Q4H PRN PRN Reason: Pain, Moderate(Pain Scale 4-6) Oxycodone HCl (Oxycodone Hcl Immed Release 5 Mg Tablet) 10 mg PO Q4H PRN PRN Reason: Pain, Severe (Pain Scale 7-10) Last Admin: 02/12/23 07:53 Dose: 10 mg Documented By: ROLLY Pharmacy Consult (Consult Rx Perform Med Rec) 1 each MISCELLANE ONCE PRN PRN Reason: Consult order Pharmacy Consult (Consult Rx Vancomycin Dosing) 1 each MISCELLANE DAILY PRN PRN Reason: Consult order Polyethylene Glycol (Polyethylene Glycol 3350 17 Gm Powd.Pack) 17 gm PO DAILY PRN PRN Reason: Constipation Last Admin: 02/08/23 13:23 Dose: 17 gm Documented By: ESTHER Quetiapine Fumarate (Quetiapine Fumarate 100 Mg Tablet) 100 mg PO DAILY@1800 [facility] Last Admin: 02/11/23 16:59 Dose: 100 mg Documented By: ROLLY Sodium Chloride (0.9 % Sodium Chloride Flush 3 Ml Syringe) 3 ml IVFLUSH QSHIFT [facility] Last Admin: 02/12/23 08:09 Dose: 3 ml Documented By: ROLLY Vitamin D (Cholecalciferol (Vitamin D3) 25 Mcg Tablet) 50 mcg PO DAILY [facility] Last Admin: 02/10/23 08:18 Dose: 50 mcg Documented By: LEIA Labs 02/12/23 06:03 02/12/23 06:03 Labs: Laboratory Results - last 24 hr 02/11/23 02/11/23 02/11/23 09:54 14:33 16:07 Anion Gap 13 Estim Creat Clear Calc 83.8 Estimated GFR > 60 POC Glucose 143 H 232 H Random Glucose 163 H Calcium 8.8 Random Vancomycin 02/11/23 02/12/23 02/12/23 19:43 06:03 06:03 Anion Gap Estim Creat Clear Calc 77.6 Estimated GFR > 60 POC Glucose 359 H* Random Glucose Calcium Random Vancomycin 18.1 02/12/23 02/12/23 07:12 11:11 Anion Gap Estim Creat Clear Calc Estimated GFR POC Glucose 147 H 198 H Random Glucose Calcium Random Vancomycin Assessment and Plan (1) Gangrene of toe of left foot: Status: Acute Plan 57-year-old male with history of diabetes, osteomyelitis who presents with a nonhealing left foot wound/5th toe . Sepsis secondary to nonhealing wound,/diabetic foot ulcer-suspected acute osteomyelitis--see pic (in ED note). s/p bedside debridment by Dr. Wahl and OR debridment 02/04? and probable will need definitive ampuation, s/p angiogram by Dr. Billings on today 02/09. s/p bka ,pathology pending continue IV Abx (Vanco and Zosyn since 02/02), cultures negative thus far patient will be going for bka on 02/11/23. PAD Continue home medications.? Vascular following, angiogram planed for 02/09 ?COLT:? on CKD, improved. DM--fs acceptable continue insulin ?HIV:?continue home medication Hypertension-- hold hydrochlorothiazide and Lasix in the setting of COLT Chronic anemia: s/p 1 unit RBC 02/02, H/H worse, transfused 2 units 02/05, H/H is slightly down likely postop. h/h 8.0/22.9 HypOnatremia:? Mild hypOnatremia possibly related to decreased p.o. intake, resolved DVT prophylaxis :? Chemoprophylaxis on hold because of anemia. compression device need for inpt: IV Abx? for sepsis, likely acute osteomylitis , s/p bka,surgery follow up and plannin Time Spent With Patient Time: Total time managing care of this patient today ____ minutes. Quality Stroke Does the patient have a stroke diagnosis?: No VTE Prior VTE?: No VTE Risk Level:: Medical - moderate - high VTE Device Contraindication: N/A - Device Ordered VTE Drug Contraindication: N/A - Med Ordered
[2023-02-12] MEDS: oxyCODONE HCl Immed Release 5 MG TABLET PO (16:19)
[2023-02-12 16:35] LABS: Glucose, Whole Blood 187 mg/dL (60-115)
--- NOTE | 2023-02-12 16:42 | HO.POSTANES ---
Post Anesthesia Evaluation Post Anesthesia Evaluation Date of Service: 02/12/23 Vital Signs: Vital Signs Temp Pulse Resp BP Pulse Ox O2 Del Method 02/12/23 15:04 98.0 F 75 18 145/68 H 99 Room Air 02/12/23 11:09 97.5 F 74 18 145/69 H 97 Room Air 02/12/23 07:09 97.1 F 79 18 147/77 H 98 Room Air Anesthesia: General LMA Mental Status: Awake Pain Control: Satisfactory Nausea/Vomiting: None Hydration: Adequate Anesthesia-Related Issues: No Anes. Related Issues
[2023-02-12] MEDS: QUEtiapine Fumarate 100 MG TABLET PO (17:09)
[2023-02-12] MEDS: Insulin Glargine,Hum.rec.anlog 100 UNIT/ML 10 ML VIAL 20 UNIT SUBCUT (20:30)
[2023-02-12 20:42] LABS: Glucose, Whole Blood 262 mg/dL (60-115)
[2023-02-13] VITALS (9 sets, daily range): BP systolic 125–151; BP diastolic 61–76; PULSE 72–79; RESP 16–20; TEMP 35.8–37.2; O2SAT 94–98
[2023-02-13] MEDS: oxyCODONE HCl Immed Release 5 MG TABLET 10 MG PO ×4 (00:30→20:54)
[2023-02-13] MEDS: Piperacillin Sodium/Tazobactam 3.375 GM in 0.9 % Sodium Chloride 50 ML IV ×2 (02:58→08:54)
[2023-02-13 07:11] LABS: Vancomycin Random 15.6 mcg/mL (15-20)
[2023-02-13 07:55] LABS: Glucose, Whole Blood 212 mg/dL (60-115)
[2023-02-13 08:46] LABS: Hemoglobin 7.5 g/dl (14.0-18.0)
[2023-02-13] MEDS: methADONE HCl 20 MG/2 ML ORAL.CONC 30 MG PO (08:52)
[2023-02-13] MEDS: Aspirin Enteric Coated 81 MG TABLET.DR PO (08:53)
[2023-02-13] MEDS: Morphine Sulfate 4 MG/ML CARTRIDGE IVPUSH (08:53)
[2023-02-13] MEDS: amLODIPine Besylate 5 MG TABLET PO (08:53)
[2023-02-13] MEDS: Insulin Lispro 100 UNIT/ML 3 ML VIAL SUBCUT ×8 (08:54→20:47)
[2023-02-13] MEDS: Metoprolol Succinate ER 100 MG TAB.ER.24H PO (09:21)
[2023-02-13 11:27] LABS: Glucose, Whole Blood 259 mg/dL (60-115)
--- NOTE | 2023-02-13 11:55 | P.PNIM_ITS ---
Subjective Subjective Date of Service: 02/14/23 Interval History: follow-up on diabetic foot infection, osteomyelitis Review of Systems doing well, no new issues, s/p angiogram ,also had? bka (02/11/23) Has mild pain in the BKA site, denies any shortness of breath or chest pain. Physical Exam Vital Signs: Vital Signs: Last Vital Signs Temp 97.3 F 02/13/23 10:56 Pulse 78 02/13/23 10:56 Resp 18 02/13/23 10:56 BP 125/74 02/13/23 10:56 Pulse Ox 96 02/13/23 10:56 O2 Del Method Room Air 02/13/23 10:56 BMI result Body Mass Index 29.2 General: AO X 3, no acute distress Resp:? CTA bilateral CVS: S1,S2,RRR GI: +BS, NT, no distention Skin: s/p left bka ,wrapped . Neuro:? motor grossly intact Psych: appropriate affect Objective Data Active Medications Acetaminophen (Acetaminophen 325 Mg Tablet) 650 mg PO Q6H PRN PRN Reason: Pain, Mild (Pain Scale 1-3) Last Admin: 02/12/23 11:31 Dose: 650 mg Documented By: ROLLY Amlodipine Besylate (Amlodipine Besylate 5 Mg Tablet) 5 mg PO DAILY [facility]; Protocol Last Admin: 02/13/23 08:53 Dose: 5 mg Documented By: ROLLY Aspirin (Aspirin Enteric Coated 81 Mg Tablet.) 81 mg PO DAILY [facility] Last Admin: 02/13/23 08:53 Dose: 81 mg Documented By: ROLLY Clopidogrel Bisulfate (Clopidogrel Bisulfate 75 Mg Tablet) 75 mg PO DAILY [facility] Last Admin: 02/11/23 07:50 Dose: Not Given Documented By: OTF Non-Admin Reason: NPO Dextrose (Dextrose 50 % 25 Gm/50 Ml Syringe) 25 gm IVPUSH Q15M PRN; Protocol PRN Reason: per Hypoglycemia Standing Ord. Glucose (Glucose Gel 15 Gm Gel..Gram.) 15 gm PO Q15M PRN; Protocol PRN Reason: per Hypoglycemia Standing Ord. Piperacillin Sod/Tazobactam (Sod 3.375 gm/ Sodium Chloride) 50 mls @ 100 mls/hr IV Q6H [facility] Last Infusion: 02/13/23 09:56 Dose: 0 mls/hr Documented By: ROLLY Insulin Glargine (Insulin Glargine,Hum.Rec.Anlog 100 Unit/Ml 10 Ml Vial) 20 unit SUBCUT BEDTIME [facility] Last Admin: 02/12/23 20:30 Dose: 20 unit Documented By: BAILEE Insulin Human Lispro (Insulin Lispro 100 Unit/Ml 3 Ml Vial) 0 unit SUBCUT QIDACHS [facility]; Protocol Last Admin: 02/13/23 08:55 Dose: 4 unit Documented By: ROLLY Insulin Human Lispro (Insulin Lispro 100 Unit/Ml 3 Ml Vial) 5 unit SUBCUT QIDACHS [facility] Last Admin: 02/13/23 08:54 Dose: 5 unit Documented By: ROLLY Magnesium Hydroxide (Milk Of Magnesia 30 Ml Oral.Susp) 30 ml PO DAILY PRN PRN Reason: Constipation Methadone HCl (Methadone Hcl 20 Mg/2 Ml Oral.Conc) 30 mg PO DAILY [facility] Last Admin: 02/13/23 08:52 Dose: 30 mg Documented By: ROLLY Metoprolol Succinate (Metoprolol Succinate Er 100 Mg Tab.Er.24h) 100 mg PO DAILY [facility]; Protocol Last Admin: 02/13/23 09:21 Dose: 100 mg Documented By: ROLLY Morphine Sulfate (Morphine Sulfate 4 Mg/Ml Cartridge) 4 mg IVPUSH Q4H PRN; Protocol PRN Reason: Pain, Severe (Pain Scale 7-10) Last Admin: 02/13/23 08:53 Dose: 4 mg Documented By: ROLLY Nicotine (Nicotine 21 Mg Patch.Td24) 21 mg TRANSDERMA DAILY [facility] Last Admin: 02/13/23 09:21 Dose: Not Given Documented By: ROLLY Non-Admin Reason: Patient Refused Pt Own (Emtricitab- Rilpivir-Tenofo Ala [Odefsey] 200-25-25 Mg Tablet) 1 tab PO DAILY@1200 [facility] Last Admin: 02/12/23 13:33 Dose: 1 tab Documented By: ROLLY Oxycodone HCl (Oxycodone Hcl Immed Release 5 Mg Tablet) 5 mg PO Q4H PRN PRN Reason: Pain, Moderate(Pain Scale 4-6) Last Admin: 02/12/23 16:19 Dose: 5 mg Documented By: ROLLY Oxycodone HCl (Oxycodone Hcl Immed Release 5 Mg Tablet) 10 mg PO Q4H PRN PRN Reason: Pain, Severe (Pain Scale 7-10) Last Admin: 02/13/23 04:27 Dose: 10 mg Documented By: BAILEE Pharmacy Consult (Consult Rx Perform Med Rec) 1 each MISCELLANE ONCE PRN PRN Reason: Consult order Polyethylene Glycol (Polyethylene Glycol 3350 17 Gm Powd.Pack) 17 gm PO DAILY PRN PRN Reason: Constipation Last Admin: 02/08/23 13:23 Dose: 17 gm Documented By: ESTHER Quetiapine Fumarate (Quetiapine Fumarate 100 Mg Tablet) 100 mg PO DAILY@1800 [facility] Last Admin: 02/12/23 17:09 Dose: 100 mg Documented By: ROLLY Sodium Chloride (0.9 % Sodium Chloride Flush 3 Ml Syringe) 3 ml IVFLUSH QSHIFT [facility] Last Admin: 02/13/23 08:57 Dose: 3 ml Documented By: ROLLY Vitamin D (Cholecalciferol (Vitamin D3) 25 Mcg Tablet) 50 mcg PO DAILY [facility] Last Admin: 02/10/23 08:18 Dose: 50 mcg Documented By: COTEMA Labs 02/13/23 08:20 02/12/23 06:03 Labs: Laboratory Results - last 24 hr 02/12/23 02/12/23 02/13/23 16:25 20:39 06:30 POC Glucose 187 H 262 H Random Vancomycin 15.6 02/13/23 02/13/23 07:44 10:59 POC Glucose 212 H 259 H Random Vancomycin Assessment and Plan (1) Gangrene of toe of left foot: Status: Acute Plan 57-year-old male with history of diabetes, osteomyelitis who presents with a nonhealing left foot wound/5th toe . Sepsis secondary to nonhealing wound,/diabetic foot ulcer-suspected acute osteomyelitis--see pic (in ED note). s/p bedside debridment by Dr. Wahl and OR debridment 02/04? and probable will need definitive ampuation, s/p angiogram by Dr. Billings on today 02/09. s/p bka ,pathology pending of antibiotics since has bka, cultures negative thus far stop vanco since as bka on 02/11/23. Id and surgery follow up PAD Continue home medications.? Vascular following, angiogram planed for 02/09 ?COLT:? on CKD, improved. DM--fs acceptable continue insulin ?HIV:?continue home medication Hypertension-- hold hydrochlorothiazide and Lasix in the setting of COLT Chronic anemia: s/p 1 unit RBC 02/02, H/H worse, transfused 2 units 02/05, H/H is slightly down likely postop. h/h trending down postop added 1 prbc HypOnatremia:? Mild hypOnatremia possibly related to decreased p.o. intake, resolved DVT prophylaxis :? Chemoprophylaxis on hold because of anemia. compression device need for inpt: awaiting rehab placement Time Spent With Patient Time: Total time managing care of this patient today ____ minutes. Quality Stroke Does the patient have a stroke diagnosis?: No VTE Prior VTE?: No VTE Risk Level:: Medical - moderate - high VTE Device Contraindication: N/A - Device Ordered VTE Drug Contraindication: N/A - Med Ordered
[2023-02-13] MEDS: Acetaminophen 325 MG TABLET 650 MG PO (12:29)
[2023-02-13 13:31] LABS: Anion Gap 12 (12-20); Blood Urea Nitrogen 16 mg/dL (9-16); Calcium 8.6 mg/dL (8.4-10.2); Carbon Dioxide 27 mmol/L (22-29); Chloride 105 mmol/L (96-108); Creatinine Clr Calc Pharmacy 76.2; Estimated Glomerular Filt Rate > 60; Glucose Random 250 mg/dL (60-115); Potassium 3.1 mmol/L (3.3-5.1); Sodium 141 mmol/L (135-145)
--- NOTE | 2023-02-13 14:03 | P.PNGS_ITS ---
Subjective Subjective Date of Service: 02/13/23 Interval history: says he is sore on the BKA site no events reported no other complaints Physical Exam Vital Signs: Vital Signs: Last Vital Signs Temp 98.9 F 02/13/23 13:18 Pulse 75 02/13/23 13:18 Resp 18 02/13/23 13:18 BP 139/63 02/13/23 13:18 Pulse Ox 96 02/13/23 10:56 O2 Del Method Room Air 02/13/23 10:56 BMI result Body Mass Index 29.2 Const: General: comfortable and no acute distress Resp: Effort & Inspection: normal respiratory effort Extrem: Other: BKA on the left, clean and dry, no evidence of infection, flaps viable, no bleeding Objective Data Active Medications Acetaminophen (Acetaminophen 325 Mg Tablet) 650 mg PO Q6H PRN PRN Reason: Pain, Mild (Pain Scale 1-3) Last Admin: 02/12/23 11:31 Dose: 650 mg Documented By: ROLLY Amlodipine Besylate (Amlodipine Besylate 5 Mg Tablet) 5 mg PO DAILY [facility]; Protocol Last Admin: 02/13/23 08:53 Dose: 5 mg Documented By: ROLLY Aspirin (Aspirin Enteric Coated 81 Mg Tablet.) 81 mg PO DAILY [facility] Last Admin: 02/13/23 08:53 Dose: 81 mg Documented By: ROLLY Clopidogrel Bisulfate (Clopidogrel Bisulfate 75 Mg Tablet) 75 mg PO DAILY [facility] Last Admin: 02/11/23 07:50 Dose: Not Given Documented By: OTF Non-Admin Reason: NPO Dextrose (Dextrose 50 % 25 Gm/50 Ml Syringe) 25 gm IVPUSH Q15M PRN; Protocol PRN Reason: per Hypoglycemia Standing Ord. Glucose (Glucose Gel 15 Gm Gel..Gram.) 15 gm PO Q15M PRN; Protocol PRN Reason: per Hypoglycemia Standing Ord. Piperacillin Sod/Tazobactam (Sod 3.375 gm/ Sodium Chloride) 50 mls @ 100 mls/hr IV Q6H [facility] Last Infusion: 02/13/23 09:56 Dose: 0 mls/hr Documented By: ROLLY Insulin Glargine (Insulin Glargine,Hum.Rec.Anlog 100 Unit/Ml 10 Ml Vial) 20 unit SUBCUT BEDTIME [facility] Last Admin: 02/12/23 20:30 Dose: 20 unit Documented By: BAILEE Insulin Human Lispro (Insulin Lispro 100 Unit/Ml 3 Ml Vial) [facility]; Protocol Last Admin: 02/13/23 12:26 Dose: 6 unit Documented By: ROLLY Insulin Human Lispro (Insulin Lispro 100 Unit/Ml 3 Ml Vial) 5 unit SUBCUT QIDAS [facility] Last Admin: 02/13/23 12:28 Dose: 5 unit Documented By: ROLLY Magnesium Hydroxide (Milk Of Magnesia 30 Ml Oral.Susp) 30 ml PO DAILY PRN PRN Reason: Constipation Methadone HCl (Methadone Hcl 20 Mg/2 Ml Oral.Conc) 30 mg PO DAILY [facility] Last Admin: 02/13/23 08:52 Dose: 30 mg Documented By: ROLLY Metoprolol Succinate (Metoprolol Succinate Er 100 Mg Tab.Er.24h) 100 mg PO DAILY [facility]; Protocol Last Admin: 02/13/23 09:21 Dose: 100 mg Documented By: ROLLY Morphine Sulfate (Morphine Sulfate 4 Mg/Ml Cartridge) 4 mg IVPUSH Q4H PRN; Protocol PRN Reason: Pain, Severe (Pain Scale 7-10) Last Admin: 02/13/23 08:53 Dose: 4 mg Documented By: ROLLY Nicotine (Nicotine 21 Mg Patch.Td24) 21 mg TRANSDERMA DAILY [facility] Last Admin: 02/13/23 09:21 Dose: Not Given Documented By: ROLLY Non-Admin Reason: Patient Refused Pt Own (Emtricitab- Rilpivir-Tenofo Ala [Odefsey] 200-25-25 Mg Tablet) 1 tab PO DAILY@1200 [facility] Last Admin: 02/13/23 13:26 Dose: 1 tab Documented By: ROLLY Oxycodone HCl (Oxycodone Hcl Immed Release 5 Mg Tablet) 5 mg PO Q4H PRN PRN Reason: Pain, Moderate(Pain Scale 4-6) Last Admin: 02/12/23 16:19 Dose: 5 mg Documented By: ROLLY Oxycodone HCl (Oxycodone Hcl Immed Release 5 Mg Tablet) 10 mg PO Q4H PRN PRN Reason: Pain, Severe (Pain Scale 7-10) Last Admin: 02/13/23 04:27 Dose: 10 mg Documented By: BAILEE Pharmacy Consult (Consult Rx Perform Med Rec) 1 each MISCELLANE ONCE PRN PRN Reason: Consult order Polyethylene Glycol (Polyethylene Glycol 3350 17 Gm Powd.Pack) 17 gm PO DAILY PRN PRN Reason: Constipation Last Admin: 02/08/23 13:23 Dose: 17 gm Documented By: ESTHER Quetiapine Fumarate (Quetiapine Fumarate 100 Mg Tablet) 100 mg PO DAILY@1800 [facility] Last Admin: 02/12/23 17:09 Dose: 100 mg Documented By: ROLLY Sodium Chloride (0.9 % Sodium Chloride Flush 3 Ml Syringe) 3 ml IVFLUSH QSHIFT [facility] Last Admin: 02/13/23 08:57 Dose: 3 ml Documented By: ROLLY Vitamin D (Cholecalciferol (Vitamin D3) 25 Mcg Tablet) 50 mcg PO DAILY [facility] Last Admin: 02/10/23 08:18 Dose: 50 mcg Documented By: COTEMA Labs 02/13/23 08:20 02/13/23 12:30 Labs: Laboratory Results - last 24 hr 02/11/23 02/12/23 02/12/23 09:54 16:25 20:39 Anion Gap Estim Creat Clear Calc Estimated GFR POC Glucose 187 H 262 H Random Glucose Calcium Random Vancomycin Blood Type A Negative Antibody Screen NEGATIVE Crossmatch See Detail 02/13/23 02/13/23 02/13/23 06:30 07:44 10:59 Anion Gap Estim Creat Clear Calc Estimated GFR POC Glucose 212 H 259 H Random Glucose Calcium Random Vancomycin 15.6 Blood Type Antibody Screen Crossmatch 02/13/23 12:30 Anion Gap 12 Estim Creat Clear Calc 76.2 Estimated GFR > 60 POC Glucose Random Glucose 250 H Calcium 8.6 Random Vancomycin Blood Type Antibody Screen Crossmatch Procedures Date of Service Date of Service: 02/13/23 Progress Note: A&P Assessment and plan (1) Status post below-knee amputation of left lower extremity: Status: Acute Assessment and Plan: I have changed his dressings thick fluffy dressings applied stump wrapped in Kerlix and Garry bandage continue daily wound care with thick fluffy dressings pain management okay to DC home once pain well controlled with good wound care - dry dressings daily with thick fluffy gauze, Kerlix and Garry bandage if discharge, I will see him in the office for a follow-up to remove navdeep Time Spent With Patient Time: Total time managing care of this patient today ____ minutes. Quality Stroke Does the patient have a stroke diagnosis?: No VTE Prior VTE?: No VTE Risk Level:: Medical - moderate - high VTE Device Contraindication: N/A - Device Ordered VTE Drug Contraindication: N/A - Med Ordered
[2023-02-13] MEDS: Potassium Chloride Packet 20 MEQ PACKET 40 MEQ PO (14:43)
--- NOTE | 2023-02-13 16:07 | MHC.CM.PN ---
EMR reviewed and per MD rounds, pt medically cleared for D/C to STR. [facility] following and were updated and state they may be able to accept pt over the weekend, hospitalist updated. CM will continue to follow.
[2023-02-13 16:14] LABS: Glucose, Whole Blood 267 mg/dL (60-115)
[2023-02-13] MEDS: QUEtiapine Fumarate 100 MG TABLET PO (16:58)
[2023-02-13 20:09] LABS: Glucose, Whole Blood 253 mg/dL (60-115)
[2023-02-13] MEDS: Insulin Glargine,Hum.rec.anlog 100 UNIT/ML 10 ML VIAL 20 UNIT SUBCUT (20:47)
[2023-02-14] MEDS: oxyCODONE HCl Immed Release 5 MG TABLET 10 MG PO ×5 (02:16→23:54)
[2023-02-14 03:16] VITALS: BP 146/59; PULSE 76; RESP 18; TEMP 36.3; O2SAT 95
[2023-02-14 07:12] LABS: Glucose, Whole Blood 131 mg/dL (60-115)
[2023-02-14] MEDS: methADONE HCl 20 MG/2 ML ORAL.CONC 30 MG PO (07:46)
[2023-02-14] MEDS: Insulin Lispro 100 UNIT/ML 3 ML VIAL SUBCUT ×7 (07:46→22:10)
[2023-02-14] MEDS: amLODIPine Besylate 5 MG TABLET PO (07:46)
[2023-02-14 07:47] VITALS: BP 157/82; PULSE 83; RESP 20; TEMP 36.6; O2SAT 96
[2023-02-14] MEDS: Aspirin Enteric Coated 81 MG TABLET.DR PO (07:47)
[2023-02-14 08:09] LABS: Hematocrit 24.8 % (42.0-52.0); Hemoglobin 8.3 g/dl (14.0-18.0)
[2023-02-14 08:17] LABS: Potassium 3.3 mmol/L (3.3-5.1)
[2023-02-14] MEDS: Clopidogrel Bisulfate 75 MG TABLET PO (10:12)
--- NOTE | 2023-02-14 10:21 | MHC.CM.PN ---
Per MD, Patient is medically cleared for dc to SNF/STR today. CM has asked [facility] if they have a bed available today and if they are able to get CCA on a Thursday. CM awaits response.
[2023-02-14 11:58] LABS: Glucose, Whole Blood 211 mg/dL (60-115)
[2023-02-14 11:59] VITALS: BP 162/69; PULSE 81; RESP 18; TEMP 36.6; O2SAT 96
[2023-02-14 15:38] LABS: Glucose, Whole Blood 234 mg/dL (60-115)
[2023-02-14 16:00] VITALS: BP 153/73; PULSE 76; RESP 18; TEMP 36.4; O2SAT 96
[2023-02-14] MEDS: QUEtiapine Fumarate 100 MG TABLET PO (16:50)
[2023-02-14] MEDS: oxyCODONE HCl Immed Release 5 MG TABLET PO (19:42)
[2023-02-14 19:46] VITALS: BP 142/71; PULSE 18; RESP 18; TEMP 36.4; O2SAT 96
[2023-02-14 21:36] LABS: Glucose, Whole Blood 258 mg/dL (60-115)
[2023-02-14] MEDS: Insulin Glargine,Hum.rec.anlog 100 UNIT/ML 10 ML VIAL 20 UNIT SUBCUT (22:10)
[2023-02-14 23:11] VITALS: BP 133/61; PULSE 76; RESP 18; TEMP 36.4; O2SAT 95
[2023-02-15 03:19] VITALS: BP 134/64; PULSE 71; RESP 18; TEMP 36.2; O2SAT 95
[2023-02-15 07:45] LABS: Glucose, Whole Blood 137 mg/dL (60-115)
[2023-02-15 07:47] VITALS: BP 145/65; PULSE 78; RESP 20; TEMP 37.5; O2SAT 96
[2023-02-15] MEDS: Insulin Lispro 100 UNIT/ML 3 ML VIAL SUBCUT ×7 (07:53→21:40)
[2023-02-15] MEDS: methADONE HCl 20 MG/2 ML ORAL.CONC 30 MG PO (07:53)
[2023-02-15] MEDS: oxyCODONE HCl Immed Release 5 MG TABLET 10 MG PO ×3 (07:53→16:04)
[2023-02-15] MEDS: Clopidogrel Bisulfate 75 MG TABLET PO (07:53)
[2023-02-15] MEDS: Aspirin Enteric Coated 81 MG TABLET.DR PO (07:54)
[2023-02-15] MEDS: amLODIPine Besylate 5 MG TABLET PO (07:54)
[2023-02-15] MEDS: Metoprolol Succinate ER 100 MG TAB.ER.24H PO (07:54)
--- NOTE | 2023-02-15 09:21 | P.PNIM_ITS ---
Subjective Subjective Date of Service: 02/15/23 Interval History: follow-up on diabetic foot infection, osteomyelitis Review of Systems doing well, no new issues, s/p angiogram ,also had? bka (02/11/23) Has mild pain in the BKA site, denies any shortness of breath or chest pain. Physical Exam Vital Signs: Vital Signs: Last Vital Signs Temp 99.5 F 02/15/23 07:47 Pulse 78 02/15/23 07:47 Resp 20 02/15/23 07:47 BP 145/65 H 02/15/23 07:47 Pulse Ox 96 02/15/23 07:47 O2 Del Method Room Air 02/15/23 07:47 BMI result Body Mass Index 29.2 General: AO X 3, no acute distress Resp:? CTA bilateral CVS: S1,S2,RRR GI: +BS, NT, no distention Skin: s/p left bka ,wrapped . Neuro:? motor grossly intact Psych: appropriate affect Objective Data Active Medications Acetaminophen (Acetaminophen 325 Mg Tablet) 650 mg PO Q6H PRN PRN Reason: Pain, Mild (Pain Scale 1-3) Last Admin: 02/12/23 11:31 Dose: 650 mg Documented By: ROLLY Amlodipine Besylate (Amlodipine Besylate 5 Mg Tablet) 5 mg PO DAILY [facility]; Protocol Last Admin: 02/15/23 07:54 Dose: 5 mg Documented By: JOSH Aspirin (Aspirin Enteric Coated 81 Mg Tablet.) 81 mg PO DAILY [facility] Last Admin: 02/15/23 07:54 Dose: 81 mg Documented By: JOSH Clopidogrel Bisulfate (Clopidogrel Bisulfate 75 Mg Tablet) 75 mg PO DAILY [facility] Last Admin: 02/15/23 07:53 Dose: 75 mg Documented By: JOSH Dextrose (Dextrose 50 % 25 Gm/50 Ml Syringe) 25 gm IVPUSH Q15M PRN; Protocol PRN Reason: per Hypoglycemia Standing Ord. Glucose (Glucose Gel 15 Gm Gel..Gram.) 15 gm PO Q15M PRN; Protocol PRN Reason: per Hypoglycemia Standing Ord. Insulin Glargine (Insulin Glargine,Hum.Rec.Anlog 100 Unit/Ml 10 Ml Vial) 20 unit SUBCUT BEDTIME [facility] Last Admin: 02/14/23 22:10 Dose: 20 unit Documented By: BRADLEY Insulin Human Lispro (Insulin Lispro 100 Unit/Ml 3 Ml Vial) 0 unit SUBCUT QIDACHS [facility]; Protocol Last Admin: 02/15/23 08:01 Dose: Not Given Documented By: JOSH Non-Admin Reason: No Insulin Coverage Insulin Human Lispro (Insulin Lispro 100 Unit/Ml 3 Ml Vial) 5 unit SUBCUT QIDACHS [facility] Last Admin: 02/15/23 07:53 Dose: 5 unit Documented By: JOSH Magnesium Hydroxide (Milk Of Magnesia 30 Ml Oral.Susp) 30 ml PO DAILY PRN PRN Reason: Constipation Methadone HCl (Methadone Hcl 20 Mg/2 Ml Oral.Conc) 30 mg PO DAILY [facility] Last Admin: 02/15/23 07:53 Dose: 30 mg Documented By: JOSH Metoprolol Succinate (Metoprolol Succinate Er 100 Mg Tab.Er.24h) 100 mg PO DAILY [facility]; Protocol Last Admin: 02/15/23 07:54 Dose: 100 mg Documented By: JOSH Morphine Sulfate (Morphine Sulfate 4 Mg/Ml Cartridge) 4 mg IVPUSH Q4H PRN; Protocol PRN Reason: Pain, Severe (Pain Scale 7-10) Last Admin: 02/13/23 08:53 Dose: 4 mg Documented By: ROLLY Nicotine (Nicotine 21 Mg Patch.Td24) 21 mg TRANSDERMA DAILY [facility] Last Admin: 02/15/23 08:02 Dose: Not Given Documented By: JOSH Non-Admin Reason: Patient Refused Pt Own (Emtricitab- Rilpivir-Tenofo Ala [Odefsey] 200-25-25 Mg Tablet) 1 tab PO DAILY@1200 [facility] Last Admin: 02/14/23 12:47 Dose: 1 tab Documented By: JOSH Oxycodone HCl (Oxycodone Hcl Immed Release 5 Mg Tablet) 5 mg PO Q4H PRN PRN Reason: Pain, Moderate(Pain Scale 4-6) Last Admin: 02/14/23 19:42 Dose: 5 mg Documented By: BRADLEY Oxycodone HCl (Oxycodone Hcl Immed Release 5 Mg Tablet) 10 mg PO Q4H PRN PRN Reason: Pain, Severe (Pain Scale 7-10) Last Admin: 02/15/23 07:53 Dose: 10 mg Documented By: JOSH Pharmacy Consult (Consult Rx Perform Med Rec) 1 each MISCELLANE ONCE PRN PRN Reason: Consult order Polyethylene Glycol (Polyethylene Glycol 3350 17 Gm Powd.Pack) 17 gm PO DAILY PRN PRN Reason: Constipation Last Admin: 02/08/23 13:23 Dose: 17 gm Documented By: ESTHER Quetiapine Fumarate (Quetiapine Fumarate 100 Mg Tablet) 100 mg PO DAILY@1800 [facility] Last Admin: 02/14/23 16:50 Dose: 100 mg Documented By: JOSH Sodium Chloride (0.9 % Sodium Chloride Flush 3 Ml Syringe) 3 ml IVFLUSH QSHIFT [facility] Last Admin: 02/15/23 07:54 Dose: 3 ml Documented By: JOSH Vitamin D (Cholecalciferol (Vitamin D3) 25 Mcg Tablet) 50 mcg PO DAILY [facility] Last Admin: 02/10/23 08:18 Dose: 50 mcg Documented By: LEIA Labs 02/14/23 08:00 02/14/23 08:00 Labs: Laboratory Results - last 24 hr 02/14/23 02/14/23 02/14/23 11:43 15:34 21:28 POC Glucose 211 H 234 H 258 H 02/15/23 07:42 POC Glucose 137 H Assessment and Plan (1) Gangrene of toe of left foot: Status: Acute Plan 57-year-old male with history of diabetes, osteomyelitis who presents with a nonhealing left foot wound/5th toe . Sepsis secondary to nonhealing wound,/diabetic foot ulcer-suspected acute osteomyelitis--see pic (in ED note). s/p bedside debridment by Dr. Wahl and OR debridment 02/04? and probable will need definitive ampuation, s/p angiogram by Dr. Billings on today 02/09. s/p bka ,pathology pending of antibiotics since has bka, cultures negative thus far stop vanco since as bka on 02/11/23. Id and surgery follow up PAD Continue home medications.? Vascular following, angiogram planed for 02/09 ?COLT:? on CKD, improved. DM--fs acceptable continue insulin ?HIV:?continue home medication Hypertension-- hold hydrochlorothiazide and Lasix in the setting of COLT Chronic anemia: s/p 1 unit RBC 02/02, H/H worse, transfused 2 units 02/05, H/H is slightly down likely postop. h/h trending down postop added 1 prbc HypOnatremia:? Mild hypOnatremia possibly related to decreased p.o. intake, resolved DVT prophylaxis :? Chemoprophylaxis on hold because of anemia. compression device need for inpt: awaiting rehab placement management d/w his daughter constantine over the phone . Time Spent With Patient Time: Total time managing care of this patient today ____ minutes. Quality Stroke Does the patient have a stroke diagnosis?: No VTE Prior VTE?: No VTE Risk Level:: Medical - moderate - high VTE Device Contraindication: N/A - Device Ordered VTE Drug Contraindication: N/A - Med Ordered
[2023-02-15 10:59] LABS: Glucose, Whole Blood 192 mg/dL (60-115)
[2023-02-15 11:07] VITALS: BP 150/72; PULSE 71; RESP 20; TEMP 37.5; O2SAT 95
[2023-02-15] MEDS: Morphine Sulfate 4 MG/ML CARTRIDGE IVPUSH ×2 (12:10→16:06)
[2023-02-15 15:41] VITALS: BP 162/75; PULSE 72; RESP 18; TEMP 36.6; O2SAT 96
[2023-02-15 16:22] LABS: Glucose, Whole Blood 219 mg/dL (60-115)
[2023-02-15] MEDS: QUEtiapine Fumarate 100 MG TABLET PO (16:34)
[2023-02-15 19:20] VITALS: BP 140/65; PULSE 71; RESP 18; TEMP 36.4; O2SAT 98
[2023-02-15 20:35] LABS: Glucose, Whole Blood 211 mg/dL (60-115)
[2023-02-15] MEDS: Insulin Glargine,Hum.rec.anlog 100 UNIT/ML 10 ML VIAL 20 UNIT SUBCUT (21:38)
[2023-02-15] MEDS: oxyCODONE HCl Immed Release 5 MG TABLET PO (21:43)
[2023-02-15 23:20] VITALS: BP 147/68; PULSE 71; RESP 18; TEMP 36.5; O2SAT 97
[2023-02-16 03:11] VITALS: BP 151/70; PULSE 77; RESP 18; TEMP 36.7; O2SAT 93
[2023-02-16] MEDS: Morphine Sulfate 4 MG/ML CARTRIDGE IVPUSH ×3 (03:12→13:31)
[2023-02-16 07:27] VITALS: BP 157/71; PULSE 82; RESP 20; TEMP 36.3; O2SAT 96
[2023-02-16 07:55] LABS: Glucose, Whole Blood 136 mg/dL (60-115)
[2023-02-16] MEDS: methADONE HCl 20 MG/2 ML ORAL.CONC 30 MG PO (08:39)
[2023-02-16] MEDS: Metoprolol Succinate ER 100 MG TAB.ER.24H PO (08:39)
[2023-02-16] MEDS: Clopidogrel Bisulfate 75 MG TABLET PO (08:39)
[2023-02-16] MEDS: Aspirin Enteric Coated 81 MG TABLET.DR PO (08:39)
[2023-02-16] MEDS: amLODIPine Besylate 5 MG TABLET PO (08:40)
[2023-02-16] MEDS: oxyCODONE HCl Immed Release 5 MG TABLET 10 MG PO ×3 (10:50→21:54)
--- NOTE | 2023-02-16 11:04 | HO.PM.IMPN ---
Subjective Subjective Date of Service: 02/16/23 Interval History: follow-up on diabetic foot infection, osteomyelitis Review of Systems doing well, no new issues, s/p angiogram ,also had? bka (02/11/23) Has mild pain in the BKA site, denies any shortness of breath or chest pain. Physical Exam Vital Signs: Vital Signs: Last Vital Signs Temp 97.3 F 02/16/23 07:27 Pulse 82 02/16/23 07:27 Resp 20 02/16/23 07:27 BP 157/71 H 02/16/23 07:27 Pulse Ox 96 02/16/23 07:27 O2 Del Method Room Air 02/16/23 07:27 BMI result Body Mass Index 29.2 General: AO X 3, no acute distress Resp:? CTA bilateral CVS: S1,S2,RRR GI: +BS, NT, no distention Skin: s/p left bka ,wrapped . Neuro:? motor grossly intact Psych: appropriate affect Objective Data Active Medications Acetaminophen (Acetaminophen 325 Mg Tablet) 650 mg PO Q6H PRN PRN Reason: Pain, Mild (Pain Scale 1-3) Last Admin: 02/12/23 11:31 Dose: 650 mg Documented By: ROLLY Amlodipine Besylate (Amlodipine Besylate 5 Mg Tablet) 5 mg PO DAILY [facility]; Protocol Last Admin: 02/16/23 08:40 Dose: 5 mg Documented By: MARISELA Aspirin (Aspirin Enteric Coated 81 Mg Tablet.) 81 mg PO DAILY [facility] Last Admin: 02/16/23 08:39 Dose: 81 mg Documented By: MARISELA Clopidogrel Bisulfate (Clopidogrel Bisulfate 75 Mg Tablet) 75 mg PO DAILY [facility] Last Admin: 02/16/23 08:39 Dose: 75 mg Documented By: MARISELA Dextrose (Dextrose 50 % 25 Gm/50 Ml Syringe) 25 gm IVPUSH Q15M PRN; Protocol PRN Reason: per Hypoglycemia Standing Ord. Glucose (Glucose Gel 15 Gm Gel..Gram.) 15 gm PO Q15M PRN; Protocol PRN Reason: per Hypoglycemia Standing Ord. Insulin Glargine (Insulin Glargine,Hum.Rec.Anlog 100 Unit/Ml 10 Ml Vial) 20 unit SUBCUT BEDTIME [facility] Last Admin: 02/15/23 21:38 Dose: 20 unit Documented By: BAILEE Insulin Human Lispro (Insulin Lispro 100 Unit/Ml 3 Ml Vial) 0 unit SUBCUT QIDACHS [facility]; Protocol Last Admin: 02/16/23 08:40 Dose: Not Given Documented By: MARISELA Non-Admin Reason: No Insulin Coverage Insulin Human Lispro (Insulin Lispro 100 Unit/Ml 3 Ml Vial) 5 unit SUBCUT QIDACHS [facility] Last Admin: 02/16/23 08:40 Dose: Not Given Documented By: MARISELA Non-Admin Reason: No Insulin Coverage Magnesium Hydroxide (Milk Of Magnesia 30 Ml Oral.Susp) 30 ml PO DAILY PRN PRN Reason: Constipation Methadone HCl (Methadone Hcl 20 Mg/2 Ml Oral.Conc) 30 mg PO DAILY [facility] Last Admin: 02/16/23 08:39 Dose: 30 mg Documented By: MARISELA Metoprolol Succinate (Metoprolol Succinate Er 100 Mg Tab.Er.24h) 100 mg PO DAILY [facility]; Protocol Last Admin: 02/16/23 08:39 Dose: 100 mg Documented By: MARISELA Morphine Sulfate (Morphine Sulfate 4 Mg/Ml Cartridge) 4 mg IVPUSH Q4H PRN; Protocol PRN Reason: Pain, Severe (Pain Scale 7-10) Last Admin: 02/16/23 08:38 Dose: 4 mg Documented By: MARISELA Nicotine (Nicotine 21 Mg Patch.Td24) 21 mg TRANSDERMA DAILY [facility] Last Admin: 02/16/23 08:51 Dose: Not Given Documented By: MARISELA Non-Admin Reason: Patient Refused Pt Own (Emtricitab- Rilpivir-Tenofo Ala [Odefsey] 200-25-25 Mg Tablet) 1 tab PO DAILY@1200 [facility] Last Admin: 02/15/23 12:23 Dose: Not Given Documented By: JOSH Non-Admin Reason: Med Not Available Oxycodone HCl (Oxycodone Hcl Immed Release 5 Mg Tablet) 5 mg PO Q4H PRN PRN Reason: Pain, Moderate(Pain Scale 4-6) Last Admin: 02/15/23 21:43 Dose: 5 mg Documented By: BAILEE Oxycodone HCl (Oxycodone Hcl Immed Release 5 Mg Tablet) 10 mg PO Q4H PRN PRN Reason: Pain, Severe (Pain Scale 7-10) Last Admin: 02/16/23 10:50 Dose: 10 mg Documented By: MARISELA Pharmacy Consult (Consult Rx Perform Med Rec) 1 each MISCELLANE ONCE PRN PRN Reason: Consult order Polyethylene Glycol (Polyethylene Glycol 3350 17 Gm Powd.Pack) 17 gm PO DAILY PRN PRN Reason: Constipation Last Admin: 02/08/23 13:23 Dose: 17 gm Documented By: ESTHER Quetiapine Fumarate (Quetiapine Fumarate 100 Mg Tablet) 100 mg PO DAILY@1800 [facility] Last Admin: 02/15/23 16:34 Dose: 100 mg Documented By: JOSH Sodium Chloride (0.9 % Sodium Chloride Flush 3 Ml Syringe) 3 ml IVFLUSH QSHIFT [facility] Last Admin: 02/16/23 08:53 Dose: 3 ml Documented By: MARISELA Vitamin D (Cholecalciferol (Vitamin D3) 25 Mcg Tablet) 50 mcg PO DAILY [facility] Last Admin: 02/10/23 08:18 Dose: 50 mcg Documented By: COTEMA Labs 02/14/23 08:00 02/14/23 08:00 Labs: Laboratory Results - last 24 hr 02/15/23 02/15/23 02/16/23 16:19 20:24 07:51 POC Glucose 219 H 211 H 136 H Assessment and Plan (1) Gangrene of toe of left foot: Status: Acute Plan 57-year-old male with history of diabetes, osteomyelitis who presents with a nonhealing left foot wound/5th toe . Sepsis secondary to nonhealing wound,/diabetic foot ulcer-suspected acute osteomyelitis--see pic (in ED note). s/p bedside debridment by Dr. Wahl and OR debridment 02/04? and probable will need definitive ampuation, s/p angiogram by Dr. Billings on today 02/09. s/p bka ,pathology pending of antibiotics since has bka, cultures negative thus far stop vanco since as bka on 02/11/23. Id and surgery follow up PAD:Continue home medications.? Vascular following, angiogram planed for 02/09. ?COLT:? on CKD, improved. DM--fs acceptable continue insulin ?HIV:?continue home medication Hypertension-- hold hydrochlorothiazide and Lasix in the setting of COLT Chronic anemia: s/p 1 unit RBC 7/3, H/H worse, transfused 2 units 7/6, H/H is slightly down likely postop received another 1 [facility] unit 02/13. h/h: 8.3 range moniter h/h HypOnatremia:? Mild hypOnatremia possibly related to decreased p.o. intake, resolved DVT prophylaxis :? Chemoprophylaxis on hold because of anemia. compression device need for inpt: awaiting rehab placement, moniter h/h Time Spent With Patient Time: Total time managing care of this patient today ____ minutes. Quality Stroke Does the patient have a stroke diagnosis?: No VTE Prior VTE?: No VTE Risk Level:: Medical - moderate - high VTE Device Contraindication: N/A - Device Ordered VTE Drug Contraindication: N/A - Med Ordered
[2023-02-16 11:22] LABS: Glucose, Whole Blood 216 mg/dL (60-115)
[2023-02-16 11:40] VITALS: BP 144/70; PULSE 82; RESP 20; TEMP 36.8; O2SAT 99
--- NOTE | 2023-02-16 12:27 | PM.PNGS ---
Subjective Subjective Date of Service: 02/16/23 Interval history: some pain on BKA says he is just waiting for placement to Rehab Physical Exam Vital Signs: Vital Signs: Last Vital Signs Temp 98.3 F 02/16/23 11:40 Pulse 82 02/16/23 11:40 Resp 20 02/16/23 11:40 BP 144/70 H 02/16/23 11:40 Pulse Ox 99 02/16/23 11:40 O2 Del Method Room Air 02/16/23 11:40 BMI result Body Mass Index 29.2 Const: General: comfortable and no acute distress Resp: Effort & Inspection: normal respiratory effort Extrem: Other: L BKA stump clean, dry, some ecchymoses, no bleeding Objective Data Active Medications Acetaminophen (Acetaminophen 325 Mg Tablet) 650 mg PO Q6H PRN PRN Reason: Pain, Mild (Pain Scale 1-3) Last Admin: 02/12/23 11:31 Dose: 650 mg Documented By: ROLLY Amlodipine Besylate (Amlodipine Besylate 5 Mg Tablet) 5 mg PO DAILY [facility]; Protocol Last Admin: 02/16/23 08:40 Dose: 5 mg Documented By: MARISELA Aspirin (Aspirin Enteric Coated 81 Mg Tablet.) 81 mg PO DAILY [facility] Last Admin: 02/16/23 08:39 Dose: 81 mg Documented By: MARISELA Clopidogrel Bisulfate (Clopidogrel Bisulfate 75 Mg Tablet) 75 mg PO DAILY [facility] Last Admin: 02/16/23 08:39 Dose: 75 mg Documented By: MARISELA Dextrose (Dextrose 50 % 25 Gm/50 Ml Syringe) 25 gm IVPUSH Q15M PRN; Protocol PRN Reason: per Hypoglycemia Standing Ord. Glucose (Glucose Gel 15 Gm Gel..Gram.) 15 gm PO Q15M PRN; Protocol PRN Reason: per Hypoglycemia Standing Ord. Insulin Glargine (Insulin Glargine,Hum.Rec.Anlog 100 Unit/Ml 10 Ml Vial) 20 unit SUBCUT BEDTIME [facility] Last Admin: 02/15/23 21:38 Dose: 20 unit Documented By: BAILEE Insulin Human Lispro (Insulin Lispro 100 Unit/Ml 3 Ml Vial) 0 unit SUBCUT QIDACHS [facility]; Protocol Last Admin: 02/16/23 08:40 Dose: Not Given Documented By: MARISELA Non-Admin Reason: No Insulin Coverage Insulin Human Lispro (Insulin Lispro 100 Unit/Ml 3 Ml Vial) 5 unit SUBCUT QIDACHS [facility] Last Admin: 02/16/23 08:40 Dose: Not Given Documented By: MARISELA Non-Admin Reason: No Insulin Coverage Magnesium Hydroxide (Milk Of Magnesia 30 Ml Oral.Susp) 30 ml PO DAILY PRN PRN Reason: Constipation Methadone HCl (Methadone Hcl 20 Mg/2 Ml Oral.Conc) 30 mg PO DAILY [facility] Last Admin: 02/16/23 08:39 Dose: 30 mg Documented By: MARISELA Metoprolol Succinate (Metoprolol Succinate Er 100 Mg Tab.Er.24h) 100 mg PO DAILY [facility]; Protocol Last Admin: 02/16/23 08:39 Dose: 100 mg Documented By: MARISELA Morphine Sulfate (Morphine Sulfate 4 Mg/Ml Cartridge) 4 mg IVPUSH Q4H PRN; Protocol PRN Reason: Pain, Severe (Pain Scale 7-10) Last Admin: 02/16/23 08:38 Dose: 4 mg Documented By: MARISELA Nicotine (Nicotine 21 Mg Patch.Td24) 21 mg TRANSDERMA DAILY [facility] Last Admin: 02/16/23 08:51 Dose: Not Given Documented By: MARISELA Non-Admin Reason: Patient Refused Pt Own (Emtricitab- Rilpivir-Tenofo Ala [Odefsey] 200-25-25 Mg Tablet) 1 tab PO DAILY@1200 [facility] Last Admin: 02/15/23 12:23 Dose: Not Given Documented By: JOSH Non-Admin Reason: Med Not Available Oxycodone HCl (Oxycodone Hcl Immed Release 5 Mg Tablet) 5 mg PO Q4H PRN PRN Reason: Pain, Moderate(Pain Scale 4-6) Last Admin: 02/15/23 21:43 Dose: 5 mg Documented By: BAILEE Oxycodone HCl (Oxycodone Hcl Immed Release 5 Mg Tablet) 10 mg PO Q4H PRN PRN Reason: Pain, Severe (Pain Scale 7-10) Last Admin: 02/16/23 10:50 Dose: 10 mg Documented By: MARISELA Pharmacy Consult (Consult Rx Perform Med Rec) 1 each MISCELLANE ONCE PRN PRN Reason: Consult order Polyethylene Glycol (Polyethylene Glycol 3350 17 Gm Powd.Pack) 17 gm PO DAILY PRN PRN Reason: Constipation Last Admin: 02/08/23 13:23 Dose: 17 gm Documented By: ESTHER Quetiapine Fumarate (Quetiapine Fumarate 100 Mg Tablet) 100 mg PO DAILY@1800 [facility] Last Admin: 02/15/23 16:34 Dose: 100 mg Documented By: JOSH Sodium Chloride (0.9 % Sodium Chloride Flush 3 Ml Syringe) 3 ml IVFLUSH QSHIFT [facility] Last Admin: 02/16/23 08:53 Dose: 3 ml Documented By: MARISELA Vitamin D (Cholecalciferol (Vitamin D3) 25 Mcg Tablet) 50 mcg PO DAILY [facility] Last Admin: 02/10/23 08:18 Dose: 50 mcg Documented By: COTEMA Labs 02/14/23 08:00 02/14/23 08:00 Labs: Laboratory Results - last 24 hr 02/15/23 02/15/23 02/16/23 16:19 20:24 07:51 POC Glucose 219 H 211 H 136 H 02/16/23 11:18 POC Glucose 216 H Procedures Date of Service Date of Service: 02/16/23 Progress Note: A&P Assessment and plan (1) Status post below-knee amputation of left lower extremity: Status: Acute Assessment and Plan: incision clean and dry dressings changed continue dry dressings daily ffup in office in 2 weeks for removal of navdeep Time Spent With Patient Time: Total time managing care of this patient today ____ minutes. Quality Stroke Does the patient have a stroke diagnosis?: No VTE Prior VTE?: No VTE Risk Level:: Medical - moderate - high VTE Device Contraindication: N/A - Device Ordered VTE Drug Contraindication: N/A - Med Ordered
[2023-02-16] MEDS: Insulin Lispro 100 UNIT/ML 3 ML VIAL SUBCUT ×6 (13:31→21:56)
[2023-02-16 15:04] VITALS: BP 131/62; PULSE 73; RESP 17; TEMP 35.9; O2SAT 97
[2023-02-16 16:14] LABS: Glucose, Whole Blood 278 mg/dL (60-115)
[2023-02-16] MEDS: QUEtiapine Fumarate 100 MG TABLET PO (16:58)
[2023-02-16 18:55] VITALS: BP 156/74; PULSE 82; RESP 17; TEMP 37.1; O2SAT 98
[2023-02-16] MEDS: Morphine Sulfate 2 MG/ML CARTRIDGE IVPUSH (18:57)
[2023-02-16 19:47] LABS: Glucose, Whole Blood 219 mg/dL (60-115)
[2023-02-16] MEDS: Insulin Glargine,Hum.rec.anlog 100 UNIT/ML 10 ML VIAL 20 UNIT SUBCUT (21:57)
[2023-02-16 23:38] VITALS: BP 176/74; PULSE 75; RESP 16; TEMP 36.2; O2SAT 98
[2023-02-17 04:00] VITALS: BP 142/67; PULSE 80; RESP 16; TEMP 36; O2SAT 95
[2023-02-17 06:56] LABS: Hematocrit 24.1 % (42.0-52.0); Hemoglobin 8.3 g/dl (14.0-18.0)
[2023-02-17 07:40] LABS: Glucose, Whole Blood 127 mg/dL (60-115)
[2023-02-17 07:55] VITALS: BP 153/73; PULSE 85; RESP 20; TEMP 36.5; O2SAT 96
[2023-02-17] MEDS: methADONE HCl 20 MG/2 ML ORAL.CONC 30 MG PO (07:58)
[2023-02-17] MEDS: amLODIPine Besylate 5 MG TABLET PO (07:58)
[2023-02-17] MEDS: Aspirin Enteric Coated 81 MG TABLET.DR PO (07:58)
[2023-02-17] MEDS: Clopidogrel Bisulfate 75 MG TABLET PO (07:58)
[2023-02-17] MEDS: Metoprolol Succinate ER 100 MG TAB.ER.24H PO (07:58)
--- NOTE | 2023-02-17 08:24 | MHC.CM.PN ---
CM called [facility]/[place] @ [phone] and had to leave a message for Matcher/Irina, requesting assistance in getting Patient Guest dosing at [facility]/[place], while Patient is receiving STR @ [facility]. CM awaits a return call from Irina.
--- NOTE | 2023-02-17 09:20 | P.PNIM_ITS ---
Subjective Subjective Date of Service: 02/17/23 Interval History: follow-up on diabetic foot infection, osteomyelitis and left bka Physical Exam Vital Signs: Vital Signs: Last Vital Signs Temp 97.7 F 02/17/23 07:55 Pulse 85 02/17/23 07:55 Resp 20 02/17/23 07:55 BP 153/73 H 02/17/23 07:55 Pulse Ox 96 02/17/23 07:55 O2 Del Method Room Air 02/17/23 07:55 BMI result Body Mass Index 29.2 Const: Other: General: AO X 3, no acute distress Resp: CTA bilateral CVS: S1,S2,RRR GI: +BS, NT, no distention Skin: left bka site d/c/i Neuro: motor grossly intact Psych: appropriate affect Objective Data Active Medications Acetaminophen (Acetaminophen 325 Mg Tablet) 650 mg PO Q6H PRN PRN Reason: Pain, Mild (Pain Scale 1-3) Last Admin: 02/12/23 11:31 Dose: 650 mg Documented By: ROLLY Amlodipine Besylate (Amlodipine Besylate 5 Mg Tablet) 5 mg PO DAILY [facility]; Protocol Last Admin: 02/17/23 07:58 Dose: 5 mg Documented By: CRUZ Aspirin (Aspirin Enteric Coated 81 Mg Tablet.) 81 mg PO DAILY [facility] Last Admin: 02/17/23 07:58 Dose: 81 mg Documented By: CRUZ Clopidogrel Bisulfate (Clopidogrel Bisulfate 75 Mg Tablet) 75 mg PO DAILY [facility] Last Admin: 02/17/23 07:58 Dose: 75 mg Documented By: CRUZ Dextrose (Dextrose 50 % 25 Gm/50 Ml Syringe) 25 gm IVPUSH Q15M PRN; Protocol PRN Reason: per Hypoglycemia Standing Ord. Glucose (Glucose Gel 15 Gm Gel..Gram.) 15 gm PO Q15M PRN; Protocol PRN Reason: per Hypoglycemia Standing Ord. Insulin Glargine (Insulin Glargine,Hum.Rec.Anlog 100 Unit/Ml 10 Ml Vial) 20 unit SUBCUT BEDTIME [facility] Last Admin: 02/16/23 21:57 Dose: 20 unit Documented By: MARISELA Insulin Human Lispro (Insulin Lispro 100 Unit/Ml 3 Ml Vial) 0 unit SUBCUT QIDACHS [facility]; Protocol Last Admin: 02/17/23 07:47 Dose: Not Given Documented By: CRUZ Non-Admin Reason: No Insulin Coverage Insulin Human Lispro (Insulin Lispro 100 Unit/Ml 3 Ml Vial) 5 unit SUBCUT QIDACHS [facility] Last Admin: 02/17/23 07:56 Dose: Not Given Documented By: CRUZ Non-Admin Reason: Patient Condition Contraindication Magnesium Hydroxide (Milk Of Magnesia 30 Ml Oral.Susp) 30 ml PO DAILY PRN PRN Reason: Constipation Methadone HCl (Methadone Hcl 20 Mg/2 Ml Oral.Conc) 30 mg PO DAILY [facility] Last Admin: 02/17/23 07:58 Dose: 30 mg Documented By: CRUZ Metoprolol Succinate (Metoprolol Succinate Er 100 Mg Tab.Er.24h) 100 mg PO DAILY [facility]; Protocol Last Admin: 02/17/23 07:58 Dose: 100 mg Documented By: CRUZ Morphine Sulfate (Morphine Sulfate 2 Mg/Ml Cartridge) 2 mg IVPUSH Q3H PRN; Protocol PRN Reason: Pain, Mild (Pain Scale 1-3) Last Admin: 02/16/23 18:57 Dose: 2 mg Documented By: MARISELA Nicotine (Nicotine 21 Mg Patch.Td24) 21 mg TRANSDERMA DAILY [facility] Last Admin: 02/17/23 07:59 Dose: Not Given Documented By: CRUZ Non-Admin Reason: Patient Refused Pt Own (Emtricitab- Rilpivir-Tenofo Ala [Odefsey] 200-25-25 Mg Tablet) 1 tab PO DAILY@1200 [facility] Last Admin: 02/16/23 13:38 Dose: 1 tab Documented By: MARISELA Oxycodone HCl (Oxycodone Hcl Immed Release 5 Mg Tablet) 10 mg PO Q4H PRN PRN Reason: Pain, Mild (Pain Scale 1-3) Last Admin: 02/16/23 21:54 Dose: 10 mg Documented By: MARISELA Pharmacy Consult (Consult Rx Perform Med Rec) 1 each MISCELLANE ONCE PRN PRN Reason: Consult order Polyethylene Glycol (Polyethylene Glycol 3350 17 Gm Powd.Pack) 17 gm PO DAILY PRN PRN Reason: Constipation Last Admin: 02/08/23 13:23 Dose: 17 gm Documented By: ESTHER Quetiapine Fumarate (Quetiapine Fumarate 100 Mg Tablet) 100 mg PO DAILY@1800 [facility] Last Admin: 02/16/23 16:58 Dose: 100 mg Documented By: MARISELA Sodium Chloride (0.9 % Sodium Chloride Flush 3 Ml Syringe) 3 ml IVFLUSH QSHIFT [facility] Last Admin: 02/17/23 07:58 Dose: 3 ml Documented By: CRUZ Vitamin D (Cholecalciferol (Vitamin D3) 25 Mcg Tablet) 50 mcg PO DAILY [facility] Last Admin: 02/10/23 08:18 Dose: 50 mcg Documented By: DAVIDEMA Labs 02/17/23 06:40 02/14/23 08:00 Labs: Laboratory Results - last 24 hr 02/16/23 02/16/23 02/16/23 11:18 16:05 19:43 POC Glucose 216 H 278 H 219 H 02/17/23 07:36 POC Glucose 127 H Assessment and Plan (1) Gangrene of toe of left foot: Status: Acute Plan 57-year-old male with history of diabetes, osteomyelitis who presents with a nonhealing left foot wound/5th toe . Sepsis secondary to nonhealing wound,/diabetic foot ulcer, and acute osteomyelitis-- s/p bedside debridment by Dr. Wahl and OR debridment 02/04? below-knee amputation, left leg 05/14 no indicati for further Abx PAD:Continue home medications.?Had angiogram on 02/09 ?COLT:? on CKD, resolved. DM- ?HIV:?continue home medication Hypertension-- off HCTZ and Lasix from renal failure but can be restarted Chronic anemia: s/p 1 unit RBC 02/02, H/H worse, transfused 2 units 02/05, H/H is slightly down likely postop received another 1 [facility] unit 02/13. HypOnatremia:? Mild hypOnatremia possibly related to decreased p.o. intake, resolved DVT prophylaxis :? Chemoprophylaxis on hold because of anemia. compression device need for inpt: awaiting rehab placement, moniter h/h Time Spent With Patient Time: Total time managing care of this patient today ____ minutes. Quality Stroke Does the patient have a stroke diagnosis?: No VTE Prior VTE?: No VTE Risk Level:: Medical - moderate - high VTE Device Contraindication: N/A - Device Ordered VTE Drug Contraindication: N/A - Med Ordered
--- NOTE | 2023-02-17 10:14 | MHC.CM.PN ---
CM attempted again to speak with Irina/Weighing Station Operator @ [facility]/[place] @ [phone], but she is in a meeting.EMILIE will follow.
[2023-02-17] MEDS: oxyCODONE HCl Immed Release 5 MG TABLET 10 MG PO ×2 (10:18→16:52)
--- NOTE | 2023-02-17 10:29 | MHC.CM.PN ---
Per EMILIE Healthcare Project Manager, Brock from [facility]/[place] called, would not give the name of the Patient but said it was involving a Methadone Patient, Guest Dosing and [facility]. EMILIE returned Brock's call at [phone] but was only able to leave a message. EMILIE awaits a return call, from Brock.
[2023-02-17 10:52] VITALS: BP 162/74; PULSE 73; RESP 20; TEMP 36.2; O2SAT 94
[2023-02-17 11:19] LABS: Glucose, Whole Blood 284 mg/dL (60-115)
[2023-02-17] MEDS: Insulin Lispro 100 UNIT/ML 3 ML VIAL SUBCUT ×6 (11:45→22:27)
--- NOTE | 2023-02-17 12:22 | MHC.CM.PN ---
Patient typically gets his Methadone from [facility]/[place] @ [phone] and he requires Guest Dosing at [facility]/[place] @ [phone]. A Release of Information is being faxed to CM from [facility]/[place] and CM awaits the receipt of that form for Patient's review.CM will follow. CM Management has been made aware of this process.
--- NOTE | 2023-02-17 13:21 | MHC.CM.PN ---
CM received the Release of Information forms from [facility]/[place], met with Patient, who signed both forms and they have been faxed to Irina at [phone] and uploaded into [employer]. CM will follow.
--- NOTE | 2023-02-17 13:30 | MHC.CM.PN ---
Per food service associate/Kat's suggestion, EMILIE spoke with Pattie from [facility]/[place] @ [phone] and informed her that Release of Information has been faxed to [facility]/[place] and the goal is for Guest Dosing at [facility]/[place]. EMILIE/Anish/Radha is aware.
[2023-02-17 15:02] VITALS: BP 155/68; PULSE 78; RESP 20; TEMP 36.3; O2SAT 99
[2023-02-17 15:44] LABS: Glucose, Whole Blood 247 mg/dL (60-115)
--- NOTE | 2023-02-17 15:50 | MHC.CM.PN ---
CM received a call from Patient's only Contact/Sister/Zoila @ [phone], who indicated that She and Patient prefer for Patient to return home with home PT, rather than going to STR. EMILIE has reached out to MD to consider a PT eval to assist with disposition.CM will follow.
[2023-02-17] MEDS: QUEtiapine Fumarate 100 MG TABLET PO (16:48)
[2023-02-17 19:00] VITALS: BP 137/64; PULSE 73; RESP 20; TEMP 36.4; O2SAT 97
[2023-02-17 19:43] LABS: Glucose, Whole Blood 250 mg/dL (60-115)
[2023-02-17] MEDS: Insulin Glargine,Hum.rec.anlog 100 UNIT/ML 10 ML VIAL 20 UNIT SUBCUT (22:23)
[2023-02-17 23:53] VITALS: BP 147/67; PULSE 72; RESP 18; TEMP 37.1; O2SAT 98
[2023-02-18] MEDS: oxyCODONE HCl Immed Release 5 MG TABLET 10 MG PO ×3 (02:24→15:28)
[2023-02-18 03:14] VITALS: BP 138/65; PULSE 72; RESP 20; TEMP 36.1; O2SAT 95
[2023-02-18 07:27] LABS: Glucose, Whole Blood 108 mg/dL (60-115)
[2023-02-18 07:31] VITALS: BP 152/67; PULSE 75; RESP 17; TEMP 36.9; O2SAT 96
--- NOTE | 2023-02-18 08:02 | PM.EVENT ---
Event Note Date of Service: 02/18/23 Event Note: denies other complaints except for some pain on BKA stump I have been changing his dressings daily incision clean, navdeep intact, mild ecchymosis on stump but no cellulitis or discharge dressings changed again today, stump wrapped with Garry bandage once discharged, I will see him in the office for removal of navdeep doing well overall Time Spent With Patient Time: Total time managing care of this patient today ____ minutes.
[2023-02-18] MEDS: methADONE HCl 20 MG/2 ML ORAL.CONC 30 MG PO (08:06)
[2023-02-18] MEDS: amLODIPine Besylate 5 MG TABLET PO (08:07)
[2023-02-18] MEDS: Clopidogrel Bisulfate 75 MG TABLET PO (08:07)
[2023-02-18] MEDS: Aspirin Enteric Coated 81 MG TABLET.DR PO (08:07)
[2023-02-18] MEDS: Metoprolol Succinate ER 100 MG TAB.ER.24H PO (08:07)
--- NOTE | 2023-02-18 09:30 | P.PNIM_ITS ---
Subjective Subjective Date of Service: 02/18/23 Interval History: follow-up on diabetic foot infection, osteomyelitis and left bka.. no new issues Physical Exam Vital Signs: Vital Signs: Last Vital Signs Temp 98.5 F 02/18/23 07:31 Pulse 75 02/18/23 07:31 Resp 17 02/18/23 07:31 BP 152/67 H 02/18/23 07:31 Pulse Ox 96 02/18/23 07:31 O2 Del Method Room Air 02/18/23 07:31 O2 Flow Rate 97 02/17/23 10:52 BMI result Body Mass Index 29.2 Const: Other: General: AO X 3, no acute distress Resp: CTA bilateral CVS: S1,S2,RRR GI: +BS, NT, no distention Skin: left bka site d/c/i Neuro: motor grossly intact Psych: appropriate affect Objective Data Active Medications Acetaminophen (Acetaminophen 325 Mg Tablet) 650 mg PO Q6H PRN PRN Reason: Pain, Mild (Pain Scale 1-3) Last Admin: 02/12/23 11:31 Dose: 650 mg Documented By: ROLLY Amlodipine Besylate (Amlodipine Besylate 5 Mg Tablet) 5 mg PO DAILY [facility]; Protocol Last Admin: 02/18/23 08:07 Dose: 5 mg Documented By: JO Aspirin (Aspirin Enteric Coated 81 Mg Tablet.) 81 mg PO DAILY [facility] Last Admin: 02/18/23 08:07 Dose: 81 mg Documented By: JO Clopidogrel Bisulfate (Clopidogrel Bisulfate 75 Mg Tablet) 75 mg PO DAILY [facility] Last Admin: 02/18/23 08:07 Dose: 75 mg Documented By: JO Dextrose (Dextrose 50 % 25 Gm/50 Ml Syringe) 25 gm IVPUSH Q15M PRN; Protocol PRN Reason: per Hypoglycemia Standing Ord. Glucose (Glucose Gel 15 Gm Gel..Gram.) 15 gm PO Q15M PRN; Protocol PRN Reason: per Hypoglycemia Standing Ord. Insulin Glargine (Insulin Glargine,Hum.Rec.Anlog 100 Unit/Ml 10 Ml Vial) 20 unit SUBCUT BEDTIME [facility] Last Admin: 02/17/23 22:23 Dose: 20 unit Documented By: ESEQUIEL Insulin Human Lispro (Insulin Lispro 100 Unit/Ml 3 Ml Vial) 0 unit SUBCUT QIDACHS [facility]; Protocol Last Admin: 02/18/23 07:26 Dose: Not Given Documented By: JO Non-Admin Reason: No Insulin Coverage Insulin Human Lispro (Insulin Lispro 100 Unit/Ml 3 Ml Vial) 5 unit SUBCUT [facility] Last Admin: 02/18/23 07:26 Dose: Not Given Documented By: JO Non-Admin Reason: Patient Condition Contraindication Magnesium Hydroxide (Milk Of Magnesia 30 Ml Oral.Susp) 30 ml PO DAILY PRN PRN Reason: Constipation Methadone HCl (Methadone Hcl 20 Mg/2 Ml Oral.Conc) 30 mg PO DAILY [facility] Last Admin: 02/18/23 08:06 Dose: 30 mg Documented By: JO Metoprolol Succinate (Metoprolol Succinate Er 100 Mg Tab.Er.24h) 100 mg PO DAILY [facility]; Protocol Last Admin: 02/18/23 08:07 Dose: 100 mg Documented By: JO Morphine Sulfate (Morphine Sulfate 2 Mg/Ml Cartridge) 2 mg IVPUSH Q3H PRN; Protocol PRN Reason: Pain, Mild (Pain Scale 1-3) Last Admin: 02/16/23 18:57 Dose: 2 mg Documented By: MARISELA Nicotine (Nicotine 21 Mg Patch.Td24) 21 mg TRANSDERMA DAILY [facility] Last Admin: 02/18/23 08:08 Dose: Not Given Documented By: JO Non-Admin Reason: Patient Refused Pt Own (Emtricitab- Rilpivir-Tenofo Ala [Odefsey] 200-25-25 Mg Tablet) 1 tab PO DAILY@1200 [facility] Last Admin: 02/17/23 11:47 Dose: 1 tab Documented By: CRUZ Oxycodone HCl (Oxycodone Hcl Immed Release 5 Mg Tablet) 10 mg PO Q4H PRN PRN Reason: Pain, Mild (Pain Scale 1-3) Last Admin: 02/18/23 08:07 Dose: 10 mg Documented By: JO Pharmacy Consult (Consult Rx Perform Med Rec) 1 each MISCELLANE ONCE PRN PRN Reason: Consult order Polyethylene Glycol (Polyethylene Glycol 3350 17 Gm Powd.Pack) 17 gm PO DAILY PRN PRN Reason: Constipation Last Admin: 02/08/23 13:23 Dose: 17 gm Documented By: HO.RUANES Quetiapine Fumarate (Quetiapine Fumarate 100 Mg Tablet) 100 mg PO DAILY@1800 [facility] Last Admin: 02/17/23 16:48 Dose: 100 mg Documented By: CRUZ Sodium Chloride (0.9 % Sodium Chloride Flush 3 Ml Syringe) 3 ml IVFLUSH QSHIFT [facility] Last Admin: 02/18/23 08:07 Dose: 3 ml Documented By: JO Vitamin D (Cholecalciferol (Vitamin D3) 25 Mcg Tablet) 50 mcg PO DAILY [facility] Last Admin: 02/10/23 08:18 Dose: 50 mcg Documented By: LEIA Labs 02/17/23 06:40 02/14/23 08:00 Labs: Laboratory Results - last 24 hr 02/17/23 02/17/23 02/17/23 10:58 15:37 19:36 POC Glucose 284 H 247 H 250 H 02/18/23 07:08 POC Glucose 108 Assessment and Plan (1) Gangrene of toe of left foot: Status: Acute Plan 57-year-old male with history of diabetes, osteomyelitis who presents with a nonhealing left foot wound/5th toe . Sepsis secondary to nonhealing wound,/diabetic foot ulcer, and acute osteomyelitis-- s/p bedside debridment by Dr. Wahl and OR debridment 02/04? below-knee amputation, left leg 05/14 no indicati for further Abx, wound healing well PAD:Continue home medications.?Had angiogram on 02/09 ?COLT:? on CKD, resolved. DM- continue meds ?HIV:?continue home medication Hypertension-- off HCTZ and Lasix from renal failure but can be restarted Chronic anemia: s/p 1 unit RBC 02/02, H/H worse, transfused 2 units 02/05, H/H is slightly down likely postop received another 1 [facility] unit 02/13. HypOnatremia:? Mild hypOnatremia possibly related to decreased p.o. intake, resolved DVT prophylaxis :? Chemoprophylaxis on hold because of anemia. compression device need for inpt: awaiting rehab placement, moniter h/h Time Spent With Patient Time: Total time managing care of this patient today ____ minutes. Quality Stroke Does the patient have a stroke diagnosis?: No VTE Prior VTE?: No VTE Risk Level:: Medical - moderate - high VTE Device Contraindication: N/A - Device Ordered VTE Drug Contraindication: N/A - Med Ordered
[2023-02-18 11:24] LABS: Glucose, Whole Blood 227 mg/dL (60-115)
[2023-02-18 11:29] VITALS: BP 151/70; PULSE 76; RESP 16; TEMP 36.2; O2SAT 96
[2023-02-18] MEDS: Insulin Lispro 100 UNIT/ML 3 ML VIAL SUBCUT ×2 (11:37→11:38)
[2023-02-18] MEDS: Morphine Sulfate 2 MG/ML CARTRIDGE IVPUSH (11:38)
--- NOTE | 2023-02-18 12:01 | MHC.CM.PN ---
CM awaits PT eval for assistance with safe disposition d/t new (L)BKA and the fact that Patient and his Sister prefer that Patient return home rather than go to STR. EMILIE has made aware x3.
--- NOTE | 2023-02-18 13:01 | PM.DS ---
DS: Providers Provider Date of Service: 02/18/23 Date of admission: 02/02/23 19:03 Primary care physician: Ivon Patterson NP Consults: 02/02/23 19:14 Consult to General Surgery Routine Consulting Provider: [facility] General Surgeons Reason for consultation: foot infection Has provider been notified: No Consult to Infectious Diseases Routine Consulting Provider: [facility] Infectious Disease Reason for consultation: foot cellulitis Consult to Vascular Surgery Routine Consulting Provider: [facility] Vascular Services Reason for consultation: foot infection/pvd Has provider been notified: No 02/04/23 10:25 Consult to Nephrology Routine Consulting Provider: Harry Betancourt Reason for consultation: COLT, ckd Has provider been notified: No DS: Diagnosis Discharge Diagnosis (1) Gangrene of toe of left foot: Status: Acute DS: Summary Hospital Course Hospital Course: 57-year-old male with history of diabetes, osteomyelitis who presents with a nonhealing left foot wound and 5 toe wound that is non healed with antibiotics use in the past. He was septic on presentation and imaging finding was consitent with acute osteomylitis and was initiated on broad spec antibiotics and underwent bed side debridement on admission and another debridment in [place] the next day, unfortunately the wound was extensive and was not deemed viable via antibiotics and therefor amputation a left below amputation was done on 02/11 as next best treatment option. Antibiotics were discontined after ampuation. The wound is healing well. PT has assessed him and he would like to go home. Sepsis secondary to nonhealing wound,/diabetic foot ulcer, and acute osteomyelitis-- s/p bedside debridment by Dr. Wahl and OR debridment 02/04? below-knee amputation, left leg 05/14 no indicati for further Abx, wound healing well PAD:Continue home medications.?Had angiogram on 02/09 ?COLT:? on CKD,? resolved. DM- continue meds ?HIV:?continue home medication Hypertension-- off HCTZ and Lasix from renal failure but can be restarted Chronic anemia: s/p 1 unit RBC /, H/H worse, transfused 2 units 02/05, H/H is slightly down likely postop received another 1 [facility] unit 02/13. HypOnatremia:? Mild hypOnatremia possibly related to decreased p.o. intake, resolved DVT prophylaxis :? Chemoprophylaxis on hold because of anemia. compression mic Time Spent with Patient Time attestation: Total time managing care of this patient today ____ minutes. Discharge coordination time: Greater than 30 minutes Quality: Safe Use of Opioids Does Pt have an Active Cancer Diagnosis on the Problem List?: No Quality: Stroke Does the patient have a stroke diagnosis?: No Physical Exam Vital Signs: Vital Signs: Last Vital Signs Temp 97.2 F 02/18/23 11:29 Pulse 76 02/18/23 11:29 Resp 16 02/18/23 11:29 BP 151/70 H 02/18/23 11:29 Pulse Ox 96 02/18/23 11:29 O2 Del Method Room Air 02/18/23 11:29 O2 Flow Rate 97 02/17/23 10:52 BMI result Body Mass Index 29.2 DS: Data Data Completed and Pending Completed studies during hospitalization [Text1]: Pending at discharge 02/04/23 11:17 Surgical [PTH] Routine 02/11/23 11:17 Surgical [PTH] Routine Procedures Dilation of Right Anterior Tibial Artery, Percutaneous Approach (03/13/21) Dilation of Right Peroneal Artery, Percutaneous Approach (03/13/21) Excision of Left Foot Subcutaneous Tissue and Fascia, Open Approach (12/05/20) Excision of Left Upper Leg Skin, External Approach (12/05/20) Insertion of Infusion Device into Superior Vena Cava, Percutaneous Approach (03/13/21) Replacement of Left Foot Skin with Autologous Tissue Substitute, Partial Thickness, External Approach (12/05/20) Labs on day of discharge: Laboratory Results - last 24 hr 02/17/23 02/17/23 02/18/23 15:37 19:36 07:08 POC Glucose 247 H 250 H 108 02/18/23 11:05 POC Glucose 227 H Discharge Plan Discharge Anticipated Discharge Date/Time: 02/14/23 10:53 Patient Disposition: Home Health Service Discharge Diagnosis: foot osteomyelitis s/p bka. Referrals: [facility] [Other] - 1 Week [facility] [Outside] - 1 Week Ivon Patterson, [employer]PERVIS[employer] [Primary Care Provider] - 1 Week Discharge Medications: Continued lisinopril 5 mg Tablet 5 mg PO DAILY Qty: 30 0RF Protocol: Hold for SBP< HOLD for SBP < : 90 insulin degludec [Tresiba FlexTouch U-100] 100 unit/mL (3 mL) insulin pen 30 unit subcut BEDTIME methadone 10 mg/mL Concentrate 30 mg PO DAILY insulin aspart U-100 [Novolog FlexPen U-100 Insulin] 100 unit/mL (3 mL) insulin pen 10 - 20 unit subcut TIDWM Odefsey 200-25-25 mg tablet 1 tab PO DAILY clopidogrel [Plavix] 75 mg tablet 75 mg PO DAILY Qty: 90 1RF amlodipine 5 mg tablet 5 mg PO DAILY Nicotrol 10 mg cartridge 1 inh INHALATION Q4H PRN (Reason: CRAvings) nicotine 21 mg/24 hr patch 24 hour 1 patch topical DAILY rosuvastatin 20 mg tablet 20 mg PO BEDTIME hydrochlorothiazide 25 mg tablet 25 mg PO DAILY metoprolol succinate 100 mg tablet extended release 24 hr 100 mg PO DAILY quetiapine 100 mg tablet 100 mg PO DAILY@1800 (DME) blood sugar diagnostic Strip See Rx Instructions Not Applicable .MEDSUPPLY Qty: 10 Rx Instructions: As directed aspirin 81 mg tablet,delayed release (DR/EC) 81 mg PO DAILY furosemide 20 mg tablet 20 mg PO DAILY PRN (Reason: swelling) (DME) insulin syringe-needle U-100 1 mL 29 gauge x 1/2 syringe See Rx Instructions .ROUTE TID Qty: 10 Rx Instructions: As directed cholecalciferol (vitamin D3) 50 mcg (2,000 unit) tablet 50 mcg PO DAILY dulaglutide 1.5 mg/0.5 mL pen injector 1.5 mg subcut FR (DME) lancets 33 gauge misc See Rx Instructions Not Applicable .MEDSUPPLY Qty: 100 Rx Instructions: As directed (DME) pen needle, diabetic 32 gauge x 5/32 needle See Rx Instructions .ROUTE .MEDSUPPLY Qty: 50 Rx Instructions: As directed metformin 500 mg tablet extended release 24 hr 1,000 mg PO BID Discharge Orders: Discharge Order (Routine); Ordered 02/18/23 Ordered By: Sukh Soto Diet: Advance to usual diet Activity on Discharge: As tolerated Stand Alone Forms: Patient Portal Discharge page Activity Restrictions/Additional Instructions: Dry dressings daily on the BKA stump with thick gauze and wrap with Garry bandage Okay to get the incision wet Care Plan Goals: full healing of the wound Health Concerns: ampuated wound Plan of Treatment: see above Assessment: See above Discharge Date/Time: 02/18/23 15:39
[2023-02-18 13:03] VITALS: BP 151/70; PULSE 76; O2SAT 96
--- NOTE | 2023-02-18 13:15 | MHC.CM.PN ---
PT is recommending home with home PT. Per MD, Patient is medically cleared for dc to home today with VNA. Patient was active with [facility], who has been notified of today's dc. Per Patient/Sister's request, CM phoned [facility]/Evelin @ [phone] (Funmilayo Hodge)but CM was only able to leave a message. Patient and Patient's Sister will continue to work with Funmilayo toward a Nurse delivering Patient's Methadone to him instead of Patient having to go to the clinic QD. Patient's Sister will provide transportation to home today at 3:30 PM (RN & MD aware).CM addressed IMM with Patient at bedside and original was given to Patient and a copy has been placed on the chart. Patient is very pleased to be going home today.
--- NOTE | 2023-02-18 13:47 | P.F2F_ITS ---
Service Date Service Date: 02/18/23 Encounter Date of encounter: 02/18/23 Reasons for Services Signs and symptoms assessed: amputated limb Reason for longterm: wound care Homebound: Leaving the home is medically contraindicated at this time without the asist of a device and/or another person due th the listed conditions above and below. Reason homebound: unsteady gait / fall risk and fall risk related to blood pressure changes Homebound supporting statement: homebound due to new amputated below the knee limb and needs the assistance of another person Certification: Based on the above findings, I certify that this patient is confined to the home and needs intermittent longterm care, physical therapy and/or speech therapy, or continues to need occupational therapy. The patient is under my care, and I have initiated the establishment of the plan of care. The patient will be followed by a physician who will periodically review the plan of care. Time Spent With Patient Time: Total time managing care of this patient today ____ minutes.
--- NOTE | 2023-02-18 14:55 | MHC.CM.PN ---
CM left a detailed message for [facility] [employer] @ [phone], who was assisting CM with Guest Dosing yesterday, informing him that Patient is returning home today, rather than going to [facility].
== END 2023-02-18 15:39 | disposition home health service (06) | DRG 854 ==
LOC: HO.ED 18:56 → HO.EDOVER 19:20 → HO.IMC 19:43
PROVIDERS: Surgery; Surgery Vascular Surgery; Admitting Provider Internal Medicine; Emergency Provider Internal Medicine; PCP Emergency Medicine; Visit Provider Internal Medicine
PROC: 0Y6Y0Z0 Detachment at Left 5th Toe, Complete, Open Approach (ICD-10-PCS; principal; 2023-02-04 10:30)
PROC: B40D1ZZ Plain Radiography of Aorta and Bilateral Lower Extremity Arteries using Low Osmolar Contrast (ICD-10-PCS; principal; 2023-02-09 12:00)
PROC: 0Y6J0Z2 Detachment at Left Lower Leg, Mid, Open Approach (ICD-10-PCS; CPT 27880; principal; 2023-02-11 11:20)
DX: A41.9 Sepsis, unspecified organism (principal); E11.52 Type 2 diabetes mellitus with diabetic peripheral angiopathy with gangrene; E87.1 Hypo-osmolality and hyponatremia; F11.20 Opioid dependence, uncomplicated; N17.9 Acute kidney failure, unspecified; I70.262 Atherosclerosis of native arteries of extremities with gangrene, left leg; L03.116 Cellulitis of left lower limb; Z21 Asymptomatic human immunodeficiency virus [HIV] infection status; E78.5 Hyperlipidemia, unspecified; F17.210 Nicotine dependence, cigarettes, uncomplicated; Z71.6 Tobacco abuse counseling; E11.69 Type 2 diabetes mellitus with other specified complication; I12.9 Hypertensive chronic kidney disease with stage 1 through stage 4 chronic kidney disease, or unspecified chronic kidney disease; E11.628 Type 2 diabetes mellitus with other skin complications; L97.529 Non-pressure chronic ulcer of other part of left foot with unspecified severity; G89.18 Other acute postprocedural pain; N18.30 Chronic kidney disease, stage 3 unspecified; D64.89 Other specified anemias; E11.22 Type 2 diabetes mellitus with diabetic chronic kidney disease; I77.0 Arteriovenous fistula, acquired; D63.1 Anemia in chronic kidney disease; Z79.02 Long term (current) use of antithrombotics/antiplatelets; Z79.82 Long term (current) use of aspirin; Z79.4 Long term (current) use of insulin; Z79.899 Other long term (current) drug therapy
CPT/HCPCS: 36247; 36415; 73620; 75630; 76937; 80048; 80051; 80053; 80202; 81001; 81003; 82565; 82947; 83036; 83605; 83735; 84132; 84156; 84300; 85014; 85018; 85025; 85027; 85652; 86140; 86850; 86900; 86901; 86923; 87040; 88305; 88307; 88311; 97162; 99152; 99153; 99285; J2250; J2270; J2543; J2795; J3370; J3371; P9016; P9047

== ENCOUNTER → 2023-02-02 19:03 | Outpatient (BNV) | payer OTHER, SELFPAY | PROVIDERS: Admitting Provider Internal Medicine; Emergency Provider Internal Medicine; Visit Provider Surgery Vascular Surgery | DX: I73.9 Peripheral vascular disease, unspecified (principal) | CPT/HCPCS: 36217; 75625; 75710; 76937; 99152; 99222; 99232 ==

== ENCOUNTER → 2023-02-02 19:03 | Outpatient (BNV) | payer OTHER, SELFPAY | PROVIDERS: Admitting Provider Internal Medicine; Emergency Provider Internal Medicine; Visit Provider Internal Medicine | DX: I96 Gangrene, not elsewhere classified (principal) | CPT/HCPCS: 99223; 99231; 99232; 99239; G0180 ==

== ENCOUNTER → 2023-02-02 19:03 | Outpatient (BNV) | payer OTHER, SELFPAY | PROVIDERS: Admitting Provider Internal Medicine; Emergency Provider Internal Medicine; Visit Provider Surgery | DX: T87.54 Necrosis of amputation stump, left lower extremity (principal); I96 Gangrene, not elsewhere classified | CPT/HCPCS: 27880; 28810; 97597; 99024; 99223; 99232; 99499 ==

== ENCOUNTER 2023-03-03 14:56 | Outpatient (AMB) | payer OTHER, SELFPAY ==
--- NOTE | 2023-03-03 14:53 | A.OFFVIS_ITS ---
Intake Intake Visit Reasons: 2 week follow up angio/hosp admit Intake Note: 2 week follow up Left Angio 02/09/23, pt seeing Dr. Wahl for non-healing Left BKA, pt is now at home. VNA Thu, thursday and Thursday. Pt states no complaints Accompanied by: Sister Allergies trazodone [TRAZODONE] Allergy (Unknown, Verified 03/03/23 15:01) UNKNOWN HPI 2 week follow up angio/hosp admit HPI Details Very pleasant 57-year-old gentleman presents for follow-up regarding diagnostic angiogram. He had been seen by us in the past in was noted to have nonhealing ulcer of the left lower extremity. After evaluation and treatment he was determined that the leg was nonsalvageable and he had undergone a left BKA with General surgery. Now presents for arterial follow-up. He is being maintained on aspirin and statin. [facility] Medical History Cirrhosis COVID-19 vaccine administered Depression Diabetes Gangrene of left foot Gangrene of toe of left foot GERD (gastroesophageal reflux disease) Hepatitis History of hyperbaric oxygen therapy HIV (human immunodeficiency virus infection) Hx of drug dependence Hyperlipidemia Hypertension Osteomyelitis Toe ulcer Surgical History Below-knee amputation of left lower extremity (~02/11/23) H/O skin graft S/P angiogram of extremity Status post debridement Family History Father Diabetes HTN (hypertension) Mother HTN (hypertension) Daughter No problems noted. Social History Household Members: Family Housing: House Are you a primary child care specialist to a significant other at home: No Do you presently have visiting nurse or other home services: Yes Alcohol intake: never Patient Tobacco Use Status: Current everyday Tobacco user Tobacco use type: Cigarette Cigarette Packs Per Day: 0 Cigarettes Per Day: 10 Years Smoked: 35 e-Cigarette/Vaping Use: Never Used Second Hand Smoke Exposure: No Substance Use Type: Former Substance User and Heroin Advance Directives Date on File: 03/13/21 service: No Current occupational status: disabled Review of Systems Const All systems reviewed & are unremarkable except as noted in HPI and below Reports no additional complaints ENT Reports Normal hearing present Card Denies chest pain, Denies chest pain at rest, Denies chest pain with activity and Denies pedal edema Resp Denies cough GI Denies abdominal pain Musc Denies abnormal gait, Denies muscle cramps and Denies radiating pain into limb Skin/Breast Denies skin ulcer and Denies wounds Neuro Reports Normal hearing present and Denies abnormal gait Psych Reports no additional complaints Physical Exam Const General: cooperative, healthy appearing and comfortable Orientation/consciousness: oriented to person, oriented to place and oriented to time HEENT Head: Yes normal to inspection Neck Neck: Yes normal visual inspection Carotids: no bruits Chest Chest palpation & inspection: normal inspection of the chest Resp Effort & Inspection: normal respiratory effort and able to speak in complete sentences Auscultation: clear to auscultation bilaterally, no crackles, no rales, no rhonchi and no wheezes Cardio Other: Right side DP signal Rate: regular rate Rhythm: regular rhythm Heart sounds: S1 normal heart sound present and S2 normal heart sound present Bruits: no carotid bruits GI Inspection: Yes normal to inspection Skin Other: Left BKA dressing clean dry intact Wounds: no wounds Hair: normal Neuro General: oriented to person, oriented to place and oriented to time Cranial nerves: Yes CN's II-XII intact bilaterally and Yes Normal hearing present Cognition (Neuro): normal cognition Motor exam (neuro): 5/5 motor strength present throughout Extrem Other: venous exam: No significant superficial varicosities or spider telangiectasias, minimal edema General: No clubbing, No cyanosis and No edema Psych Appearance: grossly normal Mental Status: mental status grossly normal Speech and movement: Normal speech and movement present Assessment & Plan Assessment & Plan (1) PAD (peripheral artery disease): Comment: 03/19/2021 - angioplasty of right anterior tibial and peroneal artery 04/22/2021 - right 5th toe amputation 02/09/2023 - diagnostic angiogram 02/11/2023 - left BKA by General surgery Code(s): I73.9 - Peripheral vascular disease, unspecified Plan: In short patient appears to be doing relatively well with his amputation. Appears to be in good spirits. Will plan for surveillance follow-up of the right lower extremity. We did discuss routine risk factor modification. He will follow up with us in approximately 6 months time. Orders: Orders US arterial duplex LE RT 6 Months I73.9 - Peripheral vascular disease, unspecified Coding Level of Care Code Est Pt Level 4 (24789) Diagnoses PAD (peripheral artery disease) I73.9
== END 2023-03-03 15:28 | disposition home or self-care (01) ==
PROVIDERS: PCP Emergency Medicine; Visit Provider Surgery Vascular Surgery
DX: I73.9 Peripheral vascular disease, unspecified (principal)
CPT/HCPCS: 99213

== ENCOUNTER → 2023-03-03 14:56 | Outpatient (BNVA) | payer OTHER, SELFPAY | PROVIDERS: PCP Emergency Medicine; Visit Provider Surgery Vascular Surgery ==

== ENCOUNTER 2023-03-04 14:58 | Outpatient (AMB) | payer OTHER, SELFPAY ==
--- NOTE | 2023-03-04 15:04 | MHC.OFFVIS ---
Intake Vital Signs 03/04/23 15:09 BP 168/77 H Blood Pressure Location Rt brachial Position Sitting Pulse 84 Intake Visit Reasons: s/p BKA left leg Intake Note: This patient presents for a post-op assessment status post BKA left leg. Patient denies complaints at this time pertaining to surgery. 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 He tolerated procedure well. He currently denies significant complaints and says he feels well overall. [facility] Medical History Cirrhosis COVID-19 vaccine administered Depression Diabetes Gangrene of left foot Gangrene of toe of left foot GERD (gastroesophageal reflux disease) Hepatitis History of hyperbaric oxygen therapy HIV (human immunodeficiency virus infection) Hx of drug dependence Hyperlipidemia Hypertension Osteomyelitis Toe ulcer Surgical History Below-knee amputation of left lower extremity (~02/11/23) H/O skin graft S/P angiogram of extremity Status post debridement Family History Father Diabetes HTN (hypertension) Mother HTN (hypertension) Daughter No problems noted. Social History Household Members: Family Housing: House Are you a primary primary care provider to a significant other at home: No Do you presently have visiting nurse or other home services: Yes Alcohol intake: never Patient Tobacco Use Status: Current everyday Tobacco user Tobacco use type: Cigarette Cigarette Packs Per Day: 0 Cigarettes Per Day: 10 Years Smoked: 35 e-Cigarette/Vaping Use: Never Used Second Hand Smoke Exposure: No Substance Use Type: Former Substance User and Heroin Advance Directives Date on File: 03/13/21 service: No Current occupational status: disabled Review of Systems Const Denies chills and Denies fever(s) Card Denies chest pain at rest Resp Denies cough GI Denies abdominal pain Physical Exam Vital Signs: Last Vital Signs Pulse 84 03/04/23 15:09 BP 168/77 H 03/04/23 15:09 Const Other: On wheelchair General: comfortable and no acute distress Resp Effort & Inspection: normal respiratory effort Extrem Other: BKA left leg is well healed, navdeep intact, no evidence of any wound infection, no discharge Assessment & Plan Assessment & Plan (1) Status post below-knee amputation of left lower extremity: Code(s): Z89.512 - Acquired absence of left leg below knee Plan: I removed all his skin navdeep. The wound edges remained well apposed. He is doing quite well. I emphasized to him the port and of good blood sugar control. He can otherwise follow up on a p.r.n. basis. Coding Level of Care Code Global (17839) Diagnoses Status post below-knee amputation of left lower extremity Z89.512
[2023-03-04 15:09] VITALS: BP 168/77; PULSE 84
== END 2023-03-04 15:22 | disposition home or self-care (01) ==
PROVIDERS: PCP Emergency Medicine; Visit Provider Surgery
DX: Z89.512 Acquired absence of left leg below knee (principal)
CPT/HCPCS: 99024

== ENCOUNTER → 2023-03-04 14:58 | Outpatient (BNVA) | payer OTHER, SELFPAY | PROVIDERS: PCP Emergency Medicine; Visit Provider Surgery ==

== ENCOUNTER 2023-08-25 10:18 | Outpatient (REF) | payer OTHER, SELFPAY ==
[2023-08-25 14:53] LABS: MANUAL DIFF FLAG NO
[2023-08-25 15:03] LABS: Basophils Absolute Auto 0.1 X10*3/uL (0.0-0.2); Basophils Percent Auto 0.9 % (0-2); Eosinophils Absolute Auto 0.2 X10*3/uL (0.0-0.4); Eosinophils Percent Auto 1.7 % (0-4); Hematocrit 30.1 % (42.0-52.0); Hemoglobin 10.4 g/dl (14.0-18.0); Imm Gran Abs Auto 0.04 X10*3/uL (0.00-0.03); Imm Gran Pct Auto 0.4 % (0.0-0.4); Lymphocytes Absolute Auto 2.3 X10*3/uL (1.2-4.9); Lymphocytes Percent Auto 20.6 % (20-40); Mean Corpuscular HGB Conc 34.6 g/dl (31.0-36.0); Mean Corpuscular Hemoglobin 33.4 pg (27.0-33.0); Mean Corpuscular Volume 96.8 fL (80.0-98.0); Mean Platelet Volume 12.6 fL (9.4-12.4); Monocytes Absolute Auto 0.6 X10*3/uL (0.1-1.2); Monocytes Percent Auto 5.4 % (2-11); Neutrophils Absolute Auto 7.8 x10*3/uL (2.0-8.3); Platelet Count 126 X10*3/uL (160-400); Red Blood Count 3.11 X10*6/uL (4.60-5.80); Red Cell Distribution Width 12.4 % (11.0-16.0)
[2023-08-25 15:19] LABS: Estimated Average Glucose 189 mg/dL; Hemoglobin A1c % 8.2 % (<6.0)
[2023-08-25 15:24] LABS: Alanine Aminotransferase 27 U/L (0-40); Albumin Level 4.4 g/dL (3.5-5.0); Alkaline Phosphatase 76 U/L (39-117); Anion Gap 15 (12-20); Aspartate Amino Transferase 25 U/L (5-37); Bilirubin Total 0.4 mg/dL (0.0-1.0); Blood Urea Nitrogen 41 mg/dL (9-16); Calcium 9.6 mg/dL (8.4-10.2); Carbon Dioxide 26 mmol/L (22-29); Chloride 99 mmol/L (96-108); Cholesterol 86 mg/dL (<200); Estimated Glomerular Filt Rate 43; Glucose Random 303 mg/dL (60-115); HDL Cholesterol 25 mg/dL (>40); LDL Cholesterol Calculated 22 mg/dL (<100); Potassium 4.7 mmol/L (3.3-5.1); Sodium 135 mmol/L (135-145); Total Protein 8.1 g/dL (6.5-8.0); Triglycerides 195 mg/dL (<150)
[2023-08-25 15:27] LABS: INTERNATIONAL NORM RATIO 0.9 (0.9-1.1); Prothrombin Time 10.9 SEC (11.1-13.3)
[2023-08-25 16:03] LABS: Reflex LDLD? No
[2023-08-25 17:34] LABS: Appearance Urine Clear; Color Urine Yellow; Glucose Urine UA 250 mg/dL (Negative); Leukocyte Esterase Urine Negative (Negative); Nitrite Urine Negative (Negative); Urine Blood Negative (Negative); Urine Ketones Negative (Negative); Urine Protein Negative (Neg-Trace)
[2023-08-26 09:36] LABS: HBS Num1 7.45 mIU/mL (0-7.99); HBsAGNum1 0.32 S/CO (0.00-0.99); Hepatitis A Antibody IgM 0.59 Index (0-0.79); Hepatitis B Surface Antigen Negative (Negative); ~HepC Num1 13.35 S/CO (0.00-0.79); ~Hepatitis A Antibody IgM Nonreactive (Nonreactive); ~Hepatitis B Surface Antibody NONREACTIVE (Nonreactive); ~Hepatitis C Antibody Reactive (Nonreactive)
[2023-08-26 13:26] LABS: HBc Num2 6.69 S/CO; HBc Num3 6.57 S/CO; Hepatitis B Core Antibody Reactive (Nonreactive)
[2023-08-27 10:18] LABS: Absolute CD3 Count 1570 cells/uL (840-3060); Absolute CD4 Count 499 cells/uL (490-1740); Absolute CD8 Count 1077 cells/uL (180-1170); Absolute Lymphocytes 2070 cells/uL (850-3900); CD4 CD8 Ratio 0.46 (0.86-5.00); Percent CD3 Cells 76 % (57-85); Percent CD4 Cells 24 % (30-61); Percent CD8 Cells 52 % (12-42)
[2023-08-27 12:53] LABS: RPR Rapid Plasma Reagin NON-REACTIVE (NON-REACTIVE)
[2023-08-27 14:13] LABS: HCV Log PCR <1.18 NOT DETECTED Log IU/mL (NOT DETECTED); HepC Viral Load <15 NOT DETECTED IU/mL (NOT DETECTED)
[2023-08-27 14:44] LABS: HIV RNA PCR Qn Copies 127 copies/mL (NOT DETECTED)
[2023-08-28 07:58] LABS: Hepatitis B Core Antibody IgM NON-REACTIVE (NON-REACTIVE)
[2023-08-28 08:53] LABS: TS Negative Control Passed; TS Panel A 0; TS Panel B 0; TS Positive Control Passed; TSpotTB Negative (Negative)
== END 2023-08-25 10:19 | disposition home or self-care (01) ==
LOC: HO.CHCLDS 10:18
PROVIDERS: Referring Provider Internal Medicine; Visit Provider Registered Nurse
DX: B20 Human immunodeficiency virus [HIV] disease (principal); D69.6 Thrombocytopenia, unspecified; E11.9 Type 2 diabetes mellitus without complications; R76.8 Other specified abnormal immunological findings in serum; Z79.4 Long term (current) use of insulin
CPT/HCPCS: 36415; 80053; 80061; 81003; 83036; 85025; 85610; 85730; 86359; 86360; 86481; 86592; 86704; 86705; 86706; 86709; 86803; 87340; 87522; 87536

== ENCOUNTER 2024-01-01 11:32 | Outpatient (REF) | payer OTHER, SELFPAY ==
[2024-01-04 13:59] LABS: HIV RNA PCR Qn Copies <20 DETECTED copies/mL (NOT DETECTED); HIV RNA PCR Qn Log Copies <1.30 DETECTED (NOT DETECTED)
== END 2024-01-01 11:33 | disposition home or self-care (01) ==
LOC: HO.CHCLDS 11:32
PROVIDERS: Visit Provider Internal Medicine
DX: B20 Human immunodeficiency virus [HIV] disease (principal)
CPT/HCPCS: 36415; 87536

== ENCOUNTER 2024-06-22 14:32 | Outpatient (REF) | payer OTHER, SELFPAY ==
--- NOTE | ~2024-06-22 | US_ITS ---
EXAMINATION: NONINVASIVE ASSESSMENT OF THE ARTERIES OF THE RIGHT LOWER EXTREMITY CLINICAL INFORMATION: Peripheral vascular disease COMPARISON: Multiple priors as recently as 02/04/2023 TECHNIQUE: duplex Doppler techniques with wave form analysis and measurement of velocities in the right common femoral, profunda femoral, superficial femoral, popliteal, tibial and peroneal arteries. The study was performed only at rest. FINDINGS: RIGHT LEG Common femoral artery: 217 cm/s, Multiphasic Profunda femoris artery: 89 cm/s, Multiphasic Superficial femoral artery (proximal): 108 cm/s, Multiphasic Superficial femoral artery (mid): 111 cm/s, Multiphasic Superficial femoral artery (distal): 128 cm/s, Multiphasic Proximal Popliteal artery: 85 cm/s, Multiphasic Mid posterior tibial artery: 60 cm/s, Multiphasic There is atherosclerotic disease throughout the lower extremity. US/US arterial duplex LE RT IMPRESSION: No hemodynamically significant stenosis in the right lower extremity. Electronically signed by: Madeleine Hernandez MD 09/02/2024 01:25 PM KYLE
== END 2024-06-22 14:33 | disposition home or self-care (01) ==
LOC: HO.US 14:32
PROVIDERS: PCP Registered Nurse; Visit Provider Surgery Vascular Surgery
DX: I73.9 Peripheral vascular disease, unspecified (principal)
CPT/HCPCS: 93926

== ENCOUNTER 2024-08-30 13:52 | Outpatient (REF) | payer OTHER, SELFPAY ==
--- OUTSIDE RECORDS SUMMARY | 2024-08-30 14:45 | XMS_ITS | Clinical Summary ---
Author Organization [facility] Address [address] [place] [address] Phone Care Team Providers Care Motorboat Mechanic Inboard/Outboard Name Role Phone Ivon Madera Primary Care Provider [phone] Allergies Active Allergy Reactions Criticality Noted Date Comments Trazodone Other (see comments) 09/22/2019 Medications amLODIPine (NORVASC) 5 MG tablet Take 10 mg by mouth 1 (one) time each day Active aspirin (ST MARILEE) 81 MG EC tablet Take 81 mg by mouth 1 (one) time each day Active hydroCHLOROthia zide (HYDRODIURIL) 25 MG tablet Take 25 mg by mouth 1 (one) time each day Active insulin glargine (LANTUS) 100 UNIT/ML injection Inject 80 Units under the skin every night Active lisinopril 5 MG tablet Take 5 mg by mouth 1 (one) time each day Active metoprolol succinate XL (TOPROL-XL) 100 MG 24 hr tablet Take 100 mg by mouth 1 (one) time each day Active insulin aspart protamine-insul in aspart (NovoLOG 70/30) (70-30) 100 UNIT/ML injection Inject 90 Units under the skin 2 (two) times a day before meals Active QUEtiapine (SEROquel) 100 MG tablet Take 100 mg by mouth every night Active Dulaglutide 1.5 MG/0.5ML solution pen-injector Inject 1.5 mg under the skin per week Active cholecalciferol (VITAMIN D-3) 50 MCG (2000 UT) tablet Take 2,000 Units by mouth 1 (one) time each day 2 Active furosemide (LASIX) 20 MG tablet Take 20 mg by mouth 1 (one) time each day if needed Active METHADONE HCL PO Take 38 mg by mouth 1 (one) time each day Active Ventolin HFA 108 (90 Base) MCG/ACT inhaler Inhale 1 puff every 4 (four) hours if needed for wheezing or shortness of breath Active Biktarvy 50-200-25 MG tablet Take 1 tablet by mouth 1 (one) time each day 4 Active Tresiba FlexTouch 100 UNIT/ML injection Inject 60 Units under the skin every night Active nicotine (NICODERM CQ) 14 MG/24HR Place 1 patch on the skin 1 (one) time each day at the same time Active rosuvastatin (CRESTOR) 20 MG tablet Take 20 mg by mouth at bed time at bedtime 4 Active Active Problems Problem Noted Date Diagnosed Date Amputee 06/05/2022 Hepatitis C antibody detected 06/05/2022 Hyperkalemia 11/29/2019 Stage 3b chronic kidney disease 11/29/2019 Diabetic glomerulonephritis 11/29/2019 HIV positive 11/29/2019 Skin ulcer due to diabetes mellitus 11/29/2019 Diabetes mellitus, not otherwise specified Hypertension Albuminuria Resolved Problems Problem Noted Date Diagnosed Date Resolved Date Chronic kidney disease, stage 2 (mild) 09/22/2019 11/29/2019 Dyslipidemia 11/28/2019 Encounters Date Type Department Care Team Description 05/31/2024 10:40 AM EDT Office Visit [facility] [address] [phone] Oren Saba MD Stage 3b chronic kidney disease (HCC) (Primary Dx); Hypertension; Hyperkalemia; HIV positive (HCC); Hepatitis C antibody detected; Diabetic glomerulonephritis (HCC); Diabetes mellitus, not otherwise specified (HCC); Amputee 05/31/2024 Office Communication [facility] [address] [phone] Oren Saba MD from Last 3 Months Immunizations Name Administration Dates Next Due Hepatitis A 11/19/2000,04/23/2000 Hepatitis B 09/14/1997,08/11/1997 Td 06/21/2004 Tdap 06/01/2012 Social History Tobacco Use Types Packs/Day Years Used Date Smoking Tobacco: Some Days Cigarettes Sex and Gender Information Value Date Recorded Sex Assigned at Not on file Legal Sex Male 2:39 PM EDT Gender Identity Not on file Sexual Orientation Not on file Last Filed Vital Signs Vital Sign Reading Time Taken Comments Blood Pressure 131/64 05/31/2024 10:54 AM EDT Pulse 86 05/31/2024 10:54 AM EDT Temperature - - Respiratory Rate - - Oxygen Saturation 98% 05/31/2024 10:54 AM EDT Inhaled Oxygen Concentration - - Weight 99.8 kg (220 lb) 05/31/2024 10:54 AM EDT Height 167.6 cm (5' 6 ) 05/31/2024 10:54 AM EDT Body Mass Index 35.51 05/31/2024 10:54 AM EDT Plan of Treatment Upcoming Encounters Date Type Department Care Team (Late st Contact Info) Description 05/31/2025 11:20 AM EDT Office Visit [facility] [address] [phone] Oren Saba MD [address] [phone] Health Maintenance Due Date Last Done Comments Hepatitis B Vaccine (1 of 3 - 19+ 3-dose series) 1984 12/18/2017, 11/20/2017, 01/17/1998, Additional history exists Colorectal Cancer Screening: Annual FOBT 2014 Colorectal Cancer Screening: Colonoscopy 2014 Colorectal Cancer Screening: Sigmoidoscopy 2014 Diabetes: Ophthalmology Exam 05/01/2022 Diabetes: Pedal Pulse Checked 05/01/2022 Diabetes: Sensory Foot Exam 05/01/2022 Diabetes: Visual Foot Exam 05/01/2022 Diabetes: Hemoglobin A1C 08/09/2024 05/09/2024, 11/01 Influenza Vaccine Completed 05/09/2024, , 08/15/2020, Additional history exists Pneumococcal Vaccine: Pediat rics (0 to 5 Years) and At-Risk Patients (6 to 64 Years) Completed 05/12/2024, 02/15/2018, 08/28/2014, Additional history exists Procedures Procedure Name Priority Date/Time Associated Diagnosis Comments LAB [facility] Routine 11/12/2017 12:00 AM EDT from Last 3 Months or Most Recently Relevant to Health Maintenance Results * [facility] (11/12/2017 12:00 AM EDT) Carbon Dioxide (CO2) 26 22 - 29 mmol/L [facility] BUN 20 8 - 23 mg/dL [facility] Calcium 8.9 8.4 - 10.2 mg/dL [facility] AST (SGOT) 21 U/L [facility] Glucose 207 mg/dl [facility] Albumin 4.1 gm/dl [facility] Hemoglobin A1C 9.5 % [facility] Sodium 140 133 - 145 mmol/L [facility] ALT (SGPT) 26 U/L [facility] Potassium 4.2 3.6 - 5.2 mmol/L [facility] Creatinine 0.91 0.4 - 1.1 mg/dL [facility] GFR Calculated >60 ml/min [facility] 11/12/2017 us [facility] Conversion LAB [id number] LICITED RESULTS Final Result [facility] from Last 3 Months or Most Recently Relevant to Health Maintenance Insurance DUAL SNP ([id number]) [place] [id number] REPLACED BY [facility] DUAL SNP ([id number]) Care Teams Motorboat Mechanic Inboard/Outboard Relationship Specialty Start Date End Date Ivon Madera FNP [address] [place] [phone] PCP - General 03/11/22
--- OUTSIDE RECORDS SUMMARY | 2024-08-30 14:45 | XMS_ITS ---
Author Organization [facility] Address [address] [place] [address] Care Team Providers Care Bag End Sewer Name Role Phone Ivon Madera Primary Care Provider Aki Millan Unavailable [phone] Encounters Encounter Location Date Provider [facility] [address] [address] 10/29/2023 Aki Khalil Plan Of Treatment No Information Progress Notes * Bettie MUNOZOB:1965 ([age] yo M)Acc No.[id number]:10/29/2023 Progress Notes Patient:?Santhosh MUNOZ Provider:?Aki Khalil DPM :1965???Age:58 Y???Sex:Male Mark e:10/29/2023 Address:[address] [place], [place] [id number] Pcp:Ivon Madera Subjective: * Chief Complaints: * ??? * Medical History:? Objective: * Vitals:? Assessment: Plan: * Treatment: * Images: * The named appointment provid er may or may not be the originator of this progress note, and it is not deemed complete until electronically signed by the appointment provider. Sign off status: Pending * Provider:?Aki Khalil DPM Date:?2023 Generated for Rupesh victor/Sera/eTarceliasmitting on:?08/30/2024 09:06 AM EST
--- OUTSIDE RECORDS SUMMARY | 2024-08-30 14:45 | XMS_ITS | Data Portability ---
Author Organization [facility], Main Office Address [address] [facility] [address] [place] [address] Care Team Providers Care Cloth Weigher Name Role Phone [facility] OTHER Assessment Encounter Date Assessment Date Assessment LastModified by Organization Details LastModified Time 01/10/2020 01/10/202012/23 bun 18, creat 0.8 Not available 01/10/2020 10:10:54 01/19/2020 01/19/202012/23 bun 18, creat 0.8 [email or web address] Not available 01/19/2020 14:36:36 01/25/2020 01/25/202012/23 bun 18, creat 0.8 01/24 wbc 6.06, hgb 8.8, hct 27.0, bun 19, creat 0.9, CRP 13.3 Not available 01/25/2020 11:26:57 01/31/2020 01/31/202012/23 bun 18, creat 0.8 01/24 wbc 6.06, hgb 8.8, hct 27.0, bun 19, creat 0.9, CRP 13.3 Not available 01/31/2020 12:27:14 Plan of Treatment Reminders Order Date Submit Date Provider Last Modified By Organization Details Last Modified Time Details Appointments None record ed. Lab None record ed. Referral None record ed. Procedures None record ed. Surgeries None record ed. Imaging None record ed. Medication Orders None record ed. Patient TargetsNo targets recorded. Patient Instructions Encounter Date Encounter Id Patient Instructions Last Modified By Organization Details Last Modified Time 01/02/2020 [id number] type 2 diabetes: care instructions [email or web address] Not available 01/02/2020 14:33:29 Reason for Referral None Reported. Problems Name Problem SNOMED Code Status Onset Date Resolution Date Notes Provider Name and Address Organization Details Recorded Time Sepsis 61319464 Active [address], [address], [place], [address], [facility] 0 09:05:28 Long-term drug therapy Active [address], [address], [place], [address], [facility] 0 09:13:26 Uncontrolle d type 2 diabetes mellitus 967628801 Active [address], [address], [place], [address], [facility] 0 09:13:27 Human immunodefic iency virus infection 87615360 Active [address], [address], [place], [address], [facility] 0 09:13:28 Essential hypertensio n 38903580 Active [address], [address], [place], [address], [facility] 0 09:13:30 Acute injury of kidney 9393218143581 4108 Active [address], [facility] [address], [place], [address], [facility] 0 09:13:31 Osteomyelit is of ankle AND/OR foot 97738333 Active [address], [address], [place], [address], [facility] 0 09:13:34 Tobacco user 995400580 Active [address], [facility] [address], [place], [address], [employer] [facility] 0 09:26:37 Problem Notes None recorded. Medical Equipment None Reported. Allergies Allergen ID Allergen Name Allergen Category Reaction Reaction Severity Criticality Documentation Date Start Date Code Code System Note Provider Name and Address Organization Details Recorded Time [id number] trazodone medicatio n Not available Not available Not available 12/24/2019 86410 RxNorm Not Available Not Available Not Available Medications Not known to be on any medication Vitals Date Recorded Body temperature Oxygen saturation Oxygen saturation in Arterial blood by Pulse oximetry Systolic blood pressure Diastolic blood pressure Provider Name and Address Organization Details Last Updated DateTime 0 97.2 [degF] 97 % 97 % 127 mm[Hg] 62 mm[Hg] [facility] 0 10:03:05 Date Recorded Heart rate Respiratory rate Body temperature Oxygen saturation Oxygen saturation in Arterial blood by Pulse oximetry Systolic blood pressure Diastolic blood pressure Provider Name and Address Organization Details Last Updated DateTime 0 76 /min 20 /min 97 [degF] 98 % 98 % 146 mm[Hg] 60 mm[Hg] MALGORZATA Titus [address] [facility], [facility] [address], [place], [address], [facility] 0 14:33:59 Date Recorded Body temperature Systolic blood pressure Diastolic blood pressure Provider Name and Address Organization Details Last Updated DateTime 01/25/2020 97.7 [degF] 130 mm[Hg] 74 mm[Hg] [facility] 01/25/2020 11:22:12 Date Recorded Systolic blood pressure Diastolic blood pressure Provider Name and Address Organization Details Last Updated DateTime 01/02/2020 136 mm[Hg] 80 mm[Hg] Isidro Marcos MD [address] [facility], [facility] [address], [place], [address], [facility] 01/02/2020 14:09:39 Date Recorded Systolic blood pressure Diastolic blood pressure Provider Name and Address Organization Details Last Updated DateTime 01/31/2020 145 mm[Hg] 74 mm[Hg] [facility] 01/31/2020 12:25:49 Social History Question Answer Notes LastModified by Organizat ion Details LastModified Time Tobacco Smoking Status Current Every Day Smoker Not Available [employer] 05/29/2020 03:13:20 Do You Or Have You Ever Used E-cigarettes Or Vape? Never Used Electronic Cigarettes [id number] Information not available 05/29/2020 Do You Or Have You Ever Used Smokeless Tobacco? Never Used Smokeless Tobacco [id number] Information not available 05/29/2020 How Much Tobacco Do You Smoke? 0.25 PPD [id number] Information not available 05/29/2020 How Many Years Have You Smoked Tobacco? 35 [id number] Information not available 05/29/2020 Sex: Unknown Functional Status None recorded. Mental Status None recorded. Family History Nothing Reported Notes:n/a Medical History No medical history recorded. Past Encounters Encounter ID Performer Location Encounter Start Date Encounter Closed Date Diagnosis/Indication Diagnosis SNOMED-CT Code Diagnosis ICD10 Code Diagnosis Note [id number] Anushka Barbara [facility] on [address] [place] [address] 12/24/2019 08:55:50 12/30/2019 12:01:54 Osteomyelitis of ankle AND/OR foot 55470530 M86.9 see HPIleft heel. now on ertapenem per wound culture, 1 gm qd until 01/30/20fol lowed by wound carefollow wound care rec's.plav ix 75 mg qdAPAP prn for painWBAT with cane or walkerPT OT to maximize function.m onitor PICC site, wound. Acute inju ry of kidney 0059324067 4448168 N17.9 see HPI? secondary to sepsis, osteoresol mic in acute care with IVF.monito r labs. Sepsis 56318689 A41.9 see HPIplan as above.key tor labs, general status Essential hypertension 47285787 I10 BP low upon presenting to acute careBP rebounded and home regimen continued. SBP currently aboe MIPS goalmetopr olol 100 mg qdamlodipi ne 10 mg qdASAlasix 20 mg qdmonitor, titrate regimen prn Human immunodeficiency virus infection 05839124 B20 CD$ count 1-2. discussed with I&D about need for prophylaxi s abx. not recommende d at this time. monitor. Uncontroll ed type 2 diabetes mellitus 000232759 E11.65 FBS in acute care 3-400 range with continual adjustment to LA and SSI.now on lantus 30 units bid and humalog 8 u sched plus SSImetform in 1000 mg qdand trulicity weeklymoni tor. titrate regimen prn Long-term drug therapy 318202983 Z79.899 active opioid user, last used approx 7 days agomethado ne 55 mg po qdseroquel 100mg qd monitor Tobacco user 668503774 Z 72.0 approx 3/4 cigs qd. no urge to smoke currently, declines offer for replacemen t patch. monitor [id number] Isidro Marcos MD [facility] on [address] [place] [address] 01/02/2020 14:09:13 01/05/2020 08:33:07 Osteomyelitis of ankle AND/OR foot 57814246 M86.072 left heel ulcerfollo wed by wound clinic priorconti nue Abcontinue wound caremonito r site Acute inju ry of kidney 2728047572 9662604 N17.8 presented in ARF with cre>2.0imp roved with IVFmonitor renal functionav oid nephrotoxi c meds as ablenephro consult prn Sepsis 36726455 A41.89 see HPIfollowe d by ID now to complete ertapenem IV coursestop date to be determined by ID add probioticm onitor cbc Human immunodeficiency virus infection 27575742 B20 continue current medication supdate ID with concerns in conditionm onitor cbc Anemia 454168239 D50.8 chronic anemiacont inue iron 325 mg qdmonitor cbc Uncontroll ed type 2 diabetes mellitus 652048336 E11.65 uncontroll ed DMnow onmetformi n 1000 mg bidlispro sstrulicit y 1.5 mg qdmonitor blood glucose and need to adjust med Essential hypertension 24691087 I10 lasix 20 mg qdmetoprol ol 100 mg qdnorvasc 10 mg qdmonitor bptitrate prn [id number] Maggi Urena [facility] on [address] [place] [address] 01/10/2020 09:39:18 01/12/2020 10:58:58 Sepsis 37483598 A41.89 see HPIfollowe d by ID now to complete ertapenem IV courseHas f/u with ID 01/12 Osteomyeli tis of ankle AND/OR foot 30554658 M86.072 left heel ulcercont wound care as ordered F/u with vascular and wound clinicMoni tor Acute inju ry of kidney 8095846678 8183123 N17.8 presented in ARF with cre>2.0imp roved with IVFmonitor renal functionav oid nephrotoxi c meds as ablenephro consult prn Anemia 464601664 D50.8 chronic anemiacont inue iron 325 mg qdmonitor cbc Uncontroll ed type 2 diabetes mellitus 280469375 E11.65 Blood sugars consistent ly <100D/c lispro insulinCon tmetformin ER 1000 mg dailytruli city 1.5 mg qdlantus 30 units bidmonitor blood glucose and need to adjust med Essential hypertension 39766103 I10 lasix 20 mg qdmetoprol ol 100 mg qdnorvasc 10 mg qdmonitor bp [id number] MALGORZATA Titus [facility] on [address] [place] [address] 01/19/2020 14:32:57 01/23/2020 16:40:49 Sepsis 52322455 A41.89 continue ertapenem IV course till 01/29f/u with ID Osteomyeli tis of ankle AND/OR foot 64983812 M86.072 cont wound care to left heel as ordered F/u with vascular and wound clinic Acute inju ry of kidney 3168538684 1204497 N17.8 creat normal at 1.0 on 01/10 monitor renal functionav oid nephrotoxi c meds as ablenephro consult prn Anemia 809733705 D50.8 continue iron 325 mg qdmonitor cbc Uncontroll ed type 2 diabetes mellitus 805097284 E11.65 metformin ER 1000 mg daily trulicity 1.5 mg qdlantus 30 units bidmonitor blood glucose, adjust med prn Essential hypertension 78320533 I10 lasix 20 mg qdmetoprol ol xl 100 mg qdnorvasc 10 mg qdmonitor bp [id number] Maggi Urena [facility] on [address] [place] [address] 01/25/2020 11:20:33 01/30/2020 14:43:12 Sepsis 90333061 A41.89 see HPIfollrenoe d by ID now to complete ertapenem IV course (end date 01/29)probi oticHas f/u with ID 01/26Follow labs weekly Osteomyeli tis of ankle AND/OR foot 72806997 M86.072 left heel ulcercont wound care as ordered F/u with vascular and wound clinicMoni tor Acute inju ry of kidney 6673639253 1608018 N17.8 presented in ARF with cre>2.0now appears resolved Anemia 440258246 D50.8 chronic anemiacont inue iron 325 mg qdmonitor cbc Uncontroll ed type 2 diabetes mellitus 857056241 E11.65 Blood sugars consistent ly <100metfor min ER 1000 mg dailytruli city 1.5 mg qddecrease lantus 20 units bidmonitor blood glucose and need to adjust med Essential hypertension 11379498 I10 lasix 20 mg qdmetoprol ol 100 mg qdnorvasc 10 mg qdmonitor bp [id number] Maggi Urena [facility] on [address] [place] [address] 01/31/2020 12:23:07 02/02/2020 16:26:19 Sepsis 40823548 A41.89 see Eric tejada by Betito now completed course ertapenemp robiotic seen by ID 01/26-infec tion felt to be adequately treated, no further antibiotic therapy needed at this time Osteomyeli tis of ankle AND/OR foot 16563611 M86.072 left heel ulcerF/u with vascular and wound clinicVNA services in place to continue daily wound care Acute inju ry of kidney 5999770439 9803572 N17.8 presented in ARF with cre>2.0now appears resolved Anemia 619411384 D50.8 chronic anemiacont inue iron 325 mg qdCBC appears stable Uncontroll ed type 2 diabetes mellitus 456574656 E11.65 Blood sugars consistent ly <100metfor min ER 1000 mg dailytruli city 1.5 mg qddecrease lantus 15 units bidf/u with PCP Essential hypertension 60869690 I10 lasix 20 mg qdmetoprol ol 100 mg qdnorvasc 10 mg qdBP stablef/u with PCP Health Concerns Section Related Observation LastModified by Organization Detai ls LastModified Time None Recorded Concern Status LastModified by Organization Details LastModified Time None Recorded Advance Directives Directive None Recorded Payers Encounter Date Sequence Insurance Name Policy Number Policy Meadows Covered Member ID Meadows Member ID Guarantor Name 01/02/2020 1 [facility] - DOS PRIOR TO 2022 - DUAL ELIGIBLE (MEDICARE REPLACEMENT/ADV ANTAGE - HMO) Santhosh Montanez [id number] Santhosh Lisseth 01/10/2020 1 [employer] [facility] PRIOR TO 2022 - DUAL ELIGIBLE (MEDICARE REPLACEMENT/ADV ANTAGE - HMO) Santhosh Lisseth [id number] Santhosh Lisseth 01/19/2020 1 [facility] - DOS PRIOR TO 2022 - DUAL ELIGIBLE (MEDICARE REPLACEMENT/ADV ANTAGE - HMO) Santhosh Lisseth [id number] Santhosh Lisseth 01/25/2020 1 [employer] [facility] DOS PRIOR TO 2022 - DUAL ELIGIBLE (MEDICARE REPLACEMENT/ADV ANTAGE - HMO) Santhosh Lisseth [id number] Santhosh Lisseth 01/31/2020 1 [employer] [facility] PRIOR TO 2022 - DUAL ELIGIBLE (MEDICARE REPLACEMENT/ADV ANTAGE - HMO) Santhosh Lisseth [id number] Santhosh Lisseth Notes Date Note Type Note Provider Name and Address Organization Details Recorded Time 01/02/2020 text/html Patient is a 54 yo male admit from hospital sent from wound clinic for abnormal MRI. Imaging concerning for osteomyelitis. On presentation wyiq=468 degrees with wbc=20. Found to be in ARF with cre=2.09. Followed by ID and vascular surgery now to complete course of ertapenem PMH significant forHIV positivehtndm uncontrolledanemia admit to facility for continued care and therapy Isidro Marcos MD [address] [place] [address], [address], [place], [address], [facility] 01/02/2020 14:33:33 01/10/2020 text/html 54 yo male seen for acute rounding. Patient admitted for rehab and to complete course IV antibiotics for osteomyelitis of left heel. Patient doing well since admission. No complaints today. Maggi mosher, [facility] 01/10/2020 13:39:59 01/19/2020 text/html pt seen today fo r acute rounding visit. Pt admitted for rehab and to complete course IV antibiotics for osteomyelitis of left heel. pt now able to walk with walker. no diarrhea noted. bp is mildly elevated today. blood glucose checks normal on lantus and metformin. no concerns per nursing. MALGORZATA Titus [address] [facility], [address], [place], [address], [facility] 01/19/2020 14:39:41 01/25/2020 text/html 54 yo male seen for 30 day routine rounding. Patient admitted to complete course of IV antibiotics for osteomyelitis of left heel. Wound appears to be healing well. Patient ambulating with walker. Denies complaints today. Maggi mosher [facility] 01/25/2020 11:43:17 01/31/2020 text/html 54 yo male seen in preparation for discharge home today. Patient admitted for rehab and to complete IV antibiotic course for osteomyelitis of left heel. Has now completed antibiotic course with infection felt to be resolved per ID. VNA services in place to continue wound care at home. Able to ambulate independently with walker. Maggi mosher [facility] 01/31/2020 13:46:51
--- OUTSIDE RECORDS SUMMARY | 2024-08-30 14:45 | XMS_ITS | Patient Health Record ---
Author Organization [facility] Irma bowser [place] Address [address] [place] [address] Care Team Providers Care Electronics Mechanic Apprentice Name Role Phone Ivon Madera Primary Care Provider Aki Millan Unavailable [phone] Reason For Referral No Information Plan Of Treatment No Information Insurance Providers Payer Name Payer Address Payer Phone Subscriber Number Group Number Insured Name Patient Relationship to Insured Coverage Start Date Coverage End Date [facility] [employer] Claims [address] [place] [id number] Santhosh Montanez Self - patient is the insured
--- OUTSIDE RECORDS SUMMARY | 2024-08-30 14:45 | XMS_ITS | Data Portability ---
Author Organization [employer] Address [address] [place] [id number] Care Team Providers Care Cement Side Laster Name Role Phone [facility] Referring Provider [phone] Assessment Encounter Date Assessment Date Assessment LastModified by Organization Details LastModified Time 01/06/2023 01/06/2023 I have reviewed and agree with the assessment and plan as documented by the sr. operations manager. I provided real-time medical direction for this encounter and was immediately available to provide additional phone-based assistance as needed. 57M with DM presents with foot ulcer and surrounding erythema, concern for cellulitis. No fever, no systemic illness. Vitals normal. No allergies to antibiotics. Will initiate Keflex. Red flags and return precautions discussed. paysola Not available 01/06/2023 13:26:14 Plan of Treatment Reminders Order Date Submit Date Provider Last Modified By Organization Details Last Modified Time Details Appointments None recorded. Lab None recorded. Referral None recorded. Procedures None recorded. Surgeries None recorded. Imaging None recorded. Medication Orders cephalexin 500 mg capsule 2022 023 [facility], [address] [place] [address], [id number], 13:31:23 Patient TargetsNo targets recorded. Patient InstructionsNo instructions recorded. Reason for Referral None Reported. Medical Equipment None Reported. Medications Name Sig Start Date Stop Date Status Note LastModified by Organization Details LastModified Time amoxicillin 500 mg capsule TAKE 1 CAPSULE BY MOUTH EVERY 8 HOURS UNTIL FINISHED active Not Available Not Available No t Available metformin 500 mg tablet TAKE 2 TABLETS BY MOUTH TWICE DAILY IN THE MORNING AND IN THE EVENING WITH MEALS active Not Available Not Available N ot Available metoprolol succinate ER 100 mg tablet,exten ded release 24 hr TAKE 1 TABLET BY MOUTH EVERY DAY active Not Available Not Available No t Available clopidogrel 75 mg tablet TAKE 1 TABLET BY MOUTH EVERY DAY active Not Available Not Available No t Available amlodipine 5 mg tablet TAKE 1 TABLET BY MOUTH EVERY DAY active Not Available Not Available No t Available quetiapine 100 mg tablet TAKE 1 TABLET BY MOUTH AT BEDTIME active Not Available Not Available No t Available acetaminophe n 500 mg tablet TAKE 1 TABLET BY MOUTH EVERY 6 HOURS NEEDED active Not Available Not Available No t Available cephalexin 500 mg capsule TAKE 1 CAPSULE BY MOUTH EVERY 6 HOURS FOR 7 DAYS active Not Available Not Available No t Available nicotine 21 mg/24 hr daily transdermal patch APPLY 1 PATCH TOPICALLY TO THE SKIN DAILY IN THE MORNING THEN REMOVE AT BEDTIME DIRECTED. DO NOT SMOKE WHILE USING PATCH active Not Available Not Available Not Available lisinopril 5 mg tablet TAKE 1 TABLET BY MOUTH EVERY DAY active Not Available Not Available No t Available hydrochlorot hiazide 25 mg tablet TAKE 1 TABLET BY MOUTH EVERY MORNING active Not Available Not Available No t Available clotrimazole 1 % topical cream APPLY TO THE AFFECTED AREA(S) AND SURROUNDING AREA(S) OF SKIN OF THE RIGHT EAR TWICE DAILY IN THE MORNING AND IN THE EVENING FOR 2 WEEKS active Not Available Not Available No t Available Ventolin HFA 90 mcg/actuatio n aerosol inhaler INHALE 2 PUFFS BY MOUTH EVERY 4 HOURS NEEDED active Not Available Not Available No t Available Novolog FlexPen U-100 Insulin aspart 100 unit/mL (3 mL) subcutaneous INJECT 20 UNITS SUBCUTANEOU SLY WITH MEALS DIRECTED active Not Available Not Available No t Available rosuvastatin 20 mg tablet TAKE 1 TABLET BY MOUTH AT BEDTIME active Not Available Not Available No t Available Alcohol Prep Pads USE BEFORE TESTING BLOOD SUGAR DIRECTED active Not Available Not Available Not Available FreeStyle Lite Strips USE TO TEST BLOOD SUGAR 5 TIMES DAILY active Not Available Not Available No t Available cholecalcife rol (vitamin D3) 50 mcg (2,000 unit) tablet TAKE 1 TABLET BY MOUTH EVERY DAY active Not Available Not Available No t Available TRUEplus Lancets 33 gauge TEST BLOOD SUGAR 5 TIMES DAILY active Not Available Not Available Not Available Trulicity 1.5 mg/0.5 mL subcutaneous pen injector INJECT ONE PEN (=0.75MG) SUBCUTANEOU SLY ONCE A WEEK DIRECTED active Not Available Not Available No t Available Pentips Pen Needle 32 gauge x 5/32 USE WITH INSULIN pens active Not Available Not Available No t Available Tresiba FlexTouch U-100 insulin 100 unit/mL (3 mL) subcutaneous pen INJECT 60 UNITS SUBCUTANEOU SLY EVERY EVENING active Not Available Not Available No t Available Odefsey 200 mg-25 mg-25 mg tablet TAKE 1 TABLET BY MOUTH EVERY DAY active Not Available Not Available No t Available Vitals Date Recorded Body weight Oxygen saturation Oxygen saturation in Arterial blood by Pulse oximetry Respiratory rate Heart rate Body temperature Systolic blood pressure Diastolic blood pressure Provider Name and Address Organization Details Last Updated DateTime 3 38684.5 6 g 100 % 100 % 16 /min 85 /min 97.5 [degF] 159 mm[Hg] 71 mm[Hg] Not Available [employer] - production 3 13:23:23 Social History None recorded. Functional Status None recorded. Mental Status None recorded. Family History Nothing Reported. Medical History No medical history recorded. Past Encounters Encounter ID Performer Location Encounter Start Date Encounter Closed Date Diagnosis/Indication Diagnosis SNOMED-CT Code Diagnosis ICD10 Code Diagnosis Note [id number] Kelley Bowie MD Main - [address] [address] 01/06/2023 13:23:09 01/06/2023 16:14:15 Cellulitis 954892094 L03.90 Health Concerns Section Related Observation LastModified by Organization Detai ls LastModified Time None Recorded Concern Status LastModified by Organization Details LastModified Time None Recorded Advance Directives Directive None Recorded Payers Encounter Date Sequence Insurance Name Policy Number Policy Meadows Covered Member ID Meadows Member ID Guarantor Name 01/06/2023 1 [facility] - DOS ON OR AFTER 2022 - DUAL ELIGIBLE - DETENTION OPTIONS AND ONE CARE (MEDICARE REPLACEMENT/ADV ANTAGE - HMO) Santhosh Lisseth [id number] Santhosh Bearden Lisseth Notes Date Note Type Note Provider Name and Address Organization Details Recorded Time 01/06/2023 text/html HPI: Santhosh's Sister/health care proxy/primary contact called reporting that they have both been trying to get in contact with PCP to get member's foot checked. Sister reported Santhosh has been bleeding from a sore on his left foot which started last week. Zoila reported that at first it wasn't a lot but at this moment is quite a bit. Sister reported that the foot bothers him but he doens? t have constant pain. When asked about possible infection Zoila reported he has a scab and around the scab is red. Santhosh has a history of Diabetic foot ulcers on that foot which have gotten infected in the past. Sister reports member does not want to go to the ED. .................. .................. .................. .................. .................. .................. .................. ............... [facility] Nursing Assessment: Comments: Review request no further information needed to process visit Kelley Bowie MD [address] [facility],[address], [place], [address], [place] 01/06/2023 13:27:04
[2024-08-30 18:02] LABS: Creatinine Urine 47.92 mg/dL; Microalbum/Creatinine Ratio Ur 93.9 ug/mg cr (<30)
[2024-08-30 18:17] LABS: Alanine Aminotransferase 26 U/L (0-40); Albumin Level 4.2 g/dL (3.5-5.0); Alkaline Phosphatase 83 U/L (39-117); Anion Gap 12 (12-20); Aspartate Amino Transferase 22 U/L (5-37); Bilirubin Total 0.4 mg/dL (0.0-1.0); Blood Urea Nitrogen 30 mg/dL (9-16); Calcium 9.3 mg/dL (8.4-10.2); Carbon Dioxide 27 mmol/L (22-29); Chloride 102 mmol/L (96-108); Cholesterol 98 mg/dL (<200); Estimated Glomerular Filt Rate 43; HDL Cholesterol 29 mg/dL (>40); LDL Cholesterol Calculated 8 mg/dL (<100); Potassium 4.7 mmol/L (3.3-5.1); Sodium 136 mmol/L (135-145); Total Protein 8.2 g/dL (6.5-8.0); Triglycerides 307 mg/dL (<150)
[2024-08-30 19:02] LABS: Glucose Random 402 mg/dL (60-115)
== END 2024-08-30 13:53 | disposition home or self-care (01) ==
LOC: HO.CHCLDS 13:52
PROVIDERS: Visit Provider Internal Medicine
DX: E11.9 Type 2 diabetes mellitus without complications (principal); Z79.4 Long term (current) use of insulin
CPT/HCPCS: 36415; 80053; 80061; 82043; 82570

== ENCOUNTER 2024-09-29 11:03 | Outpatient (AMB) | payer OTHER, SELFPAY ==
--- NOTE | 2024-09-29 11:03 | A.OFFVIS_ITS ---
Intake Visit Reasons: overdue follow up s/p LE Arterial 06/22/24 Intake Note: Patient presents for follow up arterial performed on 06/22/24. Patient states his right foot has some redness but is not sure what it is. Accompanied by: Self / Same As Patient Allergies trazodone [TRAZODONE] Allergy (Unknown, Verified 09/29/24 11:06) UNKNOWN HPI HPI overdue follow up s/p LE Arterial 06/22/24: Details: Santhosh is presenting today for a follow up to RLE arterial duplex, performed on 06/22/24. 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 He states he is feeling well. He has no new vascular concerns but states he started with a rash on the top of his right foot appx 2w ago. It is not itchy nor painful. He states he has bumped his foot before, but cannot say exactly when. [facility] Medical History Gangrene of toe of left foot Gangrene of left foot Toe ulcer Hx of drug dependence GERD (gastroesophageal reflux disease) Hepatitis Cirrhosis Depression COVID-19 vaccine administered History of hyperbaric oxygen therapy Hyperlipidemia Hypertension Diabetes HIV (human immunodeficiency virus infection) Osteomyelitis Surgical History Below-knee amputation of left lower extremity (~02/11/23) H/O skin graft Status post debridement S/P angiogram of extremity Family History Father Diabetes HTN (hypertension) Mother HTN (hypertension) Daughter No problems noted. Social History Household Members: Family Housing: House Are you a primary adult caregiver to a significant other at home: No Do you presently have visiting nurse or other home services: Yes Alcohol intake: never Patient Tobacco Use Status: Current everyday Tobacco user Tobacco use type: Cigarette Cigarette Packs Per Day: 0 Cigarettes Per Day: 10 Years Smoked: 35 e-Cigarette/Vaping Use: Never Used Second Hand Smoke Exposure: No Substance Use Type: Former Substance User and Heroin Advance Directives Date on File: 03/13/21 service: No Current occupational status: disabled Review of Systems Const Reports as per HPI and Denies weakness ENT Reports Normal hearing present and Denies dizziness Card Reports as per HPI, Denies chest pain, Denies chest pain at rest, Denies chest pain with activity, Denies dyspnea and Denies dyspnea on exertion Resp Reports as per HPI, Denies cough, Denies dyspnea and Denies dyspnea on exertion GI Reports as per HPI, Denies abdominal pain, Denies nausea and Denies vomiting Musc Denies numbness Skin/Breast Reports as per HPI, Denies erythema and Denies wounds Neuro Reports Normal hearing present, Denies dizziness, Denies numbness, Denies Sensory deficit (Neuro) and Denies weakness Psych Reports no additional complaints Endo Reports no additional complaints Physical Exam Const General: healthy appearing and no acute distress Orientation/consciousness: patient oriented x3 HEENT Head: Yes normal to inspection Ears: hearing grossly normal bilaterally Mouth: Normal oral and palatal mucosa present Resp Effort & Inspection: normal respiratory effort and able to speak in complete sentences Auscultation: clear to auscultation bilaterally Cardio Jugular venous distension: no JVD Rate: regular rate Rhythm: regular rhythm Heart sounds: S1 normal heart sound present and S2 normal heart sound present Bruits: no abdominal aortic bruits, no carotid bruits, no femoral bruits and no renal bruits Peripheral pulses: Peripheral pulses 2+ throughout GI Inspection: Yes normal to inspection Palpation (GI): No Abdominal aortic bruit present Skin General skin exam: no rashes or lesions noted Wounds: no wounds Hair: normal Neuro General: patient oriented x3 Cranial nerves: Yes Normal hearing present Cognition (Neuro): normal cognition Gait exam (Neuro): Normal gait present Motor exam (neuro): 5/5 motor strength present throughout Sensory Exam: No Sensory deficit (Neuro) Extrem Other: Right lower extremity: Purple/red rash noted on the dorsum of the foot, not painful to palpation. Palpable DP pulses. General: Yes normal to inspection, Yes full ROM, Yes capillary refill normal and Yes normal gait Results Reviewed Results Reviewed: Right lower extremity arterial duplex: RIGHT LEG Common femoral artery: 217 cm/s, Multiphasic Profunda femoris artery: 89 cm/s, Multiphasic Superficial femoral artery (proximal): 108 cm/s, Multiphasic Superficial femoral artery (mid): 111 cm/s, Multiphasic Superficial femoral artery (distal): 128 cm/s, Multiphasic Proximal Popliteal artery: 85 cm/s, Multiphasic Mid posterior tibial artery: 60 cm/s, Multiphasic There is atherosclerotic disease throughout the lower extremity. US/US arterial duplex LE RT IMPRESSION: No hemodynamically significant stenosis in the right lower extremity. Assessment & Plan Assessment & Plan (1) PAD (peripheral artery disease): Comment: 03/19/2021 - angioplasty of right anterior tibial and peroneal artery 04/22/2021 - right 5th toe amputation 02/09/2023 - diagnostic angiogram 02/11/2023 - left BKA by General surgery Code(s): I73.9 - Peripheral vascular disease, unspecified Category: Medical Plan: Santhosh is presenting today as a follow up to venous insufficiency ultrasound, performed on 06/22/2024. He denies any vascular concerns today. He does note that he started with some red/purple spots on the dorsum aspect of his foot proximally 2 weeks ago. He denies any itchiness or pain in the area. He denies any specific injury to the area. He has not been seen for this by any medical collections representative. 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 We discussed that his ultrasound is negative for any arterial disease. We will have him follow up with us in a year with a follow up arterial duplex. We discussed the importance of following up in the appropriate time frame. We discussed that he can reach out to us any point, particularly if the vasculitis worsens or he has any other associated symptoms. We will follow up with him in approximately a year. If there are any questions or concerns, please do not hesitate to reach out to us. Orders: Orders US arterial duplex LE RT 1 Year I73.9 - Peripheral vascular disease, unspecified Coding Level of Care Code Est Pt Level 4 (67420) Diagnoses PAD (peripheral artery disease) I73.9 Comment Review of arterial duplex ultrasound
--- OUTSIDE RECORDS SUMMARY | 2024-09-29 13:17 | XMS_ITS | Clinical Summary ---
Author Organization [facility] Address [address] [place] [address] Phone Care Team Providers Care Lead Project Manager Name Role Phone Ivon Madera Primary Care Provider [phone] Allergies Active Allergy Reactions Criticality Noted Date [...] stage 2 (mild) 09/22/2019 11/29/2019 Dyslipidemia 11/28/2019 Immunizations Name Administration Dates Next Due Hepatitis [...] Office Visit [facility] [address] [facility] [address] [place] [address] Oren Saba MD [address] [address] Health Maintenance Due Date Last Done Comments [...] Name Priority Date/Time Associated Diagnosis Comments LAB [facility]ST[facility] Routine 11/12/2017 12:00 AM EDT from Last 3 Months or Most Recently Relevant to Health Maintenance Results * [facility] (11/12/2017 12:00 AM EDT) Carbon Dioxide (CO2) [...] [facility] GFR Calculated >60 ml/min [facility] 11/12/2017 [facility] Conversion LAB [id number] LICITED RESULTS Final Result [facility] from Last 3 Months or Most Recently Relevant to Health Maintenance Insurance ([id number]) [facility] ONE CARE DUAL SNP ([id number]) [place] [phone] Care Teams Lead Project Manager Relationship Specialty Start Date End Date Ivon Madera FNP [address] [place], [place] [phone] PCP - General 03/11/22
--- OUTSIDE RECORDS SUMMARY | 2024-09-29 13:18 | XMS_ITS | Patient Health Record ---
Author Organization [facility] Irma [facility]ser [place] Address [address] [place] [address] Care Team Providers Care Product Marketing Consultant Name Role Phone Ivon Madera Primary Care Provider Aki Millan Unavailable [phone] Reason For Referral No Information Plan Of Treatment No Information Insurance Providers Payer Name Payer Address Payer Phone Subscriber Number Group Number Insured Name Patient Relationship to Insured Coverage Start Date Coverage End Date [facility] [employer] Claims [address] [place] [id number] Santhosh Montanez Self - patient is the insured
--- OUTSIDE RECORDS SUMMARY | 2024-09-29 13:18 | XMS_ITS ---
Author Organization [facility] Address [address] [place] [address] Care Team Providers Care Train Announcer Name Role Phone Ivon Madera Primary Care Provider Aki Millan Unavailable [phone] Encounters Encounter Location Date Provider Diagnosis [facility] [address] [address] 10/29/2023 Aki Khalil Plan Of Treatment No Information Progress Notes * Bettie MUNOZOB:1965 ([age] yo M)Acc No.[id number]:10/29/2023 Progress Notes Patient:?Santhosh MUNOZ Provider:?Aki Khalil DPM :1965???Age:58 Y???Sex:Male Mark e:10/29/2023 Address:[address] [place], [place] [id number] Pcp:Ivon Madera Subjective: * Chief Complaints: * ??? * Medical History:? Objective: * Vitals:? Assessment: Plan: * Treatment: * Images: * The named appointment provid er may or may not be the originator of this progress note, and it is not deemed complete until electronically signed by the appointment provider. Sign off status: Pending * Provider:?Aki Khalil DPM Date:?2023 Generated for Rupesh victor/Sera/eTceceitting on:?09/29/2024 01:17 PM EST
--- OUTSIDE RECORDS SUMMARY | 2024-09-29 13:18 | XMS_ITS | Data Portability ---
Author Organization [facility], Main Office Address [address] [place] [address] Care Team Providers Care Screen Printing Press Operator Name Role Phone [facility] OTHER Assessment Encounter Date Assessment Date Assessment LastModified by Organization Details LastModified Time 01/10/2020 01/10/202012/23 bun 18, creat 0.8 Not available 01/10/2020 10:10:54 01/19/2020 01/19/202012/23 bun 18, creat 0.8 [email or web address] Not available 01/19/2020 14:36:36 01/25/2020 01/25/202012/23 bun [...] By Organization Details Last Modified Time 01/02/2020 [id number] type 2 diabetes: care instructions [email or web address] Not available 01/02/2020 14:33:29 Reason for Referral None Reported. Problems Name Problem SNOMED Code Status Onset Date Resolution Date Notes Provider Name and Address Organization Details Recorded Time Sepsis 68174761 Active [address], [address], [place], [address], [facility] 0 09:05:28 Long-term drug therapy Active [address], [address], [place], [address], [facility] [employer] [facility] 0 09:13:26 Uncontrolle d type 2 diabetes mellitus 115177224 Active [address], [address], [place], [address], [facility] 0 09:13:27 Human immunodefic iency virus infection 80505518 Active [address], [address], [place], [address], [facility] 0 09:13:28 Essential hypertensio n 45611874 Active [address], [address], [place], [address], [facility] 0 09:13:30 Acute injury of kidney 7202095998776 4108 Active [address], [address], [place], [address], [facility] 0 09:13:31 Osteomyelit is of ankle AND/OR foot 69123581 Active [address], [address], [place], [address], [facility] 0 09:13:34 Tobacco user 117679595 Active [address], [facility] [address], [place], [address], [facility] 0 09:26:37 Problem Notes None recorded. Medical Equipment None Reported. Allergies Allergen ID Allergen Name Allergen Category Reaction Reaction Severity Criticality Documentation Date Start Date Code Code System Note Provider Name and Address Organization Details Recorded Time 08919 trazodone medicatio n Not available Not available Not available 12/24/2019 66939 RxNorm Not Available Not Available Not Available Medications Not known to be on any medication Vitals Date Recorded Body temperature Oxygen saturation Oxygen saturation in Arterial blood by Pulse oximetry Systolic blood pressure Diastolic blood pressure Provider Name and Address Organization Details Last Updated DateTime 0 97.2 [degF] 97 % 97 % 127 mm[Hg] 62 mm[Hg] Maggi Urena [facility] 0 10:03:05 Date Recorded Heart rate Respiratory rate Body temperature Oxygen saturation Oxygen saturation in Arterial blood by Pulse oximetry Systolic blood pressure Diastolic blood pressure Provider Name and Address Organization Details Last Updated DateTime 0 76 /min 20 /min 97 [degF] 98 % 98 % 146 mm[Hg] 60 mm[Hg] MALGORZATA Titus [address] [facility] [address], [place], [address], [facility] 0 14:33:59 Date Recorded Body temperature Systolic blood pressure Diastolic blood pressure Provider Name and Address Organization Details Last Updated DateTime 01/25/2020 97.7 [degF] 130 mm[Hg] 74 mm[Hg] Maggi Urena [facility] Response 01/25/2020 11:22:12 Date Recorded Systolic blood pressure Diastolic blood pressure Provider Name and Address Organization Details Last Updated DateTime 01/02/2020 136 mm[Hg] 80 mm[Hg] Isidro Marcos MD [address] [facility] [address], [place], [address], [email or web address] 01/02/2020 14:09:39 Date Recorded Systolic blood pressure Diastolic blood pressure Provider Name and Address Organization Details Last Updated DateTime 01/31/2020 145 mm[Hg] 74 mm[Hg] Maggi Ayanna [facility] Response 01/31/2020 12:25:49 Social History Question Answer Notes LastModified by Organizat ion Details LastModified Time Tobacco Smoking Status Current Every Day Smoker Not Available [employer] 05/29/2020 03:13:20 Do You Or Have You Ever Used E-cigarettes Or Vape? Never Used Electronic Cigarettes [id number] Information not available 05/29/2020 Do You Or Have You Ever Used Smokeless Tobacco? Never Used Smokeless Tobacco [id number] Information not available 05/29/2020 How Much Tobacco Do You Smoke? 0.25 PPD [id number] Information not available 05/29/2020 How Many Years Have You Smoked Tobacco? 35 [id number] Information not available 05/29/2020 Sex: Unknown Functional Status None recorded. Mental Status None recorded. Family History Nothing Reported Notes:n/a Medical History No medical history recorded. Past Encounters Encounter ID Performer Location Encounter Start Date Encounter Closed Date Diagnosis/Indication Diagnosis SNOMED-CT Code Diagnosis ICD10 Code Diagnosis Note [id number] Anushka Jimenez [facility] on [address] [place] [address] 12/24/2019 08:55:50 12/30/2019 12:01:54 Osteomyelitis of ankle AND/OR foot 86063673 M86.9 see HPIleft heel. now on ertapenem per wound culture, 1 gm qd until 01/30/20fol lowed by wound carefollow wound care rec's.plav ix 75 mg qdAPAP prn for painWBAT with cane or walkerPT OT to maximize function.m onitor PICC site, wound. Acute inju ry of kidney 7357497707 6425412 N17.9 see HPI? secondary to sepsis, osteoresol mic in acute care with IVF.monito r labs. Sepsis 48998411 A41.9 see HPIplan as above.key tor labs, general status Essential hypertension 70747243 I10 BP low upon presenting to acute careBP rebounded and home regimen continued. SBP currently aboe MIPS goalmetopr olol 100 mg qdamlodipi ne 10 mg qdASAlasix 20 mg qdmonitor, titrate regimen prn Human immunodeficiency virus infection 90010177 B20 CD$ count 1-2. discussed with I&D about need for prophylaxi s abx. not recommende d at this time. monitor. Uncontroll ed type 2 diabetes mellitus 859498138 E11.65 FBS in acute care 3-400 range with continual adjustment to LA and SSI.now on lantus 30 units bid and humalog 8 u sched plus SSImetform in 1000 mg qdand trulicity weeklymoni tor. titrate regimen prn Long-term drug therapy 056253209 Z79.899 active opioid user, last used approx 7 days agomethado ne 55 mg po qdseroquel 100mg qd monitor Tobacco user 588102482 Z 72.0 approx 3/4 cigs qd. no urge to smoke currently, declines offer for replacemen t patch. monitor [id number] Isidro Marcos MD [facility] on [address] [place] [id number] 01/02/2020 14:09:13 01/05/2020 08:33:07 Osteomyelitis of ankle AND/OR foot 93961174 M86.072 left heel ulcerfollo wed by wound clinic priorconti nue Abcontinue wound caremonito r site Acute inju ry of kidney 6184674170 7985952 N17.8 presented in ARF with cre>2.0imp roved with IVFmonitor renal functionav oid nephrotoxi c meds as ablenephro consult prn Sepsis 94047679 A41.89 see HPIfollowe d by ID now to complete ertapenem IV coursestop date to be determined by ID add probioticm onitor cbc Human immunodeficiency virus infection 70252303 B20 continue current medication supdate ID with concerns in conditionm onitor cbc Anemia 955974936 D50.8 chronic anemiacont inue iron 325 mg qdmonitor cbc Uncontroll ed type 2 diabetes mellitus 366532054 E11.65 uncontroll ed DMnow onmetformi n 1000 mg bidlispro sstrulicit y 1.5 mg qdmonitor blood glucose and need to adjust med Essential hypertension 94287733 I10 lasix 20 mg qdmetoprol ol 100 mg qdnorvasc 10 mg qdmonitor bptitrate prn [id number] Maggi Lafayette [facility] on [address] [place] [phone] 01/10/2020 09:39:18 01/12/2020 10:58:58 Sepsis 38494203 A41.89 see HPIfollowe d by ID now to complete ertapenem IV courseHas f/u with ID 01/12 Osteomyeli tis of ankle AND/OR foot 89066147 M86.072 left heel ulcercont wound care as ordered F/u with vascular and wound clinicMoni tor Acute inju ry of kidney 5764644132 8242998 N17.8 presented in ARF with cre>2.0imp roved with IVFmonitor renal functionav oid nephrotoxi c meds as ablenephro consult prn Anemia 065810142 D50.8 chronic anemiacont inue iron 325 mg qdmonitor cbc Uncontroll ed type 2 diabetes mellitus 089453672 E11.65 Blood sugars consistent ly <100D/c lispro insulinCon tmetformin ER 1000 mg dailytruli city 1.5 mg qdlantus 30 units bidmonitor blood glucose and need to adjust med Essential hypertension 19693393 I10 lasix 20 mg qdmetoprol ol 100 mg qdnorvasc 10 mg qdmonitor bp [id number] MALGORZATA Titus [facility] on [address] [place] [phone] 01/19/2020 14:32:57 01/23/2020 16:40:49 Sepsis 58986062 A41.89 continue ertapenem IV course till 01/29f/u with ID Osteomyeli tis of ankle AND/OR foot 77802018 M86.072 cont wound care to left heel as ordered F/u with vascular and wound clinic Acute inju ry of kidney 0557565857 7697812 N17.8 creat normal at 1.0 on 01/10 monitor renal functionav oid nephrotoxi c meds as ablenephro consult prn Anemia 320272193 D50.8 continue iron 325 mg qdmonitor cbc Uncontroll ed type 2 diabetes mellitus 705220474 E11.65 metformin ER 1000 mg daily trulicity 1.5 mg qdlantus 30 units bidmonitor blood glucose, adjust med prn Essential hypertension 70560033 I10 lasix 20 mg qdmetoprol ol xl 100 mg qdnorvasc 10 mg qdmonitor bp [id number] Maggi Urena [facility] on [address] [place] [phone] 01/25/2020 11:20:33 01/30/2020 14:43:12 Sepsis 13109233 A41.89 see Eric tejada by ID now to complete ertapenem IV course (end date 01/29)probi Nam f/u with ID 01/26Follow labs weekly Osteomyeli tis of ankle AND/OR foot 69478861 M86.072 left heel ulcercont wound care as ordered F/u with vascular and wound clinicMoni tor Acute inju ry of kidney 3688193683 1676234 N17.8 presented in ARF with cre>2.0now appears resolved Anemia 882798702 D50.8 chronic anemiacont inue iron 325 mg qdmonitor cbc Uncontroll ed type 2 diabetes mellitus 952620824 E11.65 Blood sugars consistent ly <100metfor min ER 1000 mg dailytruli city 1.5 mg qddecrease lantus 20 units bidmonitor blood glucose and need to adjust med Essential hypertension 62663321 I10 lasix 20 mg qdmetoprol ol 100 mg qdnorvasc 10 mg qdmonitor bp [id number] Maggi Urena [facility] on [address] [place] [address] 01/31/2020 12:23:07 02/02/2020 16:26:19 Sepsis 87296163 A41.89 see Eric tejada by Betito now completed course ertapenemp robiotic seen by ID 01/26-infec tion felt to be adequately treated, no further antibiotic therapy needed at this time Osteomyeli tis of ankle AND/OR foot 64392061 M86.072 left heel ulcerF/u with vascular and wound clinicVNA services in place to continue daily wound care Acute inju ry of kidney 8290496340 3476319 N17.8 presented in ARF with cre>2.0now appears resolved Anemia 546195968 D50.8 chronic anemiacont inue iron 325 mg qdCBC appears stable Uncontroll ed type 2 diabetes mellitus 790278043 E11.65 Blood sugars consistent ly <100metfor min ER 1000 mg dailytruli city 1.5 mg qddecrease lantus 15 units bidf/u with PCP Essential hypertension 25074365 I10 lasix 20 mg qdmetoprol ol 100 [...] Meadows Member ID Guarantor Name 01/02/2020 1 [facility] - DOS PRIOR TO 2022 - DUAL ELIGIBLE (MEDICARE REPLACEMENT/ADV ANTAGE - HMO) Santhosh Montanez [id number] Santhosh Lisseth 01/10/2020 1 [facility] - DOS PRIOR TO 2022 - DUAL ELIGIBLE (MEDICARE REPLACEMENT/ADV ANTAGE - HMO) Santhosh Lisseth [id number] Santhosh Lisseth 01/19/2020 1 [facility] - DOS PRIOR TO 2022 - DUAL ELIGIBLE (MEDICARE REPLACEMENT/ADV ANTAGE - HMO) Santhosh Lisseth [id number] Santhosh Lisseth 01/25/2020 1 [facility] - DOS PRIOR TO 2022 - DUAL ELIGIBLE (MEDICARE REPLACEMENT/ADV ANTAGE - HMO) Santhosh Lisseth [id number] Santhosh Lisseth 01/31/2020 1 [facility] - DOS PRIOR TO 2022 - DUAL ELIGIBLE (MEDICARE REPLACEMENT/ADV ANTAGE - HMO) Santhosh Lisseth [id number] Santhosh Lisseth Notes Date Note Type Note Provider Name and Address Organization Details Recorded Time 01/02/2020 text/html Patient is a 54 yo male admit from hospital sent from wound clinic for abnormal MRI. Imaging concerning for osteomyelitis. On presentation lleb=380 degrees with wbc=20. Found to be in ARF with cre=2.09. Followed by ID and vascular surgery now to complete course of ertapenem PMH significant forHIV positivehtndm uncontrolledanemia admit to facility for continued care and therapy Isidro Marcos MD [address] [facility], [address], [place], [address], [facility] Response 01/02/2020 14:33:33 01/10/2020 text/html 54 yo male seen for acute rounding. Patient admitted for rehab and to complete course IV antibiotics for osteomyelitis of left heel. Patient doing well since admission. No complaints today. Maggi mosher, [facility] 01/10/2020 13:39:59 01/19/2020 text/html pt seen today fo r acute rounding visit. Pt admitted for rehab and to complete course IV antibiotics for osteomyelitis of left heel. pt now able to walk with walker. no diarrhea noted. bp is mildly elevated today. blood glucose checks normal on lantus and metformin. no concerns per nursing. MALGORZATA Titus [address] [facility], [address], [place], [address], [facility] 01/19/2020 14:39:41 01/25/2020 text/html 54 yo male seen for 30 day routine rounding. Patient admitted to complete course of IV antibiotics for osteomyelitis of left heel. Wound appears to be healing well. Patient ambulating with walker. Denies complaints today. Maggi mosher [facility] 01/25/2020 11:43:17 01/31/2020 text/html 54 yo male seen in preparation for discharge home today. Patient admitted for rehab and to complete IV antibiotic course for osteomyelitis of left heel. Has now completed antibiotic course with infection felt to be resolved per ID. VNA services in place to continue wound care at home. Able to ambulate independently with walker. Maggi mosher [facility] 01/31/2020 13:46:51
--- OUTSIDE RECORDS SUMMARY | 2024-09-29 13:18 | XMS_ITS | Data Portability ---
Author Organization [employer] Address [address] [place] [address] Care Team Providers Care Sub Assembly Team Worker Name Role Phone [facility] Referring Provider [phone] Assessment Encounter Date Assessment Date Assessment LastModified by Organization Details LastModified Time 01/06/2023 01/06/2023 I have reviewed and agree with the assessment and plan as documented by the director gift. I provided real-time medical direction for this [...] Orders cephalexin 500 mg capsule 2022 023 [facility], [address] [place] [address], [id number], 13:31:23 Patient TargetsNo targets recorded. Patient InstructionsNo [...] Address Organization Details Last Updated DateTime 3 77663.5 6 g 100 % 100 % 16 [...] SNOMED-CT Code Diagnosis ICD10 Code Diagnosis Note [id number] Kelley Bowie MD Main - [address] [address] 01/06/2023 13:23:09 01/06/2023 16:14:15 Cellulitis 907460875 L03.90 Health Concerns Section Related Observation LastModified by Organization Detai ls LastModified Time None Recorded Concern Status LastModified by Organization Details LastModified Time None Recorded Advance Directives Directive None Recorded Payers Encounter Date Sequence Insurance Name Policy Number Policy [employer]ows Covered Member ID [employer]ows Member ID Guarantor Name 01/06/2023 1 [facility] - DOS ON OR AFTER 2022 - DUAL ELIGIBLE - [facility] [employer] AND ONE [employer] (MEDICARE REPLACEMENT/ADV ANTAGE - HMO) Santhosh Lisseth [id number] Santhosh Bearden Lisseth Notes Date Note Type [...] to process visit Kelley Bowie MD [address] [facility],[address], [place], [address], [place] 01/06/2023 13:27:04
== END 2024-09-29 11:16 | disposition home or self-care (01) ==
PROVIDERS: PCP Registered Nurse; Visit Provider Physician Assistant Surgical
DX: I73.9 Peripheral vascular disease, unspecified (principal)
CPT/HCPCS: 99214

== ENCOUNTER → 2024-09-29 11:03 | Outpatient (BNVA) | payer OTHER, SELFPAY | PROVIDERS: PCP Registered Nurse; Visit Provider Physician Assistant Surgical | DX: I73.9 Peripheral vascular disease, unspecified (principal) | CPT/HCPCS: 99212 ==

== ENCOUNTER 2024-10-20 11:03 | Outpatient (REF) | payer OTHER, SELFPAY ==
[2024-10-20 14:17] LABS: MANUAL DIFF FLAG NO
[2024-10-20 14:19] LABS: Basophils Absolute Auto 0.1 X10*3/uL (0.0-0.2); Basophils Percent Auto 1.1 % (0-2); Eosinophils Absolute Auto 0.2 X10*3/uL (0.0-0.4); Eosinophils Percent Auto 2.2 % (0-4); Hematocrit 29.3 % (42.0-52.0); Hemoglobin 10.4 g/dl (14.0-18.0); Imm Gran Abs Auto 0.02 X10*3/uL (0.00-0.03); Imm Gran Pct Auto 0.2 % (0.0-0.4); Lymphocytes Absolute Auto 1.8 X10*3/uL (1.2-4.9); Lymphocytes Percent Auto 22.2 % (20-40); Mean Corpuscular HGB Conc 35.5 g/dl (31.0-36.0); Mean Corpuscular Volume 90.2 fL (80.0-98.0); Mean Platelet Volume 12.8 fL (9.4-12.4); Monocytes Absolute Auto 0.4 X10*3/uL (0.1-1.2); Monocytes Percent Auto 4.7 % (2-11); Neutrophils Absolute Auto 5.6 x10*3/uL (2.0-8.3); Neutrophils Percent Auto 69.6 % (45-73); Platelet Count 114 X10*3/uL (160-400); Red Blood Count 3.25 X10*6/uL (4.60-5.80); Red Cell Distribution Width 12.4 % (11.0-16.0)
[2024-10-20 15:07] LABS: Alanine Aminotransferase 17 U/L (0-40); Albumin Level 4.5 g/dL (3.5-5.0); Alkaline Phosphatase 75 U/L (39-117); Anion Gap 16 (12-20); Aspartate Amino Transferase 18 U/L (5-37); Bilirubin Total 0.4 mg/dL (0.0-1.0); Blood Urea Nitrogen 54 mg/dL (9-16); Calcium 9.7 mg/dL (8.4-10.2); Carbon Dioxide 23 mmol/L (22-29); Chloride 106 mmol/L (96-108); Estimated Glomerular Filt Rate 27; Glucose Random 331 mg/dL (60-115); Potassium 5.9 mmol/L (3.3-5.1); Sodium 139 mmol/L (135-145); Total Protein 8.8 g/dL (6.5-8.0)
[2024-10-20 17:18] LABS: CT PCR NOT DETECTED (Not Detect.); NG PCR NOT DETECTED (Not Detect.)
[2024-10-21 08:29] LABS: HBS Num1 7.95 mIU/mL (0-7.99); HBc Num1 9.68 S/CO (0.00-0.79); Hepatitis B Surface Antigen Negative (Negative); ~HepC Num1 13.03 S/CO (0.00-0.79); ~Hepatitis B Surface Antibody NONREACTIVE (Nonreactive); ~Hepatitis C Antibody Reactive (Nonreactive)
[2024-10-21 08:33] LABS: Syphilis Screen Nonreactive (Nonreactive)
[2024-10-21 10:01] LABS: HBc Num3 9.72 S/CO; Hepatitis B Core Antibody Reactive (Nonreactive)
[2024-10-21 15:08] LABS: HIV RNA PCR Qn Copies 44 copies/mL (NOT DETECTED); HIV RNA PCR Qn Log Copies 1.64 (NOT DETECTED)
[2024-10-22 05:48] LABS: Hepatitis B Core Antibody IgM NON-REACTIVE (NON-REACTIVE)
[2024-10-22 15:58] LABS: HCV Log PCR <1.18 NOT DETECTED Log IU/mL (NOT DETECTED); HepC Viral Load <15 NOT DETECTED IU/mL (NOT DETECTED)
[2024-10-23 14:19] LABS: TS Negative Control Passed; TS Panel A 0; TS Panel B 0; TS Positive Control Passed; TSpotTB Negative (Negative)
[2024-10-25 14:09] LABS: Absolute CD3 Count 1545 cells/uL (840-3060); Absolute CD4 Count 541 cells/uL (490-1740); Absolute CD8 Count 992 cells/uL (180-1170); Absolute Lymphocytes 1976 cells/uL (850-3900); CD4 CD8 Ratio 0.55 (0.86-5.00); Percent CD3 Cells 78 % (57-85); Percent CD4 Cells 27 % (30-61); Percent CD8 Cells 50 % (12-42)
[2024-10-26 04:06] LABS: Hepatitis A Antibody IgG REACTIVE (Nonreactive); ~Hepatitis A Antibody IgG 10.82 S/CO (0.00-0.99)
== END 2024-10-20 11:04 | disposition home or self-care (01) ==
LOC: HO.CHCLDS 11:03
PROVIDERS: Visit Provider Internal Medicine
DX: Z21 Asymptomatic human immunodeficiency virus [HIV] infection status (principal)
CPT/HCPCS: 36415; 80053; 85025; 86359; 86360; 86481; 86704; 86705; 86706; 86708; 86780; 86803; 87340; 87491; 87522; 87536; 87591

== ENCOUNTER 2024-10-21 09:44 | Emergency (ER) | payer OTHER, SELFPAY ==
[2024-10-21 09:50] VITALS: BP 147/78; PULSE 90; RESP 16; TEMP 37; O2SAT 100; BMI 34.1
--- NOTE | 2024-10-21 09:54 | ECG_ITS ---
Test Reason : abnormal labs/elevated potassium Blood Pressure : */* mmHG Vent. Rate : 89 BPM Atrial Rate : 89 BPM P-R Int : 144 ms QRS Dur : 76 ms QT Int : 336 ms P-R-T Axes : 54 -16 32 degrees QTcB Int : 408 ms Normal sinus rhythm Normal ECG When compared with ECG of 14-Nov-2020 12:47, T wave inversion no longer evident in Inferior leads Referred By: Generic ED Physician Electronically Signed By: Ed Hill
[2024-10-21 10:22] LABS: MANUAL DIFF FLAG NO
[2024-10-21 10:25] LABS: Basophils Absolute Auto 0.1 X10*3/uL (0.0-0.2); Basophils Percent Auto 0.9 % (0-2); Eosinophils Absolute Auto 0.2 X10*3/uL (0.0-0.4); Eosinophils Percent Auto 2.2 % (0-4); Hematocrit 28.8 % (42.0-52.0); Hemoglobin 10.4 g/dl (14.0-18.0); Imm Gran Abs Auto 0.03 X10*3/uL (0.00-0.03); Imm Gran Pct Auto 0.3 % (0.0-0.4); Lymphocytes Absolute Auto 2.1 X10*3/uL (1.2-4.9); Mean Corpuscular HGB Conc 36.1 g/dl (31.0-36.0); Mean Corpuscular Hemoglobin 32.4 pg (27.0-33.0); Mean Corpuscular Volume 89.7 fL (80.0-98.0); Mean Platelet Volume 12.4 fL (9.4-12.4); Monocytes Absolute Auto 0.5 X10*3/uL (0.1-1.2); Monocytes Percent Auto 5.1 % (2-11); Neutrophils Absolute Auto 6.1 x10*3/uL (2.0-8.3); Neutrophils Percent Auto 68.5 % (45-73); Platelet Count 117 X10*3/uL (160-400); Red Blood Count 3.21 X10*6/uL (4.60-5.80); Red Cell Distribution Width 12.1 % (11.0-16.0); White Blood Count 8.9 X10*3/uL (4.8-10.8)
[2024-10-21 10:36] LABS: Alanine Aminotransferase 18 U/L (0-40); Albumin Level 4.3 g/dL (3.5-5.0); Alkaline Phosphatase 76 U/L (39-117); Anion Gap 12 (12-20); Aspartate Amino Transferase 16 U/L (5-37); Bilirubin Total 0.3 mg/dL (0.0-1.0); Blood Urea Nitrogen 54 mg/dL (9-16); Calcium 9.5 mg/dL (8.4-10.2); Carbon Dioxide 23 mmol/L (22-29); Chloride 108 mmol/L (96-108); Creatinine Clr Calc Pharmacy 37.4; Estimated Glomerular Filt Rate 29; Glucose Random 285 mg/dL (60-115); Potassium 5.3 mmol/L (3.3-5.1); Sodium 138 mmol/L (135-145); Total Protein 8.4 g/dL (6.5-8.0)
[2024-10-21 11:24] VITALS: BP 121/56; PULSE 87; RESP 12; TEMP 36.6; O2SAT 100
[2024-10-21] MEDS: 0.9 % Sodium Chloride 1,000 ML 999 ML IV (11:41)
--- NOTE | 2024-10-21 11:43 | ED.RECABL ---
HPI - Recheck/Abnormal Lab/Rx General Chief Complaint: Recheck/Abnormal Lab/Rx Stated Complaint: Abnormal labs, sent by Dr Time Seen by Provider: 10/21/24 11:20 Source: patient, RN notes reviewed and old records reviewed Mode of arrival: ambulatory Limitations: no limitations History of Present Illness ED Provider: Toshia Adrian PA-C HPI narrative: 59 yo male with history of CKD, DM, s/p BKA LLE, anemia of chronic disease, PAD who presents to the ER for evaluation of abnormal lab workup at PCP office yesterday. He reports he got a call that his potassium and creatinine levels were elevated and he should seek emergency evaluation. Patient has no physical symptoms. He denies any chest pain, shortness of breath, muscle cramping or pain. He states has been eating and drinking normally. He denies any nausea, vomiting, diarrhea or abdominal pain. MD complaint: abnormal lab Initial visit (ago): day(s) (1) Returns today for: called because of abnormal lab/test Description of abnormal result: Elevated potassium and creatinine Symptoms since prior visit: no new symptoms Associated symptoms: none Related Data Home Medications ?Medication ?Instructions ?Recorded ?Confirmed aspirin 81 mg tablet,delayed 81 mg PO DAILY 08/08/20 02/02/23 release blood sugar diagnostic #10 ea 08/08/20 10/16/20 cholecalciferol (vitamin D3) 50 50 mcg PO DAILY 08/08/20 02/02/23 mcg (2,000 unit) tablet furosemide 20 mg tablet 20 mg PO DAILY PRN swelling 08/08/20 02/02/23 hydrochlorothiazide 25 mg tablet 25 mg PO DAILY 08/08/20 02/02/23 insulin syringe-needle U-100 1 mL #10 ea 08/08/20 10/16/20 29 gauge x 1/2 quetiapine 100 mg tablet 100 mg PO DAILY@1800 08/08/20 02/08/23 lancets 33 gauge #100 ea 11/08/20 metformin 500 mg tablet,extended 1,000 mg PO BID 11/08/20 02/02/23 release 24 hr pen needle, diabetic 32 gauge x #50 ea 11/08/20 methadone 10 mg/mL oral concentrate 30 mg PO DAILY 11/12/20 03/13/21 emtricitabine 200 mg-rilpivirine 1 tab PO DAILY 12/05/20 02/02/23 25 mg-tenofovir alafenam 25 mg tablet (Odefsey) insulin aspart U-100 100 unit/mL 10 - 20 unit subcut TIDWM 12/05/20 02/02/23 (3 mL) subcutaneous pen (Novolog FlexPen U-100 Insulin aspart) insulin degludec 100 unit/mL (3 30 unit subcut BEDTIME 04/22/21 02/02/23 mL) subcutaneous pen (Tresiba FlexTouch U-100 insulin) amlodipine 5 mg tablet 5 mg PO DAILY 02/02/23 02/02/23 rosuvastatin 20 mg tablet 20 mg PO BEDTIME 02/02/23 02/02/23 Previous Rx's ?Medication ?Instructions ?Recorded lisinopril 5 mg tablet 5 mg PO DAILY #30 tabs 03/20/21 Allergies Allergy/AdvReac Type Severity Reaction Status Date / Time trazodone [TRAZODONE] Allergy Unknown UNKNOWN Verified 10/21/24 09:53 Review of Systems Review of Systems: Yes all other systems are reviewed and are negative [facility] Past Medical History Medical History Gangrene of toe of left foot Gangrene of left foot Toe ulcer Hx of drug dependence GERD (gastroesophageal reflux disease) Hepatitis Cirrhosis Depression COVID-19 vaccine administered History of hyperbaric oxygen therapy Hyperlipidemia Hypertension Diabetes HIV (human immunodeficiency virus infection) Osteomyelitis Surgical History Below-knee amputation of left lower extremity (~02/11/23) H/O skin graft Status post debridement S/P angiogram of extremity Family History Family History Father Diabetes HTN (hypertension) Mother HTN (hypertension) Daughter No problems noted. Social History Social History Household Members: Family Housing: House Are you a primary emergency care attendant to a significant other at home: No Do you presently have visiting nurse or other home services: Yes Alcohol intake: never Patient Tobacco Use Status: Current everyday Tobacco user Tobacco use type: Cigarette Cigarette Packs Per Day: 0 Cigarettes Per Day: 10 Years Smoked: 35 Smoked in Last 30 Days: Yes e-Cigarette/Vaping Use: Never Used Second Hand Smoke Exposure: No Use of substances other than those prescribed or required for medical reasons: No Substance Use Type: Former Substance User and Heroin Advance Directives: Yes Advance Directives on File: Yes Advance Directives Date on File: 03/13/21 Do you have a plan to hurt others: No Plan service: No Current occupational status: disabled Physical Exam Vital Signs: Vital Signs: Last Vital Signs Temp 97.8 F 10/21/24 13:47 Pulse 87 10/21/24 13:47 Resp 12 10/21/24 13:47 BP 121/56 L 10/21/24 13:47 Pulse Ox 100 10/21/24 13:47 O2 Del Method Room Air 10/21/24 13:47 BMI result Body Mass Index 34.1 Appearance: Alert. Oriented X3. No acute distress. HEENT: normal external inspection Neck: Normal inspection CVS: Normal heart rate and rhythm. Respiratory: No respiratory distress. Breath sounds normal. Skin: Skin warm and dry. Normal skin color. Normal skin turgor. No rashes. Extremities: s/p left BKA Neuro/psych: Oriented X 3. grossly normal, nonfocal Medications Administered Discontinued Medications Generic Name Dose Route Start Last Admin Trade Name Freq PRN Reason Stop Dose Admin Sodium Chloride 1,000 mls @ 999 mls/hr 10/21/24 11:30 10/21/24 13:28 Ns IV 10/21/24 12:30 Infused .Q1H1M LIBRADO Infusion Medical Decision Making Medical Decision Making MDM Narrative: 59-year-old male presenting to the ER for evaluation of a potassium of 5.9 and serum creatinine of 2.48. His baseline creatinine is 1.64 back in August. He had a potassium of 4.7 at that time. Was sent to the ER today for elevated levels. Repeat labs today show potassium of 5.3 and creatinine improved to 2.30. He was given 1 L of IV fluids. No changes of hyperkalemia on EKG he is on lisinopril. This needs to be monitored by his primary care doctor. He reports he follows with a operations and maintenance manager already. At this time is stable for discharge home with outpatient follow-up. Differential Diagnosis Differential Diagnoses: The differential diagnosis associated with the presentation includes progression of CKD, hemolysis, adverse side effect of lisinopril, dietary affect, dehydration Admission/Observation Consideration of admission/observation: Escalation of care including admission/observation considered Lab Data MDM Lab Attestation statement: I reviewed the patient's lab results. Anemia of chronic disease, mild thrombocytopenia, improved hyperkalemia and BUN and creatinine 10/21/24 10:15 10/21/24 10:15 Labs: Lab Results 10/21/24 Range/Units 10:15 WBC 8.9 (4.8-10.8) X10*3/uL RBC 3.21 L (4.60-5.80) X10*6/uL Hgb 10.4 L (14.0-18.0) g/dl Hct 28.8 L (42.0-52.0) % MCV 89.7 (80.0-98.0) fL MCH 32.4 (27.0-33.0) pg MCHC 36.1 H (31.0-36.0) g/dl RDW 12.1 (11.0-16.0) % Plt Count 117 L (160-400) X10*3/uL MPV 12.4 (9.4-12.4) fL Immature Gran % (Auto) 0.3 (0.0-0.4) % Neut % (Auto) 68.5 (45-73) % Lymph % (Auto) 23.0 (20-40) % [place] % (Auto) 5.1 (2-11) % Eos % (Auto) 2.2 (0-4) % Baso % (Auto) 0.9 (0-2) % Lymph # (Auto) 2.1 (1.2-4.9) X10*3/uL [place] # (Auto) 0.5 (0.1-1.2) X10*3/uL Eos # (Auto) 0.2 (0.0-0.4) X10*3/uL Baso # (Auto) 0.1 (0.0-0.2) X10*3/uL Abs Immat Gran (auto) 0.03 (0.00-0.03) X10*3/uL Absolute Neuts (auto) 6.1 (2.0-8.3) x10*3/uL Absolute Nucleated RBC 0.000 (0.0-0.012) X10*3/uL Nucleated RBC % (auto) 0.0 (0.0-0.2) /100WBC Sodium 138 (135-145) mmol/L Potassium 5.3 H (3.3-5.1) mmol/L Chloride 108 (96-108) mmol/L Carbon Dioxide 23 (22-29) mmol/L Anion Gap 12 (12-20) BUN 54 H (9-16) mg/dL Creatinine 2.30 H (0.5-1.4) mg/dL Estim Creat Clear Calc 37.4 Estimated GFR 29 Random Glucose 285 H (60-115) mg/dL Calcium 9.5 (8.4-10.2) mg/dL Total Bilirubin 0.3 (0.0-1.0) mg/dL AST 16 (5-37) U/L ALT 18 (0-40) U/L Alkaline Phosphatase 76 (39-117) U/L Total Protein 8.4 H (6.5-8.0) g/dL Albumin 4.3 (3.5-5.0) g/dL Independent Interpretation I performed an independent interpretation of an: EKG Interpretation: normal sinus rhythm, ventricular rate 89 beats per minute, no ST segment elevations or depressions, no peaked T-waves External Record Review External record reviewed: Office record, Outpatient record and Prior outpatient labs Prescription Management I considered prescription management with: Other ( [place]) Chronic Conditions Patient?s care impacted by: Diabetes and Other ( CKD) Critical Care Time Critical Care Time Critical Care Time: No Discharge Plan Discharge Clinical Impression: Acute hyperkalemia CKD (chronic kidney disease) Qualifiers: Chronic kidney disease stage: unspecified stage Qualified Code(s): N18.9 - Chronic kidney disease, unspecified Patient Disposition: Home, Self-Care Instructions: Chronic Kidney Disease (ED), Potassium Content of Foods List (ED), Chronic Kidney Disease Diet (DC), Hyperkalemia (ED) Additional Instructions: follow up with your doctor if you have ongoing problems with elevated potassium levels your lisinopril may need to be removed from your medication list (defer this decision to your primary care doctor) drink plenty of water and avoid foods high in potassium - see the list provided. If you develop new or worsening symptoms call 911 or come back to the ER for further evaluation. Prescriptions: No Action lisinopril 5 mg Tablet 5 mg PO DAILY Qty: 30 0RF Protocol: Hold for SBP< HOLD for SBP < : 90 insulin degludec [Tresiba FlexTouch U-100] 100 unit/mL (3 mL) insulin pen 30 unit subcut BEDTIME methadone 10 mg/mL Concentrate 30 mg PO DAILY insulin aspart U-100 [Novolog FlexPen U-100 Insulin] 100 unit/mL (3 mL) insulin pen 10 - 20 unit subcut TIDWM Odefsey 200-25-25 mg tablet 1 tab PO DAILY amlodipine 5 mg tablet 5 mg PO DAILY rosuvastatin 20 mg tablet 20 mg PO BEDTIME hydrochlorothiazide 25 mg tablet 25 mg PO DAILY quetiapine 100 mg tablet 100 mg PO DAILY@1800 (DME) blood sugar diagnostic Strip See Rx Instructions Not Applicable .MEDSUPPLY Qty: 10 Rx Instructions: As directed aspirin 81 mg tablet,delayed release (DR/EC) 81 mg PO DAILY furosemide 20 mg tablet 20 mg PO DAILY PRN (Reason: swelling) (DME) insulin syringe-needle U-100 1 mL 29 gauge x 1/2 syringe See Rx Instructions .ROUTE TID Qty: 10 Rx Instructions: As directed cholecalciferol (vitamin D3) 50 mcg (2,000 unit) tablet 50 mcg PO DAILY (DME) lancets 33 gauge misc See Rx Instructions Not Applicable .MEDSUPPLY Qty: 100 Rx Instructions: As directed (DME) pen needle, diabetic 32 gauge x 5/32 needle See Rx Instructions .ROUTE .MEDSUPPLY Qty: 50 Rx Instructions: As directed metformin 500 mg tablet extended release 24 hr 1,000 mg PO BID Interventions: ED Discharge Assessment Last Done: 10/21/24 13:47 Discharge Date/Time: 10/21/24 13:48 Print Language: Bangladeshi
--- NOTE | 2024-10-21 12:48 | MHC.EDTECH ---
pt had an output of 450mL of urine in the urinal
[2024-10-21 13:47] VITALS: BP 121/56; PULSE 87; RESP 12; TEMP 36.6; O2SAT 100
== END 2024-10-21 13:48 | disposition home or self-care (01) ==
PROVIDERS: Emergency Provider Emergency Medicine; PCP Registered Nurse
DX: R79.89 Other specified abnormal findings of blood chemistry (principal); I12.9 Hypertensive chronic kidney disease with stage 1 through stage 4 chronic kidney disease, or unspecified chronic kidney disease; N18.9 Chronic kidney disease, unspecified; R11.2 Nausea with vomiting, unspecified; E87.5 Hyperkalemia; E11.22 Type 2 diabetes mellitus with diabetic chronic kidney disease; D63.1 Anemia in chronic kidney disease; F17.210 Nicotine dependence, cigarettes, uncomplicated; Z79.899 Other long term (current) drug therapy; Z79.4 Long term (current) use of insulin
CPT/HCPCS: 36415; 80053; 85025; 93005; 96360; 96361; 99284; 99285

== ENCOUNTER → 2024-10-21 09:54 | Outpatient (BNV) | payer OTHER, SELFPAY | PROVIDERS: Emergency Provider Emergency Medicine; PCP Registered Nurse; Visit Provider Internal Medicine Cardiovascular Disease | DX: E87.5 Hyperkalemia (principal); R79.9 Abnormal finding of blood chemistry, unspecified | CPT/HCPCS: 93010 ==

== ENCOUNTER 2024-12-01 10:49 | Outpatient (REF) | payer OTHER, SELFPAY ==
--- OUTSIDE RECORDS SUMMARY | 2024-12-01 12:28 | XMS_ITS | Clinical Summary ---
Author Organization [facility] Address [address] [place] [address] Phone Care Team Providers Care Cereal Supervisor Name Role Phone Ivon Madera Primary Care Provider Allergies Active Allergy Reactions Criticality Noted Date [...] 2 (mild) 09/22/2019 11/29/2019 Dyslipidemia 11/28/2019 Immunizations Immunization Administration Dates Next Due Hepatitis A 11/19/2000,04/23/2000 [...] Visit [facility] [address] [place] [address] Oren Saba MD [address] [address] Health Maintenance Due Date Last [...] , 08/15/2020, Additional history exists Pneumococcal Vaccine: 50+ Years Completed 05/12/2024, 02/15/2018, 08/28/2014, Additional history exists Pneumococcal Vaccine: Peds ( 0 to 5 Years) and At-Risk Patients (6 to 49 Years) Discontinued 05/12/2024, 02/15/2018, 08/28/2014, Additional history exists Procedures Procedure Name Priority Date/Time Associated Diagnosis Comments LAB [facility] Routine 11/12/2017 12:00 AM EDT from Last 3 Months or Most Recently Relevant to Health Maintenance Results * Lab [facility] (11/12/2017 12:00 AM EDT) Carbon Dioxide (CO2) [...] ml/min [facility] 11/12/2017 us [facility]ctma Conversion LAB [id number] LICITED RESULTS Final Result [facility] from Last 3 Months or Most Recently Relevant to Health Maintenance [place] [address] [place] [address] ([id number]) [place] [id number] [place] [address] [place] [phone] [facility] [employer] ([id number]) [place] [id number] Care Teams Cereal Supervisor Relationship Specialty Start Date End Date Ivon Madera FNP [address] [place] [id number] PCP - General 03/11/22
--- OUTSIDE RECORDS SUMMARY | 2024-12-01 12:28 | XMS_ITS | Patient Health Record ---
Author Organization [facility] Irma bowser [place] Address [address] [place] [id number] Care Team Providers Care Small Equipment Operator Name Role Phone Ivon Madera Primary Care Provider Aki Millan Unavailable [phone] Reason For Referral No Information Plan Of Treatment No Information Insurance Providers Payer Name Payer Address Payer Phone Subscriber Number Group Number Insured Name Patient Relationship to Insured Coverage Start Date Coverage End Date [facility] [employer] Claims [address] [place] [id number] Santhosh Montanez Self - patient is the insured
--- OUTSIDE RECORDS SUMMARY | 2024-12-01 12:29 | XMS_ITS | Data Portability ---
Author Organization [facility], Main Office Address [address] [facility] [address] [place] [address] Care Team Providers Care Biomedical Service Engineer Name Role Phone [facility] OTHER Assessment Encounter Date Assessment Date Assessment LastModified by Organization Details LastModified Time 01/10/2020 01/10/202012/23 bun 18, creat 0.8 Not available 01/10/2020 10:10:54 01/19/2020 01/19/202012/23 bun 18, creat 0.8 [email or web address] Not available 01/19/2020 14:36:36 01/25/2020 01/25/202012/23 bun [...] By Organization Details Last Modified Time 01/02/2020 [id number] type 2 diabetes: care instructions [email or web address] Not available 01/02/2020 14:33:29 Reason for Referral None Reported. Problems Name Problem SNOMED Code Status Onset Date Resolution Date Notes Provider Name and Address Organization Details Recorded Time Sepsis 85080435 Active [address], [address], [place], [address], [facility] 0 09:05:28 Long-term drug therapy Active [address], [address], [place], [address], [facility] 0 09:13:26 Uncontrolle d type 2 diabetes mellitus 174774013 Active [address], [address], [place], [address], [facility] 0 09:13:27 Human immunodefic iency virus infection 96894012 Active [address], [address], [place], [address], [facility] 0 09:13:28 Essential hypertensio n 67917273 Active [address], [address], [place], [address], [facility] 0 09:13:30 Acute injury of kidney 8017094690391 4108 Active [address], [address], [place], [address], [facility] 0 09:13:31 Osteomyelit is of ankle AND/OR foot 24753205 Active [address], [address], [place], [address], [facility] 0 09:13:34 Tobacco user 367428401 Active [address], [address], [place], [address], [facility] 0 09:26:37 Problem Notes None recorded. Medical Equipment None Reported. Allergies Allergen ID Allergen Name Allergen Category Reaction Reaction Severity Criticality Documentation Date Start Date Code Code System Note Provider Name and Address Organization Details Recorded Time trazodone medicatio n Not available Not available Not available 12/24/2019 [address] [facility] [address], [place], [address], [facility] 0 08:56:54 Medications Not known to be on any medication Vitals Date Recorded Body temperature Oxygen saturation Oxygen saturation in Arterial blood by Pulse oximetry Systolic blood pressure Diastolic blood pressure Provider Name and Address Organization Details Last Updated DateTime 0 97.2 [degF] 97 % 97 % 127 mm[Hg] 62 mm[Hg] Maggi Urena [facility] 0 10:03:05 Date Recorded Heart rate Respiratory rate Body temperature Oxygen saturation Oxygen saturation in Arterial blood by Pulse oximetry Systolic blood pressure Diastolic blood pressure Provider Name and Address Organization Details Last Updated DateTime 0 76 /min 20 /min 97 [degF] 98 % 98 % 146 mm[Hg] 60 mm[Hg] MALGORZATA Titus [address] [facility], [address], [place], [address], [facility] 0 14:33:59 Date Recorded Body temperature Systolic blood pressure Diastolic blood pressure Provider Name and Address Organization Details Last Updated DateTime 01/25/2020 97.7 [degF] 130 mm[Hg] 74 mm[Hg] Maggi Urena [facility] 01/25/2020 11:22:12 Date Recorded Systolic blood pressure Diastolic blood pressure Provider Name and Address Organization Details Last Updated DateTime 01/02/2020 136 mm[Hg] 80 mm[Hg] Isidro Marcos MD [address] [facility], [address], [place], [address], [facility] 01/02/2020 14:09:39 Date Recorded Systolic blood pressure Diastolic blood pressure Provider Name and Address Organization Details Last Updated DateTime 01/31/2020 145 mm[Hg] 74 mm[Hg] Maggi Urena [facility] 01/31/2020 12:25:49 Social History Question Answer Notes LastModified by Organizat ion Details LastModified Time Tobacco Smoking Status Current Every Day Smoker Not Available [facility] 05/29/2020 03:13:20 Do You Or Have You Ever Used E-cigarettes Or Vape? Never Used Electronic Cigarettes [id number] Information not available 05/29/2020 Do You Or Have You Ever Used Smokeless Tobacco? Never Used Smokeless Tobacco [id number] Information not available 05/29/2020 How Much Tobacco Do You Smoke? 0.25 PPD [id number] Information not available 05/29/2020 How Many Years Have You Smoked Tobacco? 35 [id number] Information not available 05/29/2020 Sex: Unknown Functional Status None recorded. Mental Status None recorded. Family History Nothing Reported Notes:n/a Medical History No medical history recorded. Past Encounters Encounter ID Performer Location Encounter Start Date Encounter Closed Date Diagnosis/Indication Diagnosis SNOMED-CT Code Diagnosis ICD10 Code Diagnosis Note [id number] Anushka Jimenez [facility] on [address] [place] [address] 12/24/2019 08:55:50 12/30/2019 12:01:54 Osteomyelitis of ankle AND/OR foot 76195569 M86.9 see HPIleft heel. now on ertapenem per wound culture, 1 gm qd until 01/30/20fol lowed by wound carefollow wound care rec's.plav ix 75 mg qdAPAP prn for painWBAT with cane or walkerPT OT to maximize function.m onitor PICC site, wound. Acute inju ry of kidney 9192007953 7253349 N17.9 see HPI? secondary to sepsis, osteoresol mic in acute care with IVF.monito r labs. Sepsis 35322806 A41.9 see HPIplan as above.key tor labs, general status Essential hypertension 60747450 I10 BP low upon presenting to acute careBP rebounded and home regimen continued. SBP currently aboe MIPS goalmetopr olol 100 mg qdamlodipi ne 10 mg qdASAlasix 20 mg qdmonitor, titrate regimen prn Human immunodeficiency virus infection 01493233 B20 CD$ count 1-2. discussed with I&D about need for prophylaxi s abx. not recommende d at this time. monitor. Uncontroll ed type 2 diabetes mellitus 432322173 E11.65 FBS in acute care 3-400 range with continual adjustment to LA and SSI.now on lantus 30 units bid and humalog 8 u sched plus SSImetform in 1000 mg qdand trulicity weeklymoni tor. titrate regimen prn Long-term drug therapy 092931893 Z79.899 active opioid user, last used approx 7 days agomethado ne 55 mg po qdseroquel 100mg qd monitor Tobacco user 453781784 Z 72.0 approx 3/4 cigs qd. no urge to smoke currently, declines offer for replacemen t patch. monitor [id number] Isidro Marcos MD [facility] on [address] [place] [address] 01/02/2020 14:09:13 01/05/2020 08:33:07 Osteomyelitis of ankle AND/OR foot 06136221 M86.072 left heel ulcerfollo wed by wound clinic priorconti nue Abcontinue wound caremonito r site Acute inju ry of kidney 2333992218 0743984 N17.8 presented in ARF with cre>2.0imp roved with IVFmonitor renal functionav oid nephrotoxi c meds as ablenephro consult prn Sepsis 56579874 A41.89 see HPIfokarina tejada by ID now to complete ertapenem IV coursestop date to be determined by ID add probioticm onitor cbc Human immunodeficiency virus infection 05914458 B20 continue current medication supdate ID with concerns in conditionm onitor cbc Anemia 390982614 D50.8 chronic anemiacont inue iron 325 mg qdmonitor cbc Uncontroll ed type 2 diabetes mellitus 647384127 E11.65 uncontroll ed DMnow onmetformi n 1000 mg bidlispro sstrulicit y 1.5 mg qdmonitor blood glucose and need to adjust med Essential hypertension 56625128 I10 lasix 20 mg qdmetoprol ol 100 mg qdnorvasc 10 mg qdmonitor bptitrate prn [id number] MALGORZATA Bearden [facility] on [address] [place] [address] 01/10/2020 09:39:18 01/12/2020 10:58:58 Sepsis 96819333 A41.89 see HPIfokarina tejada by ID now to complete ertapenem IV courseHas f/u with ID 01/12 Osteomyeli tis of ankle AND/OR foot 34432555 M86.072 left heel ulcercont wound care as ordered F/u with vascular and wound clinicMoni tor Acute inju ry of kidney 0213544079 5560138 N17.8 presented in ARF with cre>2.0imp roved with IVFmonitor renal functionav oid nephrotoxi c meds as ablenephro consult prn Anemia 440360058 D50.8 chronic anemiacont inue iron 325 mg qdmonitor cbc Uncontroll ed type 2 diabetes mellitus 770664675 E11.65 Blood sugars consistent ly <100D/c lispro insulinCon tmetformin ER 1000 mg dailytruli city 1.5 mg qdlantus 30 units bidmonitor blood glucose and need to adjust med Essential hypertension 65913366 I10 lasix 20 mg qdmetoprol ol 100 mg qdnorvasc 10 mg qdmonitor bp [id number] MALGORZATA Titus [facility] on [address] [place] [phone] 01/19/2020 14:32:57 01/23/2020 16:40:49 Sepsis 07335872 A41.89 continue ertapenem IV course till 01/29f/u with ID Osteomyeli tis of ankle AND/OR foot 80056549 M86.072 cont wound care to left heel as ordered F/u with vascular and wound clinic Acute inju ry of kidney 7206128178 6928202 N17.8 creat normal at 1.0 on 01/10 monitor renal functionav oid nephrotoxi c meds as ablenephro consult prn Anemia 202196616 D50.8 continue iron 325 mg qdmonitor cbc Uncontroll ed type 2 diabetes mellitus 244166796 E11.65 metformin ER 1000 mg daily trulicity 1.5 mg qdlantus 30 units bidmonitor blood glucose, adjust med prn Essential hypertension 06569592 I10 lasix 20 mg qdmetoprol ol xl 100 mg qdnorvasc 10 mg qdmonitor bp [id number] MALGORZATA Bearden [facility] on [address] [place] [address] 01/25/2020 11:20:33 01/30/2020 14:43:12 Sepsis 39989321 A41.89 see HPIfollowe d by ID now to complete ertapenem IV course (end date 01/29)probi oticHas f/u with ID 01/26Follow labs weekly Osteomyeli tis of ankle AND/OR foot 94803783 M86.072 left heel ulcercont wound care as ordered F/u with vascular and wound clinicMoni tor Acute inju ry of kidney 1319648152 4538558 N17.8 presented in ARF with cre>2.0now appears resolved Anemia 607327282 D50.8 chronic anemiacont inue iron 325 mg qdmonitor cbc Uncontroll ed type 2 diabetes mellitus 334229549 E11.65 Blood sugars consistent ly <100metfor min ER 1000 mg dailytruli city 1.5 mg qddecrease lantus 20 units bidmonitor blood glucose and need to adjust med Essential hypertension 80399579 I10 lasix 20 mg qdmetoprol ol 100 mg qdnorvasc 10 mg qdmonitor bp [id number] MALGORZATA Bearden [facility] on [address] [place] [address] 01/31/2020 12:23:07 02/02/2020 16:26:19 Sepsis 93477020 A41.89 see Eric tejada by Betito now completed course ertapenemp robiotic seen by ELIDA 01/26-infadelaide tion felt to be adequately treated, no further antibiotic therapy needed at this time Osteomyeli tis of ankle AND/OR foot 26239412 M86.072 left heel ulcerF/u with vascular and wound clinicVNA services in place to continue daily wound care Acute inju ry of kidney 5327359725 5189684 N17.8 presented in ARF with cre>2.0now appears resolved Anemia 953150508 D50.8 chronic anemiacont inue iron 325 mg qdCBC appears stable Uncontroll ed type 2 diabetes mellitus 773475752 E11.65 Blood sugars consistent ly <100metfor min ER 1000 mg dailytruli city 1.5 mg qddecrease lantus 15 units bidf/u with PCP Essential hypertension 04540061 I10 lasix 20 mg qdmetoprol ol 100 [...] Meadows Member ID Guarantor Name 01/02/2020 1 [facility] - DOS PRIOR TO 2022 - DUAL ELIGIBLE (MEDICARE REPLACEMENT/ADV ANTAGE - HMO) Santhosh Lisseth [id number] Santhosh Lisseth 01/10/2020 1 [facility] - DOS PRIOR TO 2022 - DUAL ELIGIBLE (MEDICARE REPLACEMENT/ADV ANTAGE - HMO) Santhosh Lisseth [id number] Santhosh Lisseth 01/19/2020 1 [facility] - DOS PRIOR TO 2022 - DUAL ELIGIBLE (MEDICARE REPLACEMENT/ADV ANTAGE - HMO) Santhosh Lisseth [id number] Santhosh Lisseth 01/25/2020 1 [facility] - DOS PRIOR TO 2022 - DUAL ELIGIBLE (MEDICARE REPLACEMENT/ADV ANTAGE - HMO) Santhosh Lisseth [id number] Santhosh Lisseth 01/31/2020 1 [facility] - DOS PRIOR TO 2022 - DUAL ELIGIBLE (MEDICARE REPLACEMENT/ADV ANTAGE - HMO) Santhosh Lisseth [id number] Santhosh Lisseth Notes Date Note Type Note Provider Name and Address Organization Details Recorded Time 01/02/2020 text/html Patient is a 54 yo male admit from hospital sent from wound clinic for abnormal MRI. Imaging concerning for osteomyelitis. On presentation bjyw=371 degrees with wbc=20. Found to be in ARF with cre=2.09. Followed by ID and vascular surgery now to complete course of ertapenem PMH significant forHIV positivehtndm uncontrolledanemia admit to facility for continued care and therapy Isidro Marcos MD [address] [place] [address], [address], [place], [address], [employer] 01/02/2020 14:33:33 01/10/2020 text/html 54 yo male seen for acute rounding. Patient admitted for rehab and to complete course IV antibiotics for osteomyelitis of left heel. Patient doing well since admission. No complaints today. Maggi mosher, [employer] 01/10/2020 13:39:59 01/19/2020 text/html pt seen today fo r acute rounding visit. Pt admitted for rehab and to complete course IV antibiotics for osteomyelitis of left heel. pt now able to walk with walker. no diarrhea noted. bp is mildly elevated today. blood glucose checks normal on lantus and metformin. no concerns per nursing. WESTON TitusP [address] [facility], [address], [place], [address], [employer] 01/19/2020 14:39:41 01/25/2020 text/html 54 yo male seen for 30 day routine rounding. Patient admitted to complete course of IV antibiotics for osteomyelitis of left heel. Wound appears to be healing well. Patient ambulating with walker. Denies complaints today. Maggi mosher [facility] 01/25/2020 11:43:17 01/31/2020 text/html 54 yo male seen in preparation for discharge home today. Patient admitted for rehab and to complete IV antibiotic course for osteomyelitis of left heel. Has now completed antibiotic course with infection felt to be resolved per ID. VNA services in place to continue wound care at home. Able to ambulate independently with walker. Maggi mosher [facility] 01/31/2020 13:46:51
--- OUTSIDE RECORDS SUMMARY | 2024-12-01 12:29 | XMS_ITS | Data Portability ---
Author Organization [employer] [place] [employer] [facility] [employer] Address [address] [place] [address] Care Team Providers Care Industrial Refrigeration Mechanic Name Role Phone [facility] Referring Provider Assessment Encounter Date Assessment Date Assessment LastModified by Organization Details LastModified Time 01/06/2023 01/06/2023 I have reviewed and agree with the assessment and plan as documented by the natural gas trader. I provided real-time medical direction for this [...] Orders cephalexin [address] [facility], [address] [place] [address], [id number], 13:31:23 Patient TargetsNo targets recorded. Patient InstructionsNo [...] Address Organization Details Last Updated DateTime 3 37937.5 6 g 100 % 100 % 16 [...] SNOMED-CT Code Diagnosis ICD10 Code Diagnosis Note [id number] Kelley Bowie MD Main - [address] [address] 01/06/2023 13:23:09 01/06/2023 16:14:15 Cellulitis 850619697 L03.90 Health Concerns Section Related Observation LastModified by Organization Detai ls LastModified Time None Recorded Concern Status LastModified by Organization Details LastModified Time None Recorded Advance Directives Directive None Recorded Payers Encounter Date Sequence Insurance Name Policy Number Policy Meadows Covered Member ID Meadows Member ID Guarantor Name 01/06/2023 1 [facility] - DOS ON OR AFTER 2022 - DUAL ELIGIBLE - CARE HOME OPTIONS AND ONE CARE (MEDICARE REPLACEMENT/ADV ANTAGE - HMO) Santhosh Lisseth [id number] Santhosh Bearden Lisseth Notes Date Note Type [...] to process visit Kelley Bowie MD [address] [facility],[address], [place], [address], [facility] 01/06/2023 13:27:04
--- OUTSIDE RECORDS SUMMARY | 2024-12-01 12:29 | XMS_ITS ---
Author Organization [facility] Address [address] [place] [address] Care Team Providers Care Merchandise Deliverer Name Role Phone Ivon Madera Primary Care Provider Aki Millan Unavailable [phone] Encounters Encounter Location Date [facility] [address] [address] 10/29/2023 Aki Khalil Plan Of Treatment No Information Progress Notes * Bettie MUNOZOB:1965 ([age] yo M)Acc No.[id number]:10/29/2023 Progress Notes Patient:?Santhosh MUNOZ Provider:?Aki Khalil DPM :1965???Age:58 Y???Sex:Male Mark e:10/29/2023 Address:[address] [place], [place] [id number] Pcp:Ivon Madera Subjective: * Chief Complaints: * ??? * Medical History:? Objective: * Vitals:? Assessment: Plan: * Treatment: * Images: * The named appointment provid er may or may not be the originator of this progress note, and it is not deemed complete until electronically signed by the appointment provider. Sign off status: Pending * Provider:?Aki Khalil DPM Date:?2023 Generated for Rupesh victor/Sera/eTransmitting on:?12/01/2024 12:28 PM EDT
[2024-12-01 14:33] LABS: Anion Gap 16 (12-20); Blood Urea Nitrogen 45 mg/dL (9-16); Carbon Dioxide 27 mmol/L (22-29); Chloride 101 mmol/L (96-108); Estimated Glomerular Filt Rate 34; Glucose Random 309 mg/dL (60-115); Potassium 4.7 mmol/L (3.3-5.1); Sodium 139 mmol/L (135-145)
[2024-12-01 14:54] LABS: PSA,Total (Free>4and<10) 0.28 ng/mL (0.00-4.00)
== END 2024-12-01 10:50 | disposition home or self-care (01) ==
LOC: HO.CHCLDS 10:49
PROVIDERS: PCP Registered Nurse; Referring Provider Internal Medicine; Visit Provider Registered Nurse
DX: E78.5 Hyperlipidemia, unspecified (principal); E11.9 Type 2 diabetes mellitus without complications; Z79.4 Long term (current) use of insulin; Z12.5 Encounter for screening for malignant neoplasm of prostate
CPT/HCPCS: 36415; 80048; 84153

== ENCOUNTER 2025-06-07 11:15 | Outpatient (REF) | payer OTHER, SELFPAY ==
--- OUTSIDE RECORDS SUMMARY | 2025-06-07 13:40 | XMS_ITS | Clinical Summary ---
Author Organization [facility] Address [address] [place] [address] Phone Care Team Providers Care Shift Mgr Name Role Phone Ivon Madera Primary Care Provider [phone] Allergies Active Allergy Reactions Criticality Noted Date [...] Active Problems Problem Noted Date Diagnosed Date Opioid abuse 09/27/2023 Overview (05/31/2025): Currently on methadone through [facility] of foot 02/25/2023 Amputee 06/05/2022 Hepatitis C antibody detected 06/05/2022 Tobacco user 12/24/2019 Hyperkalemia 11/29/2019 Stage 3b chronic kidney disease 11/29/2019 Diabetic glomerulonephritis 11/29/2019 HIV positive 11/29/2019 Skin ulcer due to diabetes mellitus 11/29/2019 Diabetes mellitus, not otherwise specified Hypertension Albuminuria Resolved Problems Problem Noted Date Diagnosed Date Resolved Date Chronic kidney disease, stage 2 (mild) 09/22/2019 11/29/2019 Dyslipidemia 11/28/2019 Encounters Date Type Department Care Team Description 05/31/2025 Documentation Only [facility] [address] [phone] Oren Saba MD 05/31/2025 Orders Only [facility] [address] [phone] Oren Saba MD Stage 3b chronic kidney disease (HCC); Hypertension; Hyperkalemia; HIV positive (HCC); Hepatitis C antibody detected; Diabetic glomerulonephritis (HCC); Diabetes mellitus, not otherwise specified (HCC); Amputee from Last 3 Months Immunizations Immunization Administration Dates Next Due Hepatitis [...] 05/31/2024 10:54 AM EDT Plan of Treatment Health Maintenance Due Date Last Done Comments Colorectal Cancer Screening: Annual FOBT 2014 Colorectal Cancer Screening: Colonoscopy 2014 Colorectal Cancer Screening: Sigmoidoscopy 2014 Diabetes: Ophthalmology Exam 05/01/2022 Diabetes: Pedal Pulse Checked 05/01/2022 Diabetes: Sensory Foot Exam 05/01/2022 Diabetes: Visual Foot Exam 05/01/2022 Diabetes: Hemoglobin A1C 08/09/2024 05/09/2024, 11/01 Hepatitis B Vaccine (1 of 3 - Risk 3-dose series) 2025 12/18/2017, 11/20/2017, 01/17/1998, Additional history exists Influenza Vaccine (#1) 2025 , 07/11/2021, 08/15/2020, Additional history exists Pneumococcal Vaccine: 50+ Years Completed 05/12/2024, 02/15/2018, 08/28/2014, Additional history exists Pneumococcal Vaccine: Peds ( 0 to 5 Years) and At-Risk Patients (6 to 49 Years) Discontinued 05/12/2024, 02/15/2018, 08/28/2014, Additional history exists Procedures Procedure Name Priority Date/Time Associated Diagnosis Comments LAB FARO DEALER Routine 11/12/2017 12:00 AM EDT from Last 3 Months or Most Recently Relevant to Health Maintenance Results * Lab Daycare Assistant (11/12/2017 12:00 AM EDT) Carbon Dioxide (CO2) [...] ml/min KCTMA 11/12/2017 us Kctma Conversion LAB [id number] LICITED RESULTS Final Result KCTMA from Last 3 Months or Most Recently Relevant to Health Maintenance Insurance Dual SNP ([id number]) [facility] Dual SNP ([id number]) Care Teams Shift Mgr Relationship Specialty Start Date End Date Ivon Madera FNP [address] [place] [address] PCP - General 03/11/22
--- OUTSIDE RECORDS SUMMARY | 2025-06-07 13:40 | XMS_ITS | Data Portability ---
Author Organization [facility] Address [address] [place] [address] Care Team Providers Care Him Specialists Name Role Phone [facility] Referring Provider Assessment Encounter Date Assessment Date Assessment LastModified by Organization Details LastModified Time 01/06/2023 01/06/2023 I have reviewed and agree with the assessment and plan as documented by the sales center manager. I provided real-time medical direction for [...] mg capsule 2022 023 [facility], [address] [place] [address], [id number], 13:31:23 Patient TargetsNo targets recorded. Patient InstructionsNo [...] Available Pentips Pen Needle 32 gauge x /32 USE WITH INSULIN pens active Not Available [...] Respiratory rate Heart rate Body temperature Systolic And Diastolic Provider Name and Address Organization Details Last Updated DateTime 3 80299.5 6 g 100 % 100 % 16 /min 85 /min 97.5 [degF] 159/71 mm[Hg] Not Available [facility] - production 3 13:23:23 Social History None recorded. Functional Status None recorded. Mental Status None recorded. Family History Nothing Reported. Medical History No medical history recorded. Past Encounters Encounter ID Performer Location Encounter Start Date Encounter Closed Date Diagnosis/Indication Diagnosis SNOMED-CT Code Diagnosis ICD10 Code Diagnosis IMO Codes Diagnosis Note [id number] Kelley Bowie MD Main - [facility] [address] [place] [phone] 01/06/2023 13:23:09 01/06/2023 16:14:15 Cellulitis 415364895 L03.90 Health Concerns Section Related Observation LastModified by Organization Detai ls LastModified Time None Recorded Concern Status LastModified by Organization Details LastModified Time None Recorded Advance Directives Directive None Recorded Payers Insurance Date Sequence Insurance Name Policy Number Policy Meadows Covered Member ID Meadows Member ID Guarantor Name 01/06/2023 1 [facility] - DOS ON OR AFTER 2022 - DUAL ELIGIBLE - PRISON OPTIONS AND ONE CARE (MEDICARE REPLACEMENT/ADV ANTAGE - HMO) Santhosh Lisseth [id number] Santhosh Bearden Lisseth Notes Date Note Type [...] that the foot bothers him but he doens t have constant pain. When asked about [...] needed to process visit Kelley Bowie MD [address] [place] [address],[address], [place], [address], [facility] 01/06/2023 13:27:04
--- OUTSIDE RECORDS SUMMARY | 2025-06-07 13:41 | XMS_ITS | Encounter Summary ---
Author Organization [facility] Address [address] [id number] Phone Care Team Providers Care Career Professional Name Role Phone Ivon Madera Primary Care Provider [phone] Encounter Details Date Type Department Care Team (Latest Contact Info) Description 05/31/2025 Orders Only [facility] [address] [id number] Oren Saba MD [address] [id number] Stage 3b chronic kidney disease (HCC); Hypertension; Hyperkalemia; HIV positive (HCC); Hepatitis C antibody detected; Diabetic glomerulonephritis (HCC); Diabetes mellitus, not otherwise specified (HCC); Amputee Social History Tobacco Use Types Packs/Day Years Used Date Smoking Tobacco: Some Days Cigarettes Sex and Gender Information Value Date Recorded Sex Assigned at Not on file Legal Sex Male 2:39 PM EDT Gender Identity Not on file Sexual Orientation Not on file documented as of this encounter Plan of Treatment Not on file documented as of this encounter Visit Diagnoses Diagnosis Stage 3b chronic kidney disease (HCC) Hypertension Hyperkalemia HIV positive (HCC) Hepatitis C antibody detected Diabetic glomerulonephritis (HCC) Diabetes mellitus, not otherwise specified (HCC) Amputee documented in this encounter Care Teams Career Professional Relationship Specialty Start Date End Date Ivon Madera FNP [address] [place] [address] PCP - General 03/11/22 documented as of this encounter
[2025-06-07 14:15] LABS: MANUAL DIFF FLAG NO
[2025-06-07 14:18] LABS: Hematocrit 33.1 % (42.0-52.0); Hemoglobin 11.7 g/dl (14.0-18.0); Imm Gran Abs Auto 0.03 X10*3/uL (0.00-0.03); Imm Gran Pct Auto 0.3 % (0.0-0.4); Lymphocytes Absolute Auto 2.3 X10*3/uL (1.2-4.9); Mean Corpuscular HGB Conc 35.3 g/dl (31.0-36.0); Mean Corpuscular Hemoglobin 31.3 pg (27.0-33.0); Mean Corpuscular Volume 88.5 fL (80.0-98.0); NRBC Abs Auto 0.000 X10*3/uL (0.0-0.012); NRBC Pct Auto 0.0 /100WBC (0.0-0.2); Platelet Count 147 X10*3/uL (160-400); Red Blood Count 3.74 X10*6/uL (4.60-5.80); White Blood Count 8.6 X10*3/uL (4.8-10.8)
[2025-06-07 14:27] LABS: Alanine Aminotransferase 25 U/L (0-40); Albumin Level 4.4 g/dL (3.5-5.0); Alkaline Phosphatase 82 U/L (39-117); Anion Gap 13 (12-20); Aspartate Amino Transferase 29 U/L (5-37); Blood Urea Nitrogen 35 mg/dL (9-16); Calcium 9.4 mg/dL (8.4-10.2); Carbon Dioxide 29 mmol/L (22-29); Chloride 103 mmol/L (96-108); Estimated Glomerular Filt Rate 42; Potassium 4.0 mmol/L (3.3-5.1); Sodium 141 mmol/L (135-145); Total Protein 7.7 g/dL (6.5-8.0)
[2025-06-09 05:08] LABS: HIV RNA PCR Qn Copies 115 copies/mL (NOT DETECTED); HIV RNA PCR Qn Log Copies 2.06 (NOT DETECTED)
[2025-06-14 15:58] LABS: Absolute CD3 Count 1775 cells/uL (840-3060); Absolute CD8 Count 1104 cells/uL (180-1170); Percent CD3 Cells 78 % (57-85); Percent CD8 Cells 49 % (12-42)
== END 2025-06-07 11:16 | disposition home or self-care (01) ==
LOC: HO.CHCLDS 11:15
PROVIDERS: Visit Provider Internal Medicine
DX: Z21 Asymptomatic human immunodeficiency virus [HIV] infection status (principal)
CPT/HCPCS: 36415; 80053; 85025; 86359; 86360; 87536